=== PATIENT | male | born 1960 | race African-American/Black ===

== ENCOUNTER 2017-03-13 13:33 | Emergency (ER) | payer SELFPAY ==
[2017-03-13] MEDS ORDERED: NORMAL SALINE 1000 ML 1,000 ML IV PRN (13:41)
[2017-03-13] MEDS ORDERED: INSULIN REG, HUMAN 100 UNIT/ML 3 ML VIAL (PYX) IV ONE (13:41)
[2017-03-13 13:49] VITALS: BP 182/88
[2017-03-13 13:58] LABS: ABSOLUTE BASOPHILS # (AUTO) 0.1 10^3/uL (0.0-0.2); ABSOLUTE EOSINOPHILS # (AUTO) 0.1 10^3/uL (0.0-0.6); ABSOLUTE LYMPHOCYTES (AUTO) 1.6 10^3/uL (0.5-4.7); ABSOLUTE MONOCYTES (AUTO) 0.5 10^3/uL (0.1-1.4); ABSOLUTE NEUT (AUTO) 4.7 10^3/uL (1.7-8.2); BASOPHILS % (AUTO) 0.8 % (0-2); EOSINOPHILS % (AUTO) 1.7 % (0-6); HEMATOCRIT 43.7 % (37.9-51.0); HEMOGLOBIN 14.8 g/dL (13.5-17.0); HGB HCT DIFFERENCE 0.7; LYMPHOCYTES % (AUTO) 22.7 % (13-45); MEAN CORPUSCULAR HEMOGLOBIN 30.6 pg (27.0-33.4); MEAN CORPUSCULAR HGB CONC 33.8 g/dL (32.0-36.0); MEAN CORPUSCULAR VOLUME 91 fl (80-97); MONOCYTES % (AUTO) 6.9 % (3-13); RED BLOOD COUNT 4.83 10^6/uL (4.35-5.55); RED CELL DISTRIBUTION WIDTH 13.1 % (11.5-14.0); SEGMENTED NEUTROPHILS % (AUTO) 67.9 % (42-78)
--- NOTE | 2017-03-13 14:15 | ER Document Report ---
ED General - General Chief Complaint: High Blood Sugar Stated Complaint: SUGAR CONCERNS Time Seen by Provider: 03/13/17 13:40 Mode of Arrival: Medic Information source: Patient Notes: 56-year-old diabetic male who is homeless and states he has not eaten in 2 days presents with a blood sugar of 500. Patient's only concern is being fed. He denies any fevers or chills denies any nausea vomiting or diarrhea. Patient is insistent that he receive food even though he knows his blood sugar will go up TRAVEL OUTSIDE OF THE [place] IN LAST 30 DAYS: No - HPI Onset: Other Onset/Duration: Persistent Quality of pain: No pain Severity: Mild Pain Level: Denies Associated symptoms: Other Exacerbated by: Denies Relieved by: Denies Similar symptoms previously: Yes Recently seen / treated by doctor: Yes - Related Data Allergies/Adverse Reactions: No Known Allergies Allergy (Verified 01/18/16 04:25) Home Medications: Current Home Medications No Home Medications 03/13/17 [History] Past Medical History - Social History Smoking Status: Never Smoker Cigarette use (# per day): No Chew tobacco use (# tins/day): No Smoking Education Provided: No Family History: Reviewed & Not Pertinent - Past Medical History Cardiac Medical History: Reports: Hx Hypertension Endocrine Medical History: Reports: Hx Diabetes Mellitus Type 1, Hx Diabetes Mellitus Type 2 Psychiatric Medical History: Reports: Hx Depression - anxiety Review of Systems - Review of Systems Notes: REVIEW OF SYSTEMS: CONSTITUTIONAL : Denies fever, chills, or sweats. Denies recent illness. EENT: Denies eye, ear, throat, or mouth pain or symptoms. Denies nasal or sinus congestion or discharge. Denies throat, tongue, or mouth swelling or difficulty swallowing. CARDIOVASCULAR: Denies chest pain. Denies palpitations or racing or irregular heart beat. Denies ankle edema. RESPIRATORY: Denies cough, cold, or chest congestion. Denies shortness of breath, difficulty breathing, or wheezing. GASTROINTESTINAL: Denies abdominal pain or distention. Denies nausea, vomiting , or diarrhea. Denies blood in vomitus, stools, or per rectum. Denies black, tarry stools. Denies constipation. GENITOURINARY: Denies difficulty urinating, painful urination, burning, frequency, blood in urine, or discharge. MUSCULOSKELETAL: Denies back or neck pain or stiffness. Denies joint pain or swelling. SKIN: Denies rash, lesions or sores. HEMATOLOGIC : Denies easy bruising or bleeding. LYMPHATIC: Denies swollen, enlarged glands. NEUROLOGICAL: chronic neuropathy PSYCHIATRIC: Denies anxiety or stress. Denies depression, suicidal ideation, or homicidal ideation. ALL OTHER SYSTEMS REVIEWED AND NEGATIVE. Dictation was performed using [employer] voice recognition software PHYSICAL EXAMINATION: GENERAL: Well-appearing, well-nourished and in no acute distress. HEAD: Atraumatic, normocephalic. EYES: Pupils equal round and reactive to light, extraocular movements intact, sclera anicteric, conjunctiva are normal. ENT: Nares patent, oropharynx clear without exudates. Moist mucous membranes. NECK: Normal range of motion, supple without lymphadenopathy LUNGS: Breath sounds clear to auscultation bilaterally and equal. No wheezes rales or rhonchi. HEART: Regular rate and rhythm without murmurs ABDOMEN: Soft, nontender, nondistended abdomen. No guarding, no rebound. No masses appreciated. Musculoskeletal: Normal range of motion, no pitting or edema. No cyanosis. NEUROLOGICAL: Baseline PSYCH: Normal mood, normal affect. SKIN: Warm, Dry, normal turgor, no rashes or lesions noted. Physical Exam - Vital signs Vitals: Temp Pulse Resp BP Pulse Ox 98.0 F 81 20 182/88 H 99 03/13/17 13:41 03/13/17 13:41 03/13/17 13:41 03/13/17 13:41 03/13/17 13:41 Course - Re-evaluation Re-evalutation: 03/13/17 14:17 Lab work is pending to rule out DKA however patient does not appear to have any signs of diabetic ketoacidosis he is more concerned about eating at this point I have bargained with him that I should bring his blood sugar down before allow him to eat 03/13/17 18:18 Patient's blood sugar did decrease, I stated he could eat, it appears prior to patient being discharged patient wanted to leave. He does not wish to have any medications for home Patient is in no distress at this time does not meet DKA After performing a Medical Screening Examination, I estimate there is LOW risk for RUPTURED ESOPHAGUS, PNEUMOTHORAX, PULMONARY EMBOLISM, ACUTE CORONARY SYNDROME, OR THORACIC AORTIC DISSECTION, thus I consider the discharge disposition reasonable. I have reevaluated this patient multiple times and no significant life threatening changes are noted. The patient and I have discussed the diagnosis and risks, and we agree with discharging home with close follow-up. We also discussed returning to the Emergency Department immediately if new or worsening symptoms occur. We have discussed the symptoms which are most concerning (e.g., bloody sputum, worsening pain or shortness of breath) that necessitate immediate return. - Vital Signs Vital signs: Temp Pulse Resp BP Pulse Ox 98.0 F 81 20 182/88 H 99 03/13/17 13:41 03/13/17 13:41 03/13/17 13:41 03/13/17 13:41 03/13/17 13:41 - Laboratory Result Diagrams: 03/13/17 13:45 03/13/17 13:45 Laboratory results interpreted by me: 03/13/17 03/13/17 03/13/17 13:45 14:43 15:17 Sodium 132.7 L BUN 26 H Creatinine 1.79 H Est GFR ( Amer) 47 L Est GFR (Non-Af Amer) 39 L Glucose 475 H* POC Glucose 150 H Urine Protein 30 H Urine Glucose (UA) >=500 H Urine Ketones TRACE H Urine Blood SMALL H Ur Leukocyte Esterase SMALL H Discharge - Discharge Clinical Impression: Hyperglycemia Condition: Stable Disposition: HOME, SELF-CARE Additional Instructions: Follow up with your physician tomorrow for further care or return to the ED IMMEDIATELY if symptoms worsen or new concerns occur. If you cannot afford to follow up with your primary care physician a list of low cost clinics have been provided at the end of your discharge papers as well. Referrals: LOCAL,NO [Primary Care Provider] - Follow up as needed
[2017-03-13 14:26] LABS: ALANINE AMINOTRANSFERASE 27 U/L (21-72); ALBUMIN 3.9 g/dL (3.5-5.0); ALKALINE PHOSPHATASE 75 U/L (38-126); ANION GAP 11 (5-19); ASPARTATE AMINO TRANSFERASE 17 U/L (17-59); BILIRUBIN,DIRECT 0.4 mg/dL (0.0-0.4); BILIRUBIN,TOTAL 0.8 mg/dL (0.2-1.3); BLOOD UREA NITROGEN 26 mg/dL (7-20); CALCIUM 9.5 mg/dL (8.4-10.2); CARBON DIOXIDE 22 mmol/L (22-30); CHLORIDE 100 mmol/L (98-107); CREATININE RESULT 1.79 mg/dL (0.52-1.25); POTASSIUM 4.2 mmol/L (3.6-5.0); SODIUM 132.7 mmol/L (137-145); TOTAL PROTEIN 6.8 g/dL (6.3-8.2)
[2017-03-13 14:29] LABS: VENOUS BLOOD BASE EXCESS -0.9 mmol/L; VENOUS BLOOD HCO3 24.5 mmol/L (20-32); VENOUS BLOOD PH 7.37 (7.30-7.42)
[2017-03-13 14:39] LABS: GLUCOSE 475 mg/dL (75-110)
[2017-03-13 14:58] LABS: APPEARANCE,URINE SLIGHTLY-CLOUDY; BILIRUBIN,URINE NEGATIVE (NEGATIVE); GLUCOSE, URINE >=500 mg/dL (NEGATIVE); KETONES,URINE TRACE mg/dL (NEGATIVE); LEUKOCYTE ESTERASE,URINE SMALL (NEGATIVE); NITRITE,URINE NEGATIVE (NEGATIVE); PROTEIN,URINE 30 mg/dL (NEGATIVE); URINE SPECIFIC GRAVITY 1.028; UROBILINOGEN,URINE NEGATIVE mg/dL (<2.0)
== END 2017-03-13 16:30 | disposition home or self-care (01) ==
LOC: ER 13:33
DX: E11.65 Type 2 diabetes mellitus with hyperglycemia (principal); E11.40 Type 2 diabetes mellitus with diabetic neuropathy, unspecified; I10 Essential (primary) hypertension; Z59.0 Homelessness
CPT/HCPCS: 99284; 96360; 36415; 82962; 85025; 80053; 81001; 82803; J1815; J7030

== ENCOUNTER 2017-03-13 17:42 | Emergency (ER) | payer SELFPAY ==
[2017-03-13 17:54] VITALS: BP 165/79
--- NOTE | 2017-03-13 18:57 | ER Document Report ---
ED Blood Sugar Problem - General Chief Complaint: High Blood Sugar Stated Complaint: BLOOD SUGAR CONCERN Time Seen by Provider: 03/13/17 18:19 Information source: [facility] Records Notes: This 56-year-old diabetic patient was seen in emergency room earlier today. He had been out of his insulin for 3 months by his history, he is homeless and has no money. His blood sugar was 475. He received IV fluids, insulin, was demanding a meal and was offered crackers to which he became quite rude and abusive toward the nursing staff. His provider got tied up in an emergency and the patient was discharged after he was seen by the patient navigator, the nurse plant production manager, and the psychology product architect. He was given resources. The staff here reports that he left the emergency room with security being involved , that he went to the cafeteria and ate quite a lot of food to run his blood sugar back up. Apparently this is what happened because his sugar was over 400 when he came back again, most recently was 387. Review of his records for the past 14 months shows he has never been ketotic or acidotic. Today there was trace ketones in the urine and that is the only time there has been any ketones in the urine. I suggested to the patient that he should probably take metformin and glyburide , as these are on the $4 list, it is not critical he take insulin since he is obviously not insulin-dependent he has insulin resistant. He went into a long dissertation about his lack of funds, lack of resources, diabetic neuropathy, being unable to work etc. The nursing staff reported that he had been receiving medications for free for quite some time but apparently does not any longer. He will be given an oral dose of metformin, glyburide and lisinopril. He will also be given prescriptions prescriptions for those medications at this time. They are all on the $4 list at [facility]. TRAVEL OUTSIDE OF THE [place] IN LAST 30 DAYS: No - Related Data Allergies/Adverse Reactions: No Known Allergies Allergy (Verified 01/18/16 04:25) Past Medical History - General Information source: Patient, [facility] Records - Social History Smoking Status: Never Smoker Cigarette use (# per day): No Chew tobacco use (# tins/day): No Smoking Education Provided: No Frequency of alcohol use: None Drug Abuse: None Occupation: Unemployed Lives with: Homeless Family History: Reviewed & Not Pertinent - Past Medical History Cardiac Medical History: Reports: Hx Hypertension Pulmonary Medical History: Reports: None EENT Medical History: Reports: None Neurological Medical History: Reports: Other - Diabetic peripheral neuropathy Endocrine Medical History: Reports: Hx Diabetes Mellitus Type 2 Renal/ Medical History: Reports: None GI Medical History: Reports: None Musculoskeltal Medical History: Reports None Psychiatric Medical History: Reports: Hx Depression - anxiety Surgical Hx: Negative Review of Systems - Review of Systems Constitutional: Other - Increased thirst EENT: No symptoms reported Cardiovascular: No symptoms reported Respiratory: No symptoms reported Gastrointestinal: No symptoms reported Genitourinary: Other - Increased urination Musculoskeletal: See HPI Skin: No symptoms reported Hematologic/Lymphatic: No symptoms reported Neurological/Psychological: Other - Numbness tingling pain to the feet secondary to diabetic peripheral neuropathy Physical Exam - Vital signs Vitals: Temp Pulse Resp BP Pulse Ox 98.3 F 83 16 165/79 H 98 03/13/17 17:53 03/13/17 17:53 03/13/17 17:53 03/13/17 17:53 03/13/17 17:53 Interpretation: Normal - General General appearance: Appears well, Alert In distress: None - HEENT Head: Normocephalic, Atraumatic Eyes: Normal Pupils: PERRL - Respiratory Respiratory status: No respiratory distress - Cardiovascular Rhythm: Regular - Abdominal Inspection: Normal - Back Back: Normal - Extremities General upper extremity: Normal inspection General lower extremity: Normal inspection - Neurological Neuro grossly intact: Yes - Psychological Associated symptoms: Normal affect, Normal mood Course - Re-evaluation Re-evalutation: 03/13/17 19:25 When I tried to explain to the patient that he is receiving the medications that would be adequate for his problem, he became somewhat belligerent argumentative stating he needed to be admitted to the hospital and monitored. I told him he has never been acidotic, never been ketotic on any other visits here since early 2015. He want to argue about his history prior to that. I reiterated that he did not need to be in the hospital to take outpatient medications. I have eventually felt it necessary to call security to deal with this unreasonable man who wants us to solve all his problems for him without any effort on his part. - Vital Signs Vital signs: Temp Pulse Resp BP Pulse Ox 98.3 F 83 16 165/79 H 98 03/13/17 17:53 03/13/17 17:53 03/13/17 17:53 03/13/17 17:53 03/13/17 17:53 Discharge - Discharge Clinical Impression: High blood pressure associated with diabetes Hyperglycemia due to type 2 diabetes mellitus Qualifiers: Diabetes mellitus group home insulin use: unspecified group home insulin use status Qualified Code(s): E11.65 - Type 2 diabetes mellitus with hyperglycemia Condition: Stable Disposition: HOME, SELF-CARE Additional Instructions: The medications that were prescribed for you to treat your diabetes and high blood pressure on the $4 month list at [facility]. You wre given a dose of these medications now and should be fine until tomorrow. You should make arrangements to secure the medications that you need to manage your medical problems. Use the resource list are provided earlier, follow-up with social sciences research scientist and explore any other options that may be out of their in the community for assistance. Prescriptions: Glyburide 2.5 mg PO DAILY #30 tablet Lisinopril 20 mg PO DAILY #30 tablet Metformin HCl [Glucophage] 850 mg PO BID #60 tablet
[2017-03-13] MEDS ORDERED: LISINOPRIL 10 MG TABLET PO ONE (19:15)
[2017-03-13] MEDS ORDERED: METFORMIN HCL 500 MG TABLET PO ONE (19:15)
[2017-03-13] MEDS ORDERED: GLYBURIDE 2.5 MG TABLET PO ONE (19:16)
== END 2017-03-13 19:42 | disposition home or self-care (01) ==
LOC: ER 17:42
DX: E11.65 Type 2 diabetes mellitus with hyperglycemia (principal); T38.3X6A Underdosing of insulin and oral hypoglycemic [antidiabetic] drugs, initial encounter; Z91.120 Patient's intentional underdosing of medication regimen due to financial hardship; Z91.14 Patient's other noncompliance with medication regimen; E11.40 Type 2 diabetes mellitus with diabetic neuropathy, unspecified; I15.2 Hypertension secondary to endocrine disorders
CPT/HCPCS: 99283; 82962; J3490

== ENCOUNTER 2017-05-01 12:55 | Inpatient (IN) | payer OTHER ==
[2017-05-01] MEDS ORDERED: NORMAL SALINE 1000 ML 1,000 ML IV ONE ×2 (13:28)
[2017-05-01 13:44] LABS: ABSOLUTE BASOPHILS # (AUTO) 0.1 10^3/uL (0.0-0.2); ABSOLUTE LYMPHOCYTES (AUTO) 0.9 10^3/uL (0.5-4.7); ABSOLUTE MONOCYTES (AUTO) 1.3 10^3/uL (0.1-1.4); ABSOLUTE NEUT (AUTO) 11.3 10^3/uL (1.7-8.2); BASOPHILS % (AUTO) 0.4 % (0-2); EOSINOPHILS % (AUTO) 0.3 % (0-6); HEMATOCRIT 39.7 % (37.9-51.0); HEMOGLOBIN 13.1 g/dL (13.5-17.0); LYMPHOCYTES % (AUTO) 6.7 % (13-45); MEAN CORPUSCULAR HGB CONC 32.9 g/dL (32.0-36.0); MEAN CORPUSCULAR VOLUME 91 fl (80-97); MONOCYTES % (AUTO) 9.5 % (3-13); PLATELET COUNT 241 10^3/uL (150-450); RED BLOOD COUNT 4.36 10^6/uL (4.35-5.55); RED CELL DISTRIBUTION WIDTH 13.3 % (11.5-14.0); SEGMENTED NEUTROPHILS % (AUTO) 83.1 % (42-78); TOTAL CELLS COUNTED % (AUTO) 100 %; WHITE BLOOD COUNT 13.6 10^3/uL (4.0-10.5)
[2017-05-01 13:50] LABS: VENOUS BLOOD BASE EXCESS -3.1 mmol/L; VENOUS BLOOD HCO3 21.7 mmol/L (20-32); VENOUS BLOOD PCO2 37.9 mmHg (35-63); VENOUS BLOOD PH 7.38 (7.30-7.42)
[2017-05-01 14:19] LABS: ALANINE AMINOTRANSFERASE 20 U/L (21-72); ALBUMIN 3.5 g/dL (3.5-5.0); ALKALINE PHOSPHATASE 135 U/L (38-126); ANION GAP 16 (5-19); ASPARTATE AMINO TRANSFERASE 25 U/L (17-59); BILIRUBIN,DIRECT 0.6 mg/dL (0.0-0.4); BILIRUBIN,TOTAL 0.7 mg/dL (0.2-1.3); BLOOD UREA NITROGEN 29 mg/dL (7-20); CALCIUM 8.5 mg/dL (8.4-10.2); CARBON DIOXIDE 20 mmol/L (22-30); CHLORIDE 95 mmol/L (98-107); SODIUM 130.5 mmol/L (137-145); TOTAL PROTEIN 7.6 g/dL (6.3-8.2)
[2017-05-01 14:22] LABS: AMORPHOUS SEDIMENT,URINE TRACE /HPF; APPEARANCE,URINE SLIGHTLY-CLOUDY; BILIRUBIN,URINE NEGATIVE (NEGATIVE); COLOR,URINE STRAW; GLUCOSE, URINE >=500 mg/dL (NEGATIVE); KETONES,URINE 20 mg/dL (NEGATIVE); LEUKOCYTE ESTERASE,URINE SMALL (NEGATIVE); NITRITE,URINE NEGATIVE (NEGATIVE); PROTEIN,URINE 30 mg/dL (NEGATIVE); URINE SPECIFIC GRAVITY 1.024; UROBILINOGEN,URINE NEGATIVE mg/dL (<2.0)
[2017-05-01 14:40] LABS: GLUCOSE 584 mg/dL (75-110)
[2017-05-01] MEDS ORDERED: INSULIN REG, HUMAN 100 UNIT/ML 3 ML VIAL (PYX) SUBCUT ONE (15:30)
--- NOTE | 2017-05-01 15:36 | RADIOLOGY REPORT (SQ) ---
EXAM DESCRIPTION: FOOT RIGHT COMPLETE COMPLETED DATE/TIME: 05/01/2017 3:23 pm REASON FOR STUDY: gangrene, fracture? COMPARISON: 10/02/2015 NUMBER OF VIEWS: Three views. TECHNIQUE: AP, lateral and oblique radiographic images acquired of the right foot. LIMITATIONS: None. FINDINGS: MINERALIZATION: Normal. BONES: Old healed fractures involving the base of the 4th and 5th metatarsals. There is slightly sha ggy appearance involving the prior fracture sites which may represent sequela to prior healing or sup erimposed osteomyelitis. Osseous structures otherwise intact. JOINTS: No effusions. SOFT TISSUES: Diffuse soft tissue swelling most notably laterally. Vascular calcifications. OTHER: No other significant finding. IMPRESSION: PATIENT WITH PRIOR HEALED 4TH AND 5TH METATARSAL FRACTURES WITH SHAGGY APPEARANCE INVOLV ING THE FRACTURE SITES WHICH COULD REPRESENT SEQUELA OF THE PRIOR HEALING OR SUPERIMPOSED OSTEOMYELIT IS GIVEN PATIENT'S HISTORY OF ULCERATION. MRI IS FOR FURTHER EVALUATION CLINICALLY INDICATED. TECHNICAL DOCUMENTATION: JOB ID: [id number] [employer]- All Rights Reserved
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
[2017-05-01] MEDS ORDERED: ONDANSETRON 4 MG TAB.RAPDIS PO PRN (16:30)
[2017-05-01] MEDS ORDERED: ACETAMINOPHEN 325 MG TABLET PO PRN (16:30)
[2017-05-01] MEDS ORDERED: NORMAL SALINE 1000 ML 1,000 ML IV PRN (16:30)
[2017-05-01] MEDS ORDERED: ONDANSETRON HCL INJ/PF 4 MG/2 ML SDV IV PRN (16:30)
[2017-05-01] MEDS ORDERED: DEXTROSE 40% GEL 15 GM TUBE PO PRN ×2 (16:38)
[2017-05-01] MEDS ORDERED: GLUCAGON,HUMAN RECOMB 1 MG INJ IM PRN (16:38)
[2017-05-01] MEDS ORDERED: DEXTROSE 50%-WATER 25 GM/50 ML DISP.SYRIN IV PRN ×2 (16:38)
--- NOTE | 2017-05-01 16:48 | PDOC H&P ---
History of Present Illness Admission Date/PCP: 05/01/17 16:21 Patient complains of: Pain in his right foot. History of Present Illness: LEEANNE WYLIE is a 56 year old male who has a history of diabetes and is homeless. He reports that he has had an ulcer on the lateral part of his right foot for the last 3 months over the last several days she has had worsening pain and some fevers and chills at home. He is also had nausea and has had difficulty tolerating p.o. He reports that he gets cold at night because he is homeless but even during the daytime has developed some chills. He denies any purulent drainage from the wound however he does report a significant amount of pain. Patient has been evaluated by surgery and they recommend an MRI to make certain he does not have osteomyelitis. The patient is admitted for treatment of a diabetic foot ulcer and possible osteomyelitis of the right foot. Past Medical History Cardiac Medical History: Reports: Hyperlipidema, Hypertension Pulmonary Medical History: Reports: None EENT Medical History: Reports: None Neurological Medical History: Reports: None Endocrine Medical History: Reports: Diabetes Mellitus Type 2 Malignancy Medical History: Reports: None GI Medical History: Reports: None Psychiatric Medical History: Reports: Depression - anxiety Traumatic Medical History: Reports: None Hematology: Reports: None Infectious Medical History: Reports: None Past Surgical History Past Surgical History: Reports: Other - Umbilical hernia repair Social History Information Source: Patient Lives with: Homeless Smoking Status: Current Every Day Smoker Frequency of Alcohol Use: None Hx Recreational Drug Use: No Drugs: None Hx Prescription Drug Abuse: No - Advance Directive Resuscitation Status: Full Code Family History Family History: Father in his 60s but no complications. Mother in her 30s from diabetes. Parental Family History Reviewed: Yes Children Family History Reviewed: No Sibling(s) Family History Reviewed.: No Medication/Allergy Home Medications: No Home Medications 05/01/17 Allergies/Adverse Reactions: metformin Allergy (Verified 05/01/17 13:30) 70/30 insulin Allergy (Uncoded 05/01/17 13:30) Review of Systems Constitutional: PRESENT: anorexia, chills, fever(s). ABSENT: night sweats Eyes: ABSENT: visual disturbances Ears: ABSENT: hearing changes Cardiovascular: ABSENT: chest pain, dyspnea on exertion, edema, orthropnea, palpitations Respiratory: ABSENT: cough, hemoptysis Gastrointestinal: ABSENT: abdominal pain, constipation, diarrhea, hematemesis, hematochezia, nausea, vomiting Musculoskeletal: PRESENT: other - Pain in his right foot. Integumentary: PRESENT: other - Patient has an approximately 4 cm ulcer on his right lateral foot about mid shaft over the fifth metatarsal Neurological: PRESENT: paresthesias Psychiatric: ABSENT: depression Endocrine: ABSENT: cold intolerance, heat intolerance, polydipsia, polyuria Hematologic/Lymphatic: ABSENT: easy bleeding, easy bruising Physical Exam Vital Signs: Temp Pulse Resp BP Pulse Ox 24 H 176/79 H 96 05/01/17 15:01 05/01/17 15:01 05/01/17 15:01 General appearance: PRESENT: no acute distress Head exam: PRESENT: atraumatic, normocephalic Eye exam: PRESENT: conjunctiva pink, EOMI, PERRLA. ABSENT: scleral icterus Ear exam: PRESENT: normal external ear exam Mouth exam: PRESENT: moist, tongue midline Neck exam: ABSENT: carotid bruit, JVD, lymphadenopathy, thyromegaly Respiratory exam: PRESENT: clear to auscultation manuel. ABSENT: rales, rhonchi, wheezes Cardiovascular exam: PRESENT: RRR. ABSENT: diastolic murmur, rubs, systolic murmur GI/Abdominal exam: PRESENT: normal bowel sounds, soft. ABSENT: distended, guarding, mass, organolmegaly, rebound, tenderness Rectal exam: PRESENT: deferred Extremities exam: PRESENT: other - Ulcer on the right lateral foot.. ABSENT: calf tenderness, clubbing, pedal edema Neurological exam: PRESENT: alert, awake, oriented to person, oriented to place , oriented to time, oriented to situation, CN II-XII grossly intact. ABSENT: motor sensory deficit Psychiatric exam: PRESENT: appropriate affect Skin exam: PRESENT: other - Patient has a diabetic foot ulcer on his lateral midfoot area over the fifth metatarsal area. There is some eschar make stage in this difficult at this time. He does have tender with palpation of the fifth metatarsal. Results Impressions: Foot X-Ray 05/01/17 14:36 IMPRESSION: PATIENT WITH PRIOR HEALED 4TH AND 5TH METATARSAL FRACTURES WITH SHAGGY APPEARANCE INVOLVING THE FRACTURE SITES WHICH COULD REPRESENT SEQUELA OF THE PRIOR HEALING OR SUPERIMPOSED OSTEOMYELITIS GIVEN PATIENT'S HISTORY OF ULCERATION. MRI IS FOR FURTHER EVALUATION CLINICALLY INDICATED. Assessment & Plan - Diagnosis (1) Diabetic foot infection Is this a current diagnosis for this admission?: Yes Plan: Patient is to get an MRI to see if there is any osteomyelitis. General surgery has evaluated the patient and most likely will be doing debridement. Will start on Zosyn. He has no history of MRSA. (2) Hypertension Is this a current diagnosis for this admission?: Yes Plan: His blood pressures currently elevated but is in a good bit of pain. We will treat his pain and his blood pressure still remains elevated we will start on Norvasc which she has taken previously. He is also been on Prinivil previously. 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 We will go ahead and start him on 20 units of Lantus twice daily and sliding scale insulin. (4) Hyperlipidemia Is this a current diagnosis for this admission?: Yes - Time Time Spent: 50 to 70 Minutes - Inpatient Certification Medical Necessity: Need Close Monitoring Due to Risk of Patient Decompensation, Need for IV Antibiotics
[2017-05-01] MEDS: OXYCODONE-ACETAMINOPHEN 5-325 MG TABLET PO PRN (17:27)
--- NOTE | 2017-05-01 17:33 | RADIOLOGY REPORT (SQ) ---
EXAM DESCRIPTION: MRI RT LOWER EXTREMITY WITHOUT COMPLETED DATE/TIME: 05/01/2017 5:09 pm REASON FOR STUDY: ulceration, gangrene? osteo? COMPARISON: RIGHT FOOT FILMS 05/01/2017, 10/02/2015 TECHNIQUE: Multiplanar imaging of the RIGHT FOOT to include fat and fluid sensitive sequences. LIMITATIONS: None. FINDINGS: Patient has a 2 x 1.7 cm diameter soft tissue ulcer along the lateral and plantar aspect o f the midfoot near the base of the 5th metatarsal. There is a trace amount of fluid in the soft tissues along the base of the 5th metatarsal on coronal image 17 and axial image 29. Periosteal new bone seen in this area on plain films 10/02/2015 has reso rt. There is cortical thinning, and abnormal bone marrow signal of the proximal half of the 5th meta tarsal compatible with osteomyelitis. The peroneus brevis insertion on the base of the 5th metatarsal is intact. There is diffuse forefoot cellulitis and myositis, intra osseous muscles are edematous on STIR images . There is diffuse skin thickening and subcutaneous edema throughout the forefoot. No other marrow signal abnormalities worrisome for osteomyelitis. IMPRESSION: Ulcer over the base of the 5th metatarsal with bony cortical with erosion and abnormal m arrow signal in the proximal 2/3 of the 5th metatarsal compatible with osteomyelitis. TECHNICAL DOCUMENTATION: JOB ID: [id number] ID [employer]- All Rights Reserved
[2017-05-01] MEDS ORDERED: INFLUENZA ADLT QUAD (36MOS+) 2017-18 VAC 0.5 ML SYR IM PRN (19:02)
[2017-05-01] MEDS: PIPERACILLIN SODIUM/TAZOBACTAM 3.375 GM in NORMAL SALINE 100 ML IV SCH ×2 (19:21→23:27)
--- NOTE | 2017-05-01 20:26 | PDOC CONSULTATION ---
Consultation Consult Date: 05/01/17 Consult reason:: chronic ulcer right foot with osteomyelitis 5th mettatarsal History of Present Illness Admission Date/PCP: 05/01/17 16:30 Patient complains of: right foot pains History of Present Illness: This is a 56-year-old male with diabetes and homeless noted to have ulcer along the right foot for several months. Recently complaining of severe pains and worst today and came to the ED. MRI of the right foot revealed osteomyelitis of the distal right fifth metatarsal bone. Past Medical History Cardiac Medical History: Reports: Hyperlipidema, Hypertension Pulmonary Medical History: Reports: None EENT Medical History: Reports: None Neurological Medical History: Reports: None Endocrine Medical History: Reports: Diabetes Mellitus Type 1, Diabetes Mellitus Type 2 Malignancy Medical History: Reports: None GI Medical History: Reports: None Psychiatric Medical History: Reports: Depression Traumatic Medical History: Reports: None Hematology: Reports: None Infectious Medical History: Reports: None Past Surgical History Past Surgical History: Reports: Other - Umbilical hernia repair Social History Lives with: Homeless Smoking Status: Current Every Day Smoker Number of Years Smokin Frequency of Alcohol Use: None Hx Recreational Drug Use: No Drugs: None Hx Prescription Drug Abuse: No - Advance Directive Resuscitation Status: Full Code Family History Family History: Reviewed & Not Pertinent Parental Family History Reviewed: No Children Family History Reviewed: No Sibling(s) Family History Reviewed.: No Medication/Allergy Home Medications: No Home Medications 05/01/17 Allergies/Adverse Reactions: metformin Allergy (Verified 05/01/17 13:30) 70/30 insulin Allergy (Uncoded 05/01/17 13:30) Review of Systems Constitutional: PRESENT: chills Eyes: PRESENT: other - No apparent visual or hearing changes Cardiovascular: PRESENT: other - Denies chest pains nor shortness of breath Gastrointestinal: PRESENT: other - No nausea vomiting diarrhea no constipation Genitourinary: PRESENT: other - No dysuria Musculoskeletal: PRESENT: other - Severe pains along the right foot where the ulcer is and metatarsal bone appears to be somewhat exposed Integumentary: PRESENT: other - Chronic ulcer and painful diabetic ulcer right foot Neurological: PRESENT: numbness - Is initially numbness of both feet but now with severe pains along the right foot ulcer Physical Exam Vital Signs: Temp Pulse Resp BP Pulse Ox 100.1 F 76 18 132/57 H 97 05/01/17 17:25 11/10/17 17:25 05/01/17 17:25 05/01/17 17:25 05/01/17 17:25 General appearance: PRESENT: mild distress Head exam: PRESENT: atraumatic, normocephalic Eye exam: PRESENT: conjunctiva pink Mouth exam: PRESENT: moist, tongue midline Neck exam: PRESENT: full ROM Respiratory exam: PRESENT: clear to auscultation manuel Cardiovascular exam: PRESENT: RRR Pulses: PRESENT: +2 pedal pulses bilateral Vascular exam: PRESENT: normal capillary refill GI/Abdominal exam: PRESENT: soft - Nontender Rectal exam: PRESENT: deferred Extremities exam: PRESENT: other - Is about a 2 x 3 cm ulceration along the right lateral foot with marked tenderness and some swelling. The bone appears to be partially exposed. Musculoskeletal exam: PRESENT: tenderness - Tenderness along the right lateral foot Neurological exam: PRESENT: alert, oriented to person, oriented to place, oriented to time, oriented to situation Psychiatric exam: PRESENT: appropriate affect Skin exam: PRESENT: other - Ulceration along the right lateral foot with Marcaine tenderness and some swelling. Results Impressions: Foot X-Ray 05/01/17 14:36 IMPRESSION: PATIENT WITH PRIOR HEALED 4TH AND 5TH METATARSAL FRACTURES WITH SHAGGY APPEARANCE INVOLVING THE FRACTURE SITES WHICH COULD REPRESENT SEQUELA OF THE PRIOR HEALING OR SUPERIMPOSED OSTEOMYELITIS GIVEN PATIENT'S HISTORY OF ULCERATION. MRI IS FOR FURTHER EVALUATION CLINICALLY INDICATED. Lower Extremity MRI 05/01/17 15:51 IMPRESSION: Ulcer over the base of the 5th metatarsal with bony cortical with erosion and abnormal marrow signal in the proximal 2/3 of the 5th metatarsal compatible with osteomyelitis. Assessment & Plan - Time Time Spent: 50 to 70 Minutes - Inpatient Certification Medical Necessity: Need for Pain Control, Need for IV Antibiotics, Need for Surgery - Plan Summary Plan Summary: Patient will need amputation of the right fifth metatarsal bone where the osteomyelitis is. This will be done within the next 24 4-48 hours as soon as he is blood sugar is well controlled and antibiotic therapy has been set.
[2017-05-01] MEDS: MORPHINE SULFATE 10 MG/ML INJ IV PRN (21:22)
[2017-05-01] MEDS: FAMOTIDINE 20 MG TABLET PO SCH (21:23)
[2017-05-01] MEDS ORDERED: INSULIN GLARGINE,HUM.REC.ANLOG 300 UNIT/3 ML INSULN.PEN SUBCUT SCH (22:00)
[2017-05-02] MEDS: MORPHINE SULFATE 10 MG/ML INJ IV PRN (03:41)
[2017-05-02] MEDS: OXYCODONE-ACETAMINOPHEN 5-325 MG TABLET PO PRN ×3 (03:42→20:03)
[2017-05-02 04:49] LABS: ABSOLUTE EOSINOPHILS # (AUTO) 0.1 10^3/uL (0.0-0.6); ABSOLUTE LYMPHOCYTES (AUTO) 1.5 10^3/uL (0.5-4.7); ABSOLUTE MONOCYTES (AUTO) 1.4 10^3/uL (0.1-1.4); BASOPHILS % (AUTO) 0.2 % (0-2); EOSINOPHILS % (AUTO) 0.6 % (0-6); HEMATOCRIT 34.6 % (37.9-51.0); HEMOGLOBIN 11.5 g/dL (13.5-17.0); LYMPHOCYTES % (AUTO) 11.5 % (13-45); MEAN CORPUSCULAR HEMOGLOBIN 29.6 pg (27.0-33.4); MEAN CORPUSCULAR HGB CONC 33.1 g/dL (32.0-36.0); MEAN CORPUSCULAR VOLUME 89 fl (80-97); MONOCYTES % (AUTO) 10.9 % (3-13); PLATELET COUNT 233 10^3/uL (150-450); RED BLOOD COUNT 3.88 10^6/uL (4.35-5.55); RED CELL DISTRIBUTION WIDTH 13.1 % (11.5-14.0); SEGMENTED NEUTROPHILS % (AUTO) 76.8 % (42-78); TOTAL CELLS COUNTED % (AUTO) 100 %
[2017-05-02 04:50] LABS: INTERNATIONAL RATION (INR) 0.98; PROTHROMBIN TIME 13.7 SEC (11.4-15.4)
[2017-05-02] MEDS: PIPERACILLIN SODIUM/TAZOBACTAM 3.375 GM in NORMAL SALINE 100 ML IV SCH ×3 (05:07→19:18)
[2017-05-02 05:12] LABS: ANION GAP 12 (5-19); BLOOD UREA NITROGEN 24 mg/dL (7-20); CALCIUM 8.3 mg/dL (8.4-10.2); CARBON DIOXIDE 19 mmol/L (22-30); CHLORIDE 106 mmol/L (98-107); GLUCOSE 268 mg/dL (75-110); MAGNESIUM 2.3 mg/dL (1.6-2.3); POTASSIUM 3.7 mmol/L (3.6-5.0); SODIUM 136.9 mmol/L (137-145)
[2017-05-02] MEDS: INSULIN LISPRO 100 UNIT/ML 3 ML VIAL SUBCUT PRN ×3 (07:29→21:56)
[2017-05-02] MEDS ORDERED: DEXTROSE 5%-NORMAL SALINE 1,000 ML IV PRN (09:03)
[2017-05-02] MEDS: IPRATROPIUM/ALBUTEROL 0.5-2.5 MG/3 ML AMPUL NEB PRN (09:09)
[2017-05-02] MEDS ORDERED: FENTANYL CITRATE INJ/PF 100 MCG/2 ML AMPUL IV PRN ×3 (09:14)
[2017-05-02] MEDS ORDERED: MORPHINE SULFATE 10 MG/ML INJ IV PRN (09:14)
[2017-05-02] MEDS ORDERED: PROMETHAZINE HCL INJ 25 MG/1 ML VIAL IV PRN (09:14)
[2017-05-02] MEDS ORDERED: DIPHENHYDRAMINE HCL 50 MG/ML VIAL IV PRN (09:14)
[2017-05-02] MEDS ORDERED: MEPERIDINE HCL/PF INJ 25 MG/1 ML DISP.SYRIN IV PRN (09:14)
[2017-05-02] MEDS ORDERED: FENTANYL CITRATE INJ/PF 100 MCG/2 ML AMPUL ONE ×2 (09:53→12:00)
[2017-05-02] MEDS ORDERED: ONDANSETRON HCL INJ/PF 4 MG/2 ML SDV ONE (09:53)
[2017-05-02] MEDS ORDERED: MIDAZOLAM 2 MG/2 ML INJ ONE (09:53)
[2017-05-02] MEDS ORDERED: PROPOFOL INJ 200 MG/20 ML VIAL IV ONE (09:53)
[2017-05-02] MEDS ORDERED: LIDOCAINE 1% INJ-PF (10 MG/ML) 30 ML SDV ONE (10:26)
--- NOTE | 2017-05-02 11:04 | PDOC PROGRESS REPORT ---
Subjective Progress Note for:: 05/02/17 Subjective:: Complains of pain in his right foot. Physical Exam Vital Signs: Temp Pulse Resp BP Pulse Ox 98.5 F 60 16 154/96 H 99 05/02/17 07:35 05/02/17 09:09 05/02/17 09:09 05/02/17 07:35 05/02/17 09:09 Intake & Output 05/01/17 05/02/17 05/03/17 06:59 06:59 06:59 Intake Total 150 225 Output Total 0 225 Balance 150 0 Weight 75 kg 75 kg General appearance: PRESENT: no acute distress Eye exam: PRESENT: conjunctiva pink. ABSENT: scleral icterus Mouth exam: PRESENT: moist, tongue midline Neck exam: ABSENT: JVD Respiratory exam: PRESENT: clear to auscultation manuel. ABSENT: rales, rhonchi, wheezes Cardiovascular exam: PRESENT: RRR. ABSENT: diastolic murmur, rubs, systolic murmur Pulses: PRESENT: normal dorsalis pedis pul GI/Abdominal exam: PRESENT: normal bowel sounds, soft. ABSENT: distended, guarding, mass, organolmegaly, rebound, tenderness Extremities exam: ABSENT: calf tenderness, clubbing, pedal edema Neurological exam: PRESENT: alert, awake, oriented to person, oriented to place , oriented to time, oriented to situation, CN II-XII grossly intact. ABSENT: motor sensory deficit Psychiatric exam: PRESENT: appropriate affect Skin exam: PRESENT: other - The patient has a diabetic foot ulcer on the right lateral mid foot area of the fifth met metatarsal Results Laboratory Results: 05/02/17 03:34 05/02/17 03:34 05/02/17 05/02/17 03:34 03:34 WBC 13.0 H RBC 3.88 L Hgb 11.5 L Hct 34.6 L MCV 89 MCH 29.6 MCHC 33.1 RDW 13.1 Plt Count 233 Seg Neutrophils % 76.8 Lymphocytes % 11.5 L Monocytes % 10.9 Eosinophils % 0.6 Basophils % 0.2 Absolute Neutrophils 10.0 H Absolute Lymphocytes 1.5 Absolute Monocytes 1.4 Absolute Eosinophils 0.1 Absolute Basophils 0.0 Sodium 136.9 L Potassium 3.7 Chloride 106 Carbon Dioxide 19 L Anion Gap 12 BUN 24 H Creatinine 1.36 H Est GFR ( Amer) > 60 Est GFR (Non-Af Amer) 54 L Glucose 268 H Calcium 8.3 L Magnesium 2.3 Impressions: Foot X-Ray 05/01/17 14:36 IMPRESSION: PATIENT WITH PRIOR HEALED 4TH AND 5TH METATARSAL FRACTURES WITH SHAGGY APPEARANCE INVOLVING THE FRACTURE SITES WHICH COULD REPRESENT SEQUELA OF THE PRIOR HEALING OR SUPERIMPOSED OSTEOMYELITIS GIVEN PATIENT'S HISTORY OF ULCERATION. MRI IS FOR FURTHER EVALUATION CLINICALLY INDICATED. Lower Extremity MRI 05/01/17 15:51 IMPRESSION: Ulcer over the base of the 5th metatarsal with bony cortical with erosion and abnormal marrow signal in the proximal 2/3 of the 5th metatarsal compatible with osteomyelitis. Assessment & Plan - Diagnosis (1) Diabetic foot infection Is this a current diagnosis for this admission?: Yes Plan: Patient had an MRI that shows osteomyelitis. General surgery has evaluated the patient and will be taking the patient for debridement. Will continue with Zosyn. He has no history of MRSA. (2) Hypertension Is this a current diagnosis for this admission?: Yes Plan: His blood pressures currently elevated but is in a good bit of pain. Will restart his Norvasc.. (3) Uncontrolled type 2 diabetes mellitus Qualifiers: Diabetes mellitus complication status: with unspecified complications Diabetes mellitus care home insulin use: without care home use Qualified Code( s): E11.8 - Type 2 diabetes mellitus with unspecified complications; E11.65 - Type 2 diabetes mellitus with hyperglycemia; E11.65 - Type 2 diabetes mellitus with hyperglycemia; E11.65 - Type 2 diabetes mellitus with hyperglycemia; E11.65 - Type 2 diabetes mellitus with hyperglycemia Is this a current diagnosis for this admission?: Yes Plan: Will increase the Lantus and continue sliding scale insulin. (4) Hyperlipidemia Is this a current diagnosis for this admission?: Yes - Time Time Spent with patient: 25-34 minutes - Inpatient Certification Medical Necessity: Need for IV Antibiotics
[2017-05-02] MEDS: INSULIN GLARGINE,HUM.REC.ANLOG 300 UNIT/3 ML INSULN.PEN SUBCUT SCH ×2 (11:19→21:56)
[2017-05-02] MEDS: FAMOTIDINE 20 MG TABLET PO SCH ×2 (11:19→21:57)
[2017-05-02] MEDS ORDERED: AMLODIPINE BESYLATE 10 MG TABLET PO ONE (12:00)
[2017-05-02] MEDS ORDERED: DIPHENHYDRAMINE HCL 50 MG/ML VIAL ONE (12:01)
[2017-05-02] MEDS: LABETALOL HCL INJ 20 MG/4 ML DISP.SYRIN IV ONE ×2 (12:05→14:22)
--- NOTE | 2017-05-02 12:33 | OPERATIVE REPORT E ---
Operative Report NAME: LEEANNE WYLIE : 1960 AGE: 56Y DATE OF SURGERY: 05/02/2017 ROOM: 401 PREOPERATIVE DIAGNOSIS: Osteomyelitis of the left fifth metatarsal bone with abscess. POSTOPERATIVE DIAGNOSIS: Osteomyelitis of the left fifth metatarsal bone with abscess. OPERATION: Amputation of the right fifth toe at the fifth metatarsal bone with debridement. SURGEON: KWAME LEONARDO M.D. ANESTHESIA: Local MAC. INDICATION: This is a 56-year-old male with a chronic ulcer of the right foot along the mid part of the lateral aspect. He was admitted last night after an MRI showed osteomyelitis of the right fifth metatarsal bone. Also the patient has a small amount of foul-smelling drainage. DESCRIPTION OF PROCEDURE: After adequate IV sedation, the patient was placed in the supine position. The right foot and ankle were then prepped and draped in the usual sterile fashion. Appropriate timeout was then called. Next, an elliptical incision around the base of the fifth toe extended all the way down around the ulcer site then mid lateral foot. Prior to this, there was some purulent material that expressed out initially on the ulcer that was cultured. Next the incision deepened down through the bone. The fifth digit was then removed and the tip of fifth metatarsal exposed. With the use of an Allis clamp, it was pulled slightly and dissection around the bone was done. Next with the use of a saw, the bone was divided close to *------* end. There was some necrotic tissue around the area and this was then divided using sharp dissection with a #10 and a #15 blade. The blood vessels were noted to be calcified. There was a small amount of oozing noted. There were a few areas around the tendon with some purulent material that was debrided. The tendon was pulled up and divided. There was some undermining underneath the plantar area. Tissue underneath the skin fairly vascularized, but the skin itself had some bleeding noted. The rest of the metatarsal bone was subsequently removed with the use of rongeur. Some specimen of soft bone were sent for culture. The bone was completely removed. Partial bone opposite the metatarsal bone was partially scraped with the use of curette to freshen the edges for better granulation tissue. The area was subsequently pulse lavaged with a total of 3 L of saline. Practically all that we could see where the purulent material was noted was all debrided. No evidence of any more purulent material noted on squeezing around the area of the ulcer site. The operative site roughly measured about 12 cm long x 5 cm wide x 4.5 cm deep at the completion of the procedure. Hemostasis was then obtained with the use of cautery. The area was subsequently packed with 1/4 inch Xeroform gauze and a sterile 4 x4 ABD pad and Kerlix were placed around the operative site and finally a 4 inch robert bandage wrapped around the operative site loosely. The patient tolerated the procedure well. Needle, instruments and sponge count were all correct. Estimated blood loss about 100 mL. The patient then brought to the recovery room in satisfactory condition. DICTATING PHYSICIAN: KWAME LEONARDO M.D. [id number] PHY#: [id number] ID: [id number] JOB#: [id number] ACCT: [id number] cc:KWAME LEONARDO M.D. >
[2017-05-02] MEDS ORDERED: ONDANSETRON HCL INJ/PF 4 MG/2 ML SDV IV PRN (16:21)
[2017-05-02] MEDS ORDERED: ONDANSETRON 4 MG TAB.RAPDIS PO PRN (16:22)
[2017-05-02] MEDS: NORMAL SALINE 1000 ML 1,000 ML IV PRN ×2 (17:30→22:04)
--- NOTE | 2017-05-02 21:13 | EKG REPORT ---
SEVERITY:- ABNORMAL ECG - SINUS RHYTHM NONSPECIFIC INTRAVENTRICULAR CONDUCTION DELAY NONSPECIFIC LATERAL ST-T CHANGES : Confirmed by: Jaspreet Gutierrez MD 02-May-2017 21:13:11
[2017-05-03] MEDS: PIPERACILLIN SODIUM/TAZOBACTAM 3.375 GM in NORMAL SALINE 100 ML IV SCH ×5 (00:41→23:17)
[2017-05-03] MEDS: OXYCODONE-ACETAMINOPHEN 5-325 MG TABLET PO PRN ×5 (00:45→19:15)
[2017-05-03 05:47] LABS: ABSOLUTE EOSINOPHILS # (AUTO) 0.2 10^3/uL (0.0-0.6); ABSOLUTE LYMPHOCYTES (AUTO) 1.1 10^3/uL (0.5-4.7); ABSOLUTE MONOCYTES (AUTO) 1.3 10^3/uL (0.1-1.4); ABSOLUTE NEUT (AUTO) 8.4 10^3/uL (1.7-8.2); BASOPHILS % (AUTO) 0.4 % (0-2); EOSINOPHILS % (AUTO) 1.6 % (0-6); HEMATOCRIT 32.4 % (37.9-51.0); HEMOGLOBIN 10.7 g/dL (13.5-17.0); LYMPHOCYTES % (AUTO) 10.2 % (13-45); MEAN CORPUSCULAR HEMOGLOBIN 29.8 pg (27.0-33.4); MEAN CORPUSCULAR HGB CONC 33.1 g/dL (32.0-36.0); MEAN CORPUSCULAR VOLUME 90 fl (80-97); MONOCYTES % (AUTO) 11.9 % (3-13); PLATELET COUNT 220 10^3/uL (150-450); RED CELL DISTRIBUTION WIDTH 13.1 % (11.5-14.0); SEGMENTED NEUTROPHILS % (AUTO) 75.9 % (42-78); TOTAL CELLS COUNTED % (AUTO) 100 %
[2017-05-03 06:27] LABS: ANION GAP 12 (5-19); BLOOD UREA NITROGEN 21 mg/dL (7-20); CALCIUM 7.9 mg/dL (8.4-10.2); CARBON DIOXIDE 18 mmol/L (22-30); CHLORIDE 107 mmol/L (98-107); GLUCOSE 244 mg/dL (75-110); POTASSIUM 4.1 mmol/L (3.6-5.0); SODIUM 136.5 mmol/L (137-145)
[2017-05-03] MEDS: INSULIN LISPRO 100 UNIT/ML 3 ML VIAL SUBCUT PRN ×3 (07:38→21:20)
[2017-05-03] MEDS: FAMOTIDINE 20 MG TABLET PO SCH ×2 (09:59→21:19)
[2017-05-03] MEDS: INSULIN GLARGINE,HUM.REC.ANLOG 300 UNIT/3 ML INSULN.PEN SUBCUT SCH ×2 (10:04→21:20)
[2017-05-03] MEDS: AMLODIPINE BESYLATE 10 MG TABLET PO SCH (10:04)
--- NOTE | 2017-05-03 10:37 | PDOC PROGRESS REPORT ---
Subjective Progress Note for:: 05/03/17 Subjective:: right foot pains but not as much as pre-op Physical Exam Vital Signs: Temp Pulse Resp BP Pulse Ox 98.7 F 68 20 132/60 H 95 05/03/17 08:00 05/03/17 08:00 05/03/17 08:00 05/03/17 08:00 05/03/17 08:00 Intake & Output 05/02/17 05/03/17 05/04/17 06:59 06:59 06:59 Intake Total 150 7760 Output Total 0 6100 Balance 150 1660 Weight 75 kg 80 kg Exam: Dressings and packing removed. Appears dry and no further evidence of necrosis. Will place wound VAC today. Results Laboratory Results: 05/03/17 03:48 05/03/17 03:48 05/03/17 05/03/17 03:48 03:48 WBC 11.0 H RBC 3.60 L Hgb 10.7 L Hct 32.4 L MCV 90 MCH 29.8 MCHC 33.1 RDW 13.1 Plt Count 220 Seg Neutrophils % 75.9 Lymphocytes % 10.2 L Monocytes % 11.9 Eosinophils % 1.6 Basophils % 0.4 Absolute Neutrophils 8.4 H Absolute Lymphocytes 1.1 Absolute Monocytes 1.3 Absolute Eosinophils 0.2 Absolute Basophils 0.0 Sodium 136.5 L Potassium 4.1 Chloride 107 Carbon Dioxide 18 L Anion Gap 12 BUN 21 H Creatinine 1.36 H Est GFR ( Amer) > 60 Est GFR (Non-Af Amer) 54 L Glucose 244 H Calcium 7.9 L Impressions: Foot X-Ray 05/01/17 14:36 IMPRESSION: PATIENT WITH PRIOR HEALED 4TH AND 5TH METATARSAL FRACTURES WITH SHAGGY APPEARANCE INVOLVING THE FRACTURE SITES WHICH COULD REPRESENT SEQUELA OF THE PRIOR HEALING OR SUPERIMPOSED OSTEOMYELITIS GIVEN PATIENT'S HISTORY OF ULCERATION. MRI IS FOR FURTHER EVALUATION CLINICALLY INDICATED. Lower Extremity MRI 05/01/17 15:51 IMPRESSION: Ulcer over the base of the 5th metatarsal with bony cortical with erosion and abnormal marrow signal in the proximal 2/3 of the 5th metatarsal compatible with osteomyelitis. Assessment & Plan - Time Time Spent with patient: 15-24 minutes - Inpatient Certification Medical Necessity: Significant Comorbidiites Make Outpatient Treatment Too Risky , Need Close Monitoring Due to Risk of Patient Decompensation, Need For IV Fluids, Need for Pain Control, Need for IV Antibiotics, Risk of Diagnosis Which Will Require Inpatient Eval/Care/Monitoring - Plan Summary Plan Summary: Will place wound VA today
--- NOTE | 2017-05-03 10:38 | PDOC PROGRESS REPORT ---
Subjective Progress Note for:: 05/03/17 Subjective:: Complains of pain in his right foot. He is status post resection of the right fifth metatarsal. Physical Exam Vital Signs: Temp Pulse Resp BP Pulse Ox 98.7 F 68 20 132/60 H 95 05/03/17 08:00 05/03/17 08:00 05/03/17 08:00 05/03/17 08:00 05/03/17 08:00 Intake & Output 05/02/17 05/03/17 05/04/17 06:59 06:59 06:59 Intake Total 150 7760 Output Total 0 6100 Balance 150 1660 Weight 75 kg 80 kg General appearance: PRESENT: no acute distress Eye exam: PRESENT: conjunctiva pink. ABSENT: scleral icterus Ear exam: PRESENT: normal external ear exam Mouth exam: PRESENT: moist, tongue midline Neck exam: ABSENT: JVD Respiratory exam: PRESENT: clear to auscultation manuel. ABSENT: rales, rhonchi, wheezes Cardiovascular exam: PRESENT: RRR. ABSENT: diastolic murmur, rubs, systolic murmur GI/Abdominal exam: PRESENT: normal bowel sounds, soft. ABSENT: distended, guarding, mass, organolmegaly, rebound, tenderness Extremities exam: ABSENT: calf tenderness, clubbing, pedal edema Neurological exam: PRESENT: alert, awake, oriented to person, oriented to place , oriented to time, oriented to situation, CN II-XII grossly intact. ABSENT: motor sensory deficit Psychiatric exam: PRESENT: appropriate affect Skin exam: PRESENT: dry, warm, other - Dressing in place on the right foot.. ABSENT: cyanosis, rash Results Laboratory Results: 05/03/17 03:48 05/03/17 03:48 05/03/17 05/03/17 03:48 03:48 WBC 11.0 H RBC 3.60 L Hgb 10.7 L Hct 32.4 L MCV 90 MCH 29.8 MCHC 33.1 RDW 13.1 Plt Count 220 Seg Neutrophils % 75.9 Lymphocytes % 10.2 L Monocytes % 11.9 Eosinophils % 1.6 Basophils % 0.4 Absolute Neutrophils 8.4 H Absolute Lymphocytes 1.1 Absolute Monocytes 1.3 Absolute Eosinophils 0.2 Absolute Basophils 0.0 Sodium 136.5 L Potassium 4.1 Chloride 107 Carbon Dioxide 18 L Anion Gap 12 BUN 21 H Creatinine 1.36 H Est GFR ( Amer) > 60 Est GFR (Non-Af Amer) 54 L Glucose 244 H Calcium 7.9 L Impressions: Foot X-Ray 05/01/17 14:36 IMPRESSION: PATIENT WITH PRIOR HEALED 4TH AND 5TH METATARSAL FRACTURES WITH SHAGGY APPEARANCE INVOLVING THE FRACTURE SITES WHICH COULD REPRESENT SEQUELA OF THE PRIOR HEALING OR SUPERIMPOSED OSTEOMYELITIS GIVEN PATIENT'S HISTORY OF ULCERATION. MRI IS FOR FURTHER EVALUATION CLINICALLY INDICATED. Lower Extremity MRI 05/01/17 15:51 IMPRESSION: Ulcer over the base of the 5th metatarsal with bony cortical with erosion and abnormal marrow signal in the proximal 2/3 of the 5th metatarsal compatible with osteomyelitis. Assessment & Plan - Diagnosis (1) Diabetic foot infection Is this a current diagnosis for this admission?: Yes Plan: Patient had an MRI that shows osteomyelitis. General surgery performed removal of the right fifth metatarsal yesterday. We will continue with antibiotics and wound VAC placement when appropriate. (2) Hypertension Is this a current diagnosis for this admission?: Yes Plan: Blood pressure is improved on Norvasc. (3) Uncontrolled type 2 diabetes mellitus Qualifiers: Qualified Code(s): E11.8 - Type 2 diabetes mellitus with unspecified complications; E11.65 - Type 2 diabetes mellitus with hyperglycemia; E11.65 - Type 2 diabetes mellitus with hyperglycemia; E11.65 - Type 2 diabetes mellitus with hyperglycemia; E11.65 - Type 2 diabetes mellitus with hyperglycemia Is this a current diagnosis for this admission?: Yes Plan: Will increase the Lantus and continue sliding scale insulin. (4) Hyperlipidemia Is this a current diagnosis for this admission?: Yes - Time Time Spent with patient: 25-34 minutes - Inpatient Certification Medical Necessity: Need for Pain Control, Need for IV Antibiotics
[2017-05-03] MEDS: NORMAL SALINE 1000 ML 1,000 ML IV PRN (15:05)
[2017-05-03] MEDS ORDERED: DOCUSATE SODIUM 100 MG CAPSULE PO ONE (19:46)
[2017-05-04] MEDS: OXYCODONE-ACETAMINOPHEN 5-325 MG TABLET PO PRN ×6 (00:10→23:53)
--- NOTE | 2017-05-04 00:53 | OPERATIVE REPORT E ---
Operative Report NAME: LEEANNE WYLIE : 1960 AGE: 56Y DATE OF SURGERY: 05/03/2017 ROOM: 401 PROCEDURE PERFORMED: Placement of wound VAC to the right foot. SURGEON: KWAME LEONARDO M.D. INDICATION: Patient had debridement and amputation of the right fifth metatarsal and fifth metatarsal bone for osteomyelitis and abscess done 05/02/2017. The wound looks clean, and therefore appropriate for placement of wound VAC. DESCRIPTION OF PROCEDURE: Measurement of the wound was noted to be about 11 cm long x about 5 cm wide and about 3 cm deep. A piece of sponge was then cut on all the proportions of the wound. The transpire dressing was then placed over the sponge and a hole made in the middle. The suction catheter placed over the hole and connected to the wound VAC. The wound VAC was set at -125 mmHg pressure. The wound VAC showed minimal amount of leak. It was noted to have good suction however on the foam over the wound. Patient tolerated the procedure well. DICTATING PHYSICIAN: KWAME LEONARDO M.D. [id number] PHY#: [id number] ID: [id number] JOB#: [id number] ACCT: [id number] cc:KWAME LEONARDO M.D. >
[2017-05-04] MEDS: PIPERACILLIN SODIUM/TAZOBACTAM 3.375 GM in NORMAL SALINE 100 ML IV SCH ×3 (05:19→17:02)
[2017-05-04 05:27] LABS: ABSOLUTE EOSINOPHILS # (AUTO) 0.2 10^3/uL (0.0-0.6); ABSOLUTE LYMPHOCYTES (AUTO) 1.1 10^3/uL (0.5-4.7); ABSOLUTE MONOCYTES (AUTO) 1.1 10^3/uL (0.1-1.4); BASOPHILS % (AUTO) 0.4 % (0-2); HEMATOCRIT 32.2 % (37.9-51.0); HEMOGLOBIN 10.8 g/dL (13.5-17.0); LYMPHOCYTES % (AUTO) 11.2 % (13-45); MEAN CORPUSCULAR HEMOGLOBIN 29.6 pg (27.0-33.4); MEAN CORPUSCULAR HGB CONC 33.5 g/dL (32.0-36.0); MEAN CORPUSCULAR VOLUME 89 fl (80-97); MONOCYTES % (AUTO) 12.2 % (3-13); PLATELET COUNT 230 10^3/uL (150-450); RED BLOOD COUNT 3.63 10^6/uL (4.35-5.55); RED CELL DISTRIBUTION WIDTH 13.5 % (11.5-14.0); SEGMENTED NEUTROPHILS % (AUTO) 74.2 % (42-78); TOTAL CELLS COUNTED % (AUTO) 100 %; WHITE BLOOD COUNT 9.4 10^3/uL (4.0-10.5)
[2017-05-04 05:50] LABS: ANION GAP 10 (5-19); BLOOD UREA NITROGEN 16 mg/dL (7-20); CARBON DIOXIDE 20 mmol/L (22-30); CHLORIDE 111 mmol/L (98-107); GLUCOSE 56 mg/dL (75-110); POTASSIUM 3.8 mmol/L (3.6-5.0); SODIUM 141.3 mmol/L (137-145)
--- NOTE | 2017-05-04 09:04 | PDOC PROGRESS REPORT ---
Subjective Progress Note for:: 05/04/17 Subjective:: No complaints; patient has not had a showering days Physical Exam Vital Signs: Temp Pulse Resp BP Pulse Ox 99.2 F 71 19 150/75 H 98 05/04/17 07:20 05/04/17 07:20 05/04/17 07:20 05/04/17 07:20 05/04/17 07:20 Intake & Output 05/03/17 05/04/17 05/05/17 06:59 06:59 06:59 Intake Total 7760 4240 Output Total 6100 600 Balance 1660 3640 Weight 80 kg 81.3 kg Musculoskeletal exam: PRESENT: other - VAC secured to the lateral aspect of right foot. Results Laboratory Results: 05/04/17 04:35 05/04/17 04:35 05/04/17 05/04/17 04:35 04:35 WBC 9.4 RBC 3.63 L Hgb 10.8 L Hct 32.2 L MCV 89 MCH 29.6 MCHC 33.5 RDW 13.5 Plt Count 230 Seg Neutrophils % 74.2 Lymphocytes % 11.2 L Monocytes % 12.2 Eosinophils % 2.0 Basophils % 0.4 Absolute Neutrophils 7.0 Absolute Lymphocytes 1.1 Absolute Monocytes 1.1 Absolute Eosinophils 0.2 Absolute Basophils 0.0 Sodium 141.3 Potassium 3.8 Chloride 111 H Carbon Dioxide 20 L Anion Gap 10 BUN 16 Creatinine 1.18 Est GFR ( Amer) > 60 Est GFR (Non-Af Amer) > 60 Glucose 56 L Calcium 8.0 L 05/02/17 10:49 Foot - Right Gram Stain - Final Impressions: Foot X-Ray 05/01/17 14:36 IMPRESSION: PATIENT WITH PRIOR HEALED 4TH AND 5TH METATARSAL FRACTURES WITH SHAGGY APPEARANCE INVOLVING THE FRACTURE SITES WHICH COULD REPRESENT SEQUELA OF THE PRIOR HEALING OR SUPERIMPOSED OSTEOMYELITIS GIVEN PATIENT'S HISTORY OF ULCERATION. MRI IS FOR FURTHER EVALUATION CLINICALLY INDICATED. Lower Extremity MRI 05/01/17 15:51 IMPRESSION: Ulcer over the base of the 5th metatarsal with bony cortical with erosion and abnormal marrow signal in the proximal 2/3 of the 5th metatarsal compatible with osteomyelitis. Assessment & Plan - Diagnosis (1) Diabetic foot infection Is this a current diagnosis for this admission?: Yes Plan: Recent is now 2 days status post right fifth ray amputation, open wound, polymicrobial infection with VAC in place. Patient is on empiric therapy with IV Zosyn; is growing gram-positive cocci and gram-negative rods; sensitivities pending plan: 1. Continue VAC therapy 2. Plan to remove VAC sponge and replace; 3. Getting antimicrobial sensitivities, and clinical appearance of foot, will need to determine route and duration of antibiotic therapy on an outpatient basis.
[2017-05-04] MEDS ORDERED: LANSOPRAZOLE 30 MG TAB.RAP.DR PO ONE (09:15)
[2017-05-04] MEDS ORDERED: BISACODYL 10 MG SUPP.RECT PR ONE (09:15)
[2017-05-04] MEDS: IPRATROPIUM/ALBUTEROL 0.5-2.5 MG/3 ML AMPUL NEB PRN ×2 (09:25→16:19)
[2017-05-04] MEDS: FAMOTIDINE 20 MG TABLET PO SCH ×2 (10:09→21:25)
[2017-05-04] MEDS: DOCUSATE SODIUM 100 MG CAPSULE PO SCH (10:09)
[2017-05-04] MEDS: AMLODIPINE BESYLATE 10 MG TABLET PO SCH (10:16)
--- NOTE | 2017-05-04 11:07 | PDOC PROGRESS REPORT ---
Subjective Progress Note for:: 05/04/17 Subjective:: Patient complains of acid reflux symptoms. Physical Exam Vital Signs: Temp Pulse Resp BP Pulse Ox 99.2 F 78 18 150/75 H 95 05/04/17 07:20 05/04/17 09:25 05/04/17 09:25 05/04/17 07:20 05/04/17 09:25 Intake & Output 05/03/17 05/04/17 05/05/17 06:59 06:59 06:59 Intake Total 7760 4240 Output Total 6100 600 Balance 1660 3640 Weight 80 kg 81.3 kg General appearance: PRESENT: no acute distress Eye exam: PRESENT: conjunctiva pink. ABSENT: scleral icterus Mouth exam: PRESENT: moist, tongue midline Neck exam: ABSENT: JVD Respiratory exam: PRESENT: clear to auscultation manuel. ABSENT: rales, rhonchi, wheezes Cardiovascular exam: PRESENT: RRR. ABSENT: diastolic murmur, rubs, systolic murmur GI/Abdominal exam: PRESENT: normal bowel sounds, soft. ABSENT: distended, guarding, mass, organolmegaly, rebound, tenderness Extremities exam: PRESENT: other - Dressing in place on the right foot. Neurological exam: PRESENT: alert, awake, oriented to person, oriented to place , oriented to time, oriented to situation, CN II-XII grossly intact. ABSENT: motor sensory deficit Psychiatric exam: PRESENT: appropriate affect Skin exam: PRESENT: other - Dressing in place on the right foot. Results Laboratory Results: 05/04/17 04:35 05/04/17 04:35 05/04/17 05/04/17 04:35 04:35 WBC 9.4 RBC 3.63 L Hgb 10.8 L Hct 32.2 L MCV 89 MCH 29.6 MCHC 33.5 RDW 13.5 Plt Count 230 Seg Neutrophils % 74.2 Lymphocytes % 11.2 L Monocytes % 12.2 Eosinophils % 2.0 Basophils % 0.4 Absolute Neutrophils 7.0 Absolute Lymphocytes 1.1 Absolute Monocytes 1.1 Absolute Eosinophils 0.2 Absolute Basophils 0.0 Sodium 141.3 Potassium 3.8 Chloride 111 H Carbon Dioxide 20 L Anion Gap 10 BUN 16 Creatinine 1.18 Est GFR ( Amer) > 60 Est GFR (Non-Af Amer) > 60 Glucose 56 L Calcium 8.0 L 05/02/17 10:49 Foot - Right Gram Stain - Final 05/02/17 10:49 Foot - Right Wound Culture - Final Group B Beta Streptococcus Corynebacterium Species No Anaerobic Organisms 05/02/17 10:30 Foot - Right Gram Stain - Final Impressions: Foot X-Ray 05/01/17 14:36 IMPRESSION: PATIENT WITH PRIOR HEALED 4TH AND 5TH METATARSAL FRACTURES WITH SHAGGY APPEARANCE INVOLVING THE FRACTURE SITES WHICH COULD REPRESENT SEQUELA OF THE PRIOR HEALING OR SUPERIMPOSED OSTEOMYELITIS GIVEN PATIENT'S HISTORY OF ULCERATION. MRI IS FOR FURTHER EVALUATION CLINICALLY INDICATED. Lower Extremity MRI 05/01/17 15:51 IMPRESSION: Ulcer over the base of the 5th metatarsal with bony cortical with erosion and abnormal marrow signal in the proximal 2/3 of the 5th metatarsal compatible with osteomyelitis. Assessment & Plan - Diagnosis (1) Diabetic foot infection Is this a current diagnosis for this admission?: Yes Plan: Patient had an MRI that shows osteomyelitis. General surgery performed removal of the right fifth metatarsal ray. We will continue with antibiotics and wound VAC placement when appropriate. Patient is currently on Zosyn. Patient has polymicrobial bacterial growth from cultures. (2) Hypertension Is this a current diagnosis for this admission?: Yes Plan: Blood pressure is improved on Norvasc. (3) Uncontrolled type 2 diabetes mellitus Qualifiers: Diabetes mellitus complication status: with unspecified complications Diabetes mellitus rat exterminator insulin use: without residential use Qualified Code( s): E11.8 - Type 2 diabetes mellitus with unspecified complications; E11.65 - Type 2 diabetes mellitus with hyperglycemia; E11.65 - Type 2 diabetes mellitus with hyperglycemia; E11.65 - Type 2 diabetes mellitus with hyperglycemia; E11.65 - Type 2 diabetes mellitus with hyperglycemia Is this a current diagnosis for this admission?: Yes Plan: Will continue the Lantus and continue sliding scale insulin. (4) Hyperlipidemia Is this a current diagnosis for this admission?: Yes - Time Time Spent with patient: 25-34 minutes - Inpatient Certification Medical Necessity: Need for IV Antibiotics
[2017-05-04] MEDS: INSULIN LISPRO 100 UNIT/ML 3 ML VIAL SUBCUT PRN ×3 (11:38→21:25)
[2017-05-04] MEDS ORDERED: INSULIN GLARGINE,HUM.REC.ANLOG 300 UNIT/3 ML INSULN.PEN SUBCUT ONE (12:00)
[2017-05-04] MEDS: LANSOPRAZOLE 30 MG TAB.RAP.DR PO SCH (16:30)
[2017-05-04] MEDS ORDERED: ENOXAPARIN SODIUM INJ 40 MG/0.4 ML DISP.SYRIN SUBCUT ONE (20:00)
[2017-05-04] MEDS: INSULIN GLARGINE,HUM.REC.ANLOG 300 UNIT/3 ML INSULN.PEN SUBCUT SCH (21:25)
[2017-05-04] MEDS: KETOROLAC TROMETHAMINE INJ/PF 30 MG/1 ML SDV IV SCH (21:26)
[2017-05-05] MEDS: PIPERACILLIN SODIUM/TAZOBACTAM 3.375 GM in NORMAL SALINE 100 ML IV SCH ×5 (01:14→23:47)
[2017-05-05] MEDS: OXYCODONE-ACETAMINOPHEN 5-325 MG TABLET PO PRN ×4 (03:34→20:33)
[2017-05-05] MEDS: KETOROLAC TROMETHAMINE INJ/PF 30 MG/1 ML SDV IV SCH ×3 (05:09→22:19)
[2017-05-05] MEDS: LANSOPRAZOLE 30 MG TAB.RAP.DR PO SCH ×2 (05:09→16:24)
[2017-05-05 05:25] LABS: ABSOLUTE BASOPHILS # (AUTO) 0.1 10^3/uL (0.0-0.2); ABSOLUTE EOSINOPHILS # (AUTO) 0.2 10^3/uL (0.0-0.6); ABSOLUTE LYMPHOCYTES (AUTO) 1.1 10^3/uL (0.5-4.7); ABSOLUTE MONOCYTES (AUTO) 1.1 10^3/uL (0.1-1.4); ABSOLUTE NEUT (AUTO) 6.1 10^3/uL (1.7-8.2); BASOPHILS % (AUTO) 0.6 % (0-2); EOSINOPHILS % (AUTO) 2.6 % (0-6); HEMATOCRIT 31.6 % (37.9-51.0); HEMOGLOBIN 10.7 g/dL (13.5-17.0); LYMPHOCYTES % (AUTO) 12.6 % (13-45); MEAN CORPUSCULAR HGB CONC 33.8 g/dL (32.0-36.0); MEAN CORPUSCULAR VOLUME 89 fl (80-97); MONOCYTES % (AUTO) 13.2 % (3-13); PLATELET COUNT 237 10^3/uL (150-450); RED BLOOD COUNT 3.57 10^6/uL (4.35-5.55); RED CELL DISTRIBUTION WIDTH 13.5 % (11.5-14.0); TOTAL CELLS COUNTED % (AUTO) 100 %; WHITE BLOOD COUNT 8.6 10^3/uL (4.0-10.5)
[2017-05-05 06:03] LABS: ANION GAP 12 (5-19); BLOOD UREA NITROGEN 14 mg/dL (7-20); CALCIUM 7.9 mg/dL (8.4-10.2); CARBON DIOXIDE 19 mmol/L (22-30); CHLORIDE 110 mmol/L (98-107); GLUCOSE 181 mg/dL (75-110); POTASSIUM 4.1 mmol/L (3.6-5.0); SODIUM 141.4 mmol/L (137-145)
[2017-05-05] MEDS: INSULIN LISPRO 100 UNIT/ML 3 ML VIAL SUBCUT PRN ×4 (07:56→22:19)
[2017-05-05] MEDS ORDERED: HYDROMORPHONE HCL INJ/PF 2 MG/ML AMPULE IM ONE (09:00)
[2017-05-05] MEDS: FAMOTIDINE 20 MG TABLET PO SCH ×2 (09:17→22:19)
[2017-05-05] MEDS: DOCUSATE SODIUM 100 MG CAPSULE PO SCH (09:17)
[2017-05-05] MEDS: AMLODIPINE BESYLATE 10 MG TABLET PO SCH (09:17)
[2017-05-05] MEDS: ENOXAPARIN SODIUM INJ 40 MG/0.4 ML DISP.SYRIN SUBCUT SCH (09:21)
[2017-05-05] MEDS: INSULIN GLARGINE,HUM.REC.ANLOG 300 UNIT/3 ML INSULN.PEN SUBCUT SCH ×2 (09:23→22:19)
--- NOTE | 2017-05-05 10:32 | PDOC PROGRESS REPORT ---
Subjective Progress Note for:: 05/05/17 Subjective:: This is a follow-up visit for diabetic foot ulcer. Patient is status post amputation with wound VAC that has been removed. Patient has just received some pain medication prior to removal of the wound VAC. He has no particular complaints today. He wants to take a shower and the surgery service has given him permission to do so. Patient is agreeable for placement because of the back. Apparently he lost his IV overnight and the plans are for him to receive a PICC, as per the surgical service. Physical Exam Vital Signs: Temp Pulse Resp BP Pulse Ox 99.1 F 76 20 174/77 H 97 05/05/17 07:25 05/05/17 08:48 05/05/17 08:48 05/05/17 07:25 05/05/17 08:48 Intake & Output 05/04/17 05/05/17 05/06/17 06:59 06:59 06:59 Intake Total 4240 5490 Output Total 600 2125 Balance 3640 3365 Weight 81.3 kg 85.8 kg GENERAL: This is a well-developed and nourished appearing -[place] male resting in bed currently in no acute distress. HEART: Regular rate and rhythm. No murmurs, rubs or gallops. LUNGS: Clear to auscultation bilaterally with equal rise and fall of the chest. ABDOMEN: Soft, nontender, nondistended with normoactive bowel sounds EXTREMETIES: No clubbing, cyanosis or edema. 2+ peripheral pulses bilaterally. Patient has had 1/5 digit amputation on the right. The wound is large and gaping extending down the lateral side of the foot. It is red and beefy and losing some blood. I see very little slough and debris. However, granulation tissue is minimal as well. NEURO: Awake, alert and oriented 3. Cranial nerves II through XII are grossly intact. Results Laboratory Results: 05/05/17 04:17 05/05/17 04:17 05/05/17 05/05/17 04:17 04:17 WBC 8.6 RBC 3.57 L Hgb 10.7 L Hct 31.6 L MCV 89 MCH 30.0 MCHC 33.8 RDW 13.5 Plt Count 237 Seg Neutrophils % 71.0 Lymphocytes % 12.6 L Monocytes % 13.2 H Eosinophils % 2.6 Basophils % 0.6 Absolute Neutrophils 6.1 Absolute Lymphocytes 1.1 Absolute Monocytes 1.1 Absolute Eosinophils 0.2 Absolute Basophils 0.1 Sodium 141.4 Potassium 4.1 Chloride 110 H Carbon Dioxide 19 L Anion Gap 12 BUN 14 Creatinine 1.45 H Est GFR ( Amer) > 60 Est GFR (Non-Af Amer) 50 L Glucose 181 H Calcium 7.9 L 05/02/17 10:30 Foot - Right Gram Stain - Final 05/02/17 10:49 Foot - Right Gram Stain - Final 05/02/17 10:49 Foot - Right Wound Culture - Final Group B Beta Streptococcus Corynebacterium Species No Anaerobic Organisms Impressions: Foot X-Ray 05/01/17 14:36 IMPRESSION: PATIENT WITH PRIOR HEALED 4TH AND 5TH METATARSAL FRACTURES WITH SHAGGY APPEARANCE INVOLVING THE FRACTURE SITES WHICH COULD REPRESENT SEQUELA OF THE PRIOR HEALING OR SUPERIMPOSED OSTEOMYELITIS GIVEN PATIENT'S HISTORY OF ULCERATION. MRI IS FOR FURTHER EVALUATION CLINICALLY INDICATED. Lower Extremity MRI 05/01/17 15:51 IMPRESSION: Ulcer over the base of the 5th metatarsal with bony cortical with erosion and abnormal marrow signal in the proximal 2/3 of the 5th metatarsal compatible with osteomyelitis. 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 Wound VAC has been removed to allow patient to shower. Plans are to have it replaced. Continue antibiotics for now. Cultures and susceptibilities have been reviewed and Rocephin has been added on to the patient's regimen. Zosyn still remains as there is one gram-negative yoandy that is outstanding. Plan eventually will be to go down to Rocephin alone. Depending on final susceptibilities patient may be able to be changed to oral antibiotics at some point in his long-term treatment. (2) Hyperlipidemia Is this a current diagnosis for this admission?: Yes (3) Hypertension Is this a current diagnosis for this admission?: Yes Plan: Continue Norvasc. (4) Uncontrolled type 2 diabetes mellitus Qualifiers: Diabetes mellitus complication status: with unspecified complications Diabetes mellitus termite control technician insulin use: without termite control technician use Qualified Code( s): E11.8 - Type 2 diabetes mellitus with unspecified complications; E11.65 - Type 2 diabetes mellitus with hyperglycemia; E11.65 - Type 2 diabetes mellitus with hyperglycemia; E11.65 - Type 2 diabetes mellitus with hyperglycemia; E11.65 - Type 2 diabetes mellitus with hyperglycemia Is this a current diagnosis for this admission?: Yes Plan: Continue Lantus 20 units every 12 and sliding scale insulin. Blood sugars are better than what they were previous to today. Continue to monitor. Continue hypoglycemic protocol. (5) Acute renal failure Plan: Encourage p.o. Fluids. Continue to monitor (6) Acute pain Plan: Patient has acute pain after his amputation. As needed pain medications as ordered. - Time Time Spent with patient: 15-24 minutes - Inpatient Certification Medical Necessity: Need Close Monitoring Due to Risk of Patient Decompensation
[2017-05-05] MEDS: CEFTRIAXONE 2 GM/D5W RTU 2 GM/50 ML RTUPB IV SCH (13:18)
--- NOTE | 2017-05-05 13:22 | RADIOLOGY REPORT (SQ) ---
EXAM DESCRIPTION: PICC INSERTION COMPLETED DATE/TIME: 05/05/2017 1:02 pm REASON FOR STUDY: patient preference COMPARISON: None. FLUOROSCOPY TIME: 5 seconds 2 images saved to PACS. TECHNIQUE: Fluoroscopic and ultrasound guided PICC placement. LIMITATIONS: None. PROCEDURE: After written consent and assessment were obtained, the patient was brought into the [facility] roscopy room and place supine on the table. Ultrasound was used on the patient's left arm for PICC a ccess. The left arm was prepped and draped in a sterile fashion along with the ultrasound probe. The entry site was anesthetized with 1% lidocaine. A 21 gauge 7 cm needle was advanced through the skin a nd into the basilic vein under live ultrasound guidance. An ultrasound image was saved to PACS confi rming access site. A .018 guide wire was then inserted through the needle and into the venous system . The needle was the removed and an 11 blade scalpel was used to make a 1cm skin incision. A 5 fr pe el-away sheath was advanced over the wire and into the venous system. A measurement was then made usi ng the existing wire and live fluoroscopic guidance. The wire was then removed and the trimmed. The P ICC was advanced through the peel-away sheath and into the venous system. The peel-away sheath was re moved and the catheter was adhered to the patients arm with a stat lock. The catheter was then aspira kiera and flushed and a sterile bandage was placed over the access site. A fluoroscopic spot image was saved to PACS confirming the catheter tip within the superior vena cava. IMPRESSION: SUCCESSFUL PLACEMENT OF A 5 FR dual LUMEN 39 CM PICC IN THE basilic VEIN. COMMENT: Patient medication list reviewed: Yes. Quality ID [id number]: Final reports for procedures using fluoroscopy that document radiation exposure han loi, or exposure time and number of fluorographic images (if radiation exposure indices are not avail able) Quality ID #[id number]: The patient was prepped and draped using maximum sterile barrier technique including cap, mask, sterile gown, sterile gloves, a large sterile sheet, hand hygiene, and 2% Chlorhexidine fo r cutaneous antisepsis. When ultrasound is used, sterile ultrasound techniques are followed requiring sterile gel and sterile probes. TECHNICAL DOCUMENTATION: JOB ID: [id number] [employer]- All Rights Reserved
--- NOTE | 2017-05-05 13:23 | RADIOLOGY REPORT (SQ) ---
EXAM DESCRIPTION: FLUORO/CV PLACEMENT COMPLETE DATE/TIME: 05/05/2017 1:02 pm REASON FOR STUDY: IV ACCESSS FINDINGS: Please see combined report for performance of procedure and radiologic supervision and int erpretation. IMPRESSION: Please see combined report for performance of procedure and radiologic supervision and i nterpretation.
--- NOTE | 2017-05-05 13:23 | RADIOLOGY REPORT (SQ) ---
EXAM DESCRIPTION: U/S GUIDE FOR VASCULAR ACCESS COMPLETE DATE/TIME: 05/05/2017 1:02 pm REASON FOR STUDY: IV ACCESS FINDINGS: Please see combined report for performance of procedure and radiologic supervision and int erpretation. IMPRESSION: Please see combined report for performance of procedure and radiologic supervision and i nterpretation.
[2017-05-05] MEDS: NORMAL SALINE 10 ML SDV (SCHEDULED) IV SCH (22:19)
[2017-05-06] MEDS: OXYCODONE-ACETAMINOPHEN 5-325 MG TABLET PO PRN ×2 (03:08→18:56)
[2017-05-06] MEDS: PIPERACILLIN SODIUM/TAZOBACTAM 3.375 GM in NORMAL SALINE 100 ML IV SCH ×2 (05:24→12:34)
[2017-05-06] MEDS: KETOROLAC TROMETHAMINE INJ/PF 30 MG/1 ML SDV IV SCH ×3 (05:24→22:26)
[2017-05-06] MEDS: LANSOPRAZOLE 30 MG TAB.RAP.DR PO SCH ×2 (05:24→17:03)
[2017-05-06] MEDS: IPRATROPIUM/ALBUTEROL 0.5-2.5 MG/3 ML AMPUL NEB PRN (08:28)
[2017-05-06] MEDS: NORMAL SALINE 10 ML SDV (SCHEDULED) IV SCH ×2 (10:18→22:27)
[2017-05-06] MEDS: CEFTRIAXONE 2 GM/D5W RTU 2 GM/50 ML RTUPB IV SCH (10:20)
[2017-05-06] MEDS: AMLODIPINE BESYLATE 10 MG TABLET PO SCH (10:20)
[2017-05-06] MEDS: FAMOTIDINE 20 MG TABLET PO SCH ×2 (10:21→22:26)
[2017-05-06] MEDS: DOCUSATE SODIUM 100 MG CAPSULE PO SCH (10:21)
[2017-05-06] MEDS: INSULIN GLARGINE,HUM.REC.ANLOG 300 UNIT/3 ML INSULN.PEN SUBCUT SCH ×2 (10:28→22:26)
[2017-05-06] MEDS: ENOXAPARIN SODIUM INJ 40 MG/0.4 ML DISP.SYRIN SUBCUT SCH (10:29)
[2017-05-06] MEDS: MORPHINE SULFATE 10 MG/ML INJ IV PRN ×3 (10:39→20:42)
--- NOTE | 2017-05-06 10:45 | PDOC PROGRESS REPORT ---
Subjective Progress Note for:: 05/06/17 Subjective:: This is a follow-up visit for diabetic foot ulcer. Patient is status post amputation with wound VAC. He tells me that he is very angry today. He does not know what he is going to do when it is time for him to leave the hospital. He states that it just hit him that he has lost half of his foot. He states that he has 5 nieces. His eldest niece is the person that he wishes to be in charge of his medical decision-making should he become incapacitated. He is not comfortable with relying on his nieces for anything. He states that he was sleeping and a graveyard prior to being admitted here and that he will return to doing this before he bothers his family. Physical Exam Vital Signs: Temp Pulse Resp BP Pulse Ox 97.6 F 74 16 196/80 H 93 05/06/17 07:26 05/06/17 08:28 05/06/17 08:28 05/06/17 07:26 05/06/17 08:28 Intake & Output 05/05/17 05/06/17 05/07/17 06:59 06:59 06:59 Intake Total 5490 3566 Output Total 2125 1500 Balance 3365 2066 Weight 85.8 kg 85.8 kg GENERAL: This is a well-developed and nourished appearing -[place] male resting in bed currently in no acute distress, but angry. The patient vented several concerns. HEART: Regular rate and rhythm. No murmurs, rubs or gallops. LUNGS: Clear to auscultation bilaterally with equal rise and fall of the chest. ABDOMEN: Soft, nontender, nondistended with normoactive bowel sounds EXTREMETIES: No clubbing, cyanosis or edema. 2+ peripheral pulses bilaterally. Wound VAC on the right foot is in place. NEURO: Awake, alert and oriented 3. Cranial nerves II through XII are grossly intact. Results Laboratory Results: 05/05/17 04:17 05/05/17 04:17 05/02/17 10:30 Foot - Right Gram Stain - Final Impressions: Foot X-Ray 05/01/17 14:36 IMPRESSION: PATIENT WITH PRIOR HEALED 4TH AND 5TH METATARSAL FRACTURES WITH SHAGGY APPEARANCE INVOLVING THE FRACTURE SITES WHICH COULD REPRESENT SEQUELA OF THE PRIOR HEALING OR SUPERIMPOSED OSTEOMYELITIS GIVEN PATIENT'S HISTORY OF ULCERATION. MRI IS FOR FURTHER EVALUATION CLINICALLY INDICATED. Lower Extremity MRI 05/01/17 15:51 IMPRESSION: Ulcer over the base of the 5th metatarsal with bony cortical with erosion and abnormal marrow signal in the proximal 2/3 of the 5th metatarsal compatible with osteomyelitis. Guidance Fluoroscopy 05/05/17 00:00 IMPRESSION: Please see combined report for performance of procedure and radiologic supervision and interpretation. Interventional Vascular Procedure 05/05/17 00:00 IMPRESSION: Please see combined report for performance of procedure and radiologic supervision and interpretation. PICC Line Insertion 05/05/17 00:00 IMPRESSION: SUCCESSFUL PLACEMENT OF A 5 FR dual LUMEN 39 CM PICC IN THE basilic VEIN. 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 Wound VAC is in place. All cultures have come back. And the patient eventually can be converted to p.o. medicine. Levaquin and Augmentin will be the most likely choices. For now continue Rocephin and add on Levaquin p.o. (2) Hyperlipidemia Is this a current diagnosis for this admission?: Yes (3) Hypertension Is this a current diagnosis for this admission?: Yes Plan: Continue Norvasc. (4) Uncontrolled type 2 diabetes mellitus Qualifiers: Diabetes mellitus complication status: with unspecified complications Diabetes mellitus terminal carman insulin use: without snf use Qualified Code( s): E11.8 - Type 2 diabetes mellitus with unspecified complications; E11.65 - Type 2 diabetes mellitus with hyperglycemia; E11.65 - Type 2 diabetes mellitus with hyperglycemia; E11.65 - Type 2 diabetes mellitus with hyperglycemia; E11.65 - Type 2 diabetes mellitus with hyperglycemia Is this a current diagnosis for this admission?: Yes Plan: based on the patient's use of sliding scale insulin will increase his Lantus by total of 4 units. (5) Acute renal failure Plan: Encourage p.o. Fluids. Continue to monitor (6) Acute pain Plan: Patient has acute pain after his amputation. As needed pain medications as ordered. - Time Time Spent with patient: 15-24 minutes - Inpatient Certification Medical Necessity: Need Close Monitoring Due to Risk of Patient Decompensation
[2017-05-06] MEDS: NORMAL SALINE 1000 ML 1,000 ML IV PRN (12:30)
[2017-05-06] MEDS: INSULIN LISPRO 100 UNIT/ML 3 ML VIAL SUBCUT PRN (12:35)
[2017-05-06] MEDS: LACTULOSE SYRUP 20 GM/30 ML UDCUP PO PRN (15:32)
--- NOTE | 2017-05-07 00:07 | PDOC PROGRESS REPORT ---
Subjective Progress Note for:: 05/06/17 Subjective:: pains right foot Physical Exam Vital Signs: Temp Pulse Resp BP Pulse Ox 99.0 F 78 20 138/63 H 98 05/06/17 19:37 05/06/17 19:37 05/06/17 19:37 05/06/17 19:37 05/06/17 19:37 Intake & Output 05/05/17 05/06/17 05/07/17 06:59 06:59 06:59 Intake Total 5490 3566 949 Output Total 2125 1500 500 Balance 3365 2066 449 Weight 85.8 kg 85.8 kg Exam: old VAC dressing removed. Noted starting good granulation tissue. A new VAC dressing was applied. Results Laboratory Results: 05/05/17 04:17 05/05/17 04:17 05/02/17 10:30 Foot - Right Gram Stain - Final 05/02/17 10:30 Foot - Right Wound Culture - Final Proteus Vulgaris Enterococcus Faecalis(Group D) Morganella Morganii Group B Beta Streptococcus Corynebacterium Species Prevotella Species Peptostreptococcus Species Impressions: Foot X-Ray 05/01/17 14:36 IMPRESSION: PATIENT WITH PRIOR HEALED 4TH AND 5TH METATARSAL FRACTURES WITH SHAGGY APPEARANCE INVOLVING THE FRACTURE SITES WHICH COULD REPRESENT SEQUELA OF THE PRIOR HEALING OR SUPERIMPOSED OSTEOMYELITIS GIVEN PATIENT'S HISTORY OF ULCERATION. MRI IS FOR FURTHER EVALUATION CLINICALLY INDICATED. Lower Extremity MRI 05/01/17 15:51 IMPRESSION: Ulcer over the base of the 5th metatarsal with bony cortical with erosion and abnormal marrow signal in the proximal 2/3 of the 5th metatarsal compatible with osteomyelitis. Guidance Fluoroscopy 05/05/17 00:00 IMPRESSION: Please see combined report for performance of procedure and radiologic supervision and interpretation. Interventional Vascular Procedure 05/05/17 00:00 IMPRESSION: Please see combined report for performance of procedure and radiologic supervision and interpretation. PICC Line Insertion 05/05/17 00:00 IMPRESSION: SUCCESSFUL PLACEMENT OF A 5 FR dual LUMEN 39 CM PICC IN THE basilic VEIN. Assessment & Plan - Time Time Spent with patient: 35 or more minutes - Inpatient Certification Medical Necessity: Need Close Monitoring Due to Risk of Patient Decompensation, Need for Pain Control, Need for IV Antibiotics - Plan Summary Plan Summary: Continue wound VAC. Keep rt leg elevated while on bed. Continue IV antibiotics. Need discharge planning because pt is homeless. Needs a place to stay to continue with wound VAC tx until wound heals.
[2017-05-07] MEDS: MORPHINE SULFATE 10 MG/ML INJ IV PRN ×4 (00:44→23:39)
[2017-05-07] MEDS: KETOROLAC TROMETHAMINE INJ/PF 30 MG/1 ML SDV IV SCH ×2 (05:18→13:38)
[2017-05-07] MEDS: LANSOPRAZOLE 30 MG TAB.RAP.DR PO SCH ×2 (05:19→17:19)
[2017-05-07] MEDS: NORMAL SALINE 10 ML SDV (AFTER EACH USE) IV PRN (10:32)
[2017-05-07] MEDS: CEFTRIAXONE 2 GM/D5W RTU 2 GM/50 ML RTUPB IV SCH (10:32)
[2017-05-07] MEDS: ENOXAPARIN SODIUM INJ 40 MG/0.4 ML DISP.SYRIN SUBCUT SCH (10:33)
[2017-05-07] MEDS: AMLODIPINE BESYLATE 10 MG TABLET PO SCH (10:33)
[2017-05-07] MEDS: DOCUSATE SODIUM 100 MG CAPSULE PO SCH (10:33)
[2017-05-07] MEDS: LEVOFLOXACIN 500 MG TABLET PO SCH (10:33)
[2017-05-07] MEDS: FAMOTIDINE 20 MG TABLET PO SCH ×2 (10:34→22:12)
[2017-05-07] MEDS: NORMAL SALINE 10 ML SDV (SCHEDULED) IV SCH ×2 (10:35→22:08)
[2017-05-07] MEDS: INSULIN GLARGINE,HUM.REC.ANLOG 300 UNIT/3 ML INSULN.PEN SUBCUT SCH ×2 (10:35→22:07)
[2017-05-07] MEDS: ACETAMINOPHEN 325 MG TABLET PO PRN (10:38)
[2017-05-07 10:40] LABS: ABSOLUTE BASOPHILS # (AUTO) 0.1 10^3/uL (0.0-0.2); ABSOLUTE EOSINOPHILS # (AUTO) 0.3 10^3/uL (0.0-0.6); ABSOLUTE LYMPHOCYTES (AUTO) 1.4 10^3/uL (0.5-4.7); ABSOLUTE MONOCYTES (AUTO) 1.2 10^3/uL (0.1-1.4); ABSOLUTE NEUT (AUTO) 8.4 10^3/uL (1.7-8.2); BASOPHILS % (AUTO) 0.7 % (0-2); EOSINOPHILS % (AUTO) 2.4 % (0-6); HEMATOCRIT 31.3 % (37.9-51.0); HEMOGLOBIN 10.4 g/dL (13.5-17.0); MEAN CORPUSCULAR HEMOGLOBIN 29.6 pg (27.0-33.4); MEAN CORPUSCULAR HGB CONC 33.1 g/dL (32.0-36.0); MEAN CORPUSCULAR VOLUME 89 fl (80-97); MONOCYTES % (AUTO) 10.8 % (3-13); PLATELET COUNT 333 10^3/uL (150-450); RED BLOOD COUNT 3.51 10^6/uL (4.35-5.55); RED CELL DISTRIBUTION WIDTH 13.6 % (11.5-14.0); SEGMENTED NEUTROPHILS % (AUTO) 74.1 % (42-78); TOTAL CELLS COUNTED % (AUTO) 100 %; WHITE BLOOD COUNT 11.4 10^3/uL (4.0-10.5)
[2017-05-07 11:07] LABS: ANION GAP 10 (5-19); BLOOD UREA NITROGEN 21 mg/dL (7-20); CALCIUM 8.7 mg/dL (8.4-10.2); CARBON DIOXIDE 23 mmol/L (22-30); CHLORIDE 108 mmol/L (98-107); GLUCOSE 121 mg/dL (75-110); MAGNESIUM 2.4 mg/dL (1.6-2.3); POTASSIUM 4.7 mmol/L (3.6-5.0); SODIUM 141.2 mmol/L (137-145)
--- NOTE | 2017-05-07 14:37 | PDOC PROGRESS REPORT ---
Subjective Progress Note for:: 05/07/17 Subjective:: This is a follow-up visit for diabetic foot ulcer. Patient is status post amputation with wound VAC. Patient states he feels better now that I am here. He has a lot to tell me. He tells me that he toppled out of his recliner last night and that his tray went flying across the room up against the wall. He said that he remained on the floor for about 20 minutes and that he had depressive button twice to get any assistance back up. He states that he managed to get one leg back in the bed before anyone arrived to help him. He states that the wound VAC got pulled out as a result of all of this. I spoke with the patient's nurse who tells me that there was no fall that occurred last night. She said that the patient was in bed all night and that his recliner was never on the floor toppled over. She also states that the wound VAC did get pulled out but that this happened today when the nursing students were helping him get washed up. Apparently, a geriatric nursing assistant stepped on the patient 's wound VAC cords and accidentally pulled it out. This is subsequently been replaced. Patient also complains to me about being short of breath. At about three fourths of the way through the conversation the patient states that he short of breath and then began breathing quite heavily. Prior to this the patient was speaking in full sentences. I asked him if he thought that he had any component of anxiety or fears or worries causing him to be upset. The patient freely admits that he does feel anxious. He also tells me that he feels that his entire right leg is swollen from the groin all the way down to his foot. Physical Exam Vital Signs: Temp Pulse Resp BP Pulse Ox 98.0 F 67 19 161/74 H 95 05/07/17 11:22 05/07/17 11:22 05/07/17 11:22 05/07/17 11:22 05/07/17 11:22 Intake & Output 05/06/17 05/07/17 05/08/17 06:59 06:59 06:59 Intake Total 3566 1309 Output Total 1500 500 Balance 2066 809 Weight 85.8 kg 87.4 kg GENERAL: This is a well-developed and nourished appearing -[place] male resting in his recliner currently in no acute distress. HEART: Regular rate and rhythm. No murmurs, rubs or gallops. LUNGS: Clear to auscultation bilaterally with equal rise and fall of the chest. Breathing is not labored. Again, towards the end of our interview the patient started huffing and puffing. With further conversation he was able to remain calm and slow his breathing. ABDOMEN: Soft, nontender, nondistended with normoactive bowel sounds EXTREMETIES: No clubbing, cyanosis or edema. 2+ peripheral pulses bilaterally. Wound VAC on the right foot is in place. : The patient feels his scrotum is swollen. As well as his groin. I have examined it I do not see any katrina swelling this high up. NEURO: Awake, alert and oriented 3. Cranial nerves II through XII are grossly intact. Results Laboratory Results: 05/07/17 10:28 05/07/17 10:28 05/07/17 05/07/17 10:28 10:28 WBC 11.4 H RBC 3.51 L Hgb 10.4 L Hct 31.3 L MCV 89 MCH 29.6 MCHC 33.1 RDW 13.6 Plt Count 333 Seg Neutrophils % 74.1 Lymphocytes % 12.0 L Monocytes % 10.8 Eosinophils % 2.4 Basophils % 0.7 Absolute Neutrophils 8.4 H Absolute Lymphocytes 1.4 Absolute Monocytes 1.2 Absolute Eosinophils 0.3 Absolute Basophils 0.1 Sodium 141.2 Potassium 4.7 Chloride 108 H Carbon Dioxide 23 Anion Gap 10 BUN 21 H Creatinine 1.24 Est GFR ( Amer) > 60 Est GFR (Non-Af Amer) > 60 Glucose 121 H Calcium 8.7 Magnesium 2.4 H 05/02/17 10:30 Foot - Right Gram Stain - Final 05/02/17 10:30 Foot - Right Wound Culture - Final Proteus Vulgaris Enterococcus Faecalis(Group D) Morganella Morganii Group B Beta Streptococcus Corynebacterium Species Prevotella Species Peptostreptococcus Species Impressions: Foot X-Ray 05/01/17 14:36 IMPRESSION: PATIENT WITH PRIOR HEALED 4TH AND 5TH METATARSAL FRACTURES WITH SHAGGY APPEARANCE INVOLVING THE FRACTURE SITES WHICH COULD REPRESENT SEQUELA OF THE PRIOR HEALING OR SUPERIMPOSED OSTEOMYELITIS GIVEN PATIENT'S HISTORY OF ULCERATION. MRI IS FOR FURTHER EVALUATION CLINICALLY INDICATED. Lower Extremity MRI 05/01/17 15:51 IMPRESSION: Ulcer over the base of the 5th metatarsal with bony cortical with erosion and abnormal marrow signal in the proximal 2/3 of the 5th metatarsal compatible with osteomyelitis. Guidance Fluoroscopy 05/05/17 00:00 IMPRESSION: Please see combined report for performance of procedure and radiologic supervision and interpretation. Interventional Vascular Procedure 05/05/17 00:00 IMPRESSION: Please see combined report for performance of procedure and radiologic supervision and interpretation. PICC Line Insertion 05/05/17 00:00 IMPRESSION: SUCCESSFUL PLACEMENT OF A 5 FR dual LUMEN 39 CM PICC IN THE basilic VEIN. 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 Wound VAC is in place. All cultures have come back. And the patient eventually can be converted to p.o. medicine. Levaquin and Augmentin will be the most likely choices. For now continue Rocephin and Levaquin p.o. (2) Hyperlipidemia Is this a current diagnosis for this admission?: Yes (3) Hypertension Is this a current diagnosis for this admission?: Yes Plan: Continue Norvasc. (4) Uncontrolled type 2 diabetes mellitus Qualifiers: Diabetes mellitus complication status: with unspecified complications Diabetes mellitus assisted insulin use: without merchandise shopper use Qualified Code( s): E11.8 - Type 2 diabetes mellitus with unspecified complications; E11.65 - Type 2 diabetes mellitus with hyperglycemia; E11.65 - Type 2 diabetes mellitus with hyperglycemia; E11.65 - Type 2 diabetes mellitus with hyperglycemia; E11.65 - Type 2 diabetes mellitus with hyperglycemia Is this a current diagnosis for this admission?: Yes Plan: based on the patient's use of sliding scale insulin will increase his Lantus by total of 4 units. (5) Acute renal failure Plan: Encourage p.o. Fluids. Continue to monitor (6) Acute pain Plan: Patient has acute pain after his amputation. As needed pain medications as ordered by surgery (7) Anxiety Plan: I am going to add Xanax onto this patient's regimen. I do believe that this is the cause of his sensation of shortness of breath. The patient oxygenating well has absolutely clear breath sounds at this time. - Time Time Spent with patient: 25-34 minutes - Inpatient Certification Medical Necessity: Need Close Monitoring Due to Risk of Patient Decompensation
[2017-05-08] MEDS: LANSOPRAZOLE 30 MG TAB.RAP.DR PO SCH ×2 (07:47→16:32)
[2017-05-08] MEDS: ENOXAPARIN SODIUM INJ 40 MG/0.4 ML DISP.SYRIN SUBCUT SCH (09:37)
[2017-05-08] MEDS: MORPHINE SULFATE 10 MG/ML INJ IV PRN ×3 (09:38→20:56)
[2017-05-08] MEDS: FAMOTIDINE 20 MG TABLET PO SCH ×2 (09:45→23:59)
[2017-05-08] MEDS: DOCUSATE SODIUM 100 MG CAPSULE PO SCH (09:45)
[2017-05-08] MEDS: INSULIN GLARGINE,HUM.REC.ANLOG 300 UNIT/3 ML INSULN.PEN SUBCUT SCH (09:45)
[2017-05-08] MEDS: CEFTRIAXONE 2 GM/D5W RTU 2 GM/50 ML RTUPB IV SCH (09:45)
[2017-05-08] MEDS: LEVOFLOXACIN 500 MG TABLET PO SCH (09:45)
[2017-05-08] MEDS: AMLODIPINE BESYLATE 10 MG TABLET PO SCH (09:45)
[2017-05-08] MEDS: ALPRAZOLAM 0.25 MG TABLET PO PRN (09:57)
[2017-05-08] MEDS: NORMAL SALINE 10 ML SDV (SCHEDULED) IV SCH ×2 (10:07→23:59)
--- NOTE | 2017-05-08 14:15 | PDOC PROGRESS REPORT ---
Subjective Progress Note for:: 05/08/17 Subjective:: This is a follow-up visit for diabetic foot ulcer. Patient is status post amputation with wound VAC. Patient has no complaints today. Physical Exam Vital Signs: Temp Pulse Resp BP Pulse Ox 98.0 F 66 14 183/80 H 99 05/08/17 08:00 05/08/17 12:08 05/08/17 12:08 05/08/17 08:00 05/08/17 08:00 Intake & Output 05/07/17 05/08/17 05/09/17 06:59 06:59 06:59 Intake Total 1309 860 Output Total 500 425 Balance 809 435 Weight 87.4 kg GENERAL: This is a well-developed and nourished appearing -[place] male resting in his recliner currently in no acute distress. HEART: Regular rate and rhythm. No murmurs, rubs or gallops. LUNGS: Clear to auscultation bilaterally with equal rise and fall of the chest. ABDOMEN: Soft, nontender, nondistended with normoactive bowel sounds EXTREMETIES: No clubbing, cyanosis. trace edema. Out of the right foot. 2+ peripheral pulses bilaterally. Wound VAC on the right foot is in place. NEURO: Awake, alert and oriented 3. Cranial nerves II through XII are grossly intact. Results Laboratory Results: 05/07/17 10:28 05/07/17 10:28 Impressions: Foot X-Ray 05/01/17 14:36 IMPRESSION: PATIENT WITH PRIOR HEALED 4TH AND 5TH METATARSAL FRACTURES WITH SHAGGY APPEARANCE INVOLVING THE FRACTURE SITES WHICH COULD REPRESENT SEQUELA OF THE PRIOR HEALING OR SUPERIMPOSED OSTEOMYELITIS GIVEN PATIENT'S HISTORY OF ULCERATION. MRI IS FOR FURTHER EVALUATION CLINICALLY INDICATED. Lower Extremity MRI 05/01/17 15:51 IMPRESSION: Ulcer over the base of the 5th metatarsal with bony cortical with erosion and abnormal marrow signal in the proximal 2/3 of the 5th metatarsal compatible with osteomyelitis. Guidance Fluoroscopy 05/05/17 00:00 IMPRESSION: Please see combined report for performance of procedure and radiologic supervision and interpretation. Interventional Vascular Procedure 05/05/17 00:00 IMPRESSION: Please see combined report for performance of procedure and radiologic supervision and interpretation. PICC Line Insertion 05/05/17 00:00 IMPRESSION: SUCCESSFUL PLACEMENT OF A 5 FR dual LUMEN 39 CM PICC IN THE basilic VEIN. 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 Wound VAC is in place. All cultures have come back. And the patient eventually can be converted to p.o. medicine. Levaquin and Augmentin will be the most likely choices. For now continue Rocephin and Levaquin p.o. (2) Hyperlipidemia Is this a current diagnosis for this admission?: Yes (3) Hypertension Is this a current diagnosis for this admission?: Yes Plan: Continue Norvasc. (4) Uncontrolled type 2 diabetes mellitus Qualifiers: Diabetes mellitus complication status: with unspecified complications Diabetes mellitus long-term insulin use: without long-term use Qualified Code( s): E11.8 - Type 2 diabetes mellitus with unspecified complications; E11.65 - Type 2 diabetes mellitus with hyperglycemia; E11.65 - Type 2 diabetes mellitus with hyperglycemia; E11.65 - Type 2 diabetes mellitus with hyperglycemia; E11.65 - Type 2 diabetes mellitus with hyperglycemia Is this a current diagnosis for this admission?: Yes Plan: based on the patient's use of sliding scale insulin will increase his Lantus by total of 4 units. (5) Acute renal failure Plan: Encourage p.o. Fluids. Continue to monitor. Resolved. (6) Acute pain Plan: Patient has acute pain after his amputation. As needed pain medications as ordered by surgery (7) Anxiety Plan: Continue Xanax as needed.
--- NOTE | 2017-05-08 16:10 | XCELERA REPORT ---
[address] [address] Lower Extremity Venous Evaluation Name: LEEANNE WYLIE Age: 56 yrs Gender: Male : 1960 Patient Status: Inpatient Patient Location: [address] [place], [place] [id number] Study Date: 05/08/2017 10:12 AM Procedure: Color flow and duplex imaging of the veins of the right lower extremity as well as the left Common Femoral vein. Reason For Study: swelling of right leg Ordering Physician: NOEMI OLMSTEAD Performed By: Piper Branch Right Sided Venous Evaluation Normal vessel filling wall to wall, compression and augmentation as well as Colour flow down to the infrageniculate veins. Left Sided Venous Evaluation The left common femoral vein is fully compressible. Spontaneous and phasic flow is present in the left common femoral vein. Interpretation Summary No duplex evidence of DVT or obstruction in the right lower extremity nor in the left Common Femoral vein. : NOEMI OLMSTEAD > Chadwick Smith
[2017-05-08] MEDS: NORMAL SALINE 10 ML SDV (AFTER EACH USE) IV PRN (20:56)
[2017-05-09] MEDS: NORMAL SALINE 10 ML SDV (AFTER EACH USE) IV PRN ×2 (02:59→06:21)
[2017-05-09] MEDS: MORPHINE SULFATE 10 MG/ML INJ IV PRN ×3 (03:00→20:00)
[2017-05-09] MEDS: LANSOPRAZOLE 30 MG TAB.RAP.DR PO SCH ×2 (06:21→17:03)
[2017-05-09 06:37] LABS: ABSOLUTE EOSINOPHILS # (AUTO) 0.2 10^3/uL (0.0-0.6); ABSOLUTE LYMPHOCYTES (AUTO) 2.3 10^3/uL (0.5-4.7); ABSOLUTE MONOCYTES (AUTO) 1.4 10^3/uL (0.1-1.4); ABSOLUTE NEUT (AUTO) 6.7 10^3/uL (1.7-8.2); BASOPHILS % (AUTO) 0.5 % (0-2); EOSINOPHILS % (AUTO) 2.1 % (0-6); HEMATOCRIT 30.4 % (37.9-51.0); HEMOGLOBIN 10.2 g/dL (13.5-17.0); LYMPHOCYTES % (AUTO) 21.5 % (13-45); MEAN CORPUSCULAR HEMOGLOBIN 29.7 pg (27.0-33.4); MEAN CORPUSCULAR HGB CONC 33.5 g/dL (32.0-36.0); MEAN CORPUSCULAR VOLUME 89 fl (80-97); PLATELET COUNT 346 10^3/uL (150-450); RED BLOOD COUNT 3.43 10^6/uL (4.35-5.55); RED CELL DISTRIBUTION WIDTH 13.4 % (11.5-14.0); SEGMENTED NEUTROPHILS % (AUTO) 62.9 % (42-78); TOTAL CELLS COUNTED % (AUTO) 100 %; WHITE BLOOD COUNT 10.6 10^3/uL (4.0-10.5)
[2017-05-09 07:04] LABS: ANION GAP 10 (5-19); BLOOD UREA NITROGEN 19 mg/dL (7-20); CALCIUM 8.6 mg/dL (8.4-10.2); CARBON DIOXIDE 26 mmol/L (22-30); CHLORIDE 104 mmol/L (98-107); GLUCOSE 120 mg/dL (75-110); MAGNESIUM 2.1 mg/dL (1.6-2.3); POTASSIUM 4.8 mmol/L (3.6-5.0); SODIUM 140.3 mmol/L (137-145)
[2017-05-09] MEDS: FAMOTIDINE 20 MG TABLET PO SCH ×2 (10:47→21:53)
[2017-05-09] MEDS: LEVOFLOXACIN 500 MG TABLET PO SCH (10:47)
[2017-05-09] MEDS: AMLODIPINE BESYLATE 10 MG TABLET PO SCH (10:47)
[2017-05-09] MEDS: DOCUSATE SODIUM 100 MG CAPSULE PO SCH (10:47)
[2017-05-09] MEDS: ENOXAPARIN SODIUM INJ 40 MG/0.4 ML DISP.SYRIN SUBCUT SCH (10:48)
[2017-05-09] MEDS: NORMAL SALINE 10 ML SDV (SCHEDULED) IV SCH ×2 (10:50→21:53)
[2017-05-09] MEDS: CEFTRIAXONE 2 GM/D5W RTU 2 GM/50 ML RTUPB IV SCH (10:50)
--- NOTE | 2017-05-09 11:29 | PDOC PROGRESS REPORT ---
Subjective Progress Note for:: 05/09/17 Subjective:: reason for visit: f/u foot ulcer, DM, ARF reports continued aching pain in his foot since surgery but controlled on pain meds; reports persistent swelling of his legs L>R. denies chest pain, palpitations, N/V, melena, SOA, orthopnea, PND, wheezing, fevers/chills. wound vac remains in place with scant drainage. ROS: as above, all systems reviewed, remaining systems negative. Physical Exam Vital Signs: Temp Pulse Resp BP Pulse Ox 98.6 F 79 20 174/90 H 98 05/09/17 07:30 05/09/17 07:30 05/09/17 07:30 05/09/17 07:30 05/09/17 07:30 Intake & Output 05/08/17 05/09/17 05/10/17 06:59 06:59 06:59 Intake Total 860 1124 Output Total 425 1200 Balance 435 -76 Weight 87.4 kg General appearance: PRESENT: no acute distress, obese Eye exam: PRESENT: EOMI, PERRLA Mouth exam: PRESENT: moist, neck supple Neck exam: PRESENT: full ROM. ABSENT: lymphadenopathy Respiratory exam: PRESENT: crackles - only at the bases, unlabored. ABSENT: accessory muscle use, wheezes Cardiovascular exam: PRESENT: RRR. ABSENT: systolic murmur GI/Abdominal exam: PRESENT: soft. ABSENT: tenderness Extremities exam: PRESENT: +1 edema - asymmetric L>R, no palpable cords or masses, other - Rt 5th digit surgical site covered with wound vac, some surrounding swelling but no erythema or warmth Neurological exam: PRESENT: alert, awake, oriented to person, oriented to place , oriented to time, oriented to situation Psychiatric exam: PRESENT: appropriate affect, normal mood Skin exam: PRESENT: dry, warm Results Laboratory Results: 05/09/17 06:13 05/09/17 06:13 05/09/17 05/09/17 06:13 06:13 WBC 10.6 H RBC 3.43 L Hgb 10.2 L Hct 30.4 L MCV 89 MCH 29.7 MCHC 33.5 RDW 13.4 Plt Count 346 Seg Neutrophils % 62.9 Lymphocytes % 21.5 Monocytes % 13.0 Eosinophils % 2.1 Basophils % 0.5 Absolute Neutrophils 6.7 Absolute Lymphocytes 2.3 Absolute Monocytes 1.4 Absolute Eosinophils 0.2 Absolute Basophils 0.0 Sodium 140.3 Potassium 4.8 Chloride 104 Carbon Dioxide 26 Anion Gap 10 BUN 19 Creatinine 1.32 H Est GFR ( Amer) > 60 Est GFR (Non-Af Amer) 56 L Glucose 120 H Calcium 8.6 Magnesium 2.1 Impressions: Foot X-Ray 05/01/17 14:36 IMPRESSION: PATIENT WITH PRIOR HEALED 4TH AND 5TH METATARSAL FRACTURES WITH SHAGGY APPEARANCE INVOLVING THE FRACTURE SITES WHICH COULD REPRESENT SEQUELA OF THE PRIOR HEALING OR SUPERIMPOSED OSTEOMYELITIS GIVEN PATIENT'S HISTORY OF ULCERATION. MRI IS FOR FURTHER EVALUATION CLINICALLY INDICATED. Lower Extremity MRI 05/01/17 15:51 IMPRESSION: Ulcer over the base of the 5th metatarsal with bony cortical with erosion and abnormal marrow signal in the proximal 2/3 of the 5th metatarsal compatible with osteomyelitis. Guidance Fluoroscopy 05/05/17 00:00 IMPRESSION: Please see combined report for performance of procedure and radiologic supervision and interpretation. Interventional Vascular Procedure 05/05/17 00:00 IMPRESSION: Please see combined report for performance of procedure and radiologic supervision and interpretation. PICC Line Insertion 05/05/17 00:00 IMPRESSION: SUCCESSFUL PLACEMENT OF A 5 FR dual LUMEN 39 CM PICC IN THE basilic VEIN. Assessment & Plan - Diagnosis (1) Diabetic foot infection Is this a current diagnosis for this admission?: Yes Plan: osteomyelitis with asct'd cellulitis 2/2 polymicrobial infection s/p amputation of offending digit; continue wound vac and IV abx (2) Acute pain Is this a current diagnosis for this admission?: Yes Plan: 2/2 above, reasonably well controlled with above regimen, continue same (3) Acute renal failure Is this a current diagnosis for this admission?: Yes Plan: likely at baseline and has underlying chronic kidney disease stage 2 related to his DM (4) Hyperlipidemia Is this a current diagnosis for this admission?: Yes Plan: stable (5) Hypertension Qualifiers: Hypertension type: essential hypertension Qualified Code(s): I10 - Essential (primary) hypertension Is this a current diagnosis for this admission?: Yes Plan: fluctuating course and likely worsened by infection and pain in the foot; consider hydralazine or chlorthalidone if his renal function will allow should his trend continue outside goal of <140/90 consistently. 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 may need further dose titration. - Time Time Spent with patient: 25-34 minutes Medications reviewed and adjusted accordingly: Yes
[2017-05-09] MEDS: INSULIN LISPRO 100 UNIT/ML 3 ML VIAL SUBCUT PRN ×2 (16:59→21:53)
[2017-05-09] MEDS: OXYCODONE-ACETAMINOPHEN 5-325 MG TABLET PO PRN ×2 (17:06)
[2017-05-09] MEDS: INSULIN GLARGINE,HUM.REC.ANLOG 300 UNIT/3 ML INSULN.PEN SUBCUT SCH ×2 (21:53)
[2017-05-09] MEDS: ZOLPIDEM TARTRATE 5 MG TABLET PO PRN (21:53)
[2017-05-10] MEDS: MORPHINE SULFATE 10 MG/ML INJ IV PRN ×4 (00:40→21:41)
[2017-05-10] MEDS: ALPRAZOLAM 0.25 MG TABLET PO PRN ×2 (04:18→18:01)
[2017-05-10] MEDS: OXYCODONE-ACETAMINOPHEN 5-325 MG TABLET PO PRN (04:18)
[2017-05-10] MEDS: LANSOPRAZOLE 30 MG TAB.RAP.DR PO SCH ×2 (05:35→17:21)
[2017-05-10] MEDS: DOCUSATE SODIUM 100 MG CAPSULE PO SCH (10:06)
[2017-05-10] MEDS: LEVOFLOXACIN 500 MG TABLET PO SCH (10:06)
[2017-05-10] MEDS: AMLODIPINE BESYLATE 10 MG TABLET PO SCH (10:06)
[2017-05-10] MEDS: FAMOTIDINE 20 MG TABLET PO SCH ×2 (10:06→21:41)
[2017-05-10] MEDS: NORMAL SALINE 10 ML SDV (SCHEDULED) IV SCH ×2 (10:07→21:41)
[2017-05-10] MEDS: ENOXAPARIN SODIUM INJ 40 MG/0.4 ML DISP.SYRIN SUBCUT SCH (10:08)
[2017-05-10] MEDS: CEFTRIAXONE 2 GM/D5W RTU 2 GM/50 ML RTUPB IV SCH (10:08)
[2017-05-10] MEDS: INSULIN LISPRO 100 UNIT/ML 3 ML VIAL SUBCUT PRN ×3 (10:09→22:15)
--- NOTE | 2017-05-10 10:43 | PDOC PROGRESS REPORT ---
Subjective Progress Note for:: 05/10/17 Subjective:: This is a follow-up visit for diabetic foot ulcer. Patient is status post amputation with wound VAC. Patient has no complaints today. Physical Exam Vital Signs: Temp Pulse Resp BP Pulse Ox 98.4 F 65 14 150/85 H 98 05/10/17 07:31 05/10/17 07:31 05/10/17 07:31 05/10/17 07:31 05/10/17 07:31 Intake & Output 05/09/17 05/10/17 05/11/17 06:59 06:59 06:59 Intake Total 1957 1720 Output Total 1875 7065 Balance 83 -655 Weight 87.4 kg GENERAL: This is a well-developed and nourished appearing -[place] male resting in his recliner currently in no acute distress. HEART: Regular rate and rhythm. No murmurs, rubs or gallops. LUNGS: Clear to auscultation bilaterally with equal rise and fall of the chest. ABDOMEN: Soft, nontender, nondistended with normoactive bowel sounds EXTREMETIES: No clubbing, cyanosis. trace edema of the right foot. 2+ peripheral pulses bilaterally. Wound VAC on the right foot is in place. NEURO: Awake, alert and oriented 3. Cranial nerves II through XII are grossly intact. Results Laboratory Results: 05/09/17 06:13 05/09/17 06:13 Impressions: Foot X-Ray 05/01/17 14:36 IMPRESSION: PATIENT WITH PRIOR HEALED 4TH AND 5TH METATARSAL FRACTURES WITH SHAGGY APPEARANCE INVOLVING THE FRACTURE SITES WHICH COULD REPRESENT SEQUELA OF THE PRIOR HEALING OR SUPERIMPOSED OSTEOMYELITIS GIVEN PATIENT'S HISTORY OF ULCERATION. MRI IS FOR FURTHER EVALUATION CLINICALLY INDICATED. Lower Extremity MRI 05/01/17 15:51 IMPRESSION: Ulcer over the base of the 5th metatarsal with bony cortical with erosion and abnormal marrow signal in the proximal 2/3 of the 5th metatarsal compatible with osteomyelitis. Guidance Fluoroscopy 05/05/17 00:00 IMPRESSION: Please see combined report for performance of procedure and radiologic supervision and interpretation. Interventional Vascular Procedure 05/05/17 00:00 IMPRESSION: Please see combined report for performance of procedure and radiologic supervision and interpretation. PICC Line Insertion 05/05/17 00:00 IMPRESSION: SUCCESSFUL PLACEMENT OF A 5 FR dual LUMEN 39 CM PICC IN THE basilic VEIN. 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 Wound VAC is in place. All cultures have come back. Change to p.o. medicine in a.m. Levaquin and Augmentin will be the most likely choices. For now continue Rocephin and Levaquin p.o. (2) Hyperlipidemia Is this a current diagnosis for this admission?: Yes (3) Hypertension Qualifiers: Hypertension type: essential hypertension Qualified Code(s): I10 - Essential (primary) hypertension Is this a current diagnosis for this admission?: Yes Plan: Continue Norvasc. (4) Uncontrolled type 2 diabetes mellitus Qualifiers: Diabetes mellitus complication status: with unspecified complications Diabetes mellitus detention insulin use: without detention use Qualified Code( s): E11.8 - Type 2 diabetes mellitus with unspecified complications; E11.65 - Type 2 diabetes mellitus with hyperglycemia; E11.65 - Type 2 diabetes mellitus with hyperglycemia; E11.65 - Type 2 diabetes mellitus with hyperglycemia; E11.65 - Type 2 diabetes mellitus with hyperglycemia Is this a current diagnosis for this admission?: Yes Plan: Blood sugars have actually been trending low. His insulin was cut in half. Now his blood sugars have trended back up. Continue to monitor for today. Adjust accordingly based on blood sugars tomorrow (5) Acute renal failure Is this a current diagnosis for this admission?: Yes Plan: Encourage p.o. Fluids. Continue to monitor. Resolved. (6) Acute pain Is this a current diagnosis for this admission?: Yes Plan: Patient has acute pain after his amputation. As needed pain medications as ordered by surgery (7) Anxiety Plan: Continue Xanax as needed. - Time Time Spent with patient: 15-24 minutes Anticipated discharge: SNF
[2017-05-10] MEDS: ZOLPIDEM TARTRATE 5 MG TABLET PO PRN (21:41)
[2017-05-10] MEDS: INSULIN GLARGINE,HUM.REC.ANLOG 300 UNIT/3 ML INSULN.PEN SUBCUT SCH (22:15)
[2017-05-11] MEDS: MORPHINE SULFATE 10 MG/ML INJ IV PRN ×4 (04:25→22:13)
[2017-05-11] MEDS: LANSOPRAZOLE 30 MG TAB.RAP.DR PO SCH ×2 (05:58→17:18)
--- NOTE | 2017-05-11 09:45 | PDOC PROGRESS REPORT ---
Subjective Progress Note for:: 05/11/17 Subjective:: This is a follow-up visit for diabetic foot ulcer. Patient is a diabetic who presented with a diabetic ulcer necessitating amputation of the fifth digit on the right foot. The patient is homeless and had been sleeping in a graveyard prior to presentation. Since he has been here he has had his amputation and is now being treated with a wound VAC. He is on appropriate antibiotics according to susceptibilities of his wound culture and is being switched to oral medications today. Patient now is finding appropriate placement for this patient while he is recovering the wound VAC. The patient has had episodes of decreased cooperation with the nursing staff. These seem to happen intermittently. He also shows evidence of anxiety and was started on as needed Xanax. With me the patient has been very cordial and I have reiterated to him that he needs to do as much for himself as he can. PT started working with him over the weekend and his wheelchair was removed from his room and replaced with a walker. The patient is to get up and ambulate with assistance. Physical Exam Vital Signs: Temp Pulse Resp BP Pulse Ox 98.4 F 64 15 142/64 H 98 05/10/17 23:40 05/10/17 23:40 05/10/17 23:40 05/10/17 23:40 05/10/17 23:40 Intake & Output 05/10/17 05/11/17 05/12/17 06:59 06:59 06:59 Intake Total 1720 2066 Output Total 2375 2125 Balance -655 -59 GENERAL: This is a well-developed and nourished appearing -[place] male resting in his recliner currently in no acute distress. HEART: Regular rate and rhythm. No murmurs, rubs or gallops. LUNGS: Clear to auscultation bilaterally with equal rise and fall of the chest. ABDOMEN: Soft, nontender, nondistended with normoactive bowel sounds EXTREMETIES: No clubbing, cyanosis. trace edema of the right foot. Wound VAC on the right foot is in place. NEURO: Awake, alert and oriented 3. Cranial nerves II through XII are grossly intact. Results Laboratory Results: 05/09/17 06:13 05/09/17 06:13 Impressions: Foot X-Ray 05/01/17 14:36 IMPRESSION: PATIENT WITH PRIOR HEALED 4TH AND 5TH METATARSAL FRACTURES WITH SHAGGY APPEARANCE INVOLVING THE FRACTURE SITES WHICH COULD REPRESENT SEQUELA OF THE PRIOR HEALING OR SUPERIMPOSED OSTEOMYELITIS GIVEN PATIENT'S HISTORY OF ULCERATION. MRI IS FOR FURTHER EVALUATION CLINICALLY INDICATED. Lower Extremity MRI 05/01/17 15:51 IMPRESSION: Ulcer over the base of the 5th metatarsal with bony cortical with erosion and abnormal marrow signal in the proximal 2/3 of the 5th metatarsal compatible with osteomyelitis. Guidance Fluoroscopy 05/05/17 00:00 IMPRESSION: Please see combined report for performance of procedure and radiologic supervision and interpretation. Interventional Vascular Procedure 05/05/17 00:00 IMPRESSION: Please see combined report for performance of procedure and radiologic supervision and interpretation. PICC Line Insertion 05/05/17 00:00 IMPRESSION: SUCCESSFUL PLACEMENT OF A 5 FR dual LUMEN 39 CM PICC IN THE basilic VEIN. 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 Wound VAC is in place. All cultures have come back. Change to p.o. medicine Levaquin and Augmentin. (2) Hyperlipidemia Is this a current diagnosis for this admission?: Yes (3) Hypertension Qualifiers: Hypertension type: essential hypertension Qualified Code(s): I10 - Essential (primary) hypertension Is this a current diagnosis for this admission?: Yes Plan: Continue Norvasc. Blood pressures remain high. Will add on 10 of lisinopril. 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 His blood sugars were running quite high prior to amputation and shortly thereafter. Then they began to run low and his insulin was cut in half. Now his blood sugars are trending back up. Today am going to increase his Lantus up to 25 nightly. We will continue to monitor and adjust accordingly. (5) Acute renal failure Is this a current diagnosis for this admission?: Yes Plan: This is better described as acute on chronic kidney failure stage III. The acute portion of the patient's renal failure is resolved. Continue to monitor with addition of lisinopril. (6) Acute pain Is this a current diagnosis for this admission?: Yes Plan: Patient has acute pain after his amputation. As needed pain medications as ordered by surgery (7) Anxiety Plan: Continue Xanax as needed. - Time Time Spent with patient: 15-24 minutes Anticipated discharge: SNF Within: when bed available
[2017-05-11] MEDS: INSULIN LISPRO 100 UNIT/ML 3 ML VIAL SUBCUT PRN ×4 (10:13→22:00)
[2017-05-11] MEDS: ENOXAPARIN SODIUM INJ 40 MG/0.4 ML DISP.SYRIN SUBCUT SCH (10:13)
[2017-05-11] MEDS: LEVOFLOXACIN 500 MG TABLET PO SCH (10:14)
[2017-05-11] MEDS: NORMAL SALINE 10 ML SDV (SCHEDULED) IV SCH ×2 (10:14→22:01)
[2017-05-11] MEDS: AMLODIPINE BESYLATE 10 MG TABLET PO SCH (10:15)
[2017-05-11] MEDS: FAMOTIDINE 20 MG TABLET PO SCH ×2 (10:15→21:59)
[2017-05-11] MEDS: DOCUSATE SODIUM 100 MG CAPSULE PO SCH (10:15)
[2017-05-11] MEDS: OXYCODONE-ACETAMINOPHEN 5-325 MG TABLET PO PRN (12:56)
[2017-05-11] MEDS: AMOXICILLIN TR/POT CLAVULANATE 500-125 MG TAB PO SCH ×2 (15:22→21:59)
[2017-05-11] MEDS: INSULIN GLARGINE,HUM.REC.ANLOG 300 UNIT/3 ML INSULN.PEN SUBCUT SCH (21:59)
[2017-05-12] MEDS: MORPHINE SULFATE 10 MG/ML INJ IV PRN ×4 (05:13→21:04)
[2017-05-12] MEDS: AMOXICILLIN TR/POT CLAVULANATE 500-125 MG TAB PO SCH ×3 (05:53→21:04)
[2017-05-12] MEDS: LANSOPRAZOLE 30 MG TAB.RAP.DR PO SCH ×2 (05:56→16:43)
[2017-05-12 06:32] LABS: ABSOLUTE EOSINOPHILS # (AUTO) 0.3 10^3/uL (0.0-0.6); ABSOLUTE LYMPHOCYTES (AUTO) 1.6 10^3/uL (0.5-4.7); ABSOLUTE MONOCYTES (AUTO) 0.8 10^3/uL (0.1-1.4); ABSOLUTE NEUT (AUTO) 6.1 10^3/uL (1.7-8.2); BASOPHILS % (AUTO) 0.5 % (0-2); HEMOGLOBIN 11.1 g/dL (13.5-17.0); LYMPHOCYTES % (AUTO) 18.1 % (13-45); MEAN CORPUSCULAR HEMOGLOBIN 29.8 pg (27.0-33.4); MEAN CORPUSCULAR HGB CONC 33.7 g/dL (32.0-36.0); MEAN CORPUSCULAR VOLUME 88 fl (80-97); PLATELET COUNT 424 10^3/uL (150-450); RED BLOOD COUNT 3.74 10^6/uL (4.35-5.55); RED CELL DISTRIBUTION WIDTH 13.7 % (11.5-14.0); SEGMENTED NEUTROPHILS % (AUTO) 69.4 % (42-78); TOTAL CELLS COUNTED % (AUTO) 100 %; WHITE BLOOD COUNT 8.9 10^3/uL (4.0-10.5)
[2017-05-12 07:22] LABS: ANION GAP 12 (5-19); BLOOD UREA NITROGEN 16 mg/dL (7-20); CALCIUM 9.6 mg/dL (8.4-10.2); CARBON DIOXIDE 29 mmol/L (22-30); CHLORIDE 100 mmol/L (98-107); GLUCOSE 198 mg/dL (75-110); MAGNESIUM 1.9 mg/dL (1.6-2.3); POTASSIUM 4.9 mmol/L (3.6-5.0); SODIUM 141.1 mmol/L (137-145)
[2017-05-12] MEDS: AMLODIPINE BESYLATE 10 MG TABLET PO SCH (09:23)
[2017-05-12] MEDS: DOCUSATE SODIUM 100 MG CAPSULE PO SCH (09:23)
[2017-05-12] MEDS: FAMOTIDINE 20 MG TABLET PO SCH ×2 (09:24→21:04)
[2017-05-12] MEDS: LEVOFLOXACIN 500 MG TABLET PO SCH (09:24)
[2017-05-12] MEDS: NORMAL SALINE 10 ML SDV (SCHEDULED) IV SCH ×2 (09:24→21:06)
[2017-05-12] MEDS: ENOXAPARIN SODIUM INJ 40 MG/0.4 ML DISP.SYRIN SUBCUT SCH (09:25)
[2017-05-12] MEDS: INSULIN LISPRO 100 UNIT/ML 3 ML VIAL SUBCUT PRN ×3 (09:35→21:07)
[2017-05-12] MEDS: HALOPERIDOL 2 MG TABLET PO SCH ×2 (10:51→21:16)
--- NOTE | 2017-05-12 12:18 | PDOC PROGRESS REPORT ---
Subjective Progress Note for:: 05/12/17 Subjective:: Complains of pain in his right foot consistent with a neuropathy pain Physical Exam Vital Signs: Temp Pulse Resp BP Pulse Ox 98.0 F 64 18 145/60 H 99 05/12/17 07:21 05/12/17 07:21 05/12/17 07:21 05/12/17 07:21 05/12/17 07:21 Intake & Output 05/11/17 05/12/17 05/13/17 06:59 06:59 06:59 Intake Total 2066 1726 Output Total 2126 3200 Balance -59 -1474 General appearance: PRESENT: no acute distress Eye exam: PRESENT: conjunctiva pink. ABSENT: scleral icterus Mouth exam: PRESENT: moist, tongue midline Neck exam: ABSENT: JVD Respiratory exam: PRESENT: clear to auscultation manuel. ABSENT: rales, rhonchi, wheezes Cardiovascular exam: PRESENT: RRR. ABSENT: diastolic murmur, rubs, systolic murmur GI/Abdominal exam: PRESENT: normal bowel sounds, soft. ABSENT: distended, guarding, mass, organolmegaly, rebound, tenderness Extremities exam: PRESENT: full ROM, other - Patient has a wound VAC in place on his right lateral foot.. ABSENT: calf tenderness, clubbing, pedal edema Neurological exam: PRESENT: alert, awake, oriented to person, oriented to place , oriented to time, oriented to situation, CN II-XII grossly intact. ABSENT: motor sensory deficit Psychiatric exam: PRESENT: appropriate affect Skin exam: PRESENT: other - Wound VAC in place on the right lateral foot. Results Laboratory Results: 05/12/17 06:15 05/12/17 06:15 05/12/17 05/12/17 06:15 06:15 WBC 8.9 RBC 3.74 L Hgb 11.1 L Hct 33.0 L MCV 88 MCH 29.8 MCHC 33.7 RDW 13.7 Plt Count 424 Seg Neutrophils % 69.4 Lymphocytes % 18.1 Monocytes % 9.0 Eosinophils % 3.0 Basophils % 0.5 Absolute Neutrophils 6.1 Absolute Lymphocytes 1.6 Absolute Monocytes 0.8 Absolute Eosinophils 0.3 Absolute Basophils 0.0 Sodium 141.1 Potassium 4.9 Chloride 100 Carbon Dioxide 29 Anion Gap 12 BUN 16 Creatinine 1.49 H Est GFR ( Amer) 59 L Est GFR (Non-Af Amer) 48 L Glucose 198 H Calcium 9.6 Magnesium 1.9 Impressions: Foot X-Ray 05/01/17 14:36 IMPRESSION: PATIENT WITH PRIOR HEALED 4TH AND 5TH METATARSAL FRACTURES WITH SHAGGY APPEARANCE INVOLVING THE FRACTURE SITES WHICH COULD REPRESENT SEQUELA OF THE PRIOR HEALING OR SUPERIMPOSED OSTEOMYELITIS GIVEN PATIENT'S HISTORY OF ULCERATION. MRI IS FOR FURTHER EVALUATION CLINICALLY INDICATED. Lower Extremity MRI 05/01/17 15:51 IMPRESSION: Ulcer over the base of the 5th metatarsal with bony cortical with erosion and abnormal marrow signal in the proximal 2/3 of the 5th metatarsal compatible with osteomyelitis. Guidance Fluoroscopy 05/05/17 00:00 IMPRESSION: Please see combined report for performance of procedure and radiologic supervision and interpretation. Interventional Vascular Procedure 05/05/17 00:00 IMPRESSION: Please see combined report for performance of procedure and radiologic supervision and interpretation. PICC Line Insertion 05/05/17 00:00 IMPRESSION: SUCCESSFUL PLACEMENT OF A 5 FR dual LUMEN 39 CM PICC IN THE basilic VEIN. Assessment & Plan - Diagnosis (1) Diabetic foot infection Is this a current diagnosis for this admission?: Yes Plan: Patient had an MRI that shows osteomyelitis. General surgery performed removal of the right fifth metatarsal ray. We will continue with antibiotics and wound VAC placement when appropriate. Patient is currently on Augmentin and Levaquin.. Patient has polymicrobial bacterial growth from cultures. (2) Hypertension Qualifiers: Hypertension type: essential hypertension Qualified Code(s): I10 - Essential (primary) hypertension Is this a current diagnosis for this admission?: Yes Plan: Blood pressure is improved on Norvasc. (3) Uncontrolled type 2 diabetes mellitus Qualifiers: Diabetes mellitus complication status: with unspecified complications Diabetes mellitus emt intermediate insulin use: without emt intermediate use Qualified Code( s): E11.8 - Type 2 diabetes mellitus with unspecified complications; E11.65 - Type 2 diabetes mellitus with hyperglycemia; E11.65 - Type 2 diabetes mellitus with hyperglycemia; E11.65 - Type 2 diabetes mellitus with hyperglycemia; E11.65 - Type 2 diabetes mellitus with hyperglycemia Is this a current diagnosis for this admission?: Yes Plan: Will continue the Lantus and continue sliding scale insulin. (4) Hyperlipidemia Is this a current diagnosis for this admission?: Yes (5) Peripheral neuropathy Is this a current diagnosis for this admission?: Yes Plan: We will start on gabapentin. - Time Time Spent with patient: 25-34 minutes - Inpatient Certification Medical Necessity: Need Close Monitoring Due to Risk of Patient Decompensation
[2017-05-12] MEDS: GABAPENTIN 300 MG CAPSULE PO SCH ×2 (14:29→21:04)
[2017-05-12] MEDS ORDERED: ALPRAZOLAM 0.25 MG TABLET PO PRN (14:30)
[2017-05-12] MEDS: INSULIN GLARGINE,HUM.REC.ANLOG 300 UNIT/3 ML INSULN.PEN SUBCUT SCH (21:13)
[2017-05-13] MEDS: GABAPENTIN 300 MG CAPSULE PO SCH ×3 (05:24→22:05)
[2017-05-13] MEDS: AMOXICILLIN TR/POT CLAVULANATE 500-125 MG TAB PO SCH ×3 (05:24→22:05)
[2017-05-13] MEDS: LANSOPRAZOLE 30 MG TAB.RAP.DR PO SCH ×2 (05:24→17:04)
[2017-05-13 06:03] LABS: ABSOLUTE EOSINOPHILS # (AUTO) 0.3 10^3/uL (0.0-0.6); ABSOLUTE LYMPHOCYTES (AUTO) 1.8 10^3/uL (0.5-4.7); ABSOLUTE MONOCYTES (AUTO) 0.8 10^3/uL (0.1-1.4); BASOPHILS % (AUTO) 0.6 % (0-2); EOSINOPHILS % (AUTO) 3.3 % (0-6); HEMATOCRIT 32.2 % (37.9-51.0); HEMOGLOBIN 10.8 g/dL (13.5-17.0); LYMPHOCYTES % (AUTO) 23.2 % (13-45); MEAN CORPUSCULAR HEMOGLOBIN 29.5 pg (27.0-33.4); MEAN CORPUSCULAR HGB CONC 33.5 g/dL (32.0-36.0); MEAN CORPUSCULAR VOLUME 88 fl (80-97); MONOCYTES % (AUTO) 10.5 % (3-13); PLATELET COUNT 404 10^3/uL (150-450); RED BLOOD COUNT 3.65 10^6/uL (4.35-5.55); RED CELL DISTRIBUTION WIDTH 13.2 % (11.5-14.0); SEGMENTED NEUTROPHILS % (AUTO) 62.4 % (42-78); TOTAL CELLS COUNTED % (AUTO) 100 %; WHITE BLOOD COUNT 7.9 10^3/uL (4.0-10.5)
[2017-05-13 06:19] LABS: ANION GAP 11 (5-19); BLOOD UREA NITROGEN 23 mg/dL (7-20); CALCIUM 9.4 mg/dL (8.4-10.2); CARBON DIOXIDE 27 mmol/L (22-30); CHLORIDE 101 mmol/L (98-107); GLUCOSE 170 mg/dL (75-110); POTASSIUM 5.3 mmol/L (3.6-5.0); SODIUM 139.1 mmol/L (137-145)
[2017-05-13] MEDS: ENOXAPARIN SODIUM INJ 40 MG/0.4 ML DISP.SYRIN SUBCUT SCH (12:41)
[2017-05-13] MEDS: HALOPERIDOL 2 MG TABLET PO SCH ×2 (12:41→22:05)
[2017-05-13] MEDS: DOCUSATE SODIUM 100 MG CAPSULE PO SCH (12:42)
[2017-05-13] MEDS: FAMOTIDINE 20 MG TABLET PO SCH ×2 (12:42→22:05)
[2017-05-13] MEDS: LEVOFLOXACIN 500 MG TABLET PO SCH (12:42)
[2017-05-13] MEDS: AMLODIPINE BESYLATE 10 MG TABLET PO SCH (12:42)
[2017-05-13] MEDS: NORMAL SALINE 10 ML SDV (SCHEDULED) IV SCH ×2 (12:43→22:05)
[2017-05-13] MEDS: OXYCODONE HCL IR 5 MG TABLET PO PRN ×2 (12:48→20:38)
[2017-05-13] MEDS: INSULIN LISPRO 100 UNIT/ML 3 ML VIAL SUBCUT PRN ×2 (12:49→22:04)
--- NOTE | 2017-05-13 13:22 | PDOC PROGRESS REPORT ---
Subjective Progress Note for:: 05/13/17 Subjective:: Reports that his foot pain is slightly improved today. Physical Exam Vital Signs: Temp Pulse Resp BP Pulse Ox 98.4 F 68 22 H 166/74 H 100 05/13/17 08:16 05/13/17 08:16 05/13/17 08:16 05/13/17 08:16 05/13/17 08:16 Intake & Output 05/12/17 05/13/17 05/14/17 06:59 06:59 06:59 Intake Total 1726 1046 Output Total 3200 1400 Balance -1474 -354 General appearance: PRESENT: no acute distress Eye exam: PRESENT: conjunctiva pink. ABSENT: scleral icterus Ear exam: PRESENT: normal external ear exam Mouth exam: PRESENT: moist, tongue midline Neck exam: ABSENT: JVD Respiratory exam: PRESENT: clear to auscultation manuel. ABSENT: rales, rhonchi, wheezes Cardiovascular exam: PRESENT: RRR. ABSENT: diastolic murmur, rubs, systolic murmur GI/Abdominal exam: PRESENT: normal bowel sounds, soft. ABSENT: distended, guarding, mass, organolmegaly, rebound, tenderness Extremities exam: PRESENT: other - Wound VAC in place on the right foot.. ABSENT: calf tenderness, clubbing, pedal edema Neurological exam: PRESENT: alert, awake, oriented to person, oriented to place , oriented to time, oriented to situation, CN II-XII grossly intact. ABSENT: motor sensory deficit Psychiatric exam: PRESENT: appropriate affect Skin exam: PRESENT: other - Wound VAC in place on the right foot. Results Laboratory Results: 05/13/17 05:30 05/13/17 05:30 05/13/17 05/13/17 05:30 05:30 WBC 7.9 RBC 3.65 L Hgb 10.8 L Hct 32.2 L MCV 88 MCH 29.5 MCHC 33.5 RDW 13.2 Plt Count 404 Seg Neutrophils % 62.4 Lymphocytes % 23.2 Monocytes % 10.5 Eosinophils % 3.3 Basophils % 0.6 Absolute Neutrophils 5.0 Absolute Lymphocytes 1.8 Absolute Monocytes 0.8 Absolute Eosinophils 0.3 Absolute Basophils 0.0 Sodium 139.1 Potassium 5.3 H Chloride 101 Carbon Dioxide 27 Anion Gap 11 BUN 23 H Creatinine 1.53 H Est GFR ( Amer) 57 L Est GFR (Non-Af Amer) 47 L Glucose 170 H Calcium 9.4 Impressions: Foot X-Ray 05/01/17 14:36 IMPRESSION: PATIENT WITH PRIOR HEALED 4TH AND 5TH METATARSAL FRACTURES WITH SHAGGY APPEARANCE INVOLVING THE FRACTURE SITES WHICH COULD REPRESENT SEQUELA OF THE PRIOR HEALING OR SUPERIMPOSED OSTEOMYELITIS GIVEN PATIENT'S HISTORY OF ULCERATION. MRI IS FOR FURTHER EVALUATION CLINICALLY INDICATED. Lower Extremity MRI 05/01/17 15:51 IMPRESSION: Ulcer over the base of the 5th metatarsal with bony cortical with erosion and abnormal marrow signal in the proximal 2/3 of the 5th metatarsal compatible with osteomyelitis. Guidance Fluoroscopy 05/05/17 00:00 IMPRESSION: Please see combined report for performance of procedure and radiologic supervision and interpretation. Interventional Vascular Procedure 05/05/17 00:00 IMPRESSION: Please see combined report for performance of procedure and radiologic supervision and interpretation. PICC Line Insertion 05/05/17 00:00 IMPRESSION: SUCCESSFUL PLACEMENT OF A 5 FR dual LUMEN 39 CM PICC IN THE basilic VEIN. Assessment & Plan - Diagnosis (1) Diabetic foot infection Is this a current diagnosis for this admission?: Yes Plan: Patient had an MRI that shows osteomyelitis. General surgery performed removal of the right fifth metatarsal ray. We will continue with antibiotics and wound VAC. Patient is currently on Augmentin and Levaquin.. Patient has polymicrobial bacterial growth from cultures. (2) Hypertension Qualifiers: Hypertension type: essential hypertension Qualified Code(s): I10 - Essential (primary) hypertension Is this a current diagnosis for this admission?: Yes Plan: Blood pressure is improved on Norvasc. (3) Uncontrolled type 2 diabetes mellitus Qualifiers: Diabetes mellitus complication status: with unspecified complications Diabetes mellitus penitentiary insulin use: without adjunct faculty for medical terminology use Qualified Code( s): E11.8 - Type 2 diabetes mellitus with unspecified complications; E11.65 - Type 2 diabetes mellitus with hyperglycemia; E11.65 - Type 2 diabetes mellitus with hyperglycemia; E11.65 - Type 2 diabetes mellitus with hyperglycemia; E11.65 - Type 2 diabetes mellitus with hyperglycemia Is this a current diagnosis for this admission?: Yes Plan: Will continue the Lantus and continue sliding scale insulin. (4) Hyperlipidemia Is this a current diagnosis for this admission?: Yes (5) Peripheral neuropathy Is this a current diagnosis for this admission?: Yes Plan: We will continue gabapentin. - Time Time Spent with patient: 25-34 minutes - Inpatient Certification Medical Necessity: Need for IV Antibiotics
[2017-05-13] MEDS: INSULIN GLARGINE,HUM.REC.ANLOG 300 UNIT/3 ML INSULN.PEN SUBCUT SCH (22:04)
[2017-05-13] MEDS: ZOLPIDEM TARTRATE 5 MG TABLET PO PRN (22:05)
[2017-05-14] MEDS: OXYCODONE HCL IR 5 MG TABLET PO PRN ×4 (06:43→22:20)
[2017-05-14] MEDS: AMOXICILLIN TR/POT CLAVULANATE 500-125 MG TAB PO SCH ×3 (06:44→22:10)
[2017-05-14] MEDS: LANSOPRAZOLE 30 MG TAB.RAP.DR PO SCH ×2 (06:44→16:33)
[2017-05-14] MEDS: GABAPENTIN 300 MG CAPSULE PO SCH ×3 (06:45→22:09)
[2017-05-14 07:47] LABS: ABSOLUTE EOSINOPHILS # (AUTO) 0.3 10^3/uL (0.0-0.6); ABSOLUTE LYMPHOCYTES (AUTO) 1.8 10^3/uL (0.5-4.7); ABSOLUTE MONOCYTES (AUTO) 0.8 10^3/uL (0.1-1.4); ABSOLUTE NEUT (AUTO) 6.5 10^3/uL (1.7-8.2); BASOPHILS % (AUTO) 0.5 % (0-2); EOSINOPHILS % (AUTO) 2.7 % (0-6); HEMATOCRIT 33.3 % (37.9-51.0); LYMPHOCYTES % (AUTO) 18.7 % (13-45); MEAN CORPUSCULAR HEMOGLOBIN 29.3 pg (27.0-33.4); MEAN CORPUSCULAR VOLUME 89 fl (80-97); PLATELET COUNT 439 10^3/uL (150-450); RED BLOOD COUNT 3.75 10^6/uL (4.35-5.55); RED CELL DISTRIBUTION WIDTH 13.7 % (11.5-14.0); SEGMENTED NEUTROPHILS % (AUTO) 69.1 % (42-78); TOTAL CELLS COUNTED % (AUTO) 100 %; WHITE BLOOD COUNT 9.5 10^3/uL (4.0-10.5)
[2017-05-14 07:54] LABS: ANION GAP 12 (5-19); BLOOD UREA NITROGEN 24 mg/dL (7-20); CALCIUM 9.4 mg/dL (8.4-10.2); CARBON DIOXIDE 27 mmol/L (22-30); CHLORIDE 101 mmol/L (98-107); GLUCOSE 160 mg/dL (75-110); POTASSIUM 4.9 mmol/L (3.6-5.0); SODIUM 140.3 mmol/L (137-145)
[2017-05-14] MEDS: ENOXAPARIN SODIUM INJ 40 MG/0.4 ML DISP.SYRIN SUBCUT SCH (10:53)
[2017-05-14] MEDS: AMLODIPINE BESYLATE 10 MG TABLET PO SCH (10:54)
[2017-05-14] MEDS: FAMOTIDINE 20 MG TABLET PO SCH ×2 (10:54→22:10)
[2017-05-14] MEDS: DOCUSATE SODIUM 100 MG CAPSULE PO SCH (10:56)
[2017-05-14] MEDS: NORMAL SALINE 10 ML SDV (SCHEDULED) IV SCH ×2 (10:56→22:12)
[2017-05-14] MEDS: HALOPERIDOL 2 MG TABLET PO SCH ×2 (10:56→22:11)
--- NOTE | 2017-05-14 11:01 | PDOC PROGRESS REPORT ---
Subjective Progress Note for:: 05/14/17 Subjective:: Complains of continued pain in his right foot Physical Exam Vital Signs: Temp Pulse Resp BP Pulse Ox 98.2 F 69 20 159/68 H 100 05/14/17 08:00 05/14/17 08:00 05/14/17 08:00 05/14/17 08:00 05/14/17 08:00 Intake & Output 05/13/17 05/14/17 05/15/17 06:59 06:59 06:59 Intake Total 1046 1169 Output Total 1400 1965 Balance -354 -796 General appearance: PRESENT: no acute distress Eye exam: PRESENT: conjunctiva pink. ABSENT: scleral icterus Mouth exam: PRESENT: moist, tongue midline Neck exam: ABSENT: JVD Respiratory exam: PRESENT: clear to auscultation manuel. ABSENT: rales, rhonchi, wheezes Cardiovascular exam: PRESENT: RRR. ABSENT: diastolic murmur, rubs, systolic murmur Vascular exam: PRESENT: normal capillary refill GI/Abdominal exam: PRESENT: normal bowel sounds, soft. ABSENT: distended, guarding, mass, organolmegaly, rebound, tenderness Extremities exam: PRESENT: other - Wound VAC in place on the right foot. ABSENT : calf tenderness, clubbing, pedal edema Neurological exam: PRESENT: alert, awake, oriented to person, oriented to place , oriented to time, oriented to situation, CN II-XII grossly intact. ABSENT: motor sensory deficit Psychiatric exam: PRESENT: appropriate affect Skin exam: PRESENT: other - Wound VAC in place in the right foot Results Laboratory Results: 05/14/17 06:40 05/14/17 06:40 05/14/17 05/14/17 06:40 06:40 WBC 9.5 RBC 3.75 L Hgb 11.0 L Hct 33.3 L MCV 89 MCH 29.3 MCHC 33.0 RDW 13.7 Plt Count 439 Seg Neutrophils % 69.1 Lymphocytes % 18.7 Monocytes % 9.0 Eosinophils % 2.7 Basophils % 0.5 Absolute Neutrophils 6.5 Absolute Lymphocytes 1.8 Absolute Monocytes 0.8 Absolute Eosinophils 0.3 Absolute Basophils 0.0 Sodium 140.3 Potassium 4.9 Chloride 101 Carbon Dioxide 27 Anion Gap 12 BUN 24 H Creatinine 1.64 H Est GFR ( Amer) 52 L Est GFR (Non-Af Amer) 43 L Glucose 160 H Calcium 9.4 Impressions: Foot X-Ray 05/01/17 14:36 IMPRESSION: PATIENT WITH PRIOR HEALED 4TH AND 5TH METATARSAL FRACTURES WITH SHAGGY APPEARANCE INVOLVING THE FRACTURE SITES WHICH COULD REPRESENT SEQUELA OF THE PRIOR HEALING OR SUPERIMPOSED OSTEOMYELITIS GIVEN PATIENT'S HISTORY OF ULCERATION. MRI IS FOR FURTHER EVALUATION CLINICALLY INDICATED. Lower Extremity MRI 05/01/17 15:51 IMPRESSION: Ulcer over the base of the 5th metatarsal with bony cortical with erosion and abnormal marrow signal in the proximal 2/3 of the 5th metatarsal compatible with osteomyelitis. Guidance Fluoroscopy 05/05/17 00:00 IMPRESSION: Please see combined report for performance of procedure and radiologic supervision and interpretation. Interventional Vascular Procedure 05/05/17 00:00 IMPRESSION: Please see combined report for performance of procedure and radiologic supervision and interpretation. PICC Line Insertion 05/05/17 00:00 IMPRESSION: SUCCESSFUL PLACEMENT OF A 5 FR dual LUMEN 39 CM PICC IN THE basilic VEIN. Assessment & Plan - Diagnosis (1) Diabetic foot infection Is this a current diagnosis for this admission?: Yes Plan: Patient had an MRI that shows osteomyelitis. General surgery performed removal of the right fifth metatarsal ray. We will continue with antibiotics and wound VAC. Patient is currently on Augmentin and Levaquin.. Patient has polymicrobial bacterial growth from cultures. (2) Hypertension Qualifiers: Hypertension type: essential hypertension Qualified Code(s): I10 - Essential (primary) hypertension Is this a current diagnosis for this admission?: Yes Plan: Blood pressure is improved on Norvasc. (3) Uncontrolled type 2 diabetes mellitus Qualifiers: Diabetes mellitus complication status: with unspecified complications Diabetes mellitus chcf insulin use: without termite technician use Qualified Code( s): E11.8 - Type 2 diabetes mellitus with unspecified complications; E11.65 - Type 2 diabetes mellitus with hyperglycemia; E11.65 - Type 2 diabetes mellitus with hyperglycemia; E11.65 - Type 2 diabetes mellitus with hyperglycemia; E11.65 - Type 2 diabetes mellitus with hyperglycemia Is this a current diagnosis for this admission?: Yes Plan: Will continue the Lantus and continue sliding scale insulin. (4) Hyperlipidemia Is this a current diagnosis for this admission?: Yes (5) Peripheral neuropathy Is this a current diagnosis for this admission?: Yes Plan: We will increase gabapentin. - Time Time Spent with patient: 15-24 minutes - Inpatient Certification Medical Necessity: Need for IV Antibiotics
[2017-05-14] MEDS: INSULIN LISPRO 100 UNIT/ML 3 ML VIAL SUBCUT PRN ×3 (11:19→22:25)
[2017-05-14] MEDS: INSULIN GLARGINE,HUM.REC.ANLOG 300 UNIT/3 ML INSULN.PEN SUBCUT SCH (22:25)
[2017-05-15] MEDS: LANSOPRAZOLE 30 MG TAB.RAP.DR PO SCH ×2 (05:45→16:48)
[2017-05-15] MEDS: OXYCODONE HCL IR 5 MG TABLET PO PRN ×4 (05:45→21:27)
[2017-05-15] MEDS: AMOXICILLIN TR/POT CLAVULANATE 500-125 MG TAB PO SCH ×3 (05:46→21:27)
[2017-05-15] MEDS: GABAPENTIN 300 MG CAPSULE PO SCH ×3 (05:46→21:27)
[2017-05-15 06:37] LABS: ANION GAP 14 (5-19); BLOOD UREA NITROGEN 29 mg/dL (7-20); CALCIUM 9.6 mg/dL (8.4-10.2); CARBON DIOXIDE 27 mmol/L (22-30); CHLORIDE 100 mmol/L (98-107); GLUCOSE 202 mg/dL (75-110); POTASSIUM 4.8 mmol/L (3.6-5.0); SODIUM 141.4 mmol/L (137-145)
[2017-05-15] MEDS: INSULIN LISPRO 100 UNIT/ML 3 ML VIAL SUBCUT PRN ×3 (08:00→16:48)
[2017-05-15] MEDS: ENOXAPARIN SODIUM INJ 40 MG/0.4 ML DISP.SYRIN SUBCUT SCH (10:25)
[2017-05-15] MEDS: FAMOTIDINE 20 MG TABLET PO SCH ×2 (10:25→21:27)
[2017-05-15] MEDS: NORMAL SALINE 10 ML SDV (SCHEDULED) IV SCH ×2 (10:25→21:27)
[2017-05-15] MEDS: AMLODIPINE BESYLATE 10 MG TABLET PO SCH (10:25)
[2017-05-15] MEDS: DOCUSATE SODIUM 100 MG CAPSULE PO SCH (10:25)
[2017-05-15] MEDS: HALOPERIDOL 2 MG TABLET PO SCH ×2 (10:26→21:27)
--- NOTE | 2017-05-15 10:33 | PDOC PROGRESS REPORT ---
Subjective Progress Note for:: 05/15/17 Subjective:: Denies any complaints Physical Exam Vital Signs: Temp Pulse Resp BP Pulse Ox 98.0 F 64 12 168/71 H 100 05/15/17 07:53 05/15/17 07:53 05/15/17 07:53 05/15/17 07:53 05/15/17 07:53 Intake & Output 05/14/17 05/15/17 05/16/17 06:59 06:59 06:59 Intake Total 1169 1880 Output Total 1965 1500 Balance -796 380 General appearance: PRESENT: no acute distress Eye exam: PRESENT: conjunctiva pink. ABSENT: scleral icterus Mouth exam: PRESENT: moist, tongue midline Neck exam: ABSENT: JVD Respiratory exam: PRESENT: clear to auscultation manuel. ABSENT: rales, rhonchi, wheezes Cardiovascular exam: PRESENT: RRR. ABSENT: diastolic murmur, rubs, systolic murmur GI/Abdominal exam: PRESENT: normal bowel sounds, soft. ABSENT: distended, guarding, mass, organolmegaly, rebound, tenderness Extremities exam: PRESENT: other - Wound VAC on the right foot.. ABSENT: calf tenderness, clubbing, pedal edema Neurological exam: PRESENT: alert, awake, oriented to person, oriented to place , oriented to time, oriented to situation, CN II-XII grossly intact. ABSENT: motor sensory deficit Psychiatric exam: PRESENT: appropriate affect Skin exam: PRESENT: other - Wound VAC present on the right lateral foot. Results Laboratory Results: 05/14/17 06:40 05/15/17 05:50 05/15/17 05:50 Sodium 141.4 Potassium 4.8 Chloride 100 Carbon Dioxide 27 Anion Gap 14 BUN 29 H Creatinine 1.63 H Est GFR ( Amer) 53 L Est GFR (Non-Af Amer) 44 L Glucose 202 H Calcium 9.6 Impressions: Foot X-Ray 05/01/17 14:36 IMPRESSION: PATIENT WITH PRIOR HEALED 4TH AND 5TH METATARSAL FRACTURES WITH SHAGGY APPEARANCE INVOLVING THE FRACTURE SITES WHICH COULD REPRESENT SEQUELA OF THE PRIOR HEALING OR SUPERIMPOSED OSTEOMYELITIS GIVEN PATIENT'S HISTORY OF ULCERATION. MRI IS FOR FURTHER EVALUATION CLINICALLY INDICATED. Lower Extremity MRI 05/01/17 15:51 IMPRESSION: Ulcer over the base of the 5th metatarsal with bony cortical with erosion and abnormal marrow signal in the proximal 2/3 of the 5th metatarsal compatible with osteomyelitis. Guidance Fluoroscopy 05/05/17 00:00 IMPRESSION: Please see combined report for performance of procedure and radiologic supervision and interpretation. Interventional Vascular Procedure 05/05/17 00:00 IMPRESSION: Please see combined report for performance of procedure and radiologic supervision and interpretation. PICC Line Insertion 05/05/17 00:00 IMPRESSION: SUCCESSFUL PLACEMENT OF A 5 FR dual LUMEN 39 CM PICC IN THE basilic VEIN. Assessment & Plan - Diagnosis (1) Diabetic foot infection Is this a current diagnosis for this admission?: Yes Plan: Patient had an MRI that shows osteomyelitis. General surgery performed removal of the right fifth metatarsal ray. We will continue with antibiotics and wound VAC. Patient is currently on Augmentin and Levaquin.. Patient has polymicrobial bacterial growth from cultures. (2) Hypertension Qualifiers: Hypertension type: essential hypertension Qualified Code(s): I10 - Essential (primary) hypertension Is this a current diagnosis for this admission?: Yes Plan: Blood pressure is improved on Norvasc. (3) Uncontrolled type 2 diabetes mellitus Qualifiers: Diabetes mellitus complication status: with unspecified complications Diabetes mellitus terminal computer operator insulin use: without fpc use Qualified Code( s): E11.8 - Type 2 diabetes mellitus with unspecified complications; E11.65 - Type 2 diabetes mellitus with hyperglycemia; E11.65 - Type 2 diabetes mellitus with hyperglycemia; E11.65 - Type 2 diabetes mellitus with hyperglycemia; E11.65 - Type 2 diabetes mellitus with hyperglycemia Is this a current diagnosis for this admission?: Yes Plan: Will continue the Lantus and continue sliding scale insulin. (4) Hyperlipidemia Is this a current diagnosis for this admission?: Yes (5) Peripheral neuropathy Is this a current diagnosis for this admission?: Yes Plan: We will continue gabapentin. - Time Time Spent with patient: 15-24 minutes - Inpatient Certification Medical Necessity: Need Close Monitoring Due to Risk of Patient Decompensation
[2017-05-15] MEDS: LEVOFLOXACIN 750 MG TABLET PO SCH (10:40)
[2017-05-15] MEDS: INSULIN GLARGINE,HUM.REC.ANLOG 300 UNIT/3 ML INSULN.PEN SUBCUT SCH (21:27)
[2017-05-16] MEDS: OXYCODONE HCL IR 5 MG TABLET PO PRN ×4 (03:54→21:37)
[2017-05-16] MEDS: AMOXICILLIN TR/POT CLAVULANATE 500-125 MG TAB PO SCH ×3 (05:43→21:37)
[2017-05-16] MEDS: GABAPENTIN 300 MG CAPSULE PO SCH ×3 (05:43→21:37)
[2017-05-16] MEDS: LANSOPRAZOLE 30 MG TAB.RAP.DR PO SCH ×2 (05:43→16:30)
[2017-05-16] MEDS: INSULIN LISPRO 100 UNIT/ML 3 ML VIAL SUBCUT PRN ×2 (08:33→16:30)
[2017-05-16] MEDS: AMLODIPINE BESYLATE 10 MG TABLET PO SCH (09:45)
[2017-05-16] MEDS: ENOXAPARIN SODIUM INJ 40 MG/0.4 ML DISP.SYRIN SUBCUT SCH (09:49)
[2017-05-16] MEDS: HALOPERIDOL 2 MG TABLET PO SCH ×2 (09:49→21:38)
[2017-05-16] MEDS: DOCUSATE SODIUM 100 MG CAPSULE PO SCH (09:49)
[2017-05-16] MEDS: LEVOFLOXACIN 750 MG TABLET PO SCH (09:49)
[2017-05-16] MEDS: FAMOTIDINE 20 MG TABLET PO SCH ×2 (09:49→21:37)
[2017-05-16] MEDS: NORMAL SALINE 10 ML SDV (SCHEDULED) IV SCH ×2 (09:50→21:38)
--- NOTE | 2017-05-16 11:21 | PDOC PROGRESS REPORT ---
Subjective Progress Note for:: 05/16/17 Subjective:: Denies any complaints Physical Exam Vital Signs: Temp Pulse Resp BP Pulse Ox 98.1 F 63 12 159/79 H 98 05/16/17 08:00 05/16/17 08:00 05/16/17 08:00 05/16/17 08:00 05/16/17 08:00 Intake & Output 05/15/17 05/16/17 05/17/17 06:59 06:59 06:59 Intake Total 1880 265 Output Total 1500 300 Balance 380 -35 General appearance: PRESENT: no acute distress Eye exam: PRESENT: conjunctiva pink. ABSENT: scleral icterus Mouth exam: PRESENT: moist, tongue midline Neck exam: ABSENT: JVD Respiratory exam: PRESENT: clear to auscultation manuel. ABSENT: rales, rhonchi, wheezes Cardiovascular exam: PRESENT: RRR. ABSENT: diastolic murmur, rubs, systolic murmur GI/Abdominal exam: PRESENT: normal bowel sounds, soft. ABSENT: distended, guarding, mass, organolmegaly, rebound, tenderness Extremities exam: PRESENT: other - Wound VAC in place on the right foot.. ABSENT: calf tenderness, clubbing, pedal edema Neurological exam: PRESENT: alert, awake, oriented to person, oriented to place , oriented to time, oriented to situation, CN II-XII grossly intact. ABSENT: motor sensory deficit Psychiatric exam: PRESENT: appropriate affect Skin exam: PRESENT: other - Wound VAC in place on the right foot. Results Laboratory Results: 05/14/17 06:40 05/15/17 05:50 Impressions: Foot X-Ray 05/01/17 14:36 IMPRESSION: PATIENT WITH PRIOR HEALED 4TH AND 5TH METATARSAL FRACTURES WITH SHAGGY APPEARANCE INVOLVING THE FRACTURE SITES WHICH COULD REPRESENT SEQUELA OF THE PRIOR HEALING OR SUPERIMPOSED OSTEOMYELITIS GIVEN PATIENT'S HISTORY OF ULCERATION. MRI IS FOR FURTHER EVALUATION CLINICALLY INDICATED. Lower Extremity MRI 05/01/17 15:51 IMPRESSION: Ulcer over the base of the 5th metatarsal with bony cortical with erosion and abnormal marrow signal in the proximal 2/3 of the 5th metatarsal compatible with osteomyelitis. Guidance Fluoroscopy 05/05/17 00:00 IMPRESSION: Please see combined report for performance of procedure and radiologic supervision and interpretation. Interventional Vascular Procedure 05/05/17 00:00 IMPRESSION: Please see combined report for performance of procedure and radiologic supervision and interpretation. PICC Line Insertion 05/05/17 00:00 IMPRESSION: SUCCESSFUL PLACEMENT OF A 5 FR dual LUMEN 39 CM PICC IN THE basilic VEIN. Assessment & Plan - Diagnosis (1) Diabetic foot infection Is this a current diagnosis for this admission?: Yes Plan: Patient had an MRI that shows osteomyelitis. General surgery performed removal of the right fifth metatarsal ray. We will continue with antibiotics and wound VAC. Patient is currently on Augmentin and Levaquin.. Patient has polymicrobial bacterial growth from cultures. (2) Hypertension Qualifiers: Hypertension type: essential hypertension Qualified Code(s): I10 - Essential (primary) hypertension Is this a current diagnosis for this admission?: Yes Plan: Blood pressure is improved on Norvasc. (3) Uncontrolled type 2 diabetes mellitus Qualifiers: Diabetes mellitus complication status: with unspecified complications Diabetes mellitus intermission coordinator insulin use: without mcfp use Qualified Code( s): E11.8 - Type 2 diabetes mellitus with unspecified complications; E11.65 - Type 2 diabetes mellitus with hyperglycemia; E11.65 - Type 2 diabetes mellitus with hyperglycemia; E11.65 - Type 2 diabetes mellitus with hyperglycemia; E11.65 - Type 2 diabetes mellitus with hyperglycemia Is this a current diagnosis for this admission?: Yes Plan: Will continue the Lantus and continue sliding scale insulin. (4) Hyperlipidemia Is this a current diagnosis for this admission?: Yes (5) Peripheral neuropathy Is this a current diagnosis for this admission?: Yes Plan: We will continue gabapentin. - Time Time Spent with patient: 15-24 minutes - Inpatient Certification Medical Necessity: Need for IV Antibiotics
[2017-05-16] MEDS: INSULIN GLARGINE,HUM.REC.ANLOG 300 UNIT/3 ML INSULN.PEN SUBCUT SCH (21:36)
[2017-05-16] MEDS: ZOLPIDEM TARTRATE 5 MG TABLET PO PRN (21:37)
[2017-05-17] MEDS: LANSOPRAZOLE 30 MG TAB.RAP.DR PO SCH ×2 (06:25→17:02)
[2017-05-17] MEDS: AMOXICILLIN TR/POT CLAVULANATE 500-125 MG TAB PO SCH ×3 (06:25→21:14)
[2017-05-17] MEDS: GABAPENTIN 300 MG CAPSULE PO SCH ×3 (06:25→21:13)
[2017-05-17] MEDS: OXYCODONE HCL IR 5 MG TABLET PO PRN ×3 (06:26→21:14)
[2017-05-17 06:45] LABS: ABSOLUTE BASOPHILS # (AUTO) 0.1 10^3/uL (0.0-0.2); ABSOLUTE EOSINOPHILS # (AUTO) 0.3 10^3/uL (0.0-0.6); ABSOLUTE MONOCYTES (AUTO) 0.8 10^3/uL (0.1-1.4); ABSOLUTE NEUT (AUTO) 4.2 10^3/uL (1.7-8.2); BASOPHILS % (AUTO) 0.9 % (0-2); EOSINOPHILS % (AUTO) 3.7 % (0-6); HEMATOCRIT 32.1 % (37.9-51.0); HEMOGLOBIN 10.6 g/dL (13.5-17.0); LYMPHOCYTES % (AUTO) 27.5 % (13-45); MEAN CORPUSCULAR HEMOGLOBIN 29.7 pg (27.0-33.4); MEAN CORPUSCULAR HGB CONC 33.2 g/dL (32.0-36.0); MEAN CORPUSCULAR VOLUME 90 fl (80-97); MONOCYTES % (AUTO) 10.9 % (3-13); PLATELET COUNT 350 10^3/uL (150-450); RED BLOOD COUNT 3.59 10^6/uL (4.35-5.55); RED CELL DISTRIBUTION WIDTH 13.6 % (11.5-14.0); TOTAL CELLS COUNTED % (AUTO) 100 %; WHITE BLOOD COUNT 7.4 10^3/uL (4.0-10.5)
[2017-05-17 07:06] LABS: ANION GAP 13 (5-19); BLOOD UREA NITROGEN 28 mg/dL (7-20); CALCIUM 9.2 mg/dL (8.4-10.2); CARBON DIOXIDE 26 mmol/L (22-30); CHLORIDE 103 mmol/L (98-107); GLUCOSE 199 mg/dL (75-110); POTASSIUM 4.6 mmol/L (3.6-5.0); SODIUM 141.6 mmol/L (137-145)
[2017-05-17] MEDS: INSULIN LISPRO 100 UNIT/ML 3 ML VIAL SUBCUT PRN ×4 (07:40→21:15)
[2017-05-17] MEDS: FAMOTIDINE 20 MG TABLET PO SCH ×2 (10:29→21:14)
[2017-05-17] MEDS: DOCUSATE SODIUM 100 MG CAPSULE PO SCH (10:29)
[2017-05-17] MEDS: AMLODIPINE BESYLATE 10 MG TABLET PO SCH (10:29)
[2017-05-17] MEDS: ENOXAPARIN SODIUM INJ 40 MG/0.4 ML DISP.SYRIN SUBCUT SCH (10:29)
[2017-05-17] MEDS: NORMAL SALINE 10 ML SDV (SCHEDULED) IV SCH ×2 (10:29→21:14)
[2017-05-17] MEDS: HALOPERIDOL 2 MG TABLET PO SCH ×2 (10:29→21:14)
[2017-05-17] MEDS: LEVOFLOXACIN 750 MG TABLET PO SCH (10:29)
--- NOTE | 2017-05-17 11:37 | PDOC PROGRESS REPORT ---
Subjective Progress Note for:: 05/17/17 Subjective:: Denies any complaints Physical Exam Vital Signs: Temp Pulse Resp BP Pulse Ox 99.0 F 72 17 145/75 H 99 05/17/17 04:00 05/17/17 04:00 05/17/17 04:00 05/17/17 04:00 05/17/17 04:00 Intake & Output 05/16/17 05/17/17 05/18/17 06:59 06:59 06:59 Intake Total 265 904 Output Total 300 Balance -35 904 General appearance: PRESENT: no acute distress Eye exam: PRESENT: conjunctiva pink. ABSENT: scleral icterus Mouth exam: PRESENT: moist, tongue midline Neck exam: ABSENT: JVD Respiratory exam: PRESENT: clear to auscultation manuel. ABSENT: rales, rhonchi, wheezes Cardiovascular exam: PRESENT: RRR. ABSENT: diastolic murmur, rubs, systolic murmur Extremities exam: PRESENT: other - Wound VAC in place on the right foot. ABSENT : calf tenderness, clubbing, pedal edema Neurological exam: PRESENT: alert, awake, oriented to person, oriented to place , oriented to time, oriented to situation, CN II-XII grossly intact. ABSENT: motor sensory deficit Psychiatric exam: PRESENT: appropriate affect Skin exam: PRESENT: other - Wound VAC in place on the right foot Results Laboratory Results: 05/17/17 06:00 05/17/17 06:00 05/17/17 05/17/17 06:00 06:00 WBC 7.4 RBC 3.59 L Hgb 10.6 L Hct 32.1 L MCV 90 MCH 29.7 MCHC 33.2 RDW 13.6 Plt Count 350 Seg Neutrophils % 57.0 Lymphocytes % 27.5 Monocytes % 10.9 Eosinophils % 3.7 Basophils % 0.9 Absolute Neutrophils 4.2 Absolute Lymphocytes 2.0 Absolute Monocytes 0.8 Absolute Eosinophils 0.3 Absolute Basophils 0.1 Sodium 141.6 Potassium 4.6 Chloride 103 Carbon Dioxide 26 Anion Gap 13 BUN 28 H Creatinine 1.74 H Est GFR ( Amer) 49 L Est GFR (Non-Af Amer) 41 L Glucose 199 H Calcium 9.2 Impressions: Foot X-Ray 05/01/17 14:36 IMPRESSION: PATIENT WITH PRIOR HEALED 4TH AND 5TH METATARSAL FRACTURES WITH SHAGGY APPEARANCE INVOLVING THE FRACTURE SITES WHICH COULD REPRESENT SEQUELA OF THE PRIOR HEALING OR SUPERIMPOSED OSTEOMYELITIS GIVEN PATIENT'S HISTORY OF ULCERATION. MRI IS FOR FURTHER EVALUATION CLINICALLY INDICATED. Lower Extremity MRI 05/01/17 15:51 IMPRESSION: Ulcer over the base of the 5th metatarsal with bony cortical with erosion and abnormal marrow signal in the proximal 2/3 of the 5th metatarsal compatible with osteomyelitis. Guidance Fluoroscopy 05/05/17 00:00 IMPRESSION: Please see combined report for performance of procedure and radiologic supervision and interpretation. Interventional Vascular Procedure 05/05/17 00:00 IMPRESSION: Please see combined report for performance of procedure and radiologic supervision and interpretation. PICC Line Insertion 05/05/17 00:00 IMPRESSION: SUCCESSFUL PLACEMENT OF A 5 FR dual LUMEN 39 CM PICC IN THE basilic VEIN. Assessment & Plan - Diagnosis (1) Diabetic foot infection Is this a current diagnosis for this admission?: Yes Plan: Patient had an MRI that shows osteomyelitis. General surgery performed removal of the right fifth metatarsal ray. We will continue with antibiotics and wound VAC. Patient is currently on Augmentin and Levaquin.. Patient has polymicrobial bacterial growth from cultures. (2) Hypertension Qualifiers: Hypertension type: essential hypertension Qualified Code(s): I10 - Essential (primary) hypertension Is this a current diagnosis for this admission?: Yes Plan: Blood pressure is improved on Norvasc. (3) Uncontrolled type 2 diabetes mellitus Qualifiers: Diabetes mellitus complication status: with unspecified complications Diabetes mellitus laborer marine terminal insulin use: without laborer marine terminal use Qualified Code( s): E11.8 - Type 2 diabetes mellitus with unspecified complications; E11.65 - Type 2 diabetes mellitus with hyperglycemia; E11.65 - Type 2 diabetes mellitus with hyperglycemia; E11.65 - Type 2 diabetes mellitus with hyperglycemia; E11.65 - Type 2 diabetes mellitus with hyperglycemia Is this a current diagnosis for this admission?: Yes Plan: Will continue the Lantus and continue sliding scale insulin. (4) Hyperlipidemia Is this a current diagnosis for this admission?: Yes (5) Peripheral neuropathy Is this a current diagnosis for this admission?: Yes Plan: We will continue gabapentin. - Time Time Spent with patient: 15-24 minutes - Inpatient Certification Medical Necessity: Need Close Monitoring Due to Risk of Patient Decompensation
[2017-05-17] MEDS: ZOLPIDEM TARTRATE 5 MG TABLET PO PRN (21:13)
[2017-05-17] MEDS: INSULIN GLARGINE,HUM.REC.ANLOG 300 UNIT/3 ML INSULN.PEN SUBCUT SCH (21:16)
[2017-05-18] MEDS: OXYCODONE HCL IR 5 MG TABLET PO PRN ×4 (05:39→20:11)
[2017-05-18] MEDS: GABAPENTIN 300 MG CAPSULE PO SCH ×3 (05:39→22:52)
[2017-05-18] MEDS: AMOXICILLIN TR/POT CLAVULANATE 500-125 MG TAB PO SCH (05:39)
[2017-05-18] MEDS: LANSOPRAZOLE 30 MG TAB.RAP.DR PO SCH ×2 (05:39→17:36)
[2017-05-18] MEDS: FAMOTIDINE 20 MG TABLET PO SCH ×2 (09:32→22:52)
[2017-05-18] MEDS: AMLODIPINE BESYLATE 10 MG TABLET PO SCH (09:32)
[2017-05-18] MEDS: ENOXAPARIN SODIUM INJ 40 MG/0.4 ML DISP.SYRIN SUBCUT SCH (09:33)
[2017-05-18] MEDS: NORMAL SALINE 10 ML SDV (SCHEDULED) IV SCH ×2 (09:33→22:52)
[2017-05-18] MEDS: LEVOFLOXACIN 750 MG TABLET PO SCH (09:33)
[2017-05-18] MEDS: DOCUSATE SODIUM 100 MG CAPSULE PO SCH (09:33)
[2017-05-18] MEDS: HALOPERIDOL 2 MG TABLET PO SCH ×2 (09:33→22:52)
--- NOTE | 2017-05-18 10:42 | PDOC PROGRESS REPORT ---
Subjective Progress Note for:: 05/18/17 Subjective:: Denies any complaints Physical Exam Vital Signs: Temp Pulse Resp BP Pulse Ox 98.6 F 75 20 144/66 H 99 05/18/17 00:00 05/18/17 00:00 05/18/17 00:00 05/18/17 00:00 05/18/17 00:00 Intake & Output 05/17/17 05/18/17 05/19/17 06:59 06:59 06:59 Intake Total 904 910 Output Total 150 Balance 904 910 -150 General appearance: PRESENT: no acute distress Eye exam: PRESENT: conjunctiva pink. ABSENT: scleral icterus Mouth exam: PRESENT: moist, tongue midline Neck exam: ABSENT: JVD Respiratory exam: PRESENT: clear to auscultation manuel. ABSENT: rales, rhonchi, wheezes Cardiovascular exam: PRESENT: RRR. ABSENT: diastolic murmur, rubs, systolic murmur GI/Abdominal exam: PRESENT: normal bowel sounds, soft. ABSENT: distended, guarding, mass, organolmegaly, rebound, tenderness Extremities exam: PRESENT: other - Wound VAC in place in the right foot.. ABSENT: calf tenderness, clubbing, pedal edema Neurological exam: PRESENT: alert, awake, oriented to person, oriented to place , oriented to time, oriented to situation, CN II-XII grossly intact. ABSENT: motor sensory deficit Psychiatric exam: PRESENT: appropriate affect Skin exam: PRESENT: other - Wound VAC in place on the right lateral foot. Results Laboratory Results: 05/17/17 06:00 05/17/17 06:00 Impressions: Foot X-Ray 05/01/17 14:36 IMPRESSION: PATIENT WITH PRIOR HEALED 4TH AND 5TH METATARSAL FRACTURES WITH SHAGGY APPEARANCE INVOLVING THE FRACTURE SITES WHICH COULD REPRESENT SEQUELA OF THE PRIOR HEALING OR SUPERIMPOSED OSTEOMYELITIS GIVEN PATIENT'S HISTORY OF ULCERATION. MRI IS FOR FURTHER EVALUATION CLINICALLY INDICATED. Lower Extremity MRI 05/01/17 15:51 IMPRESSION: Ulcer over the base of the 5th metatarsal with bony cortical with erosion and abnormal marrow signal in the proximal 2/3 of the 5th metatarsal compatible with osteomyelitis. Guidance Fluoroscopy 05/05/17 00:00 IMPRESSION: Please see combined report for performance of procedure and radiologic supervision and interpretation. Interventional Vascular Procedure 05/05/17 00:00 IMPRESSION: Please see combined report for performance of procedure and radiologic supervision and interpretation. PICC Line Insertion 05/05/17 00:00 IMPRESSION: SUCCESSFUL PLACEMENT OF A 5 FR dual LUMEN 39 CM PICC IN THE basilic VEIN. Assessment & Plan - Diagnosis (1) Diabetic foot infection Is this a current diagnosis for this admission?: Yes Plan: Patient had an MRI that shows osteomyelitis. General surgery performed removal of the right fifth metatarsal ray. We will continue with antibiotics and wound VAC. Patient is currently on Augmentin and Levaquin.. Patient has polymicrobial bacterial growth from cultures. (2) Hypertension Qualifiers: Hypertension type: essential hypertension Qualified Code(s): I10 - Essential (primary) hypertension Is this a current diagnosis for this admission?: Yes Plan: Blood pressure is improved on Norvasc. (3) Uncontrolled type 2 diabetes mellitus Qualifiers: Diabetes mellitus complication status: with unspecified complications Diabetes mellitus exterminator helper insulin use: without exterminator helper use Qualified Code( s): E11.8 - Type 2 diabetes mellitus with unspecified complications; E11.65 - Type 2 diabetes mellitus with hyperglycemia; E11.65 - Type 2 diabetes mellitus with hyperglycemia; E11.65 - Type 2 diabetes mellitus with hyperglycemia; E11.65 - Type 2 diabetes mellitus with hyperglycemia Is this a current diagnosis for this admission?: Yes Plan: Will continue the Lantus and continue sliding scale insulin. (4) Hyperlipidemia Is this a current diagnosis for this admission?: Yes (5) Peripheral neuropathy Is this a current diagnosis for this admission?: Yes Plan: We will continue gabapentin. - Time Time Spent with patient: 25-34 minutes - Inpatient Certification Medical Necessity: Need Close Monitoring Due to Risk of Patient Decompensation - Plan Summary Plan Summary: The patient was homeless prior to presentation. He has a wound VAC and cannot be sent onto the street with a wound VAC. Discharge planning is following the patient.
[2017-05-18] MEDS: INSULIN LISPRO 100 UNIT/ML 3 ML VIAL SUBCUT PRN ×3 (11:52→22:58)
[2017-05-18] MEDS: ACETAMINOPHEN 325 MG TABLET PO PRN (16:00)
[2017-05-18] MEDS: INSULIN GLARGINE,HUM.REC.ANLOG 300 UNIT/3 ML INSULN.PEN SUBCUT SCH (22:53)
[2017-05-19] MEDS: LANSOPRAZOLE 30 MG TAB.RAP.DR PO SCH ×2 (05:10→16:23)
[2017-05-19] MEDS: GABAPENTIN 300 MG CAPSULE PO SCH ×3 (05:10→22:11)
[2017-05-19 05:53] LABS: ABSOLUTE BASOPHILS # (AUTO) 0.1 10^3/uL (0.0-0.2); ABSOLUTE EOSINOPHILS # (AUTO) 0.3 10^3/uL (0.0-0.6); ABSOLUTE LYMPHOCYTES (AUTO) 2.4 10^3/uL (0.5-4.7); ABSOLUTE MONOCYTES (AUTO) 0.6 10^3/uL (0.1-1.4); ABSOLUTE NEUT (AUTO) 2.9 10^3/uL (1.7-8.2); EOSINOPHILS % (AUTO) 4.3 % (0-6); HEMATOCRIT 33.6 % (37.9-51.0); HEMOGLOBIN 11.1 g/dL (13.5-17.0); LYMPHOCYTES % (AUTO) 37.7 % (13-45); MEAN CORPUSCULAR HEMOGLOBIN 29.2 pg (27.0-33.4); MEAN CORPUSCULAR VOLUME 89 fl (80-97); MONOCYTES % (AUTO) 9.9 % (3-13); PLATELET COUNT 311 10^3/uL (150-450); RED CELL DISTRIBUTION WIDTH 13.8 % (11.5-14.0); SEGMENTED NEUTROPHILS % (AUTO) 47.1 % (42-78); TOTAL CELLS COUNTED % (AUTO) 100 %; WHITE BLOOD COUNT 6.2 10^3/uL (4.0-10.5)
[2017-05-19 06:08] LABS: ANION GAP 12 (5-19); BLOOD UREA NITROGEN 28 mg/dL (7-20); CALCIUM 9.6 mg/dL (8.4-10.2); CARBON DIOXIDE 27 mmol/L (22-30); CHLORIDE 103 mmol/L (98-107); GLUCOSE 164 mg/dL (75-110); POTASSIUM 4.5 mmol/L (3.6-5.0); SODIUM 141.7 mmol/L (137-145)
[2017-05-19] MEDS: DOCUSATE SODIUM 100 MG CAPSULE PO SCH (10:02)
[2017-05-19] MEDS: AMLODIPINE BESYLATE 10 MG TABLET PO SCH (10:02)
[2017-05-19] MEDS: LEVOFLOXACIN 750 MG TABLET PO SCH (10:02)
[2017-05-19] MEDS: ENOXAPARIN SODIUM INJ 40 MG/0.4 ML DISP.SYRIN SUBCUT SCH (10:02)
[2017-05-19] MEDS: FAMOTIDINE 20 MG TABLET PO SCH ×2 (10:02→22:12)
[2017-05-19] MEDS: HALOPERIDOL 2 MG TABLET PO SCH ×2 (10:02→22:13)
[2017-05-19] MEDS: NORMAL SALINE 10 ML SDV (SCHEDULED) IV SCH ×2 (10:02→22:13)
[2017-05-19] MEDS: OXYCODONE HCL IR 5 MG TABLET PO PRN ×3 (10:10→22:12)
--- NOTE | 2017-05-19 11:16 | PDOC PROGRESS REPORT ---
Subjective Progress Note for:: 05/19/17 Subjective:: This is a follow-up visit for diabetic foot ulcer. Patient is status post amputation with wound VAC. Currently has no complaints. The physical therapist is also here to start working with him. No acute events overnight. Reason For Visit: DIABETIC FOOT ULCER Physical Exam Vital Signs: Temp Pulse Resp BP Pulse Ox 98.7 F 63 20 136/71 H 98 05/19/17 00:00 05/19/17 00:00 05/19/17 00:00 05/19/17 00:00 05/19/17 00:00 Intake & Output 05/18/17 05/19/17 05/20/17 06:59 06:59 06:59 Intake Total 1132 732 Output Total 0 630 Balance 1132 102 GENERAL: This is a well-developed and nourished appearing -[place] male resting in his recliner currently in no acute distress. HEART: Regular rate and rhythm. No murmurs, rubs or gallops. LUNGS: Clear to auscultation bilaterally with equal rise and fall of the chest. ABDOMEN: Soft, nontender, nondistended with normoactive bowel sounds EXTREMETIES: No clubbing, cyanosis. 1+ edema of the right foot. Wound VAC on the right foot is in place. NEURO: Awake, alert and oriented 3. Cranial nerves II through XII are grossly intact. Observed with physical therapy. Patient ambulates with walker and nonweightbearing status. He seems stable with ambulation Results Laboratory Results: 05/19/17 05:10 05/19/17 05:10 05/19/17 05/19/17 05:10 05:10 WBC 6.2 RBC 3.80 L Hgb 11.1 L Hct 33.6 L MCV 89 MCH 29.2 MCHC 33.0 RDW 13.8 Plt Count 311 Seg Neutrophils % 47.1 Lymphocytes % 37.7 Monocytes % 9.9 Eosinophils % 4.3 Basophils % 1.0 Absolute Neutrophils 2.9 Absolute Lymphocytes 2.4 Absolute Monocytes 0.6 Absolute Eosinophils 0.3 Absolute Basophils 0.1 Sodium 141.7 Potassium 4.5 Chloride 103 Carbon Dioxide 27 Anion Gap 12 BUN 28 H Creatinine 1.74 H Est GFR ( Amer) 49 L Est GFR (Non-Af Amer) 41 L Glucose 164 H Calcium 9.6 Impressions: Foot X-Ray 05/01/17 14:36 IMPRESSION: PATIENT WITH PRIOR HEALED 4TH AND 5TH METATARSAL FRACTURES WITH SHAGGY APPEARANCE INVOLVING THE FRACTURE SITES WHICH COULD REPRESENT SEQUELA OF THE PRIOR HEALING OR SUPERIMPOSED OSTEOMYELITIS GIVEN PATIENT'S HISTORY OF ULCERATION. MRI IS FOR FURTHER EVALUATION CLINICALLY INDICATED. Lower Extremity MRI 05/01/17 15:51 IMPRESSION: Ulcer over the base of the 5th metatarsal with bony cortical with erosion and abnormal marrow signal in the proximal 2/3 of the 5th metatarsal compatible with osteomyelitis. Guidance Fluoroscopy 05/05/17 00:00 IMPRESSION: Please see combined report for performance of procedure and radiologic supervision and interpretation. Interventional Vascular Procedure 05/05/17 00:00 IMPRESSION: Please see combined report for performance of procedure and radiologic supervision and interpretation. PICC Line Insertion 05/05/17 00:00 IMPRESSION: SUCCESSFUL PLACEMENT OF A 5 FR dual LUMEN 39 CM PICC IN THE basilic VEIN. 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 Wound VAC is in place. Continue Levaquin and Augmentin based on susceptibilities of the wound culture. (2) Hyperlipidemia Is this a current diagnosis for this admission?: Yes (3) Hypertension Qualifiers: Hypertension type: essential hypertension Qualified Code(s): I10 - Essential (primary) hypertension Is this a current diagnosis for this admission?: Yes Plan: Continue Norvasc. Patient still has some highs. Add on HCTZ. (4) Uncontrolled type 2 diabetes mellitus Qualifiers: Diabetes mellitus complication status: with unspecified complications Diabetes mellitus grails web application developer insulin use: without longterm use Qualified Code( s): E11.8 - Type 2 diabetes mellitus with unspecified complications; E11.65 - Type 2 diabetes mellitus with hyperglycemia; E11.65 - Type 2 diabetes mellitus with hyperglycemia; E11.65 - Type 2 diabetes mellitus with hyperglycemia; E11.65 - Type 2 diabetes mellitus with hyperglycemia Is this a current diagnosis for this admission?: Yes Plan: Continue sliding scale insulin. Continue Lantus at 25 daily. Blood sugars are running higher in the afternoon than in the morning. Monitor another day and then adjust as appropriate. (5) Acute renal failure Is this a current diagnosis for this admission?: Yes Plan: Encourage p.o. Fluids. Continue to monitor (6) Acute pain Is this a current diagnosis for this admission?: Yes Plan: Patient has acute pain after his amputation. As needed pain medications as ordered. - Time Time Spent with patient: 15-24 minutes
[2017-05-19] MEDS: INSULIN LISPRO 100 UNIT/ML 3 ML VIAL SUBCUT PRN ×2 (11:32→16:24)
[2017-05-19] MEDS: INSULIN GLARGINE,HUM.REC.ANLOG 300 UNIT/3 ML INSULN.PEN SUBCUT SCH (22:13)
[2017-05-20] MEDS: OXYCODONE HCL IR 5 MG TABLET PO PRN ×4 (05:23→21:45)
[2017-05-20] MEDS: LANSOPRAZOLE 30 MG TAB.RAP.DR PO SCH ×2 (05:23→18:18)
[2017-05-20] MEDS: LACTULOSE SYRUP 20 GM/30 ML UDCUP PO PRN (05:23)
[2017-05-20] MEDS: GABAPENTIN 300 MG CAPSULE PO SCH ×3 (05:23→21:46)
[2017-05-20] MEDS: FAMOTIDINE 20 MG TABLET PO SCH ×2 (10:01→21:46)
[2017-05-20] MEDS: AMLODIPINE BESYLATE 10 MG TABLET PO SCH (10:01)
[2017-05-20] MEDS: DOCUSATE SODIUM 100 MG CAPSULE PO SCH (10:01)
[2017-05-20] MEDS: LEVOFLOXACIN 750 MG TABLET PO SCH (10:01)
[2017-05-20] MEDS: HYDROCHLOROTHIAZIDE 12.5 MG CAPSULE PO SCH (10:01)
[2017-05-20] MEDS: HALOPERIDOL 2 MG TABLET PO SCH ×2 (10:01→21:44)
[2017-05-20] MEDS: NORMAL SALINE 10 ML SDV (SCHEDULED) IV SCH ×2 (10:02→21:47)
[2017-05-20] MEDS: ENOXAPARIN SODIUM INJ 40 MG/0.4 ML DISP.SYRIN SUBCUT SCH (10:05)
[2017-05-20] MEDS: INSULIN LISPRO 100 UNIT/ML 3 ML VIAL SUBCUT PRN ×3 (12:04→21:43)
--- NOTE | 2017-05-20 16:37 | PDOC PROGRESS REPORT ---
Subjective Progress Note for:: 05/20/17 Subjective:: This is a follow-up visit for diabetic foot ulcer. Patient is status post amputation with wound VAC. He complains of having bed alarms. No acute events overnight. Reason For Visit: DIABETIC FOOT ULCER Physical Exam Vital Signs: Temp Pulse Resp BP Pulse Ox 98.6 F 69 14 176/82 H 99 05/20/17 11:57 05/20/17 11:57 05/20/17 11:57 05/20/17 11:57 05/20/17 11:57 Intake & Output 05/19/17 05/20/17 05/21/17 06:59 06:59 06:59 Intake Total 732 794 236 Output Total 630 650 Balance 102 144 236 GENERAL: This is a well-developed and nourished appearing -[place] male resting in his recliner currently in no acute distress. HEART: Regular rate and rhythm. No murmurs, rubs or gallops. LUNGS: Clear to auscultation bilaterally with equal rise and fall of the chest. ABDOMEN: Soft, nontender, nondistended with normoactive bowel sounds EXTREMETIES: No clubbing, cyanosis. 1+ edema of the right foot. Wound VAC on the right foot is in place. NEURO: Awake, alert and oriented 3. Cranial nerves II through XII are grossly intact. Results Laboratory Results: 05/19/17 05:10 05/19/17 05:10 Impressions: Foot X-Ray 05/01/17 14:36 IMPRESSION: PATIENT WITH PRIOR HEALED 4TH AND 5TH METATARSAL FRACTURES WITH SHAGGY APPEARANCE INVOLVING THE FRACTURE SITES WHICH COULD REPRESENT SEQUELA OF THE PRIOR HEALING OR SUPERIMPOSED OSTEOMYELITIS GIVEN PATIENT'S HISTORY OF ULCERATION. MRI IS FOR FURTHER EVALUATION CLINICALLY INDICATED. Lower Extremity MRI 05/01/17 15:51 IMPRESSION: Ulcer over the base of the 5th metatarsal with bony cortical with erosion and abnormal marrow signal in the proximal 2/3 of the 5th metatarsal compatible with osteomyelitis. Guidance Fluoroscopy 05/05/17 00:00 IMPRESSION: Please see combined report for performance of procedure and radiologic supervision and interpretation. Interventional Vascular Procedure 05/05/17 00:00 IMPRESSION: Please see combined report for performance of procedure and radiologic supervision and interpretation. PICC Line Insertion 05/05/17 00:00 IMPRESSION: SUCCESSFUL PLACEMENT OF A 5 FR dual LUMEN 39 CM PICC IN THE basilic VEIN. 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 Wound VAC is in place. Continue Levaquin and Augmentin based on susceptibilities of the wound culture. (2) Hyperlipidemia Is this a current diagnosis for this admission?: Yes (3) Hypertension Qualifiers: Hypertension type: essential hypertension Qualified Code(s): I10 - Essential (primary) hypertension Is this a current diagnosis for this admission?: Yes Plan: Continue Norvasc and HCTZ. Add metoprolol. (4) Uncontrolled type 2 diabetes mellitus Qualifiers: Diabetes mellitus complication status: with unspecified complications Diabetes mellitus terminal gauger insulin use: without penitentiary use Qualified Code( s): E11.8 - Type 2 diabetes mellitus with unspecified complications; E11.65 - Type 2 diabetes mellitus with hyperglycemia; E11.65 - Type 2 diabetes mellitus with hyperglycemia; E11.65 - Type 2 diabetes mellitus with hyperglycemia; E11.65 - Type 2 diabetes mellitus with hyperglycemia Is this a current diagnosis for this admission?: Yes Plan: Continue sliding scale insulin. Continue Lantus at 25 daily. (5) Acute renal failure Is this a current diagnosis for this admission?: Yes Plan: Encourage p.o. Fluids. Continue to monitor (6) Acute pain Is this a current diagnosis for this admission?: Yes Plan: Patient has acute pain after his amputation. As needed pain medications as ordered. - Time Time Spent with patient: 15-24 minutes
[2017-05-20] MEDS: INSULIN GLARGINE,HUM.REC.ANLOG 300 UNIT/3 ML INSULN.PEN SUBCUT SCH (21:43)
[2017-05-20] MEDS: METOPROLOL SUCCINATE 25 MG TAB.SR.24H PO SCH (21:45)
[2017-05-20] MEDS: ZOLPIDEM TARTRATE 5 MG TABLET PO PRN (23:20)
[2017-05-21] MEDS: GABAPENTIN 300 MG CAPSULE PO SCH ×3 (05:56→22:13)
[2017-05-21] MEDS: LANSOPRAZOLE 30 MG TAB.RAP.DR PO SCH ×2 (05:56→17:43)
[2017-05-21] MEDS: LACTULOSE SYRUP 20 GM/30 ML UDCUP PO PRN (06:00)
[2017-05-21] MEDS: INSULIN LISPRO 100 UNIT/ML 3 ML VIAL SUBCUT PRN ×4 (08:16→22:11)
[2017-05-21] MEDS: HYDROCHLOROTHIAZIDE 12.5 MG CAPSULE PO SCH (08:16)
[2017-05-21] MEDS: METOPROLOL SUCCINATE 25 MG TAB.SR.24H PO SCH ×2 (09:40→22:11)
[2017-05-21] MEDS: NORMAL SALINE 10 ML SDV (SCHEDULED) IV SCH ×2 (09:41→22:14)
[2017-05-21] MEDS: NORMAL SALINE 10 ML SDV (AFTER EACH USE) IV PRN (09:41)
[2017-05-21] MEDS: LEVOFLOXACIN 750 MG TABLET PO SCH (09:42)
[2017-05-21] MEDS: DOCUSATE SODIUM 100 MG CAPSULE PO SCH (09:43)
[2017-05-21] MEDS: FAMOTIDINE 20 MG TABLET PO SCH ×2 (09:43→22:13)
[2017-05-21] MEDS: HALOPERIDOL 2 MG TABLET PO SCH ×2 (09:43→22:13)
[2017-05-21] MEDS: AMLODIPINE BESYLATE 10 MG TABLET PO SCH (09:43)
[2017-05-21] MEDS: ENOXAPARIN SODIUM INJ 40 MG/0.4 ML DISP.SYRIN SUBCUT SCH (09:44)
--- NOTE | 2017-05-21 14:55 | PDOC PROGRESS REPORT ---
Subjective Progress Note for:: 05/21/17 Subjective:: No new events overnight. Patient reports that he is up walking with a walker and making some progress down the [address], able to put some weight on the affected foot now more so than ever. He denies any chest pain, palpitations, fever, chills, worsening pain in the foot, numbness or tingling. ROS: All systems reviewed, see above, remaining systems negative. Reason For Visit: DIABETIC FOOT ULCER Physical Exam Vital Signs: Temp Pulse Resp BP Pulse Ox 98.3 F 64 16 146/71 H 100 05/21/17 11:51 05/21/17 11:51 05/21/17 11:51 05/21/17 11:51 05/21/17 11:51 Intake & Output 05/20/17 05/21/17 05/22/17 06:59 06:59 06:59 Intake Total 794 1086 Output Total 650 1500 Balance 144 -414 Weight 87.5 kg General appearance: PRESENT: no acute distress, well-developed, well-nourished Head exam: PRESENT: atraumatic Eye exam: PRESENT: EOMI, PERRLA Mouth exam: PRESENT: moist Neck exam: PRESENT: full ROM. ABSENT: tenderness Respiratory exam: PRESENT: clear to auscultation manuel. ABSENT: accessory muscle use Cardiovascular exam: PRESENT: RRR. ABSENT: systolic murmur Pulses: PRESENT: normal radial pulses GI/Abdominal exam: PRESENT: normal bowel sounds, soft. ABSENT: tenderness Extremities exam: PRESENT: +1 edema - Right foot Neurological exam: PRESENT: alert, awake, oriented to person, oriented to place , oriented to time, oriented to situation Psychiatric exam: PRESENT: appropriate affect, normal mood Skin exam: PRESENT: warm, other - Wound VAC in place with a scant amount of sanguinous material present Results Laboratory Results: 05/19/17 05:10 05/19/17 05:10 Assessment & Plan - Diagnosis (1) Diabetic foot infection Is this a current diagnosis for this admission?: Yes (2) Acute pain Is this a current diagnosis for this admission?: Yes (3) Acute renal failure Is this a current diagnosis for this admission?: Yes (4) Hyperlipidemia Is this a current diagnosis for this admission?: Yes (5) Hypertension Qualifiers: Hypertension type: essential hypertension Qualified Code(s): I10 - Essential (primary) hypertension Is this a current diagnosis for this admission?: Yes (6) Uncontrolled type 2 diabetes mellitus Qualifiers: Diabetes mellitus complication status: with unspecified complications Diabetes mellitus usp insulin use: without termite technician use Qualified Code( s): E11.8 - Type 2 diabetes mellitus with unspecified complications; E11.65 - Type 2 diabetes mellitus with hyperglycemia; E11.65 - Type 2 diabetes mellitus with hyperglycemia; E11.65 - Type 2 diabetes mellitus with hyperglycemia; E11.65 - Type 2 diabetes mellitus with hyperglycemia Is this a current diagnosis for this admission?: Yes - Time Time Spent with patient: Less than 15 minutes - Plan Summary Plan Summary: Continue current antibiotics, continue current wound care including wound VAC, continue current level of care. Apparently he is awaiting placement.
[2017-05-21] MEDS: OXYCODONE HCL IR 5 MG TABLET PO PRN (22:11)
[2017-05-21] MEDS: INSULIN GLARGINE,HUM.REC.ANLOG 300 UNIT/3 ML INSULN.PEN SUBCUT SCH (22:11)
[2017-05-21] MEDS: ZOLPIDEM TARTRATE 5 MG TABLET PO PRN (22:12)
[2017-05-22] MEDS: GABAPENTIN 300 MG CAPSULE PO SCH ×3 (06:16→21:34)
[2017-05-22] MEDS: LANSOPRAZOLE 30 MG TAB.RAP.DR PO SCH ×2 (06:17→16:20)
[2017-05-22] MEDS: METOPROLOL SUCCINATE 25 MG TAB.SR.24H PO SCH ×2 (09:04→21:34)
[2017-05-22] MEDS: FAMOTIDINE 20 MG TABLET PO SCH ×2 (09:04→21:33)
[2017-05-22] MEDS: HALOPERIDOL 2 MG TABLET PO SCH ×2 (09:04→21:34)
[2017-05-22] MEDS: DOCUSATE SODIUM 100 MG CAPSULE PO SCH (09:05)
[2017-05-22] MEDS: HYDROCHLOROTHIAZIDE 12.5 MG CAPSULE PO SCH (09:05)
[2017-05-22] MEDS: AMLODIPINE BESYLATE 10 MG TABLET PO SCH (09:05)
[2017-05-22] MEDS: ENOXAPARIN SODIUM INJ 40 MG/0.4 ML DISP.SYRIN SUBCUT SCH (09:06)
[2017-05-22] MEDS: NORMAL SALINE 10 ML SDV (SCHEDULED) IV SCH ×2 (09:06→21:34)
[2017-05-22] MEDS: OXYCODONE HCL IR 5 MG TABLET PO PRN ×3 (09:14→21:34)
--- NOTE | 2017-05-22 15:26 | PDOC PROGRESS REPORT ---
Subjective Progress Note for:: 05/22/17 Subjective:: This is a follow-up visit for diabetic foot ulcer. Patient is status post amputation with wound VAC. He has no complaints today. Reason For Visit: DIABETIC FOOT ULCER Physical Exam Vital Signs: Temp Pulse Resp BP Pulse Ox 98.1 F 56 L 12 151/73 H 100 05/22/17 11:30 05/22/17 11:30 05/22/17 11:30 05/22/17 11:30 05/22/17 11:30 Intake & Output 05/21/17 05/22/17 05/23/17 06:59 06:59 06:59 Intake Total 1086 890 Output Total 1500 500 Balance -414 390 Weight 87.5 kg GENERAL: This is a well-developed and nourished appearing -Macedonian male resting in his recliner currently in no acute distress. HEART: Regular rate and rhythm. No murmurs, rubs or gallops. LUNGS: Clear to auscultation bilaterally with equal rise and fall of the chest. ABDOMEN: Soft, nontender, nondistended with normoactive bowel sounds EXTREMETIES: No clubbing, cyanosis. 1+ edema of the right foot. Wound VAC on the right foot is in place. Pulses 2+ NEURO: Awake, alert and oriented 3. Cranial nerves II through XII are grossly intact. Results Laboratory Results: 05/19/17 05:10 05/19/17 05:10 Impressions: Foot X-Ray 05/01/17 14:36 IMPRESSION: PATIENT WITH PRIOR HEALED 4TH AND 5TH METATARSAL FRACTURES WITH SHAGGY APPEARANCE INVOLVING THE FRACTURE SITES WHICH COULD REPRESENT SEQUELA OF THE PRIOR HEALING OR SUPERIMPOSED OSTEOMYELITIS GIVEN PATIENT'S HISTORY OF ULCERATION. MRI IS FOR FURTHER EVALUATION CLINICALLY INDICATED. Lower Extremity MRI 05/01/17 15:51 IMPRESSION: Ulcer over the base of the 5th metatarsal with bony cortical with erosion and abnormal marrow signal in the proximal 2/3 of the 5th metatarsal compatible with osteomyelitis. Guidance Fluoroscopy 05/05/17 00:00 IMPRESSION: Please see combined report for performance of procedure and radiologic supervision and interpretation. Interventional Vascular Procedure 05/05/17 00:00 IMPRESSION: Please see combined report for performance of procedure and radiologic supervision and interpretation. PICC Line Insertion 05/05/17 00:00 IMPRESSION: SUCCESSFUL PLACEMENT OF A 5 FR dual LUMEN 39 CM PICC IN THE basilic VEIN. 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 Wound VAC is in place. Continue Levaquin and Augmentin based on susceptibilities of the wound culture. Patient will be able to discontinue antibiotics after 14 days (2) Hyperlipidemia Is this a current diagnosis for this admission?: Yes (3) Hypertension Qualifiers: Hypertension type: essential hypertension Qualified Code(s): I10 - Essential (primary) hypertension Is this a current diagnosis for this admission?: Yes Plan: Continue Norvasc and HCTZ and metoprolol. 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 Continue Lantus at 25 daily. (5) Acute renal failure Is this a current diagnosis for this admission?: Yes Plan: Encourage p.o. Fluids. Continue to monitor. Resolved (6) Acute pain Is this a current diagnosis for this admission?: Yes Plan: Patient has acute pain after his amputation. As needed pain medications as ordered. - Time Time Spent with patient: 15-24 minutes
[2017-05-22] MEDS: INSULIN LISPRO 100 UNIT/ML 3 ML VIAL SUBCUT PRN ×2 (17:28→21:34)
[2017-05-22] MEDS: ZOLPIDEM TARTRATE 5 MG TABLET PO PRN (21:34)
[2017-05-22] MEDS: INSULIN GLARGINE,HUM.REC.ANLOG 300 UNIT/3 ML INSULN.PEN SUBCUT SCH (21:35)
[2017-05-23] MEDS: LANSOPRAZOLE 30 MG TAB.RAP.DR PO SCH ×2 (06:34→16:40)
[2017-05-23] MEDS: OXYCODONE HCL IR 5 MG TABLET PO PRN ×3 (06:34→21:21)
[2017-05-23] MEDS: GABAPENTIN 300 MG CAPSULE PO SCH ×3 (06:34→21:20)
[2017-05-23] MEDS: DOCUSATE SODIUM 100 MG CAPSULE PO SCH (09:07)
[2017-05-23] MEDS: FAMOTIDINE 20 MG TABLET PO SCH ×2 (09:07→21:20)
[2017-05-23] MEDS: AMLODIPINE BESYLATE 10 MG TABLET PO SCH (09:07)
[2017-05-23] MEDS: HALOPERIDOL 2 MG TABLET PO SCH ×2 (09:07→21:20)
[2017-05-23] MEDS: METOPROLOL SUCCINATE 25 MG TAB.SR.24H PO SCH ×2 (09:07→21:20)
[2017-05-23] MEDS: NORMAL SALINE 10 ML SDV (SCHEDULED) IV SCH ×2 (09:08→21:21)
[2017-05-23] MEDS: ENOXAPARIN SODIUM INJ 40 MG/0.4 ML DISP.SYRIN SUBCUT SCH (09:09)
[2017-05-23] MEDS: HYDROCHLOROTHIAZIDE 12.5 MG CAPSULE PO SCH (09:09)
--- NOTE | 2017-05-23 14:31 | PDOC PROGRESS REPORT ---
Subjective Progress Note for:: 05/23/17 Subjective:: Pt states that he is having pain 11/29. Pt states that he wants to having his pain medications increased. Reason For Visit: DIABETIC FOOT ULCER Physical Exam Vital Signs: Temp Pulse Resp BP Pulse Ox 98.3 F 67 16 142/67 H 100 05/23/17 11:39 05/23/17 11:39 05/23/17 11:39 05/23/17 11:39 05/23/17 11:39 Intake & Output 05/22/17 05/23/17 05/24/17 06:59 06:59 06:59 Intake Total 890 880 Output Total 500 300 Balance 390 580 General appearance: PRESENT: no acute distress, well-developed, well-nourished Head exam: PRESENT: atraumatic, normocephalic Eye exam: PRESENT: conjunctival injection Ear exam: PRESENT: normal external ear exam Mouth exam: PRESENT: moist, tongue midline Neck exam: ABSENT: carotid bruit, JVD, lymphadenopathy, thyromegaly Respiratory exam: PRESENT: clear to auscultation manuel. ABSENT: rales, rhonchi, wheezes Cardiovascular exam: PRESENT: RRR. ABSENT: diastolic murmur, rubs, systolic murmur Vascular exam: PRESENT: normal capillary refill GI/Abdominal exam: PRESENT: normal bowel sounds, soft. ABSENT: distended, guarding, mass, organolmegaly, rebound, tenderness Rectal exam: PRESENT: deferred Extremities exam: PRESENT: other - right foot with wound vac in place Neurological exam: PRESENT: alert, altered, awake, oriented to person, oriented to place, oriented to time Skin exam: PRESENT: dry, intact, warm, other - + right foot with dressing change.. ABSENT: cyanosis, rash Results Laboratory Results: 05/19/17 05:10 05/19/17 05:10 Impressions: Foot X-Ray 05/01/17 14:36 IMPRESSION: PATIENT WITH PRIOR HEALED 4TH AND 5TH METATARSAL FRACTURES WITH SHAGGY APPEARANCE INVOLVING THE FRACTURE SITES WHICH COULD REPRESENT SEQUELA OF THE PRIOR HEALING OR SUPERIMPOSED OSTEOMYELITIS GIVEN PATIENT'S HISTORY OF ULCERATION. MRI IS FOR FURTHER EVALUATION CLINICALLY INDICATED. Lower Extremity MRI 05/01/17 15:51 IMPRESSION: Ulcer over the base of the 5th metatarsal with bony cortical with erosion and abnormal marrow signal in the proximal 2/3 of the 5th metatarsal compatible with osteomyelitis. Guidance Fluoroscopy 05/05/17 00:00 IMPRESSION: Please see combined report for performance of procedure and radiologic supervision and interpretation. Interventional Vascular Procedure 05/05/17 00:00 IMPRESSION: Please see combined report for performance of procedure and radiologic supervision and interpretation. PICC Line Insertion 05/05/17 00:00 IMPRESSION: SUCCESSFUL PLACEMENT OF A 5 FR dual LUMEN 39 CM PICC IN THE basilic VEIN. Assessment & Plan - Diagnosis (1) Acute renal failure Is this a current diagnosis for this admission?: Yes Plan: Will check CMP. (2) Diabetic foot infection Is this a current diagnosis for this admission?: Yes Plan: Will continue current treatment. (3) Hypertension Qualifiers: Hypertension type: essential hypertension Qualified Code(s): I10 - Essential (primary) hypertension Is this a current diagnosis for this admission?: Yes Plan: Will continue current medication. Would like to increase medication but no recent BMP. CMP ordered for am. (4) Peripheral neuropathy Is this a current diagnosis for this admission?: Yes Plan: continue current treatment. (5) Uncontrolled type 2 diabetes mellitus Qualifiers: Diabetes mellitus complication status: with unspecified complications Diabetes mellitus [facility] insulin use: without [facility] use Qualified Code( s): E11.8 - Type 2 diabetes mellitus with unspecified complications; E11.65 - Type 2 diabetes mellitus with hyperglycemia; E11.65 - Type 2 diabetes mellitus with hyperglycemia; E11.65 - Type 2 diabetes mellitus with hyperglycemia; E11.65 - Type 2 diabetes mellitus with hyperglycemia Is this a current diagnosis for this admission?: Yes Plan: Lantus 40 units Qdaily and Novolog 3units SQ TID. SSI. - Time Time Spent with patient: 15-24 minutes
[2017-05-23] MEDS: INSULIN LISPRO 100 UNIT/ML 3 ML VIAL SUBCUT SCH (16:40)
[2017-05-23] MEDS: INSULIN LISPRO 100 UNIT/ML 3 ML VIAL SUBCUT PRN ×2 (16:40→21:21)
[2017-05-23] MEDS: ZOLPIDEM TARTRATE 5 MG TABLET PO PRN (21:20)
[2017-05-23] MEDS: INSULIN GLARGINE,HUM.REC.ANLOG 300 UNIT/3 ML INSULN.PEN SUBCUT SCH (21:22)
[2017-05-24] MEDS: GABAPENTIN 300 MG CAPSULE PO SCH ×3 (06:42→21:15)
[2017-05-24] MEDS: OXYCODONE HCL IR 5 MG TABLET PO PRN ×3 (06:42→21:14)
[2017-05-24] MEDS: LANSOPRAZOLE 30 MG TAB.RAP.DR PO SCH ×2 (06:42→17:21)
[2017-05-24 07:00] LABS: ABSOLUTE EOSINOPHILS # (AUTO) 0.4 10^3/uL (0.0-0.6); ABSOLUTE MONOCYTES (AUTO) 0.7 10^3/uL (0.1-1.4); ABSOLUTE NEUT (AUTO) 3.6 10^3/uL (1.7-8.2); BASOPHILS % (AUTO) 0.6 % (0-2); EOSINOPHILS % (AUTO) 5.5 % (0-6); HEMATOCRIT 34.4 % (37.9-51.0); HEMOGLOBIN 11.4 g/dL (13.5-17.0); MEAN CORPUSCULAR HEMOGLOBIN 29.5 pg (27.0-33.4); MEAN CORPUSCULAR VOLUME 89 fl (80-97); MONOCYTES % (AUTO) 10.8 % (3-13); PLATELET COUNT 224 10^3/uL (150-450); RED BLOOD COUNT 3.86 10^6/uL (4.35-5.55); RED CELL DISTRIBUTION WIDTH 14.1 % (11.5-14.0); SEGMENTED NEUTROPHILS % (AUTO) 53.1 % (42-78); TOTAL CELLS COUNTED % (AUTO) 100 %; WHITE BLOOD COUNT 6.7 10^3/uL (4.0-10.5)
[2017-05-24 07:23] LABS: ALANINE AMINOTRANSFERASE 28 U/L (21-72); ALBUMIN 3.4 g/dL (3.5-5.0); ALKALINE PHOSPHATASE 109 U/L (38-126); ANION GAP 11 (5-19); ASPARTATE AMINO TRANSFERASE 14 U/L (17-59); BILIRUBIN,DIRECT 0.3 mg/dL (0.0-0.4); BILIRUBIN,TOTAL 0.3 mg/dL (0.2-1.3); BLOOD UREA NITROGEN 27 mg/dL (7-20); CALCIUM 9.4 mg/dL (8.4-10.2); CARBON DIOXIDE 27 mmol/L (22-30); CHLORIDE 102 mmol/L (98-107); GLUCOSE 366 mg/dL (75-110); POTASSIUM 4.3 mmol/L (3.6-5.0); SODIUM 140.4 mmol/L (137-145); TOTAL PROTEIN 7.1 g/dL (6.3-8.2)
[2017-05-24] MEDS: HYDROCHLOROTHIAZIDE 12.5 MG CAPSULE PO SCH (08:23)
[2017-05-24] MEDS: INSULIN LISPRO 100 UNIT/ML 3 ML VIAL SUBCUT SCH ×3 (08:23→17:21)
[2017-05-24] MEDS: INSULIN LISPRO 100 UNIT/ML 3 ML VIAL SUBCUT PRN ×4 (08:23→21:34)
[2017-05-24] MEDS: DOCUSATE SODIUM 100 MG CAPSULE PO SCH (12:05)
[2017-05-24] MEDS: FAMOTIDINE 20 MG TABLET PO SCH ×2 (12:05→21:15)
[2017-05-24] MEDS: AMLODIPINE BESYLATE 10 MG TABLET PO SCH (12:08)
[2017-05-24] MEDS: NORMAL SALINE 10 ML SDV (SCHEDULED) IV SCH ×2 (12:09→21:16)
[2017-05-24] MEDS: HALOPERIDOL 2 MG TABLET PO SCH ×2 (12:10→21:16)
[2017-05-24] MEDS: METOPROLOL SUCCINATE 25 MG TAB.SR.24H PO SCH ×2 (12:11→21:16)
[2017-05-24] MEDS: ENOXAPARIN SODIUM INJ 40 MG/0.4 ML DISP.SYRIN SUBCUT SCH (12:11)
--- NOTE | 2017-05-24 19:11 | PDOC PROGRESS REPORT ---
Subjective Progress Note for:: 05/24/17 Subjective:: This is a follow-up visit for diabetic foot ulcer. Patient is a diabetic who presented with a diabetic ulcer necessitating amputation of the fifth digit on the right foot. The patient is homeless and had been sleeping in a graveyard prior to presentation. Since he has been here he has had his amputation and is now being treated with a wound VAC. He is on appropriate antibiotics according to susceptibilities. He currently has no complaints. Reason For Visit: DIABETIC FOOT ULCER Physical Exam Vital Signs: Temp Pulse Resp BP Pulse Ox 98.1 F 66 16 159/66 H 99 05/24/17 16:00 05/24/17 16:00 05/24/17 16:00 05/24/17 16:00 05/24/17 16:00 Intake & Output 05/23/17 05/24/17 05/25/17 06:59 06:59 06:59 Intake Total 880 2475 550 Output Total 300 875 2 Balance 580 1600 548 GENERAL: This is a well-developed and nourished appearing -Algerian male resting in his bed currently in no acute distress. HEART: Regular rate and rhythm. No murmurs, rubs or gallops. LUNGS: Clear to auscultation bilaterally with equal rise and fall of the chest. ABDOMEN: Soft, nontender, nondistended with normoactive bowel sounds EXTREMETIES: No clubbing, cyanosis. 1+ edema of the right foot. Wound VAC on the right foot is in place. Pulses 2+ NEURO: Awake, alert and oriented 3. Cranial nerves II through XII are grossly intact. Results Laboratory Results: 05/24/17 06:43 05/24/17 06:43 05/24/17 05/24/17 06:43 06:43 WBC 6.7 RBC 3.86 L Hgb 11.4 L Hct 34.4 L MCV 89 MCH 29.5 MCHC 33.0 RDW 14.1 H Plt Count 224 Seg Neutrophils % 53.1 Lymphocytes % 30.0 Monocytes % 10.8 Eosinophils % 5.5 Basophils % 0.6 Absolute Neutrophils 3.6 Absolute Lymphocytes 2.0 Absolute Monocytes 0.7 Absolute Eosinophils 0.4 Absolute Basophils 0.0 Sodium 140.4 Potassium 4.3 Chloride 102 Carbon Dioxide 27 Anion Gap 11 BUN 27 H Creatinine 1.45 H Est GFR ( Amer) > 60 Est GFR (Non-Af Amer) 50 L Glucose 366 H Calcium 9.4 Total Bilirubin 0.3 AST 14 L ALT 28 Alkaline Phosphatase 109 Total Protein 7.1 Albumin 3.4 L Impressions: Foot X-Ray 05/01/17 14:36 IMPRESSION: PATIENT WITH PRIOR HEALED 4TH AND 5TH METATARSAL FRACTURES WITH SHAGGY APPEARANCE INVOLVING THE FRACTURE SITES WHICH COULD REPRESENT SEQUELA OF THE PRIOR HEALING OR SUPERIMPOSED OSTEOMYELITIS GIVEN PATIENT'S HISTORY OF ULCERATION. MRI IS FOR FURTHER EVALUATION CLINICALLY INDICATED. Lower Extremity MRI 05/01/17 15:51 IMPRESSION: Ulcer over the base of the 5th metatarsal with bony cortical with erosion and abnormal marrow signal in the proximal 2/3 of the 5th metatarsal compatible with osteomyelitis. Guidance Fluoroscopy 05/05/17 00:00 IMPRESSION: Please see combined report for performance of procedure and radiologic supervision and interpretation. Interventional Vascular Procedure 05/05/17 00:00 IMPRESSION: Please see combined report for performance of procedure and radiologic supervision and interpretation. PICC Line Insertion 05/05/17 00:00 IMPRESSION: SUCCESSFUL PLACEMENT OF A 5 FR dual LUMEN 39 CM PICC IN THE basilic VEIN. 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 Wound VAC is in place. All cultures have come back. Change to p.o. medicine Levaquin and Augmentin. (2) Hyperlipidemia Is this a current diagnosis for this admission?: Yes (3) Hypertension Qualifiers: Hypertension type: essential hypertension Qualified Code(s): I10 - Essential (primary) hypertension Is this a current diagnosis for this admission?: Yes Plan: Continue Norvasc. Blood pressures remain high. Will add on 10 of lisinopril. (4) Uncontrolled type 2 diabetes mellitus Qualifiers: Diabetes mellitus complication status: with unspecified complications Diabetes mellitus jail insulin use: without jail use Qualified Code( s): E11.8 - Type 2 diabetes mellitus with unspecified complications; E11.65 - Type 2 diabetes mellitus with hyperglycemia; E11.65 - Type 2 diabetes mellitus with hyperglycemia; E11.65 - Type 2 diabetes mellitus with hyperglycemia; E11.65 - Type 2 diabetes mellitus with hyperglycemia Is this a current diagnosis for this admission?: Yes Plan: Blood sugars have actually been labile. His blood sugars were running quite high prior to amputation and shortly thereafter. Then they began to run low and his insulin was cut in half. Now his blood sugars are trending back up. Lantus is now up to 40. He is on mealtime insulin as well. The patient states that he is just come to recognize that he is been receiving regular juli ifeoma subset of diet juli ifeoma's with his tray. (5) Acute renal failure Is this a current diagnosis for this admission?: Yes Plan: This is better described as acute on chronic kidney failure stage III. The acute portion of the patient's renal failure is resolved. Continue to monitor with addition of lisinopril. (6) Acute pain Is this a current diagnosis for this admission?: Yes Plan: Patient has acute pain after his amputation. As needed pain medications as ordered by surgery (7) Anxiety Plan: Continue Xanax as needed. - Time Time Spent with patient: 15-24 minutes
[2017-05-24] MEDS: ZOLPIDEM TARTRATE 5 MG TABLET PO PRN (21:14)
[2017-05-24] MEDS: INSULIN GLARGINE,HUM.REC.ANLOG 300 UNIT/3 ML INSULN.PEN SUBCUT SCH (21:17)
[2017-05-25] MEDS: LANSOPRAZOLE 30 MG TAB.RAP.DR PO SCH ×2 (05:41→18:29)
[2017-05-25] MEDS: OXYCODONE HCL IR 5 MG TABLET PO PRN ×2 (05:41→19:16)
[2017-05-25] MEDS: GABAPENTIN 300 MG CAPSULE PO SCH ×3 (05:47→21:15)
[2017-05-25] MEDS: FAMOTIDINE 20 MG TABLET PO SCH ×2 (09:35→21:15)
[2017-05-25] MEDS: DOCUSATE SODIUM 100 MG CAPSULE PO SCH (09:36)
[2017-05-25] MEDS: AMLODIPINE BESYLATE 10 MG TABLET PO SCH (09:36)
[2017-05-25] MEDS: HYDROCHLOROTHIAZIDE 12.5 MG CAPSULE PO SCH (09:36)
[2017-05-25] MEDS: METOPROLOL SUCCINATE 25 MG TAB.SR.24H PO SCH ×2 (09:37→21:15)
[2017-05-25] MEDS: HALOPERIDOL 2 MG TABLET PO SCH ×2 (09:37→21:15)
[2017-05-25] MEDS: INSULIN LISPRO 100 UNIT/ML 3 ML VIAL SUBCUT SCH ×3 (09:37→15:42)
[2017-05-25] MEDS: INSULIN LISPRO 100 UNIT/ML 3 ML VIAL SUBCUT PRN ×4 (09:38→21:15)
[2017-05-25] MEDS: ENOXAPARIN SODIUM INJ 40 MG/0.4 ML DISP.SYRIN SUBCUT SCH (09:38)
[2017-05-25] MEDS: NORMAL SALINE 10 ML SDV (SCHEDULED) IV SCH ×2 (09:38→21:15)
--- NOTE | 2017-05-25 15:18 | PDOC PROGRESS REPORT ---
Subjective Progress Note for:: 05/25/17 Subjective:: This is a follow-up visit for diabetic foot ulcer. Patient is a diabetic who presented with a diabetic ulcer necessitating amputation of the fifth digit on the right foot. The patient is homeless and had been sleeping in a graveyard prior to presentation. Since he has been here he has had his amputation and is now being treated with a wound VAC. He is on appropriate antibiotics according to susceptibilities. He currently has no complaints. While is in the room the patient did want to recount his social circumstances. I listen to him. He is quite frustrated that he does not have anywhere to go after his treatments here are done. I explained to him that him being discharged in a homeless state is a matter of reality. I expressed that I hope that we could find other alternatives but that I did not want his discharge today to be the first day he is hearing this, if it happens that way. I have spoken with the patient in this regard before. Once again I have gotten a similar response. The patient states that he has a 9 mm that he can use in the situation. He then says that he is going to "Trent Nubisio "the situation if it happens that way (recall that Trent Casey is a movie about a man who takes physicians and medical staff hostage until his son can get a heart transplant). I did caution the patient about such proclamations. I told him that this would not be the way to go and that the discharge planners are doing everything they can to try and help him. I reminded him that we are all trying to help him in his situation. Prior to my leaving the room the patient was more calm and even made a joke about me needing to going to eat because I am looking listless. Reason For Visit: DIABETIC FOOT ULCER Physical Exam Vital Signs: Temp Pulse Resp BP Pulse Ox 98.2 F 66 18 127/66 H 100 05/25/17 12:00 05/25/17 12:00 05/25/17 12:00 05/25/17 12:00 05/25/17 12:00 Intake & Output 05/24/17 05/25/17 05/26/17 06:59 06:59 06:59 Intake Total 2475 1500 Output Total 875 402 Balance 1600 1098 GENERAL: This is a well-developed and nourished appearing -Niuean male resting in his bed currently in no acute distress. HEART: Regular rate and rhythm. No murmurs, rubs or gallops. LUNGS: Clear to auscultation bilaterally with equal rise and fall of the chest. ABDOMEN: Soft, nontender, nondistended with normoactive bowel sounds EXTREMETIES: No clubbing, cyanosis. 1+ edema of the right foot. Wound VAC on the right foot is in place. Pulses 2+ NEURO: Awake, alert and oriented 3. Cranial nerves II through XII are grossly intact. Results Laboratory Results: 05/24/17 06:43 05/24/17 06:43 Impressions: Foot X-Ray 05/01/17 14:36 IMPRESSION: PATIENT WITH PRIOR HEALED 4TH AND 5TH METATARSAL FRACTURES WITH SHAGGY APPEARANCE INVOLVING THE FRACTURE SITES WHICH COULD REPRESENT SEQUELA OF THE PRIOR HEALING OR SUPERIMPOSED OSTEOMYELITIS GIVEN PATIENT'S HISTORY OF ULCERATION. MRI IS FOR FURTHER EVALUATION CLINICALLY INDICATED. Lower Extremity MRI 05/01/17 15:51 IMPRESSION: Ulcer over the base of the 5th metatarsal with bony cortical with erosion and abnormal marrow signal in the proximal 2/3 of the 5th metatarsal compatible with osteomyelitis. Guidance Fluoroscopy 05/05/17 00:00 IMPRESSION: Please see combined report for performance of procedure and radiologic supervision and interpretation. Interventional Vascular Procedure 05/05/17 00:00 IMPRESSION: Please see combined report for performance of procedure and radiologic supervision and interpretation. PICC Line Insertion 05/05/17 00:00 IMPRESSION: SUCCESSFUL PLACEMENT OF A 5 FR dual LUMEN 39 CM PICC IN THE basilic VEIN. 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 Wound VAC is in place. All cultures have come back. Change to p.o. medicine Levaquin and Augmentin. (2) Hyperlipidemia Is this a current diagnosis for this admission?: Yes (3) Hypertension Qualifiers: Hypertension type: essential hypertension Qualified Code(s): I10 - Essential (primary) hypertension Is this a current diagnosis for this admission?: Yes Plan: Continue Norvasc. Blood pressures remain high. Will add on 10 of lisinopril. (4) Uncontrolled type 2 diabetes mellitus Qualifiers: Diabetes mellitus complication status: with unspecified complications Diabetes mellitus [employer] insulin use: without [employer] use Qualified Code( s): E11.8 - Type 2 diabetes mellitus with unspecified complications; E11.65 - Type 2 diabetes mellitus with hyperglycemia; E11.65 - Type 2 diabetes mellitus with hyperglycemia; E11.65 - Type 2 diabetes mellitus with hyperglycemia; E11.65 - Type 2 diabetes mellitus with hyperglycemia Is this a current diagnosis for this admission?: Yes Plan: Blood sugars have actually been labile. His blood sugars were running quite high prior to amputation and shortly thereafter. Then they began to run low and his insulin was cut in half. Now his blood sugars are trending back up. Lantus is now up to 40. He is on mealtime insulin as well. The patient states that he is just come to recognize that he is been receiving regular juli ifeoma subset of diet juli ifeoma's with his tray. (5) Acute renal failure Is this a current diagnosis for this admission?: Yes Plan: This is better described as acute on chronic kidney failure stage III. The acute portion of the patient's renal failure is resolved. Continue to monitor with addition of lisinopril. (6) Acute pain Is this a current diagnosis for this admission?: Yes Plan: Patient has acute pain after his amputation. As needed pain medications as ordered by surgery (7) Anxiety Plan: Continue Xanax as needed. - Time Time Spent with patient: 25-34 minutes
[2017-05-25] MEDS ORDERED: POLYETHYLENE GLYCOL 3350 POWDER 17 GM/1 PACKET PO ONE (17:00)
[2017-05-25] MEDS: INSULIN GLARGINE,HUM.REC.ANLOG 300 UNIT/3 ML INSULN.PEN SUBCUT SCH (21:15)
[2017-05-25] MEDS: ZOLPIDEM TARTRATE 5 MG TABLET PO PRN (21:15)
[2017-05-26] MEDS: GABAPENTIN 300 MG CAPSULE PO SCH ×4 (04:22→23:26)
[2017-05-26] MEDS: OXYCODONE HCL IR 5 MG TABLET PO PRN ×4 (04:22→21:48)
[2017-05-26] MEDS: LANSOPRAZOLE 30 MG TAB.RAP.DR PO SCH ×2 (04:22→16:58)
[2017-05-26 04:54] LABS: ABSOLUTE EOSINOPHILS # (AUTO) 0.4 10^3/uL (0.0-0.6); ABSOLUTE LYMPHOCYTES (AUTO) 2.5 10^3/uL (0.5-4.7); ABSOLUTE MONOCYTES (AUTO) 0.8 10^3/uL (0.1-1.4); BASOPHILS % (AUTO) 0.5 % (0-2); EOSINOPHILS % (AUTO) 5.7 % (0-6); HEMATOCRIT 33.9 % (37.9-51.0); HEMOGLOBIN 11.2 g/dL (13.5-17.0); LYMPHOCYTES % (AUTO) 31.9 % (13-45); MEAN CORPUSCULAR HEMOGLOBIN 29.4 pg (27.0-33.4); MEAN CORPUSCULAR HGB CONC 33.1 g/dL (32.0-36.0); MEAN CORPUSCULAR VOLUME 89 fl (80-97); MONOCYTES % (AUTO) 10.7 % (3-13); PLATELET COUNT 213 10^3/uL (150-450); RED BLOOD COUNT 3.82 10^6/uL (4.35-5.55); SEGMENTED NEUTROPHILS % (AUTO) 51.2 % (42-78); TOTAL CELLS COUNTED % (AUTO) 100 %; WHITE BLOOD COUNT 7.9 10^3/uL (4.0-10.5)
[2017-05-26 05:03] LABS: ANION GAP 9 (5-19); BLOOD UREA NITROGEN 25 mg/dL (7-20); CALCIUM 9.8 mg/dL (8.4-10.2); CARBON DIOXIDE 32 mmol/L (22-30); CHLORIDE 102 mmol/L (98-107); GLUCOSE 167 mg/dL (75-110); MAGNESIUM 1.9 mg/dL (1.6-2.3); POTASSIUM 4.2 mmol/L (3.6-5.0); SODIUM 142.9 mmol/L (137-145)
[2017-05-26] MEDS: DOCUSATE SODIUM 100 MG CAPSULE PO SCH (09:01)
[2017-05-26] MEDS: AMLODIPINE BESYLATE 10 MG TABLET PO SCH (09:01)
[2017-05-26] MEDS: HYDROCHLOROTHIAZIDE 12.5 MG CAPSULE PO SCH (09:01)
[2017-05-26] MEDS: FAMOTIDINE 20 MG TABLET PO SCH ×2 (09:02→21:48)
[2017-05-26] MEDS: HALOPERIDOL 2 MG TABLET PO SCH ×2 (09:02→21:48)
[2017-05-26] MEDS: INSULIN LISPRO 100 UNIT/ML 3 ML VIAL SUBCUT SCH ×3 (09:04→16:58)
[2017-05-26] MEDS: INSULIN LISPRO 100 UNIT/ML 3 ML VIAL SUBCUT PRN (09:04)
[2017-05-26] MEDS: METOPROLOL SUCCINATE 25 MG TAB.SR.24H PO SCH ×2 (09:04→21:48)
[2017-05-26] MEDS: NORMAL SALINE 10 ML SDV (SCHEDULED) IV SCH ×2 (09:06→21:48)
[2017-05-26] MEDS: ENOXAPARIN SODIUM INJ 40 MG/0.4 ML DISP.SYRIN SUBCUT SCH (09:06)
[2017-05-26] MEDS: POLYETHYLENE GLYCOL 3350 POWDER 17 GM/1 PACKET PO SCH (09:06)
[2017-05-26] MEDS ORDERED: TRAMADOL HCL 50 MG TABLET PO PRN (10:52)
--- NOTE | 2017-05-26 15:51 | PDOC PROGRESS REPORT ---
Subjective Progress Note for:: 05/26/17 Subjective:: Denies any complaints Reason For Visit: DIABETIC FOOT ULCER Physical Exam Vital Signs: Temp Pulse Resp BP Pulse Ox 98.1 F 97 18 136/65 H 97 05/26/17 12:00 05/26/17 12:00 05/26/17 12:00 05/26/17 12:00 05/26/17 12:00 Intake & Output 05/25/17 05/26/17 05/27/17 06:59 06:59 06:59 Intake Total 1500 2262 Output Total 402 700 Balance 1098 1562 General appearance: PRESENT: no acute distress Eye exam: PRESENT: conjunctiva pink. ABSENT: scleral icterus Mouth exam: PRESENT: moist, tongue midline Neck exam: ABSENT: JVD Respiratory exam: ABSENT: rales, rhonchi, wheezes Cardiovascular exam: PRESENT: RRR. ABSENT: diastolic murmur, rubs, systolic murmur GI/Abdominal exam: PRESENT: normal bowel sounds, soft. ABSENT: distended, guarding, mass, organolmegaly, rebound, tenderness Extremities exam: PRESENT: other - Wound VAC in place on the right foot.. ABSENT: calf tenderness, clubbing, pedal edema Neurological exam: PRESENT: alert, awake, oriented to person, oriented to place , oriented to time, oriented to situation, CN II-XII grossly intact. ABSENT: motor sensory deficit Psychiatric exam: PRESENT: appropriate affect Skin exam: PRESENT: other - Wound VAC in place on the right foot. Results Laboratory Results: 05/26/17 04:30 05/26/17 04:30 05/26/17 05/26/17 04:30 04:30 WBC 7.9 RBC 3.82 L Hgb 11.2 L Hct 33.9 L MCV 89 MCH 29.4 MCHC 33.1 RDW 14.0 Plt Count 213 Seg Neutrophils % 51.2 Lymphocytes % 31.9 Monocytes % 10.7 Eosinophils % 5.7 Basophils % 0.5 Absolute Neutrophils 4.0 Absolute Lymphocytes 2.5 Absolute Monocytes 0.8 Absolute Eosinophils 0.4 Absolute Basophils 0.0 Sodium 142.9 Potassium 4.2 Chloride 102 Carbon Dioxide 32 H Anion Gap 9 BUN 25 H Creatinine 1.46 H Est GFR ( Amer) > 60 Est GFR (Non-Af Amer) 50 L Glucose 167 H Calcium 9.8 Magnesium 1.9 Impressions: Foot X-Ray 05/01/17 14:36 IMPRESSION: PATIENT WITH PRIOR HEALED 4TH AND 5TH METATARSAL FRACTURES WITH SHAGGY APPEARANCE INVOLVING THE FRACTURE SITES WHICH COULD REPRESENT SEQUELA OF THE PRIOR HEALING OR SUPERIMPOSED OSTEOMYELITIS GIVEN PATIENT'S HISTORY OF ULCERATION. MRI IS FOR FURTHER EVALUATION CLINICALLY INDICATED. Lower Extremity MRI 05/01/17 15:51 IMPRESSION: Ulcer over the base of the 5th metatarsal with bony cortical with erosion and abnormal marrow signal in the proximal 2/3 of the 5th metatarsal compatible with osteomyelitis. Guidance Fluoroscopy 05/05/17 00:00 IMPRESSION: Please see combined report for performance of procedure and radiologic supervision and interpretation. Interventional Vascular Procedure 05/05/17 00:00 IMPRESSION: Please see combined report for performance of procedure and radiologic supervision and interpretation. PICC Line Insertion 05/05/17 00:00 IMPRESSION: SUCCESSFUL PLACEMENT OF A 5 FR dual LUMEN 39 CM PICC IN THE basilic VEIN. Assessment & Plan - Diagnosis (1) Diabetic foot infection Is this a current diagnosis for this admission?: Yes Plan: Patient had an MRI that shows osteomyelitis. General surgery performed removal of the right fifth metatarsal ray. We will continue with wound VAC. Patient has polymicrobial bacterial growth from cultures. (2) Hypertension Qualifiers: Hypertension type: essential hypertension Qualified Code(s): I10 - Essential (primary) hypertension Is this a current diagnosis for this admission?: Yes Plan: Blood pressure is improved on Norvasc. (3) Uncontrolled type 2 diabetes mellitus Qualifiers: Diabetes mellitus complication status: with unspecified complications Diabetes mellitus [facility] insulin use: without [facility] use Qualified Code( s): E11.8 - Type 2 diabetes mellitus with unspecified complications; E11.65 - Type 2 diabetes mellitus with hyperglycemia; E11.65 - Type 2 diabetes mellitus with hyperglycemia; E11.65 - Type 2 diabetes mellitus with hyperglycemia; E11.65 - Type 2 diabetes mellitus with hyperglycemia Is this a current diagnosis for this admission?: Yes Plan: Will continue the Lantus and continue sliding scale insulin. (4) Hyperlipidemia Is this a current diagnosis for this admission?: Yes (5) Peripheral neuropathy Is this a current diagnosis for this admission?: Yes Plan: We will continue gabapentin. - Time Time Spent with patient: 25-34 minutes - Inpatient Certification Medical Necessity: Need Close Monitoring Due to Risk of Patient Decompensation
[2017-05-26] MEDS: ZOLPIDEM TARTRATE 5 MG TABLET PO PRN (21:48)
[2017-05-26] MEDS: INSULIN GLARGINE,HUM.REC.ANLOG 300 UNIT/3 ML INSULN.PEN SUBCUT SCH (21:48)
[2017-05-27] MEDS: METOCLOPRAMIDE HCL INJ/PF 10 MG/2 ML SDV IV PRN (02:58)
[2017-05-27] MEDS: LANSOPRAZOLE 30 MG TAB.RAP.DR PO SCH ×2 (06:26→18:19)
[2017-05-27] MEDS: GABAPENTIN 300 MG CAPSULE PO SCH ×4 (06:26→21:20)
[2017-05-27] MEDS: OXYCODONE HCL IR 5 MG TABLET PO PRN ×2 (06:26→21:20)
[2017-05-27] MEDS: INSULIN LISPRO 100 UNIT/ML 3 ML VIAL SUBCUT SCH ×3 (08:39→18:19)
[2017-05-27] MEDS: HYDROCHLOROTHIAZIDE 12.5 MG CAPSULE PO SCH (08:39)
[2017-05-27] MEDS: METOPROLOL SUCCINATE 25 MG TAB.SR.24H PO SCH ×2 (11:02→21:20)
[2017-05-27] MEDS: HALOPERIDOL 2 MG TABLET PO SCH ×2 (11:02→21:21)
[2017-05-27] MEDS: AMLODIPINE BESYLATE 10 MG TABLET PO SCH (11:02)
[2017-05-27] MEDS: FAMOTIDINE 20 MG TABLET PO SCH ×2 (11:03→21:20)
[2017-05-27] MEDS: POLYETHYLENE GLYCOL 3350 POWDER 17 GM/1 PACKET PO SCH (11:03)
[2017-05-27] MEDS: NORMAL SALINE 10 ML SDV (SCHEDULED) IV SCH ×2 (11:03→21:21)
[2017-05-27] MEDS: DOCUSATE SODIUM 100 MG CAPSULE PO SCH (11:03)
[2017-05-27] MEDS: ENOXAPARIN SODIUM INJ 40 MG/0.4 ML DISP.SYRIN SUBCUT SCH (11:04)
--- NOTE | 2017-05-27 11:22 | PDOC PROGRESS REPORT ---
Subjective Progress Note for:: 05/27/17 Subjective:: Denies any complaints Reason For Visit: DIABETIC FOOT ULCER Physical Exam Vital Signs: Temp Pulse Resp BP Pulse Ox 98.7 F 60 16 148/75 H 97 05/27/17 00:00 05/27/17 00:00 05/27/17 00:00 05/27/17 00:00 05/27/17 00:00 Intake & Output 05/26/17 05/27/17 05/28/17 06:59 06:59 06:59 Intake Total 2262 1720 Output Total 700 1550 Balance 1562 170 General appearance: PRESENT: no acute distress Eye exam: PRESENT: conjunctiva pink. ABSENT: scleral icterus Mouth exam: PRESENT: moist, tongue midline Respiratory exam: PRESENT: clear to auscultation manuel. ABSENT: rales, rhonchi, wheezes Cardiovascular exam: PRESENT: RRR. ABSENT: diastolic murmur, rubs, systolic murmur GI/Abdominal exam: PRESENT: normal bowel sounds, soft. ABSENT: distended, guarding, mass, organolmegaly, rebound, tenderness Extremities exam: PRESENT: other - Wound VAC in place on the right foot.. ABSENT: calf tenderness, clubbing, pedal edema Neurological exam: PRESENT: alert, awake, oriented to person, oriented to place , oriented to time, oriented to situation, CN II-XII grossly intact. ABSENT: motor sensory deficit Psychiatric exam: PRESENT: appropriate affect Skin exam: PRESENT: other - Wound VAC in place on the right foot. Results Laboratory Results: 05/26/17 04:30 05/26/17 04:30 Impressions: Foot X-Ray 05/01/17 14:36 IMPRESSION: PATIENT WITH PRIOR HEALED 4TH AND 5TH METATARSAL FRACTURES WITH SHAGGY APPEARANCE INVOLVING THE FRACTURE SITES WHICH COULD REPRESENT SEQUELA OF THE PRIOR HEALING OR SUPERIMPOSED OSTEOMYELITIS GIVEN PATIENT'S HISTORY OF ULCERATION. MRI IS FOR FURTHER EVALUATION CLINICALLY INDICATED. Lower Extremity MRI 05/01/17 15:51 IMPRESSION: Ulcer over the base of the 5th metatarsal with bony cortical with erosion and abnormal marrow signal in the proximal 2/3 of the 5th metatarsal compatible with osteomyelitis. Guidance Fluoroscopy 05/05/17 00:00 IMPRESSION: Please see combined report for performance of procedure and radiologic supervision and interpretation. Interventional Vascular Procedure 05/05/17 00:00 IMPRESSION: Please see combined report for performance of procedure and radiologic supervision and interpretation. PICC Line Insertion 05/05/17 00:00 IMPRESSION: SUCCESSFUL PLACEMENT OF A 5 FR dual LUMEN 39 CM PICC IN THE basilic VEIN. Assessment & Plan - Diagnosis (1) Diabetic foot infection Is this a current diagnosis for this admission?: Yes Plan: Patient had an MRI that shows osteomyelitis. General surgery performed removal of the right fifth metatarsal ray. We will continue with wound VAC. Patient has polymicrobial bacterial growth from cultures. (2) Hypertension Qualifiers: Hypertension type: essential hypertension Qualified Code(s): I10 - Essential (primary) hypertension Is this a current diagnosis for this admission?: Yes Plan: Blood pressure is stable (3) Uncontrolled type 2 diabetes mellitus Qualifiers: Diabetes mellitus complication status: with unspecified complications Diabetes mellitus intermodal truck driver insulin use: without intermodal truck driver use Qualified Code( s): E11.8 - Type 2 diabetes mellitus with unspecified complications; E11.65 - Type 2 diabetes mellitus with hyperglycemia; E11.65 - Type 2 diabetes mellitus with hyperglycemia; E11.65 - Type 2 diabetes mellitus with hyperglycemia; E11.65 - Type 2 diabetes mellitus with hyperglycemia Is this a current diagnosis for this admission?: Yes Plan: Will continue the Lantus and continue sliding scale insulin. (4) Hyperlipidemia Is this a current diagnosis for this admission?: Yes (5) Peripheral neuropathy Is this a current diagnosis for this admission?: Yes Plan: We will continue gabapentin. - Time Time Spent with patient: 15-24 minutes - Inpatient Certification Medical Necessity: Need Close Monitoring Due to Risk of Patient Decompensation
[2017-05-27] MEDS: ZOLPIDEM TARTRATE 5 MG TABLET PO PRN (21:20)
[2017-05-27] MEDS: INSULIN GLARGINE,HUM.REC.ANLOG 300 UNIT/3 ML INSULN.PEN SUBCUT SCH (21:21)
[2017-05-28] MEDS: LANSOPRAZOLE 30 MG TAB.RAP.DR PO SCH ×2 (05:08→17:57)
[2017-05-28] MEDS: GABAPENTIN 300 MG CAPSULE PO SCH ×4 (06:24→23:13)
[2017-05-28] MEDS: OXYCODONE HCL IR 5 MG TABLET PO PRN (06:24)
[2017-05-28 07:04] LABS: ANION GAP 9 (5-19); BLOOD UREA NITROGEN 29 mg/dL (7-20); CALCIUM 9.3 mg/dL (8.4-10.2); CARBON DIOXIDE 30 mmol/L (22-30); CHLORIDE 101 mmol/L (98-107); GLUCOSE 237 mg/dL (75-110); POTASSIUM 4.8 mmol/L (3.6-5.0); SODIUM 140.2 mmol/L (137-145)
[2017-05-28] MEDS: HYDROCHLOROTHIAZIDE 12.5 MG CAPSULE PO SCH (08:29)
[2017-05-28] MEDS: INSULIN LISPRO 100 UNIT/ML 3 ML VIAL SUBCUT PRN ×2 (08:30→21:13)
[2017-05-28] MEDS: INSULIN LISPRO 100 UNIT/ML 3 ML VIAL SUBCUT SCH ×3 (08:31→18:01)
[2017-05-28] MEDS: POLYETHYLENE GLYCOL 3350 POWDER 17 GM/1 PACKET PO SCH (09:18)
[2017-05-28] MEDS: NORMAL SALINE 10 ML SDV (SCHEDULED) IV SCH ×2 (09:18→21:13)
[2017-05-28] MEDS: DOCUSATE SODIUM 100 MG CAPSULE PO SCH (09:19)
[2017-05-28] MEDS: ENOXAPARIN SODIUM INJ 40 MG/0.4 ML DISP.SYRIN SUBCUT SCH (09:19)
[2017-05-28] MEDS: METOPROLOL SUCCINATE 25 MG TAB.SR.24H PO SCH ×2 (09:19→21:13)
[2017-05-28] MEDS: FAMOTIDINE 20 MG TABLET PO SCH ×2 (09:19→21:13)
[2017-05-28] MEDS: HALOPERIDOL 2 MG TABLET PO SCH ×2 (09:19→21:13)
[2017-05-28] MEDS: AMLODIPINE BESYLATE 10 MG TABLET PO SCH (09:19)
--- NOTE | 2017-05-28 15:33 | PDOC PROGRESS REPORT ---
Subjective Progress Note for:: 05/28/17 Subjective:: Denies any complaints Reason For Visit: DIABETIC FOOT ULCER Physical Exam Vital Signs: Temp Pulse Resp BP Pulse Ox 98.0 F 60 20 133/70 H 99 05/28/17 12:00 05/28/17 12:00 05/28/17 12:00 05/28/17 12:00 05/28/17 12:00 Intake & Output 05/27/17 05/28/17 05/29/17 06:59 06:59 06:59 Intake Total 1720 243 Output Total 1550 300 Balance 170 -57 General appearance: PRESENT: no acute distress Eye exam: PRESENT: conjunctiva pink. ABSENT: scleral icterus Mouth exam: PRESENT: moist, tongue midline Neck exam: ABSENT: JVD Respiratory exam: PRESENT: clear to auscultation manuel. ABSENT: rales, rhonchi, wheezes Cardiovascular exam: PRESENT: RRR. ABSENT: diastolic murmur, rubs, systolic murmur GI/Abdominal exam: PRESENT: normal bowel sounds, soft. ABSENT: distended, guarding, mass, organolmegaly, rebound, tenderness Extremities exam: ABSENT: calf tenderness, clubbing, pedal edema Neurological exam: PRESENT: alert, awake, oriented to person, oriented to place , oriented to time, oriented to situation, CN II-XII grossly intact. ABSENT: motor sensory deficit Psychiatric exam: PRESENT: appropriate affect Skin exam: PRESENT: dry, intact, warm. ABSENT: cyanosis, rash Results Laboratory Results: 05/26/17 04:30 05/28/17 05:30 05/28/17 05:30 Sodium 140.2 Potassium 4.8 Chloride 101 Carbon Dioxide 30 Anion Gap 9 BUN 29 H Creatinine 1.74 H Est GFR ( Amer) 49 L Est GFR (Non-Af Amer) 41 L Glucose 237 H Calcium 9.3 Impressions: Foot X-Ray 05/01/17 14:36 IMPRESSION: PATIENT WITH PRIOR HEALED 4TH AND 5TH METATARSAL FRACTURES WITH SHAGGY APPEARANCE INVOLVING THE FRACTURE SITES WHICH COULD REPRESENT SEQUELA OF THE PRIOR HEALING OR SUPERIMPOSED OSTEOMYELITIS GIVEN PATIENT'S HISTORY OF ULCERATION. MRI IS FOR FURTHER EVALUATION CLINICALLY INDICATED. Lower Extremity MRI 05/01/17 15:51 IMPRESSION: Ulcer over the base of the 5th metatarsal with bony cortical with erosion and abnormal marrow signal in the proximal 2/3 of the 5th metatarsal compatible with osteomyelitis. Guidance Fluoroscopy 05/05/17 00:00 IMPRESSION: Please see combined report for performance of procedure and radiologic supervision and interpretation. Interventional Vascular Procedure 05/05/17 00:00 IMPRESSION: Please see combined report for performance of procedure and radiologic supervision and interpretation. PICC Line Insertion 05/05/17 00:00 IMPRESSION: SUCCESSFUL PLACEMENT OF A 5 FR dual LUMEN 39 CM PICC IN THE basilic VEIN. Assessment & Plan - Diagnosis (1) Diabetic foot infection Is this a current diagnosis for this admission?: Yes Plan: Patient had an MRI that shows osteomyelitis. General surgery performed removal of the right fifth metatarsal ray. We will continue with wound VAC. Patient has polymicrobial bacterial growth from cultures. 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 (4) Hyperlipidemia Is this a current diagnosis for this admission?: Yes (5) Peripheral neuropathy Is this a current diagnosis for this admission?: Yes Plan: We will continue gabapentin. - Time Time Spent with patient: 25-34 minutes - Inpatient Certification Medical Necessity: Need Close Monitoring Due to Risk of Patient Decompensation
[2017-05-28] MEDS: INSULIN GLARGINE,HUM.REC.ANLOG 300 UNIT/3 ML INSULN.PEN SUBCUT SCH (21:13)
[2017-05-28] MEDS: AMITRIPTYLINE HCL 50 MG TABLET PO SCH (21:13)
[2017-05-29] MEDS: LANSOPRAZOLE 30 MG TAB.RAP.DR PO SCH ×2 (05:59→17:49)
[2017-05-29] MEDS: GABAPENTIN 300 MG CAPSULE PO SCH ×3 (06:01→17:49)
[2017-05-29] MEDS: HYDROCHLOROTHIAZIDE 12.5 MG CAPSULE PO SCH (07:57)
[2017-05-29] MEDS: INSULIN LISPRO 100 UNIT/ML 3 ML VIAL SUBCUT SCH ×3 (07:57→17:40)
[2017-05-29] MEDS: FAMOTIDINE 20 MG TABLET PO SCH ×2 (11:10→21:29)
[2017-05-29] MEDS: METOPROLOL SUCCINATE 25 MG TAB.SR.24H PO SCH ×2 (11:11→21:31)
[2017-05-29] MEDS: DOCUSATE SODIUM 100 MG CAPSULE PO SCH (11:11)
[2017-05-29] MEDS: AMLODIPINE BESYLATE 10 MG TABLET PO SCH (11:11)
[2017-05-29] MEDS: NORMAL SALINE 10 ML SDV (SCHEDULED) IV SCH ×2 (11:12→21:30)
[2017-05-29] MEDS: HALOPERIDOL 2 MG TABLET PO SCH ×2 (11:13→21:31)
[2017-05-29] MEDS: POLYETHYLENE GLYCOL 3350 POWDER 17 GM/1 PACKET PO SCH (11:21)
[2017-05-29] MEDS: ENOXAPARIN SODIUM INJ 40 MG/0.4 ML DISP.SYRIN SUBCUT SCH (11:21)
--- NOTE | 2017-05-29 17:54 | PDOC PROGRESS REPORT ---
Subjective Progress Note for:: 05/29/17 Subjective:: Denies any complaints Reason For Visit: DIABETIC FOOT ULCER Physical Exam Vital Signs: Temp Pulse Resp BP Pulse Ox 98.7 F 71 16 151/69 H 95 05/29/17 15:48 05/29/17 15:48 05/29/17 15:48 05/29/17 15:48 05/29/17 15:48 Intake & Output 05/28/17 05/29/17 05/30/17 06:59 06:59 06:59 Intake Total 243 953 Output Total 300 300 Balance -57 653 General appearance: PRESENT: no acute distress Extremities exam: PRESENT: other - Wound VAC in place Results Laboratory Results: 05/26/17 04:30 05/28/17 05:30 Impressions: Foot X-Ray 05/01/17 14:36 IMPRESSION: PATIENT WITH PRIOR HEALED 4TH AND 5TH METATARSAL FRACTURES WITH SHAGGY APPEARANCE INVOLVING THE FRACTURE SITES WHICH COULD REPRESENT SEQUELA OF THE PRIOR HEALING OR SUPERIMPOSED OSTEOMYELITIS GIVEN PATIENT'S HISTORY OF ULCERATION. MRI IS FOR FURTHER EVALUATION CLINICALLY INDICATED. Lower Extremity MRI 05/01/17 15:51 IMPRESSION: Ulcer over the base of the 5th metatarsal with bony cortical with erosion and abnormal marrow signal in the proximal 2/3 of the 5th metatarsal compatible with osteomyelitis. Guidance Fluoroscopy 05/05/17 00:00 IMPRESSION: Please see combined report for performance of procedure and radiologic supervision and interpretation. Interventional Vascular Procedure 05/05/17 00:00 IMPRESSION: Please see combined report for performance of procedure and radiologic supervision and interpretation. PICC Line Insertion 05/05/17 00:00 IMPRESSION: SUCCESSFUL PLACEMENT OF A 5 FR dual LUMEN 39 CM PICC IN THE basilic VEIN. Assessment & Plan - Diagnosis (1) Diabetic foot infection Is this a current diagnosis for this admission?: Yes Plan: Patient had an MRI that shows osteomyelitis. General surgery performed removal of the right fifth metatarsal ray. We will continue with wound VAC. Patient has polymicrobial bacterial growth from cultures. (2) Hypertension Qualifiers: Hypertension type: essential hypertension Qualified Code(s): I10 - Essential (primary) hypertension Is this a current diagnosis for this admission?: Yes Plan: Blood pressure is stable (3) Uncontrolled type 2 diabetes mellitus Qualifiers: Diabetes mellitus complication status: with unspecified complications Diabetes mellitus residential insulin use: without residential use Qualified Code( s): E11.8 - Type 2 diabetes mellitus with unspecified complications; E11.65 - Type 2 diabetes mellitus with hyperglycemia; E11.65 - Type 2 diabetes mellitus with hyperglycemia; E11.65 - Type 2 diabetes mellitus with hyperglycemia; E11.65 - Type 2 diabetes mellitus with hyperglycemia Is this a current diagnosis for this admission?: Yes Plan: Will continue the Lantus and continue sliding scale insulin. (4) Hyperlipidemia Is this a current diagnosis for this admission?: Yes (5) Peripheral neuropathy Is this a current diagnosis for this admission?: Yes Plan: We will continue gabapentin. - Time Time Spent with patient: Less than 15 minutes - Inpatient Certification Medical Necessity: Need Close Monitoring Due to Risk of Patient Decompensation
[2017-05-29] MEDS: AMITRIPTYLINE HCL 50 MG TABLET PO SCH (21:30)
[2017-05-29] MEDS: INSULIN LISPRO 100 UNIT/ML 3 ML VIAL SUBCUT PRN (21:30)
[2017-05-29] MEDS: INSULIN GLARGINE,HUM.REC.ANLOG 300 UNIT/3 ML INSULN.PEN SUBCUT SCH (21:30)
[2017-05-29] MEDS: OXYCODONE HCL IR 5 MG TABLET PO PRN (21:31)
[2017-05-30] MEDS: GABAPENTIN 300 MG CAPSULE PO SCH ×4 (00:17→17:16)
[2017-05-30] MEDS: LANSOPRAZOLE 30 MG TAB.RAP.DR PO SCH ×2 (05:04→16:24)
[2017-05-30] MEDS: INSULIN LISPRO 100 UNIT/ML 3 ML VIAL SUBCUT SCH ×3 (09:33→17:16)
[2017-05-30] MEDS: INSULIN LISPRO 100 UNIT/ML 3 ML VIAL SUBCUT PRN ×3 (09:33→21:45)
[2017-05-30] MEDS: DOCUSATE SODIUM 100 MG CAPSULE PO SCH (09:34)
[2017-05-30] MEDS: NORMAL SALINE 10 ML SDV (SCHEDULED) IV SCH ×2 (09:34→21:45)
[2017-05-30] MEDS: HYDROCHLOROTHIAZIDE 12.5 MG CAPSULE PO SCH (09:35)
[2017-05-30] MEDS: AMLODIPINE BESYLATE 10 MG TABLET PO SCH (09:35)
[2017-05-30] MEDS: HALOPERIDOL 2 MG TABLET PO SCH ×2 (09:35→21:45)
[2017-05-30] MEDS: METOPROLOL SUCCINATE 25 MG TAB.SR.24H PO SCH ×2 (09:35→21:45)
[2017-05-30] MEDS: FAMOTIDINE 20 MG TABLET PO SCH ×2 (09:35→21:45)
[2017-05-30] MEDS: ENOXAPARIN SODIUM INJ 40 MG/0.4 ML DISP.SYRIN SUBCUT SCH (09:36)
[2017-05-30] MEDS: POLYETHYLENE GLYCOL 3350 POWDER 17 GM/1 PACKET PO SCH (09:36)
--- NOTE | 2017-05-30 11:58 | PDOC PROGRESS REPORT ---
Subjective Progress Note for:: 05/30/17 Subjective:: Denies any complaints Reason For Visit: DIABETIC FOOT ULCER Physical Exam Vital Signs: Temp Pulse Resp BP Pulse Ox 98.5 F 65 16 147/73 H 96 05/30/17 08:15 05/30/17 08:15 05/30/17 08:15 05/30/17 08:15 05/30/17 08:15 Intake & Output 05/29/17 05/30/17 05/31/17 06:59 06:59 06:59 Intake Total 953 1852 Output Total 300 1050 Balance 653 802 General appearance: PRESENT: no acute distress Eye exam: PRESENT: conjunctiva pink. ABSENT: scleral icterus Mouth exam: PRESENT: moist, tongue midline Neck exam: ABSENT: JVD Respiratory exam: PRESENT: clear to auscultation manuel. ABSENT: rales, rhonchi, wheezes Cardiovascular exam: PRESENT: RRR. ABSENT: diastolic murmur, rubs, systolic murmur GI/Abdominal exam: PRESENT: normal bowel sounds, soft. ABSENT: distended, guarding, mass, organolmegaly, rebound, tenderness Extremities exam: PRESENT: other - Wound VAC in place on the right foot.. ABSENT: calf tenderness, clubbing, pedal edema Neurological exam: PRESENT: alert, awake, oriented to person, oriented to place , oriented to time, oriented to situation, CN II-XII grossly intact. ABSENT: motor sensory deficit Psychiatric exam: PRESENT: appropriate affect Skin exam: PRESENT: dry, intact, warm, other - Wound VAC in place on the right foot.. ABSENT: cyanosis, rash Results Laboratory Results: 05/26/17 04:30 05/28/17 05:30 Impressions: Foot X-Ray 05/01/17 14:36 IMPRESSION: PATIENT WITH PRIOR HEALED 4TH AND 5TH METATARSAL FRACTURES WITH SHAGGY APPEARANCE INVOLVING THE FRACTURE SITES WHICH COULD REPRESENT SEQUELA OF THE PRIOR HEALING OR SUPERIMPOSED OSTEOMYELITIS GIVEN PATIENT'S HISTORY OF ULCERATION. MRI IS FOR FURTHER EVALUATION CLINICALLY INDICATED. Lower Extremity MRI 05/01/17 15:51 IMPRESSION: Ulcer over the base of the 5th metatarsal with bony cortical with erosion and abnormal marrow signal in the proximal 2/3 of the 5th metatarsal compatible with osteomyelitis. Guidance Fluoroscopy 05/05/17 00:00 IMPRESSION: Please see combined report for performance of procedure and radiologic supervision and interpretation. Interventional Vascular Procedure 05/05/17 00:00 IMPRESSION: Please see combined report for performance of procedure and radiologic supervision and interpretation. PICC Line Insertion 05/05/17 00:00 IMPRESSION: SUCCESSFUL PLACEMENT OF A 5 FR dual LUMEN 39 CM PICC IN THE basilic VEIN. Assessment & Plan - Diagnosis (1) Diabetic foot infection Is this a current diagnosis for this admission?: Yes Plan: Patient had an MRI that shows osteomyelitis. General surgery performed removal of the right fifth metatarsal ray. We will continue with wound VAC. Patient has polymicrobial bacterial growth from cultures. (2) Hypertension Qualifiers: Hypertension type: essential hypertension Qualified Code(s): I10 - Essential (primary) hypertension Is this a current diagnosis for this admission?: Yes Plan: Blood pressure is stable (3) Uncontrolled type 2 diabetes mellitus Qualifiers: Diabetes mellitus complication status: with unspecified complications Diabetes mellitus jail insulin use: without terminal clerk use Qualified Code( s): E11.8 - Type 2 diabetes mellitus with unspecified complications; E11.65 - Type 2 diabetes mellitus with hyperglycemia; E11.65 - Type 2 diabetes mellitus with hyperglycemia; E11.65 - Type 2 diabetes mellitus with hyperglycemia; E11.65 - Type 2 diabetes mellitus with hyperglycemia Is this a current diagnosis for this admission?: Yes Plan: Will continue the Lantus and continue sliding scale insulin. (4) Hyperlipidemia Is this a current diagnosis for this admission?: Yes (5) Peripheral neuropathy Is this a current diagnosis for this admission?: Yes Plan: We will continue gabapentin and amitriptyline. - Time Time Spent with patient: 25-34 minutes - Inpatient Certification Medical Necessity: Need Close Monitoring Due to Risk of Patient Decompensation
[2017-05-30] MEDS: AMITRIPTYLINE HCL 50 MG TABLET PO SCH (21:45)
[2017-05-30] MEDS: OXYCODONE HCL IR 5 MG TABLET PO PRN (21:45)
[2017-05-30] MEDS: INSULIN GLARGINE,HUM.REC.ANLOG 300 UNIT/3 ML INSULN.PEN SUBCUT SCH (21:45)
[2017-05-31] MEDS: GABAPENTIN 300 MG CAPSULE PO SCH ×4 (00:16→17:50)
[2017-05-31] MEDS ORDERED: METOPROLOL TARTRATE PF/INJ 5 MG/5 ML SDV IV ONE (01:30)
[2017-05-31] MEDS: LANSOPRAZOLE 30 MG TAB.RAP.DR PO SCH ×2 (05:32→16:36)
[2017-05-31 06:28] LABS: ABSOLUTE EOSINOPHILS # (AUTO) 0.3 10^3/uL (0.0-0.6); ABSOLUTE LYMPHOCYTES (AUTO) 2.1 10^3/uL (0.5-4.7); BASOPHILS % (AUTO) 0.4 % (0-2); EOSINOPHILS % (AUTO) 4.7 % (0-6); HEMATOCRIT 34.8 % (37.9-51.0); HEMOGLOBIN 11.4 g/dL (13.5-17.0); LYMPHOCYTES % (AUTO) 28.1 % (13-45); MEAN CORPUSCULAR HEMOGLOBIN 29.3 pg (27.0-33.4); MEAN CORPUSCULAR HGB CONC 32.9 g/dL (32.0-36.0); MEAN CORPUSCULAR VOLUME 89 fl (80-97); MONOCYTES % (AUTO) 13.1 % (3-13); PLATELET COUNT 176 10^3/uL (150-450); RED BLOOD COUNT 3.91 10^6/uL (4.35-5.55); RED CELL DISTRIBUTION WIDTH 14.1 % (11.5-14.0); SEGMENTED NEUTROPHILS % (AUTO) 53.7 % (42-78); TOTAL CELLS COUNTED % (AUTO) 100 %; WHITE BLOOD COUNT 7.4 10^3/uL (4.0-10.5)
[2017-05-31 06:56] LABS: ANION GAP 14 (5-19); BLOOD UREA NITROGEN 25 mg/dL (7-20); CALCIUM 9.4 mg/dL (8.4-10.2); CARBON DIOXIDE 25 mmol/L (22-30); CHLORIDE 101 mmol/L (98-107); GLUCOSE 320 mg/dL (75-110); POTASSIUM 4.6 mmol/L (3.6-5.0); SODIUM 139.6 mmol/L (137-145)
[2017-05-31] MEDS: INSULIN LISPRO 100 UNIT/ML 3 ML VIAL SUBCUT PRN ×4 (07:54→21:29)
[2017-05-31] MEDS: HYDROCHLOROTHIAZIDE 12.5 MG CAPSULE PO SCH (07:54)
[2017-05-31] MEDS: POLYETHYLENE GLYCOL 3350 POWDER 17 GM/1 PACKET PO SCH (10:28)
[2017-05-31] MEDS: INSULIN LISPRO 100 UNIT/ML 3 ML VIAL SUBCUT SCH ×3 (10:35→17:50)
[2017-05-31] MEDS: METOPROLOL SUCCINATE 25 MG TAB.SR.24H PO SCH ×2 (10:36→21:30)
[2017-05-31] MEDS: NORMAL SALINE 10 ML SDV (SCHEDULED) IV SCH ×2 (10:36→21:32)
[2017-05-31] MEDS: HALOPERIDOL 2 MG TABLET PO SCH ×2 (10:36→21:31)
[2017-05-31] MEDS: ENOXAPARIN SODIUM INJ 40 MG/0.4 ML DISP.SYRIN SUBCUT SCH (10:36)
[2017-05-31] MEDS: AMLODIPINE BESYLATE 10 MG TABLET PO SCH (10:36)
[2017-05-31] MEDS: FAMOTIDINE 20 MG TABLET PO SCH ×2 (10:36→21:30)
[2017-05-31] MEDS: DOCUSATE SODIUM 100 MG CAPSULE PO SCH (10:37)
--- NOTE | 2017-05-31 11:28 | PDOC PROGRESS REPORT ---
Subjective Progress Note for:: 05/31/17 Subjective:: Denies any complaints Reason For Visit: DIABETIC FOOT ULCER Physical Exam Vital Signs: Temp Pulse Resp BP Pulse Ox 98.8 F 65 20 147/64 H 99 05/31/17 08:00 05/31/17 08:00 05/31/17 08:00 05/31/17 08:00 05/31/17 00:00 Intake & Output 05/30/17 05/31/17 06/01/17 06:59 06:59 06:59 Intake Total 1852 1280 Output Total 1050 950 Balance 802 330 General appearance: PRESENT: no acute distress Eye exam: PRESENT: conjunctiva pink. ABSENT: scleral icterus Mouth exam: PRESENT: moist, tongue midline Neck exam: ABSENT: JVD Respiratory exam: PRESENT: clear to auscultation manuel. ABSENT: rales, rhonchi, wheezes Cardiovascular exam: PRESENT: RRR. ABSENT: diastolic murmur, rubs, systolic murmur GI/Abdominal exam: PRESENT: normal bowel sounds, soft. ABSENT: distended, guarding, mass, organolmegaly, rebound, tenderness Extremities exam: PRESENT: other - Wound VAC in place on the right foot.. ABSENT: calf tenderness, clubbing, pedal edema Neurological exam: PRESENT: alert, awake, oriented to person, oriented to place , oriented to time, oriented to situation, CN II-XII grossly intact. ABSENT: motor sensory deficit Psychiatric exam: PRESENT: appropriate affect Skin exam: PRESENT: dry, intact, warm, other - Wound VAC in place on the right foot.. ABSENT: cyanosis, rash Results Laboratory Results: 05/31/17 06:00 05/31/17 06:00 05/31/17 05/31/17 06:00 06:00 WBC 7.4 RBC 3.91 L Hgb 11.4 L Hct 34.8 L MCV 89 MCH 29.3 MCHC 32.9 RDW 14.1 H Plt Count 176 Seg Neutrophils % 53.7 Lymphocytes % 28.1 Monocytes % 13.1 H Eosinophils % 4.7 Basophils % 0.4 Absolute Neutrophils 4.0 Absolute Lymphocytes 2.1 Absolute Monocytes 1.0 Absolute Eosinophils 0.3 Absolute Basophils 0.0 Sodium 139.6 Potassium 4.6 Chloride 101 Carbon Dioxide 25 Anion Gap 14 BUN 25 H Creatinine 1.56 H Est GFR ( Amer) 56 L Est GFR (Non-Af Amer) 46 L Glucose 320 H Calcium 9.4 Impressions: Foot X-Ray 05/01/17 14:36 IMPRESSION: PATIENT WITH PRIOR HEALED 4TH AND 5TH METATARSAL FRACTURES WITH SHAGGY APPEARANCE INVOLVING THE FRACTURE SITES WHICH COULD REPRESENT SEQUELA OF THE PRIOR HEALING OR SUPERIMPOSED OSTEOMYELITIS GIVEN PATIENT'S HISTORY OF ULCERATION. MRI IS FOR FURTHER EVALUATION CLINICALLY INDICATED. Lower Extremity MRI 05/01/17 15:51 IMPRESSION: Ulcer over the base of the 5th metatarsal with bony cortical with erosion and abnormal marrow signal in the proximal 2/3 of the 5th metatarsal compatible with osteomyelitis. Guidance Fluoroscopy 05/05/17 00:00 IMPRESSION: Please see combined report for performance of procedure and radiologic supervision and interpretation. Interventional Vascular Procedure 05/05/17 00:00 IMPRESSION: Please see combined report for performance of procedure and radiologic supervision and interpretation. PICC Line Insertion 05/05/17 00:00 IMPRESSION: SUCCESSFUL PLACEMENT OF A 5 FR dual LUMEN 39 CM PICC IN THE basilic VEIN. Assessment & Plan - Diagnosis (1) Diabetic foot infection Is this a current diagnosis for this admission?: Yes Plan: Patient had an MRI that shows osteomyelitis. General surgery performed removal of the right fifth metatarsal ray. We will continue with wound VAC. Patient has polymicrobial bacterial growth from cultures. (2) Hypertension Qualifiers: Hypertension type: essential hypertension Qualified Code(s): I10 - Essential (primary) hypertension Is this a current diagnosis for this admission?: Yes Plan: Blood pressure is stable (3) Uncontrolled type 2 diabetes mellitus Qualifiers: Diabetes mellitus complication status: with unspecified complications Diabetes mellitus roasterman insulin use: without jail use Qualified Code( s): E11.8 - Type 2 diabetes mellitus with unspecified complications; E11.65 - Type 2 diabetes mellitus with hyperglycemia; E11.65 - Type 2 diabetes mellitus with hyperglycemia; E11.65 - Type 2 diabetes mellitus with hyperglycemia; E11.65 - Type 2 diabetes mellitus with hyperglycemia Is this a current diagnosis for this admission?: Yes Plan: Will continue the Lantus and continue sliding scale insulin. (4) Hyperlipidemia Is this a current diagnosis for this admission?: Yes (5) Peripheral neuropathy Is this a current diagnosis for this admission?: Yes Plan: We will continue gabapentin and amitriptyline. - Time Time Spent with patient: 25-34 minutes - Inpatient Certification Medical Necessity: Need Close Monitoring Due to Risk of Patient Decompensation
[2017-05-31] MEDS: METOCLOPRAMIDE HCL INJ/PF 10 MG/2 ML SDV IV PRN (14:09)
[2017-05-31] MEDS ORDERED: DEXTROSE 40% GEL 15 GM TUBE X 2 PO PRN (18:10)
[2017-05-31] MEDS ORDERED: DEXTROSE 50%-WATER SYRINGE 25 GM/50 ML DOSE IV PRN (18:10)
[2017-05-31] MEDS ORDERED: GLUCAGON,HUMAN RECOMB 1 MG INJ IM PRN (18:10)
[2017-05-31] MEDS ORDERED: DEXTROSE 50%-WATER SYRINGE 12.5 GM/25 ML DOSE IV PRN (18:10)
[2017-05-31] MEDS ORDERED: DEXTROSE 40% GEL 15 GM TUBE PO PRN (18:10)
[2017-05-31] MEDS: INSULIN GLARGINE,HUM.REC.ANLOG 300 UNIT/3 ML INSULN.PEN SUBCUT SCH (21:29)
[2017-05-31] MEDS: AMITRIPTYLINE HCL 50 MG TABLET PO SCH (21:29)
[2017-05-31] MEDS: OXYCODONE HCL IR 5 MG TABLET PO PRN (21:30)
[2017-05-31] MEDS: ZOLPIDEM TARTRATE 5 MG TABLET PO PRN (21:31)
[2017-06-01] MEDS: GABAPENTIN 300 MG CAPSULE PO SCH ×4 (00:43→17:41)
[2017-06-01] MEDS: LANSOPRAZOLE 30 MG TAB.RAP.DR PO SCH ×2 (06:38→17:41)
[2017-06-01] MEDS: INSULIN LISPRO 100 UNIT/ML 3 ML VIAL SUBCUT SCH ×3 (08:23→17:42)
[2017-06-01] MEDS: INSULIN LISPRO 100 UNIT/ML 3 ML VIAL SUBCUT PRN ×3 (08:23→17:42)
[2017-06-01] MEDS: HYDROCHLOROTHIAZIDE 12.5 MG CAPSULE PO SCH (08:24)
[2017-06-01] MEDS: OXYCODONE HCL IR 5 MG TABLET PO PRN (08:45)
[2017-06-01] MEDS: DOCUSATE SODIUM 100 MG CAPSULE PO SCH (10:24)
[2017-06-01] MEDS: AMLODIPINE BESYLATE 10 MG TABLET PO SCH (10:24)
[2017-06-01] MEDS: HALOPERIDOL 2 MG TABLET PO SCH ×2 (10:24→21:45)
[2017-06-01] MEDS: METOPROLOL SUCCINATE 25 MG TAB.SR.24H PO SCH ×2 (10:24→21:45)
[2017-06-01] MEDS: FAMOTIDINE 20 MG TABLET PO SCH (10:25)
[2017-06-01] MEDS: ENOXAPARIN SODIUM INJ 40 MG/0.4 ML DISP.SYRIN SUBCUT SCH (10:25)
[2017-06-01] MEDS: NORMAL SALINE 10 ML SDV (AFTER EACH USE) IV PRN (10:27)
[2017-06-01] MEDS: POLYETHYLENE GLYCOL 3350 POWDER 17 GM/1 PACKET PO SCH (10:27)
[2017-06-01] MEDS: NORMAL SALINE 10 ML SDV (SCHEDULED) IV SCH ×2 (10:27→22:05)
[2017-06-01] MEDS ORDERED: ACETAMINOPHEN 325 MG TABLET PO PRN (13:00)
[2017-06-01] MEDS ORDERED: TRAMADOL HCL 50 MG TABLET PO PRN (13:00)
[2017-06-01] MEDS ORDERED: OXYCODONE HCL IR 5 MG TABLET PO PRN (13:30)
--- NOTE | 2017-06-01 14:15 | PDOC PROGRESS REPORT ---
Subjective Progress Note for:: 06/01/17 Subjective:: Complains of insomnia Reason For Visit: DIABETIC FOOT ULCER Physical Exam Vital Signs: Temp Pulse Resp BP Pulse Ox 98.5 F 61 18 143/60 H 98 06/01/17 11:59 06/01/17 11:59 06/01/17 11:59 06/01/17 11:59 06/01/17 11:59 Intake & Output 05/31/17 06/01/17 06/02/17 06:59 06:59 06:59 Intake Total 2064 841 Output Total 950 400 Balance 1114 441 General appearance: PRESENT: no acute distress Eye exam: PRESENT: conjunctiva pink. ABSENT: scleral icterus Mouth exam: PRESENT: moist, tongue midline Neck exam: ABSENT: JVD Respiratory exam: PRESENT: clear to auscultation manuel. ABSENT: rales, rhonchi, wheezes Cardiovascular exam: PRESENT: RRR. ABSENT: diastolic murmur, rubs, systolic murmur GI/Abdominal exam: PRESENT: normal bowel sounds, soft. ABSENT: distended, guarding, mass, organolmegaly, rebound, tenderness Extremities exam: ABSENT: calf tenderness, clubbing, pedal edema Neurological exam: PRESENT: alert, awake, oriented to person, oriented to place , oriented to time, oriented to situation, CN II-XII grossly intact. ABSENT: motor sensory deficit Psychiatric exam: PRESENT: appropriate affect Skin exam: PRESENT: other - Wound VAC in place on the right foot. Results Laboratory Results: 05/31/17 06:00 05/31/17 06:00 Impressions: Foot X-Ray 05/01/17 14:36 IMPRESSION: PATIENT WITH PRIOR HEALED 4TH AND 5TH METATARSAL FRACTURES WITH SHAGGY APPEARANCE INVOLVING THE FRACTURE SITES WHICH COULD REPRESENT SEQUELA OF THE PRIOR HEALING OR SUPERIMPOSED OSTEOMYELITIS GIVEN PATIENT'S HISTORY OF ULCERATION. MRI IS FOR FURTHER EVALUATION CLINICALLY INDICATED. Lower Extremity MRI 05/01/17 15:51 IMPRESSION: Ulcer over the base of the 5th metatarsal with bony cortical with erosion and abnormal marrow signal in the proximal 2/3 of the 5th metatarsal compatible with osteomyelitis. Guidance Fluoroscopy 05/05/17 00:00 IMPRESSION: Please see combined report for performance of procedure and radiologic supervision and interpretation. Interventional Vascular Procedure 05/05/17 00:00 IMPRESSION: Please see combined report for performance of procedure and radiologic supervision and interpretation. PICC Line Insertion 05/05/17 00:00 IMPRESSION: SUCCESSFUL PLACEMENT OF A 5 FR dual LUMEN 39 CM PICC IN THE basilic VEIN. Assessment & Plan - Diagnosis (1) Diabetic foot infection Is this a current diagnosis for this admission?: Yes Plan: Patient had an MRI that shows osteomyelitis. General surgery performed removal of the right fifth metatarsal ray. We will continue with wound VAC. Patient has polymicrobial bacterial growth from cultures. (2) Hypertension Qualifiers: Hypertension type: essential hypertension Qualified Code(s): I10 - Essential (primary) hypertension Is this a current diagnosis for this admission?: Yes Plan: Blood pressure is stable (3) Uncontrolled type 2 diabetes mellitus Qualifiers: Diabetes mellitus complication status: with unspecified complications Diabetes mellitus fpc insulin use: without fpc use Qualified Code( s): E11.8 - Type 2 diabetes mellitus with unspecified complications; E11.65 - Type 2 diabetes mellitus with hyperglycemia; E11.65 - Type 2 diabetes mellitus with hyperglycemia; E11.65 - Type 2 diabetes mellitus with hyperglycemia; E11.65 - Type 2 diabetes mellitus with hyperglycemia Is this a current diagnosis for this admission?: Yes Plan: Will continue the Lantus and continue sliding scale insulin. (4) Hyperlipidemia Is this a current diagnosis for this admission?: Yes (5) Peripheral neuropathy Is this a current diagnosis for this admission?: Yes Plan: We will continue gabapentin and increase the amitriptyline as he is having some trouble sleeping at night. - Time Time Spent with patient: 25-34 minutes - Inpatient Certification Medical Necessity: Need Close Monitoring Due to Risk of Patient Decompensation
--- NOTE | 2017-06-01 19:03 | CONSULTATION REPORT E ---
Consultation Report NAME: LEEANNE WYLIE : 1960 AGE: 56Y DATE: 401 A TO: MARICRUZ GALINDO M.D. FROM: Requesting Physician REASON FOR CONSULTATION: Patient seen at the request of the Hospitalist service for right wound. SUMMARY OF CONSULTATION: The patient is a 56-year-old male, well-known to the [facility], who is 1 month status post right fifth ray amputation for osteomyelitis, last performed by Dr. Hampton, who has had wound V.A.C. placement. Complete past medical and surgical history and interval hospital course can be found in his medical records. PHYSICAL EXAMINATION: VITAL SIGNS: Stable. EXTREMITIES: The right foot is examined. The V.A.C. dressing was removed. There was some generalized foul smell to the open wound, which is chronic, granulating. There is no foul smell or active drainage. There is no evidence of cellulitis to the surrounding skin. IMPRESSION: Chronic right foot wound in diabetic with open fifth ray amputation site closing by secondary intention, utilizing wound V.A.C. therapy. RECOMMENDATIONS: 1. Continue wound V.A.C. therapy as directed. 2. No indication for further surgical debridement at this time. 3. Patient to follow up at [facility] after his departure from the hospital. DICTATING PHYSICIAN: MARICRUZ GALINDO M.D. [id number] PHY#: [id number] ID: [id number] JOB#: [id number] ACCT: [id number] cc:MARICRUZ GALINDO M.D. >
[2017-06-01] MEDS: INSULIN GLARGINE,HUM.REC.ANLOG 300 UNIT/3 ML INSULN.PEN SUBCUT SCH (21:44)
[2017-06-01] MEDS: AMITRIPTYLINE HCL 75 MG TABLET PO SCH (21:44)
[2017-06-01] MEDS: ZOLPIDEM TARTRATE 5 MG TABLET PO PRN (21:54)
[2017-06-01] MEDS ORDERED: AMITRIPTYLINE HCL 50 MG TABLET PO SCH (22:00)
[2017-06-02] MEDS: GABAPENTIN 300 MG CAPSULE PO SCH ×5 (00:01→23:09)
[2017-06-02] MEDS: LANSOPRAZOLE 30 MG TAB.RAP.DR PO SCH ×2 (06:14→17:51)
[2017-06-02 06:28] LABS: ABSOLUTE EOSINOPHILS # (AUTO) 0.3 10^3/uL (0.0-0.6); ABSOLUTE LYMPHOCYTES (AUTO) 1.8 10^3/uL (0.5-4.7); ABSOLUTE NEUT (AUTO) 3.5 10^3/uL (1.7-8.2); BASOPHILS % (AUTO) 0.4 % (0-2); EOSINOPHILS % (AUTO) 4.9 % (0-6); HEMATOCRIT 35.5 % (37.9-51.0); HEMOGLOBIN 11.5 g/dL (13.5-17.0); LYMPHOCYTES % (AUTO) 27.5 % (13-45); MEAN CORPUSCULAR HEMOGLOBIN 28.8 pg (27.0-33.4); MEAN CORPUSCULAR HGB CONC 32.4 g/dL (32.0-36.0); MEAN CORPUSCULAR VOLUME 89 fl (80-97); MONOCYTES % (AUTO) 14.5 % (3-13); PLATELET COUNT 187 10^3/uL (150-450); RED BLOOD COUNT 3.99 10^6/uL (4.35-5.55); RED CELL DISTRIBUTION WIDTH 13.9 % (11.5-14.0); SEGMENTED NEUTROPHILS % (AUTO) 52.7 % (42-78); TOTAL CELLS COUNTED % (AUTO) 100 %; WHITE BLOOD COUNT 6.7 10^3/uL (4.0-10.5)
[2017-06-02 07:01] LABS: ANION GAP 10 (5-19); BLOOD UREA NITROGEN 25 mg/dL (7-20); CALCIUM 9.2 mg/dL (8.4-10.2); CARBON DIOXIDE 28 mmol/L (22-30); CHLORIDE 102 mmol/L (98-107); GLUCOSE 250 mg/dL (75-110); POTASSIUM 4.5 mmol/L (3.6-5.0); SODIUM 140.1 mmol/L (137-145)
[2017-06-02] MEDS: POLYETHYLENE GLYCOL 3350 POWDER 17 GM/1 PACKET PO SCH (08:46)
[2017-06-02] MEDS: DOCUSATE SODIUM 100 MG CAPSULE PO SCH (08:46)
[2017-06-02] MEDS: HALOPERIDOL 2 MG TABLET PO SCH ×2 (08:55→22:02)
[2017-06-02] MEDS: METOPROLOL SUCCINATE 25 MG TAB.SR.24H PO SCH (08:55)
[2017-06-02] MEDS: INSULIN LISPRO 100 UNIT/ML 3 ML VIAL SUBCUT SCH ×3 (08:55→17:38)
[2017-06-02] MEDS: HYDROCHLOROTHIAZIDE 12.5 MG CAPSULE PO SCH (08:55)
[2017-06-02] MEDS: INSULIN LISPRO 100 UNIT/ML 3 ML VIAL SUBCUT PRN ×4 (08:55→22:03)
[2017-06-02] MEDS: NORMAL SALINE 10 ML SDV (SCHEDULED) IV SCH ×2 (08:56→22:03)
[2017-06-02] MEDS: ENOXAPARIN SODIUM INJ 40 MG/0.4 ML DISP.SYRIN SUBCUT SCH (08:56)
[2017-06-02] MEDS ORDERED: TRAMADOL HCL 50 MG TABLET PO PRN (13:23)
[2017-06-02] MEDS ORDERED: ACETAMINOPHEN 325 MG TABLET PO PRN (13:24)
[2017-06-02] MEDS ORDERED: METOPROLOL SUCCINATE 25 MG TAB.SR.24H PO SCH (16:26)
--- NOTE | 2017-06-02 16:29 | PDOC PROGRESS REPORT ---
Subjective Progress Note for:: 06/02/17 Subjective:: This is a follow-up visit for diabetic foot ulcer. Currently patient has no complaints. The patient is worried about what will happen to him after discharge. Reason For Visit: DIABETIC FOOT ULCER Physical Exam Vital Signs: Temp Pulse Resp BP Pulse Ox 97.5 F 66 19 160/66 H 100 06/02/17 11:05 06/02/17 11:05 06/02/17 11:05 06/02/17 11:05 06/02/17 11:05 Intake & Output 06/01/17 06/02/17 06/03/17 06:59 06:59 06:59 Intake Total 841 1406 Output Total 400 320 Balance 441 1086 GENERAL: This is a well-developed and nourished appearing -Polish male resting in his bed currently in no acute distress. HEART: Regular rate and rhythm. No murmurs, rubs or gallops. LUNGS: Clear to auscultation bilaterally with equal rise and fall of the chest. ABDOMEN: Soft, nontender, nondistended with normoactive bowel sounds EXTREMETIES: No clubbing, cyanosis. trace to 1+ edema of the right foot. Wound VAC on the right foot is in place. Pulses 2+ NEURO: Awake, alert and oriented 3. Cranial nerves II through XII are grossly intact. Results Laboratory Results: 06/02/17 06:10 06/02/17 06:10 06/02/17 06/02/17 06:10 06:10 WBC 6.7 RBC 3.99 L Hgb 11.5 L Hct 35.5 L MCV 89 MCH 28.8 MCHC 32.4 RDW 13.9 Plt Count 187 Seg Neutrophils % 52.7 Lymphocytes % 27.5 Monocytes % 14.5 H Eosinophils % 4.9 Basophils % 0.4 Absolute Neutrophils 3.5 Absolute Lymphocytes 1.8 Absolute Monocytes 1.0 Absolute Eosinophils 0.3 Absolute Basophils 0.0 Sodium 140.1 Potassium 4.5 Chloride 102 Carbon Dioxide 28 Anion Gap 10 BUN 25 H Creatinine 1.51 H Est GFR ( Amer) 58 L Est GFR (Non-Af Amer) 48 L Glucose 250 H Calcium 9.2 Impressions: Foot X-Ray 05/01/17 14:36 IMPRESSION: PATIENT WITH PRIOR HEALED 4TH AND 5TH METATARSAL FRACTURES WITH SHAGGY APPEARANCE INVOLVING THE FRACTURE SITES WHICH COULD REPRESENT SEQUELA OF THE PRIOR HEALING OR SUPERIMPOSED OSTEOMYELITIS GIVEN PATIENT'S HISTORY OF ULCERATION. MRI IS FOR FURTHER EVALUATION CLINICALLY INDICATED. Lower Extremity MRI 05/01/17 15:51 IMPRESSION: Ulcer over the base of the 5th metatarsal with bony cortical with erosion and abnormal marrow signal in the proximal 2/3 of the 5th metatarsal compatible with osteomyelitis. Guidance Fluoroscopy 05/05/17 00:00 IMPRESSION: Please see combined report for performance of procedure and radiologic supervision and interpretation. Interventional Vascular Procedure 05/05/17 00:00 IMPRESSION: Please see combined report for performance of procedure and radiologic supervision and interpretation. PICC Line Insertion 05/05/17 00:00 IMPRESSION: SUCCESSFUL PLACEMENT OF A 5 FR dual LUMEN 39 CM PICC IN THE basilic VEIN. 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 Wound VAC is in place. All cultures have come back. s/p Levaquin and Augmentin. (2) Hyperlipidemia Is this a current diagnosis for this admission?: Yes (3) Hypertension Qualifiers: Hypertension type: essential hypertension Qualified Code(s): I10 - Essential (primary) hypertension Is this a current diagnosis for this admission?: Yes Plan: Continue Norvasc, HCTZ and metoprolol. Increase metoprolol to 50. (4) Uncontrolled type 2 diabetes mellitus Qualifiers: Diabetes mellitus complication status: with unspecified complications Diabetes mellitus halfway insulin use: without terminal manager use Qualified Code( s): E11.8 - Type 2 diabetes mellitus with unspecified complications; E11.65 - Type 2 diabetes mellitus with hyperglycemia; E11.65 - Type 2 diabetes mellitus with hyperglycemia; E11.65 - Type 2 diabetes mellitus with hyperglycemia; E11.65 - Type 2 diabetes mellitus with hyperglycemia Is this a current diagnosis for this admission?: Yes Plan: Continue Lantus 40 nightly, sliding scale insulin, mealtime insulin. (5) Acute renal failure Is this a current diagnosis for this admission?: Yes Plan: Resolved. I think what we are seeing is his new baseline. Creatinine is currently 1.54. (6) Acute pain Is this a current diagnosis for this admission?: Yes Plan: Patient has acute pain after his amputation. As needed pain medications (7) Anxiety Plan: Continue Xanax as needed. Patient is also receiving Haldol. Will consult psych secondary to previous notions of harming himself. At this point I do not believe the patient to be suicidal. As noted before, however, he has made some indirect comments. Please see previous note - Time Time Spent with patient: 15-24 minutes
[2017-06-02] MEDS: OXYCODONE HCL IR 5 MG TABLET PO PRN (21:57)
[2017-06-02] MEDS: AMITRIPTYLINE HCL 75 MG TABLET PO SCH (22:02)
[2017-06-02] MEDS: METOPROLOL SUCCINATE 50 MG TAB.SR.24H PO SCH (22:02)
[2017-06-02] MEDS: FAMOTIDINE 20 MG TABLET PO SCH (22:03)
[2017-06-02] MEDS: INSULIN GLARGINE,HUM.REC.ANLOG 300 UNIT/3 ML INSULN.PEN SUBCUT SCH (22:03)
[2017-06-03] MEDS: GABAPENTIN 300 MG CAPSULE PO SCH ×4 (05:18→23:37)
[2017-06-03] MEDS: LANSOPRAZOLE 30 MG TAB.RAP.DR PO SCH (05:18)
[2017-06-03] MEDS: OXYCODONE HCL IR 5 MG TABLET PO PRN ×2 (05:19→22:00)
[2017-06-03] MEDS: INSULIN LISPRO 100 UNIT/ML 3 ML VIAL SUBCUT SCH ×3 (07:54→17:37)
[2017-06-03] MEDS: HYDROCHLOROTHIAZIDE 12.5 MG CAPSULE PO SCH (07:54)
[2017-06-03] MEDS: INSULIN LISPRO 100 UNIT/ML 3 ML VIAL SUBCUT PRN ×4 (07:54→22:05)
[2017-06-03] MEDS: ENOXAPARIN SODIUM INJ 40 MG/0.4 ML DISP.SYRIN SUBCUT SCH (09:47)
[2017-06-03] MEDS: METOPROLOL SUCCINATE 50 MG TAB.SR.24H PO SCH ×2 (09:48→22:05)
[2017-06-03] MEDS: AMLODIPINE BESYLATE 10 MG TABLET PO SCH (09:48)
[2017-06-03] MEDS: HALOPERIDOL 2 MG TABLET PO SCH ×2 (09:49→22:04)
[2017-06-03] MEDS: FAMOTIDINE 20 MG TABLET PO SCH ×2 (09:49→22:05)
[2017-06-03] MEDS: NORMAL SALINE 10 ML SDV (SCHEDULED) IV SCH ×2 (09:50→22:05)
[2017-06-03] MEDS: DOCUSATE SODIUM 100 MG CAPSULE PO SCH (09:51)
[2017-06-03] MEDS: POLYETHYLENE GLYCOL 3350 POWDER 17 GM/1 PACKET PO SCH (09:51)
--- NOTE | 2017-06-03 12:12 | PDOC PROGRESS REPORT ---
Subjective Progress Note for:: 06/03/17 Subjective:: This is a follow-up visit for diabetic foot ulcer. Currently patient has no complaints. No acute events overnight. Reason For Visit: DIABETIC FOOT ULCER Physical Exam Vital Signs: Temp Pulse Resp BP Pulse Ox 98.7 F 67 18 140/76 H 99 06/03/17 07:30 06/03/17 07:30 06/03/17 07:30 06/03/17 07:30 06/03/17 07:30 Intake & Output 06/02/17 06/03/17 06/04/17 06:59 06:59 06:59 Intake Total 1406 1529 Output Total 320 380 Balance 1086 1149 GENERAL: This is a well-developed and nourished appearing -[place] male resting in his bed currently in no acute distress. HEART: Regular rate and rhythm. No murmurs, rubs or gallops. LUNGS: Clear to auscultation bilaterally with equal rise and fall of the chest. ABDOMEN: Soft, nontender, nondistended with normoactive bowel sounds EXTREMETIES: No clubbing, cyanosis. 1+ edema of the right foot. Wound VAC on the right foot is in place. Pulses 2+ NEURO: Awake, alert and oriented 3. Cranial nerves II through XII are grossly intact. Results Laboratory Results: 06/02/17 06:10 06/02/17 06:10 Impressions: Foot X-Ray 05/01/17 14:36 IMPRESSION: PATIENT WITH PRIOR HEALED 4TH AND 5TH METATARSAL FRACTURES WITH SHAGGY APPEARANCE INVOLVING THE FRACTURE SITES WHICH COULD REPRESENT SEQUELA OF THE PRIOR HEALING OR SUPERIMPOSED OSTEOMYELITIS GIVEN PATIENT'S HISTORY OF ULCERATION. MRI IS FOR FURTHER EVALUATION CLINICALLY INDICATED. Lower Extremity MRI 05/01/17 15:51 IMPRESSION: Ulcer over the base of the 5th metatarsal with bony cortical with erosion and abnormal marrow signal in the proximal 2/3 of the 5th metatarsal compatible with osteomyelitis. Guidance Fluoroscopy 05/05/17 00:00 IMPRESSION: Please see combined report for performance of procedure and radiologic supervision and interpretation. Interventional Vascular Procedure 05/05/17 00:00 IMPRESSION: Please see combined report for performance of procedure and radiologic supervision and interpretation. PICC Line Insertion 05/05/17 00:00 IMPRESSION: SUCCESSFUL PLACEMENT OF A 5 FR dual LUMEN 39 CM PICC IN THE basilic VEIN. 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 Wound VAC is in place. All cultures have come back. s/p Levaquin and Augmentin. (2) Hyperlipidemia Is this a current diagnosis for this admission?: Yes (3) Hypertension Qualifiers: Hypertension type: essential hypertension Qualified Code(s): I10 - Essential (primary) hypertension Is this a current diagnosis for this admission?: Yes Plan: Continue Norvasc, HCTZ and metoprolol. Increased metoprolol to 50. (4) Uncontrolled type 2 diabetes mellitus Qualifiers: Diabetes mellitus complication status: with unspecified complications Diabetes mellitus snf insulin use: without remote computer terminal operator use Qualified Code( s): E11.8 - Type 2 diabetes mellitus with unspecified complications; E11.65 - Type 2 diabetes mellitus with hyperglycemia; E11.65 - Type 2 diabetes mellitus with hyperglycemia; E11.65 - Type 2 diabetes mellitus with hyperglycemia; E11.65 - Type 2 diabetes mellitus with hyperglycemia Is this a current diagnosis for this admission?: Yes Plan: Continue Lantus 40 nightly, sliding scale insulin, increase mealtime insulin. (5) Acute renal failure Is this a current diagnosis for this admission?: Yes Plan: Resolved. I think what we are seeing is his new baseline. Creatinine is currently 1.54. (6) Acute pain Is this a current diagnosis for this admission?: Yes Plan: Patient has acute pain after his amputation. As needed pain medications (7) Anxiety Plan: Continue Xanax as needed. Patient is also receiving Haldol. Will consult psych secondary to previous notions of harming himself. At this point I do not believe the patient to be suicidal. As noted before, however, he has made some indirect comments. Please see previous note - Time Time Spent with patient: 15-24 minutes
[2017-06-03] MEDS: NORMAL SALINE 10 ML SDV (AFTER EACH USE) IV PRN (22:05)
[2017-06-03] MEDS: INSULIN GLARGINE,HUM.REC.ANLOG 300 UNIT/3 ML INSULN.PEN SUBCUT SCH (22:05)
[2017-06-03] MEDS: AMITRIPTYLINE HCL 75 MG TABLET PO SCH (22:05)
[2017-06-04] MEDS: GABAPENTIN 300 MG CAPSULE PO SCH ×4 (05:07→23:49)
[2017-06-04] MEDS: OXYCODONE HCL IR 5 MG TABLET PO PRN (05:07)
[2017-06-04] MEDS: INSULIN LISPRO 100 UNIT/ML 3 ML VIAL SUBCUT PRN ×3 (08:27→22:10)
[2017-06-04] MEDS: INSULIN LISPRO 100 UNIT/ML 3 ML VIAL SUBCUT SCH ×3 (08:27→16:10)
[2017-06-04] MEDS: HYDROCHLOROTHIAZIDE 12.5 MG CAPSULE PO SCH (08:27)
[2017-06-04] MEDS: POLYETHYLENE GLYCOL 3350 POWDER 17 GM/1 PACKET PO SCH (10:14)
[2017-06-04] MEDS: AMLODIPINE BESYLATE 10 MG TABLET PO SCH (10:21)
[2017-06-04] MEDS: METOPROLOL SUCCINATE 50 MG TAB.SR.24H PO SCH ×2 (10:21→22:11)
[2017-06-04] MEDS: FAMOTIDINE 20 MG TABLET PO SCH ×2 (10:21→22:11)
[2017-06-04] MEDS: HALOPERIDOL 2 MG TABLET PO SCH ×2 (10:22→22:11)
[2017-06-04] MEDS: NORMAL SALINE 10 ML SDV (SCHEDULED) IV SCH (10:22)
--- NOTE | 2017-06-04 16:08 | PDOC PROGRESS REPORT ---
Subjective Progress Note for:: 06/04/17 Subjective:: This is a follow-up visit for diabetic foot ulcer. Currently patient has no complaints. He is washing up at the moment. Reason For Visit: DIABETIC FOOT ULCER Physical Exam Vital Signs: Temp Pulse Resp BP Pulse Ox 98.4 F 69 16 146/74 H 97 06/03/17 23:56 06/03/17 23:56 06/03/17 23:56 06/03/17 23:56 06/03/17 23:56 Intake & Output 06/03/17 06/04/17 06/05/17 06:59 06:59 06:59 Intake Total 1529 960 Output Total 380 Balance 1149 960 GENERAL: This is a well-developed and nourished appearing -[place] male resting in his bed currently in no acute distress. NEURO: Awake, alert and oriented 3. Cranial nerves II through XII are grossly intact. Results Laboratory Results: 06/02/17 06:10 06/02/17 06:10 Impressions: Foot X-Ray 05/01/17 14:36 IMPRESSION: PATIENT WITH PRIOR HEALED 4TH AND 5TH METATARSAL FRACTURES WITH SHAGGY APPEARANCE INVOLVING THE FRACTURE SITES WHICH COULD REPRESENT SEQUELA OF THE PRIOR HEALING OR SUPERIMPOSED OSTEOMYELITIS GIVEN PATIENT'S HISTORY OF ULCERATION. MRI IS FOR FURTHER EVALUATION CLINICALLY INDICATED. Lower Extremity MRI 05/01/17 15:51 IMPRESSION: Ulcer over the base of the 5th metatarsal with bony cortical with erosion and abnormal marrow signal in the proximal 2/3 of the 5th metatarsal compatible with osteomyelitis. Guidance Fluoroscopy 05/05/17 00:00 IMPRESSION: Please see combined report for performance of procedure and radiologic supervision and interpretation. Interventional Vascular Procedure 05/05/17 00:00 IMPRESSION: Please see combined report for performance of procedure and radiologic supervision and interpretation. PICC Line Insertion 05/05/17 00:00 IMPRESSION: SUCCESSFUL PLACEMENT OF A 5 FR dual LUMEN 39 CM PICC IN THE basilic VEIN. 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 Wound VAC is in place. All cultures have come back. s/p Levaquin and Augmentin. (2) Hyperlipidemia Is this a current diagnosis for this admission?: Yes (3) Hypertension Qualifiers: Hypertension type: essential hypertension Qualified Code(s): I10 - Essential (primary) hypertension Is this a current diagnosis for this admission?: Yes Plan: Continue Norvasc, HCTZ and metoprolol. Increased metoprolol to 50. (4) Uncontrolled type 2 diabetes mellitus Qualifiers: Diabetes mellitus complication status: with unspecified complications Diabetes mellitus custodial insulin use: without ad terminal makeup operator use Qualified Code( s): E11.8 - Type 2 diabetes mellitus with unspecified complications; E11.65 - Type 2 diabetes mellitus with hyperglycemia; E11.65 - Type 2 diabetes mellitus with hyperglycemia; E11.65 - Type 2 diabetes mellitus with hyperglycemia; E11.65 - Type 2 diabetes mellitus with hyperglycemia Is this a current diagnosis for this admission?: Yes Plan: Continue Lantus 40 nightly, sliding scale insulin, mealtime insulin. (5) Acute renal failure Is this a current diagnosis for this admission?: Yes Plan: Resolved. I think what we are seeing is his new baseline. Creatinine is currently 1.54. (6) Acute pain Is this a current diagnosis for this admission?: Yes Plan: Patient has acute pain after his amputation. As needed pain medications (7) Anxiety Plan: Continue Xanax as needed. Patient is also receiving Haldol. - Time Time Spent with patient: 15-24 minutes
--- NOTE | 2017-06-04 21:48 | PSYCHOLOGICAL NOTE ---
Psych Note - Psych Note Psych Note: Patient is a 56 year old male who has been admitted to hospitalist services since 05/01/17 for diabetic foot ulcer, hyperlipidemia, HTN, uncontrolled Diabetes II, Acute Renal Failure, acute pain, and anxiety. A psychiatric consult was ordered to address intermittent SI/HI (saying if he didn't get help he ad a .22/saying he would go [place] [employer] style) comments he has made during stay at hospital. He acknowledged making comments mainly at the beginning. He admitted he had been frustrated, upset and scared at the time. He stated [employer] is one of his favorite movies but would never do anything to harm the staff especially given how well he has been taken care of. He stated he does not have a .22 or access. He denied SI/HI. He denied previous MH services to include both outpatient and inpatient. He stated he is sleeping well (noted he has Insomnia typically) so whatever is being prescribed seems to be working. 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 he reported he may have a beer here and there if watching a football game. 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 He identified he made a conscious decision to make a lifestyle change. He stated he has 4 nieces in this area and one in [place], [place]. He talked about reality sinking in about his foot but he is glad he still has half because they could have removed the whole thing. He was aware of the homeless detention to include process of obtaining bed, the soup kitchen, and the [facility]. He stated he just wants a chance to live and take care of himself. He stated if he has a place to live he feels like everything else (work, managing medical issues) would fall into place or be easier to manage. Patient was alert and oriented to person, place, time and situation. Mood was euthymic with congruent affect. He denied SI/HI. He did not appear to be responding to internal stimuli AEB fair eye contact, carrying on dialogue conversation, and reflecting/processing his situation. Thought processes were organized and linear. Conversational speech was WNL for rate, tone and prosody. Intellectual abilities are estimated to be average. Insight, judgment and impulse control were fair AEB reflecting and processing. Diagnosis: V60.0 (Z59.0) Homelessness V63.9 (Z75.3) Unavailability or inaccessibility of health care facilities Multiple significant medical issues (Uncontrolled diabetes II, Acute renal Failure, HTN, Hyperlipidemia) Impression/Plan: Patient is psychiatrically cleared. Spent 30 minutes with patient where he processed his initial frustration the first several days, concern about his next steps moving forward after discharge since he is homeless , his lifestyle change, and wanting food/clothes/detention. He was optimistic in his thinking and future oriented. Consulted with Dr. Desai regarding the management and care of patient. Attending hospitalist aware of recommendation.
[2017-06-04] MEDS: INSULIN GLARGINE,HUM.REC.ANLOG 300 UNIT/3 ML INSULN.PEN SUBCUT SCH (22:10)
[2017-06-04] MEDS: AMITRIPTYLINE HCL 75 MG TABLET PO SCH (22:11)
[2017-06-05] MEDS: GABAPENTIN 300 MG CAPSULE PO SCH ×3 (06:10→18:20)
[2017-06-05] MEDS: INSULIN LISPRO 100 UNIT/ML 3 ML VIAL SUBCUT SCH ×3 (07:59→18:21)
[2017-06-05] MEDS: HYDROCHLOROTHIAZIDE 12.5 MG CAPSULE PO SCH (07:59)
[2017-06-05] MEDS: INSULIN LISPRO 100 UNIT/ML 3 ML VIAL SUBCUT PRN ×4 (08:00→23:12)
[2017-06-05] MEDS: HALOPERIDOL 2 MG TABLET PO SCH ×2 (09:18→23:12)
[2017-06-05] MEDS: METOPROLOL SUCCINATE 50 MG TAB.SR.24H PO SCH ×2 (09:19→23:12)
[2017-06-05] MEDS: AMLODIPINE BESYLATE 10 MG TABLET PO SCH (09:19)
[2017-06-05] MEDS: FAMOTIDINE 20 MG TABLET PO SCH ×2 (09:19→23:11)
[2017-06-05] MEDS: NORMAL SALINE 10 ML SDV (SCHEDULED) IV SCH ×2 (09:20→23:04)
[2017-06-05] MEDS: ENOXAPARIN SODIUM INJ 40 MG/0.4 ML DISP.SYRIN SUBCUT SCH (09:21)
[2017-06-05] MEDS: POLYETHYLENE GLYCOL 3350 POWDER 17 GM/1 PACKET PO SCH (09:26)
--- NOTE | 2017-06-05 14:55 | PDOC PROGRESS REPORT ---
Subjective Progress Note for:: 06/05/17 Subjective:: This is a follow-up visit for diabetic foot ulcer. Currently patient has no complaints. Is wondering if physical therapy is going to come by. He states he is like the nurses to walk with him if they are not. The patient states that he is grateful for having been started on his current medications because he feels better. Reason For Visit: DIABETIC FOOT ULCER Physical Exam Vital Signs: Temp Pulse Resp BP Pulse Ox 98.4 F 77 19 180/66 H 100 06/05/17 11:14 06/05/17 11:14 06/05/17 11:14 06/05/17 11:14 06/05/17 11:14 Intake & Output 06/04/17 06/05/17 06/06/17 06:59 06:59 06:59 Intake Total 960 1332 Balance 960 1332 GENERAL: This is a well-developed and nourished appearing -[place]arshallese male resting on the side of his bed eating lunch currently in no acute distress. HEART: Regular rate and rhythm. No murmurs, rubs or gallops. LUNGS: Clear to auscultation bilaterally with equal rise and fall of the chest. ABDOMEN: Soft, nontender, nondistended with normoactive bowel sounds EXTREMETIES: No clubbing, cyanosis. Trace to 1+ edema of the right foot. Wound VAC on the right foot is in place. Pulses 2+ NEURO: Awake, alert and oriented 3. Cranial nerves II through XII are grossly intact. Results Laboratory Results: 06/02/17 06:10 06/02/17 06:10 Impressions: Foot X-Ray 05/01/17 14:36 IMPRESSION: PATIENT WITH PRIOR HEALED 4TH AND 5TH METATARSAL FRACTURES WITH SHAGGY APPEARANCE INVOLVING THE FRACTURE SITES WHICH COULD REPRESENT SEQUELA OF THE PRIOR HEALING OR SUPERIMPOSED OSTEOMYELITIS GIVEN PATIENT'S HISTORY OF ULCERATION. MRI IS FOR FURTHER EVALUATION CLINICALLY INDICATED. Lower Extremity MRI 05/01/17 15:51 IMPRESSION: Ulcer over the base of the 5th metatarsal with bony cortical with erosion and abnormal marrow signal in the proximal 2/3 of the 5th metatarsal compatible with osteomyelitis. Guidance Fluoroscopy 05/05/17 00:00 IMPRESSION: Please see combined report for performance of procedure and radiologic supervision and interpretation. Interventional Vascular Procedure 05/05/17 00:00 IMPRESSION: Please see combined report for performance of procedure and radiologic supervision and interpretation. PICC Line Insertion 05/05/17 00:00 IMPRESSION: SUCCESSFUL PLACEMENT OF A 5 FR dual LUMEN 39 CM PICC IN THE basilic VEIN. 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 Wound VAC is in place. All cultures have come back. s/p Levaquin and Augmentin. (2) Hyperlipidemia Is this a current diagnosis for this admission?: Yes (3) Hypertension Qualifiers: Hypertension type: essential hypertension Qualified Code(s): I10 - Essential (primary) hypertension Is this a current diagnosis for this admission?: Yes Plan: Continue Norvasc, HCTZ and metoprolol. I (4) Uncontrolled type 2 diabetes mellitus Qualifiers: Diabetes mellitus complication status: with unspecified complications Diabetes mellitus termite renewal inspector insulin use: without prison use Qualified Code( s): E11.8 - Type 2 diabetes mellitus with unspecified complications; E11.65 - Type 2 diabetes mellitus with hyperglycemia; E11.65 - Type 2 diabetes mellitus with hyperglycemia; E11.65 - Type 2 diabetes mellitus with hyperglycemia; E11.65 - Type 2 diabetes mellitus with hyperglycemia Is this a current diagnosis for this admission?: Yes Plan: Continue Lantus 40 nightly, sliding scale insulin, mealtime insulin. (5) Acute renal failure Is this a current diagnosis for this admission?: Yes Plan: Resolved. I think what we are seeing is his new baseline. Creatinine is currently 1.54. (6) Acute pain Is this a current diagnosis for this admission?: Yes Plan: Patient has acute pain after his amputation. As needed pain medications (7) Anxiety Plan: Continue Xanax as needed. Patient is also receiving Haldol. - Time Time Spent with patient: Less than 15 minutes
[2017-06-05] MEDS: ZOLPIDEM TARTRATE 5 MG TABLET PO PRN (23:03)
[2017-06-05] MEDS: INSULIN GLARGINE,HUM.REC.ANLOG 300 UNIT/3 ML INSULN.PEN SUBCUT SCH (23:12)
[2017-06-05] MEDS: AMITRIPTYLINE HCL 75 MG TABLET PO SCH (23:12)
[2017-06-06] MEDS: GABAPENTIN 300 MG CAPSULE PO SCH ×4 (00:04→16:51)
[2017-06-06] MEDS: OXYCODONE HCL IR 5 MG TABLET PO PRN (00:04)
[2017-06-06] MEDS: ENOXAPARIN SODIUM INJ 40 MG/0.4 ML DISP.SYRIN SUBCUT SCH (08:43)
[2017-06-06] MEDS: POLYETHYLENE GLYCOL 3350 POWDER 17 GM/1 PACKET PO SCH (08:43)
[2017-06-06] MEDS: AMLODIPINE BESYLATE 10 MG TABLET PO SCH (09:08)
[2017-06-06] MEDS: INSULIN LISPRO 100 UNIT/ML 3 ML VIAL SUBCUT PRN ×4 (09:08→22:43)
[2017-06-06] MEDS: INSULIN LISPRO 100 UNIT/ML 3 ML VIAL SUBCUT SCH ×3 (09:08→16:51)
[2017-06-06] MEDS: HALOPERIDOL 2 MG TABLET PO SCH ×2 (09:10→22:35)
[2017-06-06] MEDS: HYDROCHLOROTHIAZIDE 12.5 MG CAPSULE PO SCH (09:10)
[2017-06-06] MEDS: FAMOTIDINE 20 MG TABLET PO SCH ×2 (09:10→22:35)
[2017-06-06] MEDS: NORMAL SALINE 10 ML SDV (SCHEDULED) IV SCH ×2 (09:11→22:35)
[2017-06-06] MEDS: METOPROLOL SUCCINATE 50 MG TAB.SR.24H PO SCH ×2 (09:11→22:35)
[2017-06-06] MEDS: INSULIN GLARGINE,HUM.REC.ANLOG 300 UNIT/3 ML INSULN.PEN SUBCUT SCH (22:35)
[2017-06-06] MEDS: AMITRIPTYLINE HCL 75 MG TABLET PO SCH (22:35)
[2017-06-06] MEDS ORDERED: INSULIN LISPRO 100 UNIT/ML 3 ML VIAL SUBCUT ONE (23:00)
[2017-06-07] MEDS: GABAPENTIN 300 MG CAPSULE PO SCH ×5 (00:58→23:19)
[2017-06-07] MEDS: INSULIN LISPRO 100 UNIT/ML 3 ML VIAL SUBCUT SCH ×3 (07:41→17:42)
[2017-06-07] MEDS: HYDROCHLOROTHIAZIDE 12.5 MG CAPSULE PO SCH (07:41)
[2017-06-07] MEDS: POLYETHYLENE GLYCOL 3350 POWDER 17 GM/1 PACKET PO SCH (10:22)
[2017-06-07] MEDS: ENOXAPARIN SODIUM INJ 40 MG/0.4 ML DISP.SYRIN SUBCUT SCH (10:23)
[2017-06-07] MEDS: AMLODIPINE BESYLATE 10 MG TABLET PO SCH (10:23)
[2017-06-07] MEDS: HALOPERIDOL 2 MG TABLET PO SCH ×2 (10:23→21:42)
[2017-06-07] MEDS: FAMOTIDINE 20 MG TABLET PO SCH ×2 (10:23→21:42)
[2017-06-07] MEDS: METOPROLOL SUCCINATE 50 MG TAB.SR.24H PO SCH ×2 (10:24→21:42)
[2017-06-07] MEDS: OXYCODONE HCL IR 5 MG TABLET PO PRN ×2 (10:24→17:41)
[2017-06-07] MEDS: NORMAL SALINE 10 ML SDV (SCHEDULED) IV SCH ×2 (10:25→21:43)
[2017-06-07] MEDS: INSULIN LISPRO 100 UNIT/ML 3 ML VIAL SUBCUT PRN ×3 (11:44→21:44)
--- NOTE | 2017-06-07 18:39 | PDOC PROGRESS REPORT ---
Subjective Progress Note for:: 06/07/17 Subjective:: This is a follow-up visit for diabetic foot ulcer. Currently patient has no complaints. He asks if it is okay to walk with the tech. Reason For Visit: DIABETIC FOOT ULCER Physical Exam Vital Signs: Temp Pulse Resp BP Pulse Ox 98.8 F 67 16 159/72 H 100 06/06/17 07:45 06/06/17 07:45 06/06/17 07:45 06/06/17 07:45 06/06/17 07:45 Intake & Output 06/05/17 06/06/17 06/07/17 06:59 06:59 06:59 Intake Total 1332 1396 Output Total 900 Balance 1332 496 Weight 87.5 kg GENERAL: This is a well-developed and nourished appearing -[place] male resting in bed currently in no acute distress. HEART: Regular rate and rhythm. No murmurs, rubs or gallops. LUNGS: Clear to auscultation bilaterally with equal rise and fall of the chest. ABDOMEN: Soft, nontender, nondistended with normoactive bowel sounds EXTREMETIES: No clubbing, cyanosis. Trace to 1+ edema of the right foot. Wound VAC on the right foot is in place. Pulses 2+ NEURO: Awake, alert and oriented 3. Cranial nerves II through XII are grossly intact. Results Laboratory Results: 06/02/17 06:10 06/02/17 06:10 Impressions: Foot X-Ray 05/01/17 14:36 IMPRESSION: PATIENT WITH PRIOR HEALED 4TH AND 5TH METATARSAL FRACTURES WITH SHAGGY APPEARANCE INVOLVING THE FRACTURE SITES WHICH COULD REPRESENT SEQUELA OF THE PRIOR HEALING OR SUPERIMPOSED OSTEOMYELITIS GIVEN PATIENT'S HISTORY OF ULCERATION. MRI IS FOR FURTHER EVALUATION CLINICALLY INDICATED. Lower Extremity MRI 05/01/17 15:51 IMPRESSION: Ulcer over the base of the 5th metatarsal with bony cortical with erosion and abnormal marrow signal in the proximal 2/3 of the 5th metatarsal compatible with osteomyelitis. Guidance Fluoroscopy 05/05/17 00:00 IMPRESSION: Please see combined report for performance of procedure and radiologic supervision and interpretation. Interventional Vascular Procedure 05/05/17 00:00 IMPRESSION: Please see combined report for performance of procedure and radiologic supervision and interpretation. PICC Line Insertion 05/05/17 00:00 IMPRESSION: SUCCESSFUL PLACEMENT OF A 5 FR dual LUMEN 39 CM PICC IN THE basilic VEIN. 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 Wound VAC is in place. All cultures have come back. s/p Levaquin and Augmentin. (2) Hyperlipidemia Is this a current diagnosis for this admission?: Yes (3) Hypertension Qualifiers: Hypertension type: essential hypertension Qualified Code(s): I10 - Essential (primary) hypertension Is this a current diagnosis for this admission?: Yes Plan: Continue Norvasc, HCTZ and metoprolol. (4) Uncontrolled type 2 diabetes mellitus Qualifiers: Diabetes mellitus complication status: with unspecified complications Diabetes mellitus terminal gauger insulin use: without terminal gauger use Qualified Code( s): E11.8 - Type 2 diabetes mellitus with unspecified complications; E11.65 - Type 2 diabetes mellitus with hyperglycemia; E11.65 - Type 2 diabetes mellitus with hyperglycemia; E11.65 - Type 2 diabetes mellitus with hyperglycemia; E11.65 - Type 2 diabetes mellitus with hyperglycemia Is this a current diagnosis for this admission?: Yes Plan: Continue Lantus 40 nightly, sliding scale insulin, mealtime insulin. (5) Acute renal failure Is this a current diagnosis for this admission?: Yes Plan: Resolved. I think what we are seeing is his new baseline. Creatinine is currently 1.54. (6) Acute pain Is this a current diagnosis for this admission?: Yes Plan: Patient has acute pain after his amputation. As needed pain medications (7) Anxiety Plan: Continue Xanax as needed. Patient is also receiving Haldol. - Time Time Spent with patient: Less than 15 minutes
--- NOTE | 2017-06-07 18:41 | PDOC PROGRESS REPORT ---
Subjective Progress Note for:: 06/07/17 Subjective:: This is a follow-up visit for diabetic foot ulcer. Currently patient has no complaints. He asks if it is okay for him to go outside for fresh air. Reason For Visit: DIABETIC FOOT ULCER Physical Exam Vital Signs: Temp Pulse Resp BP Pulse Ox 98.4 F 65 16 151/65 H 100 06/07/17 11:27 06/07/17 11:27 06/07/17 11:27 06/07/17 11:27 06/07/17 11:27 Intake & Output 06/06/17 06/07/17 06/08/17 06:59 06:59 06:59 Intake Total 1396 692 Output Total 900 300 Balance 496 392 Weight 87.5 kg GENERAL: This is a well-developed and nourished appearing -Hungarian male resting in bed in no acute distress. The patient sits up on the side of the bed for his examination. HEART: Regular rate and rhythm. No murmurs, rubs or gallops. LUNGS: Clear to auscultation bilaterally with equal rise and fall of the chest. ABDOMEN: Soft, nontender, nondistended with normoactive bowel sounds EXTREMETIES: No clubbing, cyanosis. Trace to 1+ edema of the right foot. Wound VAC on the right foot is in place. Pulses 2+ NEURO: Awake, alert and oriented 3. Cranial nerves II through XII are grossly intact. Results Laboratory Results: 06/02/17 06:10 06/02/17 06:10 Impressions: Foot X-Ray 05/01/17 14:36 IMPRESSION: PATIENT WITH PRIOR HEALED 4TH AND 5TH METATARSAL FRACTURES WITH SHAGGY APPEARANCE INVOLVING THE FRACTURE SITES WHICH COULD REPRESENT SEQUELA OF THE PRIOR HEALING OR SUPERIMPOSED OSTEOMYELITIS GIVEN PATIENT'S HISTORY OF ULCERATION. MRI IS FOR FURTHER EVALUATION CLINICALLY INDICATED. Lower Extremity MRI 05/01/17 15:51 IMPRESSION: Ulcer over the base of the 5th metatarsal with bony cortical with erosion and abnormal marrow signal in the proximal 2/3 of the 5th metatarsal compatible with osteomyelitis. Guidance Fluoroscopy 05/05/17 00:00 IMPRESSION: Please see combined report for performance of procedure and radiologic supervision and interpretation. Interventional Vascular Procedure 05/05/17 00:00 IMPRESSION: Please see combined report for performance of procedure and radiologic supervision and interpretation. PICC Line Insertion 05/05/17 00:00 IMPRESSION: SUCCESSFUL PLACEMENT OF A 5 FR dual LUMEN 39 CM PICC IN THE basilic VEIN. 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 Wound VAC is in place. All cultures have come back. s/p Levaquin and Augmentin. (2) Hyperlipidemia Is this a current diagnosis for this admission?: Yes (3) Hypertension Qualifiers: Hypertension type: essential hypertension Qualified Code(s): I10 - Essential (primary) hypertension Is this a current diagnosis for this admission?: Yes Plan: Continue Norvasc, HCTZ and metoprolol. (4) Uncontrolled type 2 diabetes mellitus Qualifiers: Diabetes mellitus complication status: with unspecified complications Diabetes mellitus fci insulin use: without joint terminal attack controller use Qualified Code( s): E11.8 - Type 2 diabetes mellitus with unspecified complications; E11.65 - Type 2 diabetes mellitus with hyperglycemia; E11.65 - Type 2 diabetes mellitus with hyperglycemia; E11.65 - Type 2 diabetes mellitus with hyperglycemia; E11.65 - Type 2 diabetes mellitus with hyperglycemia Is this a current diagnosis for this admission?: Yes Plan: Continue Lantus 40 nightly, sliding scale insulin, mealtime insulin. (5) Acute renal failure Is this a current diagnosis for this admission?: Yes Plan: Resolved. I think what we are seeing is his new baseline. Creatinine is currently (6) Acute pain Is this a current diagnosis for this admission?: Yes Plan: Patient has acute pain after his amputation. As needed pain medications (7) Anxiety Plan: Continue Xanax as needed. Patient is also receiving Haldol. - Time Time Spent with patient: Less than 15 minutes
[2017-06-07] MEDS: AMITRIPTYLINE HCL 75 MG TABLET PO SCH (21:42)
[2017-06-07] MEDS: INSULIN GLARGINE,HUM.REC.ANLOG 300 UNIT/3 ML INSULN.PEN SUBCUT SCH (21:43)
[2017-06-08] MEDS: GABAPENTIN 300 MG CAPSULE PO SCH ×3 (05:52→17:13)
[2017-06-08] MEDS: INSULIN LISPRO 100 UNIT/ML 3 ML VIAL SUBCUT SCH ×3 (07:44→17:15)
[2017-06-08] MEDS: INSULIN LISPRO 100 UNIT/ML 3 ML VIAL SUBCUT PRN ×4 (07:44→21:44)
[2017-06-08] MEDS: HYDROCHLOROTHIAZIDE 12.5 MG CAPSULE PO SCH (07:44)
[2017-06-08] MEDS: FAMOTIDINE 20 MG TABLET PO SCH ×2 (11:03→21:44)
[2017-06-08] MEDS: AMLODIPINE BESYLATE 10 MG TABLET PO SCH (11:03)
[2017-06-08] MEDS: METOPROLOL SUCCINATE 50 MG TAB.SR.24H PO SCH ×2 (11:04→21:44)
[2017-06-08] MEDS: HALOPERIDOL 2 MG TABLET PO SCH ×2 (11:04→21:44)
[2017-06-08] MEDS: POLYETHYLENE GLYCOL 3350 POWDER 17 GM/1 PACKET PO SCH (11:05)
[2017-06-08] MEDS: ENOXAPARIN SODIUM INJ 40 MG/0.4 ML DISP.SYRIN SUBCUT SCH (11:05)
[2017-06-08] MEDS: NORMAL SALINE 10 ML SDV (SCHEDULED) IV SCH ×2 (11:05→21:44)
[2017-06-08] MEDS: OXYCODONE HCL IR 5 MG TABLET PO PRN (13:57)
--- NOTE | 2017-06-08 15:07 | PDOC PROGRESS REPORT ---
Subjective Progress Note for:: 06/08/17 Subjective:: This is a follow-up visit for diabetic foot ulcer. Currently patient has no complaints. No acute events overnight. The patient enjoyed going out and getting fresh air yesterday. Reason For Visit: DIABETIC FOOT ULCER Physical Exam Vital Signs: Temp Pulse Resp BP Pulse Ox 98.4 F 72 18 151/65 H 98 06/08/17 11:13 06/08/17 11:13 06/08/17 11:13 06/08/17 11:13 06/08/17 11:13 Intake & Output 06/07/17 06/08/17 06/09/17 06:59 06:59 06:59 Intake Total 692 600 Output Total 300 300 Balance 392 300 GENERAL: This is a well-developed and nourished appearing -Portuguese male resting in bed in no acute distress. HEART: Regular rate and rhythm. No murmurs, rubs or gallops. LUNGS: Clear to auscultation bilaterally with equal rise and fall of the chest. ABDOMEN: Soft, nontender, nondistended with normoactive bowel sounds EXTREMETIES: No clubbing, cyanosis. Trace to 1+ edema of the right foot. Wound VAC on the right foot is in place. Pulses 2+ NEURO: Awake, alert and oriented 3. Cranial nerves II through XII are grossly intact. Results Laboratory Results: 06/02/17 06:10 06/02/17 06:10 Impressions: Foot X-Ray 05/01/17 14:36 IMPRESSION: PATIENT WITH PRIOR HEALED 4TH AND 5TH METATARSAL FRACTURES WITH SHAGGY APPEARANCE INVOLVING THE FRACTURE SITES WHICH COULD REPRESENT SEQUELA OF THE PRIOR HEALING OR SUPERIMPOSED OSTEOMYELITIS GIVEN PATIENT'S HISTORY OF ULCERATION. MRI IS FOR FURTHER EVALUATION CLINICALLY INDICATED. Lower Extremity MRI 05/01/17 15:51 IMPRESSION: Ulcer over the base of the 5th metatarsal with bony cortical with erosion and abnormal marrow signal in the proximal 2/3 of the 5th metatarsal compatible with osteomyelitis. Guidance Fluoroscopy 05/05/17 00:00 IMPRESSION: Please see combined report for performance of procedure and radiologic supervision and interpretation. Interventional Vascular Procedure 05/05/17 00:00 IMPRESSION: Please see combined report for performance of procedure and radiologic supervision and interpretation. PICC Line Insertion 05/05/17 00:00 IMPRESSION: SUCCESSFUL PLACEMENT OF A 5 FR dual LUMEN 39 CM PICC IN THE basilic VEIN. 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 Wound VAC is in place. All cultures have come back. s/p Levaquin and Augmentin. (2) Hyperlipidemia Is this a current diagnosis for this admission?: Yes (3) Hypertension Qualifiers: Hypertension type: essential hypertension Qualified Code(s): I10 - Essential (primary) hypertension Is this a current diagnosis for this admission?: Yes Plan: Continue Norvasc, HCTZ and metoprolol. Increased metoprolol to 50. (4) Uncontrolled type 2 diabetes mellitus Qualifiers: Diabetes mellitus complication status: with unspecified complications Diabetes mellitus prison insulin use: without terminal manager use Qualified Code( s): E11.8 - Type 2 diabetes mellitus with unspecified complications; E11.65 - Type 2 diabetes mellitus with hyperglycemia; E11.65 - Type 2 diabetes mellitus with hyperglycemia; E11.65 - Type 2 diabetes mellitus with hyperglycemia; E11.65 - Type 2 diabetes mellitus with hyperglycemia Is this a current diagnosis for this admission?: Yes Plan: Continue Lantus 40 nightly, sliding scale insulin, increase mealtime insulin. (5) Acute renal failure Is this a current diagnosis for this admission?: Yes Plan: Resolved. I think what we are seeing is his new baseline. Creatinine is currently 1.54. (6) Acute pain Is this a current diagnosis for this admission?: Yes Plan: Patient has acute pain after his amputation. As needed pain medications (7) Anxiety Plan: Continue Xanax as needed. Patient is also receiving Haldol. Will consult psych secondary to previous notions of harming himself. At this point I do not believe the patient to be suicidal. As noted before, however, he has made some indirect comments. Please see previous note - Time Time Spent with patient: Less than 15 minutes - Inpatient Certification Based on my medical assessment, after consideration of the patient's comorbidities, presenting symptoms, or acuity I expect that the services needed warrant INPATIENT care.: Yes
[2017-06-08] MEDS: INSULIN GLARGINE,HUM.REC.ANLOG 300 UNIT/3 ML INSULN.PEN SUBCUT SCH (21:44)
[2017-06-08] MEDS: AMITRIPTYLINE HCL 75 MG TABLET PO SCH (21:44)
[2017-06-09] MEDS: GABAPENTIN 300 MG CAPSULE PO SCH ×4 (00:26→18:28)
[2017-06-09 05:50] LABS: ABSOLUTE EOSINOPHILS # (AUTO) 0.3 10^3/uL (0.0-0.6); ABSOLUTE LYMPHOCYTES (AUTO) 1.8 10^3/uL (0.5-4.7); ABSOLUTE NEUT (AUTO) 3.5 10^3/uL (1.7-8.2); BASOPHILS % (AUTO) 0.4 % (0-2); EOSINOPHILS % (AUTO) 4.5 % (0-6); HEMATOCRIT 35.4 % (37.9-51.0); HEMOGLOBIN 11.8 g/dL (13.5-17.0); MEAN CORPUSCULAR HEMOGLOBIN 29.3 pg (27.0-33.4); MEAN CORPUSCULAR HGB CONC 33.5 g/dL (32.0-36.0); MEAN CORPUSCULAR VOLUME 87 fl (80-97); MONOCYTES % (AUTO) 14.5 % (3-13); PLATELET COUNT 195 10^3/uL (150-450); RED BLOOD COUNT 4.04 10^6/uL (4.35-5.55); RED CELL DISTRIBUTION WIDTH 13.8 % (11.5-14.0); SEGMENTED NEUTROPHILS % (AUTO) 52.6 % (42-78); TOTAL CELLS COUNTED % (AUTO) 100 %; WHITE BLOOD COUNT 6.6 10^3/uL (4.0-10.5)
[2017-06-09 06:00] LABS: ANION GAP 10 (5-19); BLOOD UREA NITROGEN 28 mg/dL (7-20); CALCIUM 9.6 mg/dL (8.4-10.2); CARBON DIOXIDE 30 mmol/L (22-30); CHLORIDE 99 mmol/L (98-107); GLUCOSE 221 mg/dL (75-110); POTASSIUM 4.3 mmol/L (3.6-5.0); SODIUM 138.8 mmol/L (137-145)
[2017-06-09] MEDS ORDERED: INSULIN GLARGINE,HUM.REC.ANLOG 300 UNIT/3 ML INSULN.PEN SUBCUT SCH (11:43)
[2017-06-09] MEDS: FAMOTIDINE 20 MG TABLET PO SCH ×2 (12:38→22:53)
[2017-06-09] MEDS: ENOXAPARIN SODIUM INJ 40 MG/0.4 ML DISP.SYRIN SUBCUT SCH (12:38)
[2017-06-09] MEDS: AMLODIPINE BESYLATE 10 MG TABLET PO SCH (12:39)
[2017-06-09] MEDS: HALOPERIDOL 2 MG TABLET PO SCH ×2 (12:39→22:54)
[2017-06-09] MEDS: METOPROLOL SUCCINATE 50 MG TAB.SR.24H PO SCH ×2 (12:48→22:53)
[2017-06-09] MEDS: POLYETHYLENE GLYCOL 3350 POWDER 17 GM/1 PACKET PO SCH (12:48)
[2017-06-09] MEDS: HYDROCHLOROTHIAZIDE 12.5 MG CAPSULE PO SCH (12:49)
[2017-06-09] MEDS: OXYCODONE HCL IR 5 MG TABLET PO PRN (12:49)
[2017-06-09] MEDS: NORMAL SALINE 10 ML SDV (SCHEDULED) IV SCH ×2 (12:52→22:54)
[2017-06-09] MEDS: INSULIN LISPRO 100 UNIT/ML 3 ML VIAL SUBCUT SCH ×2 (12:53→16:47)
[2017-06-09] MEDS: INSULIN LISPRO 100 UNIT/ML 3 ML VIAL SUBCUT PRN ×3 (12:54→22:53)
--- NOTE | 2017-06-09 12:55 | PDOC PROGRESS REPORT ---
Subjective Progress Note for:: 06/09/17 Subjective:: This is a follow-up visit for diabetic foot ulcer. Currently patient has no complaints. The patient had permission to go downstairs. However I was informed that the patient had been going downstairs while trying to ambulate on his foot. Patient is restricted to the floor at this point until a wheelchair can be obtained for him. Reason For Visit: DIABETIC FOOT ULCER Physical Exam Vital Signs: Temp Pulse Resp BP Pulse Ox 98.8 F 62 19 149/70 H 97 06/09/17 08:00 06/09/17 08:00 06/09/17 08:00 06/09/17 08:00 06/09/17 08:00 Intake & Output 06/08/17 06/09/17 06/10/17 06:59 06:59 06:59 Intake Total 600 861 Output Total 300 300 Balance 300 561 GENERAL: This is a well-developed and nourished appearing -Polish male resting in bed in no acute distress. HEART: Regular rate and rhythm. No murmurs, rubs or gallops. LUNGS: Clear to auscultation bilaterally with equal rise and fall of the chest. ABDOMEN: Soft, nontender, nondistended with normoactive bowel sounds EXTREMETIES: No clubbing, cyanosis. Trace to 1+ edema of the right foot. Wound VAC on the right foot is in place. Pulses 2+ NEURO: Awake, alert and oriented 3. Cranial nerves II through XII are grossly intact. Results Laboratory Results: 06/09/17 05:25 06/09/17 05:25 06/09/17 06/09/17 05:25 05:25 WBC 6.6 RBC 4.04 L Hgb 11.8 L Hct 35.4 L MCV 87 MCH 29.3 MCHC 33.5 RDW 13.8 Plt Count 195 Seg Neutrophils % 52.6 Lymphocytes % 28.0 Monocytes % 14.5 H Eosinophils % 4.5 Basophils % 0.4 Absolute Neutrophils 3.5 Absolute Lymphocytes 1.8 Absolute Monocytes 1.0 Absolute Eosinophils 0.3 Absolute Basophils 0.0 Sodium 138.8 Potassium 4.3 Chloride 99 Carbon Dioxide 30 Anion Gap 10 BUN 28 H Creatinine 1.48 H Est GFR ( Amer) 59 L Est GFR (Non-Af Amer) 49 L Glucose 221 H Calcium 9.6 Magnesium 2.0 Impressions: Foot X-Ray 05/01/17 14:36 IMPRESSION: PATIENT WITH PRIOR HEALED 4TH AND 5TH METATARSAL FRACTURES WITH SHAGGY APPEARANCE INVOLVING THE FRACTURE SITES WHICH COULD REPRESENT SEQUELA OF THE PRIOR HEALING OR SUPERIMPOSED OSTEOMYELITIS GIVEN PATIENT'S HISTORY OF ULCERATION. MRI IS FOR FURTHER EVALUATION CLINICALLY INDICATED. Lower Extremity MRI 05/01/17 15:51 IMPRESSION: Ulcer over the base of the 5th metatarsal with bony cortical with erosion and abnormal marrow signal in the proximal 2/3 of the 5th metatarsal compatible with osteomyelitis. Guidance Fluoroscopy 05/05/17 00:00 IMPRESSION: Please see combined report for performance of procedure and radiologic supervision and interpretation. Interventional Vascular Procedure 05/05/17 00:00 IMPRESSION: Please see combined report for performance of procedure and radiologic supervision and interpretation. PICC Line Insertion 05/05/17 00:00 IMPRESSION: SUCCESSFUL PLACEMENT OF A 5 FR dual LUMEN 39 CM PICC IN THE basilic VEIN. 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 Wound VAC is in place. s/p Levaquin and Augmentin. (2) Hyperlipidemia Is this a current diagnosis for this admission?: Yes (3) Hypertension Qualifiers: Hypertension type: essential hypertension Qualified Code(s): I10 - Essential (primary) hypertension Is this a current diagnosis for this admission?: Yes Plan: Continue Norvasc, HCTZ and metoprolol. Increase metoprolol to 50. (4) Uncontrolled type 2 diabetes mellitus Qualifiers: Diabetes mellitus complication status: with unspecified complications Diabetes mellitus terminal carman insulin use: without terminal carman use Qualified Code( s): E11.8 - Type 2 diabetes mellitus with unspecified complications; E11.65 - Type 2 diabetes mellitus with hyperglycemia; E11.65 - Type 2 diabetes mellitus with hyperglycemia; E11.65 - Type 2 diabetes mellitus with hyperglycemia; E11.65 - Type 2 diabetes mellitus with hyperglycemia Is this a current diagnosis for this admission?: Yes Plan: Increase Lantus to 50 nightly. Continue sliding scale insulin, increase mealtime insulin. (5) Acute renal failure Is this a current diagnosis for this admission?: Yes Plan: Resolved. I think what we are seeing is his new baseline. Creatinine is currently 1.4 (6) Acute pain Is this a current diagnosis for this admission?: Yes Plan: Patient has acute pain after his amputation. As needed pain medications (7) Anxiety Plan: Continue Xanax as needed. Patient is also receiving Haldol. Will consult psych secondary to previous notions of harming himself. At this point I do not believe the patient to be suicidal. As noted before, however, he has made some indirect comments. Please see previous note - Time Time Spent with patient: 15-24 minutes
[2017-06-09] MEDS: AMITRIPTYLINE HCL 75 MG TABLET PO SCH (22:54)
[2017-06-10] MEDS: GABAPENTIN 300 MG CAPSULE PO SCH ×5 (00:06→22:59)
[2017-06-10] MEDS: INSULIN LISPRO 100 UNIT/ML 3 ML VIAL SUBCUT PRN ×4 (07:46→21:39)
[2017-06-10] MEDS: HYDROCHLOROTHIAZIDE 12.5 MG CAPSULE PO SCH (07:46)
[2017-06-10] MEDS: INSULIN LISPRO 100 UNIT/ML 3 ML VIAL SUBCUT SCH ×3 (07:46→16:37)
[2017-06-10] MEDS: ENOXAPARIN SODIUM INJ 40 MG/0.4 ML DISP.SYRIN SUBCUT SCH (09:17)
[2017-06-10] MEDS: FAMOTIDINE 20 MG TABLET PO SCH ×2 (09:17→21:39)
[2017-06-10] MEDS: AMLODIPINE BESYLATE 10 MG TABLET PO SCH (09:17)
[2017-06-10] MEDS: METOPROLOL SUCCINATE 50 MG TAB.SR.24H PO SCH ×2 (09:18→21:40)
[2017-06-10] MEDS: HALOPERIDOL 2 MG TABLET PO SCH ×2 (09:21→21:40)
[2017-06-10] MEDS: NORMAL SALINE 10 ML SDV (SCHEDULED) IV SCH ×2 (09:21→21:39)
[2017-06-10] MEDS: POLYETHYLENE GLYCOL 3350 POWDER 17 GM/1 PACKET PO SCH (09:22)
--- NOTE | 2017-06-10 13:17 | PDOC PROGRESS REPORT ---
Subjective Progress Note for:: 06/10/17 Subjective:: Patient notes his pain medication fell off and he would like to get it renewed. Continues to complain of chronic aching pain in the foot after the amputation. Otherwise has no complaints. Reason For Visit: DIABETIC FOOT ULCER Physical Exam Vital Signs: Temp Pulse Resp BP Pulse Ox 98.5 F 69 22 H 153/80 H 99 06/10/17 08:00 06/10/17 08:00 06/10/17 08:00 06/10/17 08:00 06/10/17 08:00 Intake & Output 06/09/17 06/10/17 06/11/17 06:59 06:59 06:59 Intake Total 861 1676 Output Total 300 950 Balance 561 726 General appearance: PRESENT: no acute distress Head exam: PRESENT: atraumatic, normocephalic Respiratory exam: PRESENT: unlabored Neurological exam: PRESENT: alert, awake Psychiatric exam: ABSENT: agitated, anxious Results Laboratory Results: 06/09/17 05:25 06/09/17 05:25 Assessment & Plan - Diagnosis (1) Diabetic foot infection Is this a current diagnosis for this admission?: Yes (2) Acute pain Is this a current diagnosis for this admission?: Yes (3) Acute renal failure Is this a current diagnosis for this admission?: Yes (4) Hyperlipidemia Is this a current diagnosis for this admission?: Yes (5) Hypertension Qualifiers: Hypertension type: essential hypertension Qualified Code(s): I10 - Essential (primary) hypertension Is this a current diagnosis for this admission?: Yes (6) Uncontrolled type 2 diabetes mellitus Qualifiers: Diabetes mellitus complication status: with unspecified complications Diabetes mellitus laborer marine terminal insulin use: without assisted use Qualified Code( s): E11.8 - Type 2 diabetes mellitus with unspecified complications; E11.65 - Type 2 diabetes mellitus with hyperglycemia; E11.65 - Type 2 diabetes mellitus with hyperglycemia; E11.65 - Type 2 diabetes mellitus with hyperglycemia; E11.65 - Type 2 diabetes mellitus with hyperglycemia Is this a current diagnosis for this admission?: Yes - Time Time Spent with patient: Less than 15 minutes - Plan Summary Plan Summary: We will renew his pain medication, increase his Lantus dose for better control his blood sugars, otherwise continue current regimen.
[2017-06-10] MEDS: OXYCODONE HCL IR 5 MG TABLET PO PRN (16:39)
[2017-06-10] MEDS: AMITRIPTYLINE HCL 75 MG TABLET PO SCH (21:40)
[2017-06-10] MEDS: INSULIN GLARGINE,HUM.REC.ANLOG 300 UNIT/3 ML INSULN.PEN SUBCUT SCH (22:59)
[2017-06-11] MEDS: GABAPENTIN 300 MG CAPSULE PO SCH ×4 (05:43→23:19)
[2017-06-11] MEDS: INSULIN LISPRO 100 UNIT/ML 3 ML VIAL SUBCUT SCH ×3 (08:00→16:28)
[2017-06-11] MEDS: INSULIN LISPRO 100 UNIT/ML 3 ML VIAL SUBCUT PRN ×4 (08:00→21:46)
[2017-06-11] MEDS: HYDROCHLOROTHIAZIDE 12.5 MG CAPSULE PO SCH (08:02)
[2017-06-11] MEDS: HALOPERIDOL 2 MG TABLET PO SCH ×2 (10:34→21:45)
[2017-06-11] MEDS: AMLODIPINE BESYLATE 10 MG TABLET PO SCH (10:34)
[2017-06-11] MEDS: ENOXAPARIN SODIUM INJ 40 MG/0.4 ML DISP.SYRIN SUBCUT SCH (10:34)
[2017-06-11] MEDS: METOPROLOL SUCCINATE 50 MG TAB.SR.24H PO SCH ×2 (10:35→21:46)
[2017-06-11] MEDS: FAMOTIDINE 20 MG TABLET PO SCH ×2 (10:35→21:46)
[2017-06-11] MEDS: NORMAL SALINE 10 ML SDV (SCHEDULED) IV SCH ×2 (10:36→21:46)
[2017-06-11] MEDS: POLYETHYLENE GLYCOL 3350 POWDER 17 GM/1 PACKET PO SCH (10:36)
[2017-06-11] MEDS: OXYCODONE HCL IR 5 MG TABLET PO PRN (10:43)
--- NOTE | 2017-06-11 15:34 | PDOC PROGRESS REPORT ---
Subjective Progress Note for:: 06/11/17 Subjective:: Patient reports the wound VAC is no longer working as there is a foul odor coming from his foot and he has removed it. Previously Dr. De La Cruz and other staff noted the patient would disconnect the wound VAC to go downstairs for some sunshine and continued to walk on the foot in spite of instructions not to do so. He denies fever, chills, worsening pain in the foot, redness, swelling. Reason For Visit: DIABETIC FOOT ULCER Physical Exam Vital Signs: Temp Pulse Resp BP Pulse Ox 98.7 F 67 17 146/68 H 99 06/11/17 12:00 06/11/17 12:00 06/11/17 12:00 06/11/17 12:00 06/11/17 12:00 Intake & Output 06/10/17 06/11/17 06/12/17 06:59 06:59 06:59 Intake Total 1676 1010 Output Total 950 510 Balance 726 500 General appearance: PRESENT: no acute distress, well-developed, well-nourished Eye exam: PRESENT: EOMI. ABSENT: scleral icterus Mouth exam: PRESENT: moist Respiratory exam: PRESENT: clear to auscultation manuel, unlabored. ABSENT: accessory muscle use, rhonchi, wheezes GI/Abdominal exam: PRESENT: normal bowel sounds, soft. ABSENT: tenderness Extremities exam: PRESENT: other - Foot is heavily bandaged and he asked that I not unwrap the bandage because his nurse was coming in to change the wound VAC and scrubbed the wound and he would did not want to have it done twice. There is a foul odor evident in the room. I spoke with the nurse after dressing change and she reports a 10 x 3 cm narrow, shallow wound with beefy red cannulation tissue heaped up edges some central clearing and a fluid collection along the outer edge of the foot separate from the wound that was producing a foul odor. There is no obvious exudate from the wound. Neurological exam: PRESENT: alert, awake, oriented to person, oriented to place , oriented to time Results Laboratory Results: 06/09/17 05:25 06/09/17 05:25 Assessment & Plan - Diagnosis (1) Diabetic foot infection Is this a current diagnosis for this admission?: Yes Plan: osteomyelitis with asct'd cellulitis 2/2 polymicrobial infection s/p amputation of offending digit; continue wound vac and IV abx for minimum of 6 weeks and then reevaluate. We will need counseled patient again regarding compliance with nursing direction including the use of the wound VAC and nonambulatory status. (2) Acute pain Is this a current diagnosis for this admission?: Yes (3) Acute renal failure Is this a current diagnosis for this admission?: Yes (4) Hyperlipidemia Is this a current diagnosis for this admission?: Yes (5) Hypertension Qualifiers: Hypertension type: essential hypertension Qualified Code(s): I10 - Essential (primary) hypertension Is this a current diagnosis for this admission?: Yes (6) Uncontrolled type 2 diabetes mellitus Qualifiers: Diabetes mellitus complication status: with unspecified complications Diabetes mellitus top cleaner insulin use: without top cleaner use Qualified Code( s): E11.8 - Type 2 diabetes mellitus with unspecified complications; E11.65 - Type 2 diabetes mellitus with hyperglycemia; E11.65 - Type 2 diabetes mellitus with hyperglycemia; E11.65 - Type 2 diabetes mellitus with hyperglycemia; E11.65 - Type 2 diabetes mellitus with hyperglycemia Is this a current diagnosis for this admission?: Yes - Time Time Spent with patient: 25-34 minutes
[2017-06-11] MEDS: AMITRIPTYLINE HCL 75 MG TABLET PO SCH (21:45)
[2017-06-11] MEDS: INSULIN GLARGINE,HUM.REC.ANLOG 300 UNIT/3 ML INSULN.PEN SUBCUT SCH (21:45)
[2017-06-12] MEDS: GABAPENTIN 300 MG CAPSULE PO SCH ×4 (05:37→23:11)
[2017-06-12] MEDS: INSULIN LISPRO 100 UNIT/ML 3 ML VIAL SUBCUT SCH ×3 (08:40→16:55)
[2017-06-12] MEDS: INSULIN LISPRO 100 UNIT/ML 3 ML VIAL SUBCUT PRN ×4 (08:40→21:25)
[2017-06-12] MEDS: HYDROCHLOROTHIAZIDE 12.5 MG CAPSULE PO SCH (08:41)
[2017-06-12] MEDS: POLYETHYLENE GLYCOL 3350 POWDER 17 GM/1 PACKET PO SCH (09:15)
[2017-06-12] MEDS: NORMAL SALINE 10 ML SDV (SCHEDULED) IV SCH ×2 (09:19→21:20)
[2017-06-12] MEDS: METOPROLOL SUCCINATE 50 MG TAB.SR.24H PO SCH ×2 (09:20→21:19)
[2017-06-12] MEDS: FAMOTIDINE 20 MG TABLET PO SCH ×2 (09:20→21:19)
[2017-06-12] MEDS: AMLODIPINE BESYLATE 10 MG TABLET PO SCH (09:21)
[2017-06-12] MEDS: ENOXAPARIN SODIUM INJ 40 MG/0.4 ML DISP.SYRIN SUBCUT SCH (09:21)
[2017-06-12] MEDS: HALOPERIDOL 2 MG TABLET PO SCH ×2 (09:21→21:19)
--- NOTE | 2017-06-12 11:38 | PDOC PROGRESS REPORT ---
Subjective Progress Note for:: 06/12/17 Subjective:: Patient reports the wound VAC is no longer working as there is a foul odor coming from his foot and he has removed it. Previously Dr. De La Cruz and other staff noted the patient would disconnect the wound VAC to go downstairs for some sunshine and continued to walk on the foot in spite of instructions not to do so. He reports he continues to remove the wound VAC in spite of repeating counseling to go downstairs he states he cannot "stand that thing". I suggested to him that if he is not going to comply with medical treatment here that we could just discharge him unfortunately he is homeless and has nowhere to go and would not get follow-up. He recognizes the risks associated with this and assures me he will "try to do better". He denies fever, chills, worsening pain in the foot, redness, swelling. ROS: All systems reviewed, see above, remaining systems negative. Reason For Visit: DIABETIC FOOT ULCER Physical Exam Vital Signs: Temp Pulse Resp BP Pulse Ox 98.6 F 62 12 156/63 H 99 06/12/17 07:44 06/12/17 07:44 06/12/17 07:44 06/12/17 07:44 06/12/17 07:44 Intake & Output 06/11/17 06/12/17 06/13/17 06:59 06:59 06:59 Intake Total 1010 1684 Output Total 510 Balance 500 1684 Weight 83.2 kg General appearance: PRESENT: no acute distress, well-developed, well-nourished Eye exam: PRESENT: EOMI. ABSENT: scleral icterus Mouth exam: PRESENT: moist Respiratory exam: PRESENT: clear to auscultation manuel, unlabored. ABSENT: accessory muscle use, rhonchi, wheezes GI/Abdominal exam: PRESENT: normal bowel sounds, soft. ABSENT: tenderness Extremities exam: PRESENT: other - Foot has wound VAC in place and is continuing to drain a scant amount of serous fluid. There is no obvious exudate from the wound. No odor Neurological exam: PRESENT: alert, awake, oriented to person, oriented to place , oriented to time Results Laboratory Results: 06/09/17 05:25 06/09/17 05:25 Assessment & Plan - Diagnosis (1) Diabetic foot infection Is this a current diagnosis for this admission?: Yes (2) Acute pain Is this a current diagnosis for this admission?: Yes (3) Acute renal failure Is this a current diagnosis for this admission?: Yes (4) Hyperlipidemia Is this a current diagnosis for this admission?: Yes (5) Hypertension Qualifiers: Hypertension type: essential hypertension Qualified Code(s): I10 - Essential (primary) hypertension Is this a current diagnosis for this admission?: Yes (6) Uncontrolled type 2 diabetes mellitus Qualifiers: Diabetes mellitus complication status: with unspecified complications Diabetes mellitus [facility] insulin use: without long term care administrator use Qualified Code( s): E11.8 - Type 2 diabetes mellitus with unspecified complications; E11.65 - Type 2 diabetes mellitus with hyperglycemia; E11.65 - Type 2 diabetes mellitus with hyperglycemia; E11.65 - Type 2 diabetes mellitus with hyperglycemia; E11.65 - Type 2 diabetes mellitus with hyperglycemia Is this a current diagnosis for this admission?: Yes - Time Time Spent with patient: 15-24 minutes - Plan Summary Plan Summary: She was counseled yet again regarding medical compliance with treatment and staff; he appears reticent and willing to cooperate.
[2017-06-12] MEDS: AMITRIPTYLINE HCL 75 MG TABLET PO SCH (21:19)
[2017-06-12] MEDS: INSULIN GLARGINE,HUM.REC.ANLOG 300 UNIT/3 ML INSULN.PEN SUBCUT SCH (21:20)
[2017-06-12] MEDS ORDERED: INSULIN REG, HUMAN 100 UNIT/ML 3 ML VIAL (PYX) SUBCUT PRN (21:32)
[2017-06-13] MEDS: GABAPENTIN 300 MG CAPSULE PO SCH ×4 (06:50→23:30)
[2017-06-13] MEDS: OXYCODONE HCL IR 5 MG TABLET PO PRN ×2 (06:50→21:16)
[2017-06-13] MEDS: HYDROCHLOROTHIAZIDE 12.5 MG CAPSULE PO SCH (08:43)
[2017-06-13] MEDS: INSULIN LISPRO 100 UNIT/ML 3 ML VIAL SUBCUT SCH ×3 (08:45→17:57)
[2017-06-13] MEDS: INSULIN LISPRO 100 UNIT/ML 3 ML VIAL SUBCUT PRN ×3 (08:45→21:19)
[2017-06-13] MEDS: POLYETHYLENE GLYCOL 3350 POWDER 17 GM/1 PACKET PO SCH (09:27)
[2017-06-13] MEDS: METOPROLOL SUCCINATE 50 MG TAB.SR.24H PO SCH ×2 (09:33→21:17)
[2017-06-13] MEDS: FAMOTIDINE 20 MG TABLET PO SCH ×2 (09:33→21:17)
[2017-06-13] MEDS: HALOPERIDOL 2 MG TABLET PO SCH ×2 (09:33→21:18)
[2017-06-13] MEDS: AMLODIPINE BESYLATE 10 MG TABLET PO SCH (09:33)
[2017-06-13] MEDS: NORMAL SALINE 10 ML SDV (SCHEDULED) IV SCH ×2 (09:34→21:18)
[2017-06-13] MEDS: ENOXAPARIN SODIUM INJ 40 MG/0.4 ML DISP.SYRIN SUBCUT SCH (09:36)
[2017-06-13] MEDS: INSULIN GLARGINE,HUM.REC.ANLOG 300 UNIT/3 ML INSULN.PEN SUBCUT SCH (09:36)
--- NOTE | 2017-06-13 10:30 | PDOC PROGRESS REPORT ---
Subjective Progress Note for:: 06/13/17 Subjective:: Nursing reports he is more cooperative with the wound VAC since our discussion yesterday. Previously Dr. De La Cruz and other staff noted the patient would disconnect the wound VAC to go downstairs for some sunshine and continued to walk on the foot in spite of instructions not to do so. He reports he continues to remove the wound VAC in spite of repeating counseling to go downstairs he states he cannot "stand that thing". I suggested to him that if he is not going to comply with medical treatment here that we could just discharge him unfortunately he is homeless and has nowhere to go and would not get follow-up. He recognizes the risks associated with this and assures me he will "try to do better". He denies fever, chills, worsening pain in the foot, redness, swelling. ROS: All systems reviewed, see above, remaining systems negative. Reason For Visit: DIABETIC FOOT ULCER Physical Exam Vital Signs: Temp Pulse Resp BP Pulse Ox 98.6 F 62 12 154/72 H 98 06/13/17 08:06 06/13/17 08:06 06/13/17 08:06 06/13/17 08:06 06/13/17 08:06 Intake & Output 06/12/17 06/13/17 06/14/17 06:59 06:59 06:59 Intake Total 1684 1130 Output Total 560 Balance 1684 570 Weight 83.2 kg 81.2 kg General appearance: PRESENT: no acute distress Respiratory exam: PRESENT: unlabored Musculoskeletal exam: PRESENT: ambulatory Neurological exam: PRESENT: alert, awake Psychiatric exam: PRESENT: appropriate affect, normal mood Results Laboratory Results: 06/09/17 05:25 06/09/17 05:25 Assessment & Plan - Diagnosis (1) Diabetic foot infection Is this a current diagnosis for this admission?: Yes (2) Acute pain Is this a current diagnosis for this admission?: Yes (3) Acute renal failure Is this a current diagnosis for this admission?: Yes (4) Hyperlipidemia Is this a current diagnosis for this admission?: Yes (5) Hypertension Qualifiers: Hypertension type: essential hypertension Qualified Code(s): I10 - Essential (primary) hypertension Is this a current diagnosis for this admission?: Yes (6) Uncontrolled type 2 diabetes mellitus Qualifiers: Diabetes mellitus complication status: with unspecified complications Diabetes mellitus longterm insulin use: without longterm use Qualified Code( s): E11.8 - Type 2 diabetes mellitus with unspecified complications; E11.65 - Type 2 diabetes mellitus with hyperglycemia; E11.65 - Type 2 diabetes mellitus with hyperglycemia; E11.65 - Type 2 diabetes mellitus with hyperglycemia; E11.65 - Type 2 diabetes mellitus with hyperglycemia Is this a current diagnosis for this admission?: Yes - Time Time Spent with patient: Less than 15 minutes - Plan Summary Plan Summary: Late afternoon and early evening blood sugars are not well controlled, will change his Lantus to a.m. dosing and consider split dosing if that does not work.
[2017-06-13] MEDS: AMITRIPTYLINE HCL 75 MG TABLET PO SCH (21:18)
[2017-06-14] MEDS: GABAPENTIN 300 MG CAPSULE PO SCH ×5 (06:21→22:38)
[2017-06-14] MEDS: OXYCODONE HCL IR 5 MG TABLET PO PRN (06:21)
[2017-06-14] MEDS: HYDROCHLOROTHIAZIDE 12.5 MG CAPSULE PO SCH (08:06)
[2017-06-14] MEDS: INSULIN LISPRO 100 UNIT/ML 3 ML VIAL SUBCUT PRN ×4 (08:06→22:37)
[2017-06-14] MEDS: INSULIN LISPRO 100 UNIT/ML 3 ML VIAL SUBCUT SCH ×3 (08:06→16:43)
[2017-06-14] MEDS: ENOXAPARIN SODIUM INJ 40 MG/0.4 ML DISP.SYRIN SUBCUT SCH (10:03)
[2017-06-14] MEDS: NORMAL SALINE 10 ML SDV (SCHEDULED) IV SCH ×2 (10:04→22:37)
[2017-06-14] MEDS: FAMOTIDINE 20 MG TABLET PO SCH ×2 (10:04→22:37)
[2017-06-14] MEDS: HALOPERIDOL 2 MG TABLET PO SCH ×2 (10:04→22:37)
[2017-06-14] MEDS: METOPROLOL SUCCINATE 50 MG TAB.SR.24H PO SCH ×2 (10:04→22:37)
[2017-06-14] MEDS: INSULIN GLARGINE,HUM.REC.ANLOG 300 UNIT/3 ML INSULN.PEN SUBCUT SCH (10:05)
[2017-06-14] MEDS: AMLODIPINE BESYLATE 10 MG TABLET PO SCH (10:07)
[2017-06-14] MEDS: POLYETHYLENE GLYCOL 3350 POWDER 17 GM/1 PACKET PO SCH (10:08)
--- NOTE | 2017-06-14 17:43 | PDOC PROGRESS REPORT ---
Subjective Progress Note for:: 06/14/17 Subjective:: 56-year-old gentleman with a history of insulin-dependent diabetes who was admitted to this hospital on May 01. He is reportedly homeless and came in with an ulcer on the lateral part of his right foot for the past 3 months. It got worse with increasing pain with fevers and chills and nausea. MRI showed osteomyelitis of the right fifth metatarsal bone, and he underwent amputation of the right fifth toe at the fifth metatarsal bone with debridement on June 01. He has a wound VAC on and there is some reported noncompliance with it and with weightbearing on the right foot. Today he does have the wound VAC on. He reports insomnia and that his blood sugars are running high. Reason For Visit: DIABETIC FOOT ULCER Physical Exam Vital Signs: Temp Pulse Resp BP Pulse Ox 98.3 F 63 16 154/62 H 98 06/14/17 15:34 06/14/17 15:34 06/14/17 15:34 06/14/17 15:34 06/14/17 15:34 Intake & Output 06/13/17 06/14/17 06/15/17 06:59 06:59 06:59 Intake Total 1130 750 222 Output Total 560 Balance 570 750 222 Weight 81.2 kg General appearance: PRESENT: no acute distress, obese Head exam: PRESENT: atraumatic, normocephalic Eye exam: PRESENT: PERRLA Mouth exam: PRESENT: moist Respiratory exam: PRESENT: clear to auscultation manuel, unlabored. ABSENT: accessory muscle use Cardiovascular exam: PRESENT: RRR GI/Abdominal exam: PRESENT: normal bowel sounds, soft. ABSENT: tenderness Rectal exam: PRESENT: deferred Extremities exam: PRESENT: other - Some edema of the right foot. Status post amputation of the right fifth toe. Wound VAC present.. ABSENT: calf tenderness Neurological exam: PRESENT: alert, awake, oriented to person, oriented to place , oriented to time Psychiatric exam: PRESENT: anxious Results Laboratory Results: 06/09/17 05:25 06/09/17 05:25 Impressions: Foot X-Ray 05/01/17 14:36 IMPRESSION: PATIENT WITH PRIOR HEALED 4TH AND 5TH METATARSAL FRACTURES WITH SHAGGY APPEARANCE INVOLVING THE FRACTURE SITES WHICH COULD REPRESENT SEQUELA OF THE PRIOR HEALING OR SUPERIMPOSED OSTEOMYELITIS GIVEN PATIENT'S HISTORY OF ULCERATION. MRI IS FOR FURTHER EVALUATION CLINICALLY INDICATED. Lower Extremity MRI 05/01/17 15:51 IMPRESSION: Ulcer over the base of the 5th metatarsal with bony cortical with erosion and abnormal marrow signal in the proximal 2/3 of the 5th metatarsal compatible with osteomyelitis. Guidance Fluoroscopy 05/05/17 00:00 IMPRESSION: Please see combined report for performance of procedure and radiologic supervision and interpretation. Interventional Vascular Procedure 05/05/17 00:00 IMPRESSION: Please see combined report for performance of procedure and radiologic supervision and interpretation. PICC Line Insertion 05/05/17 00:00 IMPRESSION: SUCCESSFUL PLACEMENT OF A 5 FR dual LUMEN 39 CM PICC IN THE basilic VEIN. Assessment & Plan - Diagnosis (2) Diabetic foot infection Is this a current diagnosis for this admission?: Yes Plan: Status post amputation of infected bone. 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 Continue to monitor. (7) Insomnia Is this a current diagnosis for this admission?: Yes Plan: Temazepam as needed at bedtime - Time Time Spent with patient: 25-34 minutes
[2017-06-14] MEDS: AMITRIPTYLINE HCL 75 MG TABLET PO SCH (22:37)
[2017-06-14] MEDS: TEMAZEPAM 7.5 MG CAPSULE PO SCH (22:38)
[2017-06-15] MEDS: OXYCODONE HCL IR 5 MG TABLET PO PRN (06:12)
[2017-06-15] MEDS: INSULIN GLARGINE,HUM.REC.ANLOG 300 UNIT/3 ML INSULN.PEN SUBCUT SCH ×2 (09:02→21:11)
[2017-06-15] MEDS: INSULIN LISPRO 100 UNIT/ML 3 ML VIAL SUBCUT SCH ×3 (09:02→17:26)
[2017-06-15] MEDS: INSULIN LISPRO 100 UNIT/ML 3 ML VIAL SUBCUT PRN ×4 (09:02→21:12)
[2017-06-15] MEDS: ENOXAPARIN SODIUM INJ 40 MG/0.4 ML DISP.SYRIN SUBCUT SCH (09:02)
[2017-06-15] MEDS: HALOPERIDOL 2 MG TABLET PO SCH ×2 (09:03→21:13)
[2017-06-15] MEDS: HYDROCHLOROTHIAZIDE 12.5 MG CAPSULE PO SCH (09:03)
[2017-06-15] MEDS: FAMOTIDINE 20 MG TABLET PO SCH ×2 (09:03→21:13)
[2017-06-15] MEDS: GABAPENTIN 300 MG CAPSULE PO SCH ×4 (09:03→21:13)
[2017-06-15] MEDS: AMLODIPINE BESYLATE 10 MG TABLET PO SCH (09:04)
[2017-06-15] MEDS: METOPROLOL SUCCINATE 50 MG TAB.SR.24H PO SCH ×2 (09:04→21:13)
[2017-06-15] MEDS: NORMAL SALINE 10 ML SDV (SCHEDULED) IV SCH ×2 (09:05→21:12)
[2017-06-15] MEDS: POLYETHYLENE GLYCOL 3350 POWDER 17 GM/1 PACKET PO SCH (09:06)
--- NOTE | 2017-06-15 11:32 | PDOC PROGRESS REPORT ---
Subjective Progress Note for:: 06/15/17 Subjective:: 56-year-old gentleman with a history of insulin-dependent diabetes who was admitted to this hospital on May 01. He is reportedly homeless and came in with an ulcer on the lateral part of his right foot for the past 3 months. It got worse with increasing pain with fevers and chills and nausea. MRI showed osteomyelitis of the right fifth metatarsal bone, and he underwent amputation of the right fifth toe at the fifth metatarsal bone with debridement on June 01. He has a wound VAC on and there is some reported noncompliance with it and with weightbearing on the right foot. Slept better last night, Temazepam worked for him Glucose running, Lantus dose adjusted. We will give him a.m. and p.m. doses. No other complaints. Reason For Visit: DIABETIC FOOT ULCER Physical Exam Vital Signs: Temp Pulse Resp BP Pulse Ox 98.3 F 72 18 178/80 H 100 06/15/17 07:17 06/15/17 07:17 06/15/17 07:17 06/15/17 07:17 06/15/17 07:17 Intake & Output 06/14/17 06/15/17 06/16/17 06:59 06:59 06:59 Intake Total 750 882 Balance 750 882 Additional comments: Middle-aged -Austrian male well-developed well-nourished sitting up in bed not in acute distress Lungs: Clear to auscultation bilaterally normal respiratory effort Cardiac: S1-S2 regular no calf tenderness no murmurs heard Abdomen: Soft, no focal tenderness normal bowel sounds Extremities right fifth toe and metatarsal amputation wound VAC in place. Results Laboratory Results: 06/09/17 05:25 06/09/17 05:25 Impressions: Foot X-Ray 05/01/17 14:36 IMPRESSION: PATIENT WITH PRIOR HEALED 4TH AND 5TH METATARSAL FRACTURES WITH SHAGGY APPEARANCE INVOLVING THE FRACTURE SITES WHICH COULD REPRESENT SEQUELA OF THE PRIOR HEALING OR SUPERIMPOSED OSTEOMYELITIS GIVEN PATIENT'S HISTORY OF ULCERATION. MRI IS FOR FURTHER EVALUATION CLINICALLY INDICATED. Lower Extremity MRI 05/01/17 15:51 IMPRESSION: Ulcer over the base of the 5th metatarsal with bony cortical with erosion and abnormal marrow signal in the proximal 2/3 of the 5th metatarsal compatible with osteomyelitis. Guidance Fluoroscopy 05/05/17 00:00 IMPRESSION: Please see combined report for performance of procedure and radiologic supervision and interpretation. Interventional Vascular Procedure 05/05/17 00:00 IMPRESSION: Please see combined report for performance of procedure and radiologic supervision and interpretation. PICC Line Insertion 05/05/17 00:00 IMPRESSION: SUCCESSFUL PLACEMENT OF A 5 FR dual LUMEN 39 CM PICC IN THE basilic VEIN. Assessment & Plan - Diagnosis (2) Diabetic foot infection Is this a current diagnosis for this admission?: Yes (3) Hyperlipidemia Is this a current diagnosis for this admission?: Yes (4) Hypertension Qualifiers: Hypertension type: essential hypertension Qualified Code(s): I10 - Essential (primary) hypertension Is this a current diagnosis for this admission?: Yes (5) Peripheral neuropathy Is this a current diagnosis for this admission?: Yes (6) Uncontrolled type 2 diabetes mellitus Qualifiers: Diabetes mellitus complication status: with unspecified complications Diabetes mellitus senior living insulin use: without senior living use Qualified Code( s): E11.8 - Type 2 diabetes mellitus with unspecified complications; E11.65 - Type 2 diabetes mellitus with hyperglycemia; E11.65 - Type 2 diabetes mellitus with hyperglycemia; E11.65 - Type 2 diabetes mellitus with hyperglycemia; E11.65 - Type 2 diabetes mellitus with hyperglycemia Is this a current diagnosis for this admission?: Yes (7) Insomnia Is this a current diagnosis for this admission?: Yes - Time Time Spent with patient: 15-24 minutes - Plan Summary Plan Summary: Continue current management. Adjustments made to insulin. We will add Imdur for better blood pressure control. Check CBC renal function panel and electrolytes in the morning.
[2017-06-15] MEDS: TEMAZEPAM 7.5 MG CAPSULE PO SCH (21:12)
[2017-06-15] MEDS: ISOSORBIDE MONONITRATE 30 MG TAB.ER.24H PO SCH (21:12)
[2017-06-15] MEDS: AMITRIPTYLINE HCL 75 MG TABLET PO SCH (21:13)
[2017-06-16 05:57] LABS: HEMOGLOBIN 12.2 g/dL (13.5-17.0); MEAN CORPUSCULAR HEMOGLOBIN 28.8 pg (27.0-33.4); MEAN CORPUSCULAR VOLUME 87 fl (80-97); PLATELET COUNT 230 10^3/uL (150-450); RED BLOOD COUNT 4.24 10^6/uL (4.35-5.55); RED CELL DISTRIBUTION WIDTH 14.1 % (11.5-14.0); WHITE BLOOD COUNT 6.2 10^3/uL (4.0-10.5)
[2017-06-16 06:27] LABS: ALANINE AMINOTRANSFERASE 27 U/L (21-72); ALBUMIN 3.6 g/dL (3.5-5.0); ALKALINE PHOSPHATASE 90 U/L (38-126); ANION GAP 11 (5-19); ASPARTATE AMINO TRANSFERASE 12 U/L (17-59); BILIRUBIN,DIRECT 0.2 mg/dL (0.0-0.4); BILIRUBIN,TOTAL 0.2 mg/dL (0.2-1.3); BLOOD UREA NITROGEN 34 mg/dL (7-20); CALCIUM 9.8 mg/dL (8.4-10.2); CARBON DIOXIDE 28 mmol/L (22-30); CHLORIDE 99 mmol/L (98-107); GLUCOSE 294 mg/dL (75-110); MAGNESIUM 2.1 mg/dL (1.6-2.3); POTASSIUM 4.5 mmol/L (3.6-5.0); SODIUM 137.8 mmol/L (137-145); TOTAL PROTEIN 7.3 g/dL (6.3-8.2)
[2017-06-16] MEDS: INSULIN LISPRO 100 UNIT/ML 3 ML VIAL SUBCUT SCH ×3 (08:46→17:44)
[2017-06-16] MEDS: INSULIN LISPRO 100 UNIT/ML 3 ML VIAL SUBCUT PRN ×4 (08:48→21:07)
[2017-06-16] MEDS: HYDROCHLOROTHIAZIDE 12.5 MG CAPSULE PO SCH (08:53)
[2017-06-16] MEDS: POLYETHYLENE GLYCOL 3350 POWDER 17 GM/1 PACKET PO SCH (09:06)
[2017-06-16] MEDS: AMLODIPINE BESYLATE 10 MG TABLET PO SCH (09:08)
[2017-06-16] MEDS: ENOXAPARIN SODIUM INJ 40 MG/0.4 ML DISP.SYRIN SUBCUT SCH (09:09)
[2017-06-16] MEDS: FAMOTIDINE 20 MG TABLET PO SCH ×2 (09:09→21:06)
[2017-06-16] MEDS: METOPROLOL SUCCINATE 50 MG TAB.SR.24H PO SCH ×2 (09:09→21:06)
[2017-06-16] MEDS: GABAPENTIN 300 MG CAPSULE PO SCH ×4 (09:09→21:06)
[2017-06-16] MEDS: HALOPERIDOL 2 MG TABLET PO SCH ×2 (09:10→21:06)
[2017-06-16] MEDS: NORMAL SALINE 10 ML SDV (SCHEDULED) IV SCH ×2 (09:10→21:07)
[2017-06-16] MEDS: INSULIN GLARGINE,HUM.REC.ANLOG 300 UNIT/3 ML INSULN.PEN SUBCUT SCH ×2 (09:11→21:07)
[2017-06-16] MEDS: OXYCODONE HCL IR 5 MG TABLET PO PRN (09:27)
--- NOTE | 2017-06-16 10:46 | PDOC PROGRESS REPORT ---
Subjective Progress Note for:: 06/16/17 Subjective:: 56-year-old gentleman with a history of insulin-dependent diabetes who was admitted to this hospital on May 01. He is reportedly homeless and came in with an ulcer on the lateral part of his right foot for the past 3 months. It got worse with increasing pain with fevers and chills and nausea. MRI showed osteomyelitis of the right fifth metatarsal bone, and he underwent amputation of the right fifth toe at the fifth metatarsal bone with debridement on June 01. He has a wound VAC on and there is some reported noncompliance with it and with weightbearing on the right foot. Blood sugars are still running in the high 200s and 300s. Lantus dose will be increased to 35 units twice a day. He is requesting that the temazepam dose be increased. He has no complaints at present. He has been compliant with nonweightbearing on the right foot and with the wound VAC. Reason For Visit: DIABETIC FOOT ULCER Physical Exam Vital Signs: Temp Pulse Resp BP Pulse Ox 98.1 F 80 12 150/83 H 98 06/16/17 08:53 06/16/17 08:53 06/16/17 08:53 06/16/17 08:53 06/16/17 08:53 Intake & Output 06/15/17 06/16/17 06/17/17 06:59 06:59 06:59 Intake Total 882 1640 Output Total 700 Balance 882 940 Additional comments: Middle-aged -Thai male well-developed well-nourished sitting up in bed Lungs: Clear to auscultation bilaterally normal respiratory effort Cardiac: S1-S2 regular no calf tenderness no murmurs heard Abdomen: Soft, no focal tenderness normal bowel sounds Extremities right fifth toe and metatarsal amputation wound VAC in place. Results Laboratory Results: 06/16/17 05:40 06/16/17 05:40 06/16/17 06/16/17 05:40 05:40 WBC 6.2 RBC 4.24 L Hgb 12.2 L Hct 37.0 L MCV 87 MCH 28.8 MCHC 33.0 RDW 14.1 H Plt Count 230 Sodium 137.8 Potassium 4.5 Chloride 99 Carbon Dioxide 28 Anion Gap 11 BUN 34 H Creatinine 1.59 H Est GFR ( Amer) 54 L Est GFR (Non-Af Amer) 45 L Glucose 294 H Calcium 9.8 Phosphorus 5.0 H Magnesium 2.1 Total Bilirubin 0.2 AST 12 L ALT 27 Alkaline Phosphatase 90 Total Protein 7.3 Albumin 3.6 Impressions: Foot X-Ray 05/01/17 14:36 IMPRESSION: PATIENT WITH PRIOR HEALED 4TH AND 5TH METATARSAL FRACTURES WITH SHAGGY APPEARANCE INVOLVING THE FRACTURE SITES WHICH COULD REPRESENT SEQUELA OF THE PRIOR HEALING OR SUPERIMPOSED OSTEOMYELITIS GIVEN PATIENT'S HISTORY OF ULCERATION. MRI IS FOR FURTHER EVALUATION CLINICALLY INDICATED. Lower Extremity MRI 05/01/17 15:51 IMPRESSION: Ulcer over the base of the 5th metatarsal with bony cortical with erosion and abnormal marrow signal in the proximal 2/3 of the 5th metatarsal compatible with osteomyelitis. Guidance Fluoroscopy 05/05/17 00:00 IMPRESSION: Please see combined report for performance of procedure and radiologic supervision and interpretation. Interventional Vascular Procedure 05/05/17 00:00 IMPRESSION: Please see combined report for performance of procedure and radiologic supervision and interpretation. PICC Line Insertion 05/05/17 00:00 IMPRESSION: SUCCESSFUL PLACEMENT OF A 5 FR dual LUMEN 39 CM PICC IN THE basilic VEIN. Assessment & Plan - Diagnosis (1) Anxiety Is this a current diagnosis for this admission?: Yes (2) Diabetic foot infection Is this a current diagnosis for this admission?: Yes Plan: Status post amputation of infected bone. Completed a course of antibiotics. (3) Hyperlipidemia Is this a current diagnosis for this admission?: Yes (4) Hypertension Qualifiers: Hypertension type: essential hypertension Qualified Code(s): I10 - Essential (primary) hypertension Is this a current diagnosis for this admission?: Yes Plan: Continue current medications. Imdur was added yesterday for better blood pressure control. Continue to monitor. 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 Continue to monitor. (7) Insomnia Is this a current diagnosis for this admission?: Yes Plan: Temazepam 15 mg as needed at bedtime - Time Time Spent with patient: 15-24 minutes
[2017-06-16] MEDS: AMITRIPTYLINE HCL 75 MG TABLET PO SCH (21:06)
[2017-06-16] MEDS: ISOSORBIDE MONONITRATE 30 MG TAB.ER.24H PO SCH (21:06)
[2017-06-16] MEDS: TEMAZEPAM 15 MG CAPSULE PO SCH (21:06)
[2017-06-17] MEDS: INSULIN LISPRO 100 UNIT/ML 3 ML VIAL SUBCUT SCH ×3 (08:21→17:10)
[2017-06-17] MEDS: INSULIN LISPRO 100 UNIT/ML 3 ML VIAL SUBCUT PRN ×4 (08:22→22:54)
[2017-06-17] MEDS: INSULIN GLARGINE,HUM.REC.ANLOG 300 UNIT/3 ML INSULN.PEN SUBCUT SCH ×2 (10:52→22:54)
[2017-06-17] MEDS: ENOXAPARIN SODIUM INJ 40 MG/0.4 ML DISP.SYRIN SUBCUT SCH (10:52)
[2017-06-17] MEDS: NORMAL SALINE 10 ML SDV (SCHEDULED) IV SCH ×2 (10:53→22:55)
[2017-06-17] MEDS: METOPROLOL SUCCINATE 50 MG TAB.SR.24H PO SCH ×2 (10:54→22:44)
[2017-06-17] MEDS: AMLODIPINE BESYLATE 10 MG TABLET PO SCH (10:54)
[2017-06-17] MEDS: GABAPENTIN 300 MG CAPSULE PO SCH ×4 (10:55→22:43)
[2017-06-17] MEDS: HYDROCHLOROTHIAZIDE 12.5 MG CAPSULE PO SCH (10:55)
[2017-06-17] MEDS: FAMOTIDINE 20 MG TABLET PO SCH ×2 (10:55→22:43)
[2017-06-17] MEDS: POLYETHYLENE GLYCOL 3350 POWDER 17 GM/1 PACKET PO SCH (10:58)
--- NOTE | 2017-06-17 13:21 | PDOC PROGRESS REPORT ---
Subjective Progress Note for:: 06/17/17 Subjective:: Summary: 56-year-old gentleman with a history of insulin-dependent diabetes who was admitted to this hospital on May 01. He is reportedly homeless and came in with an ulcer on the lateral part of his right foot for the past 3 months. It got worse with increasing pain with fevers and chills and nausea. MRI showed osteomyelitis of the right fifth metatarsal bone, and he underwent amputation of the right fifth toe at the fifth metatarsal bone with debridement on June 01. He has a wound VAC on and there is some reported noncompliance with it and with weightbearing on the right foot. He has no specific complaints today. Reason For Visit: DIABETIC FOOT ULCER Physical Exam Vital Signs: Temp Pulse Resp BP Pulse Ox 98.2 F 79 17 174/74 H 100 06/17/17 00:00 06/17/17 00:00 06/17/17 00:00 06/17/17 00:00 06/17/17 00:00 Intake & Output 06/16/17 06/17/17 06/18/17 06:59 06:59 06:59 Intake Total 1640 980 Output Total 700 Balance 940 980 General appearance: PRESENT: no acute distress, cooperative, well-developed, well-nourished Head exam: PRESENT: atraumatic, normocephalic Eye exam: PRESENT: conjunctival injection, EOMI Neck exam: ABSENT: carotid bruit, JVD, lymphadenopathy, thyromegaly Respiratory exam: PRESENT: clear to auscultation manuel. ABSENT: rales, rhonchi, wheezes Cardiovascular exam: PRESENT: RRR. ABSENT: diastolic murmur, rubs, systolic murmur GI/Abdominal exam: PRESENT: normal bowel sounds, soft. ABSENT: distended, guarding, mass, organolmegaly, rebound, tenderness Extremities exam: PRESENT: other - Status post right fifth toe and metatarsal amputation. Wound VAC in place. Neurological exam: PRESENT: alert, awake, oriented to person, oriented to place , oriented to time, oriented to situation, CN II-XII grossly intact. ABSENT: motor sensory deficit Psychiatric exam: PRESENT: appropriate affect, normal mood. ABSENT: homicidal ideation, suicidal ideation Results Laboratory Results: 06/16/17 05:40 06/16/17 05:40 Impressions: Foot X-Ray 05/01/17 14:36 IMPRESSION: PATIENT WITH PRIOR HEALED 4TH AND 5TH METATARSAL FRACTURES WITH SHAGGY APPEARANCE INVOLVING THE FRACTURE SITES WHICH COULD REPRESENT SEQUELA OF THE PRIOR HEALING OR SUPERIMPOSED OSTEOMYELITIS GIVEN PATIENT'S HISTORY OF ULCERATION. MRI IS FOR FURTHER EVALUATION CLINICALLY INDICATED. Lower Extremity MRI 05/01/17 15:51 IMPRESSION: Ulcer over the base of the 5th metatarsal with bony cortical with erosion and abnormal marrow signal in the proximal 2/3 of the 5th metatarsal compatible with osteomyelitis. Guidance Fluoroscopy 05/05/17 00:00 IMPRESSION: Please see combined report for performance of procedure and radiologic supervision and interpretation. Interventional Vascular Procedure 05/05/17 00:00 IMPRESSION: Please see combined report for performance of procedure and radiologic supervision and interpretation. PICC Line Insertion 05/05/17 00:00 IMPRESSION: SUCCESSFUL PLACEMENT OF A 5 FR dual LUMEN 39 CM PICC IN THE basilic VEIN. Assessment & Plan - Diagnosis (1) Diabetic foot infection Is this a current diagnosis for this admission?: Yes Plan: Continue wound VAC. Home/discharge when we are able to take the wound VAC off. (2) Hypertension Qualifiers: Hypertension type: essential hypertension Qualified Code(s): I10 - Essential (primary) hypertension Is this a current diagnosis for this admission?: Yes Plan: Uncontrolled. Add [place] inhibitor. Monitor renal function. (3) Peripheral neuropathy Is this a current diagnosis for this admission?: Yes Plan: He is on Elavil and gabapentin. 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 (5) Chronic kidney disease, stage 3 (moderate) Is this a current diagnosis for this admission?: Yes Plan: Stable.
[2017-06-17] MEDS ORDERED: LISINOPRIL 10 MG TABLET PO ONE (14:45)
[2017-06-17] MEDS: AMITRIPTYLINE HCL 75 MG TABLET PO SCH (22:42)
[2017-06-17] MEDS: TEMAZEPAM 15 MG CAPSULE PO SCH (22:43)
[2017-06-17] MEDS: ISOSORBIDE MONONITRATE 30 MG TAB.ER.24H PO SCH (22:43)
[2017-06-18] MEDS: HYDROCHLOROTHIAZIDE 12.5 MG CAPSULE PO SCH (07:58)
[2017-06-18] MEDS: INSULIN LISPRO 100 UNIT/ML 3 ML VIAL SUBCUT SCH ×3 (08:02→17:46)
[2017-06-18] MEDS: INSULIN LISPRO 100 UNIT/ML 3 ML VIAL SUBCUT PRN ×4 (08:03→21:56)
[2017-06-18] MEDS: LISINOPRIL 10 MG TABLET PO SCH (09:13)
[2017-06-18] MEDS: GABAPENTIN 300 MG CAPSULE PO SCH ×4 (09:14→21:56)
[2017-06-18] MEDS: AMLODIPINE BESYLATE 10 MG TABLET PO SCH (09:15)
[2017-06-18] MEDS: METOPROLOL SUCCINATE 50 MG TAB.SR.24H PO SCH ×2 (09:15→21:55)
[2017-06-18] MEDS: FAMOTIDINE 20 MG TABLET PO SCH ×2 (09:15→21:55)
[2017-06-18] MEDS: NORMAL SALINE 10 ML SDV (SCHEDULED) IV SCH ×2 (09:28→22:14)
[2017-06-18] MEDS: INSULIN GLARGINE,HUM.REC.ANLOG 300 UNIT/3 ML INSULN.PEN SUBCUT SCH ×2 (09:28→21:56)
[2017-06-18] MEDS: POLYETHYLENE GLYCOL 3350 POWDER 17 GM/1 PACKET PO SCH (09:30)
[2017-06-18] MEDS: ENOXAPARIN SODIUM INJ 40 MG/0.4 ML DISP.SYRIN SUBCUT SCH (09:30)
--- NOTE | 2017-06-18 11:24 | PDOC PROGRESS REPORT ---
Subjective Progress Note for:: 06/18/17 Subjective:: Summary: 56-year-old gentleman with a history of insulin-dependent diabetes who was admitted to this hospital on May 01. He is reportedly homeless and came in with an ulcer on the lateral part of his right foot for the preceding 3 months. It got worse with increasing pain with fevers, chills and nausea. MRI showed osteomyelitis of the right fifth metatarsal bone, and he underwent amputation of the right fifth toe at the fifth metatarsal bone with debridement on June 01. He has had wound VAC on and there is some reported noncompliance with it and with weightbearing on the right foot. he remains in the hospital allowing the wound to heal. A PICC line has been in place in the [facility] [place] since early/mid April. He has no specific complaints today. Reason For Visit: DIABETIC FOOT ULCER Physical Exam Vital Signs: Temp Pulse Resp BP Pulse Ox 98.2 F 69 18 165/82 H 99 06/18/17 08:00 06/18/17 08:00 06/18/17 08:00 06/18/17 08:00 06/18/17 08:00 Intake & Output 06/17/17 06/18/17 06/19/17 06:59 06:59 06:59 Intake Total 980 1850 Balance 980 1850 General appearance: PRESENT: no acute distress, well-developed, well-nourished Head exam: PRESENT: atraumatic, normocephalic Eye exam: PRESENT: conjunctiva pink, EOMI, PERRLA. ABSENT: scleral icterus Neck exam: ABSENT: carotid bruit, JVD, lymphadenopathy, thyromegaly Respiratory exam: PRESENT: clear to auscultation manuel. ABSENT: rales, rhonchi, wheezes Cardiovascular exam: PRESENT: RRR. ABSENT: diastolic murmur, rubs, systolic murmur Extremities exam: PRESENT: +1 edema - right foot, other - wound vac on lateral right foot Neurological exam: PRESENT: alert, awake, oriented to person, oriented to place , oriented to time, oriented to situation, CN II-XII grossly intact. ABSENT: motor sensory deficit Psychiatric exam: PRESENT: appropriate affect, normal mood. ABSENT: homicidal ideation, suicidal ideation Results Laboratory Results: 06/16/17 05:40 06/16/17 05:40 Impressions: Foot X-Ray 05/01/17 14:36 IMPRESSION: PATIENT WITH PRIOR HEALED 4TH AND 5TH METATARSAL FRACTURES WITH SHAGGY APPEARANCE INVOLVING THE FRACTURE SITES WHICH COULD REPRESENT SEQUELA OF THE PRIOR HEALING OR SUPERIMPOSED OSTEOMYELITIS GIVEN PATIENT'S HISTORY OF ULCERATION. MRI IS FOR FURTHER EVALUATION CLINICALLY INDICATED. Lower Extremity MRI 05/01/17 15:51 IMPRESSION: Ulcer over the base of the 5th metatarsal with bony cortical with erosion and abnormal marrow signal in the proximal 2/3 of the 5th metatarsal compatible with osteomyelitis. Guidance Fluoroscopy 05/05/17 00:00 IMPRESSION: Please see combined report for performance of procedure and radiologic supervision and interpretation. Interventional Vascular Procedure 05/05/17 00:00 IMPRESSION: Please see combined report for performance of procedure and radiologic supervision and interpretation. PICC Line Insertion 05/05/17 00:00 IMPRESSION: SUCCESSFUL PLACEMENT OF A 5 FR dual LUMEN 39 CM PICC IN THE basilic VEIN. Assessment & Plan - Diagnosis (1) Diabetic foot infection Is this a current diagnosis for this admission?: Yes Plan: Continue wound VAC. Home/discharge when we are able to take the wound VAC off. (2) Hypertension Qualifiers: Hypertension type: essential hypertension Qualified Code(s): I10 - Essential (primary) hypertension Is this a current diagnosis for this admission?: Yes Plan: Uncontrolled. Added CHEYENNE inhibitor 06/17. Monitor renal function. (3) Peripheral neuropathy Is this a current diagnosis for this admission?: Yes Plan: He is on Elavil and gabapentin. (4) Uncontrolled type 2 diabetes mellitus Qualifiers: Diabetes mellitus complication status: with hyperglycemia Diabetes mellitus fpc insulin use: with fpc use Qualified Code(s): E11.65 - Type 2 diabetes mellitus with hyperglycemia; Z79.4 - halfway (current) use of insulin; Z79.4 - intermediate designer (current) use of insulin; Z79.4 - halfway ( current) use of insulin; Z79.4 - halfway (current) use of insulin Is this a current diagnosis for this admission?: Yes Plan: Increased Lantus to 40 units twice daily, 06/17. continue to monitor, and increase accordingly. (5) Chronic kidney disease, stage 3 (moderate) Is this a current diagnosis for this admission?: Yes Plan: Stable. - Time Time Spent with patient: 15-24 minutes Medications reviewed and adjusted accordingly: Yes Anticipated discharge: Home - Inpatient Certification Based on my medical assessment, after consideration of the patient's comorbidities, presenting symptoms, or acuity I expect that the services needed warrant INPATIENT care.: Yes I certify that my determination is in accordance with my understanding of Medicare's requirements for reasonable and necessary INPATIENT services [42 CFR 412.3e].: Yes Medical Necessity: Risk of Complication if Not Cared For in Hospital
[2017-06-18] MEDS: AMITRIPTYLINE HCL 75 MG TABLET PO SCH (21:55)
[2017-06-18] MEDS: ISOSORBIDE MONONITRATE 30 MG TAB.ER.24H PO SCH (21:55)
[2017-06-18] MEDS: TEMAZEPAM 15 MG CAPSULE PO SCH (21:55)
[2017-06-19 06:30] LABS: ANION GAP 11 (5-19); BLOOD UREA NITROGEN 38 mg/dL (7-20); CALCIUM 9.6 mg/dL (8.4-10.2); CARBON DIOXIDE 27 mmol/L (22-30); CHLORIDE 101 mmol/L (98-107); GLUCOSE 255 mg/dL (75-110); POTASSIUM 4.5 mmol/L (3.6-5.0); SODIUM 139.1 mmol/L (137-145)
[2017-06-19] MEDS: INSULIN LISPRO 100 UNIT/ML 3 ML VIAL SUBCUT PRN ×4 (08:13→23:00)
[2017-06-19] MEDS: INSULIN LISPRO 100 UNIT/ML 3 ML VIAL SUBCUT SCH ×3 (08:13→17:44)
[2017-06-19] MEDS ORDERED: HYDROCHLOROTHIAZIDE 12.5 MG CAPSULE PO ONE (09:30)
[2017-06-19] MEDS ORDERED: ACETAMINOPHEN 325 MG TABLET PO PRN (10:00)
[2017-06-19] MEDS: OXYCODONE HCL IR 5 MG TABLET PO PRN ×3 (10:11→23:01)
[2017-06-19] MEDS: AMLODIPINE BESYLATE 10 MG TABLET PO SCH (10:12)
[2017-06-19] MEDS: GABAPENTIN 300 MG CAPSULE PO SCH ×4 (10:12→22:58)
[2017-06-19] MEDS: METOPROLOL SUCCINATE 50 MG TAB.SR.24H PO SCH ×2 (10:13→23:01)
[2017-06-19] MEDS: LISINOPRIL 10 MG TABLET PO SCH (10:13)
[2017-06-19] MEDS: FAMOTIDINE 20 MG TABLET PO SCH ×2 (10:13→22:58)
[2017-06-19] MEDS: NORMAL SALINE 10 ML SDV (SCHEDULED) IV SCH ×2 (10:14→23:01)
[2017-06-19] MEDS: POLYETHYLENE GLYCOL 3350 POWDER 17 GM/1 PACKET PO SCH (10:15)
[2017-06-19] MEDS: ENOXAPARIN SODIUM INJ 40 MG/0.4 ML DISP.SYRIN SUBCUT SCH (10:16)
[2017-06-19] MEDS: INSULIN GLARGINE,HUM.REC.ANLOG 300 UNIT/3 ML INSULN.PEN SUBCUT SCH ×2 (10:16→23:01)
--- NOTE | 2017-06-19 13:14 | PDOC PROGRESS REPORT ---
Subjective Progress Note for:: 06/19/17 Subjective:: Summary: 56-year-old gentleman with a history of insulin-dependent diabetes who was admitted to this hospital on May 01. He is reportedly homeless and came in with an ulcer on the lateral part of his right foot for the preceding 3 months. It got worse with increasing pain with fevers, chills and nausea. MRI showed osteomyelitis of the right fifth metatarsal bone, and he underwent amputation of the right fifth toe at the fifth metatarsal bone with debridement on June 01. He has had wound VAC on and there is some reported noncompliance with it and with weightbearing on the right foot. he remains in the hospital allowing the wound to heal. A PICC line has been in place in the [facility] since early/mid April. He has no specific complaints today. Wound vac to be changed today 06.19.17 Reason For Visit: DIABETIC FOOT ULCER Physical Exam Vital Signs: Temp Pulse Resp BP Pulse Ox 98.2 F 70 19 139/70 H 100 06/19/17 12:00 06/19/17 12:00 06/19/17 12:00 06/19/17 12:00 06/19/17 12:00 Intake & Output 06/18/17 06/19/17 06/20/17 06:59 06:59 06:59 Intake Total 1850 1002 Balance 1850 1002 General appearance: PRESENT: no acute distress, cooperative, obese Head exam: PRESENT: atraumatic, normocephalic Eye exam: PRESENT: EOMI, PERRLA Respiratory exam: PRESENT: clear to auscultation manuel. ABSENT: rales, rhonchi, wheezes Cardiovascular exam: PRESENT: RRR. ABSENT: diastolic murmur, rubs, systolic murmur GI/Abdominal exam: PRESENT: normal bowel sounds, soft. ABSENT: distended, guarding, mass, organolmegaly, rebound, tenderness Extremities exam: PRESENT: other - Wound vac on right foot Neurological exam: PRESENT: alert, awake, oriented to person, oriented to place , oriented to time, oriented to situation, CN II-XII grossly intact. ABSENT: motor sensory deficit Results Laboratory Results: 06/16/17 05:40 06/19/17 06:03 06/19/17 06:03 Sodium 139.1 Potassium 4.5 Chloride 101 Carbon Dioxide 27 Anion Gap 11 BUN 38 H Creatinine 1.64 H Est GFR ( Amer) 52 L Est GFR (Non-Af Amer) 43 L Glucose 255 H Calcium 9.6 Impressions: Foot X-Ray 05/01/17 14:36 IMPRESSION: PATIENT WITH PRIOR HEALED 4TH AND 5TH METATARSAL FRACTURES WITH SHAGGY APPEARANCE INVOLVING THE FRACTURE SITES WHICH COULD REPRESENT SEQUELA OF THE PRIOR HEALING OR SUPERIMPOSED OSTEOMYELITIS GIVEN PATIENT'S HISTORY OF ULCERATION. MRI IS FOR FURTHER EVALUATION CLINICALLY INDICATED. Lower Extremity MRI 05/01/17 15:51 IMPRESSION: Ulcer over the base of the 5th metatarsal with bony cortical with erosion and abnormal marrow signal in the proximal 2/3 of the 5th metatarsal compatible with osteomyelitis. Guidance Fluoroscopy 05/05/17 00:00 IMPRESSION: Please see combined report for performance of procedure and radiologic supervision and interpretation. Interventional Vascular Procedure 05/05/17 00:00 IMPRESSION: Please see combined report for performance of procedure and radiologic supervision and interpretation. PICC Line Insertion 05/05/17 00:00 IMPRESSION: SUCCESSFUL PLACEMENT OF A 5 FR dual LUMEN 39 CM PICC IN THE basilic VEIN. Assessment & Plan - Diagnosis (1) Diabetic foot infection Is this a current diagnosis for this admission?: Yes Plan: Continue wound VAC. Home/discharge when we are able to take the wound VAC off. (2) Hypertension Qualifiers: Hypertension type: essential hypertension Qualified Code(s): I10 - Essential (primary) hypertension Is this a current diagnosis for this admission?: Yes Plan: Uncontrolled. Added CHEYENNE inhibitor 06/17. Monitor renal function. (3) Peripheral neuropathy Is this a current diagnosis for this admission?: Yes Plan: He is on Elavil and gabapentin. (4) Uncontrolled type 2 diabetes mellitus Qualifiers: Diabetes mellitus complication status: with hyperglycemia Diabetes mellitus long term care pharmacist insulin use: with [facility] use Qualified Code(s): E11.65 - Type 2 diabetes mellitus with hyperglycemia; Z79.4 - vermin exterminator (current) use of insulin; Z79.4 - vermin exterminator (current) use of insulin; Z79.4 - assisted ( current) use of insulin; Z79.4 - vermin exterminator (current) use of insulin Is this a current diagnosis for this admission?: Yes Plan: Increase Lantus to 44 units twice daily. Continue to monitor, and increase accordingly. (5) Chronic kidney disease, stage 3 (moderate) Is this a current diagnosis for this admission?: Yes Plan: Stable. - Time Time Spent with patient: 15-24 minutes Medications reviewed and adjusted accordingly: Yes Anticipated discharge: Home - Inpatient Certification Medical Necessity: Failure to Improve With Outpatient Therapy, Risk of Complication if Not Cared For in Hospital
[2017-06-19] MEDS ORDERED: INSULIN GLARGINE,HUM.REC.ANLOG 300 UNIT/3 ML INSULN.PEN SUBCUT SCH (22:00)
[2017-06-19] MEDS: ISOSORBIDE MONONITRATE 30 MG TAB.ER.24H PO SCH (22:58)
[2017-06-19] MEDS: AMITRIPTYLINE HCL 75 MG TABLET PO SCH (23:01)
[2017-06-19] MEDS: TEMAZEPAM 15 MG CAPSULE PO SCH (23:01)
[2017-06-20] MEDS: HYDROCHLOROTHIAZIDE 12.5 MG CAPSULE PO SCH (07:45)
[2017-06-20] MEDS: OXYCODONE HCL IR 5 MG TABLET PO PRN ×2 (07:46→21:28)
[2017-06-20] MEDS: INSULIN LISPRO 100 UNIT/ML 3 ML VIAL SUBCUT SCH ×3 (07:47→17:29)
[2017-06-20] MEDS: INSULIN LISPRO 100 UNIT/ML 3 ML VIAL SUBCUT PRN ×2 (07:48→11:29)
[2017-06-20] MEDS ORDERED: INSULIN GLARGINE,HUM.REC.ANLOG 300 UNIT/3 ML INSULN.PEN SUBCUT SCH ×2 (10:00)
[2017-06-20] MEDS: ENOXAPARIN SODIUM INJ 40 MG/0.4 ML DISP.SYRIN SUBCUT SCH (11:30)
[2017-06-20] MEDS: LISINOPRIL 10 MG TABLET PO SCH (11:31)
[2017-06-20] MEDS: GABAPENTIN 300 MG CAPSULE PO SCH ×2 (11:32→21:28)
[2017-06-20] MEDS: METOPROLOL SUCCINATE 50 MG TAB.SR.24H PO SCH ×2 (11:32→21:29)
[2017-06-20] MEDS: AMLODIPINE BESYLATE 10 MG TABLET PO SCH (11:33)
[2017-06-20] MEDS: FAMOTIDINE 20 MG TABLET PO SCH ×2 (11:34→21:28)
[2017-06-20] MEDS: NORMAL SALINE 10 ML SDV (SCHEDULED) IV SCH ×2 (11:34→21:29)
[2017-06-20] MEDS: INSULIN GLARGINE,HUM.REC.ANLOG 300 UNIT/3 ML INSULN.PEN SUBCUT SCH ×2 (11:35→21:29)
[2017-06-20] MEDS: POLYETHYLENE GLYCOL 3350 POWDER 17 GM/1 PACKET PO SCH (12:02)
--- NOTE | 2017-06-20 14:18 | PDOC PROGRESS REPORT ---
Subjective Progress Note for:: 06/20/17 Subjective:: Summary: 56-year-old gentleman with a history of insulin-dependent diabetes who was admitted to this hospital on May 01. He is reportedly homeless and came in with an ulcer on the lateral part of his right foot for the preceding 3 months. It got worse with increasing pain with fevers, chills and nausea. MRI showed osteomyelitis of the right fifth metatarsal bone, and he underwent amputation of the right fifth toe at the fifth metatarsal bone with debridement on June 01. He has had wound VAC on and there is some reported noncompliance with it and with weightbearing on the right foot. he remains in the hospital allowing the wound to heal. A PICC line has been in place in the [facility] [place] since early/mid April. Wound vac to changed 06.19.17 06.20.17 He feels sleepy during the day. Otherwise, he has no complaints. Reason For Visit: DIABETIC FOOT ULCER Physical Exam Vital Signs: Temp Pulse Resp BP Pulse Ox 97.8 F 62 12 110/62 99 06/20/17 11:27 06/20/17 11:27 06/20/17 11:27 06/20/17 11:27 06/20/17 11:27 Intake & Output 06/19/17 06/20/17 06/21/17 06:59 06:59 06:59 Intake Total 1002 1207 330 Balance 1002 1207 330 General appearance: PRESENT: no acute distress, cooperative Head exam: PRESENT: atraumatic, normocephalic Eye exam: PRESENT: conjunctiva pink, EOMI, PERRLA Respiratory exam: PRESENT: clear to auscultation manuel. ABSENT: rales, rhonchi, wheezes Cardiovascular exam: PRESENT: RRR. ABSENT: diastolic murmur, rubs, systolic murmur Musculoskeletal exam: PRESENT: other - wound vac on right foot Neurological exam: PRESENT: alert, awake, oriented to person, oriented to place , oriented to time, oriented to situation, CN II-XII grossly intact. ABSENT: motor sensory deficit Psychiatric exam: PRESENT: appropriate affect, normal mood. ABSENT: homicidal ideation, suicidal ideation Results Laboratory Results: 06/16/17 05:40 06/19/17 06:03 Impressions: Foot X-Ray 05/01/17 14:36 IMPRESSION: PATIENT WITH PRIOR HEALED 4TH AND 5TH METATARSAL FRACTURES WITH SHAGGY APPEARANCE INVOLVING THE FRACTURE SITES WHICH COULD REPRESENT SEQUELA OF THE PRIOR HEALING OR SUPERIMPOSED OSTEOMYELITIS GIVEN PATIENT'S HISTORY OF ULCERATION. MRI IS FOR FURTHER EVALUATION CLINICALLY INDICATED. Lower Extremity MRI 05/01/17 15:51 IMPRESSION: Ulcer over the base of the 5th metatarsal with bony cortical with erosion and abnormal marrow signal in the proximal 2/3 of the 5th metatarsal compatible with osteomyelitis. Guidance Fluoroscopy 05/05/17 00:00 IMPRESSION: Please see combined report for performance of procedure and radiologic supervision and interpretation. Interventional Vascular Procedure 05/05/17 00:00 IMPRESSION: Please see combined report for performance of procedure and radiologic supervision and interpretation. PICC Line Insertion 05/05/17 00:00 IMPRESSION: SUCCESSFUL PLACEMENT OF A 5 FR dual LUMEN 39 CM PICC IN THE basilic VEIN. Assessment & Plan - Diagnosis (1) Diabetic foot infection Is this a current diagnosis for this admission?: Yes Plan: Continue wound VAC. Home/discharge when we are able to take the wound VAC off. (2) Hypertension Qualifiers: Hypertension type: essential hypertension Qualified Code(s): I10 - Essential (primary) hypertension Is this a current diagnosis for this admission?: Yes Plan: Uncontrolled. Added CHEYENNE inhibitor 06/17. Monitor renal function. (3) Peripheral neuropathy Is this a current diagnosis for this admission?: Yes Plan: He is on Elavil and gabapentin. It appears the gabapentin was added recently. Maybe this is why he feels sleepy during the day. I will cut down frequency from 4 times a day to twice a day. (4) Uncontrolled type 2 diabetes mellitus Qualifiers: Diabetes mellitus complication status: with hyperglycemia Diabetes mellitus [facility] insulin use: with long term care social worker use Qualified Code(s): E11.65 - Type 2 diabetes mellitus with hyperglycemia; Z79.4 - exterminator (current) use of insulin; Z79.4 - exterminator (current) use of insulin; Z79.4 - snf ( current) use of insulin; Z79.4 - snf (current) use of insulin Is this a current diagnosis for this admission?: Yes Plan: Increase Lantus to 44 units BID. Continue to monitor, and increase accordingly. (5) Chronic kidney disease, stage 3 (moderate) Is this a current diagnosis for this admission?: Yes Plan: Stable. Continue to monitor. - Time Time Spent with patient: 15-24 minutes Medications reviewed and adjusted accordingly: Yes Anticipated discharge: Home - Inpatient Certification Medical Necessity: Significant Comorbidiites Make Outpatient Treatment Too Risky , Need Close Monitoring Due to Risk of Patient Decompensation
[2017-06-20] MEDS: LACTULOSE SYRUP 20 GM/30 ML UDCUP PO PRN (21:28)
[2017-06-20] MEDS: TEMAZEPAM 15 MG CAPSULE PO SCH (21:28)
[2017-06-20] MEDS: AMITRIPTYLINE HCL 75 MG TABLET PO SCH (21:29)
[2017-06-20] MEDS: ISOSORBIDE MONONITRATE 30 MG TAB.ER.24H PO SCH (21:29)
[2017-06-21 06:49] LABS: ANION GAP 14 (5-19); BLOOD UREA NITROGEN 63 mg/dL (7-20); CALCIUM 9.7 mg/dL (8.4-10.2); CARBON DIOXIDE 24 mmol/L (22-30); CHLORIDE 102 mmol/L (98-107); GLUCOSE 164 mg/dL (75-110); POTASSIUM 4.9 mmol/L (3.6-5.0)
[2017-06-21] MEDS: HYDROCHLOROTHIAZIDE 12.5 MG CAPSULE PO SCH (08:20)
[2017-06-21] MEDS: INSULIN LISPRO 100 UNIT/ML 3 ML VIAL SUBCUT SCH ×3 (08:21→17:46)
[2017-06-21] MEDS: INSULIN LISPRO 100 UNIT/ML 3 ML VIAL SUBCUT PRN ×4 (08:22→23:10)
[2017-06-21] MEDS: OXYCODONE HCL IR 5 MG TABLET PO PRN ×2 (08:24→23:09)
[2017-06-21] MEDS ORDERED: LISINOPRIL 10 MG TABLET PO SCH (10:00)
[2017-06-21] MEDS: FAMOTIDINE 20 MG TABLET PO SCH ×2 (11:19→23:08)
[2017-06-21] MEDS: METOPROLOL SUCCINATE 50 MG TAB.SR.24H PO SCH ×2 (11:20→23:08)
[2017-06-21] MEDS: GABAPENTIN 300 MG CAPSULE PO SCH ×2 (11:20→23:09)
[2017-06-21] MEDS: AMLODIPINE BESYLATE 10 MG TABLET PO SCH (11:21)
[2017-06-21] MEDS: ENOXAPARIN SODIUM INJ 40 MG/0.4 ML DISP.SYRIN SUBCUT SCH (11:23)
[2017-06-21] MEDS: NORMAL SALINE 10 ML SDV (SCHEDULED) IV SCH ×2 (11:23→23:09)
[2017-06-21] MEDS: INSULIN GLARGINE,HUM.REC.ANLOG 300 UNIT/3 ML INSULN.PEN SUBCUT SCH ×2 (11:28→23:10)
[2017-06-21] MEDS: POLYETHYLENE GLYCOL 3350 POWDER 17 GM/1 PACKET PO SCH (11:34)
--- NOTE | 2017-06-21 13:20 | PDOC PROGRESS REPORT ---
Subjective Progress Note for:: 06/21/17 Subjective:: The patient is a 56-year-old black male with a history of insulin-dependent diabetes. The patient has been hospitalized since May 01, 2017. He came in with a diabetic foot ulcer that was complicated by osteomyelitis. The patient underwent amputation of the right fifth toe at the fifth metatarsal bone with debridement on June 01, 2017. He now has a wound VAC in place. He has had a PICC line in place since mid April. The wound VAC was changed on 06/19/2017. Today, he reports no complaints. Reason For Visit: DIABETIC FOOT ULCER Physical Exam Vital Signs: Temp Pulse Resp BP Pulse Ox 97.4 F 70 18 133/84 H 98 06/21/17 12:00 06/21/17 12:00 06/21/17 12:00 06/21/17 12:00 06/21/17 12:00 Intake & Output 06/20/17 06/21/17 06/22/17 06:59 06:59 06:59 Intake Total 1207 600 920 Balance 1207 600 920 Additional comments: The patient is an overweight black male who is not in any distress. His mentation is appropriate. His lungs are clear to auscultation. His cardiac exam is unremarkable and his abdominal exam is unremarkable. The right lower extremity does show some edema. The wound VAC is over the amputation site of the right fifth toe. Results Laboratory Results: 06/16/17 05:40 06/21/17 06:00 06/21/17 06:00 Sodium 140.0 Potassium 4.9 Chloride 102 Carbon Dioxide 24 Anion Gap 14 BUN 63 H Creatinine 2.83 H Est GFR ( Amer) 28 L Est GFR (Non-Af Amer) 23 L Glucose 164 H Calcium 9.7 Impressions: Foot X-Ray 05/01/17 14:36 IMPRESSION: PATIENT WITH PRIOR HEALED 4TH AND 5TH METATARSAL FRACTURES WITH SHAGGY APPEARANCE INVOLVING THE FRACTURE SITES WHICH COULD REPRESENT SEQUELA OF THE PRIOR HEALING OR SUPERIMPOSED OSTEOMYELITIS GIVEN PATIENT'S HISTORY OF ULCERATION. MRI IS FOR FURTHER EVALUATION CLINICALLY INDICATED. Lower Extremity MRI 05/01/17 15:51 IMPRESSION: Ulcer over the base of the 5th metatarsal with bony cortical with erosion and abnormal marrow signal in the proximal 2/3 of the 5th metatarsal compatible with osteomyelitis. Guidance Fluoroscopy 05/05/17 00:00 IMPRESSION: Please see combined report for performance of procedure and radiologic supervision and interpretation. Interventional Vascular Procedure 05/05/17 00:00 IMPRESSION: Please see combined report for performance of procedure and radiologic supervision and interpretation. PICC Line Insertion 05/05/17 00:00 IMPRESSION: SUCCESSFUL PLACEMENT OF A 5 FR dual LUMEN 39 CM PICC IN THE basilic VEIN. Assessment & Plan - Diagnosis (1) Chronic kidney disease, stage 3 (moderate) Is this a current diagnosis for this admission?: Yes (2) Diabetic foot infection Is this a current diagnosis for this admission?: Yes (3) Hypertension Qualifiers: Hypertension type: essential hypertension Qualified Code(s): I10 - Essential (primary) hypertension Is this a current diagnosis for this admission?: Yes (4) Peripheral neuropathy Is this a current diagnosis for this admission?: Yes (5) Uncontrolled type 2 diabetes mellitus Qualifiers: Diabetes mellitus complication status: with hyperglycemia Diabetes mellitus terminal carman insulin use: with [facility]ci use Qualified Code(s): E11.65 - Type 2 diabetes mellitus with hyperglycemia; Z79.4 - superintendent terminal (current) use of insulin; Z79.4 - superintendent terminal (current) use of insulin; Z79.4 - superintendent terminal ( current) use of insulin; Z79.4 - superintendent terminal (current) use of insulin Is this a current diagnosis for this admission?: Yes - Time Time Spent with patient: 15-24 minutes - Plan Summary Plan Summary: The patient is medically stable. We will plan on discharging the patient when the wound VAC can be removed. Note that the patient was started on an CHEYENNE inhibitor on 06/17/2017 and we will need to monitor lab work, particularly renal function and potassium. Also, Lantus was recently increased 2 days ago so we need to monitor his blood sugars. He is currently on Elavil and gabapentin for control of his neuropathy.
--- NOTE | 2017-06-21 13:31 | Progress Note ---
Provider Note Provider Note: The patient appears to have had a significant increase in his BUN and creatinine. I have stopped the CHEYENNE inhibitor. I will monitor blood sugars closely as he may not be metabolizing insulin as quickly. I have started intravenous fluids and we will recheck his labs in the morning.
[2017-06-21 14:17] LABS: HEMATOCRIT 37.5 % (37.9-51.0); HEMOGLOBIN 12.1 g/dL (13.5-17.0); MEAN CORPUSCULAR HEMOGLOBIN 28.1 pg (27.0-33.4); MEAN CORPUSCULAR HGB CONC 32.1 g/dL (32.0-36.0); MEAN CORPUSCULAR VOLUME 87 fl (80-97); PLATELET COUNT 243 10^3/uL (150-450); RED BLOOD COUNT 4.29 10^6/uL (4.35-5.55); RED CELL DISTRIBUTION WIDTH 14.3 % (11.5-14.0)
[2017-06-21 14:36] LABS: INTERNATIONAL RATION (INR) 0.95; PROTHROMBIN TIME 13.4 SEC (11.4-15.4)
[2017-06-21 14:37] LABS: PARTIAL THROMBOPLASTIN TIME 37.1 SEC (23.5-35.8)
[2017-06-21] MEDS: 1/2 NORMAL SALINE 1,000 ML IV PRN (14:38)
[2017-06-21] MEDS: TEMAZEPAM 15 MG CAPSULE PO SCH (23:03)
[2017-06-21] MEDS: AMITRIPTYLINE HCL 75 MG TABLET PO SCH (23:09)
[2017-06-21] MEDS: ISOSORBIDE MONONITRATE 30 MG TAB.ER.24H PO SCH (23:09)
[2017-06-22] MEDS: 1/2 NORMAL SALINE 1,000 ML IV PRN ×2 (00:16→10:46)
[2017-06-22] MEDS: NORMAL SALINE 10 ML SDV (AFTER EACH USE) IV PRN (06:34)
[2017-06-22 07:31] LABS: ANION GAP 9 (5-19); BLOOD UREA NITROGEN 62 mg/dL (7-20); CARBON DIOXIDE 26 mmol/L (22-30); CHLORIDE 106 mmol/L (98-107); GLUCOSE 106 mg/dL (75-110); MAGNESIUM 2.7 mg/dL (1.6-2.3); POTASSIUM 4.6 mmol/L (3.6-5.0); SODIUM 140.5 mmol/L (137-145)
[2017-06-22] MEDS: INSULIN LISPRO 100 UNIT/ML 3 ML VIAL SUBCUT SCH ×3 (08:34→16:14)
[2017-06-22] MEDS: METOPROLOL SUCCINATE 50 MG TAB.SR.24H PO SCH ×2 (09:25→21:33)
[2017-06-22] MEDS: FAMOTIDINE 20 MG TABLET PO SCH ×2 (09:26→21:32)
[2017-06-22] MEDS: AMLODIPINE BESYLATE 10 MG TABLET PO SCH (09:26)
[2017-06-22] MEDS: GABAPENTIN 300 MG CAPSULE PO SCH ×2 (09:26→21:32)
[2017-06-22] MEDS: LACTULOSE SYRUP 20 GM/30 ML UDCUP PO PRN (09:26)
[2017-06-22] MEDS: POLYETHYLENE GLYCOL 3350 POWDER 17 GM/1 PACKET PO SCH (09:27)
[2017-06-22] MEDS: ENOXAPARIN SODIUM INJ 30 MG/0.3 ML DISP.SYRIN SUBCUT SCH (09:30)
[2017-06-22] MEDS: NORMAL SALINE 10 ML SDV (SCHEDULED) IV SCH ×2 (09:32→21:37)
[2017-06-22] MEDS: INSULIN GLARGINE,HUM.REC.ANLOG 1,000 UNIT/10 ML UNIT SUBCUT SCH ×2 (09:35→21:32)
--- NOTE | 2017-06-22 14:17 | PDOC PROGRESS REPORT ---
Subjective Progress Note for:: 06/22/17 Subjective:: The patient is a 56-year-old black male with a history of insulin-dependent diabetes. The patient has been hospitalized since May 01, 2017. He came in with a diabetic foot ulcer that was complicated by osteomyelitis. The patient underwent amputation of the right fifth toe at the fifth metatarsal bone with debridement on June 01, 2017. He now has a wound VAC in place. He has had a PICC line in place since mid April. The wound VAC was changed on 06/19/2017. Today, he reports no complaints. Yesterday, labs were repeated. Labs demonstrated significant acute renal failure. Reason For Visit: DIABETIC FOOT ULCER Physical Exam Vital Signs: Temp Pulse Resp BP Pulse Ox 97.8 F 69 18 138/73 H 99 06/22/17 12:59 06/22/17 12:59 06/22/17 12:59 06/22/17 12:59 06/22/17 12:59 Intake & Output 06/21/17 06/22/17 06/23/17 06:59 06:59 06:59 Intake Total 600 2960 Balance 600 2960 Additional comments: The patient is an overweight black male. He is sitting up eating his breakfast. He appears to be nontoxic and not in any distress. He is in fairly good spirits today. The patient's facial appearance is unremarkable. His lungs are clear to auscultation bilaterally. His cardiac exam demonstrates a regular rate and rhythm without murmurs, gallops or rubs. The abdomen is protuberant but soft. Bowel sounds are present in the lower quadrants. He does not have guarding or rebound noted and there are no hernias or masses present. The lower extremities do demonstrate 2+ edema in the right lower extremity 1+ edema in the left lower extremity. The patient has a wound VAC placed over the surgical site which is the fifth toe on right foot. Skin is warm, dry and intact without other lesions or rashes. Results Laboratory Results: 06/21/17 13:59 06/22/17 06:34 06/21/17 06/21/17 06/22/17 13:59 13:59 06:34 WBC 8.0 RBC 4.29 L Hgb 12.1 L Hct 37.5 L MCV 87 MCH 28.1 MCHC 32.1 RDW 14.3 H Plt Count 243 Sodium 140.5 Potassium 4.6 Chloride 106 Carbon Dioxide 26 Anion Gap 9 BUN 62 H Creatinine 2.65 H 2.44 H Est GFR ( Amer) 30 L 33 L Est GFR (Non-Af Amer) 25 L 27 L Glucose 106 Calcium 9.0 Magnesium 2.7 H Impressions: Foot X-Ray 05/01/17 14:36 IMPRESSION: PATIENT WITH PRIOR HEALED 4TH AND 5TH METATARSAL FRACTURES WITH SHAGGY APPEARANCE INVOLVING THE FRACTURE SITES WHICH COULD REPRESENT SEQUELA OF THE PRIOR HEALING OR SUPERIMPOSED OSTEOMYELITIS GIVEN PATIENT'S HISTORY OF ULCERATION. MRI IS FOR FURTHER EVALUATION CLINICALLY INDICATED. Lower Extremity MRI 05/01/17 15:51 IMPRESSION: Ulcer over the base of the 5th metatarsal with bony cortical with erosion and abnormal marrow signal in the proximal 2/3 of the 5th metatarsal compatible with osteomyelitis. Guidance Fluoroscopy 05/05/17 00:00 IMPRESSION: Please see combined report for performance of procedure and radiologic supervision and interpretation. Interventional Vascular Procedure 05/05/17 00:00 IMPRESSION: Please see combined report for performance of procedure and radiologic supervision and interpretation. PICC Line Insertion 05/05/17 00:00 IMPRESSION: SUCCESSFUL PLACEMENT OF A 5 FR dual LUMEN 39 CM PICC IN THE basilic VEIN. Assessment & Plan - Diagnosis (1) Chronic kidney disease, stage 3 (moderate) Is this a current diagnosis for this admission?: Yes Plan: See below. (2) Diabetic foot infection Is this a current diagnosis for this admission?: Yes Plan: Continue wound VAC. (3) Hypertension Qualifiers: Hypertension type: essential hypertension Qualified Code(s): I10 - Essential (primary) hypertension Is this a current diagnosis for this admission?: Yes Plan: Blood pressure appears to be appropriate. I do not see any significant hypotension that occurred recently to instigate the acute renal failure. Continue current management. (4) Peripheral neuropathy Is this a current diagnosis for this admission?: Yes Plan: Continue gabapentin. 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 His blood sugars are currently okay, but, we need to follow closely in the setting of acute renal failure. (6) Acute renal failure Is this a current diagnosis for this admission?: Yes Plan: The patient was noted to be in acute on chronic renal failure yesterday. IV fluids were started. Looking back at the chart I do not see that he has been receiving any offending medications. His medications appear to be dosed appropriately based on his clinical status. He did not receive any recent contrast. He was started on IV fluids yesterday. Labs are minimally improved today. I will order a renal ultrasound. Will consult nephrology and will also order urinalysis with culture. It is imperative that we avoid any nephrotoxic agents. - Time Time Spent with patient: 25-34 minutes - Inpatient Certification Medical Necessity: Significant Comorbidiites Make Outpatient Treatment Too Risky , Need Close Monitoring Due to Risk of Patient Decompensation, Need For IV Fluids, Risk of Complication if Not Cared For in Hospital
[2017-06-22 17:39] LABS: AMORPHOUS SEDIMENT,URINE TRACE /HPF; APPEARANCE,URINE CLOUDY; BILIRUBIN,URINE NEGATIVE (NEGATIVE); COLOR,URINE YELLOW; GLUCOSE, URINE 50 mg/dL (NEGATIVE); KETONES,URINE NEGATIVE (NEGATIVE); LEUKOCYTE ESTERASE,URINE LARGE (NEGATIVE); NITRITE,URINE NEGATIVE (NEGATIVE); PROTEIN,URINE NEGATIVE (NEGATIVE); URINE SPECIFIC GRAVITY 1.012; UROBILINOGEN,URINE NEGATIVE mg/dL (<2.0)
[2017-06-22] MEDS ORDERED: MAG HYDROX/AL HYDROX/SIMETH SUSP 30 ML UDCUP PO ONE (19:52)
[2017-06-22] MEDS ORDERED: CALCIUM CARBONATE 500 MG TAB.CHEW PO PRN (19:52)
[2017-06-22] MEDS ORDERED: METOCLOPRAMIDE HCL ORAL SOLN 10 MG/10 ML UDCUP PO ONE (19:52)
[2017-06-22] MEDS ORDERED: LIDOCAINE 2% VISCOUS SOLN 20 ML UDCUP PO ONE (19:52)
[2017-06-22] MEDS: AMITRIPTYLINE HCL 75 MG TABLET PO SCH (21:32)
[2017-06-22] MEDS: TEMAZEPAM 15 MG CAPSULE PO SCH (21:32)
[2017-06-22] MEDS: ISOSORBIDE MONONITRATE 30 MG TAB.ER.24H PO SCH (21:32)
[2017-06-22] MEDS: OXYCODONE HCL IR 5 MG TABLET PO PRN (21:37)
[2017-06-23 06:33] LABS: ANION GAP 10 (5-19); BLOOD UREA NITROGEN 50 mg/dL (7-20); CARBON DIOXIDE 25 mmol/L (22-30); CHLORIDE 106 mmol/L (98-107); GLUCOSE 115 mg/dL (75-110); POTASSIUM 4.5 mmol/L (3.6-5.0); SODIUM 141.2 mmol/L (137-145)
--- NOTE | 2017-06-23 08:50 | RADIOLOGY REPORT (SQ) ---
EXAM DESCRIPTION: U/S RETROPERITON (RENAL/AORTA) COMPLETED DATE/TIME: 06/23/2017 7:04 am REASON FOR STUDY: Acute on chronic renal failure COMPARISON: None. TECHNIQUE: Dynamic and static grayscale images acquired of the kidneys and bladder and recorded on P ACS. Additional selected color Doppler and spectral images recorded. LIMITATIONS: None. FINDINGS: RIGHT KIDNEY: Normal size. Normal echogenicity. No solid or suspicious masses. No hydronep hrosis. No calcifications. LEFT KIDNEY: Normal size. Normal echogenicity. No solid or suspicious masses. No hydronephrosis. No calcifications. BLADDER: Small hypoechoic exophytic nodular tissue in the posterior inferior bladder measuring up to 2 cm. This is nonmobile. Bladder otherwise normal. OTHER FINDINGS: No other significant finding. IMPRESSION: 2 cm potential bladder base mass. Kidneys unremarkable. TECHNICAL DOCUMENTATION: JOB ID: [id number] [employer]- All Rights Reserved
[2017-06-23] MEDS: AMLODIPINE BESYLATE 10 MG TABLET PO SCH (09:31)
[2017-06-23] MEDS: GABAPENTIN 300 MG CAPSULE PO SCH ×2 (09:31→22:14)
[2017-06-23] MEDS: FAMOTIDINE 20 MG TABLET PO SCH ×2 (09:31→22:14)
[2017-06-23] MEDS: METOPROLOL SUCCINATE 50 MG TAB.SR.24H PO SCH ×2 (09:32→22:14)
[2017-06-23] MEDS: ENOXAPARIN SODIUM INJ 30 MG/0.3 ML DISP.SYRIN SUBCUT SCH (09:38)
[2017-06-23] MEDS: INSULIN GLARGINE,HUM.REC.ANLOG 1,000 UNIT/10 ML UNIT SUBCUT SCH (09:39)
[2017-06-23] MEDS: INSULIN LISPRO 100 UNIT/ML 3 ML VIAL SUBCUT SCH ×2 (09:43→14:52)
[2017-06-23] MEDS: NORMAL SALINE 10 ML SDV (SCHEDULED) IV SCH ×2 (09:47→22:14)
[2017-06-23] MEDS: OXYCODONE HCL IR 5 MG TABLET PO PRN ×2 (09:55→18:32)
[2017-06-23] MEDS: POLYETHYLENE GLYCOL 3350 POWDER 17 GM/1 PACKET PO SCH (09:56)
--- NOTE | 2017-06-23 17:56 | PDOC PROGRESS REPORT ---
Subjective Progress Note for:: 06/23/17 Subjective:: The patient is a 56-year-old black male with a history of insulin-dependent diabetes. The patient has been hospitalized since May 01, 2017. He came in with a diabetic foot ulcer that was complicated by osteomyelitis. The patient underwent amputation of the right fifth toe at the fifth metatarsal bone with debridement on June 01, 2017. He now has a wound VAC in place. He has had a PICC line in place since mid April. The wound VAC was changed on 06/19/2017. It is due to be changed today. Surgery is managing the wound VAC. The patient has underlying chronic kidney disease but did develop an increase in creatinine this weekend. Therefore, I treated the patient with IV fluids. I also ordered a renal ultrasound. This demonstrates a possible 2 cm bladder mass. Urology will need to evaluate the patient. The patient's creatinine is improved and I am going to stop fluids today. The patient is without any specific complaints today. Reason For Visit: DIABETIC FOOT ULCER Physical Exam Vital Signs: Temp Pulse Resp BP Pulse Ox 97.7 F 69 16 127/60 H 100 06/23/17 12:03 06/23/17 12:03 06/23/17 12:03 06/23/17 12:03 06/23/17 12:03 Intake & Output 06/22/17 06/23/17 06/24/17 06:59 06:59 06:59 Intake Total 2960 1750 Output Total 200 Balance 2960 1550 Additional comments: The patient is a middle-aged black male. He does not appear to be in any distress. His cognition and mentation are appropriate. His lungs are clear to auscultation bilaterally. His cardiac exam is regular without murmurs, gallops or rubs. The abdomen is soft, flat and benign. The lower extremities do show edema which is approximately 1+ in the left lower extremity and 2+ in the right lower extremity. It is stable to improved. Fifth toe on the right foot is covered with a wound VAC. Results Laboratory Results: 06/21/17 13:59 06/23/17 05:10 06/23/17 05:10 Sodium 141.2 Potassium 4.5 Chloride 106 Carbon Dioxide 25 Anion Gap 10 BUN 50 H Creatinine 1.81 H Est GFR ( Amer) 47 L Est GFR (Non-Af Amer) 39 L Glucose 115 H Calcium 9.0 Impressions: Foot X-Ray 05/01/17 14:36 IMPRESSION: PATIENT WITH PRIOR HEALED 4TH AND 5TH METATARSAL FRACTURES WITH SHAGGY APPEARANCE INVOLVING THE FRACTURE SITES WHICH COULD REPRESENT SEQUELA OF THE PRIOR HEALING OR SUPERIMPOSED OSTEOMYELITIS GIVEN PATIENT'S HISTORY OF ULCERATION. MRI IS FOR FURTHER EVALUATION CLINICALLY INDICATED. Lower Extremity MRI 05/01/17 15:51 IMPRESSION: Ulcer over the base of the 5th metatarsal with bony cortical with erosion and abnormal marrow signal in the proximal 2/3 of the 5th metatarsal compatible with osteomyelitis. Guidance Fluoroscopy 05/05/17 00:00 IMPRESSION: Please see combined report for performance of procedure and radiologic supervision and interpretation. Interventional Vascular Procedure 05/05/17 00:00 IMPRESSION: Please see combined report for performance of procedure and radiologic supervision and interpretation. PICC Line Insertion 05/05/17 00:00 IMPRESSION: SUCCESSFUL PLACEMENT OF A 5 FR dual LUMEN 39 CM PICC IN THE basilic VEIN. Renal Ultrasound 06/23/17 00:00 IMPRESSION: 2 cm potential bladder base mass. Kidneys unremarkable. Assessment & Plan - Diagnosis (1) Chronic kidney disease, stage 3 (moderate) Is this a current diagnosis for this admission?: Yes Plan: The patient's labs are improved today. I have stopped IV fluids. (2) Diabetic foot infection Is this a current diagnosis for this admission?: Yes Plan: Continue wound VAC. Surgery is following. (3) Hypertension Qualifiers: Hypertension type: essential hypertension Qualified Code(s): I10 - Essential (primary) hypertension Is this a current diagnosis for this admission?: Yes Plan: Blood pressure appears to be appropriate. I do not see any significant hypotension that occurred recently to instigate the acute renal failure. Continue current management. (4) Peripheral neuropathy Is this a current diagnosis for this admission?: Yes Plan: Continue gabapentin. 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 His blood sugars are currently okay, but, trending downward. Therefore, I am going to hold mealtime coverage. (6) Acute renal failure Is this a current diagnosis for this admission?: Yes (7) Bladder mass Is this a current diagnosis for this admission?: Yes Plan: This will need to be evaluated by urology. If urology services are not available here the patient will need to have a urology consultation arranged prior to discharge. - Time Time Spent with patient: 25-34 minutes - Inpatient Certification Medical Necessity: Risk of Complication if Not Cared For in Hospital
[2017-06-23] MEDS ORDERED: DEXTROSE 50%-WATER 25 GM/50 ML DISP.SYRIN IV PRN ×2 (17:58)
[2017-06-23] MEDS ORDERED: GLUCAGON,HUMAN RECOMB 1 MG INJ IM PRN (17:58)
[2017-06-23] MEDS ORDERED: DEXTROSE 40% GEL 15 GM TUBE PO PRN ×2 (17:58)
--- NOTE | 2017-06-23 20:42 | PDOC PROGRESS REPORT ---
Subjective Progress Note for:: 06/23/17 Subjective:: right foot wound Reason For Visit: DIABETIC FOOT ULCER Physical Exam Vital Signs: Temp Pulse Resp BP Pulse Ox 98.6 F 63 20 122/64 97 06/23/17 15:54 06/23/17 15:54 06/23/17 15:54 06/23/17 15:54 06/23/17 15:54 Intake & Output 06/22/17 06/23/17 06/24/17 06:59 06:59 06:59 Intake Total 2960 1750 1182 Output Total 200 Balance 2960 1550 1182 Exam: Wound vac removed. Wound roughly about 10 cm x 2cm x 0.5 cm deep. The foot itself is swollen and quite edematous. Results Laboratory Results: 06/21/17 13:59 06/23/17 05:10 06/23/17 05:10 Sodium 141.2 Potassium 4.5 Chloride 106 Carbon Dioxide 25 Anion Gap 10 BUN 50 H Creatinine 1.81 H Est GFR ( Amer) 47 L Est GFR (Non-Af Amer) 39 L Glucose 115 H Calcium 9.0 Impressions: Foot X-Ray 05/01/17 14:36 IMPRESSION: PATIENT WITH PRIOR HEALED 4TH AND 5TH METATARSAL FRACTURES WITH SHAGGY APPEARANCE INVOLVING THE FRACTURE SITES WHICH COULD REPRESENT SEQUELA OF THE PRIOR HEALING OR SUPERIMPOSED OSTEOMYELITIS GIVEN PATIENT'S HISTORY OF ULCERATION. MRI IS FOR FURTHER EVALUATION CLINICALLY INDICATED. Lower Extremity MRI 05/01/17 15:51 IMPRESSION: Ulcer over the base of the 5th metatarsal with bony cortical with erosion and abnormal marrow signal in the proximal 2/3 of the 5th metatarsal compatible with osteomyelitis. Guidance Fluoroscopy 05/05/17 00:00 IMPRESSION: Please see combined report for performance of procedure and radiologic supervision and interpretation. Interventional Vascular Procedure 05/05/17 00:00 IMPRESSION: Please see combined report for performance of procedure and radiologic supervision and interpretation. PICC Line Insertion 05/05/17 00:00 IMPRESSION: SUCCESSFUL PLACEMENT OF A 5 FR dual LUMEN 39 CM PICC IN THE basilic VEIN. Renal Ultrasound 06/23/17 00:00 IMPRESSION: 2 cm potential bladder base mass. Kidneys unremarkable. Assessment & Plan - Time Time Spent with patient: 15-24 minutes - Inpatient Certification Medical Necessity: Need for IV Antibiotics, Risk of Complication if Not Cared For in Hospital - Plan Summary Plan Summary: Patient does not have any place to go home to and won't be able to take care of wound. Needs continued wound vac anticipate healing in 2 weeks. Needs to elevate right leg for better wound healing.
[2017-06-23] MEDS ORDERED: TEMAZEPAM 15 MG CAPSULE PO SCH (22:00)
[2017-06-23] MEDS: TEMAZEPAM 15 MG CAPSULE PO SCH (22:14)
[2017-06-23] MEDS: INSULIN GLARGINE,HUM.REC.ANLOG 300 UNIT/3 ML INSULN.PEN SUBCUT SCH (22:14)
[2017-06-23] MEDS: AMITRIPTYLINE HCL 75 MG TABLET PO SCH (22:14)
[2017-06-23] MEDS: ISOSORBIDE MONONITRATE 30 MG TAB.ER.24H PO SCH (22:14)
[2017-06-24] MEDS ORDERED: ALTEPLASE INJ 2 MG VIAL (CATH CLEARANCE) INJ ONE (06:00)
[2017-06-24 06:02] LABS: ANION GAP 12 (5-19); BLOOD UREA NITROGEN 38 mg/dL (7-20); CALCIUM 9.5 mg/dL (8.4-10.2); CARBON DIOXIDE 24 mmol/L (22-30); CHLORIDE 108 mmol/L (98-107); GLUCOSE 119 mg/dL (75-110); POTASSIUM 4.7 mmol/L (3.6-5.0); SODIUM 143.6 mmol/L (137-145)
[2017-06-24] MEDS: ENOXAPARIN SODIUM INJ 30 MG/0.3 ML DISP.SYRIN SUBCUT SCH (10:45)
[2017-06-24] MEDS: AMLODIPINE BESYLATE 10 MG TABLET PO SCH (10:46)
[2017-06-24] MEDS: GABAPENTIN 300 MG CAPSULE PO SCH ×2 (10:46→21:57)
[2017-06-24] MEDS: FAMOTIDINE 20 MG TABLET PO SCH ×2 (10:47→21:57)
[2017-06-24] MEDS: METOPROLOL SUCCINATE 50 MG TAB.SR.24H PO SCH ×2 (10:47→21:57)
[2017-06-24] MEDS: NORMAL SALINE 10 ML SDV (SCHEDULED) IV SCH ×2 (10:48→21:58)
[2017-06-24] MEDS: NORMAL SALINE 10 ML SDV (AFTER EACH USE) IV PRN (10:48)
[2017-06-24] MEDS: INSULIN GLARGINE,HUM.REC.ANLOG 300 UNIT/3 ML INSULN.PEN SUBCUT SCH ×2 (10:52→21:46)
[2017-06-24] MEDS: POLYETHYLENE GLYCOL 3350 POWDER 17 GM/1 PACKET PO SCH (10:54)
[2017-06-24] MEDS: INSULIN LISPRO 100 UNIT/ML 3 ML VIAL SUBCUT PRN ×2 (17:25→22:01)
[2017-06-24] MEDS ORDERED: INSULIN GLARGINE,HUM.REC.ANLOG 1,000 UNIT/10 ML UNIT SUBCUT ONE (21:43)
[2017-06-24] MEDS: TEMAZEPAM 15 MG CAPSULE PO SCH (21:56)
[2017-06-24] MEDS: ISOSORBIDE MONONITRATE 30 MG TAB.ER.24H PO SCH (21:57)
[2017-06-24] MEDS: OXYCODONE HCL IR 5 MG TABLET PO PRN (21:57)
[2017-06-24] MEDS: AMITRIPTYLINE HCL 75 MG TABLET PO SCH (21:57)
[2017-06-25 06:33] LABS: ANION GAP 9 (5-19); BLOOD UREA NITROGEN 30 mg/dL (7-20); CALCIUM 10.2 mg/dL (8.4-10.2); CARBON DIOXIDE 29 mmol/L (22-30); CHLORIDE 106 mmol/L (98-107); GLUCOSE 102 mg/dL (75-110); SODIUM 143.8 mmol/L (137-145)
[2017-06-25] MEDS: INSULIN GLARGINE,HUM.REC.ANLOG 300 UNIT/3 ML INSULN.PEN SUBCUT SCH ×2 (10:01→21:13)
[2017-06-25] MEDS: OXYCODONE HCL IR 5 MG TABLET PO PRN ×2 (10:01→21:14)
[2017-06-25] MEDS: ENOXAPARIN SODIUM INJ 30 MG/0.3 ML DISP.SYRIN SUBCUT SCH (10:01)
[2017-06-25] MEDS: AMLODIPINE BESYLATE 10 MG TABLET PO SCH (10:02)
[2017-06-25] MEDS: GABAPENTIN 300 MG CAPSULE PO SCH ×2 (10:02→21:13)
[2017-06-25] MEDS: FAMOTIDINE 20 MG TABLET PO SCH ×2 (10:03→21:13)
[2017-06-25] MEDS: METOPROLOL SUCCINATE 50 MG TAB.SR.24H PO SCH ×2 (10:03→21:13)
[2017-06-25] MEDS: NORMAL SALINE 10 ML SDV (SCHEDULED) IV SCH ×2 (10:03→21:16)
[2017-06-25] MEDS: INSULIN LISPRO 100 UNIT/ML 3 ML VIAL SUBCUT PRN ×3 (11:52→21:13)
--- NOTE | 2017-06-25 15:21 | PDOC PROGRESS REPORT ---
Subjective Progress Note for:: 06/24/17 Subjective:: Patient is stable unchanged has no complaints Reason For Visit: DIABETIC FOOT ULCER Physical Exam Vital Signs: Temp Pulse Resp BP Pulse Ox 97.9 F 68 12 165/70 H 99 06/25/17 08:04 06/25/17 08:04 06/25/17 08:04 06/25/17 08:04 06/25/17 08:04 Intake & Output 06/24/17 06/25/17 06/26/17 00:59 00:59 00:59 Intake Total 1422 925 354 Output Total 300 Balance 1122 925 354 He does not appear to be in any distress. His cognition and mentation are appropriate. His lungs are clear to auscultation bilaterally. His cardiac exam is regular without murmurs, gallops or rubs. The abdomen is soft, flat and benign. The lower extremities do show edema which is approximately 1+ in the left lower extremity and 2+ in the right lower extremity Results Laboratory Results: 06/21/17 13:59 06/25/17 05:00 06/25/17 05:00 Sodium 143.8 Potassium 5.0 Chloride 106 Carbon Dioxide 29 Anion Gap 9 BUN 30 H Creatinine 1.59 H Est GFR ( Amer) 54 L Est GFR (Non-Af Amer) 45 L Glucose 102 Calcium 10.2 06/22/17 17:19 Clean Catch Midstream Urine Culture - Final Enterococcus Faecalis(Group D) Impressions: Foot X-Ray 05/01/17 14:36 IMPRESSION: PATIENT WITH PRIOR HEALED 4TH AND 5TH METATARSAL FRACTURES WITH SHAGGY APPEARANCE INVOLVING THE FRACTURE SITES WHICH COULD REPRESENT SEQUELA OF THE PRIOR HEALING OR SUPERIMPOSED OSTEOMYELITIS GIVEN PATIENT'S HISTORY OF ULCERATION. MRI IS FOR FURTHER EVALUATION CLINICALLY INDICATED. Lower Extremity MRI 05/01/17 15:51 IMPRESSION: Ulcer over the base of the 5th metatarsal with bony cortical with erosion and abnormal marrow signal in the proximal 2/3 of the 5th metatarsal compatible with osteomyelitis. Guidance Fluoroscopy 05/05/17 00:00 IMPRESSION: Please see combined report for performance of procedure and radiologic supervision and interpretation. Interventional Vascular Procedure 05/05/17 00:00 IMPRESSION: Please see combined report for performance of procedure and radiologic supervision and interpretation. PICC Line Insertion 05/05/17 00:00 IMPRESSION: SUCCESSFUL PLACEMENT OF A 5 FR dual LUMEN 39 CM PICC IN THE basilic VEIN. Renal Ultrasound 06/23/17 00:00 IMPRESSION: 2 cm potential bladder base mass. Kidneys unremarkable. Assessment & Plan - Diagnosis (1) Acute renal failure Is this a current diagnosis for this admission?: Yes (2) Bladder mass Is this a current diagnosis for this admission?: Yes (3) Chronic kidney disease, stage 3 (moderate) Is this a current diagnosis for this admission?: Yes (4) Diabetic foot infection Is this a current diagnosis for this admission?: Yes (5) Hyperlipidemia Is this a current diagnosis for this admission?: Yes (6) Hypertension Qualifiers: Hypertension type: essential hypertension Qualified Code(s): I10 - Essential (primary) hypertension Is this a current diagnosis for this admission?: Yes (7) Peripheral neuropathy Qualifiers: Peripheral neuropathy type: polyneuropathy, unspecified Qualified Code(s): G62.9 - Polyneuropathy, unspecified Is this a current diagnosis for this admission?: Yes - Time Time Spent with patient: 15-24 minutes - Plan Summary Plan Summary: Continue present management
--- NOTE | 2017-06-25 15:24 | PDOC PROGRESS REPORT ---
Subjective Progress Note for:: 06/25/17 Subjective:: Patient has no complaints Is quite stable Reason For Visit: DIABETIC FOOT ULCER Physical Exam Vital Signs: Temp Pulse Resp BP Pulse Ox 97.9 F 68 12 165/70 H 99 06/25/17 08:04 06/25/17 08:04 06/25/17 08:04 06/25/17 08:04 06/25/17 08:04 Intake & Output 06/24/17 06/25/17 06/26/17 00:59 00:59 00:59 Intake Total 1422 925 354 Output Total 300 Balance 1122 925 354 No acute distress HEENT unremarkable Heart regular rhythm Lungs are clear Abdomen soft nontender Right foot slightly swollen there is a wound VAC Results Laboratory Results: 06/21/17 13:59 06/25/17 05:00 06/25/17 05:00 Sodium 143.8 Potassium 5.0 Chloride 106 Carbon Dioxide 29 Anion Gap 9 BUN 30 H Creatinine 1.59 H Est GFR ( Amer) 54 L Est GFR (Non-Af Amer) 45 L Glucose 102 Calcium 10.2 06/22/17 17:19 Clean Catch Midstream Urine Culture - Final Enterococcus Faecalis(Group D) Impressions: Foot X-Ray 05/01/17 14:36 IMPRESSION: PATIENT WITH PRIOR HEALED 4TH AND 5TH METATARSAL FRACTURES WITH SHAGGY APPEARANCE INVOLVING THE FRACTURE SITES WHICH COULD REPRESENT SEQUELA OF THE PRIOR HEALING OR SUPERIMPOSED OSTEOMYELITIS GIVEN PATIENT'S HISTORY OF ULCERATION. MRI IS FOR FURTHER EVALUATION CLINICALLY INDICATED. Lower Extremity MRI 05/01/17 15:51 IMPRESSION: Ulcer over the base of the 5th metatarsal with bony cortical with erosion and abnormal marrow signal in the proximal 2/3 of the 5th metatarsal compatible with osteomyelitis. Guidance Fluoroscopy 05/05/17 00:00 IMPRESSION: Please see combined report for performance of procedure and radiologic supervision and interpretation. Interventional Vascular Procedure 05/05/17 00:00 IMPRESSION: Please see combined report for performance of procedure and radiologic supervision and interpretation. PICC Line Insertion 05/05/17 00:00 IMPRESSION: SUCCESSFUL PLACEMENT OF A 5 FR dual LUMEN 39 CM PICC IN THE basilic VEIN. Renal Ultrasound 06/23/17 00:00 IMPRESSION: 2 cm potential bladder base mass. Kidneys unremarkable. Assessment & Plan - Diagnosis (1) Acute renal failure Is this a current diagnosis for this admission?: Yes (2) Bladder mass Is this a current diagnosis for this admission?: Yes (3) Chronic kidney disease, stage 3 (moderate) Is this a current diagnosis for this admission?: Yes (4) Diabetic foot infection Is this a current diagnosis for this admission?: Yes (5) Hyperlipidemia Is this a current diagnosis for this admission?: Yes (6) Hypertension Qualifiers: Hypertension type: essential hypertension Qualified Code(s): I10 - Essential (primary) hypertension Is this a current diagnosis for this admission?: Yes (7) Peripheral neuropathy Qualifiers: Peripheral neuropathy type: polyneuropathy, unspecified Qualified Code(s): G62.9 - Polyneuropathy, unspecified Is this a current diagnosis for this admission?: Yes (8) Enterococcus faecalis infection Is this a current diagnosis for this admission?: Yes Plan: Urinary tract infection Initiate treatment with ampicillin p.o. - Time Time Spent with patient: 15-24 minutes - Plan Summary Plan Summary: Discontinue PICC line
[2017-06-25] MEDS: AMPICILLIN TRIHYD 500 MG CAPSULE PO SCH (17:06)
[2017-06-25] MEDS ORDERED: AMPICILLIN SODIUM/SULBACTAM NA 1.5 GM in NORMAL SALINE 50 ML IV SCH (18:00)
[2017-06-25] MEDS: ISOSORBIDE MONONITRATE 30 MG TAB.ER.24H PO SCH (21:13)
[2017-06-25] MEDS: AMITRIPTYLINE HCL 75 MG TABLET PO SCH (21:13)
[2017-06-25] MEDS: TEMAZEPAM 15 MG CAPSULE PO SCH (21:13)
[2017-06-26] MEDS: AMPICILLIN TRIHYD 500 MG CAPSULE PO SCH ×2 (05:35→17:50)
[2017-06-26] MEDS: AMLODIPINE BESYLATE 10 MG TABLET PO SCH (09:25)
[2017-06-26] MEDS: FAMOTIDINE 20 MG TABLET PO SCH ×2 (09:25→22:02)
[2017-06-26] MEDS: GABAPENTIN 300 MG CAPSULE PO SCH ×2 (09:25→22:01)
[2017-06-26] MEDS: METOPROLOL SUCCINATE 50 MG TAB.SR.24H PO SCH ×2 (09:26→22:02)
[2017-06-26] MEDS: ENOXAPARIN SODIUM INJ 30 MG/0.3 ML DISP.SYRIN SUBCUT SCH (09:27)
[2017-06-26] MEDS: INSULIN LISPRO 100 UNIT/ML 3 ML VIAL SUBCUT PRN ×2 (09:27→22:01)
[2017-06-26] MEDS: INSULIN GLARGINE,HUM.REC.ANLOG 300 UNIT/3 ML INSULN.PEN SUBCUT SCH ×2 (09:28→22:01)
[2017-06-26] MEDS: NORMAL SALINE 10 ML SDV (SCHEDULED) IV SCH ×2 (09:29→22:03)
[2017-06-26] MEDS: OXYCODONE HCL IR 5 MG TABLET PO PRN (09:34)
--- NOTE | 2017-06-26 11:09 | PDOC PROGRESS REPORT ---
Subjective Progress Note for:: 06/26/17 Subjective:: Patient appears a little restless today, and anxious Otherwise clinical status is unchanged Reason For Visit: DIABETIC FOOT ULCER Physical Exam Vital Signs: Temp Pulse Resp BP Pulse Ox 97.9 F 73 16 172/86 H 100 06/26/17 07:48 06/26/17 07:48 06/26/17 07:48 06/26/17 07:48 06/26/17 07:48 Intake & Output 06/25/17 06/26/17 06/27/17 00:59 00:59 00:59 Intake Total 925 1274 Balance 925 1274 General appearance: PRESENT: no acute distress, cooperative Head exam: PRESENT: atraumatic, normocephalic Eye exam: PRESENT: conjunctiva pink, EOMI, PERRLA. ABSENT: scleral icterus Neck exam: ABSENT: carotid bruit, JVD, lymphadenopathy, thyromegaly Respiratory exam: PRESENT: clear to auscultation manuel. ABSENT: rales, rhonchi, wheezes Cardiovascular exam: PRESENT: RRR. ABSENT: diastolic murmur, rubs, systolic murmur GI/Abdominal exam: PRESENT: normal bowel sounds, soft. ABSENT: distended, guarding, mass, organolmegaly, rebound, tenderness Extremities exam: PRESENT: other - Slight edema right lower extremity wound VAC in place Results Laboratory Results: 06/21/17 13:59 06/25/17 05:00 06/22/17 17:19 Clean Catch Midstream Urine Culture - Final Enterococcus Faecalis(Group D) Impressions: Foot X-Ray 05/01/17 14:36 IMPRESSION: PATIENT WITH PRIOR HEALED 4TH AND 5TH METATARSAL FRACTURES WITH SHAGGY APPEARANCE INVOLVING THE FRACTURE SITES WHICH COULD REPRESENT SEQUELA OF THE PRIOR HEALING OR SUPERIMPOSED OSTEOMYELITIS GIVEN PATIENT'S HISTORY OF ULCERATION. MRI IS FOR FURTHER EVALUATION CLINICALLY INDICATED. Lower Extremity MRI 05/01/17 15:51 IMPRESSION: Ulcer over the base of the 5th metatarsal with bony cortical with erosion and abnormal marrow signal in the proximal 2/3 of the 5th metatarsal compatible with osteomyelitis. Guidance Fluoroscopy 05/05/17 00:00 IMPRESSION: Please see combined report for performance of procedure and radiologic supervision and interpretation. Interventional Vascular Procedure 05/05/17 00:00 IMPRESSION: Please see combined report for performance of procedure and radiologic supervision and interpretation. PICC Line Insertion 05/05/17 00:00 IMPRESSION: SUCCESSFUL PLACEMENT OF A 5 FR dual LUMEN 39 CM PICC IN THE basilic VEIN. Renal Ultrasound 06/23/17 00:00 IMPRESSION: 2 cm potential bladder base mass. Kidneys unremarkable. Assessment & Plan - Diagnosis (1) Acute renal failure Is this a current diagnosis for this admission?: Yes (2) Bladder mass Is this a current diagnosis for this admission?: Yes (3) Chronic kidney disease, stage 3 (moderate) Is this a current diagnosis for this admission?: Yes (4) Diabetic foot infection Is this a current diagnosis for this admission?: Yes (5) Hyperlipidemia Is this a current diagnosis for this admission?: Yes (6) Hypertension Qualifiers: Hypertension type: essential hypertension Qualified Code(s): I10 - Essential (primary) hypertension Is this a current diagnosis for this admission?: Yes Plan: Blood pressures high Will initiate Diovan Increase imdur (7) Peripheral neuropathy Qualifiers: Peripheral neuropathy type: polyneuropathy, unspecified Qualified Code(s): G62.9 - Polyneuropathy, unspecified Is this a current diagnosis for this admission?: Yes (8) Enterococcus faecalis infection Is this a current diagnosis for this admission?: Yes - Plan Summary Plan Summary: Continue ampicillin p.o. for enterococcus ; continue wound care Patient will remain in the hospital until his foot is healed and wound VAC is removed Unfortunately the patient is homeless and does not have any medical insurance Medicaid application pending
[2017-06-26] MEDS: VALSARTAN 160 MG TABLET PO SCH (12:56)
[2017-06-26] MEDS: AMITRIPTYLINE HCL 75 MG TABLET PO SCH (22:01)
[2017-06-26] MEDS: ISOSORBIDE MONONITRATE 30 MG TAB.ER.24H PO SCH (22:02)
[2017-06-26] MEDS: TEMAZEPAM 15 MG CAPSULE PO SCH (22:02)
[2017-06-27] MEDS: AMPICILLIN TRIHYD 500 MG CAPSULE PO SCH ×2 (06:08→17:10)
[2017-06-27] MEDS: INSULIN LISPRO 100 UNIT/ML 3 ML VIAL SUBCUT PRN ×2 (07:54→12:19)
[2017-06-27] MEDS: NORMAL SALINE 10 ML SDV (SCHEDULED) IV SCH ×2 (09:03→22:01)
[2017-06-27] MEDS: ENOXAPARIN SODIUM INJ 30 MG/0.3 ML DISP.SYRIN SUBCUT SCH (09:03)
[2017-06-27] MEDS: FAMOTIDINE 20 MG TABLET PO SCH ×2 (09:23→22:00)
[2017-06-27] MEDS: AMLODIPINE BESYLATE 10 MG TABLET PO SCH (09:23)
[2017-06-27] MEDS: INSULIN GLARGINE,HUM.REC.ANLOG 300 UNIT/3 ML INSULN.PEN SUBCUT SCH ×2 (09:24→22:00)
[2017-06-27] MEDS: METOPROLOL SUCCINATE 50 MG TAB.SR.24H PO SCH ×2 (09:24→22:01)
[2017-06-27] MEDS: GABAPENTIN 300 MG CAPSULE PO SCH ×2 (09:24→22:00)
[2017-06-27] MEDS: VALSARTAN 160 MG TABLET PO SCH (12:19)
[2017-06-27] MEDS ORDERED: CLONIDINE HCL 0.1 MG TABLET PO PRN (14:32)
--- NOTE | 2017-06-27 14:32 | PDOC PROGRESS REPORT ---
Subjective Progress Note for:: 06/27/17 Subjective:: Patient standing up and adjusting thermostat. 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 Patient is concerned about what is going to happen to him as he does not have anywhere to live. Per the staff, patient has been inappropriate with the nursing staff and CNAs. They are now using the [facility] system. Reason For Visit: DIABETIC FOOT ULCER Physical Exam Vital Signs: Temp Pulse Resp BP Pulse Ox 98.2 F 65 16 160/66 H 100 06/27/17 11:13 06/27/17 11:13 06/27/17 11:13 06/27/17 11:13 06/27/17 11:13 Intake & Output 06/26/17 06/27/17 06/28/17 06:59 06:59 06:59 Intake Total 1274 1780 Balance 1274 1780 General appearance: PRESENT: no acute distress, well-developed, well-nourished Head exam: PRESENT: atraumatic, normocephalic Eye exam: PRESENT: conjunctiva pink, EOMI, PERRLA. ABSENT: scleral icterus Ear exam: PRESENT: normal external ear exam Mouth exam: PRESENT: moist, tongue midline Neck exam: ABSENT: carotid bruit, JVD, lymphadenopathy, thyromegaly Respiratory exam: PRESENT: clear to auscultation manuel. ABSENT: rales, rhonchi, wheezes Cardiovascular exam: PRESENT: RRR. ABSENT: diastolic murmur, rubs, systolic murmur Pulses: PRESENT: normal dorsalis pedis pul Vascular exam: PRESENT: normal capillary refill GI/Abdominal exam: PRESENT: normal bowel sounds, soft. ABSENT: distended, guarding, mass, organolmegaly, rebound, tenderness Rectal exam: PRESENT: deferred Extremities exam: PRESENT: full ROM. 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 ABSENT: motor sensory deficit Psychiatric exam: PRESENT: appropriate affect, normal mood. ABSENT: homicidal ideation, suicidal ideation Skin exam: PRESENT: dry, intact, warm. ABSENT: cyanosis, rash Results Laboratory Results: 06/21/17 13:59 06/25/17 05:00 Impressions: Foot X-Ray 05/01/17 14:36 IMPRESSION: PATIENT WITH PRIOR HEALED 4TH AND 5TH METATARSAL FRACTURES WITH SHAGGY APPEARANCE INVOLVING THE FRACTURE SITES WHICH COULD REPRESENT SEQUELA OF THE PRIOR HEALING OR SUPERIMPOSED OSTEOMYELITIS GIVEN PATIENT'S HISTORY OF ULCERATION. MRI IS FOR FURTHER EVALUATION CLINICALLY INDICATED. Lower Extremity MRI 05/01/17 15:51 IMPRESSION: Ulcer over the base of the 5th metatarsal with bony cortical with erosion and abnormal marrow signal in the proximal 2/3 of the 5th metatarsal compatible with osteomyelitis. Guidance Fluoroscopy 05/05/17 00:00 IMPRESSION: Please see combined report for performance of procedure and radiologic supervision and interpretation. Interventional Vascular Procedure 05/05/17 00:00 IMPRESSION: Please see combined report for performance of procedure and radiologic supervision and interpretation. PICC Line Insertion 05/05/17 00:00 IMPRESSION: SUCCESSFUL PLACEMENT OF A 5 FR dual LUMEN 39 CM PICC IN THE basilic VEIN. Renal Ultrasound 06/23/17 00:00 IMPRESSION: 2 cm potential bladder base mass. Kidneys unremarkable. Assessment & Plan - Diagnosis (1) Acute renal failure Is this a current diagnosis for this admission?: Yes Plan: Patient with acute on chronic CKD 3 possible due to NSAIDS, infections and or ACEI in the presence of dehydration. Appears to have improved but will monitor especially with patient being started on an ARB. (2) Bladder mass Is this a current diagnosis for this admission?: Yes Plan: Will need follow up as out patient. (3) Chronic kidney disease, stage 3 (moderate) Is this a current diagnosis for this admission?: Yes Plan: Appears to be stable. Likely secondary to diabetes and hypertension. Patient started on ARB for possible proteinurea. Will monitor for worsening renal function. (4) Diabetic foot infection Is this a current diagnosis for this admission?: Yes Plan: Management per surgery. Patient with wound vac in place. Patient ampicillin for entercoccus faecalis infection. (5) Enterococcus faecalis infection Is this a current diagnosis for this admission?: Yes (6) Hyperlipidemia Is this a current diagnosis for this admission?: Yes Plan: Patient not on statin but should be on one. Will start simvastatin 20mg QHS. (7) Hypertension Qualifiers: Hypertension type: essential hypertension Qualified Code(s): I10 - Essential (primary) hypertension Is this a current diagnosis for this admission?: Yes Plan: Not well controlled. Patient just started on diovan and imdur increased on 06/26. Will continue to monitor and given PRN medications for better controlled. (8) Peripheral neuropathy Qualifiers: Peripheral neuropathy type: polyneuropathy, unspecified Qualified Code(s): G62.9 - Polyneuropathy, unspecified Is this a current diagnosis for this admission?: Yes Plan: Continue gabapentin. - Time Time Spent with patient: Less than 15 minutes Anticipated discharge: SNF - Inpatient Certification Medical Necessity: Risk of Complication if Not Cared For in Hospital
[2017-06-27] MEDS ORDERED: SIMVASTATIN 10 MG TABLET PO ONE (15:00)
[2017-06-27] MEDS: TEMAZEPAM 15 MG CAPSULE PO SCH (22:00)
[2017-06-27] MEDS: AMITRIPTYLINE HCL 75 MG TABLET PO SCH (22:00)
[2017-06-27] MEDS: ISOSORBIDE MONONITRATE 30 MG TAB.ER.24H PO SCH (22:00)
[2017-06-28] MEDS: AMPICILLIN TRIHYD 500 MG CAPSULE PO SCH ×2 (06:08→17:15)
[2017-06-28] MEDS ORDERED: INSULIN GLARGINE,HUM.REC.ANLOG 300 UNIT/3 ML INSULN.PEN SUBCUT SCH (07:37)
[2017-06-28] MEDS: NORMAL SALINE 10 ML SDV (SCHEDULED) IV SCH ×2 (09:02→21:54)
[2017-06-28] MEDS: ENOXAPARIN SODIUM INJ 30 MG/0.3 ML DISP.SYRIN SUBCUT SCH (09:02)
[2017-06-28] MEDS: FAMOTIDINE 20 MG TABLET PO SCH ×2 (09:59→21:34)
[2017-06-28] MEDS: AMLODIPINE BESYLATE 10 MG TABLET PO SCH (09:59)
[2017-06-28] MEDS: METOPROLOL SUCCINATE 50 MG TAB.SR.24H PO SCH ×2 (09:59→21:35)
[2017-06-28] MEDS: GABAPENTIN 300 MG CAPSULE PO SCH ×2 (09:59→21:34)
[2017-06-28] MEDS: INSULIN GLARGINE,HUM.REC.ANLOG 1,000 UNIT/10 ML UNIT SUBCUT SCH ×2 (09:59→21:35)
[2017-06-28] MEDS: INSULIN LISPRO 100 UNIT/ML 3 ML VIAL SUBCUT PRN ×3 (11:34→21:35)
[2017-06-28] MEDS: VALSARTAN 160 MG TABLET PO SCH (11:34)
[2017-06-28] MEDS: TEMAZEPAM 15 MG CAPSULE PO SCH (21:34)
[2017-06-28] MEDS: AMITRIPTYLINE HCL 75 MG TABLET PO SCH (21:34)
[2017-06-28] MEDS: ISOSORBIDE MONONITRATE 30 MG TAB.ER.24H PO SCH (21:35)
[2017-06-28] MEDS: SIMVASTATIN 10 MG TABLET PO SCH (21:35)
[2017-06-29] MEDS: AMPICILLIN TRIHYD 500 MG CAPSULE PO SCH ×2 (05:07→17:13)
[2017-06-29] MEDS: INSULIN LISPRO 100 UNIT/ML 3 ML VIAL SUBCUT PRN ×4 (07:56→22:26)
[2017-06-29] MEDS ORDERED: NIFEDIPINE 30 MG TAB.ER.24 PO ONE (09:00)
[2017-06-29 09:09] LABS: ANION GAP 9 (5-19); BLOOD UREA NITROGEN 32 mg/dL (7-20); CALCIUM 10.5 mg/dL (8.4-10.2); CARBON DIOXIDE 31 mmol/L (22-30); CHLORIDE 100 mmol/L (98-107); GLUCOSE 245 mg/dL (75-110); MAGNESIUM 1.9 mg/dL (1.6-2.3); POTASSIUM 4.9 mmol/L (3.6-5.0); SODIUM 139.9 mmol/L (137-145)
[2017-06-29] MEDS: ENOXAPARIN SODIUM INJ 30 MG/0.3 ML DISP.SYRIN SUBCUT SCH (09:36)
[2017-06-29] MEDS: INSULIN GLARGINE,HUM.REC.ANLOG 1,000 UNIT/10 ML UNIT SUBCUT SCH ×2 (09:36→22:26)
[2017-06-29] MEDS: FAMOTIDINE 20 MG TABLET PO SCH ×2 (09:38→22:27)
[2017-06-29] MEDS: NORMAL SALINE 10 ML SDV (SCHEDULED) IV SCH ×2 (09:38→22:28)
[2017-06-29] MEDS: METOPROLOL SUCCINATE 50 MG TAB.SR.24H PO SCH ×2 (09:38→22:27)
[2017-06-29] MEDS: VALSARTAN 160 MG TABLET PO SCH (11:57)
[2017-06-29] MEDS ORDERED: BISACODYL 5 MG TABEC PO ONE (12:00)
[2017-06-29] MEDS ORDERED: SORBITOL 70% SOLUTION 30 ML UDC PO ONE (12:00)
[2017-06-29] MEDS ORDERED: INFLUENZA ADLT QUAD (36MOS+) 2017-18 VAC 0.5 ML SYR IM PRN (12:17)
--- NOTE | 2017-06-29 17:16 | PDOC PROGRESS REPORT ---
Subjective Progress Note for:: 06/28/17 Subjective:: Patient states that he does not feel well. Patient has headache and abdominal pain. Reason For Visit: DIABETIC FOOT ULCER Physical Exam Vital Signs: Selected Entries 06/28/17 17:19 Temperature 98.2 F Temperature Oral Source Pulse Rate 59 L Respiratory 18 Rate Blood Pressure 156/72 H Blood Pressure 100 Mean BP Location Left Arm BP Position Sitting O2 Sat by Pulse 99 Oximetry Oxygen Delivery Room Air Method General appearance: PRESENT: no acute distress, well-developed, well-nourished Head exam: PRESENT: atraumatic, normocephalic Eye exam: PRESENT: conjunctiva pink, EOMI, PERRLA. ABSENT: scleral icterus Ear exam: PRESENT: normal external ear exam Mouth exam: PRESENT: moist, tongue midline Neck exam: ABSENT: carotid bruit, JVD, lymphadenopathy, thyromegaly Respiratory exam: PRESENT: clear to auscultation manuel. ABSENT: rales, rhonchi, wheezes Cardiovascular exam: PRESENT: RRR. ABSENT: diastolic murmur, rubs, systolic murmur Pulses: PRESENT: normal dorsalis pedis pul Vascular exam: PRESENT: normal capillary refill GI/Abdominal exam: PRESENT: distended, normal bowel sounds, soft. ABSENT: guarding, mass, organolmegaly, rebound, tenderness Rectal exam: PRESENT: deferred Extremities exam: PRESENT: full ROM. ABSENT: calf tenderness, clubbing, pedal edema Neurological exam: PRESENT: alert, awake, oriented to person, oriented to place , oriented to time, oriented to situation, CN II-XII grossly intact. ABSENT: motor sensory deficit Psychiatric exam: PRESENT: appropriate affect, normal mood. ABSENT: homicidal ideation, suicidal ideation Skin exam: PRESENT: dry, intact, warm, other - right foot wound vac hyperpigmentation of the the skin. ABSENT: cyanosis, rash Results Laboratory Results: 06/21/17 13:59 06/29/17 08:28 06/29/17 08:28 Sodium 139.9 Potassium 4.9 Chloride 100 Carbon Dioxide 31 H Anion Gap 9 BUN 32 H Creatinine 1.58 H Est GFR ( Amer) 55 L Est GFR (Non-Af Amer) 45 L Glucose 245 H Calcium 10.5 H Magnesium 1.9 Impressions: Foot X-Ray 05/01/17 14:36 IMPRESSION: PATIENT WITH PRIOR HEALED 4TH AND 5TH METATARSAL FRACTURES WITH SHAGGY APPEARANCE INVOLVING THE FRACTURE SITES WHICH COULD REPRESENT SEQUELA OF THE PRIOR HEALING OR SUPERIMPOSED OSTEOMYELITIS GIVEN PATIENT'S HISTORY OF ULCERATION. MRI IS FOR FURTHER EVALUATION CLINICALLY INDICATED. Lower Extremity MRI 05/01/17 15:51 IMPRESSION: Ulcer over the base of the 5th metatarsal with bony cortical with erosion and abnormal marrow signal in the proximal 2/3 of the 5th metatarsal compatible with osteomyelitis. Guidance Fluoroscopy 05/05/17 00:00 IMPRESSION: Please see combined report for performance of procedure and radiologic supervision and interpretation. Interventional Vascular Procedure 05/05/17 00:00 IMPRESSION: Please see combined report for performance of procedure and radiologic supervision and interpretation. PICC Line Insertion 05/05/17 00:00 IMPRESSION: SUCCESSFUL PLACEMENT OF A 5 FR dual LUMEN 39 CM PICC IN THE basilic VEIN. Renal Ultrasound 06/23/17 00:00 IMPRESSION: 2 cm potential bladder base mass. Kidneys unremarkable. Assessment & Plan - Diagnosis (1) Diabetic foot infection Is this a current diagnosis for this admission?: Yes Plan: Management per surgery. Patient with wound vac in place. Patient ampicillin for entercoccus faecalis infection. Plan is to keep wound vac for 2 more weeks that's approximately 07/11. (2) Acute renal failure Is this a current diagnosis for this admission?: Yes Plan: Patient with acute on chronic CKD 3 possible due to NSAIDS, infections and or ACEI in the presence of dehydration. This appears to be his baseline. (3) Bladder mass Is this a current diagnosis for this admission?: Yes Plan: Will need follow up as out patient. (4) Chronic kidney disease, stage 3 (moderate) Is this a current diagnosis for this admission?: Yes Plan: Appears to be stable. Likely secondary to diabetes and hypertension. Continue ARB for possible proteinurea. Will monitor renal function to make sure creatinine is not worsening. (5) Enterococcus faecalis infection Is this a current diagnosis for this admission?: Yes Plan: Continue ampicillin. (6) Hyperlipidemia Is this a current diagnosis for this admission?: Yes Plan: Continue simvastatin 20mg QHS. (7) Hypertension Qualifiers: Hypertension type: essential hypertension Qualified Code(s): I10 - Essential (primary) hypertension Is this a current diagnosis for this admission?: Yes Plan: Blood pressure better controlled with that addition and increase of medications however patient is now having nausea and headache which hes was not having before. Will have to adjust his medications. Will decrease imdur. (8) Peripheral neuropathy Qualifiers: Peripheral neuropathy type: polyneuropathy, unspecified Qualified Code(s): G62.9 - Polyneuropathy, unspecified Is this a current diagnosis for this admission?: Yes Plan: Continue gabapentin. - Time Time Spent with patient: Less than 15 minutes Anticipated discharge: Other - Inpatient Certification Medical Necessity: Risk of Complication if Not Cared For in Hospital
--- NOTE | 2017-06-29 17:25 | PDOC PROGRESS REPORT ---
Subjective Progress Note for:: 06/29/17 Subjective:: Patient states that he feels a little better. He is getting his appetite back. Reason For Visit: DIABETIC FOOT ULCER Physical Exam Vital Signs: Temp Pulse Resp BP Pulse Ox 98.2 F 75 20 162/85 H 98 06/29/17 11:41 06/29/17 11:41 06/29/17 11:41 06/29/17 11:41 06/29/17 11:41 Intake & Output 06/28/17 06/29/17 06/30/17 06:59 06:59 06:59 Intake Total 882 540 Balance 882 540 Weight 87 kg General appearance: PRESENT: no acute distress, obese, well-developed, well- nourished Head exam: PRESENT: normocephalic Eye exam: PRESENT: EOMI. ABSENT: scleral icterus Ear exam: PRESENT: normal external ear exam Mouth exam: PRESENT: moist Neck exam: ABSENT: carotid bruit, JVD, lymphadenopathy, thyromegaly Respiratory exam: PRESENT: clear to auscultation manuel. ABSENT: rales, rhonchi, wheezes Cardiovascular exam: PRESENT: RRR. ABSENT: diastolic murmur, rubs, systolic murmur Pulses: PRESENT: normal dorsalis pedis pul Vascular exam: PRESENT: normal capillary refill GI/Abdominal exam: PRESENT: distended, normal bowel sounds, soft. ABSENT: guarding, mass, organolmegaly, rebound, tenderness Rectal exam: PRESENT: deferred Extremities exam: PRESENT: full ROM. ABSENT: calf tenderness, clubbing, pedal edema Neurological exam: PRESENT: alert, awake, oriented to person, oriented to place , oriented to time, oriented to situation, CN II-XII grossly intact. ABSENT: motor sensory deficit Psychiatric exam: PRESENT: appropriate affect, normal mood. ABSENT: homicidal ideation, suicidal ideation Skin exam: PRESENT: dry, intact, warm, other - right toe amputation with wound vac in placement. ABSENT: cyanosis, rash Results Laboratory Results: 06/21/17 13:59 06/29/17 08:28 06/29/17 08:28 Sodium 139.9 Potassium 4.9 Chloride 100 Carbon Dioxide 31 H Anion Gap 9 BUN 32 H Creatinine 1.58 H Est GFR ( Amer) 55 L Est GFR (Non-Af Amer) 45 L Glucose 245 H Calcium 10.5 H Magnesium 1.9 Impressions: Foot X-Ray 05/01/17 14:36 IMPRESSION: PATIENT WITH PRIOR HEALED 4TH AND 5TH METATARSAL FRACTURES WITH SHAGGY APPEARANCE INVOLVING THE FRACTURE SITES WHICH COULD REPRESENT SEQUELA OF THE PRIOR HEALING OR SUPERIMPOSED OSTEOMYELITIS GIVEN PATIENT'S HISTORY OF ULCERATION. MRI IS FOR FURTHER EVALUATION CLINICALLY INDICATED. Lower Extremity MRI 05/01/17 15:51 IMPRESSION: Ulcer over the base of the 5th metatarsal with bony cortical with erosion and abnormal marrow signal in the proximal 2/3 of the 5th metatarsal compatible with osteomyelitis. Guidance Fluoroscopy 05/05/17 00:00 IMPRESSION: Please see combined report for performance of procedure and radiologic supervision and interpretation. Interventional Vascular Procedure 05/05/17 00:00 IMPRESSION: Please see combined report for performance of procedure and radiologic supervision and interpretation. PICC Line Insertion 05/05/17 00:00 IMPRESSION: SUCCESSFUL PLACEMENT OF A 5 FR dual LUMEN 39 CM PICC IN THE basilic VEIN. Renal Ultrasound 06/23/17 00:00 IMPRESSION: 2 cm potential bladder base mass. Kidneys unremarkable. Assessment & Plan - Diagnosis (1) Diabetic foot infection Is this a current diagnosis for this admission?: Yes Plan: Management per surgery. Patient with wound vac in place. Patient ampicillin for entercoccus faecalis infection. Plan is to keep wound vac for 2 more weeks that's approximately 07/11. (2) Acute renal failure Is this a current diagnosis for this admission?: Yes Plan: Patient with acute on chronic CKD 3 possible due to NSAIDS, infections and or ACEI/ARB in the presence of dehydration. Patient creatinine is now stable. (3) Bladder mass Is this a current diagnosis for this admission?: Yes Plan: Need follow up as out patient. (4) Chronic kidney disease, stage 3 (moderate) Is this a current diagnosis for this admission?: Yes Plan: Appears to be stable. Likely secondary to diabetes and hypertension. Continue ARB for possible proteinurea. Renal function is stable on diovan. (5) Enterococcus faecalis infection Is this a current diagnosis for this admission?: Yes Plan: Continue ampicillin. (6) Hyperlipidemia Is this a current diagnosis for this admission?: Yes Plan: Continue simvastatin 20mg QHS. (7) Hypertension Qualifiers: Hypertension type: essential hypertension Qualified Code(s): I10 - Essential (primary) hypertension Is this a current diagnosis for this admission?: Yes Plan: Blood pressure better controlled with that addition and increase of medications however patient is now having nausea and headache which hes was not having before. Symptoms improved. Will start procardia and discontinue norvasc. Will continue imdur at 30mg po daily. Continue metoprolol and diovan at current dose. (8) Peripheral neuropathy Qualifiers: Peripheral neuropathy type: polyneuropathy, unspecified Qualified Code(s): G62.9 - Polyneuropathy, unspecified Is this a current diagnosis for this admission?: Yes Plan: Continue gabapentin. - Time Time Spent with patient: Less than 15 minutes Anticipated discharge: Other - Inpatient Certification Medical Necessity: Risk of Complication if Not Cared For in Hospital
[2017-06-29] MEDS: SIMVASTATIN 10 MG TABLET PO SCH (22:26)
[2017-06-29] MEDS: ISOSORBIDE MONONITRATE 30 MG TAB.ER.24H PO SCH (22:27)
[2017-06-29] MEDS: GABAPENTIN 300 MG CAPSULE PO SCH (22:27)
[2017-06-29] MEDS: NIFEDIPINE 30 MG TAB.ER.24 PO SCH (22:27)
[2017-06-29] MEDS: TRAZODONE HCL 50 MG TABLET PO SCH (22:27)
[2017-06-30] MEDS: AMPICILLIN TRIHYD 500 MG CAPSULE PO SCH ×2 (06:50→17:11)
[2017-06-30] MEDS: INSULIN LISPRO 100 UNIT/ML 3 ML VIAL SUBCUT PRN ×3 (08:37→17:11)
[2017-06-30] MEDS: ENOXAPARIN SODIUM INJ 30 MG/0.3 ML DISP.SYRIN SUBCUT SCH (10:05)
[2017-06-30] MEDS: INSULIN GLARGINE,HUM.REC.ANLOG 1,000 UNIT/10 ML UNIT SUBCUT SCH (10:05)
[2017-06-30] MEDS: POLYETHYLENE GLYCOL 3350 POWDER 17 GM/1 PACKET PO SCH (10:06)
[2017-06-30] MEDS: METOPROLOL SUCCINATE 50 MG TAB.SR.24H PO SCH ×2 (10:06→22:08)
[2017-06-30] MEDS: NIFEDIPINE 30 MG TAB.ER.24 PO SCH ×2 (10:06→22:07)
[2017-06-30] MEDS: FAMOTIDINE 20 MG TABLET PO SCH ×2 (10:06→22:08)
[2017-06-30] MEDS: NORMAL SALINE 10 ML SDV (SCHEDULED) IV SCH ×2 (10:06→22:09)
[2017-06-30] MEDS: VALSARTAN 160 MG TABLET PO SCH (12:19)
--- NOTE | 2017-06-30 20:27 | PDOC PROGRESS REPORT ---
Subjective Progress Note for:: 06/30/17 Subjective:: Patient feels better. Patient thinks he has adjusted to the medication. Patient states he just wants a little assistance. He is not looking for any handouts. He states the pain in his foot is better. Reason For Visit: DIABETIC FOOT ULCER Physical Exam Vital Signs: Temp Pulse Resp BP Pulse Ox 98.6 F 74 20 142/70 H 100 06/30/17 16:00 06/30/17 16:00 06/30/17 16:00 06/30/17 16:00 06/30/17 16:00 Intake & Output 06/29/17 06/30/17 07/01/17 06:59 06:59 06:59 Intake Total 540 2270 784 Balance 540 2270 784 General appearance: PRESENT: no acute distress, well-developed, well-nourished Head exam: PRESENT: atraumatic, normocephalic Eye exam: PRESENT: conjunctiva pink, EOMI, PERRLA. ABSENT: scleral icterus Ear exam: PRESENT: normal external ear exam Mouth exam: PRESENT: moist, tongue midline Neck exam: ABSENT: carotid bruit, JVD, lymphadenopathy, thyromegaly Respiratory exam: PRESENT: clear to auscultation manuel. ABSENT: rales, rhonchi, wheezes Cardiovascular exam: PRESENT: RRR. ABSENT: diastolic murmur, rubs, systolic murmur Pulses: PRESENT: normal dorsalis pedis pul Vascular exam: PRESENT: normal capillary refill GI/Abdominal exam: PRESENT: normal bowel sounds, soft. ABSENT: distended, guarding, mass, organolmegaly, rebound, tenderness Rectal exam: PRESENT: deferred Extremities exam: PRESENT: full ROM. ABSENT: calf tenderness, clubbing, pedal edema Musculoskeletal exam: PRESENT: tenderness - right pinkey toe amputation. Wound appears clean. Wound vac to be put back in place Neurological exam: PRESENT: alert, awake, oriented to person, oriented to place , oriented to time, oriented to situation, CN II-XII grossly intact. ABSENT: motor sensory deficit Psychiatric exam: PRESENT: appropriate affect, normal mood. ABSENT: homicidal ideation, suicidal ideation Skin exam: PRESENT: dry, intact, warm. ABSENT: cyanosis, rash Results Laboratory Results: 06/21/17 13:59 06/29/17 08:28 Impressions: Foot X-Ray 05/01/17 14:36 IMPRESSION: PATIENT WITH PRIOR HEALED 4TH AND 5TH METATARSAL FRACTURES WITH SHAGGY APPEARANCE INVOLVING THE FRACTURE SITES WHICH COULD REPRESENT SEQUELA OF THE PRIOR HEALING OR SUPERIMPOSED OSTEOMYELITIS GIVEN PATIENT'S HISTORY OF ULCERATION. MRI IS FOR FURTHER EVALUATION CLINICALLY INDICATED. Lower Extremity MRI 05/01/17 15:51 IMPRESSION: Ulcer over the base of the 5th metatarsal with bony cortical with erosion and abnormal marrow signal in the proximal 2/3 of the 5th metatarsal compatible with osteomyelitis. Guidance Fluoroscopy 05/05/17 00:00 IMPRESSION: Please see combined report for performance of procedure and radiologic supervision and interpretation. Interventional Vascular Procedure 05/05/17 00:00 IMPRESSION: Please see combined report for performance of procedure and radiologic supervision and interpretation. PICC Line Insertion 05/05/17 00:00 IMPRESSION: SUCCESSFUL PLACEMENT OF A 5 FR dual LUMEN 39 CM PICC IN THE basilic VEIN. Renal Ultrasound 06/23/17 00:00 IMPRESSION: 2 cm potential bladder base mass. Kidneys unremarkable. Assessment & Plan - Diagnosis (1) Diabetic foot infection Is this a current diagnosis for this admission?: Yes Plan: Management per surgery. Patient with wound vac in place. Patient ampicillin for entercoccus faecalis infection. Plan is to keep wound vac for 2 more weeks that's approximately 07/11. (2) Acute renal failure Is this a current diagnosis for this admission?: Yes Plan: Patient with acute on chronic CKD 3 possible due to NSAIDS, infections and or ACEI/ARB in the presence of dehydration. Patient creatinine is now stable. (3) Bladder mass Is this a current diagnosis for this admission?: Yes Plan: Need follow up as out patient. (4) Chronic kidney disease, stage 3 (moderate) Is this a current diagnosis for this admission?: Yes Plan: Appears to be stable. Likely secondary to diabetes and hypertension. Continue ARB for possible proteinurea. Renal function is stable on diovan. (5) Enterococcus faecalis infection Is this a current diagnosis for this admission?: Yes Plan: Continue ampicillin. (6) Hyperlipidemia Is this a current diagnosis for this admission?: Yes Plan: Continue simvastatin 20mg QHS. (7) Hypertension Qualifiers: Hypertension type: essential hypertension Qualified Code(s): I10 - Essential (primary) hypertension Is this a current diagnosis for this admission?: Yes Plan: Blood pressure better controlled with that addition and increase of medications however patient is now having nausea and headache which hes was not having before. Symptoms improved. Continue procardia and discontinue norvasc. Will continue imdur at 30mg po daily. Continue metoprolol and diovan at current dose. (8) Peripheral neuropathy Qualifiers: Peripheral neuropathy type: polyneuropathy, unspecified Qualified Code(s): G62.9 - Polyneuropathy, unspecified Is this a current diagnosis for this admission?: Yes Plan: Continue gabapentin. (9) Uncontrolled type 2 diabetes mellitus Qualifiers: Diabetes mellitus complication status: with hyperglycemia Diabetes mellitus auto striper insulin use: with auto striper use Qualified Code(s): E11.65 - Type 2 diabetes mellitus with hyperglycemia; Z79.4 - alf (current) use of insulin; Z79.4 - alf (current) use of insulin; Z79.4 - alf ( current) use of insulin; Z79.4 - alf (current) use of insulin Is this a current diagnosis for this admission?: Yes Plan: Will continue adjust insulin until blood glucose is better controlled. Patient now on lantus 40Units Q12 with SSI. - Time Time Spent with patient: Less than 15 minutes Anticipated discharge: Other - Inpatient Certification Medical Necessity: Risk of Complication if Not Cared For in Hospital - Patient currently homeless and still requires care for his wound. Attempting to find placement., Other - Pa
[2017-06-30] MEDS ORDERED: INSULIN GLARGINE,HUM.REC.ANLOG 1,000 UNIT/10 ML UNIT SUBCUT SCH (22:00)
[2017-06-30] MEDS: ISOSORBIDE MONONITRATE 30 MG TAB.ER.24H PO SCH (22:07)
[2017-06-30] MEDS: OXYCODONE HCL IR 5 MG TABLET PO PRN (22:07)
[2017-06-30] MEDS: GABAPENTIN 300 MG CAPSULE PO SCH (22:08)
[2017-06-30] MEDS: TRAZODONE HCL 50 MG TABLET PO SCH (22:08)
[2017-06-30] MEDS: SIMVASTATIN 10 MG TABLET PO SCH (22:08)
[2017-07-01 04:57] LABS: ABSOLUTE EOSINOPHILS # (AUTO) 0.2 10^3/uL (0.0-0.6); ABSOLUTE LYMPHOCYTES (AUTO) 2.2 10^3/uL (0.5-4.7); ABSOLUTE MONOCYTES (AUTO) 0.6 10^3/uL (0.1-1.4); ABSOLUTE NEUT (AUTO) 3.3 10^3/uL (1.7-8.2); BASOPHILS % (AUTO) 0.6 % (0-2); EOSINOPHILS % (AUTO) 3.5 % (0-6); HEMATOCRIT 36.8 % (37.9-51.0); HEMOGLOBIN 12.3 g/dL (13.5-17.0); LYMPHOCYTES % (AUTO) 34.3 % (13-45); MEAN CORPUSCULAR HEMOGLOBIN 28.6 pg (27.0-33.4); MEAN CORPUSCULAR HGB CONC 33.3 g/dL (32.0-36.0); MEAN CORPUSCULAR VOLUME 86 fl (80-97); PLATELET COUNT 263 10^3/uL (150-450); RED BLOOD COUNT 4.29 10^6/uL (4.35-5.55); SEGMENTED NEUTROPHILS % (AUTO) 52.6 % (42-78); TOTAL CELLS COUNTED % (AUTO) 100 %; WHITE BLOOD COUNT 6.4 10^3/uL (4.0-10.5)
[2017-07-01] MEDS: AMPICILLIN TRIHYD 500 MG CAPSULE PO SCH ×2 (06:51→17:06)
[2017-07-01] MEDS: ENOXAPARIN SODIUM INJ 30 MG/0.3 ML DISP.SYRIN SUBCUT SCH (10:02)
[2017-07-01] MEDS: NIFEDIPINE 30 MG TAB.ER.24 PO SCH ×2 (10:03→22:56)
[2017-07-01] MEDS: FAMOTIDINE 20 MG TABLET PO SCH ×2 (10:03→22:49)
[2017-07-01] MEDS: METOPROLOL SUCCINATE 50 MG TAB.SR.24H PO SCH ×2 (10:03→22:53)
[2017-07-01] MEDS: OXYCODONE HCL IR 5 MG TABLET PO PRN ×2 (10:04→22:56)
[2017-07-01] MEDS: POLYETHYLENE GLYCOL 3350 POWDER 17 GM/1 PACKET PO SCH (10:05)
[2017-07-01] MEDS: NORMAL SALINE 10 ML SDV (SCHEDULED) IV SCH ×2 (10:05→22:59)
[2017-07-01] MEDS ORDERED: INSULIN GLARGINE,HUM.REC.ANLOG 1,000 UNIT/10 ML UNIT SUBCUT ONE (11:00)
[2017-07-01] MEDS ORDERED: INSULIN GLARGINE,HUM.REC.ANLOG 300 UNIT/3 ML INSULN.PEN SUBCUT ONE ×2 (11:00→23:45)
[2017-07-01] MEDS: VALSARTAN 160 MG TABLET PO SCH (12:50)
[2017-07-01] MEDS ORDERED: INSULIN GLARGINE,HUM.REC.ANLOG 300 UNIT/3 ML INSULN.PEN SUBCUT SCH (22:00)
[2017-07-01] MEDS: GABAPENTIN 300 MG CAPSULE PO SCH (22:53)
[2017-07-01] MEDS: ISOSORBIDE MONONITRATE 30 MG TAB.ER.24H PO SCH (22:53)
[2017-07-01] MEDS: TRAZODONE HCL 50 MG TABLET PO SCH (22:56)
[2017-07-01] MEDS: SIMVASTATIN 10 MG TABLET PO SCH (22:56)
[2017-07-02] MEDS: AMPICILLIN TRIHYD 500 MG CAPSULE PO SCH ×2 (06:07→17:29)
--- NOTE | 2017-07-02 08:28 | PDOC PROGRESS REPORT ---
Subjective Progress Note for:: 07/01/17 Subjective:: Patient feels better. Patient is worried about where his will go after he is discharged from here. Patient concerned about how he will get his medications. Patient otherwise feeling okay. Reason For Visit: DIABETIC FOOT ULCER Physical Exam Vital Signs: Temp Pulse Resp BP Pulse Ox 97.7 F 61 16 157/76 H 99 07/01/17 19:25 07/01/17 19:25 07/01/17 19:25 07/01/17 19:25 07/01/17 19:25 Intake & Output 06/30/17 07/01/17 07/02/17 06:59 06:59 06:59 Intake Total 2270 1828 200 Balance 2270 1828 200 Weight 84.3 kg General appearance: PRESENT: no acute distress, obese, well-developed Head exam: PRESENT: normocephalic Eye exam: ABSENT: scleral icterus Mouth exam: PRESENT: moist Neck exam: ABSENT: carotid bruit, JVD, lymphadenopathy, thyromegaly Respiratory exam: PRESENT: clear to auscultation manuel. ABSENT: rales, rhonchi, wheezes Cardiovascular exam: PRESENT: RRR. ABSENT: diastolic murmur, rubs, systolic murmur GI/Abdominal exam: PRESENT: normal bowel sounds, soft. ABSENT: distended, guarding, mass, organolmegaly, rebound, tenderness Rectal exam: PRESENT: deferred Extremities exam: PRESENT: full ROM. ABSENT: calf tenderness, clubbing, pedal edema Musculoskeletal exam: PRESENT: other - right foot wound vac. Decreased swelling of the foot. Neurological exam: PRESENT: alert, awake, oriented to person, oriented to place , oriented to time, oriented to situation, CN II-XII grossly intact. ABSENT: motor sensory deficit Psychiatric exam: PRESENT: appropriate affect, normal mood. ABSENT: homicidal ideation, suicidal ideation Skin exam: PRESENT: dry, intact, warm. ABSENT: cyanosis, rash Results Laboratory Results: 07/01/17 04:03 06/29/17 08:28 07/01/17 04:03 WBC 6.4 RBC 4.29 L Hgb 12.3 L Hct 36.8 L MCV 86 MCH 28.6 MCHC 33.3 RDW 14.0 Plt Count 263 Seg Neutrophils % 52.6 Lymphocytes % 34.3 Monocytes % 9.0 Eosinophils % 3.5 Basophils % 0.6 Absolute Neutrophils 3.3 Absolute Lymphocytes 2.2 Absolute Monocytes 0.6 Absolute Eosinophils 0.2 Absolute Basophils 0.0 Impressions: Foot X-Ray 05/01/17 14:36 IMPRESSION: PATIENT WITH PRIOR HEALED 4TH AND 5TH METATARSAL FRACTURES WITH SHAGGY APPEARANCE INVOLVING THE FRACTURE SITES WHICH COULD REPRESENT SEQUELA OF THE PRIOR HEALING OR SUPERIMPOSED OSTEOMYELITIS GIVEN PATIENT'S HISTORY OF ULCERATION. MRI IS FOR FURTHER EVALUATION CLINICALLY INDICATED. Lower Extremity MRI 05/01/17 15:51 IMPRESSION: Ulcer over the base of the 5th metatarsal with bony cortical with erosion and abnormal marrow signal in the proximal 2/3 of the 5th metatarsal compatible with osteomyelitis. Guidance Fluoroscopy 05/05/17 00:00 IMPRESSION: Please see combined report for performance of procedure and radiologic supervision and interpretation. Interventional Vascular Procedure 05/05/17 00:00 IMPRESSION: Please see combined report for performance of procedure and radiologic supervision and interpretation. PICC Line Insertion 05/05/17 00:00 IMPRESSION: SUCCESSFUL PLACEMENT OF A 5 FR dual LUMEN 39 CM PICC IN THE basilic VEIN. Renal Ultrasound 06/23/17 00:00 IMPRESSION: 2 cm potential bladder base mass. Kidneys unremarkable. Assessment & Plan - Diagnosis (1) Diabetic foot infection Is this a current diagnosis for this admission?: Yes Plan: Management per surgery. Patient with wound vac in place. Patient ampicillin for entercoccus faecalis infection. Plan is to keep wound vac for 2 more weeks that's approximately 07/11. (2) Acute renal failure Is this a current diagnosis for this admission?: Yes Plan: Patient with acute on chronic CKD 3 possible due to NSAIDS, infections and or ACEI/ARB in the presence of dehydration. Patient creatinine stable. (3) Bladder mass Is this a current diagnosis for this admission?: Yes Plan: Need follow up as out patient. (4) Chronic kidney disease, stage 3 (moderate) Is this a current diagnosis for this admission?: Yes Plan: Appears to be stable. Likely secondary to diabetes and hypertension. Continue ARB for possible proteinurea. Renal function is stable on diovan. (5) Enterococcus faecalis infection Is this a current diagnosis for this admission?: Yes Plan: Continue ampicillin. (6) Hyperlipidemia Is this a current diagnosis for this admission?: Yes Plan: Continue simvastatin 20mg QHS. (7) Hypertension Qualifiers: Hypertension type: essential hypertension Qualified Code(s): I10 - Essential (primary) hypertension Is this a current diagnosis for this admission?: Yes Plan: Blood pressure better controlled with that addition and increase of medications however patient is now having nausea and headache which hes was not having before. Symptoms improved. Continue current medications. (8) Peripheral neuropathy Qualifiers: Peripheral neuropathy type: polyneuropathy, unspecified Qualified Code(s): G62.9 - Polyneuropathy, unspecified Is this a current diagnosis for this admission?: Yes Plan: Continue gabapentin. (9) Uncontrolled type 2 diabetes mellitus Qualifiers: Diabetes mellitus complication status: with hyperglycemia Diabetes mellitus mcfp insulin use: with mcfp use Qualified Code(s): E11.65 - Type 2 diabetes mellitus with hyperglycemia; Z79.4 - detention (current) use of insulin; Z79.4 - detention (current) use of insulin; Z79.4 - meat smoker ( current) use of insulin; Z79.4 - detention (current) use of insulin Is this a current diagnosis for this admission?: Yes Plan: Blood glucose better controlled on current regimen. Will continue to follow and adjust accordingly. Would like blood glucoses below 200. - Time Time Spent with patient: Less than 15 minutes Anticipated discharge: Home Within: Other - Inpatient Certification Medical Necessity: Risk of Complication if Not Cared For in Hospital - Patient homeless and requires wound care to the right foot. Patient currently has wound vac.
[2017-07-02] MEDS: ENOXAPARIN SODIUM INJ 30 MG/0.3 ML DISP.SYRIN SUBCUT SCH (09:05)
[2017-07-02] MEDS: FAMOTIDINE 20 MG TABLET PO SCH ×2 (09:06→22:29)
[2017-07-02] MEDS: METOPROLOL SUCCINATE 50 MG TAB.SR.24H PO SCH ×2 (09:06→22:29)
[2017-07-02] MEDS: NIFEDIPINE 30 MG TAB.ER.24 PO SCH ×2 (09:06→22:29)
[2017-07-02] MEDS: NORMAL SALINE 10 ML SDV (SCHEDULED) IV SCH ×2 (09:08→22:45)
[2017-07-02] MEDS: POLYETHYLENE GLYCOL 3350 POWDER 17 GM/1 PACKET PO SCH (09:08)
[2017-07-02] MEDS ORDERED: INSULIN GLARGINE,HUM.REC.ANLOG 1,000 UNIT/10 ML UNIT SUBCUT SCH (10:00)
[2017-07-02] MEDS ORDERED: INSULIN GLARGINE,HUM.REC.ANLOG 300 UNIT/3 ML INSULN.PEN SUBCUT SCH ×2 (10:00)
[2017-07-02] MEDS ORDERED: INSULIN GLARGINE,HUM.REC.ANLOG 1,000 UNIT/10 ML UNIT SUBCUT ONE (12:20)
[2017-07-02] MEDS: VALSARTAN 160 MG TABLET PO SCH (12:53)
[2017-07-02] MEDS: OXYCODONE HCL IR 5 MG TABLET PO PRN ×2 (16:10→22:27)
--- NOTE | 2017-07-02 22:21 | PDOC PROGRESS REPORT ---
Subjective Progress Note for:: 07/02/17 Subjective:: Patient feels better. Patient states he is tired. He does not want his vitals checked between 11pm and 5am. When he is woken up, he cannot fall back asleep. Patient blood glucose was in the 80s this morning. He stated that he felt badly. Reason For Visit: DIABETIC FOOT ULCER Physical Exam Vital Signs: Temp Pulse Resp BP Pulse Ox 98.0 F 68 18 156/74 H 98 07/02/17 20:15 07/02/17 20:15 07/02/17 20:15 07/02/17 20:15 07/02/17 20:15 Intake & Output 07/01/17 07/02/17 07/03/17 06:59 06:59 06:59 Intake Total 1828 1144 Balance 1828 1144 Weight 84.3 kg 82.4 kg General appearance: PRESENT: no acute distress, obese Head exam: PRESENT: normocephalic Eye exam: PRESENT: EOMI. ABSENT: scleral icterus Ear exam: PRESENT: normal external ear exam Mouth exam: PRESENT: moist Teeth exam: PRESENT: poor dentation Neck exam: ABSENT: carotid bruit, JVD, lymphadenopathy, thyromegaly Respiratory exam: PRESENT: clear to auscultation manuel. ABSENT: rales, rhonchi, wheezes Cardiovascular exam: PRESENT: RRR. ABSENT: diastolic murmur, rubs, systolic murmur GI/Abdominal exam: PRESENT: distended, firm, normal bowel sounds. ABSENT: guarding, mass, organolmegaly, rebound, tenderness Rectal exam: PRESENT: deferred Extremities exam: PRESENT: full ROM. ABSENT: calf tenderness, clubbing, pedal edema Musculoskeletal exam: PRESENT: other - right foot wound vac. Neurological exam: PRESENT: alert, awake, oriented to person, oriented to place , oriented to time, oriented to situation, CN II-XII grossly intact. ABSENT: motor sensory deficit Psychiatric exam: PRESENT: appropriate affect, normal mood. ABSENT: homicidal ideation, suicidal ideation Skin exam: PRESENT: dry, intact, warm. ABSENT: cyanosis, rash Results Laboratory Results: 07/01/17 04:03 06/29/17 08:28 Impressions: Foot X-Ray 05/01/17 14:36 IMPRESSION: PATIENT WITH PRIOR HEALED 4TH AND 5TH METATARSAL FRACTURES WITH SHAGGY APPEARANCE INVOLVING THE FRACTURE SITES WHICH COULD REPRESENT SEQUELA OF THE PRIOR HEALING OR SUPERIMPOSED OSTEOMYELITIS GIVEN PATIENT'S HISTORY OF ULCERATION. MRI IS FOR FURTHER EVALUATION CLINICALLY INDICATED. Lower Extremity MRI 05/01/17 15:51 IMPRESSION: Ulcer over the base of the 5th metatarsal with bony cortical with erosion and abnormal marrow signal in the proximal 2/3 of the 5th metatarsal compatible with osteomyelitis. Guidance Fluoroscopy 05/05/17 00:00 IMPRESSION: Please see combined report for performance of procedure and radiologic supervision and interpretation. Interventional Vascular Procedure 05/05/17 00:00 IMPRESSION: Please see combined report for performance of procedure and radiologic supervision and interpretation. PICC Line Insertion 05/05/17 00:00 IMPRESSION: SUCCESSFUL PLACEMENT OF A 5 FR dual LUMEN 39 CM PICC IN THE basilic VEIN. Renal Ultrasound 06/23/17 00:00 IMPRESSION: 2 cm potential bladder base mass. Kidneys unremarkable. Assessment & Plan - Diagnosis (1) Diabetic foot infection Is this a current diagnosis for this admission?: Yes Plan: Management per surgery. Patient with wound vac in place. Patient ampicillin for entercoccus faecalis infection. Will complete 14 days of treatment. Plan is to keep wound vac for 2 more weeks that's approximately 07/11. (2) Acute renal failure Is this a current diagnosis for this admission?: Yes Plan: Patient with acute on chronic CKD 3 possible due to NSAIDS, infections and or ACEI/ARB in the presence of dehydration. Patient creatinine stable. (3) Bladder mass Is this a current diagnosis for this admission?: Yes Plan: Will consult urology. (4) Chronic kidney disease, stage 3 (moderate) Is this a current diagnosis for this admission?: Yes Plan: Appears to be stable. Likely secondary to diabetes and hypertension. Continue ARB for possible proteinurea. Renal function is stable on diovan. (5) Enterococcus faecalis infection Is this a current diagnosis for this admission?: Yes Plan: Continue ampicillin to complete 14 days of treatment. Stop date 07/08. (6) Hyperlipidemia Is this a current diagnosis for this admission?: Yes Plan: Continue simvastatin 20mg QHS. (7) Hypertension Qualifiers: Hypertension type: essential hypertension Qualified Code(s): I10 - Essential (primary) hypertension Is this a current diagnosis for this admission?: Yes Plan: Better controlled. Continue current medications. (8) Peripheral neuropathy Qualifiers: Peripheral neuropathy type: polyneuropathy, unspecified Qualified Code(s): G62.9 - Polyneuropathy, unspecified Is this a current diagnosis for this admission?: Yes Plan: Continue gabapentin. 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 Will continue to follow and adjust accordingly. Patient blood glucose 80 this morning. Patient states he did not feel well. Will decrease lantus to 35 units bid. Will check A1c. Last A1c for >13. - Time Time Spent with patient: Less than 15 minutes Anticipated discharge: Home Within: Other - Inpatient Certification Medical Necessity: Need for IV Antibiotics, Risk of Complication if Not Cared For in Hospital
[2017-07-02] MEDS: GABAPENTIN 300 MG CAPSULE PO SCH (22:28)
[2017-07-02] MEDS: INSULIN GLARGINE,HUM.REC.ANLOG 1,000 UNIT/10 ML UNIT SUBCUT SCH (22:29)
[2017-07-02] MEDS: TRAZODONE HCL 50 MG TABLET PO SCH (22:29)
[2017-07-02] MEDS: SIMVASTATIN 10 MG TABLET PO SCH (22:29)
[2017-07-02] MEDS: ISOSORBIDE MONONITRATE 30 MG TAB.ER.24H PO SCH (22:33)
[2017-07-03] MEDS: AMPICILLIN TRIHYD 500 MG CAPSULE PO SCH ×2 (06:49→17:58)
[2017-07-03] MEDS: FAMOTIDINE 20 MG TABLET PO SCH ×2 (09:56→21:54)
[2017-07-03] MEDS: METOPROLOL SUCCINATE 50 MG TAB.SR.24H PO SCH ×2 (09:57→21:53)
[2017-07-03] MEDS: NIFEDIPINE 30 MG TAB.ER.24 PO SCH ×2 (09:57→21:54)
[2017-07-03] MEDS: OXYCODONE HCL IR 5 MG TABLET PO PRN (09:58)
[2017-07-03] MEDS: ENOXAPARIN SODIUM INJ 30 MG/0.3 ML DISP.SYRIN SUBCUT SCH (10:00)
[2017-07-03] MEDS: INSULIN GLARGINE,HUM.REC.ANLOG 1,000 UNIT/10 ML UNIT SUBCUT SCH ×2 (10:02→21:53)
[2017-07-03] MEDS: POLYETHYLENE GLYCOL 3350 POWDER 17 GM/1 PACKET PO SCH (10:11)
[2017-07-03] MEDS: NORMAL SALINE 10 ML SDV (SCHEDULED) IV SCH ×2 (10:11→21:55)
[2017-07-03] MEDS: VALSARTAN 160 MG TABLET PO SCH (12:45)
--- NOTE | 2017-07-03 12:56 | PDOC CONSULTATION ---
History of Present Illness Admission Date/PCP: 05/01/17 16:30 This patient is a 56-year-old male who was admitted for a diabetic foot ulcer. During this hospitalization a renal ultrasound was obtained and the bladder was imaged as well. There appears to be an exophytic papillary type lesion arising from the bladder for on several of the images. The patient does admit to gross hematuria in the past and he underwent a workup at that time. Nothing was identified. Past Medical History Cardiac Medical History: Reports: Hyperlipidema, Hypertension Pulmonary Medical History: Reports: None EENT Medical History: Reports: None Neurological Medical History: Reports: None Endocrine Medical History: Reports: Diabetes Mellitus Type 1, Diabetes Mellitus Type 2 Malignancy Medical History: Reports: None GI Medical History: Reports: None Psychiatric Medical History: Reports: Depression Traumatic Medical History: Reports: None Hematology: Reports: None Infectious Medical History: Reports: None Past Surgical History Past Surgical History: Reports: Other - Umbilical hernia repair Social History Lives with: Homeless Smoking Status: Current Every Day Smoker Number of Years Smokin Frequency of Alcohol Use: None Hx Recreational Drug Use: No Drugs: None Hx Prescription Drug Abuse: No - Advance Directive Resuscitation Status: Full Code Family History Family History: Reviewed & Not Pertinent Parental Family History Reviewed: No Children Family History Reviewed: No Sibling(s) Family History Reviewed.: No Medication/Allergy Home Medications: No Home Medications 05/01/17 Allergies/Adverse Reactions: insulin regular [From Novolin 70/30] Allergy (Unknown, Verified 06/01/17 13:03) insulin isophane (NPH) [From Novolin 70/30] Allergy (Verified 06/01/17 13:02) metformin Allergy (Verified 05/01/17 13:30) Physical Exam Vital Signs: Temp Pulse Resp BP Pulse Ox 98.2 F 64 16 147/56 H 99 07/03/17 11:08 07/03/17 11:08 07/03/17 11:08 07/03/17 11:08 07/03/17 11:08 Intake & Output 07/02/17 07/03/17 07/04/17 06:59 06:59 06:59 Intake Total 1144 944 Balance 1144 944 Weight 82.4 kg 83.5 kg Results Laboratory Results: 07/01/17 04:03 06/29/17 08:28 Impressions: Foot X-Ray 05/01/17 14:36 IMPRESSION: PATIENT WITH PRIOR HEALED 4TH AND 5TH METATARSAL FRACTURES WITH SHAGGY APPEARANCE INVOLVING THE FRACTURE SITES WHICH COULD REPRESENT SEQUELA OF THE PRIOR HEALING OR SUPERIMPOSED OSTEOMYELITIS GIVEN PATIENT'S HISTORY OF ULCERATION. MRI IS FOR FURTHER EVALUATION CLINICALLY INDICATED. Lower Extremity MRI 05/01/17 15:51 IMPRESSION: Ulcer over the base of the 5th metatarsal with bony cortical with erosion and abnormal marrow signal in the proximal 2/3 of the 5th metatarsal compatible with osteomyelitis. Guidance Fluoroscopy 05/05/17 00:00 IMPRESSION: Please see combined report for performance of procedure and radiologic supervision and interpretation. Interventional Vascular Procedure 05/05/17 00:00 IMPRESSION: Please see combined report for performance of procedure and radiologic supervision and interpretation. PICC Line Insertion 05/05/17 00:00 IMPRESSION: SUCCESSFUL PLACEMENT OF A 5 FR dual LUMEN 39 CM PICC IN THE basilic VEIN. Renal Ultrasound 06/23/17 00:00 IMPRESSION: 2 cm potential bladder base mass. Kidneys unremarkable. Assessment & Plan - Diagnosis (1) Bladder mass Is this a current diagnosis for this admission?: Yes Plan: #1. Send urine for cytology during this admission 2. Schedule outpatient cystoscopy in the urology office with either me or another urologist with an earlier appointment date
[2017-07-03] MEDS: GABAPENTIN 300 MG CAPSULE PO SCH (21:53)
[2017-07-03] MEDS: TRAZODONE HCL 50 MG TABLET PO SCH (21:53)
[2017-07-03] MEDS: SIMVASTATIN 10 MG TABLET PO SCH (21:54)
[2017-07-03] MEDS: ISOSORBIDE MONONITRATE 30 MG TAB.ER.24H PO SCH (21:54)
[2017-07-04] MEDS: AMPICILLIN TRIHYD 500 MG CAPSULE PO SCH ×2 (06:50→17:07)
[2017-07-04] MEDS: METOPROLOL SUCCINATE 50 MG TAB.SR.24H PO SCH ×2 (09:27→23:26)
[2017-07-04] MEDS: NIFEDIPINE 30 MG TAB.ER.24 PO SCH ×2 (09:27→23:26)
[2017-07-04] MEDS: FAMOTIDINE 20 MG TABLET PO SCH ×2 (09:28→23:26)
[2017-07-04] MEDS: ENOXAPARIN SODIUM INJ 30 MG/0.3 ML DISP.SYRIN SUBCUT SCH (09:29)
[2017-07-04] MEDS: INSULIN GLARGINE,HUM.REC.ANLOG 1,000 UNIT/10 ML UNIT SUBCUT SCH ×2 (09:30→23:27)
[2017-07-04] MEDS: POLYETHYLENE GLYCOL 3350 POWDER 17 GM/1 PACKET PO SCH (09:30)
[2017-07-04] MEDS: NORMAL SALINE 10 ML SDV (SCHEDULED) IV SCH ×2 (09:30→23:14)
[2017-07-04] MEDS: OXYCODONE HCL IR 5 MG TABLET PO PRN (09:42)
[2017-07-04] MEDS: VALSARTAN 160 MG TABLET PO SCH (13:44)
[2017-07-04] MEDS ORDERED: BISACODYL 5 MG TABEC PO ONE (15:00)
[2017-07-04] MEDS ORDERED: GLUCAGON,HUMAN RECOMB 1 MG INJ IM PRN (17:08)
[2017-07-04] MEDS ORDERED: DEXTROSE 40% GEL 15 GM TUBE PO PRN ×2 (17:08)
[2017-07-04] MEDS ORDERED: DEXTROSE 50%-WATER 25 GM/50 ML DISP.SYRIN IV PRN ×2 (17:08)
[2017-07-04] MEDS: INSULIN LISPRO 100 UNIT/ML 3 ML VIAL SUBCUT PRN ×2 (17:39→23:27)
--- NOTE | 2017-07-04 18:45 | PDOC PROGRESS REPORT ---
Subjective Progress Note for:: 07/03/17 Subjective:: Patient feels better. Patient states he is tired. He does not want his vitals checked between 11pm and 5am. When he is woken up, he cannot fall back asleep. Is feeling better today. Patient states that he was able to rest last night as he requested that he not be interrupted Between certain times. Reason For Visit: DIABETIC FOOT ULCER Physical Exam Vital Signs: Temp Pulse Resp BP Pulse Ox 97.8 F 62 16 148/60 H 99 07/03/17 16:22 07/03/17 16:22 07/03/17 16:22 07/03/17 16:22 07/03/17 16:22 Intake & Output 07/02/17 07/03/17 07/04/17 06:59 06:59 06:59 Intake Total 1144 944 360 Output Total 225 Balance 1144 944 135 Weight 82.4 kg 83.5 kg General appearance: PRESENT: no acute distress, obese, well-developed, well- nourished Head exam: PRESENT: normocephalic Eye exam: PRESENT: EOMI. ABSENT: scleral icterus Mouth exam: PRESENT: moist Neck exam: ABSENT: carotid bruit, JVD, lymphadenopathy, thyromegaly Respiratory exam: PRESENT: clear to auscultation manuel. ABSENT: rales, rhonchi, wheezes Cardiovascular exam: PRESENT: RRR. ABSENT: diastolic murmur, rubs, systolic murmur GI/Abdominal exam: PRESENT: normal bowel sounds, soft. ABSENT: distended, guarding, mass, organolmegaly, rebound, tenderness Rectal exam: PRESENT: deferred Extremities exam: PRESENT: full ROM. ABSENT: calf tenderness, clubbing, pedal edema Musculoskeletal exam: PRESENT: other - Right foot wound VAC in place Neurological exam: PRESENT: alert, awake, oriented to person, oriented to place , oriented to time, oriented to situation, CN II-XII grossly intact. ABSENT: motor sensory deficit Psychiatric exam: PRESENT: appropriate affect, normal mood. ABSENT: homicidal ideation, suicidal ideation Skin exam: PRESENT: dry, intact, warm. ABSENT: cyanosis, rash Results Laboratory Results: 07/01/17 04:03 06/29/17 08:28 Impressions: Foot X-Ray 05/01/17 14:36 IMPRESSION: PATIENT WITH PRIOR HEALED 4TH AND 5TH METATARSAL FRACTURES WITH SHAGGY APPEARANCE INVOLVING THE FRACTURE SITES WHICH COULD REPRESENT SEQUELA OF THE PRIOR HEALING OR SUPERIMPOSED OSTEOMYELITIS GIVEN PATIENT'S HISTORY OF ULCERATION. MRI IS FOR FURTHER EVALUATION CLINICALLY INDICATED. Lower Extremity MRI 05/01/17 15:51 IMPRESSION: Ulcer over the base of the 5th metatarsal with bony cortical with erosion and abnormal marrow signal in the proximal 2/3 of the 5th metatarsal compatible with osteomyelitis. Guidance Fluoroscopy 05/05/17 00:00 IMPRESSION: Please see combined report for performance of procedure and radiologic supervision and interpretation. Interventional Vascular Procedure 05/05/17 00:00 IMPRESSION: Please see combined report for performance of procedure and radiologic supervision and interpretation. PICC Line Insertion 05/05/17 00:00 IMPRESSION: SUCCESSFUL PLACEMENT OF A 5 FR dual LUMEN 39 CM PICC IN THE basilic VEIN. Renal Ultrasound 06/23/17 00:00 IMPRESSION: 2 cm potential bladder base mass. Kidneys unremarkable. Assessment & Plan - Diagnosis (1) Diabetic foot infection Is this a current diagnosis for this admission?: Yes Plan: Management per surgery. Patient with wound vac in place. Patient ampicillin for entercoccus faecalis infection. Will complete 14 days of treatment. Patient is currently on day 13 of 14. Plan is to keep wound vac for 2 more weeks that's approximately 07/11. (2) Acute renal failure Is this a current diagnosis for this admission?: Yes Plan: Patient with acute on chronic CKD 3 possible due to NSAIDS, infections and or ACEI/ARB in the presence of dehydration. Patient creatinine stable. (3) Bladder mass Is this a current diagnosis for this admission?: Yes Plan: Allergies send urine for cytology. Dr. Alvarado would recommend that patient follow-up as outpatient with urology for further evaluation. (4) Chronic kidney disease, stage 3 (moderate) Is this a current diagnosis for this admission?: Yes Plan: Appears to be stable. Likely secondary to diabetes and hypertension. Continue ARB for possible proteinurea. Renal function is stable on diovan. (5) Enterococcus faecalis infection Is this a current diagnosis for this admission?: Yes Plan: Continue ampicillin to complete 14 days of treatment. Stop date 07/05. (6) Hyperlipidemia Is this a current diagnosis for this admission?: Yes Plan: Continue simvastatin 20mg QHS. (7) Hypertension Qualifiers: Hypertension type: essential hypertension Qualified Code(s): I10 - Essential (primary) hypertension Is this a current diagnosis for this admission?: Yes Plan: Better controlled. Continue current medications. (8) Peripheral neuropathy Qualifiers: Peripheral neuropathy type: polyneuropathy, unspecified Qualified Code(s): G62.9 - Polyneuropathy, unspecified Is this a current diagnosis for this admission?: Yes Plan: Continue gabapentin. 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 Will continue to follow and adjust accordingly. Patient blood glucose 80 this morning. Patient states he did not feel well. Will decrease lantus to 35 units bid. Will check A1c. A1c 11.1. - Time Time Spent with patient: Less than 15 minutes Anticipated discharge: Home - Inpatient Certification Medical Necessity: Significant Comorbidiites Make Outpatient Treatment Too Risky , Need Close Monitoring Due to Risk of Patient Decompensation - She still with wound VAC in place and being monitored by surgery for appropriate wound healing.
--- NOTE | 2017-07-04 19:05 | PDOC PROGRESS REPORT ---
Subjective Progress Note for:: 07/04/17 Subjective:: Presented with a right foot pain on 05/01/2017. Patient was noted to have osteomyelitis on MRI. Patient underwent fifth toe at the fifth metatarsal bone with debridement on 05/02/2017. He then went back on 05/03/2017 to have wound VAC placed. Patient was started on Zosyn and then switched to Levaquin and Augmentin. Combination was adequate for the Proteus vulgaris, Enterococcus faecalis and Morganella morganii in his wound. Patient was found to be growing Enterococcus faecalis in his urine. Currently being treated with ampicillin. Patient was noted to have a bladder mass on renal ultrasound for which urology was consulted. Patient had urine cytology sent. Urology advised that patient follow-up as outpatient for further evaluation. Patient situation is complicated by the fact that he is homeless. Case management is currently following in his Medicaid application is pending. Is doing well and has a positive attitude he is a little bit anxious about what will happen once his wound VAC comes off. Patient wound VAC will be removed on 07/11/2017 if surgery deems appropriate. Reason For Visit: DIABETIC FOOT ULCER Physical Exam Vital Signs: Temp Pulse Resp BP Pulse Ox 97.4 F 67 18 173/64 H 99 07/04/17 16:00 07/04/17 16:00 07/04/17 16:00 07/04/17 16:00 07/04/17 16:00 Intake & Output 07/03/17 07/04/17 07/05/17 06:59 06:59 06:59 Intake Total 944 1263 Output Total 225 Balance 944 1038 Weight 83.5 kg General appearance: PRESENT: no acute distress, obese, well-developed, well- nourished Head exam: PRESENT: normocephalic Eye exam: PRESENT: EOMI. ABSENT: scleral icterus Mouth exam: PRESENT: moist Neck exam: ABSENT: carotid bruit, JVD, lymphadenopathy, thyromegaly Respiratory exam: PRESENT: clear to auscultation manuel. ABSENT: rales, rhonchi, wheezes Cardiovascular exam: PRESENT: RRR. ABSENT: diastolic murmur, rubs, systolic murmur Pulses: PRESENT: normal dorsalis pedis pul Vascular exam: PRESENT: normal capillary refill GI/Abdominal exam: PRESENT: normal bowel sounds, soft. ABSENT: distended, guarding, mass, organolmegaly, rebound, tenderness Rectal exam: PRESENT: deferred Extremities exam: PRESENT: full ROM, other - Right foot wound VAC in place. ABSENT: calf tenderness, clubbing, pedal edema Neurological exam: PRESENT: alert, awake, oriented to person, oriented to place , oriented to time, oriented to situation, CN II-XII grossly intact. ABSENT: motor sensory deficit Psychiatric exam: PRESENT: appropriate affect, normal mood. ABSENT: homicidal ideation, suicidal ideation Skin exam: PRESENT: dry, intact, warm. ABSENT: cyanosis, rash Results Laboratory Results: 07/01/17 04:03 06/29/17 08:28 Impressions: Foot X-Ray 05/01/17 14:36 IMPRESSION: PATIENT WITH PRIOR HEALED 4TH AND 5TH METATARSAL FRACTURES WITH SHAGGY APPEARANCE INVOLVING THE FRACTURE SITES WHICH COULD REPRESENT SEQUELA OF THE PRIOR HEALING OR SUPERIMPOSED OSTEOMYELITIS GIVEN PATIENT'S HISTORY OF ULCERATION. MRI IS FOR FURTHER EVALUATION CLINICALLY INDICATED. Lower Extremity MRI 05/01/17 15:51 IMPRESSION: Ulcer over the base of the 5th metatarsal with bony cortical with erosion and abnormal marrow signal in the proximal 2/3 of the 5th metatarsal compatible with osteomyelitis. Guidance Fluoroscopy 05/05/17 00:00 IMPRESSION: Please see combined report for performance of procedure and radiologic supervision and interpretation. Interventional Vascular Procedure 05/05/17 00:00 IMPRESSION: Please see combined report for performance of procedure and radiologic supervision and interpretation. PICC Line Insertion 05/05/17 00:00 IMPRESSION: SUCCESSFUL PLACEMENT OF A 5 FR dual LUMEN 39 CM PICC IN THE basilic VEIN. Renal Ultrasound 06/23/17 00:00 IMPRESSION: 2 cm potential bladder base mass. Kidneys unremarkable. Assessment & Plan - Diagnosis (1) Diabetic foot infection Is this a current diagnosis for this admission?: Yes Plan: Management per surgery. Patient with wound vac in place. Treated with Levaquin and Augmentin. VAC is being changed twice a week. Plan is to keep wound vac for 2 more weeks that's approximately 07/11. Patient appears to be healing well. (2) Acute renal failure Is this a current diagnosis for this admission?: Yes Plan: Patient with acute on chronic CKD 3 possible due to NSAIDS, infections and or ACEI/ARB in the presence of dehydration. Patient creatinine stable. (3) Bladder mass Is this a current diagnosis for this admission?: Yes Plan: Allergies send urine for cytology. Dr. Alvarado would recommend that patient follow-up as outpatient with urology for further evaluation. (4) Chronic kidney disease, stage 3 (moderate) Is this a current diagnosis for this admission?: Yes Plan: Appears to be stable. Likely secondary to diabetes and hypertension. Continue ARB for possible proteinurea. Renal function is stable on diovan. (5) Enterococcus faecalis infection Is this a current diagnosis for this admission?: Yes Plan: Had Enterococcus faecalis UTI. Patient has received 13 days of ampicillin will discontinue antibiotics at this time. (6) Hyperlipidemia Is this a current diagnosis for this admission?: Yes Plan: Continue simvastatin 20mg QHS. (7) Hypertension Qualifiers: Hypertension type: essential hypertension Qualified Code(s): I10 - Essential (primary) hypertension Is this a current diagnosis for this admission?: Yes Plan: Better controlled patient has occasional readings of 174/62. Patient may need further adjustments. Will increase his nifedipine 60 mg p.o. twice daily. Continue Imdur and Diovan at current dosages. Continue with as needed clonidine. (8) Peripheral neuropathy Qualifiers: Peripheral neuropathy type: polyneuropathy, unspecified Qualified Code(s): G62.9 - Polyneuropathy, unspecified Is this a current diagnosis for this admission?: Yes Plan: Continue gabapentin. (9) Uncontrolled type 2 diabetes mellitus Qualifiers: Diabetes mellitus complication status: with hyperglycemia Diabetes mellitus continuous churn buttermaker insulin use: with longterm use Qualified Code(s): E11.65 - Type 2 diabetes mellitus with hyperglycemia; Z79.4 - nursing home (current) use of insulin; Z79.4 - long term care administrator (current) use of insulin; Z79.4 - long term care administrator ( current) use of insulin; Z79.4 - nursing home (current) use of insulin Is this a current diagnosis for this admission?: Yes Plan: Patient blood glucoses are better control however some are elevated towards the evening. Will increase his long-acting insulin to 30 units twice daily. 40 was too much previously resulting in a morning blood glucose of 80 which patient states made him feel uncomfortable. Patient hemoglobin A1c is 11.1 which is better from previous A1c of<13 - Time Time Spent with patient: Less than 15 minutes Anticipated discharge: Home - Inpatient Certification Medical Necessity: Significant Comorbidiites Make Outpatient Treatment Too Risky , Need Close Monitoring Due to Risk of Patient Decompensation
[2017-07-04] MEDS: SIMVASTATIN 10 MG TABLET PO SCH (23:25)
[2017-07-04] MEDS: GABAPENTIN 300 MG CAPSULE PO SCH (23:25)
[2017-07-04] MEDS: TRAZODONE HCL 50 MG TABLET PO SCH (23:26)
[2017-07-04] MEDS: ISOSORBIDE MONONITRATE 30 MG TAB.ER.24H PO SCH (23:26)
[2017-07-05] MEDS: NIFEDIPINE 30 MG TAB.ER.24 PO SCH ×2 (06:43→18:15)
[2017-07-05] MEDS: LACTULOSE SYRUP 20 GM/30 ML UDCUP PO PRN (06:49)
[2017-07-05] MEDS ORDERED: BISACODYL 10 MG SUPP.RECT PR ONE (10:00)
[2017-07-05] MEDS: METOPROLOL SUCCINATE 50 MG TAB.SR.24H PO SCH ×2 (10:17→21:31)
[2017-07-05] MEDS: FAMOTIDINE 20 MG TABLET PO SCH ×2 (10:18→21:31)
[2017-07-05] MEDS: POLYETHYLENE GLYCOL 3350 POWDER 17 GM/1 PACKET PO SCH (10:19)
[2017-07-05] MEDS: INSULIN GLARGINE,HUM.REC.ANLOG 1,000 UNIT/10 ML UNIT SUBCUT SCH ×2 (10:21→21:30)
[2017-07-05] MEDS: ENOXAPARIN SODIUM INJ 30 MG/0.3 ML DISP.SYRIN SUBCUT SCH (10:22)
[2017-07-05] MEDS: VALSARTAN 160 MG TABLET PO SCH (11:39)
[2017-07-05] MEDS ORDERED: MAGNESIUM CITRATE 296 ML BOTTLE PO ONE (12:00)
--- NOTE | 2017-07-05 15:28 | PDOC PROGRESS REPORT ---
Subjective Progress Note for:: 07/05/17 Subjective:: The patient is a 56-year-old diabetic male. He was hospitalized on 05/01/2017 with a diabetic foot ulcer complicated by osteomyelitis. He underwent 5th toe amputation with debridement on 05/02/2017. Initially, he was placed on Zosyn and this was then changed to Levaquin and Augmentin. His cultures have grown Proteus vulgaris, Enterococcus faecalis and Morganella morganii I in the wound. He also had a urinary tract infection with Enterococcus faecalis. Currently, he is on ampicillin. During his admission he developed acute on chronic renal failure. A renal ultrasound was done showing a mass in the bladder. Urine cytology was sent and the patient will need outpatient evaluation with urology. His wound VAC is due to come off on 07/11/2017. Reason For Visit: DIABETIC FOOT ULCER Physical Exam Vital Signs: Temp Pulse Resp BP Pulse Ox 98.4 F 67 18 145/70 H 100 07/05/17 10:59 07/05/17 10:59 07/05/17 10:59 07/05/17 10:59 07/05/17 10:59 Intake & Output 07/04/17 07/05/17 07/06/17 06:59 06:59 06:59 Intake Total 1263 1730 Output Total 225 Balance 1038 1730 Additional comments: The patient's only complaint this morning physically was constipation. He feels severely constipated and is having difficulty eating. He has not had a bowel movement several days. In addition, he feels very stressed and overwhelmed with his current social social circumstances. He does not have insurance. He is not sure how is going to get to his outpatient appointments and he does not have a home with good social support. His mentation is good. His lungs are clear to auscultation bilaterally. His cardiac exam is regular without murmurs, gallops or rubs. The abdomen is distended and firm but there is no guarding or rebound noted. Bowel sounds are hypoactive. The patient has a wound VAC on the right foot. Left lower extremity does continue to have some edema which is nonpitting. Overall, his edema appears improved when compared to the last time I saw this gentleman. Results Laboratory Results: 07/01/17 04:03 06/29/17 08:28 Impressions: Foot X-Ray 05/01/17 14:36 IMPRESSION: PATIENT WITH PRIOR HEALED 4TH AND 5TH METATARSAL FRACTURES WITH SHAGGY APPEARANCE INVOLVING THE FRACTURE SITES WHICH COULD REPRESENT SEQUELA OF THE PRIOR HEALING OR SUPERIMPOSED OSTEOMYELITIS GIVEN PATIENT'S HISTORY OF ULCERATION. MRI IS FOR FURTHER EVALUATION CLINICALLY INDICATED. Lower Extremity MRI 05/01/17 15:51 IMPRESSION: Ulcer over the base of the 5th metatarsal with bony cortical with erosion and abnormal marrow signal in the proximal 2/3 of the 5th metatarsal compatible with osteomyelitis. Guidance Fluoroscopy 05/05/17 00:00 IMPRESSION: Please see combined report for performance of procedure and radiologic supervision and interpretation. Interventional Vascular Procedure 05/05/17 00:00 IMPRESSION: Please see combined report for performance of procedure and radiologic supervision and interpretation. PICC Line Insertion 05/05/17 00:00 IMPRESSION: SUCCESSFUL PLACEMENT OF A 5 FR dual LUMEN 39 CM PICC IN THE basilic VEIN. Renal Ultrasound 06/23/17 00:00 IMPRESSION: 2 cm potential bladder base mass. Kidneys unremarkable. Assessment & Plan - Diagnosis (1) Chronic kidney disease, stage 3 (moderate) Is this a current diagnosis for this admission?: Yes (2) Diabetic foot infection Is this a current diagnosis for this admission?: Yes (3) Hypertension Qualifiers: Hypertension type: essential hypertension Qualified Code(s): I10 - Essential (primary) hypertension Is this a current diagnosis for this admission?: Yes (4) Peripheral neuropathy Qualifiers: Peripheral neuropathy type: polyneuropathy, unspecified Qualified Code(s): G62.9 - Polyneuropathy, unspecified Is this a current diagnosis for this admission?: Yes (5) Uncontrolled type 2 diabetes mellitus Qualifiers: Diabetes mellitus complication status: with hyperglycemia Diabetes mellitus intermodal customer service insulin use: with detention use Qualified Code(s): E11.65 - Type 2 diabetes mellitus with hyperglycemia; Z79.4 - termite technician (current) use of insulin; Z79.4 - termite technician (current) use of insulin; Z79.4 - [facility] ( current) use of insulin; Z79.4 - [facility] (current) use of insulin Is this a current diagnosis for this admission?: Yes (6) Acute renal failure Is this a current diagnosis for this admission?: Yes (7) Bladder mass Is this a current diagnosis for this admission?: Yes - Plan Summary Plan Summary: The patient's wound VAC will remain in place until 07/11/2017. The patient's acute renal failure will be monitored with as needed labs. The patient will need to follow-up with urology regarding his bladder mass. We will need to ensure that these appointments are scheduled prior to discharge. The patient has completed 13 days of ampicillin for and Enterococcus faecalis urinary tract infection. He is currently receiving simvastatin for hyperlipidemia. Patient' s blood pressure was out of control. His nifedipine was recently increased to 60 mg twice daily. He is also receiving Khushi Kinsey and as needed clonidine. He is on gabapentin for his peripheral neuropathy. Recently, the patient's basal insulin was increased to 30 units twice daily. 40 units was previously too much. His A1c is improving.
[2017-07-05] MEDS: INSULIN LISPRO 100 UNIT/ML 3 ML VIAL SUBCUT PRN ×2 (18:16→21:59)
[2017-07-05] MEDS: SIMVASTATIN 10 MG TABLET PO SCH (21:31)
[2017-07-05] MEDS: GABAPENTIN 300 MG CAPSULE PO SCH (21:31)
[2017-07-05] MEDS: ISOSORBIDE MONONITRATE 30 MG TAB.ER.24H PO SCH (21:31)
[2017-07-05] MEDS: TRAZODONE HCL 50 MG TABLET PO SCH (21:31)
[2017-07-05] MEDS: OXYCODONE HCL IR 5 MG TABLET PO PRN (21:46)
[2017-07-06] MEDS: NIFEDIPINE 30 MG TAB.ER.24 PO SCH ×2 (06:28→18:38)
[2017-07-06 07:24] LABS: ANION GAP 12 (5-19); BLOOD UREA NITROGEN 37 mg/dL (7-20); CALCIUM 9.6 mg/dL (8.4-10.2); CARBON DIOXIDE 23 mmol/L (22-30); CHLORIDE 108 mmol/L (98-107); GLUCOSE 51 mg/dL (75-110); POTASSIUM 4.6 mmol/L (3.6-5.0); SODIUM 142.5 mmol/L (137-145)
[2017-07-06] MEDS: OXYCODONE HCL IR 5 MG TABLET PO PRN ×2 (10:14→23:00)
[2017-07-06] MEDS: FAMOTIDINE 20 MG TABLET PO SCH ×2 (10:15→22:57)
[2017-07-06] MEDS: POLYETHYLENE GLYCOL 3350 POWDER 17 GM/1 PACKET PO SCH (10:16)
[2017-07-06] MEDS: METOPROLOL SUCCINATE 50 MG TAB.SR.24H PO SCH ×2 (10:16→22:57)
[2017-07-06] MEDS: INSULIN GLARGINE,HUM.REC.ANLOG 1,000 UNIT/10 ML UNIT SUBCUT SCH ×2 (10:17→22:58)
[2017-07-06] MEDS: ENOXAPARIN SODIUM INJ 30 MG/0.3 ML DISP.SYRIN SUBCUT SCH (10:17)
--- NOTE | 2017-07-06 12:15 | PDOC PROGRESS REPORT ---
Subjective Progress Note for:: 07/06/17 Subjective:: The patient is a 56-year-old diabetic male. He was hospitalized on 05/01/2017 with a diabetic foot ulcer complicated by osteomyelitis. He underwent amputation of the right fifth toe at the 5th metatarsal bone with debridement on 05/02/2017. Initially, he was placed on Zosyn and this was then changed to Levaquin and Augmentin. His cultures have grown Proteus vulgaris, Enterococcus faecalis and Morganella morganii I in the wound. He also had a urinary tract infection with Enterococcus faecalis. Currently, he is on ampicillin. During his admission he developed acute on chronic renal failure. A renal ultrasound was done showing a mass in the bladder. Urine cytology was ordered and the patient will need outpatient evaluation with urology. His wound VAC is due to come off on 07/11/2017. Patient remains very frustrated regarding his overall situation. He feels that people are not doing enough to help him in regards to health insurance and disability. This morning, I told him that his blood sugar was low at 60. He denied having any symptoms. In fact, today he really denies any symptoms at all. Reason For Visit: DIABETIC FOOT ULCER Physical Exam Vital Signs: Temp Pulse Resp BP Pulse Ox 97.5 F 62 20 138/85 H 100 07/06/17 08:00 07/06/17 08:00 07/06/17 08:00 07/06/17 08:00 07/06/17 08:00 Intake & Output 07/05/17 07/06/17 07/07/17 06:59 06:59 06:59 Intake Total 1730 1541 Balance 1730 1541 Weight 82.9 kg Additional comments: The patient appears to be his stated age. He is sitting up in a chair. He is not in any distress. His cognition and mentation are normal. Patient's facial appearance is normal. His lungs are clear to auscultation bilaterally. His cardiac exam is regular. I do not appreciate any murmurs, gallops or rubs. The abdomen is soft, flat and benign. Bowel sounds are present. The abdomen is less distended and firm when compared to yesterday. The patient does continue to have 1+ edema of the lower extremities. The wound VAC is placed over the arm right foot. There are no new skin lesions or rashes. Results Laboratory Results: 07/01/17 04:03 07/06/17 05:55 07/06/17 05:55 Sodium 142.5 Potassium 4.6 Chloride 108 H Carbon Dioxide 23 Anion Gap 12 BUN 37 H Creatinine 1.62 H Est GFR ( Amer) 53 L Est GFR (Non-Af Amer) 44 L Glucose 51 L Calcium 9.6 Impressions: Foot X-Ray 05/01/17 14:36 IMPRESSION: PATIENT WITH PRIOR HEALED 4TH AND 5TH METATARSAL FRACTURES WITH SHAGGY APPEARANCE INVOLVING THE FRACTURE SITES WHICH COULD REPRESENT SEQUELA OF THE PRIOR HEALING OR SUPERIMPOSED OSTEOMYELITIS GIVEN PATIENT'S HISTORY OF ULCERATION. MRI IS FOR FURTHER EVALUATION CLINICALLY INDICATED. Lower Extremity MRI 05/01/17 15:51 IMPRESSION: Ulcer over the base of the 5th metatarsal with bony cortical with erosion and abnormal marrow signal in the proximal 2/3 of the 5th metatarsal compatible with osteomyelitis. Guidance Fluoroscopy 05/05/17 00:00 IMPRESSION: Please see combined report for performance of procedure and radiologic supervision and interpretation. Interventional Vascular Procedure 05/05/17 00:00 IMPRESSION: Please see combined report for performance of procedure and radiologic supervision and interpretation. PICC Line Insertion 05/05/17 00:00 IMPRESSION: SUCCESSFUL PLACEMENT OF A 5 FR dual LUMEN 39 CM PICC IN THE basilic VEIN. Renal Ultrasound 06/23/17 00:00 IMPRESSION: 2 cm potential bladder base mass. Kidneys unremarkable. Assessment & Plan - Diagnosis (1) Chronic kidney disease, stage 3 (moderate) Is this a current diagnosis for this admission?: Yes Plan: BMP was repeated this morning. Overall, creatinine remains stable. (2) Diabetic foot infection Is this a current diagnosis for this admission?: Yes Plan: Continue wound VAC until 07/11/2017. (3) Hypertension Qualifiers: Hypertension type: essential hypertension Qualified Code(s): I10 - Essential (primary) hypertension Is this a current diagnosis for this admission?: Yes Plan: Blood pressure was slightly high this morning. Overall, blood pressure is in a good range. (4) Peripheral neuropathy Qualifiers: Peripheral neuropathy type: polyneuropathy, unspecified Qualified Code(s): G62.9 - Polyneuropathy, unspecified Is this a current diagnosis for this admission?: Yes Plan: Continue gabapentin. (5) Uncontrolled type 2 diabetes mellitus Qualifiers: Diabetes mellitus complication status: with hyperglycemia Diabetes mellitus intermediate insulin use: with truck terminal manager use Qualified Code(s): E11.65 - Type 2 diabetes mellitus with hyperglycemia; Z79.4 - [facility] (current) use of insulin; Z79.4 - intermodal dispatcher (current) use of insulin; Z79.4 - [facility] ( current) use of insulin; Z79.4 - [facility] (current) use of insulin Is this a current diagnosis for this admission?: Yes Plan: Blood sugar was low this morning on serum, but, fingersticks continue to be elevated. I am going to add mealtime coverage. (6) Acute renal failure Is this a current diagnosis for this admission?: Yes Plan: The acute component of the patient's renal failure appears to have resolved. Creatinine is stable today, but, patient continues to have evidence of chronic kidney disease.. (7) Bladder mass Is this a current diagnosis for this admission?: Yes Plan: Urine cytology was ordered, however, this may not have been collected. I will ensure that this is done prior to discharge. Also, it is imperative that we make sure that the patient has a date and at time for a scheduled urology appointment in the outpatient sector prior to discharge.. - Time Time Spent with patient: 25-34 minutes - Plan Summary Plan Summary: Arrangements are being made for the patient to be discharged once the wound VAC can be removed. Tentatively, this will be 07/11/2017.
[2017-07-06] MEDS: INSULIN LISPRO 100 UNIT/ML 3 ML VIAL SUBCUT PRN (14:08)
[2017-07-06] MEDS: VALSARTAN 160 MG TABLET PO SCH (14:08)
[2017-07-06] MEDS: INSULIN LISPRO 100 UNIT/ML 3 ML VIAL SUBCUT SCH (18:14)
[2017-07-06] MEDS: TRAZODONE HCL 50 MG TABLET PO SCH (22:57)
[2017-07-06] MEDS: SIMVASTATIN 10 MG TABLET PO SCH (22:58)
[2017-07-06] MEDS: GABAPENTIN 300 MG CAPSULE PO SCH (22:58)
[2017-07-06] MEDS: ISOSORBIDE MONONITRATE 30 MG TAB.ER.24H PO SCH (22:58)
[2017-07-07] MEDS: NIFEDIPINE 30 MG TAB.ER.24 PO SCH ×2 (06:53→18:26)
[2017-07-07] MEDS: INSULIN LISPRO 100 UNIT/ML 3 ML VIAL SUBCUT SCH ×3 (07:38→18:32)
[2017-07-07] MEDS: POLYETHYLENE GLYCOL 3350 POWDER 17 GM/1 PACKET PO SCH (09:42)
[2017-07-07] MEDS: OXYCODONE HCL IR 5 MG TABLET PO PRN ×2 (09:43→21:26)
[2017-07-07] MEDS: METOPROLOL SUCCINATE 50 MG TAB.SR.24H PO SCH ×2 (09:44→21:25)
[2017-07-07] MEDS: FAMOTIDINE 20 MG TABLET PO SCH ×2 (09:44→21:24)
[2017-07-07] MEDS: INSULIN GLARGINE,HUM.REC.ANLOG 1,000 UNIT/10 ML UNIT SUBCUT SCH ×2 (09:45→21:24)
[2017-07-07] MEDS: ENOXAPARIN SODIUM INJ 30 MG/0.3 ML DISP.SYRIN SUBCUT SCH (09:45)
[2017-07-07] MEDS: VALSARTAN 160 MG TABLET PO SCH (11:44)
--- NOTE | 2017-07-07 12:15 | PDOC PROGRESS REPORT ---
Subjective Progress Note for:: 07/07/17 Subjective:: The patient is a 56-year-old diabetic male. He was hospitalized on 05/01/2017 with a diabetic foot ulcer complicated by osteomyelitis. He underwent amputation of the right fifth toe at the 5th metatarsal bone with debridement on 05/02/2017. Initially, he was placed on Zosyn and this was then changed to Levaquin and Augmentin. His cultures have grown Proteus vulgaris, Enterococcus faecalis and Morganella morganii I in the wound. He also had a urinary tract infection with Enterococcus faecalis. Currently, he is on ampicillin. During his admission he developed acute on chronic renal failure. A renal ultrasound was done showing a mass in the bladder. Urine cytology was ordered and the patient will need outpatient evaluation with urology. His wound VAC is due to come off on 07/11/2017. Yesterday, the patient became very angry. He feels that the providers at the hospital are not doing enough for him. He is very worried that when he goes home he will not have appropriate care and follow-up. I asked him to make a list of all of his concerns and I told him that I would address this with discharge planning. Today, when I tried to interview the patient and examined the patient he ignored me and refused any interaction. I told him I would come back later. Reason For Visit: DIABETIC FOOT ULCER Physical Exam Vital Signs: Temp Pulse Resp BP Pulse Ox 98.4 F 62 12 134/60 H 99 07/07/17 08:21 07/07/17 08:21 07/07/17 08:21 07/07/17 08:21 07/07/17 08:21 Intake & Output 07/06/17 07/07/17 07/08/17 06:59 06:59 06:59 Intake Total 1541 120 Balance 1541 120 Weight 82.9 kg Additional comments: The patient was sitting up eating his breakfast. He refused to answer any of my questions. The wound VAC is attached to the right foot. His exam was otherwise deferred. Per nursing staff his wound is actually healing nicely. This was evaluated when the wound VAC was changed yesterday. Results Laboratory Results: 07/01/17 04:03 07/06/17 05:55 Impressions: Foot X-Ray 05/01/17 14:36 IMPRESSION: PATIENT WITH PRIOR HEALED 4TH AND 5TH METATARSAL FRACTURES WITH SHAGGY APPEARANCE INVOLVING THE FRACTURE SITES WHICH COULD REPRESENT SEQUELA OF THE PRIOR HEALING OR SUPERIMPOSED OSTEOMYELITIS GIVEN PATIENT'S HISTORY OF ULCERATION. MRI IS FOR FURTHER EVALUATION CLINICALLY INDICATED. Lower Extremity MRI 05/01/17 15:51 IMPRESSION: Ulcer over the base of the 5th metatarsal with bony cortical with erosion and abnormal marrow signal in the proximal 2/3 of the 5th metatarsal compatible with osteomyelitis. Guidance Fluoroscopy 05/05/17 00:00 IMPRESSION: Please see combined report for performance of procedure and radiologic supervision and interpretation. Interventional Vascular Procedure 05/05/17 00:00 IMPRESSION: Please see combined report for performance of procedure and radiologic supervision and interpretation. PICC Line Insertion 05/05/17 00:00 IMPRESSION: SUCCESSFUL PLACEMENT OF A 5 FR dual LUMEN 39 CM PICC IN THE basilic VEIN. Renal Ultrasound 06/23/17 00:00 IMPRESSION: 2 cm potential bladder base mass. Kidneys unremarkable. Assessment & Plan - Diagnosis (1) Chronic kidney disease, stage 3 (moderate) Is this a current diagnosis for this admission?: Yes Plan: BMP was repeated 07/06/17. Overall, creatinine remains stable. (2) Diabetic foot infection Is this a current diagnosis for this admission?: Yes Plan: Continue wound VAC until 07/11/2017. (3) Hypertension Qualifiers: Hypertension type: essential hypertension Qualified Code(s): I10 - Essential (primary) hypertension Is this a current diagnosis for this admission?: Yes Plan: Blood pressure was slightly high yesterday morning. However, and now appears to be stable over the last 24 hours. Continue to follow. (4) Peripheral neuropathy Qualifiers: Peripheral neuropathy type: polyneuropathy, unspecified Qualified Code(s): G62.9 - Polyneuropathy, unspecified Is this a current diagnosis for this admission?: Yes Plan: Continue gabapentin. (5) Uncontrolled type 2 diabetes mellitus Qualifiers: Diabetes mellitus complication status: with hyperglycemia Diabetes mellitus rodent exterminator insulin use: with rodent exterminator use Qualified Code(s): E11.65 - Type 2 diabetes mellitus with hyperglycemia; Z79.4 - [facility] (current) use of insulin; Z79.4 - terminal block assembler (current) use of insulin; Z79.4 - [facility] ( current) use of insulin; Z79.4 - terminal block assembler (current) use of insulin Is this a current diagnosis for this admission?: Yes Plan: The patient's blood sugars have been somewhat erratic. He has been having periods of low blood sugar in the morning. I have decreased his Lantus to 30 twice daily from 38 twice daily. I have also added mealtime coverage in addition to sliding scale. (6) Acute renal failure Is this a current diagnosis for this admission?: Yes Plan: The acute component of the patient's renal failure appears to have resolved. Creatinine was stable yesterday, but, patient continues to have evidence of chronic kidney disease.. (7) Bladder mass Is this a current diagnosis for this admission?: Yes Plan: It is imperative that we make sure that the patient has a date and at time for a scheduled urology appointment in the outpatient sector prior to discharge. Today, the urine specimen for cytology was listed as uncollected. We did send a specimen down today. - Time Time Spent with patient: Less than 15 minutes - Plan Summary Plan Summary: The patient's wound VAC is due to be removed in the . At that time provided the wound looks viable we will make plans for discharge. The patient will have a very difficult time caring for himself at home as he is unable to reach his feet. I have asked his nurse to call me when the regional planner is on the floor. I would like to discuss the patient's concerns with the patient and the regional planner at the same time.
[2017-07-07] MEDS: INSULIN LISPRO 100 UNIT/ML 3 ML VIAL SUBCUT PRN (13:20)
[2017-07-07] MEDS: GABAPENTIN 300 MG CAPSULE PO SCH (21:24)
[2017-07-07] MEDS: ISOSORBIDE MONONITRATE 30 MG TAB.ER.24H PO SCH (21:24)
[2017-07-07] MEDS: SIMVASTATIN 10 MG TABLET PO SCH (21:25)
[2017-07-07] MEDS: TRAZODONE HCL 50 MG TABLET PO SCH (21:25)
[2017-07-08] MEDS: NIFEDIPINE 30 MG TAB.ER.24 PO SCH (05:54)
[2017-07-08 09:06] VITALS: BP 129/69
[2017-07-08] MEDS: OXYCODONE HCL IR 5 MG TABLET PO PRN (09:34)
[2017-07-08] MEDS: FAMOTIDINE 20 MG TABLET PO SCH (09:35)
[2017-07-08] MEDS: METOPROLOL SUCCINATE 50 MG TAB.SR.24H PO SCH (09:35)
[2017-07-08] MEDS: ENOXAPARIN SODIUM INJ 30 MG/0.3 ML DISP.SYRIN SUBCUT SCH (09:37)
[2017-07-08] MEDS: POLYETHYLENE GLYCOL 3350 POWDER 17 GM/1 PACKET PO SCH (09:37)
[2017-07-08] MEDS: INSULIN LISPRO 100 UNIT/ML 3 ML VIAL SUBCUT SCH (09:39)
[2017-07-08] MEDS: INSULIN GLARGINE,HUM.REC.ANLOG 1,000 UNIT/10 ML UNIT SUBCUT SCH (09:40)
--- NOTE | 2017-07-08 14:10 | PDOC DISCHARGE SUMMARY ---
General - Admit/Disc Date/PCP Admission Date/Primary Care Provider: 05/01/17 16:30 Discharge Date: 07/08/17 - Discharge Diagnosis (1) Chronic kidney disease, stage 3 (moderate) Is this a current diagnosis for this admission?: Yes (2) Diabetic foot infection Is this a current diagnosis for this admission?: Yes (3) Hypertension Is this a current diagnosis for this admission?: Yes (4) Peripheral neuropathy Is this a current diagnosis for this admission?: Yes (5) Uncontrolled type 2 diabetes mellitus Is this a current diagnosis for this admission?: Yes (6) Acute renal failure Is this a current diagnosis for this admission?: Yes (7) Bladder mass Is this a current diagnosis for this admission?: Yes - Additional Information Resuscitation Status: Full Code Home Medications: No Home Medications 05/01/17 History of Present Illness History of Present Illness: LEEANNE WYLIE is a 56 year old male who has a history of diabetes and is homeless. He reports that he has had an ulcer on the lateral part of his right foot for the last 3 months over the last several days she has had worsening pain and some fevers and chills at home. He is also had nausea and has had difficulty tolerating p.o. He reports that he gets cold at night because he is homeless but even during the daytime has developed some chills. He denies any purulent drainage from the wound however he does report a significant amount of pain. Patient has been evaluated by surgery and they recommend an MRI to make certain he does not have osteomyelitis. The patient is admitted for treatment of a diabetic foot ulcer and possible osteomyelitis of the right foot. Hospital Course Hospital Course: The patient is a 56-year-old diabetic male. He was hospitalized on 05/01/2017 with a diabetic foot ulcer complicated by osteomyelitis. He underwent amputation of the right fifth toe at the 5th metatarsal bone with debridement on 05/02/2017. Initially, he was placed on Zosyn and this was then changed to Levaquin and Augmentin. His cultures have grown Proteus vulgaris, Enterococcus faecalis and Morganella morganii I in the wound. He also had a urinary tract infection with Enterococcus faecalis treated with ampicillin. During his admission he developed acute on chronic renal failure. A renal ultrasound was done showing a mass in the bladder. Urine cytology was ordered and the patient will need outpatient evaluation with urology. The patient was tentatively planned for discharge on 07/11/2017. This was the day that the wound VAC was scheduled to be removed. During the week the patient exhibited increasingly agitated and belligerent behavior. He was concerned about being discharged since he is homeless. He was making statements that healthcare personnel and government personnel were not doing enough for him to get his disability. He was very concerned that he was not going to be able to live without access to a home or finances. On 07/07/2017 I had a meeting with the patient, the Medicaid coordinator and discharge planning. I asked him to state what his needs were so that we could make arrangements for discharge. He was also very belligerent at this meeting and asked us to leave. I was verbally informed this morning that sometime after last evening's meeting the patient expressed to his nurse that he was going to hurt me and the program services planner, Clementina. He also stated that if he was discharged on Thursday he would come back to the emergency department and he threatened to hurt people in the emergency department. This morning, the patient was very angry. When I entered his room to greet him he asked me to leave in a very angry fashion. He refused to allow me to examine him. Later this morning I was informed that the patient wanted to leave AGAINST MEDICAL ADVICE. After I was informed of the threats that the patient made I consulted psychiatry to involuntarily commit the patient. Unfortunately, before psychiatry was able to examine the patient he left AGAINST MEDICAL ADVICE. I was contacted by psychiatry. They asked me to make a statement to the local police so that the patient could be arrested if necessary. I did in fact leave a statement with Detective Hooker. At the end of the meeting we had determined that it was in the patient's best interest to be involuntarily committed and not arrested. However, at the time of this dictation I am unaware of the exact outcome. I believe that the patient has true psychiatric needs that require ongoing treatment. Physical Exam Vital Signs: Temp Pulse Resp BP Pulse Ox 97.5 F 58 L 12 129/69 H 99 07/08/17 07:24 07/08/17 07:24 07/08/17 07:24 07/08/17 07:24 07/08/17 07:24 Intake & Output 07/07/17 07/08/17 07/09/17 06:59 06:59 06:59 Intake Total 120 825 Balance 120 825 Results Laboratory Results: 07/01/17 04:03 07/06/17 05:55 Impressions: Foot X-Ray 05/01/17 14:36 IMPRESSION: PATIENT WITH PRIOR HEALED 4TH AND 5TH METATARSAL FRACTURES WITH SHAGGY APPEARANCE INVOLVING THE FRACTURE SITES WHICH COULD REPRESENT SEQUELA OF THE PRIOR HEALING OR SUPERIMPOSED OSTEOMYELITIS GIVEN PATIENT'S HISTORY OF ULCERATION. MRI IS FOR FURTHER EVALUATION CLINICALLY INDICATED. Lower Extremity MRI 05/01/17 15:51 IMPRESSION: Ulcer over the base of the 5th metatarsal with bony cortical with erosion and abnormal marrow signal in the proximal 2/3 of the 5th metatarsal compatible with osteomyelitis. Guidance Fluoroscopy 05/05/17 00:00 IMPRESSION: Please see combined report for performance of procedure and radiologic supervision and interpretation. Interventional Vascular Procedure 05/05/17 00:00 IMPRESSION: Please see combined report for performance of procedure and radiologic supervision and interpretation. PICC Line Insertion 05/05/17 00:00 IMPRESSION: SUCCESSFUL PLACEMENT OF A 5 FR dual LUMEN 39 CM PICC IN THE basilic VEIN. Renal Ultrasound 06/23/17 00:00 IMPRESSION: 2 cm potential bladder base mass. Kidneys unremarkable.
[2017-07-08] MEDS ORDERED: ISOSORBIDE MONONITRATE 30 MG TAB.ER.24H PO SCH (22:00)
--- NOTE | 2017-07-11 07:04 | PSYCHOLOGICAL NOTE ---
Psych Note - Psych Note Psych Note: Reason for Consult: Homicidal comments Clinician received a phone call from attending physician with concerns on threats the patient has made. She stated "he threatened to put a gun to my head and shoot me." Patient Eloped prior to clinician's arrival to room. Clinician spoke to attending nurse. She disclosed the patient had been very unhappy and scared about what was going to happen when discharged. Chart review conducted: Attending nurse noted During evening med pass, pt. stated he did not feel like the MDs and discharge planners were doing anything for him for the past 2 months. Pt. is angry he is being discharged to the street with no medicare or sort of financial support. Pt. then stated he felt a lot of rage towards them, and that it made him want to "hold up a glock to some of the staff in this hospitals head". Pt. then stated he was not that kind of angry man, but this was the way some of the staff was making him feel. Diagnosis: V60.0 (Z59.0) Homelessness V63.9 (Z75.3) Unavailability or inaccessibility of health care facilities R/O Antisocial Personality Disorder Multiple significant medical issues (Uncontrolled diabetes II, Acute renal Failure, HTN, Hyperlipidemia) Patient has made numerous threats to the hospital and staff. A psychiatric consult was ordered earlier in this current admission on 06/03/2017 to address intermittent SI/HI (saying if he didn't get help he ad a .22/saying he would go [place] style) comments he has made during stay at hospital. He acknowledged making comments mainly at the beginning. He admitted he had been frustrated, upset and scared at the time. He stated [place] is one of his favorite movies but would never do anything to harm the staff especially given how well he has been taken care of. He stated he does not have a .22 or access. He denied SI/ HI. He denied previous MH services to include both outpatient and inpatient. The patient is demonstrating behaviour that is congruent with antisocial personality disorder. Acute inpatient psychiatric hospitalization would not be appropriate for this patient's treatment, he needs termite treater outpatient therapeutic intervention with community services in place (i.e. ACT Team or Community Services Team). At this time, the behavioral health team is in agreement the patient does not meet IVC criteria. The patient has repeatedly made threats in an attempt to control, has denied wanting to follow through after previous episodes, and as admitted he does not have access to weapons. Currently the patient's statement and behaviour is a legal concern rather than psychiatric because he demonstrated on multiple occasions he is aware of right and wrong and he uses threatening comments as a way to manipulate and control NOT as a part of a psychosis. TOM has been contacted. Dr. Desai was consulted on the care and management of this patient.
== END 2017-07-08 11:00 | disposition left against medical advice (07) | DRG 618 ==
LOC: ER 12:55 → EH 16:21 → UNDOADMIN 16:21 → EH 16:30 → 4N 18:34
PROVIDERS: ADMIT Internal Medicine; ATTEND Internal Medicine
PROC: 0Y6M0ZF Detachment at Right Foot, Partial 5th Ray, Open Approach (ICD-10-PCS; principal; 2017-05-02 10:30)
PROC: 2W1SX6Z Compression of Right Foot using Pressure Dressing (ICD-10-PCS; 2017-05-04)
PROC: 02HV33Z Insertion of Infusion Device into Superior Vena Cava, Percutaneous Approach (ICD-10-PCS; 2017-05-05)
PROC: B5181ZA Fluoroscopy of Superior Vena Cava using Low Osmolar Contrast, Guidance (ICD-10-PCS; 2017-05-05)
PROC: B548ZZA Ultrasonography of Superior Vena Cava, Guidance (ICD-10-PCS; 2017-05-05)
DX: E11.621 Type 2 diabetes mellitus with foot ulcer (principal); L97.519 Non-pressure chronic ulcer of other part of right foot with unspecified severity; E11.65 Type 2 diabetes mellitus with hyperglycemia; I12.9 Hypertensive chronic kidney disease with stage 1 through stage 4 chronic kidney disease, or unspecified chronic kidney disease; E11.22 Type 2 diabetes mellitus with diabetic chronic kidney disease; N18.3 Chronic kidney disease, stage 3 (moderate); E11.40 Type 2 diabetes mellitus with diabetic neuropathy, unspecified; N17.9 Acute kidney failure, unspecified; N32.9 Bladder disorder, unspecified; Z59.0 Homelessness; G89.18 Other acute postprocedural pain; B96.4 Proteus (mirabilis) (morganii) as the cause of diseases classified elsewhere; B95.2 Enterococcus as the cause of diseases classified elsewhere; E78.5 Hyperlipidemia, unspecified; F41.9 Anxiety disorder, unspecified; F32.9 Major depressive disorder, single episode, unspecified; F17.200 Nicotine dependence, unspecified, uncomplicated; Z88.8 Allergy status to other drugs, medicaments and biological substances
CPT/HCPCS: 01480; 36415; 36569; 76770; 76937; 77001; 80048; 80053; 81001; 82565; 82803; 82962; 83036; 83605; 83735; 83930; 84100; 85025; 85027; 85610; 85730; 87040; 87070; 87075; 87077; 87086; 87088; 87186; 87205; 88305; 93005; 93010; 93971; 96360; 99285; A6266; J0696; J1170; J1200; J1642; J1650; J1815; J1885; J2250; J2270; J2405; J2543; J2704; J2765; J2997; J3010; J3490; J7030; J7620

== ENCOUNTER 2017-07-10 21:46 | Inpatient (IN) | payer OTHER ==
--- NOTE | 2017-07-10 22:33 | ER Document Report ---
ED Extremity Problem, Lower - General Chief Complaint: Foot Pain Stated Complaint: RIGHT FOOT PAIN Time Seen by Provider: 07/10/17 22:30 Notes: The patient is a 56-year-old male, who has been admitted to hospitalist services since 05/01/17 for diabetic foot ulcer, hyperlipidemia, HTN, uncontrolled Diabetes II, Acute Renal Failure, acute pain, and anxiety, presents in police custody with worsening right foot pain and malodorous discharge. He left AMA 2 days ago after he said that he his outpatient needs would not be met. Patient said that he has been walking around on his foot with the wound dressing in place and he has not had his antibiotics since he left AMA. Patient was arrested after he was making threatening comments against his doctors. The police brought him back. Patient is still having pain and noticed increased discharge from the wound. Denies fevers, calf tenderness or any other injuries. TRAVEL OUTSIDE OF THE [place] IN LAST 30 DAYS: No - Related Data Allergies/Adverse Reactions: insulin regular [From Novolin 70/30] Allergy (Unknown, Verified 06/01/17 13:03) insulin isophane (NPH) [From Novolin 70/30] Allergy (Verified 06/01/17 13:02) metformin Allergy (Verified 05/01/17 13:30) Past Medical History - General Information source: Patient - Social History Smoking Status: Unknown if Ever Smoked Family History: Reviewed & Not Pertinent - Past Medical History Cardiac Medical History: Reports: Hx Hypercholesterolemia, Hx Hypertension Endocrine Medical History: Reports: Hx Diabetes Mellitus Type 1, Hx Diabetes Mellitus Type 2 Renal/ Medical History: Denies: Hx Peritoneal Dialysis Psychiatric Medical History: Reports: Hx Depression Past Surgical History: Reports: Other - Umbilical hernia repair Review of Systems - Review of Systems Notes: REVIEW OF SYSTEMS: CONSTITUTIONAL: -fevers, -chills EENT: -eye pain, -difficulty swallowing, -nasal congestion CARDIOVASCULAR: -chest pain, -syncope. RESPIRATORY: -cough, -SOB GASTROINTESTINAL: -abdominal pain, -nausea, -vomiting, -diarrhea GENITOURINARY: -dysuria, -hematuria MUSCULOSKELETAL: +right foot pain, -back pain, -neck pain HEMATOLOGIC: -easy bruising or bleeding. LYMPHATIC: -swollen, enlarged glands. NEUROLOGICAL: -altered mental status or loss of consciousness, -headache, - neurologic symptoms PSYCHIATRIC: -anxiety, -depression. ALL OTHER SYSTEMS REVIEWED AND NEGATIVE. Physical Exam - Vital signs Vitals: Temp Pulse Resp BP Pulse Ox 98.7 F 83 18 136/87 H 98 07/10/17 22:02 07/10/17 22:02 07/10/17 22:02 07/10/17 22:02 07/10/17 22:02 - Notes Notes: PHYSICAL EXAMINATION: GENERAL: Well-appearing, well-nourished and in no acute distress. In police custody. HEAD: Atraumatic, normocephalic. EYES: Pupils equal round and reactive to light, extraocular movements intact, sclera anicteric, conjunctiva are normal. ENT: nares patent, oropharynx clear without exudates. Moist mucous membranes. NECK: Normal range of motion, supple without lymphadenopathy LUNGS: Breath sounds clear to auscultation bilaterally and equal. No wheezes rales or rhonchi. HEART: Regular rate and rhythm without murmurs ABDOMEN: Soft, nontender, normoactive bowel sounds. No guarding, no rebound. No masses appreciated. EXTREMITIES: Right foot s/p 5th toe amputation. Malodorous discharge from wound on lateral aspect of right foot. Foot wrapped in clear wound dressing. NEUROLOGICAL: Cranial nerves grossly intact. Normal speech. Normal sensory and motor exams. PSYCH: Normal mood, normal affect. Course - Re-evaluation Re-evalutation: Pt with increasing drainage from his right foot wound. He left AMA yesterday and he does not have any outpatient resources. He does not have antibiotics to treat his foot wound. His x-ray shows possible 4th metatarsal osteomyelitis. 07/10/17 22:[address] Hollis (Surgicalist). He just started a procedure. He will callback after the procedure. 07/11/17 01:[address] Hollis about concern for worsening osteomyelitis and wound infection and he will see patient in the morning. 07/11/17 01:[address] Fulton and will admit patient to Medicine floor. - Vital Signs Vital signs: Temp Pulse Resp BP Pulse Ox 98.7 F 83 18 136/87 H 98 07/10/17 22:02 07/10/17 22:02 07/10/17 22:02 07/10/17 22:02 07/10/17 22:02 - Laboratory Result Diagrams: 07/11/17 00:00 07/11/17 00:00 Laboratory results interpreted by me: 07/10/17 07/11/17 07/11/17 23:49 00:00 00:00 Hgb 12.9 L RDW 14.7 H ESR 40 H Sodium 135.3 L BUN 36 H Creatinine 1.36 H Est GFR (Non-Af Amer) 54 L Glucose 221 H POC Glucose 193 H - Diagnostic Test Radiology reviewed: Image reviewed, Reports reviewed Radiology results interpreted by me: Right foot x-ray: Absence of the right fifth digit. Mild deformity of the right fourth metatarsus probably indicates prior injury; differential diagnosis includes chronic osteomyelitis of the right fourth metatarsus. Discharge - Discharge Clinical Impression: Diabetic foot ulcer Qualifiers: Diabetic foot ulcer location: toe Diabetes mellitus type: other specified ( including VISHNU) Laterality: right Non-pressure ulcer stage: unspecified non- pressure ulcer stage Qualified Code(s): E13.621 - Other specified diabetes mellitus with foot ulcer Osteomyelitis Qualifiers: Osteomyelitis type: unspecified type Osteomyelitis location: foot Laterality: right Qualified Code(s): M86.9 - Osteomyelitis, unspecified Condition: Stable Disposition: ADMITTED INPATIENT Admitting Provider: Ana [facility] Unit Admitted: Medical Floor
[2017-07-10] MEDS ORDERED: LEVOFLOXACIN 750 MG TABLET PO ONE (22:48)
[2017-07-10] MEDS ORDERED: AMOXICILLIN TR/POT CLAVULANATE 500-125 MG TAB PO ONE (22:48)
[2017-07-10] MEDS ORDERED: AMOXICILLIN TRIHYDRATE 500 MG CAPSULE PO ONE (22:48)
[2017-07-11 00:20] LABS: ABSOLUTE EOSINOPHILS # (AUTO) 0.1 10^3/uL (0.0-0.6); ABSOLUTE LYMPHOCYTES (AUTO) 2.5 10^3/uL (0.5-4.7); ABSOLUTE MONOCYTES (AUTO) 0.8 10^3/uL (0.1-1.4); ABSOLUTE NEUT (AUTO) 5.1 10^3/uL (1.7-8.2); BASOPHILS % (AUTO) 0.4 % (0-2); EOSINOPHILS % (AUTO) 1.5 % (0-6); HEMATOCRIT 38.9 % (37.9-51.0); HEMOGLOBIN 12.9 g/dL (13.5-17.0); LYMPHOCYTES % (AUTO) 29.5 % (13-45); MEAN CORPUSCULAR HEMOGLOBIN 28.3 pg (27.0-33.4); MEAN CORPUSCULAR HGB CONC 33.1 g/dL (32.0-36.0); MEAN CORPUSCULAR VOLUME 86 fl (80-97); MONOCYTES % (AUTO) 9.6 % (3-13); PLATELET COUNT 230 10^3/uL (150-450); RED BLOOD COUNT 4.54 10^6/uL (4.35-5.55); RED CELL DISTRIBUTION WIDTH 14.7 % (11.5-14.0); TOTAL CELLS COUNTED % (AUTO) 100 %; WHITE BLOOD COUNT 8.6 10^3/uL (4.0-10.5)
--- NOTE | 2017-07-11 00:46 | RADIOLOGY REPORT (SQ) ---
EXAM DESCRIPTION: FOOT RIGHT COMPLETE CLINICAL HISTORY: 56 years, Male, right foot drainage COMPARISON: CR, 05/01/2017, report only NUMBER OF VIEWS: 3 LIMITATIONS: None. FINDINGS: Amputated/absent fifth digit of the right foot from the level of the Lisfranc joint. Residual fragments and/or heterotopic calcification measure up to 2.1 cm. Moderate swelling and small soft tissue emphysema of the residual lateral right forefoot and midfoot. Mild sclerosis/deformity of the right fourth metatarsal shaft with 3 mm cortical defect at the lateral aspect of the proximal diametaphysis of the right fourth metatarsus probably indicates prior injury as compared with report only from a prior exam, 05/01/2017; differential diagnosis includes chronic osteomyelitis. Atherosclerosis. IMPRESSION: Absence of the right fifth digit. Mild deformity of the right fourth metatarsus probably indicates prior injury; differential diagnosis includes chronic osteomyelitis of the right fourth metatarsus. 2011 [employer]- All Rights Reserved
[2017-07-11 00:54] LABS: ALANINE AMINOTRANSFERASE 52 U/L (21-72); ALBUMIN 4.5 g/dL (3.5-5.0); ALKALINE PHOSPHATASE 82 U/L (38-126); ANION GAP 10 (5-19); ASPARTATE AMINO TRANSFERASE 37 U/L (17-59); BILIRUBIN,DIRECT 0.3 mg/dL (0.0-0.4); BILIRUBIN,TOTAL 0.6 mg/dL (0.2-1.3); BLOOD UREA NITROGEN 36 mg/dL (7-20); CALCIUM 9.8 mg/dL (8.4-10.2); CARBON DIOXIDE 23 mmol/L (22-30); CHLORIDE 102 mmol/L (98-107); GLUCOSE 221 mg/dL (75-110); POTASSIUM 4.4 mmol/L (3.6-5.0); SODIUM 135.3 mmol/L (137-145)
[2017-07-11 01:00] LABS: ERYTHROCYTE SEDIMENTATION RATE 40 mm/hr (0-20)
[2017-07-11] MEDS ORDERED: NORMAL SALINE 1000 ML 1,000 ML IV ONE (01:30)
[2017-07-11] MEDS ORDERED: HALOPERIDOL 5 MG TABLET PO ONE (01:35)
[2017-07-11] MEDS ORDERED: DEXTROSE 50%-WATER 25 GM/50 ML DISP.SYRIN IV PRN ×2 (01:36)
[2017-07-11] MEDS ORDERED: GLUCAGON,HUMAN RECOMB 1 MG INJ IM PRN (01:36)
[2017-07-11] MEDS ORDERED: MAG HYDROX/AL HYDROX/SIMETH SUSP 30 ML UDCUP PO PRN (01:36)
[2017-07-11] MEDS ORDERED: DEXTROSE 40% GEL 15 GM TUBE PO PRN ×2 (01:36)
[2017-07-11] MEDS ORDERED: IPRATROPIUM/ALBUTEROL 0.5-2.5 MG/3 ML AMPUL NEB PRN (01:36)
[2017-07-11] MEDS ORDERED: HALOPERIDOL LACTATE INJ 5 MG/1 ML VIAL IV ONE (01:42)
--- NOTE | 2017-07-11 05:19 | PDOC H&P ---
History of Present Illness Admission Date/PCP: 07/11/17 01:50 Patient complains of: Right foot pain History of Present Illness: LEEANNE WYLIE is a 56 year old male with a past medical history of diabetes, diabetic foot ulcer with right foot osteomyelitis, hypertension, stage III chronic kidney disease, bladder mass who is homeless. Patient was hospitalized on May 01, 2017 for amputation of the right fifth toe and metatarsal debridement who is receiving treatment including wound VAC as an inpatient until July 08 when he became belligerent and threatening against medical staff resulting in leaving AGAINST MEDICAL ADVICE. He has subsequently been arrested by [facility] and brought to the emergency room for evaluation of a malodorous right foot ulcer. Patient appears calm and denies chest pain palpitations nausea vomiting or fever. Surgery is consulted and he is referred to the hospitalist for admission. Past Medical History Cardiac Medical History: Reports: Hyperlipidema, Hypertension Endocrine Medical History: Reports: Diabetes Mellitus Type 1, Diabetes Mellitus Type 2 Musculoskeltal Medical History: Reports: Other - Right foot ulcer with osteonecrosis Psychiatric Medical History: Reports: Depression Past Surgical History Past Surgical History: Reports: Other - Umbilical hernia repair Social History Information Source: Patient, [facility] Records - Homeless Lives with: Homeless, Other Smoking Status: Unknown if Ever Smoked Frequency of Alcohol Use: None Hx Recreational Drug Use: No Drugs: None Hx Prescription Drug Abuse: No - Advance Directive Resuscitation Status: Full Code Family History Family History: None - Unknown to patient Parental Family History Reviewed: Yes Children Family History Reviewed: Yes Sibling(s) Family History Reviewed.: Yes Medication/Allergy Home Medications: No Home Medications 05/01/17 Allergies/Adverse Reactions: insulin regular [From Novolin 70/30] Allergy (Unknown, Verified 06/01/17 13:03) insulin isophane (NPH) [From Novolin 70/30] Allergy (Verified 06/01/17 13:02) metformin Allergy (Verified 05/01/17 13:30) Review of Systems Constitutional: ABSENT: chills, fever(s), headache(s), weight gain, weight loss Eyes: ABSENT: visual disturbances Ears: ABSENT: hearing changes Cardiovascular: ABSENT: chest pain, dyspnea on exertion, edema, orthropnea, palpitations Respiratory: ABSENT: cough, hemoptysis Gastrointestinal: ABSENT: abdominal pain, constipation, diarrhea, hematemesis, hematochezia, nausea, vomiting Genitourinary: ABSENT: dysuria, hematuria Musculoskeletal: ABSENT: joint swelling Integumentary: ABSENT: rash, wounds Neurological: ABSENT: abnormal gait, abnormal speech, confusion, dizziness, focal weakness, syncope Psychiatric: ABSENT: anxiety, depression, homidical ideation, suicidal ideation Endocrine: ABSENT: cold intolerance, heat intolerance, polydipsia, polyuria Hematologic/Lymphatic: ABSENT: easy bleeding, easy bruising Physical Exam Vital Signs: Temp Pulse Resp BP Pulse Ox 98.7 F 83 18 136/87 H 98 07/10/17 22:02 07/10/17 22:02 07/10/17 22:02 07/10/17 22:02 07/10/17 22:02 General appearance: PRESENT: cooperative, disheveled, mild distress Head exam: PRESENT: atraumatic, normocephalic Eye exam: PRESENT: conjunctiva pink, EOMI, PERRLA. ABSENT: scleral icterus Ear exam: PRESENT: normal external ear exam Mouth exam: PRESENT: moist, tongue midline Neck exam: ABSENT: carotid bruit, JVD, lymphadenopathy, thyromegaly Respiratory exam: PRESENT: clear to auscultation manuel. ABSENT: rales, rhonchi, wheezes Cardiovascular exam: PRESENT: RRR. ABSENT: diastolic murmur, rubs, systolic murmur Pulses: PRESENT: normal dorsalis pedis pul Vascular exam: PRESENT: normal capillary refill GI/Abdominal exam: PRESENT: normal bowel sounds, soft. ABSENT: distended, guarding, mass, organolmegaly, rebound, tenderness Rectal exam: PRESENT: deferred Extremities exam: PRESENT: full ROM. ABSENT: calf tenderness, clubbing, pedal edema Neurological exam: PRESENT: alert, awake, oriented to person, oriented to place , oriented to time, oriented to situation, CN II-XII grossly intact. ABSENT: motor sensory deficit Psychiatric exam: PRESENT: appropriate affect, normal mood. ABSENT: homicidal ideation, suicidal ideation Skin exam: PRESENT: dry, warm, other. ABSENT: cyanosis, rash Results Impressions: Foot X-Ray 07/10/17 22:30 IMPRESSION: Absence of the right fifth digit. Mild deformity of the right fourth metatarsus probably indicates prior injury; differential diagnosis includes chronic osteomyelitis of the right fourth metatarsus. 2011 [employer]- All Rights Reserved Assessment & Plan - Diagnosis (1) Diabetic foot ulcer Qualifiers: Diabetic foot ulcer location: toe Diabetes mellitus type: other specified ( including VISHNU) Laterality: right Non-pressure ulcer stage: unspecified non- pressure ulcer stage Qualified Code(s): E13.621 - Other specified diabetes mellitus with foot ulcer; L97.519 - Non-pressure chronic ulcer of other part of right foot with unspecified severity; L97.519 - Non-pressure chronic ulcer of other part of right foot with unspecified severity; L97.519 - Non-pressure chronic ulcer of other part of right foot with unspecified severity; L97.519 - Non-pressure chronic ulcer of other part of right foot with unspecified severity Is this a current diagnosis for this admission?: Yes Plan: Complicated by homelessness, noncompliance and osteomyelitis. Former wound cultures growing Proteus vulgaris and enterococcus Morganelli sensitive to Levaquin and Augmentin which is continued. Surgery consulted for debridement. (2) Osteomyelitis Qualifiers: Osteomyelitis type: unspecified type Osteomyelitis location: foot Laterality: right Qualified Code(s): M86.9 - Osteomyelitis, unspecified Is this a current diagnosis for this admission?: Yes Plan: Please see #1 (3) Anxiety Is this a current diagnosis for this admission?: Yes Plan: Trial of Abilify 10 mg twice daily (4) Bladder mass Is this a current diagnosis for this admission?: Yes Plan: urology consult when available. 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
[2017-07-11] MEDS: NORMAL SALINE 1000 ML 1,000 ML IV PRN ×2 (06:00→08:24)
[2017-07-11] MEDS: DOCUSATE SODIUM 100 MG CAPSULE PO SCH ×2 (09:54→18:40)
[2017-07-11] MEDS: ARIPIPRAZOLE 5 MG TABLET PO SCH ×2 (09:54→18:41)
[2017-07-11] MEDS: AMOXICILLIN TR/POT CLAVULANATE 500-125 MG TAB PO SCH (09:54)
[2017-07-11] MEDS: ACETAMINOPHEN 325 MG TABLET PO PRN (09:54)
--- NOTE | 2017-07-11 12:40 | PDOC PROGRESS REPORT ---
Subjective Progress Note for:: 07/11/17 Subjective:: Complains of right foot pain. Reason For Visit: DM FOOT DM, SCHIZOPHRENIA Physical Exam Vital Signs: Temp Pulse Resp BP Pulse Ox 98.2 F 96 15 173/68 H 100 07/11/17 10:11 07/11/17 10:11 07/11/17 11:02 07/11/17 11:02 07/11/17 11:02 General appearance: PRESENT: no acute distress Eye exam: PRESENT: conjunctiva pink. ABSENT: scleral icterus Neck exam: ABSENT: JVD Respiratory exam: PRESENT: clear to auscultation manuel. ABSENT: rales, rhonchi, wheezes Cardiovascular exam: PRESENT: RRR. ABSENT: diastolic murmur, rubs, systolic murmur GI/Abdominal exam: PRESENT: normal bowel sounds, soft. ABSENT: distended, guarding, mass, organolmegaly, rebound, tenderness Extremities exam: PRESENT: other - Right foot has a dressing in place on the lateral side. ABSENT: calf tenderness, clubbing, pedal edema Neurological exam: PRESENT: alert, awake, oriented to person, oriented to place , oriented to time, oriented to situation, CN II-XII grossly intact. ABSENT: motor sensory deficit Psychiatric exam: PRESENT: appropriate affect Skin exam: PRESENT: other - Open wound on the right lateral foot. Results Impressions: Foot X-Ray 07/10/17 22:30 IMPRESSION: Absence of the right fifth digit. Mild deformity of the right fourth metatarsus probably indicates prior injury; differential diagnosis includes chronic osteomyelitis of the right fourth metatarsus. 2011 [employer]- All Rights Reserved Assessment & Plan - Diagnosis (1) Diabetic foot ulcer Qualifiers: Diabetic foot ulcer location: toe Diabetes mellitus type: other specified ( including VISHNU) Laterality: right Non-pressure ulcer stage: unspecified non- pressure ulcer stage Qualified Code(s): E13.621 - Other specified diabetes mellitus with foot ulcer; L97.519 - Non-pressure chronic ulcer of other part of right foot with unspecified severity; L97.519 - Non-pressure chronic ulcer of other part of right foot with unspecified severity; L97.519 - Non-pressure chronic ulcer of other part of right foot with unspecified severity; L97.519 - Non-pressure chronic ulcer of other part of right foot with unspecified severity Is this a current diagnosis for this admission?: Yes Plan: Patient has been started on Augmentin and Levaquin. Surgery has been consulted. (2) Chronic kidney disease, stage 3 (moderate) Is this a current diagnosis for this admission?: Yes Plan: Patient is euvolemic on exam today. (3) Hyperlipidemia Is this a current diagnosis for this admission?: Yes (4) Hypertension Qualifiers: Hypertension type: essential hypertension Qualified Code(s): I10 - Essential (primary) hypertension Is this a current diagnosis for this admission?: Yes (5) Peripheral neuropathy Qualifiers: Peripheral neuropathy type: polyneuropathy, unspecified Qualified Code(s): G62.9 - Polyneuropathy, unspecified Is this a current diagnosis for this admission?: Yes (6) Uncontrolled type 2 diabetes mellitus Qualifiers: Diabetes mellitus complication status: with hyperglycemia Diabetes mellitus half-way insulin use: with long term care administrator use Qualified Code(s): E11.65 - Type 2 diabetes mellitus with hyperglycemia; Z79.4 - terminal press operator (current) use of insulin; Z79.4 - terminal press operator (current) use of insulin; Z79.4 - [facility] ( current) use of insulin; Z79.4 - [facility] (current) use of insulin Is this a current diagnosis for this admission?: Yes Plan: Continue with sliding scale insulin. - Time Time Spent with patient: 15-24 minutes - Inpatient Certification Medical Necessity: Need Close Monitoring Due to Risk of Patient Decompensation
[2017-07-11] MEDS: OXYCODONE HCL IR 5 MG TABLET PO PRN (13:55)
--- NOTE | 2017-07-11 15:12 | PSYCHOLOGICAL NOTE ---
Psych Note - Psych Note Psych Note: Reason for Consult:Concerns of Delusions Consent Permissions: None Given LEEANNE WYLIE is a 56 year old male with a past medical history of diabetes, diabetic foot ulcer with right foot osteomyelitis, hypertension, stage III chronic kidney disease, bladder mass who is homeless. Patient was hospitalized on May 01, 2017 for amputation of the right fifth toe and metatarsal debridement who is receiving treatment including wound VAC as an inpatient until July 08 when he became belligerent and threatening against medical staff resulting in leaving AGAINST MEDICAL ADVICE. He has subsequently been arrested by [employer] and brought to the emergency room for evaluation of a malodorous right foot ulcer. Patient disclosed that his health is not doing well. He disclosed his foot hurts and his eye also hurts. The patient stated that he is hoping after his surgery, his food will be feeling better. He stated that his eye is in pain because "there is blood in the back on my eye." He disclosed that he has diabetes which has caused his medical issues. Patient is alert and orientated to person, place, time and circumstance. Mood is euthymic with congruent affect. Patient denies suicidal and homicidal ideation. Delusions are absent and behaviors congruent with intact reality based presentation i.e. organized, linear and rational thinking. Eye contact was well-maintained. Conversational speech was within normal rate, tone and prosody. Intellectual abilities appear to be within the average range. Attention and concentration are good. Insight, judgment, impulse control are historically poor. Diagnosis: V60.0 (Z59.0) Homelessness V63.9 (Z75.3) Unavailability or inaccessibility of health care facilities R/O Antisocial Personality Disorder Multiple significant medical issues (Uncontrolled diabetes II, Acute renal Failure, HTN, Hyperlipidemia) Impression/Plan: Patient is considered psychologically cleared. Patient does not meet IVC criteria per [place] GS 122C. Patient's presentation is not congruent with psychosis; thought processes organized and linear, eye contact was well maintained, and conversational speech was within normal rate tone and prosody. It is also noted the patient was admitted to this hospital from May 02, 2017 until July 08, 2017. During that visit, the patient consistently demonstrated organized and linear thought processes to hospital staff and was evaluated by the Behavioral Health Team. Patient does not have a known history or shown any indications of psychosis (ie. hallucinations or delusions). Thank you for this consult, if there are any further concerns please re-consult.
[2017-07-11] MEDS: HEPARIN SOD (PORCINE) 5,000 UNIT/ML 1 ML SYRINGE SUBCUT SCH (16:37)
[2017-07-12] MEDS: HEPARIN SOD (PORCINE) 5,000 UNIT/ML 1 ML SYRINGE SUBCUT SCH ×3 (00:10→14:19)
[2017-07-12] MEDS: LEVOFLOXACIN 500 MG/D5W RTU 500 MG/100 ML RTUPB IV SCH (00:11)
[2017-07-12] MEDS: OXYCODONE HCL IR 5 MG TABLET PO PRN ×3 (00:11→17:15)
[2017-07-12] MEDS: AMOXICILLIN TR/POT CLAVULANATE 500-125 MG TAB PO SCH ×2 (00:11→10:33)
[2017-07-12 05:07] LABS: ABSOLUTE EOSINOPHILS # (AUTO) 0.1 10^3/uL (0.0-0.6); ABSOLUTE LYMPHOCYTES (AUTO) 1.8 10^3/uL (0.5-4.7); ABSOLUTE MONOCYTES (AUTO) 0.6 10^3/uL (0.1-1.4); ABSOLUTE NEUT (AUTO) 3.5 10^3/uL (1.7-8.2); BASOPHILS % (AUTO) 0.7 % (0-2); HEMATOCRIT 38.1 % (37.9-51.0); HEMOGLOBIN 12.4 g/dL (13.5-17.0); LYMPHOCYTES % (AUTO) 29.6 % (13-45); MEAN CORPUSCULAR HGB CONC 32.6 g/dL (32.0-36.0); MEAN CORPUSCULAR VOLUME 86 fl (80-97); MONOCYTES % (AUTO) 10.3 % (3-13); PLATELET COUNT 206 10^3/uL (150-450); RED BLOOD COUNT 4.44 10^6/uL (4.35-5.55); RED CELL DISTRIBUTION WIDTH 14.8 % (11.5-14.0); SEGMENTED NEUTROPHILS % (AUTO) 57.4 % (42-78); TOTAL CELLS COUNTED % (AUTO) 100 %; WHITE BLOOD COUNT 6.2 10^3/uL (4.0-10.5)
[2017-07-12 05:39] LABS: ANION GAP 11 (5-19); BLOOD UREA NITROGEN 22 mg/dL (7-20); CALCIUM 9.8 mg/dL (8.4-10.2); CARBON DIOXIDE 20 mmol/L (22-30); CHLORIDE 106 mmol/L (98-107); GLUCOSE 194 mg/dL (75-110); POTASSIUM 4.5 mmol/L (3.6-5.0); SODIUM 137.3 mmol/L (137-145)
[2017-07-12] MEDS: ACETAMINOPHEN 325 MG TABLET PO PRN ×2 (06:28→17:15)
[2017-07-12] MEDS: AMLODIPINE BESYLATE 5 MG TABLET PO SCH (10:33)
[2017-07-12] MEDS: ARIPIPRAZOLE 5 MG TABLET PO SCH ×2 (10:33→17:16)
[2017-07-12] MEDS: DOCUSATE SODIUM 100 MG CAPSULE PO SCH ×2 (10:33→17:16)
--- NOTE | 2017-07-12 12:44 | PDOC PROGRESS REPORT ---
Subjective Progress Note for:: 07/12/17 Subjective:: Complains of right foot pain. Reason For Visit: DM FOOT DM, SCHIZOPHRENIA Physical Exam Vital Signs: Temp Pulse Resp BP Pulse Ox 98.5 F 70 16 189/86 H 95 07/12/17 12:00 07/12/17 12:00 07/12/17 12:00 07/12/17 12:00 07/12/17 12:00 Intake & Output 07/11/17 07/12/17 07/13/17 06:59 06:59 06:59 Intake Total 640 Balance 640 Weight 77.2 kg General appearance: PRESENT: no acute distress Eye exam: PRESENT: conjunctiva pink. ABSENT: scleral icterus Mouth exam: PRESENT: moist, tongue midline Neck exam: ABSENT: JVD Respiratory exam: PRESENT: clear to auscultation manuel. ABSENT: rales, rhonchi, wheezes Cardiovascular exam: PRESENT: RRR. ABSENT: diastolic murmur, rubs, systolic murmur GI/Abdominal exam: PRESENT: normal bowel sounds, soft. ABSENT: distended, guarding, mass, organolmegaly, rebound, tenderness Extremities exam: ABSENT: calf tenderness, clubbing, pedal edema Neurological exam: PRESENT: alert, awake, oriented to person, oriented to place , oriented to time, oriented to situation, CN II-XII grossly intact. ABSENT: motor sensory deficit Psychiatric exam: PRESENT: appropriate affect Skin exam: PRESENT: other - Dressing in place on the right lateral foot. Results Laboratory Results: 07/12/17 04:34 07/12/17 04:34 07/12/17 07/12/17 04:34 04:34 WBC 6.2 RBC 4.44 Hgb 12.4 L Hct 38.1 MCV 86 MCH 28.0 MCHC 32.6 RDW 14.8 H Plt Count 206 Seg Neutrophils % 57.4 Lymphocytes % 29.6 Monocytes % 10.3 Eosinophils % 2.0 Basophils % 0.7 Absolute Neutrophils 3.5 Absolute Lymphocytes 1.8 Absolute Monocytes 0.6 Absolute Eosinophils 0.1 Absolute Basophils 0.0 Sodium 137.3 Potassium 4.5 Chloride 106 Carbon Dioxide 20 L Anion Gap 11 BUN 22 H Creatinine 1.26 H Est GFR ( Amer) > 60 Est GFR (Non-Af Amer) 59 L Glucose 194 H Calcium 9.8 Impressions: Foot X-Ray 07/10/17 22:30 IMPRESSION: Absence of the right fifth digit. Mild deformity of the right fourth metatarsus probably indicates prior injury; differential diagnosis includes chronic osteomyelitis of the right fourth metatarsus. 2010 [employer]- All Rights Reserved Assessment & Plan - Diagnosis (1) Diabetic foot ulcer Qualifiers: Diabetic foot ulcer location: toe Diabetes mellitus type: other specified ( including VISHNU) Laterality: right Non-pressure ulcer stage: unspecified non- pressure ulcer stage Qualified Code(s): E13.621 - Other specified diabetes mellitus with foot ulcer; L97.519 - Non-pressure chronic ulcer of other part of right foot with unspecified severity; L97.519 - Non-pressure chronic ulcer of other part of right foot with unspecified severity; L97.519 - Non-pressure chronic ulcer of other part of right foot with unspecified severity; L97.519 - Non-pressure chronic ulcer of other part of right foot with unspecified severity Is this a current diagnosis for this admission?: Yes Plan: Patient has been started on Augmentin and Levaquin. Surgery has been consulted. (2) Chronic kidney disease, stage 3 (moderate) Is this a current diagnosis for this admission?: Yes Plan: Patient is euvolemic on exam today. (3) Hyperlipidemia Is this a current diagnosis for this admission?: Yes (4) Hypertension Qualifiers: Hypertension type: essential hypertension Qualified Code(s): I10 - Essential (primary) hypertension Is this a current diagnosis for this admission?: Yes Plan: Patient's blood pressure has been elevated we will start him on Norvasc. (5) Peripheral neuropathy Qualifiers: Peripheral neuropathy type: polyneuropathy, unspecified Qualified Code(s): G62.9 - Polyneuropathy, unspecified Is this a current diagnosis for this admission?: Yes (6) Uncontrolled type 2 diabetes mellitus Qualifiers: Diabetes mellitus complication status: with hyperglycemia Diabetes mellitus rat exterminator insulin use: with residential use Qualified Code(s): E11.65 - Type 2 diabetes mellitus with hyperglycemia; Z79.4 - manager long term care (current) use of insulin; Z79.4 - manager long term care (current) use of insulin; Z79.4 - manager long term care ( current) use of insulin; Z79.4 - correction (current) use of insulin Is this a current diagnosis for this admission?: Yes Plan: Continue with sliding scale insulin. - Time Time Spent with patient: 25-34 minutes - Inpatient Certification Medical Necessity: Need Close Monitoring Due to Risk of Patient Decompensation
--- NOTE | 2017-07-12 17:25 | PDOC CONSULTATION ---
Consultation Consult Date: 07/12/17 Consult reason:: right foot foul smelling postsurgical wound History of Present Illness Admission Date/PCP: 07/11/17 01:50 Patient complains of: foul smelling righ foot wound History of Present Illness: patient is a 56 y/o homeless male, with diabetes, diabetic neuropathy, recent right foot 5th digit amputation and WoundVac placement (April 2017). The patient was recently hospitalized on July 03, 2017 for hematuria, evaluated by the Urologist, and found to have a 2 cm bladder mass; however, the patient left AMA to then return to the hospital on 08/11/17 with a foul smelling right foot wound with drainage. An Xray has been done demonstrating a possible osteomyelitis focus in the distal head of the 4th metatarsal bone. G+He has a hx of poor compliance, he is homeless, and is unable to care for himself Past Medical History Cardiac Medical History: Reports: Hyperlipidema, Hypertension Endocrine Medical History: Reports: Diabetes Mellitus Type 1, Diabetes Mellitus Type 2 Musculoskeltal Medical History: Reports: Other - Right foot ulcer with osteonecrosis Psychiatric Medical History: Reports: Depression Past Surgical History Past Surgical History: Reports: Other - Umbilical hernia repair, amputation right 5th digit with 5t metatarsal bone Social History Lives with: Homeless, Other Smoking Status: Current Every Day Smoker Frequency of Alcohol Use: None Hx Recreational Drug Use: No Drugs: None Hx Prescription Drug Abuse: No - Advance Directive Resuscitation Status: Full Code Family History Family History: Reviewed & Not Pertinent Parental Family History Reviewed: No Children Family History Reviewed: No Sibling(s) Family History Reviewed.: No Medication/Allergy Home Medications: No Home Medications 07/11/17 Allergies/Adverse Reactions: insulin regular [From Novolin 70/30] Allergy (Unknown, Verified 07/11/17 15:30) insulin isophane (NPH) [From Novolin 70/30] Allergy (Verified 07/11/17 15:30) metformin Allergy (Verified 07/11/17 15:30) Physical Exam Vital Signs: Temp Pulse Resp BP Pulse Ox 98.5 F 70 16 189/86 H 95 07/12/17 12:00 07/12/17 12:00 07/12/17 12:00 07/12/17 12:00 07/12/17 12:00 Intake & Output 07/11/17 07/12/1707/13/18 06:59 06:59 06:59 Intake Total 640 Balance 640 Weight 77.2 kg General appearance: PRESENT: no acute distress Head exam: PRESENT: atraumatic Neck exam: PRESENT: full ROM Respiratory exam: PRESENT: clear to auscultation manuel Cardiovascular exam: PRESENT: RRR Vascular exam: PRESENT: other - absent palpable DT/PT pulses GI/Abdominal exam: PRESENT: soft Extremities exam: PRESENT: other - right foot: partially open, foul smelling surgical wound lateral aspect, missing 5ht toe and 5th metatarsal, diffuse moderate edema of entire foot, decreased sensation at touch of plantar surface Results Laboratory Results: 07/12/17 04:34 07/12/17 04:34 07/12/17 07/12/17 04:34 04:34 WBC 6.2 RBC 4.44 Hgb 12.4 L Hct 38.1 MCV 86 MCH 28.0 MCHC 32.6 RDW 14.8 H Plt Count 206 Seg Neutrophils % 57.4 Lymphocytes % 29.6 Monocytes % 10.3 Eosinophils % 2.0 Basophils % 0.7 Absolute Neutrophils 3.5 Absolute Lymphocytes 1.8 Absolute Monocytes 0.6 Absolute Eosinophils 0.1 Absolute Basophils 0.0 Sodium 137.3 Potassium 4.5 Chloride 106 Carbon Dioxide 20 L Anion Gap 11 BUN 22 H Creatinine 1.26 H Est GFR ( Amer) > 60 Est GFR (Non-Af Amer) 59 L Glucose 194 H Calcium 9.8 Impressions: Foot X-Ray 07/10/17 22:30 IMPRESSION: Absence of the right fifth digit. Mild deformity of the right fourth metatarsus probably indicates prior injury; differential diagnosis includes chronic osteomyelitis of the right fourth metatarsus. 2011 [employer]- All Rights Reserved Assessment & Plan - Diagnosis (1) Diabetic foot ulcer Qualifiers: Diabetic foot ulcer location: toe Diabetes mellitus type: type 1 Laterality: right Non-pressure ulcer stage: unspecified non-pressure ulcer stage Qualified Code(s): E10.621 - Type 1 diabetes mellitus with foot ulcer; L97.519 - Non-pressure chronic ulcer of other part of right foot with unspecified severity; L97.519 - Non-pressure chronic ulcer of other part of right foot with unspecified severity; L97.519 - Non-pressure chronic ulcer of other part of right foot with unspecified severity; L97.519 - Non-pressure chronic ulcer of other part of right foot with unspecified severity Is this a current diagnosis for this admission?: Yes (2) Osteomyelitis Qualifiers: Osteomyelitis type: unspecified type Osteomyelitis location: foot Laterality: right Qualified Code(s): M86.9 - Osteomyelitis, unspecified Is this a current diagnosis for this admission?: Yes (3) Bladder mass Is this a current diagnosis for this admission?: Yes (4) Diabetic foot infection Is this a current diagnosis for this admission?: Yes - Plan Summary Plan Summary: A/ poorly compliant patient with right foot non healing surgical wound s/p 5th toe and metatarsal partial amputation Foul smelling drainage from right foot would X-ray foot shows possible osteomyelitis of the right 4th distal metatarsal head Plan: MRI right foot to evaluate the extent of osteomyelitis Afterward, patient will be approached with surgical options, if any IV antibiotics Topical antibiotic to wound
[2017-07-12] MEDS ORDERED: NEOMY/BACITRAC ZN/POLY OINT 15 GM TP SCH (17:30)
[2017-07-12] MEDS ORDERED: DEXTROSE 5% IV SCH (18:00)
[2017-07-12] MEDS ORDERED: CLINDAMYCIN 600 MG/D5W RTU 600 MG/50 ML RTUPB IV SCH (18:00)
[2017-07-12] MEDS ORDERED: CLINDAMYCIN PHOSPHATE IV SCH (18:00)
[2017-07-12] MEDS ORDERED: WATER IV SCH (18:00)
[2017-07-12] MEDS: INSULIN LISPRO 100 UNIT/ML 3 ML VIAL SUBCUT PRN (18:55)
[2017-07-12] MEDS ORDERED: CLINDAMYCIN 600 MG/D5W RTU 600 MG/50 ML RTUPB IV ONE (19:00)
[2017-07-13] MEDS: AMOXICILLIN TR/POT CLAVULANATE 500-125 MG TAB PO SCH ×3 (01:09→21:05)
[2017-07-13] MEDS: LEVOFLOXACIN 500 MG/D5W RTU 500 MG/100 ML RTUPB IV SCH (01:09)
[2017-07-13] MEDS: HEPARIN SOD (PORCINE) 5,000 UNIT/ML 1 ML SYRINGE SUBCUT SCH ×4 (01:09→21:05)
[2017-07-13] MEDS: CLINDAMYCIN 600 MG/D5W RTU 600 MG/50 ML RTUPB IV SCH ×3 (02:16→17:35)
[2017-07-13] MEDS: OXYCODONE HCL IR 5 MG TABLET PO PRN ×4 (03:09→23:23)
[2017-07-13] MEDS: ACETAMINOPHEN 325 MG TABLET PO PRN (08:12)
[2017-07-13] MEDS: INSULIN LISPRO 100 UNIT/ML 3 ML VIAL SUBCUT PRN ×3 (08:12→17:37)
[2017-07-13] MEDS: AMLODIPINE BESYLATE 5 MG TABLET PO SCH (09:12)
[2017-07-13] MEDS: DOCUSATE SODIUM 100 MG CAPSULE PO SCH ×2 (09:12→17:35)
[2017-07-13] MEDS: ARIPIPRAZOLE 5 MG TABLET PO SCH ×2 (09:13→17:34)
--- NOTE | 2017-07-13 10:29 | PDOC PROGRESS REPORT ---
Subjective Progress Note for:: 07/13/17 Reason For Visit: DM FOOT DM, SCHIZOPHRENIA Patient has no complaints this morning. Sitting in a chair with legs elevated Physical Exam Vital Signs: Temp Pulse Resp BP Pulse Ox 98.7 F 64 18 181/73 H 100 07/13/17 07:50 07/13/17 07:50 07/13/17 07:50 07/13/17 07:50 07/13/17 07:50 Intake & Output 07/12/17 07/13/17 07/14/17 06:59 06:59 06:59 Intake Total 640 2050 Balance 640 2050 Weight 77.2 kg 77.2 kg General appearance: PRESENT: no acute distress, other - I asked the patient to take off his sock and he said he could not reach his foot Musculoskeletal exam: PRESENT: other - Patient has bounding dorsalis pedis bilaterally: No edema; the lateral right foot wound is clean granulating approximately 0.5 x 5 cm, no foul smell; unable to express any pus. Results Laboratory Results: 07/12/17 04:34 07/12/17 04:34 Impressions: Foot X-Ray 07/10/17 22:30 IMPRESSION: Absence of the right fifth digit. Mild deformity of the right fourth metatarsus probably indicates prior injury; differential diagnosis includes chronic osteomyelitis of the right fourth metatarsus. 2010 [employer]- All Rights Reserved Assessment & Plan - Diagnosis (1) Diabetic foot ulcer Qualifiers: Diabetic foot ulcer location: toe Diabetes mellitus type: type 1 Laterality: right Non-pressure ulcer stage: unspecified non-pressure ulcer stage Qualified Code(s): E10.621 - Type 1 diabetes mellitus with foot ulcer; L97.519 - Non-pressure chronic ulcer of other part of right foot with unspecified severity; L97.519 - Non-pressure chronic ulcer of other part of right foot with unspecified severity; L97.519 - Non-pressure chronic ulcer of other part of right foot with unspecified severity; L97.519 - Non-pressure chronic ulcer of other part of right foot with unspecified severity Is this a current diagnosis for this admission?: Yes Plan: She was now close to 2 months status post right foot debridement with ray amputation,: The patient is homeless and incapable of receiving consistent outpatient care. Furthermore his schizophrenia impairs his noncompliance capacity. Currently the foot and the wound looked quite good. X-ray just postoperative changes, callus, cannot rule out chronic osteomyelitis. Given the patient's high level of foot function, I would suggest leaving the foot as is, and hoping for the best rather than pursuing possible chronic osteo- myelitis with aggressive MRI imaging, intravenous antibiotics etc. Discussed the above with Dr. Giordano, hospitalist and he is in agreement
--- NOTE | 2017-07-13 14:30 | PDOC PROGRESS REPORT ---
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 Patient had 1/5 ray amputation. He had a wound VAC on for quite some time. He improved and was ready for discharge but he is homeless. Last week he threatened a physician and left AGAINST MEDICAL ADVICE. Patient was arrested by local police and brought back into the emergency room. He is admitted for continued problems with his right foot. Reason For Visit: DM FOOT DM, SCHIZOPHRENIA Physical Exam Vital Signs: Temp Pulse Resp BP Pulse Ox 98.3 F 65 19 167/76 H 100 07/13/17 11:42 07/13/17 11:42 07/13/17 11:42 07/13/17 11:42 07/13/17 11:42 Intake & Output 07/12/17 07/13/17 07/14/17 06:59 06:59 06:59 Intake Total 640 2050 Balance 640 2050 Weight 77.2 kg 77.2 kg General appearance: PRESENT: no acute distress Eye exam: PRESENT: conjunctiva pink. ABSENT: scleral icterus Mouth exam: PRESENT: moist, tongue midline Neck exam: ABSENT: JVD Respiratory exam: PRESENT: clear to auscultation manuel. ABSENT: rales, rhonchi, wheezes Cardiovascular exam: PRESENT: RRR. ABSENT: diastolic murmur, rubs, systolic murmur GI/Abdominal exam: PRESENT: normal bowel sounds, soft. ABSENT: distended, guarding, mass, organolmegaly, rebound, tenderness Extremities exam: PRESENT: other - Dressing on the right lateral foot.. ABSENT : calf tenderness, clubbing, pedal edema Neurological exam: PRESENT: alert, awake, oriented to person, oriented to place , oriented to time, oriented to situation, CN II-XII grossly intact. ABSENT: motor sensory deficit Psychiatric exam: PRESENT: appropriate affect Skin exam: PRESENT: other - Good granulation tissue on the right lateral foot. Results Laboratory Results: 07/12/17 04:34 07/12/17 04:34 Impressions: Foot X-Ray 07/10/17 22:30 IMPRESSION: Absence of the right fifth digit. Mild deformity of the right fourth metatarsus probably indicates prior injury; differential diagnosis includes chronic osteomyelitis of the right fourth metatarsus. 2011 [employer]- All Rights Reserved Assessment & Plan - Diagnosis (1) Diabetic foot ulcer Qualifiers: Diabetic foot ulcer location: toe Diabetes mellitus type: type 1 Laterality: right Non-pressure ulcer stage: unspecified non-pressure ulcer stage Qualified Code(s): E10.621 - Type 1 diabetes mellitus with foot ulcer; L97.519 - Non-pressure chronic ulcer of other part of right foot with unspecified severity; L97.519 - Non-pressure chronic ulcer of other part of right foot with unspecified severity; L97.519 - Non-pressure chronic ulcer of other part of right foot with unspecified severity; L97.519 - Non-pressure chronic ulcer of other part of right foot with unspecified severity Is this a current diagnosis for this admission?: Yes Plan: Patient has been started on Augmentin and Levaquin. Surgery has evaluated the patient and agree with just watching and antibiotics orally. (2) Chronic kidney disease, stage 3 (moderate) Is this a current diagnosis for this admission?: Yes Plan: Patient is euvolemic on exam today. (3) Hyperlipidemia Is this a current diagnosis for this admission?: Yes (4) Hypertension Qualifiers: Hypertension type: essential hypertension Qualified Code(s): I10 - Essential (primary) hypertension Is this a current diagnosis for this admission?: Yes Plan: Patient's blood pressure has been elevated. Was started on Norvasc yesterday. (5) Peripheral neuropathy Qualifiers: Peripheral neuropathy type: polyneuropathy, unspecified Qualified Code(s): G62.9 - Polyneuropathy, unspecified Is this a current diagnosis for this admission?: Yes (6) Uncontrolled type 2 diabetes mellitus Qualifiers: Diabetes mellitus complication status: with hyperglycemia Diabetes mellitus care home insulin use: with intermission coordinator use Qualified Code(s): E11.65 - Type 2 diabetes mellitus with hyperglycemia; Z79.4 - termite renewal inspector (current) use of insulin; Z79.4 - [facility] (current) use of insulin; Z79.4 - [facility] ( current) use of insulin; Z79.4 - termite renewal inspector (current) use of insulin Is this a current diagnosis for this admission?: Yes Plan: Continue with sliding scale insulin. - Time Time Spent with patient: 25-34 minutes - Inpatient Certification Medical Necessity: Need Close Monitoring Due to Risk of Patient Decompensation - Plan Summary Plan Summary: Patient is homeless. The patient is having difficulty finding placement given his criminal record.
[2017-07-13] MEDS: LEVOFLOXACIN 500 MG TABLET PO SCH (21:05)
[2017-07-14] MEDS ORDERED: HYDRALAZINE HCL INJ/PF 20 MG/1 ML SDV ONE (00:07)
[2017-07-14] MEDS ORDERED: HYDRALAZINE HCL INJ/PF 20 MG/1 ML SDV IV PRN (00:40)
[2017-07-14] MEDS: CLINDAMYCIN 600 MG/D5W RTU 600 MG/50 ML RTUPB IV SCH ×3 (01:17→17:35)
[2017-07-14 05:00] LABS: ABSOLUTE EOSINOPHILS # (AUTO) 0.1 10^3/uL (0.0-0.6); ABSOLUTE LYMPHOCYTES (AUTO) 1.4 10^3/uL (0.5-4.7); ABSOLUTE MONOCYTES (AUTO) 0.5 10^3/uL (0.1-1.4); ABSOLUTE NEUT (AUTO) 4.3 10^3/uL (1.7-8.2); BASOPHILS % (AUTO) 0.3 % (0-2); EOSINOPHILS % (AUTO) 1.7 % (0-6); HEMOGLOBIN 12.5 g/dL (13.5-17.0); LYMPHOCYTES % (AUTO) 22.1 % (13-45); MEAN CORPUSCULAR HEMOGLOBIN 28.2 pg (27.0-33.4); MEAN CORPUSCULAR HGB CONC 32.9 g/dL (32.0-36.0); MEAN CORPUSCULAR VOLUME 86 fl (80-97); MONOCYTES % (AUTO) 8.2 % (3-13); PLATELET COUNT 208 10^3/uL (150-450); RED BLOOD COUNT 4.43 10^6/uL (4.35-5.55); RED CELL DISTRIBUTION WIDTH 14.6 % (11.5-14.0); SEGMENTED NEUTROPHILS % (AUTO) 67.7 % (42-78); TOTAL CELLS COUNTED % (AUTO) 100 %; WHITE BLOOD COUNT 6.3 10^3/uL (4.0-10.5)
[2017-07-14 05:17] LABS: ANION GAP 10 (5-19); BLOOD UREA NITROGEN 33 mg/dL (7-20); CALCIUM 9.7 mg/dL (8.4-10.2); CARBON DIOXIDE 21 mmol/L (22-30); CHLORIDE 104 mmol/L (98-107); GLUCOSE 274 mg/dL (75-110); POTASSIUM 4.7 mmol/L (3.6-5.0); SODIUM 134.7 mmol/L (137-145)
[2017-07-14] MEDS: HEPARIN SOD (PORCINE) 5,000 UNIT/ML 1 ML SYRINGE SUBCUT SCH ×3 (06:32→22:28)
[2017-07-14] MEDS: INSULIN LISPRO 100 UNIT/ML 3 ML VIAL SUBCUT PRN ×4 (06:44→22:29)
[2017-07-14] MEDS: OXYCODONE HCL IR 5 MG TABLET PO PRN ×2 (08:16→17:34)
[2017-07-14] MEDS: LACTULOSE SYRUP 20 GM/30 ML UDCUP PO SCH ×2 (09:31→17:34)
[2017-07-14] MEDS: DOCUSATE SODIUM 100 MG CAPSULE PO SCH ×2 (09:31→17:35)
[2017-07-14] MEDS: AMOXICILLIN TR/POT CLAVULANATE 500-125 MG TAB PO SCH ×2 (09:31→22:27)
[2017-07-14] MEDS: ARIPIPRAZOLE 5 MG TABLET PO SCH ×2 (09:31→17:34)
[2017-07-14] MEDS: AMLODIPINE BESYLATE 5 MG TABLET PO SCH (09:32)
--- NOTE | 2017-07-14 17:10 | PDOC PROGRESS REPORT ---
Subjective Progress Note for:: 07/14/17 Subjective:: no complaints Reason For Visit: DM FOOT DM, SCHIZOPHRENIA Physical Exam Vital Signs: Temp Pulse Resp BP Pulse Ox 98.5 F 65 18 147/58 H 98 07/14/17 16:16 07/14/17 16:16 07/14/17 16:16 07/14/17 16:16 07/14/17 16:16 Intake & Output 07/13/17 07/14/17 07/15/17 06:59 06:59 06:59 Intake Total 2049 1942 Output Total 1100 Balance 2049 843 Weight 77.2 kg 83.5 kg General appearance: PRESENT: no acute distress Head exam: PRESENT: atraumatic, normocephalic Respiratory exam: PRESENT: clear to auscultation manuel. ABSENT: rales, rhonchi, wheezes Cardiovascular exam: PRESENT: RRR. ABSENT: diastolic murmur, rubs, systolic murmur Neurological exam: PRESENT: alert, awake, oriented to person, oriented to place , oriented to time, oriented to situation, CN II-XII grossly intact. ABSENT: motor sensory deficit Psychiatric exam: PRESENT: appropriate affect, normal mood. ABSENT: homicidal ideation, suicidal ideation Skin exam: PRESENT: other - Good granulation tissue on the right lateral foot Results Laboratory Results: 07/14/17 04:04 07/14/17 04:04 07/14/17 07/14/17 04:04 04:04 WBC 6.3 RBC 4.43 Hgb 12.5 L Hct 38.0 MCV 86 MCH 28.2 MCHC 32.9 RDW 14.6 H Plt Count 208 Seg Neutrophils % 67.7 Lymphocytes % 22.1 Monocytes % 8.2 Eosinophils % 1.7 Basophils % 0.3 Absolute Neutrophils 4.3 Absolute Lymphocytes 1.4 Absolute Monocytes 0.5 Absolute Eosinophils 0.1 Absolute Basophils 0.0 Sodium 134.7 L Potassium 4.7 Chloride 104 Carbon Dioxide 21 L Anion Gap 10 BUN 33 H Creatinine 1.48 H Est GFR ( Amer) 59 L Est GFR (Non-Af Amer) 49 L Glucose 274 H Calcium 9.7 Impressions: Foot X-Ray 07/10/17 22:30 IMPRESSION: Absence of the right fifth digit. Mild deformity of the right fourth metatarsus probably indicates prior injury; differential diagnosis includes chronic osteomyelitis of the right fourth metatarsus. 2010 [facility] [employer] [place]- All Rights Reserved Assessment & Plan - Diagnosis (1) Diabetic foot ulcer Qualifiers: Diabetic foot ulcer location: toe Diabetes mellitus type: type 1 Laterality: right Non-pressure ulcer stage: unspecified non-pressure ulcer stage Qualified Code(s): E10.621 - Type 1 diabetes mellitus with foot ulcer; L97.519 - Non-pressure chronic ulcer of other part of right foot with unspecified severity; L97.519 - Non-pressure chronic ulcer of other part of right foot with unspecified severity; L97.519 - Non-pressure chronic ulcer of other part of right foot with unspecified severity; L97.519 - Non-pressure chronic ulcer of other part of right foot with unspecified severity Is this a current diagnosis for this admission?: Yes Plan: Continue wet-to-dry resting changes. Continue antibiotics. (2) Chronic kidney disease, stage 3 (moderate) Is this a current diagnosis for this admission?: Yes Plan: Stable. (3) Hypertension Qualifiers: Hypertension type: essential hypertension Qualified Code(s): I10 - Essential (primary) hypertension Is this a current diagnosis for this admission?: Yes Plan: BP okay. He was started on Norvasc 2 days ago. Continue to monitor for now. (4) Peripheral neuropathy Qualifiers: Peripheral neuropathy type: polyneuropathy, unspecified Qualified Code(s): G62.9 - Polyneuropathy, unspecified Is this a current diagnosis for this admission?: Yes Plan: Stable. 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 - Time Time Spent with patient: 15-24 minutes Medications reviewed and adjusted accordingly: Yes Anticipated discharge: Home
[2017-07-14] MEDS ORDERED: INSULIN GLARGINE,HUM.REC.ANLOG 300 UNIT/3 ML INSULN.PEN SUBCUT SCH (22:00)
[2017-07-14] MEDS: LEVOFLOXACIN 500 MG TABLET PO SCH (22:28)
[2017-07-15] MEDS: CLINDAMYCIN 600 MG/D5W RTU 600 MG/50 ML RTUPB IV SCH ×3 (02:30→18:23)
[2017-07-15] MEDS: HEPARIN SOD (PORCINE) 5,000 UNIT/ML 1 ML SYRINGE SUBCUT SCH ×3 (05:37→21:50)
[2017-07-15] MEDS: INSULIN LISPRO 100 UNIT/ML 3 ML VIAL SUBCUT PRN ×2 (06:53→18:23)
[2017-07-15] MEDS: OXYCODONE HCL IR 5 MG TABLET PO PRN ×2 (10:27→21:47)
[2017-07-15] MEDS: AMOXICILLIN TR/POT CLAVULANATE 500-125 MG TAB PO SCH ×2 (10:27→21:48)
[2017-07-15] MEDS: AMLODIPINE BESYLATE 5 MG TABLET PO SCH (10:28)
[2017-07-15] MEDS: DOCUSATE SODIUM 100 MG CAPSULE PO SCH ×2 (10:28→18:22)
[2017-07-15] MEDS: ARIPIPRAZOLE 5 MG TABLET PO SCH ×2 (10:28→18:22)
[2017-07-15] MEDS: LACTULOSE SYRUP 20 GM/30 ML UDCUP PO SCH ×2 (10:29→18:23)
--- NOTE | 2017-07-15 17:08 | PDOC PROGRESS REPORT ---
Subjective Progress Note for:: 07/15/17 Subjective:: No complaints Reason For Visit: DM FOOT DM, SCHIZOPHRENIA Physical Exam Vital Signs: Temp Pulse Resp BP Pulse Ox 98.0 F 76 19 136/68 H 96 07/15/17 16:20 07/15/17 16:20 07/15/17 16:20 07/15/17 16:20 07/15/17 16:20 Intake & Output 07/14/17 07/15/17 07/16/17 06:59 06:59 06:59 Intake Total 1943 1584 1742 Output Total 1100 Balance 843 1584 1742 Weight 83.5 kg 84.4 kg General appearance: PRESENT: no acute distress, well-developed, well-nourished Respiratory exam: PRESENT: unlabored Cardiovascular exam: PRESENT: RRR. ABSENT: systolic murmur GI/Abdominal exam: PRESENT: soft Extremities exam: PRESENT: full ROM, other - right foot is wrapped with bandage. ABSENT: calf tenderness, clubbing, pedal edema Neurological exam: PRESENT: alert, awake, oriented to person, oriented to place , oriented to time, oriented to situation, CN II-XII grossly intact. ABSENT: motor sensory deficit Psychiatric exam: PRESENT: appropriate affect, normal mood. ABSENT: homicidal ideation, suicidal ideation Results Laboratory Results: 07/14/17 04:04 07/14/17 04:04 Impressions: Foot X-Ray 07/10/17 22:30 IMPRESSION: Absence of the right fifth digit. Mild deformity of the right fourth metatarsus probably indicates prior injury; differential diagnosis includes chronic osteomyelitis of the right fourth metatarsus. 2010 [employer]- All Rights Reserved Assessment & Plan - Diagnosis (1) Diabetic foot ulcer Qualifiers: Diabetic foot ulcer location: toe Diabetes mellitus type: type 1 Laterality: right Non-pressure ulcer stage: unspecified non-pressure ulcer stage Qualified Code(s): E10.621 - Type 1 diabetes mellitus with foot ulcer; L97.519 - Non-pressure chronic ulcer of other part of right foot with unspecified severity; L97.519 - Non-pressure chronic ulcer of other part of right foot with unspecified severity; L97.519 - Non-pressure chronic ulcer of other part of right foot with unspecified severity; L97.519 - Non-pressure chronic ulcer of other part of right foot with unspecified severity Is this a current diagnosis for this admission?: Yes Plan: Continue wet-to-dry resting changes. Continue antibiotics. (2) Chronic kidney disease, stage 3 (moderate) Is this a current diagnosis for this admission?: Yes Plan: Stable. (3) Hypertension Qualifiers: Hypertension type: essential hypertension Qualified Code(s): I10 - Essential (primary) hypertension Is this a current diagnosis for this admission?: Yes Plan: BP okay. He was started on Norvasc 3 days ago. Continue to monitor for now. (4) Peripheral neuropathy Qualifiers: Peripheral neuropathy type: polyneuropathy, unspecified Qualified Code(s): G62.9 - Polyneuropathy, unspecified Is this a current diagnosis for this admission?: Yes Plan: Stable. 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 I'll increase it to 14 units tonight. - Time Time Spent with patient: 15-24 minutes Anticipated discharge: Home - Inpatient Certification I certify that my determination is in accordance with my understanding of Medicare's requirements for reasonable and necessary INPATIENT services [42 CFR 412.3e].: Yes
[2017-07-15] MEDS: LEVOFLOXACIN 500 MG TABLET PO SCH (21:48)
[2017-07-15] MEDS ORDERED: INSULIN GLARGINE,HUM.REC.ANLOG 300 UNIT/3 ML INSULN.PEN SUBCUT SCH (22:00)
[2017-07-16] MEDS: CLINDAMYCIN 600 MG/D5W RTU 600 MG/50 ML RTUPB IV SCH ×2 (01:13→09:24)
[2017-07-16] MEDS: HEPARIN SOD (PORCINE) 5,000 UNIT/ML 1 ML SYRINGE SUBCUT SCH (06:08)
[2017-07-16 08:24] VITALS: BP 173/83
--- NOTE | 2017-07-16 09:08 | PDOC DISCHARGE SUMMARY ---
General - Admit/Disc Date/PCP Admission Date/Primary Care Provider: 07/11/17 01:50 Discharge Date: 07/16/17 - Discharge Diagnosis (1) Diabetic foot ulcer Is this a current diagnosis for this admission?: Yes (2) Chronic kidney disease, stage 3 (moderate) Is this a current diagnosis for this admission?: Yes (3) Hypertension Is this a current diagnosis for this admission?: Yes (4) Peripheral neuropathy Is this a current diagnosis for this admission?: Yes (5) Uncontrolled type 2 diabetes mellitus Is this a current diagnosis for this admission?: Yes - Additional Information Resuscitation Status: Full Code Discharge Diet: Diabetic Discharge Activity: Activity As Tolerated Prescriptions: Insulin Glargine,Hum.rec.anlog [Lantus Insulin 100 Unit/mL] 18 unit SUBCUT QHS # 1 insuln.pen Amlodipine Besylate [Norvasc 10 mg Tablet] 10 mg PO DAILY #30 tablet Amox Tr/Potassium Clavulanate [Augmentin "500" Tablet] 1 tab PO Q12 10 Days # 20 tablet Aripiprazole [Abilify 5 mg Tablet] 10 mg PO BID #60 tablet Carvedilol [Coreg 12.5 mg Tablet] 12.5 mg PO Q12 #60 tablet Lactulose [Cephulac Syrup 20 gm/30 ml Udcup] 20 gm PO DAILY #300 udc Oxycodone HCl [Oxy-Ir 5 mg Tablet] 10 mg PO Q6 PRN #30 tablet PRN Reason: Home Medications: Amlodipine Besylate [Norvasc 10 mg Tablet] 10 mg PO DAILY #30 tablet 07/16/17 Amox Tr/Potassium Clavulanate [Augmentin "500" Tablet] 1 tab PO Q12 10 Days # 20 tablet 07/16/17 Aripiprazole [Abilify 5 mg Tablet] 10 mg PO BID #60 tablet 07/16/17 Carvedilol [Coreg 12.5 mg Tablet] 12.5 mg PO Q12 #60 tablet 07/16/17 Insulin Glargine,Hum.rec.anlog [Lantus Insulin 100 Unit/mL] 18 unit SUBCUT QHS # 1 insuln.pen 07/16/17 Lactulose [Cephulac Syrup 20 gm/30 ml Udcup] 20 gm PO DAILY #300 udc 07/16/17 Oxycodone HCl [Oxy-Ir 5 mg Tablet] 10 mg PO Q6 PRN #30 tablet 07/16/17 History of Present Illness History of Present Illness: LEEANNE WYLIE is a 56 year old male who was hospitalized at [facility] for over a month after developing osteomyelitis of the right fifth toe. During that previous hospital stay, he underwent a ray amputation of the fifth metatarsal. He had a wound VAC on for quite some time. He improved, and was ready for discharge but was homeless. Apparently he threatened a physician, and left AGAINST MEDICAL ADVICE. He was arrested by local police and brought back to the emergency department. He was again admitted for problems related to his right foot. Hospital Course Hospital Course: He was started on Augmentin and levofloxacin. Surgery was consulted to reevaluate his foot. They agree with just watching it and to provide oral antibiotics for now. His hospital stay has been uneventful. According to the nurses, he can be "loopy". Sometimes he actually refuses his insulin. He was started on Norvasc for elevated blood pressure. His renal function remained stable. Case management was involved in his care. He was provided an appointment at the wound clinic July 17. Physical Exam Vital Signs: Temp Pulse Resp BP Pulse Ox 98.0 F 74 15 173/83 H 99 07/16/17 08:00 07/16/17 08:00 07/16/17 08:00 07/16/17 08:00 07/16/17 08:00 Intake & Output 07/15/17 07/16/17 07/17/17 06:59 06:59 06:59 Intake Total 1584 1852 622 Balance 1584 1852 622 Weight 84.4 kg 83.3 kg General appearance: PRESENT: no acute distress, well-developed, well-nourished Respiratory exam: PRESENT: clear to auscultation manuel. ABSENT: rales, rhonchi, wheezes Cardiovascular exam: PRESENT: RRR. ABSENT: diastolic murmur, rubs, systolic murmur Musculoskeletal exam: PRESENT: other - Right foot remains bandaged. No foul odor. Neurological exam: PRESENT: alert, awake, oriented to person, oriented to place , oriented to time, oriented to situation, CN II-XII grossly intact. ABSENT: motor sensory deficit Psychiatric exam: PRESENT: appropriate affect, normal mood. ABSENT: homicidal ideation, suicidal ideation Results Laboratory Results: 07/14/17 04:04 07/14/17 04:04 Impressions: Foot X-Ray 07/10/17 22:30 IMPRESSION: Absence of the right fifth digit. Mild deformity of the right fourth metatarsus probably indicates prior injury; differential diagnosis includes chronic osteomyelitis of the right fourth metatarsus. 2011 [facility] [employer]- All Rights Reserved Qualifiers PATEINT BEING DISCHARGED WITH ANY OF THE FOLLOWING DIAGNOSIS?: No Plan Time Spent: Less than 30 Minutes
[2017-07-16] MEDS: INSULIN LISPRO 100 UNIT/ML 3 ML VIAL SUBCUT PRN (09:20)
[2017-07-16] MEDS: AMLODIPINE BESYLATE 5 MG TABLET PO SCH (09:21)
[2017-07-16] MEDS: ARIPIPRAZOLE 5 MG TABLET PO SCH (09:21)
[2017-07-16] MEDS: AMOXICILLIN TR/POT CLAVULANATE 500-125 MG TAB PO SCH (09:22)
[2017-07-16] MEDS: DOCUSATE SODIUM 100 MG CAPSULE PO SCH (09:23)
[2017-07-16] MEDS: LACTULOSE SYRUP 20 GM/30 ML UDCUP PO SCH (09:24)
== END 2017-07-16 11:19 | disposition home or self-care (01) | DRG 638 ==
LOC: ER 21:46 → EH 07-11 01:50 → 4N 07-11 15:46
PROVIDERS: ADMIT Internal Medicine; ATTEND Internal Medicine
DX: E11.621 Type 2 diabetes mellitus with foot ulcer (principal); M87.9 Osteonecrosis, unspecified; M86.9 Osteomyelitis, unspecified; E11.69 Type 2 diabetes mellitus with other specified complication; E11.65 Type 2 diabetes mellitus with hyperglycemia; E11.22 Type 2 diabetes mellitus with diabetic chronic kidney disease; E11.42 Type 2 diabetes mellitus with diabetic polyneuropathy; I12.9 Hypertensive chronic kidney disease with stage 1 through stage 4 chronic kidney disease, or unspecified chronic kidney disease; N18.3 Chronic kidney disease, stage 3 (moderate); E78.5 Hyperlipidemia, unspecified; N32.9 Bladder disorder, unspecified; F20.9 Schizophrenia, unspecified; F41.9 Anxiety disorder, unspecified; F17.210 Nicotine dependence, cigarettes, uncomplicated; Z89.421 Acquired absence of other right toe(s); Z88.8 Allergy status to other drugs, medicaments and biological substances; Z59.0 Homelessness; Z91.19 Patient's noncompliance with other medical treatment and regimen
CPT/HCPCS: 36415; 80048; 80053; 82962; 85025; 85652; 87040; 99285; J0360; J1630; J1644; J1815; J1956; J3490; J7030

== ENCOUNTER 2017-08-08 09:31 | Inpatient (IN) | payer SELFPAY ==
--- NOTE | 2017-08-08 10:21 | ER Document Report ---
ED Medical Screen (RME) - General Chief Complaint: Foot Pain Stated Complaint: FOOT PAIN Time Seen by Provider: 08/08/17 10:16 Mode of Arrival: Ambulatory Information source: Patient TRAVEL OUTSIDE OF THE [place] IN LAST 30 DAYS: No - HPI Onset: Last week Onset/Duration: Gradual Context: Patient complains of pain and infection in his right foot. He is diabetic, homeless, and was inpatient at this hospital from April until June. During that hospitalization he apparently had amputation of the small toe and metatarsal. He says the foot was doing well until last week. Quality of pain: Dull - Related Data Allergies/Adverse Reactions: insulin regular [From Novolin 70/30] Allergy (Unknown, Verified 08/08/17 09:32) insulin isophane (NPH) [From Novolin 70/30] Allergy (Verified 08/08/17 09:32) metformin Allergy (Verified 08/08/17 09:32) Past Medical History - General Information source: Patient - Social History Frequency of alcohol use: None Drug Abuse: None Lives with: Homeless - Past Medical History Cardiac Medical History: Reports: Hx Hypercholesterolemia, Hx Hypertension Endocrine Medical History: Reports: Hx Diabetes Mellitus Type 1, Hx Diabetes Mellitus Type 2 Renal/ Medical History: Denies: Hx Peritoneal Dialysis Psychiatric Medical History: Reports: Hx Depression - and anxiety Past Surgical History: Reports: Hx Abdominal Surgery - umbilical hernia repair, Hx Orthopedic Surgery - fifth right toe amputated, Other - Umbilical hernia repair, amputation right 5th digit with 5t metatarsal bone - Immunizations History of Influenza Vaccine for 03/2017 - 08/2017 Season: Refused Review of Systems - Review of Systems Constitutional: No symptoms reported. denies: Fever Musculoskeletal: See HPI Skin: See HPI Physical Exam - Vital signs Vitals: Temp Pulse Resp BP Pulse Ox 97.9 F 86 20 139/91 H 98 08/08/17 09:39 08/08/17 09:39 08/08/17 09:39 08/08/17 09:39 08/08/17 09:39 Interpretation: Hypertensive. No: Tachycardic, Tachypneic, Febrile - General General appearance: Appears well, Alert In distress: None - HEENT Head: Normocephalic Eyes: Normal Conjunctiva: Normal Ears: Normal Nasal: Normal Mouth/Lips: Normal Mucous membranes: Normal - Respiratory Respiratory status: No respiratory distress - Extremities General upper extremity: Normal inspection General lower extremity: No: Normal inspection - R. FOOT Foot: Other - Open wound on the lateral border of right foot, draining small amount of foul-smelling watery discharge. Course - Vital Signs Vital signs: Temp Pulse Resp BP Pulse Ox 97.9 F 86 20 139/91 H 98 08/08/17 09:39 08/08/17 09:39 08/08/17 09:39 08/08/17 09:39 08/08/17 09:39
[2017-08-08] MEDS ORDERED: OXYCODONE-ACETAMINOPHEN 5-325 MG TABLET PO ONE (10:28)
[2017-08-08 10:49] LABS: ABSOLUTE LYMPHOCYTES (AUTO) 1.7 10^3/uL (0.5-4.7); ABSOLUTE MONOCYTES (AUTO) 0.4 10^3/uL (0.1-1.4); BASOPHILS % (AUTO) 0.5 % (0-2); EOSINOPHILS % (AUTO) 0.6 % (0-6); HEMOGLOBIN 14.3 g/dL (13.5-17.0); LYMPHOCYTES % (AUTO) 20.6 % (13-45); MEAN CORPUSCULAR HEMOGLOBIN 28.3 pg (27.0-33.4); MEAN CORPUSCULAR HGB CONC 32.4 g/dL (32.0-36.0); MEAN CORPUSCULAR VOLUME 87 fl (80-97); MONOCYTES % (AUTO) 4.6 % (3-13); PLATELET COUNT 259 10^3/uL (150-450); RED BLOOD COUNT 5.03 10^6/uL (4.35-5.55); RED CELL DISTRIBUTION WIDTH 15.1 % (11.5-14.0); SEGMENTED NEUTROPHILS % (AUTO) 73.7 % (42-78); TOTAL CELLS COUNTED % (AUTO) 100 %; WHITE BLOOD COUNT 8.1 10^3/uL (4.0-10.5)
[2017-08-08 11:13] LABS: ALANINE AMINOTRANSFERASE 31 U/L (21-72); ALBUMIN 4.2 g/dL (3.5-5.0); ALKALINE PHOSPHATASE 117 U/L (38-126); ANION GAP 12 (5-19); ASPARTATE AMINO TRANSFERASE 19 U/L (17-59); BILIRUBIN,DIRECT 0.4 mg/dL (0.0-0.4); BILIRUBIN,TOTAL 0.6 mg/dL (0.2-1.3); BLOOD UREA NITROGEN 20 mg/dL (7-20); CALCIUM 10.1 mg/dL (8.4-10.2); CARBON DIOXIDE 25 mmol/L (22-30); CHLORIDE 93 mmol/L (98-107); POTASSIUM 4.2 mmol/L (3.6-5.0); SODIUM 130.3 mmol/L (137-145); TOTAL PROTEIN 7.4 g/dL (6.3-8.2)
[2017-08-08 11:31] LABS: GLUCOSE 616 mg/dL (75-110)
--- NOTE | 2017-08-08 11:33 | RADIOLOGY REPORT (SQ) ---
EXAM DESCRIPTION: FOOT RIGHT COMPLETE COMPLETED DATE/TIME: 08/08/2017 11:03 am REASON FOR STUDY: INFECTED OPEN WOUND, R/O OSTEO COMPARISON: 10/02/2015. NUMBER OF VIEWS: Three views. TECHNIQUE: AP, lateral and oblique radiographic images acquired of the right foot. LIMITATIONS: None. FINDINGS: MINERALIZATION: Normal. BONES: Old healed posttraumatic deformity involving the base of the 5th metatarsal. There is new ero sive change involving the base of the 5th metatarsal and distal aspect of the cuboid with extensive p eriostitis involving the majority of the 5th metatarsal and a portion of the 4th metatarsal. JOINTS: No effusions. SOFT TISSUES: Diffuse soft tissue swelling with soft tissue defect lateral foot compatible with histo ry of ulcer. Vascular calcifications. OTHER: No other significant finding. IMPRESSION: RADIOGRAPHIC FINDINGS HIGHLY SUSPICIOUS FOR OSTEOMYELITIS INVOLVING THE 5TH METATARSAL A ND CUBOID ABOVE WITH POSSIBLE INVOLVEMENT OF THE 4TH METATARSAL. SURGICAL CONSULTATION MEHNAZ Wei TECHNICAL DOCUMENTATION: JOB ID: [id number] [employer]- All Rights Reserved
[2017-08-08] MEDS ORDERED: INSULIN REG, HUMAN 100 UNIT/ML 3 ML VIAL (PYX) IV ONE (11:35)
[2017-08-08] MEDS ORDERED: NORMAL SALINE 1000 ML 1,000 ML IV PRN (11:36)
[2017-08-08] MEDS ORDERED: VANCOMYCIN HCL INJ 1000 MG VIAL IV ONE (11:40)
[2017-08-08] MEDS ORDERED: HYDROMORPHONE HCL INJ/PF 2 MG/ML AMPULE IV ONE (11:53)
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
--- NOTE | 2017-08-08 13:45 | PDOC CONSULTATION ---
Consultation Consult Date: 08/08/17 Attending physician:: EUGENE ANAYA Consult reason:: osteomyelitis right foot History of Present Illness Admission Date/PCP: 08/08/17 13:06 History of Present Illness: LEEANNE WYLIE is a 57 year old male, homeless, well know to our service, hx pr recent right foot 5th toe amputation, being admitted for DKA. An Xtray of the right foot has been done today and it reveals the already known osteomyelitis of 4th and 5th metatarsals. He has no c/o excvept for occasional neupathic pain of the right foot. Past Medical History Cardiac Medical History: Reports: Hyperlipidema, Hypertension Endocrine Medical History: Reports: Diabetes Mellitus Type 1, Diabetes Mellitus Type 2 Psychiatric Medical History: Reports: Depression - and anxiety Past Surgical History Past Surgical History: Reports: Orthopedic Surgery - fifth right toe amputated, Other - Umbilical hernia repair, amputation right 5th digit with 5t metatarsal bone Social History Lives with: Homeless Smoking Status: Never Smoker Frequency of Alcohol Use: None Hx Recreational Drug Use: No Drugs: None Hx Prescription Drug Abuse: No Family History Family History: Reviewed & Not Pertinent Family History: unknown Parental Family History Reviewed: Yes Children Family History Reviewed: Yes Sibling(s) Family History Reviewed.: Yes Medication/Allergy Allergies/Adverse Reactions: insulin regular [From Novolin 70/30] Allergy (Unknown, Verified 08/08/17 09:32) insulin isophane (NPH) [From Novolin 70/30] Allergy (Verified 08/08/17 09:32) metformin Allergy (Verified 08/08/17 09:32) Physical Exam Vital Signs: Temp Pulse Resp BP Pulse Ox 97.9 F 86 20 139/91 H 98 08/08/17 09:39 08/08/17 09:39 08/08/17 09:39 08/08/17 09:39 08/08/17 09:39 Musculoskeletal exam: PRESENT: other - Right foot: amputated 5ht toe, well healing lateral aspect wound, no drainage Results Impressions: Foot X-Ray 08/08/17 10:25 IMPRESSION: RADIOGRAPHIC FINDINGS HIGHLY SUSPICIOUS FOR OSTEOMYELITIS INVOLVING THE 5TH METATARSAL AND CUBOID ABOVE WITH POSSIBLE INVOLVEMENT OF THE 4TH METATARSAL. SURGICAL CONSULTATION RECOMMENDED. Assessment & Plan - Diagnosis (1) Osteomyelitis Qualifiers: Osteomyelitis type: other acute Osteomyelitis location: foot Laterality: right Qualified Code(s): M86.171 - Other acute osteomyelitis, right ankle and foot - Plan Summary Plan Summary: A/ S/P Right 5ht toe amputation Well known osteomyelitis 4th and 5th metatarsal bones on Xray today, already known No acute physical finding requiring interventikon at this time P/ No need of General Surgery monitoring during this hospitalization Patient to be seen in the General Surgery clinic in 1-2 weeks after discharged, if admitted Eventually, the patient will require a right BKA, not recommended at this time because of poor compliance and social situation. I will sign off, please call me with questions.
[2017-08-08 13:49] LABS: ARTERIAL BLOOD FIO2 ROOM AIR; ARTERIAL BLOOD H2CO3 1.22 mmol/L (1.05-1.35); ARTERIAL BLOOD HCO3 23.9 mmol/L (20-26); ARTERIAL BLOOD O2 SATURATION 97.8 % (94-98); ARTERIAL BLOOD PCO2 40.4 mmHg (35-45); ARTERIAL BLOOD PH 7.39 (7.35-7.45); ARTERIAL BLOOD PO2 105.8 mmHg (80-100); ARTERIAL BLOOD TOTAL CO2 25.1 mmol/L (23-27)
--- NOTE | 2017-08-08 14:51 | RADIOLOGY REPORT (SQ) ---
EXAM DESCRIPTION: CHEST SINGLE VIEW COMPLETED DATE/TIME: 08/08/2017 2:43 pm REASON FOR STUDY: DKA COMPARISON: None. EXAM PARAMETERS: NUMBER OF VIEWS: One view. TECHNIQUE: Single frontal radiographic view of the chest acquired. RADIATION DOSE: NA LIMITATIONS: None. FINDINGS: LUNGS AND PLEURA: Linear opacity right mid lung compatible with subsegmental atelectasis o r scarring. No consolidation. No, masses or pneumothorax. No pleural effusion. MEDIASTINUM AND HILAR STRUCTURES: No masses. Contour normal. HEART AND VASCULAR STRUCTURES: Cardiomegaly. Normal vasculature. BONES: No acute findings. HARDWARE: None in the chest. OTHER: No other significant finding. IMPRESSION: CARDIOMEGALY. NO ACUTE RADIOGRAPHIC FINDING IN THE CHEST. TECHNICAL DOCUMENTATION: JOB ID: [id number] [employer]- All Rights Reserved
[2017-08-08] MEDS ORDERED: ENOXAPARIN SODIUM INJ 40 MG/0.4 ML DISP.SYRIN SUBCUT ONE (15:30)
[2017-08-08] MEDS ORDERED: DEXTROSE 50%-WATER 25 GM/50 ML DISP.SYRIN IV PRN ×2 (19:46)
[2017-08-08] MEDS ORDERED: DEXTROSE 40% GEL 15 GM TUBE PO PRN ×2 (19:46)
[2017-08-08] MEDS ORDERED: GLUCAGON,HUMAN RECOMB 1 MG INJ IM PRN (19:46)
[2017-08-08] MEDS ORDERED: PIPERACILLIN/TAZOBACTAM 3.375 GM VIAL IV PRN (19:53)
--- NOTE | 2017-08-08 19:55 | PDOC H&P ---
History of Present Illness Admission Date/PCP: 08/08/17 13:06 Patient complains of: Right foot infection History of Present Illness: LEEANNE WYLIE is a 57 year old male with history of diabetes mellitus and reports being homeless. He states he has not been using his diabetes medications and has not been going to the doctor's because he could not afford these. He has history of amputation of right foot 5th toe in April 2017. He now presents to the ED with complaint of pain on the right foot and ulceration. Xtray of the right foot revealed osteomyelitis of 4th and 5th metatarsals. He was also found to be hyperglycemic with glucose > 600. This was termed as DKA without further workup by the ED provider and referred for admission to the medical service rather than the surgical. Of note ABG now done and does not reveal acidosis. Patient denies fever or chills. Beta hydroxybutyrate is pending. Past Medical History Cardiac Medical History: Reports: Hyperlipidema, Hypertension Endocrine Medical History: Reports: Diabetes Mellitus Type 2 Psychiatric Medical History: Reports: Depression - and anxiety Past Surgical History Past Surgical History: Reports: Orthopedic Surgery - fifth right toe amputated, Other - Umbilical hernia repair, amputation right 5th digit with 5t metatarsal bone Social History Lives with: Homeless Smoking Status: Current Every Day Smoker Frequency of Alcohol Use: Occasional Hx Recreational Drug Use: No Drugs: None, Marijuana Hx Prescription Drug Abuse: No Family History Family History: Reviewed & Not Pertinent Parental Family History Reviewed: Yes Children Family History Reviewed: Unknown Sibling(s) Family History Reviewed.: Unknown Medication/Allergy Home Medications: No Home Medications 08/08/17 Allergies/Adverse Reactions: insulin regular [From Novolin 70/30] Allergy (Unknown, Verified 08/08/17 09:32) insulin isophane (NPH) [From Novolin 70/30] Allergy (Verified 08/08/17 09:32) metformin Allergy (Verified 08/08/17 09:32) Review of Systems All systems: reviewed and no additional remarkable complaints except as stated - As in HPI Physical Exam Vital Signs: Temp Pulse Resp BP Pulse Ox 97.8 F 79 18 175/105 H 98 08/08/17 18:30 08/08/17 18:30 08/08/17 18:30 08/08/17 18:30 08/08/17 18:30 GENERAL: Well-developed, poorly groomed and disheveled male, in no acute distress HEENT: Normocephalic/atraumatic NECK supple, no JVD CARDIOVASCULAR: RRR, normal S1-S2, no appreciable murmur LUNGS: CTA bilaterally ABDOMEN: Soft, NT, NL bowel sounds EXTREMITIES: No edema, clubbing, cyanosis, status post right fifth toe amputation, open sore area lateral aspect of right foot, malodorous NEUROLOGICAL: Alert, oriented x 3, no focal weakness Results Laboratory Results: 08/08/17 13:10 Carbonic Acid 1.22 HCO3/H2CO3 Ratio 19:1 ABG pH 7.39 ABG pCO2 40.4 ABG pO2 105.8 H ABG HCO3 23.9 ABG O2 Saturation 97.8 ABG Base Excess -1.0 FiO2 ROOM AIR Impressions: Foot X-Ray 08/08/17 10:25 IMPRESSION: RADIOGRAPHIC FINDINGS HIGHLY SUSPICIOUS FOR OSTEOMYELITIS INVOLVING THE 5TH METATARSAL AND CUBOID ABOVE WITH POSSIBLE INVOLVEMENT OF THE 4TH METATARSAL. SURGICAL CONSULTATION RECOMMENDED. Chest X-Ray 08/08/17 12:16 IMPRESSION: CARDIOMEGALY. NO ACUTE RADIOGRAPHIC FINDING IN THE CHEST. Assessment & Plan - Diagnosis (1) Osteomyelitis Qualifiers: Osteomyelitis type: other acute Osteomyelitis location: foot Laterality: right Qualified Code(s): M86.171 - Other acute osteomyelitis, right ankle and foot - Plan Summary Plan Summary: Doubt that patient is in DKA. Suspect this is hyperglycemia from uncontrolled diabetes/noncompliance. In any case we will admit and start IV antibiotics with IV zosyn for osteomyelitis. Will resume medications for diabetes and other medical problems. Will check Accu-Cheks and cover with insulin as needed. Care management consult for possible placement. Ideally, patient shall have his BKA now, especially if placement can be arranged.
[2017-08-08] MEDS ORDERED: LISINOPRIL 10 MG TABLET PO ONE (20:00)
[2017-08-08] MEDS: NORMAL SALINE 1000 ML 1,000 ML IV PRN (22:03)
[2017-08-08] MEDS: PIPERACILLIN SODIUM/TAZOBACTAM 3.375 GM in NORMAL SALINE 100 ML IV SCH (22:04)
--- NOTE | 2017-08-08 22:12 | EKG REPORT ---
SEVERITY:- BORDERLINE ECG - SINUS RHYTHM BORDERLINE PROLONGED QT INTERVAL : Confirmed by: Truong Stovall 08-Aug-2017 22:12:15
[2017-08-08] MEDS: ACETAMINOPHEN 325 MG TABLET PO PRN (23:06)
[2017-08-08] MEDS: INSULIN DETEMIR 100 UNIT/ML 3 ML PEN SUBCUT SCH (23:10)
[2017-08-08 23:29] LABS: APPEARANCE,URINE CLEAR; BILIRUBIN,URINE NEGATIVE (NEGATIVE); COLOR,URINE STRAW; GLUCOSE, URINE >=500 mg/dL (NEGATIVE); KETONES,URINE NEGATIVE (NEGATIVE); LEUKOCYTE ESTERASE,URINE NEGATIVE (NEGATIVE); NITRITE,URINE NEGATIVE (NEGATIVE); PROTEIN,URINE 100 mg/dL (NEGATIVE); URINE SPECIFIC GRAVITY 1.027; UROBILINOGEN,URINE NEGATIVE mg/dL (<2.0)
[2017-08-08 23:48] LABS: URINE AMPHETAMINES SCREEN NEGATIVE; URINE BARBITURATES SCREEN NEGATIVE; URINE BENZODIAZEPINES SCREEN NEGATIVE; URINE COCAINE SCREEN UNCONFIRMED POSITIVE; URINE MARIJUANA (THC) SCREEN NEGATIVE; URINE METHADONE SCREEN NEGATIVE; URINE PHENCYCLIDINE SCREEN NEGATIVE
[2017-08-09] MEDS: NORMAL SALINE 1000 ML 1,000 ML IV PRN ×3 (01:30→06:49)
[2017-08-09] MEDS ORDERED: OXYCODONE HCL IR 5 MG TABLET PO PRN (03:45)
[2017-08-09] MEDS: PIPERACILLIN SODIUM/TAZOBACTAM 3.375 GM in NORMAL SALINE 100 ML IV SCH ×3 (06:48→23:00)
[2017-08-09 08:51] LABS: INTERNATIONAL RATION (INR) 0.93; PROTHROMBIN TIME 13.1 SEC (11.4-15.4)
[2017-08-09 08:54] LABS: ABSOLUTE BASOPHILS # (AUTO) 0.1 10^3/uL (0.0-0.2); ABSOLUTE EOSINOPHILS # (AUTO) 0.1 10^3/uL (0.0-0.6); ABSOLUTE LYMPHOCYTES (AUTO) 1.3 10^3/uL (0.5-4.7); ABSOLUTE MONOCYTES (AUTO) 0.6 10^3/uL (0.1-1.4); ABSOLUTE NEUT (AUTO) 4.9 10^3/uL (1.7-8.2); BASOPHILS % (AUTO) 0.7 % (0-2); EOSINOPHILS % (AUTO) 1.8 % (0-6); LYMPHOCYTES % (AUTO) 18.5 % (13-45); MEAN CORPUSCULAR HEMOGLOBIN 28.2 pg (27.0-33.4); MEAN CORPUSCULAR HGB CONC 32.7 g/dL (32.0-36.0); MEAN CORPUSCULAR VOLUME 86 fl (80-97); MONOCYTES % (AUTO) 8.6 % (3-13); PLATELET COUNT 196 10^3/uL (150-450); RED BLOOD COUNT 4.29 10^6/uL (4.35-5.55); RED CELL DISTRIBUTION WIDTH 15.2 % (11.5-14.0); SEGMENTED NEUTROPHILS % (AUTO) 70.4 % (42-78); TOTAL CELLS COUNTED % (AUTO) 100 %
[2017-08-09 08:56] LABS: HEMOGLOBIN 12.1 g/dL (13.5-17.0)
[2017-08-09 09:04] LABS: ALANINE AMINOTRANSFERASE 26 U/L (21-72); ALBUMIN 2.9 g/dL (3.5-5.0); ALKALINE PHOSPHATASE 89 U/L (38-126); ANION GAP 8 (5-19); ASPARTATE AMINO TRANSFERASE 13 U/L (17-59); BILIRUBIN,DIRECT 0.3 mg/dL (0.0-0.4); BILIRUBIN,TOTAL 0.5 mg/dL (0.2-1.3); BLOOD UREA NITROGEN 17 mg/dL (7-20); CALCIUM 8.5 mg/dL (8.4-10.2); CARBON DIOXIDE 21 mmol/L (22-30); CHLORIDE 108 mmol/L (98-107); GLUCOSE 374 mg/dL (75-110); POTASSIUM 3.9 mmol/L (3.6-5.0); SODIUM 137.1 mmol/L (137-145); TOTAL PROTEIN 5.7 g/dL (6.3-8.2)
--- NOTE | 2017-08-09 09:53 | PDOC PROGRESS REPORT ---
Subjective Progress Note for:: 08/09/17 Subjective:: Complains of pain right foot and back. Otherwise doing okay, no fever or chills. No nausea or vomiting. Reason For Visit: OSTEOMYELITIS RT FOOT,UNCONTROLLED DM Physical Exam Vital Signs: Temp Pulse Resp BP Pulse Ox 97.5 F 83 18 152/70 H 98 08/08/17 21:59 08/08/17 21:59 08/08/17 21:59 08/08/17 21:59 08/08/17 21:59 GEN: NAD, well-developed, disheveled CV: RRR, NL S1S2 LUNGS: CTA bilaterally ABDOMEN Soft, NT, +BS EXTERMITIES: No edema, clubbing, cyanosis, status post right fifth toe amputation, open sore area lateral aspect of right foot, malodorous NEURO: Alert, oriented Results Laboratory Results: 08/09/17 08:32 08/09/17 08:32 08/08/17 08/08/17 08/09/17 13:10 20:15 08:32 WBC 7.0 RBC 4.29 L Hgb 12.1 L D Hct 37.0 L MCV 86 MCH 28.2 MCHC 32.7 RDW 15.2 H Plt Count 196 Seg Neutrophils % 70.4 Lymphocytes % 18.5 Monocytes % 8.6 Eosinophils % 1.8 Basophils % 0.7 Absolute Neutrophils 4.9 Absolute Lymphocytes 1.3 Absolute Monocytes 0.6 Absolute Eosinophils 0.1 Absolute Basophils 0.1 Carbonic Acid 1.22 HCO3/H2CO3 Ratio 19:1 ABG pH 7.39 ABG pCO2 40.4 ABG pO2 105.8 H ABG HCO3 23.9 ABG O2 Saturation 97.8 ABG Base Excess -1.0 FiO2 ROOM AIR Sodium Potassium Chloride Carbon Dioxide Anion Gap BUN Creatinine Est GFR ( Amer) Est GFR (Non-Af Amer) Glucose Calcium Total Bilirubin AST ALT Alkaline Phosphatase Total Protein Albumin Urine Color STRAW Urine Appearance CLEAR Urine pH 5.0 Ur Specific [place] 1.027 Urine Protein 100 H Urine Glucose (UA) >=500 H Urine Ketones NEGATIVE Urine Blood NEGATIVE Urine Nitrite NEGATIVE Ur Leukocyte Esterase NEGATIVE Urine WBC (Auto) 7 Urine RBC (Auto) 1 08/09/17 08:32 WBC RBC Hgb Hct MCV MCH MCHC RDW Plt Count Seg Neutrophils % Lymphocytes % Monocytes % Eosinophils % Basophils % Absolute Neutrophils Absolute Lymphocytes Absolute Monocytes Absolute Eosinophils Absolute Basophils Carbonic Acid HCO3/H2CO3 Ratio ABG pH ABG pCO2 ABG pO2 ABG HCO3 ABG O2 Saturation ABG Base Excess FiO2 Sodium 137.1 Potassium 3.9 Chloride 108 H Carbon Dioxide 21 L Anion Gap 8 BUN 17 Creatinine 1.25 Est GFR ( Amer) > 60 Est GFR (Non-Af Amer) 59 L Glucose 374 H Calcium 8.5 Total Bilirubin 0.5 AST 13 L ALT 26 Alkaline Phosphatase 89 Total Protein 5.7 L Albumin 2.9 L Urine Color Urine Appearance Urine pH Ur Specific [place] Urine Protein Urine Glucose (UA) Urine Ketones Urine Blood Urine Nitrite Ur Leukocyte Esterase Urine WBC (Auto) Urine RBC (Auto) Impressions: Foot X-Ray 08/08/17 10:25 IMPRESSION: RADIOGRAPHIC FINDINGS HIGHLY SUSPICIOUS FOR OSTEOMYELITIS INVOLVING THE 5TH METATARSAL AND CUBOID ABOVE WITH POSSIBLE INVOLVEMENT OF THE 4TH METATARSAL. SURGICAL CONSULTATION RECOMMENDED. Chest X-Ray 08/08/17 12:16 IMPRESSION: CARDIOMEGALY. NO ACUTE RADIOGRAPHIC FINDING IN THE CHEST. Assessment & Plan - Diagnosis (1) Osteomyelitis Qualifiers: Osteomyelitis type: other acute Osteomyelitis location: foot Laterality: right Qualified Code(s): M86.171 - Other acute osteomyelitis, right ankle and foot - Plan Summary Plan Summary: Continue IV antibiotics with Zosyn. Continue IV fluid, Lantus 20 mg nightly. Will glipizide 5mg twice daily to diabetes regimen. Care management consult for possible placement.
[2017-08-09] MEDS: ENOXAPARIN SODIUM INJ 40 MG/0.4 ML DISP.SYRIN SUBCUT SCH (10:33)
[2017-08-09] MEDS: OXYCODONE HCL IR 5 MG TABLET PO PRN ×3 (10:35→22:56)
[2017-08-09] MEDS: LISINOPRIL 10 MG TABLET PO SCH (10:35)
[2017-08-09] MEDS: ACETAMINOPHEN 325 MG TABLET PO PRN (15:07)
[2017-08-09] MEDS: INSULIN DETEMIR 100 UNIT/ML 3 ML PEN SUBCUT SCH (22:57)
[2017-08-10] MEDS: OXYCODONE HCL IR 5 MG TABLET PO PRN ×2 (05:37→14:40)
[2017-08-10] MEDS: PIPERACILLIN SODIUM/TAZOBACTAM 3.375 GM in NORMAL SALINE 100 ML IV SCH ×3 (06:14→21:28)
[2017-08-10] MEDS: NORMAL SALINE 1000 ML 1,000 ML IV PRN (06:14)
[2017-08-10] MEDS: ENOXAPARIN SODIUM INJ 40 MG/0.4 ML DISP.SYRIN SUBCUT SCH (09:18)
[2017-08-10] MEDS: LISINOPRIL 10 MG TABLET PO SCH ×2 (09:19→10:25)
[2017-08-10] MEDS ORDERED: DEXTROSE 40% GEL 15 GM TUBE X 2 PO PRN (09:33)
[2017-08-10] MEDS ORDERED: DEXTROSE 40% GEL 15 GM TUBE PO PRN (09:33)
[2017-08-10] MEDS ORDERED: DEXTROSE 50%-WATER SYRINGE 25 GM/50 ML DOSE IV PRN (09:33)
[2017-08-10] MEDS ORDERED: GLUCAGON,HUMAN RECOMB 1 MG INJ IM PRN (09:33)
[2017-08-10] MEDS ORDERED: DEXTROSE 50%-WATER SYRINGE 12.5 GM/25 ML DOSE IV PRN (09:33)
[2017-08-10] MEDS ORDERED: GLIPIZIDE XL 5 MG TAB.ER.24 PO ONE (10:00)
[2017-08-10] MEDS: INSULIN LISPRO 100 UNIT/ML 3 ML VIAL SUBCUT PRN ×4 (10:25→21:38)
--- NOTE | 2017-08-10 20:40 | PDOC PROGRESS REPORT ---
Subjective Progress Note for:: 08/10/17 Subjective:: No new complaints. No fever or chills. No chest pain or shortness of breath no palpitations, no abdominal pain, nausea or vomiting. Reason For Visit: OSTEOMYELITIS RT FOOT,UNCONTROLLED DM Physical Exam Vital Signs: Temp Pulse Resp BP Pulse Ox 98.8 F 75 16 170/76 H 99 08/10/17 16:13 08/10/17 16:13 08/10/17 16:13 08/10/17 16:13 08/10/17 16:13 Intake & Output 08/09/17 08/10/17 08/11/17 06:59 06:59 06:59 Intake Total 1241 1475 Balance 1241 1475 Weight 83.1 kg GEN: NAD, well-developed CV: RRR, NL S1S2 LUNGS: CTA bilaterally ABDOMEN Soft, NT, +BS EXTERMITIES: No edema, clubbing, cyanosis, status post right fifth toe amputation, open sore area lateral aspect of right foot, no discharge NEURO: Alert, oriented Results Laboratory Results: 08/09/17 08:32 08/09/17 08:32 Impressions: Foot X-Ray 08/08/17 10:25 IMPRESSION: RADIOGRAPHIC FINDINGS HIGHLY SUSPICIOUS FOR OSTEOMYELITIS INVOLVING THE 5TH METATARSAL AND CUBOID ABOVE WITH POSSIBLE INVOLVEMENT OF THE 4TH METATARSAL. SURGICAL CONSULTATION RECOMMENDED. Chest X-Ray 08/08/17 12:16 IMPRESSION: CARDIOMEGALY. NO ACUTE RADIOGRAPHIC FINDING IN THE CHEST. Assessment & Plan - Diagnosis (1) Osteomyelitis Qualifiers: Osteomyelitis type: other acute Osteomyelitis location: foot Laterality: right Qualified Code(s): M86.171 - Other acute osteomyelitis, right ankle and foot (7) Uncontrolled type 2 diabetes mellitus Qualifiers: Diabetes mellitus complication status: with hyperglycemia Diabetes mellitus mcc insulin use: with mcc use Qualified Code(s): E11.65 - Type 2 diabetes mellitus with hyperglycemia; Z79.4 - manager travel (current) use of insulin; Z79.4 - long-term (current) use of insulin; Z79.4 - manager travel ( current) use of insulin; Z79.4 - long-term (current) use of insulin Is this a current diagnosis for this admission?: Yes - Plan Summary Plan Summary: Continue IV antibiotics with Zosyn for now. Osteomyelitis is chronic. Patient has no fever or chills, white blood cells fine. He would ideally need an amputation but not a suitable candidate at this time per surgical consult surgery. Consider asking surgery to reevaluate patient for BKA if he can be found placement. Can probably transition patient to oral antibiotics in a few days. Continue IV fluid, increase Lantus to 30 mg nightly (from 20). Will continue glipizide 5mg twice daily, as well as add sliding scale insulin. Care management consult for possible placement.
[2017-08-10] MEDS: INSULIN DETEMIR 100 UNIT/ML 3 ML PEN SUBCUT SCH (21:27)
[2017-08-11] MEDS: PIPERACILLIN SODIUM/TAZOBACTAM 3.375 GM in NORMAL SALINE 100 ML IV SCH ×3 (05:26→22:30)
[2017-08-11] MEDS: HYDRALAZINE HCL INJ/PF 20 MG/1 ML SDV IV PRN (05:29)
[2017-08-11 06:35] LABS: ABSOLUTE EOSINOPHILS # (AUTO) 0.2 10^3/uL (0.0-0.6); ABSOLUTE LYMPHOCYTES (AUTO) 1.1 10^3/uL (0.5-4.7); ABSOLUTE MONOCYTES (AUTO) 0.6 10^3/uL (0.1-1.4); ABSOLUTE NEUT (AUTO) 3.7 10^3/uL (1.7-8.2); BASOPHILS % (AUTO) 0.5 % (0-2); HEMATOCRIT 39.5 % (37.9-51.0); HEMOGLOBIN 13.1 g/dL (13.5-17.0); LYMPHOCYTES % (AUTO) 20.3 % (13-45); MEAN CORPUSCULAR HEMOGLOBIN 28.6 pg (27.0-33.4); MEAN CORPUSCULAR HGB CONC 33.2 g/dL (32.0-36.0); MEAN CORPUSCULAR VOLUME 86 fl (80-97); PLATELET COUNT 208 10^3/uL (150-450); RED BLOOD COUNT 4.59 10^6/uL (4.35-5.55); RED CELL DISTRIBUTION WIDTH 15.5 % (11.5-14.0); SEGMENTED NEUTROPHILS % (AUTO) 65.2 % (42-78); TOTAL CELLS COUNTED % (AUTO) 100 %; WHITE BLOOD COUNT 5.6 10^3/uL (4.0-10.5)
[2017-08-11 06:54] LABS: ANION GAP 11 (5-19); BLOOD UREA NITROGEN 14 mg/dL (7-20); CALCIUM 9.1 mg/dL (8.4-10.2); CARBON DIOXIDE 21 mmol/L (22-30); CHLORIDE 108 mmol/L (98-107); GLUCOSE 265 mg/dL (75-110); SODIUM 139.6 mmol/L (137-145)
[2017-08-11] MEDS ORDERED: GLIPIZIDE XL 5 MG TAB.ER.24 PO SCH (08:00)
[2017-08-11] MEDS: AMLODIPINE BESYLATE 10 MG TABLET PO SCH (09:22)
[2017-08-11] MEDS: LISINOPRIL 10 MG TABLET PO SCH (09:22)
[2017-08-11] MEDS: INSULIN LISPRO 100 UNIT/ML 3 ML VIAL SUBCUT PRN ×4 (09:22→22:30)
[2017-08-11] MEDS: OXYCODONE HCL IR 5 MG TABLET PO PRN ×3 (09:26→22:30)
[2017-08-11] MEDS: ENOXAPARIN SODIUM INJ 40 MG/0.4 ML DISP.SYRIN SUBCUT SCH (09:27)
[2017-08-11] MEDS ORDERED: CARVEDILOL 12.5 MG TABLET PO SCH (10:00)
--- NOTE | 2017-08-11 14:13 | PDOC PROGRESS REPORT ---
Subjective Progress Note for:: 08/11/17 Subjective:: 57-year-old male with poorly controlled diabetes hypertension presented to the emergency department with pain and ulceration on his right foot. He is homeless. He underwent amputation of the right fifth toe April 2017, for osteomyelitis. His hospital stay was prolonged because of his homelessness. He had a wound VAC on for an extended period of time. Ultimately, it was discontinued. He was discharged with recommendations to follow up with a wound care clinic. He was given prescriptions for medications and an appointment. Unfortunately, he was unable to keep the appointment or get his medications. When he came back to the hospital this time, x-ray of the right foot revealed ongoing osteomyelitis of the fourth and fifth metatarsals. He was also hyperglycemic with a blood sugar greater than 600. He was admitted for uncontrolled diabetes, as well as osteomyelitis in his right foot. He was seen by surgery on admission. They did not see a need for him to be hospitalized. They recommended that he simply follow-up with the general surgery clinic in 1-2 weeks after being discharged. Fortunately due to his homelessness, he is not in a position to be "discharged" because he would not likely get the care that he needed. August 09 He reports pain in his right foot. His blood pressure was better controlled. Blood sugars were better controlled as well. He is on Zosyn. August 10 No changes, except Lantus was increased from 20 units to 30 units at bedtime. August 11 No problems overnight. Reason For Visit: OSTEOMYELITIS RT FOOT,UNCONTROLLED DM Physical Exam Vital Signs: Temp Pulse Resp BP Pulse Ox 98.1 F 64 16 151/76 H 95 08/11/17 12:04 08/11/17 12:04 08/11/17 12:04 08/11/17 12:04 08/11/17 12:04 Intake & Output 08/10/17 08/11/17 08/12/17 06:59 06:59 06:59 Intake Total 1241 1737 Balance 1241 1737 Weight 83.1 kg 83 kg General appearance: PRESENT: no acute distress, well-developed, well-nourished Head exam: PRESENT: atraumatic, normocephalic Neck exam: ABSENT: carotid bruit, JVD, lymphadenopathy, thyromegaly Respiratory exam: PRESENT: clear to auscultation manuel. ABSENT: rales, rhonchi, wheezes Cardiovascular exam: PRESENT: RRR. ABSENT: diastolic murmur, rubs, systolic murmur GI/Abdominal exam: PRESENT: normal bowel sounds, soft. ABSENT: distended, guarding, mass, organolmegaly, rebound, tenderness Musculoskeletal exam: PRESENT: other - Right foot is bandaged with foul odor Neurological exam: PRESENT: alert, awake, oriented to person, oriented to place , oriented to time, oriented to situation, CN II-XII grossly intact. ABSENT: motor sensory deficit Results Laboratory Results: 08/11/17 05:50 08/11/17 05:50 08/11/17 08/11/17 05:50 05:50 WBC 5.6 RBC 4.59 Hgb 13.1 L Hct 39.5 MCV 86 MCH 28.6 MCHC 33.2 RDW 15.5 H Plt Count 208 Seg Neutrophils % 65.2 Lymphocytes % 20.3 Monocytes % 10.0 Eosinophils % 4.0 Basophils % 0.5 Absolute Neutrophils 3.7 Absolute Lymphocytes 1.1 Absolute Monocytes 0.6 Absolute Eosinophils 0.2 Absolute Basophils 0.0 Sodium 139.6 Potassium 4.0 Chloride 108 H Carbon Dioxide 21 L Anion Gap 11 BUN 14 Creatinine 1.13 Est GFR ( Amer) > 60 Est GFR (Non-Af Amer) > 60 Glucose 265 H Calcium 9.1 08/08/17 20:15 Clean Catch Midstream Urine Culture - Final C.albicans/C.dubliniensis Impressions: Foot X-Ray 08/08/17 10:25 IMPRESSION: RADIOGRAPHIC FINDINGS HIGHLY SUSPICIOUS FOR OSTEOMYELITIS INVOLVING THE 5TH METATARSAL AND CUBOID ABOVE WITH POSSIBLE INVOLVEMENT OF THE 4TH METATARSAL. SURGICAL CONSULTATION RECOMMENDED. Chest X-Ray 08/08/17 12:16 IMPRESSION: CARDIOMEGALY. NO ACUTE RADIOGRAPHIC FINDING IN THE CHEST. Assessment & Plan - Diagnosis (1) Homelessness Is this a current diagnosis for this admission?: Yes Plan: ? (2) Osteomyelitis Qualifiers: Osteomyelitis type: subacute Osteomyelitis location: foot Laterality: right Qualified Code(s): M86.271 - Subacute osteomyelitis, right ankle and foot Is this a current diagnosis for this admission?: Yes Plan: Continue antibiotics and local wound care for now. (3) Chronic kidney disease, stage 3 (moderate) Is this a current diagnosis for this admission?: No (4) Hypertension Qualifiers: Hypertension type: essential hypertension Qualified Code(s): I10 - Essential (primary) hypertension Is this a current diagnosis for this admission?: Yes Plan: Increase carvedilol to 25 mg twice daily (5) Peripheral neuropathy Qualifiers: Peripheral neuropathy type: polyneuropathy, unspecified Qualified Code(s): G62.9 - Polyneuropathy, unspecified Is this a current diagnosis for this admission?: Yes Plan: Increase oxycodone to 10 mg every 6 hours as needed for pain (6) Uncontrolled type 2 diabetes mellitus Qualifiers: Diabetes mellitus complication status: with hyperglycemia 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 I may need to increase it more, tomorrow. - Time Time Spent with patient: 25-34 minutes Anticipated discharge: Other - Inpatient Certification Medical Necessity: Failure to Improve With Outpatient Therapy, Need for IV Antibiotics
[2017-08-11] MEDS: CARVEDILOL 12.5 MG TABLET PO SCH (22:30)
[2017-08-11] MEDS: INSULIN DETEMIR 100 UNIT/ML 3 ML PEN SUBCUT SCH (22:30)
[2017-08-12] MEDS: PIPERACILLIN SODIUM/TAZOBACTAM 3.375 GM in NORMAL SALINE 100 ML IV SCH ×3 (05:36→23:26)
[2017-08-12] MEDS: OXYCODONE HCL IR 5 MG TABLET PO PRN ×2 (05:38→13:27)
[2017-08-12] MEDS: ENOXAPARIN SODIUM INJ 40 MG/0.4 ML DISP.SYRIN SUBCUT SCH (10:02)
[2017-08-12] MEDS: CARVEDILOL 12.5 MG TABLET PO SCH ×2 (10:02→23:25)
[2017-08-12] MEDS: LISINOPRIL 10 MG TABLET PO SCH (10:02)
[2017-08-12] MEDS: AMLODIPINE BESYLATE 10 MG TABLET PO SCH (10:02)
[2017-08-12] MEDS: INSULIN LISPRO 100 UNIT/ML 3 ML VIAL SUBCUT PRN ×3 (14:21→23:25)
--- NOTE | 2017-08-12 18:42 | PDOC PROGRESS REPORT ---
Subjective Progress Note for:: 08/12/17 Subjective:: 57-year-old male with poorly controlled diabetes hypertension presented to the emergency department with pain and ulceration on his right foot. He is homeless. He underwent amputation of the right fifth toe April 2017, for osteomyelitis. His hospital stay was prolonged because of his homelessness. He had a wound VAC on for an extended period of time. Ultimately, it was discontinued. He was discharged with recommendations to follow up with a wound care clinic. He was given prescriptions for medications and an appointment. Unfortunately, he was unable to keep the appointment or get his medications. When he came back to the hospital this time, x-ray of the right foot revealed ongoing osteomyelitis of the fourth and fifth metatarsals. He was also hyperglycemic with a blood sugar greater than 600. He was admitted for uncontrolled diabetes, as well as osteomyelitis in his right foot. He was seen by surgery on admission. They did not see a need for him to be hospitalized. They recommended that he simply follow-up with the general surgery clinic in 1-2 weeks after being discharged. Fortunately due to his homelessness, he is not in a position to be "discharged" because he would not likely get the care that he needed. August 09 He reports pain in his right foot. His blood pressure was better controlled. Blood sugars were better controlled as well. He is on Zosyn. August 10 No changes, except Lantus was increased from 20 units to 30 units at bedtime. August 11 No problems overnight. Aug 12 Complaint of stomach discomfort. No vomiting. He did not have a bowel movement today. Reason For Visit: OSTEOMYELITIS RT FOOT,UNCONTROLLED DM Physical Exam Vital Signs: Temp Pulse Resp BP Pulse Ox 97.9 F 61 16 162/81 H 97 08/12/17 12:18 08/12/17 12:18 08/12/17 12:18 08/12/17 12:18 08/12/17 12:18 Intake & Output 08/11/17 08/12/17 08/13/17 06:59 06:59 06:59 Intake Total 1737 2490 190 Balance 1737 2490 190 Weight 83 kg 84.1 kg General appearance: PRESENT: no acute distress, well-developed, well-nourished Head exam: PRESENT: atraumatic, normocephalic Respiratory exam: PRESENT: clear to auscultation manuel. ABSENT: rales, rhonchi, wheezes Cardiovascular exam: PRESENT: RRR. ABSENT: diastolic murmur, rubs, systolic murmur GI/Abdominal exam: PRESENT: normal bowel sounds, soft. ABSENT: distended, guarding, mass, organolmegaly, rebound, tenderness Musculoskeletal exam: PRESENT: other - Right foot foul-smelling ulceration on the lateral aspect. Neurological exam: PRESENT: alert, awake, oriented to person, oriented to place , oriented to time, oriented to situation, CN II-XII grossly intact. ABSENT: motor sensory deficit Psychiatric exam: PRESENT: appropriate affect, normal mood. ABSENT: homicidal ideation, suicidal ideation Results Laboratory Results: 08/11/17 05:50 08/11/17 05:50 08/08/17 20:15 Clean Catch Midstream Urine Culture - Final C.albicans/C.dubliniensis Impressions: Foot X-Ray 08/08/17 10:25 IMPRESSION: RADIOGRAPHIC FINDINGS HIGHLY SUSPICIOUS FOR OSTEOMYELITIS INVOLVING THE 5TH METATARSAL AND CUBOID ABOVE WITH POSSIBLE INVOLVEMENT OF THE 4TH METATARSAL. SURGICAL CONSULTATION RECOMMENDED. Chest X-Ray 08/08/17 12:16 IMPRESSION: CARDIOMEGALY. NO ACUTE RADIOGRAPHIC FINDING IN THE CHEST. Assessment & Plan - Diagnosis (1) Homelessness Is this a current diagnosis for this admission?: Yes Plan: ? (2) Osteomyelitis Qualifiers: Osteomyelitis type: subacute Osteomyelitis location: foot Laterality: right Qualified Code(s): M86.271 - Subacute osteomyelitis, right ankle and foot Is this a current diagnosis for this admission?: Yes Plan: Continue antibiotics and local wound care for now. (3) Chronic kidney disease, stage 3 (moderate) Is this a current diagnosis for this admission?: No (4) Hypertension Qualifiers: Hypertension type: essential hypertension Qualified Code(s): I10 - Essential (primary) hypertension Is this a current diagnosis for this admission?: Yes Plan: Improved, continue carvedilol to 25 mg twice daily (5) Peripheral neuropathy Qualifiers: Peripheral neuropathy type: polyneuropathy, unspecified Qualified Code(s): G62.9 - Polyneuropathy, unspecified Is this a current diagnosis for this admission?: Yes Plan: Continue oxycodone to 10 mg every 6 hours as needed for pain. Add Senokot-S twice daily for constipation (6) Uncontrolled type 2 diabetes mellitus Qualifiers: Diabetes mellitus complication status: with hyperglycemia Diabetes mellitus detention insulin use: with manager terminal use Qualified Code(s): E11.65 - Type 2 diabetes mellitus with hyperglycemia; Z79.4 - detention (current) use of insulin; Z79.4 - detention (current) use of insulin; Z79.4 - detention ( current) use of insulin; Z79.4 - roasterman (current) use of insulin Is this a current diagnosis for this admission?: Yes Plan: Increase Levemir was changed to 40 units. - Time Time Spent with patient: 15-24 minutes Anticipated discharge: Home - Inpatient Certification Based on my medical assessment, after consideration of the patient's comorbidities, presenting symptoms, or acuity I expect that the services needed warrant INPATIENT care.: Yes I certify that my determination is in accordance with my understanding of Medicare's requirements for reasonable and necessary INPATIENT services [42 CFR 412.3e].: Yes Medical Necessity: Failure to Improve With Outpatient Therapy
[2017-08-12] MEDS: INSULIN DETEMIR 100 UNIT/ML 3 ML PEN SUBCUT SCH (23:25)
[2017-08-13] MEDS: OXYCODONE HCL IR 5 MG TABLET PO PRN ×3 (00:06→20:49)
[2017-08-13] MEDS: PIPERACILLIN SODIUM/TAZOBACTAM 3.375 GM in NORMAL SALINE 100 ML IV SCH ×3 (05:43→21:51)
[2017-08-13] MEDS: ENOXAPARIN SODIUM INJ 40 MG/0.4 ML DISP.SYRIN SUBCUT SCH (09:09)
[2017-08-13] MEDS: AMLODIPINE BESYLATE 10 MG TABLET PO SCH (09:12)
[2017-08-13] MEDS: LISINOPRIL 10 MG TABLET PO SCH (09:12)
[2017-08-13] MEDS: INSULIN LISPRO 100 UNIT/ML 3 ML VIAL SUBCUT PRN ×4 (09:12→21:52)
[2017-08-13] MEDS: CARVEDILOL 12.5 MG TABLET PO SCH ×2 (09:12→21:51)
--- NOTE | 2017-08-13 16:43 | PDOC PROGRESS REPORT ---
Subjective Progress Note for:: 08/13/17 Subjective:: 57-year-old male with poorly controlled diabetes hypertension presented to the emergency department with pain and ulceration on his right foot. He is homeless. He underwent amputation of the right fifth toe April 2017, for osteomyelitis. His hospital stay was prolonged because of his homelessness. He had a wound VAC on for an extended period of time. Ultimately, it was discontinued. He was discharged with recommendations to follow up with a wound care clinic. He was given prescriptions for medications and an appointment. Unfortunately, he was unable to keep the appointment or get his medications. When he came back to the hospital this time, x-ray of the right foot revealed ongoing osteomyelitis of the fourth and fifth metatarsals. He was also hyperglycemic with a blood sugar greater than 600. He was admitted for uncontrolled diabetes, as well as osteomyelitis in his right foot. He was seen by surgery on admission. They did not see a need for him to be hospitalized. They recommended that he simply follow-up with the general surgery clinic in 1-2 weeks after being discharged. Fortunately due to his homelessness, he is not in a position to be "discharged" because he would not likely get the care that he needed. August 09 He reports pain in his right foot. His blood pressure was better controlled. Blood sugars were better controlled as well. He is on Zosyn. August 10 No changes, except Lantus was increased from 20 units to 30 units at bedtime. August 11 No problems overnight. Aug 12 Complaint of stomach discomfort. No vomiting. He did not have a bowel movement today. Aug 13 No complaints today. Reason For Visit: OSTEOMYELITIS RT FOOT,UNCONTROLLED DM Physical Exam Vital Signs: Temp Pulse Resp BP Pulse Ox 99.0 F 61 16 136/59 H 97 08/13/17 12:42 08/13/17 12:42 08/13/17 12:42 08/13/17 12:42 08/13/17 12:42 Intake & Output 08/12/17 08/13/17 08/14/17 06:59 06:59 06:59 Intake Total 2490 3088 130 Balance 2490 3088 130 Weight 84.1 kg 84.5 kg General appearance: PRESENT: no acute distress Head exam: PRESENT: atraumatic, normocephalic Respiratory exam: PRESENT: clear to auscultation manuel. ABSENT: rales, rhonchi, wheezes Cardiovascular exam: PRESENT: RRR. ABSENT: diastolic murmur, rubs, systolic murmur GI/Abdominal exam: PRESENT: normal bowel sounds, soft. ABSENT: distended, guarding, mass, organolmegaly, rebound, tenderness Musculoskeletal exam: PRESENT: ambulatory, other - Right foot -status post fifth toe/ray amputation. The lateral aspect of the foot has has a open wound about 3 mm wide. There is granulation tissue present. There is no odor. The foot is nontender. The skin is extremely dry. Toenails are thick, and brittle Neurological exam: PRESENT: alert, awake, oriented to person, oriented to place , oriented to time, oriented to situation, CN II-XII grossly intact. ABSENT: motor sensory deficit Psychiatric exam: PRESENT: appropriate affect, normal mood. ABSENT: homicidal ideation, suicidal ideation Skin exam: PRESENT: dry, intact, warm. ABSENT: cyanosis, rash Results Laboratory Results: 08/11/17 05:50 08/11/17 05:50 Impressions: Foot X-Ray 08/08/17 10:25 IMPRESSION: RADIOGRAPHIC FINDINGS HIGHLY SUSPICIOUS FOR OSTEOMYELITIS INVOLVING THE 5TH METATARSAL AND CUBOID ABOVE WITH POSSIBLE INVOLVEMENT OF THE 4TH METATARSAL. SURGICAL CONSULTATION RECOMMENDED. Chest X-Ray 08/08/17 12:16 IMPRESSION: CARDIOMEGALY. NO ACUTE RADIOGRAPHIC FINDING IN THE CHEST. Assessment & Plan - Diagnosis (1) Homelessness Is this a current diagnosis for this admission?: Yes Plan: ? (2) Osteomyelitis Qualifiers: Osteomyelitis type: subacute Osteomyelitis location: foot Laterality: right Qualified Code(s): M86.271 - Subacute osteomyelitis, right ankle and foot Is this a current diagnosis for this admission?: Yes Plan: Continue antibiotics and local wound care for now. Suspect that at some point he can be transitioned to oral antibiotics and discharged "home" Yet to be determined. He is a great risk for readmission if his foot is not completely healed. (3) Chronic kidney disease, stage 3 (moderate) Is this a current diagnosis for this admission?: No (4) Hypertension Qualifiers: Hypertension type: essential hypertension Qualified Code(s): I10 - Essential (primary) hypertension Is this a current diagnosis for this admission?: Yes Plan: Improved, continue carvedilol to 25 mg twice daily, amlodipine 10 mg daily, and lisinopril daily. (5) Peripheral neuropathy Qualifiers: Peripheral neuropathy type: polyneuropathy, unspecified Qualified Code(s): G62.9 - Polyneuropathy, unspecified Is this a current diagnosis for this admission?: Yes Plan: Continue oxycodone to 10 mg every 6 hours as needed for pain. Add Senokot-S twice daily for constipation (6) Uncontrolled type 2 diabetes mellitus Qualifiers: Diabetes mellitus complication status: with hyperglycemia Diabetes mellitus ferry terminal agent insulin use: with care home use Qualified Code(s): E11.65 - Type 2 diabetes mellitus with hyperglycemia; Z79.4 - long-term (current) use of insulin; Z79.4 - intermediate project manager (current) use of insulin; Z79.4 - intermediate project manager ( current) use of insulin; Z79.4 - long-term (current) use of insulin Is this a current diagnosis for this admission?: Yes Plan: Continue Levemir 40 units at bedtime. Add Levemir 20 units QAM - Time Time Spent with patient: 15-24 minutes Medications reviewed and adjusted accordingly: Yes Anticipated discharge: Home - Inpatient Certification Medical Necessity: Need for IV Antibiotics
[2017-08-13] MEDS: ACETAMINOPHEN 325 MG TABLET PO PRN (20:50)
[2017-08-13] MEDS: INSULIN DETEMIR 100 UNIT/ML 3 ML PEN SUBCUT SCH (21:52)
[2017-08-14] MEDS: ACETAMINOPHEN 325 MG TABLET PO PRN (05:51)
[2017-08-14] MEDS: OXYCODONE HCL IR 5 MG TABLET PO PRN ×2 (05:51→18:17)
[2017-08-14] MEDS: PIPERACILLIN SODIUM/TAZOBACTAM 3.375 GM in NORMAL SALINE 100 ML IV SCH ×3 (05:51→21:20)
[2017-08-14] MEDS: INSULIN LISPRO 100 UNIT/ML 3 ML VIAL SUBCUT PRN ×4 (07:41→22:27)
[2017-08-14] MEDS: CARVEDILOL 12.5 MG TABLET PO SCH ×2 (09:31→21:20)
[2017-08-14] MEDS: AMLODIPINE BESYLATE 10 MG TABLET PO SCH (09:31)
[2017-08-14] MEDS: LISINOPRIL 10 MG TABLET PO SCH (09:31)
[2017-08-14] MEDS: INSULIN DETEMIR 100 UNIT/ML 3 ML PEN SUBCUT SCH ×2 (09:32→22:27)
[2017-08-14] MEDS: ENOXAPARIN SODIUM INJ 40 MG/0.4 ML DISP.SYRIN SUBCUT SCH (09:36)
[2017-08-14] MEDS ORDERED: INSULIN GLARGINE,HUM.REC.ANLOG 300 UNIT/3 ML INSULN.PEN SUBCUT SCH (10:00)
--- NOTE | 2017-08-14 16:43 | PROGRESS NOTE E ---
Progress Note NAME: LEEANNE WYLIE : 1960 AGE: 57Y DATE: 08/14/2017 ROOM: 335 SUBJECTIVE: The patient is currently lying in bed. Did discuss the patient's osteomyelitis and need for amputation. The patient was adamant that this is the first time he had ever had this conversation with anyone and was quite angry. The patient denied any other symptoms of nausea, vomiting, or diarrhea. No shortness of breath, dizziness, or chest pain. No fever or chills. The patient has been afebrile. Blood pressures have been in a good range, and the patient does not voice any other concerns at this time. REVIEW OF SYSTEMS: Rest of the review of systems negative. MEDICATIONS: Have been reviewed. OBJECTIVE: GENERAL: The patient is a 57-year-old -[place] male who is awake, alert, and oriented to person, place, time, and situation. He is verbal, conversational, and does not appear to be in any acute distress. VITAL SIGNS: Temperature is 98.0, pulse 69, respirations 18, blood pressure is 134/69, oxygen saturation is 99% on room air. SKIN: Warm and dry. No rash. He is not diaphoretic. HEENT: Pupils equal, round, reactive to light and accommodation. Conjunctivae are pink. No evidence of JVP. CARDIOVASCULAR: Heart is regular. There is no murmur or rub. CHEST: Clear, symmetrical, unlabored. ABDOMEN: Soft, nontender, nondistended. BACK: No CVA tenderness or sacral edema. EXTREMITIES: No clubbing or cyanosis. The patient's lower extremity is wrapped in appropriate dressing. DIAGNOSTICS: Lab values are as follows: Hematology obtained on 08/11/2017: WBCs are 5.6, hemoglobin is 13.1, hematocrit is 39.5, platelet count is 208,000. Chemistry obtained on 08/11/2017: Sodium is 139, potassium 4.0, chloride is 108, carbon dioxide 21, BUN 14, creatinine 1.13, glucose 65, calcium is 9.1. IMPRESSION AND PLAN: 1. OSTEOMYELITIS. Continue antibiotics and local wound care. The patient has been seen by Surgery. At this time, Surgery had deferred amputation given the patient has no disposition. The patient is currently homeless. Will contact social work to determine the status of the patient's Medicaid as he may need rehab placement after amputation. Will follow. 2. CHRONIC KIDNEY DISEASE STAGE III. The patient's creatinine is at baseline. 3. HYPERTENSION. Blood pressures have been reasonably controlled. Continue carvedilol, amlodipine, and lisinopril. 4. PERIPHERAL NEUROPATHY. Continue the patient's medications. 5. DIABETES MELLITUS TYPE 2, VERY POORLY CONTROLLED. Continue the patient's evening dose of Levemir. The patient is quite insulin resistant. DISPOSITION: The patient is a FULL CODE. Pending patient's symptomatology and diagnostic findings, will reevaluate in the a.m. The patient can proceed with amputation as soon as a disposition of rehab is available. Time spent on this followup including assessment, plan, physical examination, patient education, and review of records is 25 minutes. DICTATING PHYSICIAN: SARAH DUMONT NP [id number] PHY#: [id number] ID: [id number] JOB#: [id number] ACCT: [id number] cc: >
[2017-08-14] MEDS: HYDRALAZINE HCL INJ/PF 20 MG/1 ML SDV IV PRN (21:20)
[2017-08-15] MEDS: PIPERACILLIN SODIUM/TAZOBACTAM 3.375 GM in NORMAL SALINE 100 ML IV SCH ×3 (05:32→21:53)
[2017-08-15 06:48] LABS: HEMATOCRIT 38.5 % (37.9-51.0); HEMOGLOBIN 12.8 g/dL (13.5-17.0); MEAN CORPUSCULAR HEMOGLOBIN 28.3 pg (27.0-33.4); MEAN CORPUSCULAR HGB CONC 33.2 g/dL (32.0-36.0); MEAN CORPUSCULAR VOLUME 85 fl (80-97); PLATELET COUNT 201 10^3/uL (150-450); RED BLOOD COUNT 4.52 10^6/uL (4.35-5.55); RED CELL DISTRIBUTION WIDTH 15.4 % (11.5-14.0); WHITE BLOOD COUNT 7.1 10^3/uL (4.0-10.5)
[2017-08-15 07:30] LABS: ANION GAP 10 (5-19); BLOOD UREA NITROGEN 19 mg/dL (7-20); CALCIUM 9.4 mg/dL (8.4-10.2); CARBON DIOXIDE 22 mmol/L (22-30); CHLORIDE 108 mmol/L (98-107); GLUCOSE 180 mg/dL (75-110); POTASSIUM 4.3 mmol/L (3.6-5.0); SODIUM 139.7 mmol/L (137-145)
[2017-08-15] MEDS: LISINOPRIL 10 MG TABLET PO SCH (10:41)
[2017-08-15] MEDS: CARVEDILOL 12.5 MG TABLET PO SCH ×2 (10:42→21:53)
[2017-08-15] MEDS: AMLODIPINE BESYLATE 10 MG TABLET PO SCH (10:42)
[2017-08-15] MEDS: INSULIN DETEMIR 100 UNIT/ML 3 ML PEN SUBCUT SCH ×2 (10:44→21:53)
[2017-08-15] MEDS: ENOXAPARIN SODIUM INJ 40 MG/0.4 ML DISP.SYRIN SUBCUT SCH (10:45)
[2017-08-15] MEDS ORDERED: FUROSEMIDE INJ/PF 20 MG/2 ML SDV IV SCH ×2 (11:00→22:00)
[2017-08-15] MEDS ORDERED: FUROSEMIDE INJ/PF 20 MG/2 ML SDV IV ONE (13:30)
--- NOTE | 2017-08-15 16:23 | PDOC PROGRESS REPORT ---
Subjective Progress Note for:: 08/15/17 Subjective:: Complaint of right foot pain and ulceration. He does have a history of amputation of the fifth toe in April 2017. X-ray did confirm osteomyelitis of fourth and fifth metatarsal. Reason For Visit: OSTEOMYELITIS RT FOOT,UNCONTROLLED DM Physical Exam Vital Signs: Temp Pulse Resp BP Pulse Ox 98.2 F 59 L 18 161/70 H 99 08/15/17 12:14 08/15/17 12:14 08/15/17 12:14 08/15/17 12:14 08/15/17 12:14 Intake & Output 08/14/17 08/15/17 08/16/17 06:59 06:59 06:59 Intake Total 2222 2341 Balance 2222 2341 Weight 85.7 kg 85.2 kg General appearance: PRESENT: no acute distress, well-developed, well-nourished Head exam: PRESENT: atraumatic, normocephalic Eye exam: PRESENT: conjunctiva pink, EOMI, PERRLA. ABSENT: scleral icterus Ear exam: PRESENT: normal external ear exam Mouth exam: PRESENT: moist, tongue midline Neck exam: ABSENT: carotid bruit, JVD, lymphadenopathy, thyromegaly Respiratory exam: PRESENT: clear to auscultation manuel. ABSENT: rales, rhonchi, wheezes Cardiovascular exam: PRESENT: RRR. ABSENT: diastolic murmur, rubs, systolic murmur Pulses: PRESENT: normal dorsalis pedis pul GI/Abdominal exam: PRESENT: normal bowel sounds, soft. ABSENT: distended, guarding, mass, organolmegaly, rebound, tenderness Rectal exam: PRESENT: deferred Extremities exam: PRESENT: full ROM. ABSENT: calf tenderness, clubbing, pedal edema Musculoskeletal exam: PRESENT: deformity, other - s/p amputation 3rd and 4th toes R foot covered with dressing Neurological exam: PRESENT: alert, awake, oriented to person, oriented to place , oriented to time, oriented to situation, CN II-XII grossly intact. ABSENT: motor sensory deficit Psychiatric exam: PRESENT: appropriate affect, normal mood. ABSENT: homicidal ideation, suicidal ideation Skin exam: PRESENT: dry, intact, warm. ABSENT: cyanosis, rash Results Laboratory Results: 08/15/17 06:15 08/15/17 06:15 08/15/17 08/15/17 06:15 06:15 WBC 7.1 RBC 4.52 Hgb 12.8 L Hct 38.5 MCV 85 MCH 28.3 MCHC 33.2 RDW 15.4 H Plt Count 201 Sodium 139.7 Potassium 4.3 Chloride 108 H Carbon Dioxide 22 Anion Gap 10 BUN 19 Creatinine 1.22 Est GFR ( Amer) > 60 Est GFR (Non-Af Amer) > 60 Glucose 180 H Calcium 9.4 Magnesium 2.1 08/11/17 05:23 Foot - Right Gram Stain - Final 08/11/17 05:23 Foot - Right Wound Culture - Final Group B Beta Streptococcus Skin Keren No Anaerobic Organisms Impressions: Foot X-Ray 08/08/17 10:25 IMPRESSION: RADIOGRAPHIC FINDINGS HIGHLY SUSPICIOUS FOR OSTEOMYELITIS INVOLVING THE 5TH METATARSAL AND CUBOID ABOVE WITH POSSIBLE INVOLVEMENT OF THE 4TH METATARSAL. SURGICAL CONSULTATION RECOMMENDED. Chest X-Ray 08/08/17 12:16 IMPRESSION: CARDIOMEGALY. NO ACUTE RADIOGRAPHIC FINDING IN THE CHEST. Assessment & Plan - Time Time Spent with patient: 15-24 minutes Medications reviewed and adjusted accordingly: Yes Anticipated discharge: Home Within: within 72 hours - Inpatient Certification Medical Necessity: Need for IV Antibiotics, Risk of Complication if Not Cared For in Hospital - Plan Summary Plan Summary: Osteomyelitis-patient is currently on antibiotics and this will be continued. Patient states that he has no interest in amputation at this time. 2. Chronic kidney disease stage III stable 3. Hypertension relatively well controlled on carvedilol, amlodipine and lisinopril. 4. Peripheral neuropathy controlled 5. Type 2 diabetes mellitus currently on Levemir. Will continue sliding scale insulin
[2017-08-15] MEDS: OXYCODONE HCL IR 5 MG TABLET PO PRN (19:41)
[2017-08-15] MEDS: HYDRALAZINE HCL INJ/PF 20 MG/1 ML SDV IV PRN (21:53)
[2017-08-15] MEDS: INSULIN LISPRO 100 UNIT/ML 3 ML VIAL SUBCUT PRN (21:53)
[2017-08-16] MEDS: PIPERACILLIN SODIUM/TAZOBACTAM 3.375 GM in NORMAL SALINE 100 ML IV SCH ×3 (06:44→22:35)
[2017-08-16] MEDS: OXYCODONE HCL IR 5 MG TABLET PO PRN (06:56)
[2017-08-16] MEDS: AMLODIPINE BESYLATE 10 MG TABLET PO SCH (09:05)
[2017-08-16] MEDS: ENOXAPARIN SODIUM INJ 40 MG/0.4 ML DISP.SYRIN SUBCUT SCH (09:05)
[2017-08-16] MEDS: INSULIN LISPRO 100 UNIT/ML 3 ML VIAL SUBCUT PRN ×4 (09:05→22:45)
[2017-08-16] MEDS: LISINOPRIL 10 MG TABLET PO SCH (09:05)
[2017-08-16] MEDS: INSULIN DETEMIR 100 UNIT/ML 3 ML PEN SUBCUT SCH ×2 (11:26→22:45)
[2017-08-16] MEDS: CARVEDILOL 12.5 MG TABLET PO SCH ×2 (11:26→22:35)
--- NOTE | 2017-08-16 12:41 | PDOC PROGRESS REPORT ---
Subjective Progress Note for:: 08/16/17 Subjective:: Complaint of right foot pain and ulceration. He does have a history of amputation of the fifth toe in April 2017. X-ray did confirm osteomyelitis of fourth and fifth metatarsal. Reason For Visit: OSTEOMYELITIS RT FOOT,UNCONTROLLED DM Physical Exam Vital Signs: Temp Pulse Resp BP Pulse Ox 98.3 F 62 20 149/70 H 100 08/16/17 11:40 08/16/17 11:40 08/16/17 11:40 08/16/17 11:40 08/16/17 11:40 Intake & Output 08/15/17 08/16/17 08/17/17 06:59 06:59 06:59 Intake Total 2341 2219 Balance 2341 2219 Weight 85.2 kg 83.1 kg General appearance: PRESENT: no acute distress, well-developed, well-nourished Head exam: PRESENT: atraumatic, normocephalic Eye exam: PRESENT: conjunctiva pink, EOMI, PERRLA. ABSENT: scleral icterus Ear exam: PRESENT: normal external ear exam Mouth exam: PRESENT: moist, tongue midline Neck exam: ABSENT: carotid bruit, JVD, lymphadenopathy, thyromegaly Respiratory exam: PRESENT: clear to auscultation manuel. ABSENT: rales, rhonchi, wheezes Cardiovascular exam: PRESENT: RRR. ABSENT: diastolic murmur, rubs, systolic murmur Pulses: PRESENT: normal dorsalis pedis pul Vascular exam: PRESENT: normal capillary refill GI/Abdominal exam: PRESENT: normal bowel sounds, soft. ABSENT: distended, guarding, mass, organolmegaly, rebound, tenderness Rectal exam: PRESENT: deferred Extremities exam: PRESENT: full ROM. ABSENT: calf tenderness, clubbing, pedal edema Musculoskeletal exam: PRESENT: other - R foot in bandage, Neurological exam: PRESENT: alert, awake, oriented to person, oriented to place , oriented to time, oriented to situation, CN II-XII grossly intact. ABSENT: motor sensory deficit Psychiatric exam: PRESENT: appropriate affect, normal mood. ABSENT: homicidal ideation, suicidal ideation Skin exam: PRESENT: dry, warm. ABSENT: cyanosis, rash Results Laboratory Results: 08/15/17 06:15 08/15/17 06:15 Impressions: Foot X-Ray 08/08/17 10:25 IMPRESSION: RADIOGRAPHIC FINDINGS HIGHLY SUSPICIOUS FOR OSTEOMYELITIS INVOLVING THE 5TH METATARSAL AND CUBOID ABOVE WITH POSSIBLE INVOLVEMENT OF THE 4TH METATARSAL. SURGICAL CONSULTATION RECOMMENDED. Chest X-Ray 08/08/17 12:16 IMPRESSION: CARDIOMEGALY. NO ACUTE RADIOGRAPHIC FINDING IN THE CHEST. Assessment & Plan - Time Time Spent with patient: 15-24 minutes Within: within 72 hours - Plan Summary Plan Summary: Osteomyelitis-patient is currently on antibiotics and this will be continued. 2. Chronic kidney disease stage III stable 3. Hypertension relatively well controlled on carvedilol, amlodipine and lisinopril. 4. Peripheral neuropathy controlled 5. Type 2 diabetes mellitus currently on Levemir. Continue sliding scale insulin
[2017-08-16] MEDS ORDERED: OXYCODONE HCL IR 5 MG TABLET ONE (16:04)
[2017-08-17] MEDS: PIPERACILLIN SODIUM/TAZOBACTAM 3.375 GM in NORMAL SALINE 100 ML IV SCH ×3 (05:19→21:09)
[2017-08-17] MEDS: ENOXAPARIN SODIUM INJ 40 MG/0.4 ML DISP.SYRIN SUBCUT SCH ×2 (09:06→09:15)
[2017-08-17] MEDS: INSULIN LISPRO 100 UNIT/ML 3 ML VIAL SUBCUT PRN ×4 (09:06→21:42)
[2017-08-17] MEDS: INSULIN DETEMIR 100 UNIT/ML 3 ML PEN SUBCUT SCH ×2 (09:06→21:08)
[2017-08-17] MEDS: CARVEDILOL 12.5 MG TABLET PO SCH ×2 (09:07→21:42)
[2017-08-17] MEDS: LISINOPRIL 10 MG TABLET PO SCH (09:07)
[2017-08-17] MEDS: AMLODIPINE BESYLATE 10 MG TABLET PO SCH (09:07)
[2017-08-17] MEDS: OXYCODONE HCL IR 5 MG TABLET PO PRN ×2 (09:07→17:38)
--- NOTE | 2017-08-17 16:23 | PDOC PROGRESS REPORT ---
Subjective Progress Note for:: 08/17/17 Subjective:: Complaint of right foot pain and ulceration. He does have a history of amputation of the fifth toe in April 2017. X-ray did confirm osteomyelitis of fourth and fifth metatarsal. Reason For Visit: OSTEOMYELITIS RT FOOT,UNCONTROLLED DM Physical Exam Vital Signs: Temp Pulse Resp BP Pulse Ox 98.4 F 63 16 169/79 H 100 08/17/17 15:55 08/17/17 15:55 08/17/17 15:55 08/17/17 15:55 08/17/17 15:55 Intake & Output 08/16/17 08/17/17 08/18/17 06:59 06:59 06:59 Intake Total 2219 440 Balance 2219 440 Weight 84.9 kg General appearance: PRESENT: no acute distress Head exam: PRESENT: atraumatic Eye exam: PRESENT: conjunctiva pink, EOMI, PERRLA. ABSENT: scleral icterus Ear exam: PRESENT: normal external ear exam Neck exam: ABSENT: carotid bruit, JVD, lymphadenopathy, thyromegaly Respiratory exam: PRESENT: clear to auscultation manuel. ABSENT: rales, rhonchi, wheezes Cardiovascular exam: PRESENT: RRR. ABSENT: diastolic murmur, rubs, systolic murmur Pulses: PRESENT: normal dorsalis pedis pul GI/Abdominal exam: PRESENT: normal bowel sounds, soft. ABSENT: distended, guarding, mass, organolmegaly, rebound, tenderness Musculoskeletal exam: PRESENT: other - Dressing over R foot, no drainage noted Neurological exam: PRESENT: alert, awake, oriented to person, oriented to place , oriented to time, oriented to situation Results Laboratory Results: 08/15/17 06:15 08/15/17 06:15 Impressions: Foot X-Ray 08/08/17 10:25 IMPRESSION: RADIOGRAPHIC FINDINGS HIGHLY SUSPICIOUS FOR OSTEOMYELITIS INVOLVING THE 5TH METATARSAL AND CUBOID ABOVE WITH POSSIBLE INVOLVEMENT OF THE 4TH METATARSAL. SURGICAL CONSULTATION RECOMMENDED. Chest X-Ray 08/08/17 12:16 IMPRESSION: CARDIOMEGALY. NO ACUTE RADIOGRAPHIC FINDING IN THE CHEST. Assessment & Plan - Time Time Spent with patient: Less than 15 minutes Medications reviewed and adjusted accordingly: Yes Anticipated discharge: Home Within: when bed available - Inpatient Certification Medical Necessity: Need for IV Antibiotics - Plan Summary Plan Summary: 1.Osteomyelitis 5th Metatarsal and Cuboid-patient is currently on antibiotics and this will be continued. Cultures are growing Beta strep. Patient continues to decline amputation at this time 2. Chronic kidney disease stage III stable 3. Hypertension relatively well controlled on carvedilol, amlodipine and lisinopril. 4. Peripheral neuropathy controlled 5. Type 2 diabetes mellitus currently on Levemir. Continue sliding scale insulin 6. Disposition?
[2017-08-17 18:22] LABS: HEMATOCRIT 40.9 % (37.9-51.0); HEMOGLOBIN 13.5 g/dL (13.5-17.0); MEAN CORPUSCULAR HEMOGLOBIN 28.5 pg (27.0-33.4); MEAN CORPUSCULAR HGB CONC 32.9 g/dL (32.0-36.0); MEAN CORPUSCULAR VOLUME 86 fl (80-97); PLATELET COUNT 207 10^3/uL (150-450); RED BLOOD COUNT 4.73 10^6/uL (4.35-5.55)
[2017-08-17] MEDS: HYDRALAZINE HCL INJ/PF 20 MG/1 ML SDV IV PRN (20:04)
[2017-08-18] MEDS: PIPERACILLIN SODIUM/TAZOBACTAM 3.375 GM in NORMAL SALINE 100 ML IV SCH ×3 (06:33→22:05)
[2017-08-18 07:54] LABS: ANION GAP 8 (5-19); BLOOD UREA NITROGEN 19 mg/dL (7-20); CALCIUM 9.7 mg/dL (8.4-10.2); CARBON DIOXIDE 22 mmol/L (22-30); CHLORIDE 107 mmol/L (98-107); GLUCOSE 253 mg/dL (75-110); POTASSIUM 4.8 mmol/L (3.6-5.0); SODIUM 137.3 mmol/L (137-145)
[2017-08-18] MEDS: INSULIN LISPRO 100 UNIT/ML 3 ML VIAL SUBCUT PRN ×3 (08:06→22:04)
[2017-08-18] MEDS: LISINOPRIL 10 MG TABLET PO SCH (09:47)
[2017-08-18] MEDS: CARVEDILOL 12.5 MG TABLET PO SCH ×2 (09:47→22:04)
[2017-08-18] MEDS: AMLODIPINE BESYLATE 10 MG TABLET PO SCH (09:47)
[2017-08-18] MEDS: INSULIN DETEMIR 100 UNIT/ML 3 ML PEN SUBCUT SCH ×2 (09:47→22:05)
--- NOTE | 2017-08-18 11:37 | PDOC PROGRESS REPORT ---
Subjective Progress Note for:: 08/18/17 Subjective:: Complaint of right foot pain and ulceration. He does have a history of amputation of the fifth toe in April 2017. X-ray did confirm osteomyelitis of fourth and fifth metatarsal. Patient's social situation is still under review. I have asked the CM to look into his case to see what can be done. Although he can be changed to po abx he will need dressing of wound. Patient says he is unable to do that himself Reason For Visit: OSTEOMYELITIS RT FOOT,UNCONTROLLED DM Physical Exam Vital Signs: Temp Pulse Resp BP Pulse Ox 98.0 F 68 20 178/80 H 98 08/18/17 08:00 08/18/17 08:00 08/18/17 08:00 08/18/17 08:00 08/18/17 08:00 Intake & Output 08/17/17 08/18/17 08/19/17 06:59 06:59 06:59 Intake Total 440 1160 Balance 440 1160 Weight 84.9 kg 84 kg General appearance: PRESENT: no acute distress, well-developed, well-nourished Head exam: PRESENT: atraumatic, normocephalic Eye exam: PRESENT: conjunctiva pink, EOMI, PERRLA. ABSENT: scleral icterus Ear exam: PRESENT: normal external ear exam Mouth exam: PRESENT: moist, tongue midline Neck exam: ABSENT: carotid bruit, JVD, lymphadenopathy, thyromegaly Respiratory exam: PRESENT: clear to auscultation manuel. ABSENT: rales, rhonchi, wheezes Cardiovascular exam: PRESENT: RRR. ABSENT: diastolic murmur, rubs, systolic murmur Pulses: PRESENT: normal dorsalis pedis pul GI/Abdominal exam: PRESENT: normal bowel sounds, soft. ABSENT: distended, guarding, mass, organolmegaly, rebound, tenderness Rectal exam: PRESENT: deferred Extremities exam: PRESENT: full ROM. ABSENT: calf tenderness, clubbing, pedal edema Musculoskeletal exam: PRESENT: other - 5th toe amputation, dressing R foot, dry skin and cheonic dermatitis Neurological exam: PRESENT: alert, awake, oriented to person, oriented to place , oriented to time, oriented to situation, CN II-XII grossly intact. ABSENT: motor sensory deficit Psychiatric exam: PRESENT: appropriate affect, normal mood. ABSENT: homicidal ideation, suicidal ideation Skin exam: PRESENT: dry, intact, warm. ABSENT: cyanosis, rash Results Laboratory Results: 08/17/17 17:46 08/18/17 06:56 08/17/17 08/18/17 17:46 06:56 WBC 8.0 RBC 4.73 Hgb 13.5 Hct 40.9 MCV 86 MCH 28.5 MCHC 32.9 RDW 16.0 H Plt Count 207 Sodium 137.3 Potassium 4.8 Chloride 107 Carbon Dioxide 22 Anion Gap 8 BUN 19 Creatinine 1.21 Est GFR ( Amer) > 60 Est GFR (Non-Af Amer) > 60 Glucose 253 H Calcium 9.7 Impressions: Foot X-Ray 08/08/17 10:25 IMPRESSION: RADIOGRAPHIC FINDINGS HIGHLY SUSPICIOUS FOR OSTEOMYELITIS INVOLVING THE 5TH METATARSAL AND CUBOID ABOVE WITH POSSIBLE INVOLVEMENT OF THE 4TH METATARSAL. SURGICAL CONSULTATION RECOMMENDED. Chest X-Ray 08/08/17 12:16 IMPRESSION: CARDIOMEGALY. NO ACUTE RADIOGRAPHIC FINDING IN THE CHEST. Assessment & Plan - Time Time Spent with patient: 15-24 minutes Medications reviewed and adjusted accordingly: Yes Anticipated discharge: Other - unknown - Inpatient Certification Medical Necessity: Need for IV Antibiotics - Plan Summary Plan Summary: 1.Osteomyelitis 4th and 5th Metatarsal and Cuboid-patient is currently on IV antibiotics and this will be continued. Cultures are growing Beta strep. Patient continues to decline amputation at this time 2. Chronic kidney disease stage III stable 3. Hypertension relatively well controlled on carvedilol, amlodipine and lisinopril. 4. Peripheral neuropathy controlled 5. Type 2 diabetes mellitus currently on Levemir. Continue sliding scale insulin 6. Disposition?? Contact director of physiotherapy services again for input
[2017-08-18] MEDS: OXYCODONE HCL IR 5 MG TABLET PO PRN ×2 (16:13→23:46)
[2017-08-18] MEDS: HYDRALAZINE HCL INJ/PF 20 MG/1 ML SDV IV PRN (22:04)
[2017-08-19] MEDS: PIPERACILLIN SODIUM/TAZOBACTAM 3.375 GM in NORMAL SALINE 100 ML IV SCH (06:03)
[2017-08-19] MEDS: INSULIN LISPRO 100 UNIT/ML 3 ML VIAL SUBCUT PRN ×3 (07:53→22:53)
[2017-08-19] MEDS: INSULIN DETEMIR 100 UNIT/ML 3 ML PEN SUBCUT SCH ×2 (09:50→22:52)
[2017-08-19] MEDS: AMLODIPINE BESYLATE 10 MG TABLET PO SCH (09:50)
[2017-08-19] MEDS: LISINOPRIL 10 MG TABLET PO SCH (09:50)
[2017-08-19] MEDS: ENOXAPARIN SODIUM INJ 40 MG/0.4 ML DISP.SYRIN SUBCUT SCH (09:50)
[2017-08-19] MEDS: CARVEDILOL 12.5 MG TABLET PO SCH ×2 (09:50→22:55)
[2017-08-19] MEDS ORDERED: PIPERACILLIN SODIUM/TAZOBACTAM 3.375 GM in NORMAL SALINE 100 ML IV ONE (14:00)
--- NOTE | 2017-08-19 14:56 | PDOC PROGRESS REPORT ---
Subjective Progress Note for:: 08/19/17 Subjective:: Complaint of right foot pain and ulceration. He does have a history of amputation of the fifth toe in April 2017. X-ray did confirm osteomyelitis of fourth and fifth metatarsal. Patient's social situation is still under review. Discussed with Filemon today what can be done and at this time it appears we will ensure that he has follow up at the wound clinic and will supply his meds as appropriate but otherwise he needs to follow up with his disability process Reason For Visit: OSTEOMYELITIS RT FOOT,UNCONTROLLED DM Physical Exam Vital Signs: Temp Pulse Resp BP Pulse Ox 97.8 F 62 18 144/63 H 97 08/19/17 11:33 08/19/17 11:33 08/19/17 11:33 08/19/17 11:33 08/19/17 11:33 Intake & Output 08/18/17 08/19/17 08/20/17 06:59 06:59 06:59 Intake Total 1160 980 Balance 1160 980 Weight 84 kg General appearance: PRESENT: no acute distress Head exam: PRESENT: atraumatic, normocephalic Eye exam: PRESENT: conjunctiva pink, EOMI, PERRLA. ABSENT: scleral icterus Ear exam: PRESENT: normal external ear exam Mouth exam: PRESENT: moist, tongue midline Neck exam: ABSENT: carotid bruit, JVD, lymphadenopathy, thyromegaly Respiratory exam: PRESENT: clear to auscultation manuel. ABSENT: rales, rhonchi, wheezes Cardiovascular exam: PRESENT: RRR. ABSENT: diastolic murmur, rubs, systolic murmur Pulses: PRESENT: normal dorsalis pedis pul Vascular exam: PRESENT: normal capillary refill GI/Abdominal exam: PRESENT: normal bowel sounds, soft. ABSENT: distended, guarding, mass, organolmegaly, rebound, tenderness Rectal exam: PRESENT: deferred Extremities exam: PRESENT: full ROM. ABSENT: calf tenderness, clubbing, pedal edema Neurological exam: PRESENT: alert, awake, oriented to person, oriented to place , oriented to time, oriented to situation, CN II-XII grossly intact. ABSENT: motor sensory deficit Psychiatric exam: PRESENT: appropriate affect, normal mood. ABSENT: homicidal ideation, suicidal ideation Skin exam: PRESENT: dry - chronic skin changes, very dry skin, amputation 5th toe, warm. ABSENT: cyanosis, rash Results Laboratory Results: 08/17/17 17:46 08/18/17 06:56 Impressions: Foot X-Ray 08/08/17 10:25 IMPRESSION: RADIOGRAPHIC FINDINGS HIGHLY SUSPICIOUS FOR OSTEOMYELITIS INVOLVING THE 5TH METATARSAL AND CUBOID ABOVE WITH POSSIBLE INVOLVEMENT OF THE 4TH METATARSAL. SURGICAL CONSULTATION RECOMMENDED. Chest X-Ray 08/08/17 12:16 IMPRESSION: CARDIOMEGALY. NO ACUTE RADIOGRAPHIC FINDING IN THE CHEST. Assessment & Plan - Plan Summary Plan Summary: 1.Osteomyelitis 4th and 5th Metatarsal and Cuboid-patient is currently on IV Zosyn, Day 11. There is no further intervention planned and patient to be dc in am if he remains stable. Cultures are growing Beta strep. 2. Chronic kidney disease stage III stable 3. Hypertension relatively well controlled on carvedilol, amlodipine and lisinopril. 4. Peripheral neuropathy controlled 5. Type 2 diabetes mellitus currently on Levemir. Continue sliding scale insulin 6. Disposition "home" in am
[2017-08-19] MEDS: OXYCODONE HCL IR 5 MG TABLET PO PRN (20:32)
[2017-08-19] MEDS: HYDRALAZINE HCL INJ/PF 20 MG/1 ML SDV IV PRN (22:54)
[2017-08-20] MEDS: PIPERACILLIN SODIUM/TAZOBACTAM 3.375 GM in NORMAL SALINE 100 ML IV SCH ×2 (01:16→06:24)
[2017-08-20] MEDS ORDERED: PIPERACILLIN/TAZOBACTAM 3.375 GM VIAL IV ONE (03:00)
[2017-08-20] MEDS: INSULIN LISPRO 100 UNIT/ML 3 ML VIAL SUBCUT PRN ×2 (08:23→12:12)
[2017-08-20] MEDS: LISINOPRIL 10 MG TABLET PO SCH (09:30)
[2017-08-20] MEDS: AMLODIPINE BESYLATE 10 MG TABLET PO SCH (09:31)
[2017-08-20] MEDS: CARVEDILOL 12.5 MG TABLET PO SCH (09:32)
[2017-08-20] MEDS: OXYCODONE HCL IR 5 MG TABLET PO PRN (09:32)
[2017-08-20] MEDS: INSULIN DETEMIR 100 UNIT/ML 3 ML PEN SUBCUT SCH (09:36)
[2017-08-20] MEDS: ENOXAPARIN SODIUM INJ 40 MG/0.4 ML DISP.SYRIN SUBCUT SCH (09:42)
[2017-08-20 11:48] VITALS: BP 155/66
--- NOTE | 2017-08-20 17:13 | PDOC DISCHARGE SUMMARY ---
General - Admit/Disc Date/PCP Admission Date/Primary Care Provider: 08/08/17 13:06 Discharge Date: 08/20/17 - Discharge Diagnosis (1) Osteomyelitis Is this a current diagnosis for this admission?: Yes (2) Diabetes mellitus Is this a current diagnosis for this admission?: Yes (3) Noncompliance Is this a current diagnosis for this admission?: Yes (4) Homelessness Is this a current diagnosis for this admission?: Yes (5) Opioid dependence with current use Is this a current diagnosis for this admission?: Yes - Additional Information Resuscitation Status: Full Code Discharge Diet: Diabetic Discharge Activity: Activity As Tolerated Prescriptions: Oxycodone HCl [Oxy-Ir 5 mg Tablet] 10 mg PO Q6HP PRN #14 tablet PRN Reason: Amlodipine Besylate [Norvasc 10 mg Tablet] 10 mg PO DAILY #30 tablet Amox Tr/Potassium Clavulanate [Augmentin 875-125 mg Tablet] 1 tab PO BID #20 tablet Carvedilol [Coreg 12.5 mg Tablet] 25 mg PO Q12 #60 tablet Insulin Detemir [Levemir Insulin 100 units/mL] 30 unit SUBCUT BID #10 insuln.pen Lisinopril [Prinivil 10 mg Tablet] 20 mg PO DAILY #30 tablet Home Medications: Amlodipine Besylate [Norvasc 10 mg Tablet] 10 mg PO DAILY #30 tablet 08/20/17 Amox Tr/Potassium Clavulanate [Augmentin 875-125 mg Tablet] 1 tab PO BID #20 tablet 08/20/17 Carvedilol [Coreg 12.5 mg Tablet] 25 mg PO Q12 #60 tablet 08/20/17 Insulin Detemir [Levemir Insulin 100 units/mL] 30 unit SUBCUT BID #10 insuln.pen 08/20/17 Lisinopril [Prinivil 10 mg Tablet] 20 mg PO DAILY #30 tablet 08/20/17 Oxycodone HCl [Oxy-Ir 5 mg Tablet] 10 mg PO Q6HP PRN #14 tablet 08/20/17 History of Present Illness Patient complains of: Right foot infection History of Present Illness: LEEANNE WYLIE is a 57 year old male Hospital Course Hospital Course: This patient was admitted with hypoglycemia with the initial glucose more than 600. Patient apparently has social issues with him currently being homeless and has been noncompliant with his medications as well as with his wound care. He has a history of limitation of the right fifth toe in April 2017 and x- ray done this admission revealed osteomyelitis of fourth and fifth metatarsals. He was seen by the surgical team and although amputation was been recommended this will not be done until patient's social situation is stabilized. Patient additionally declines to have amputation at this time. He has been receiving intravenous antibiotics while in hospital and has remained stable. Patient has been advised on need to be compliant with his medications and treatment and arrangement has been made for him to follow-up at the wound clinic for care of his right foot wound. Unfortunately patient really expresses no desire to be compliant with his medical treatment and he is at very high risk for readmission in fact there is some as I doubt this commitment to taking care of himself Physical Exam Vital Signs: Temp Pulse Resp BP Pulse Ox 98.3 F 60 18 140/73 H 100 08/20/17 07:48 08/20/17 07:48 08/20/17 07:48 08/20/17 07:48 08/20/17 07:48 Intake & Output 08/19/17 08/20/17 08/21/17 06:59 06:59 06:59 Intake Total 980 1520 Balance 980 1520 Weight 83.9 kg General appearance: PRESENT: no acute distress Head exam: PRESENT: atraumatic Eye exam: PRESENT: conjunctiva pink, EOMI, PERRLA. ABSENT: scleral icterus Respiratory exam: PRESENT: clear to auscultation manuel. ABSENT: rales, rhonchi, wheezes Cardiovascular exam: PRESENT: RRR. ABSENT: diastolic murmur, rubs, systolic murmur GI/Abdominal exam: PRESENT: normal bowel sounds, soft. ABSENT: distended, guarding, mass, organolmegaly, rebound, tenderness Rectal exam: PRESENT: deferred Extremities exam: PRESENT: other - R foot dry with a non draining wound on lateral aspect of foot, not erythematous Musculoskeletal exam: PRESENT: other - R 5th toe amputation Neurological exam: PRESENT: alert, awake, oriented to person, oriented to place , oriented to time, oriented to situation, CN II-XII grossly intact. ABSENT: motor sensory deficit Skin exam: PRESENT: dry, rash. ABSENT: erythema Results Laboratory Results: 08/17/17 17:46 08/18/17 06:56 Impressions: Foot X-Ray 08/08/17 10:25 IMPRESSION: RADIOGRAPHIC FINDINGS HIGHLY SUSPICIOUS FOR OSTEOMYELITIS INVOLVING THE 5TH METATARSAL AND CUBOID ABOVE WITH POSSIBLE INVOLVEMENT OF THE 4TH METATARSAL. SURGICAL CONSULTATION RECOMMENDED. Chest X-Ray 08/08/17 12:16 IMPRESSION: CARDIOMEGALY. NO ACUTE RADIOGRAPHIC FINDING IN THE CHEST. Qualifiers - * PATEINT BEING DISCHARGED WITH ANY OF THE FOLLOWING DIAGNOSIS?: No Plan Discharge Plan: Arrangements have been made for follow-up with the wound clinic however I highly question patient compliance and willingness to help himself. When I told him I was not going to be giving him limited amounts of narcotics he was not happy with me. Patient is at very high risk for readmission likely very soon Time Spent: Greater than 30 Minutes
== END 2017-08-20 15:56 | disposition home or self-care (01) | DRG 540 ==
LOC: ER 09:31 → EH 13:06 → 3S 08-10 05:17 → 2N 08-16 05:50
PROVIDERS: ADMIT Internal Medicine; ATTEND Internal Medicine
DX: M86.171 Other acute osteomyelitis, right ankle and foot (principal); F11.20 Opioid dependence, uncomplicated; E11.65 Type 2 diabetes mellitus with hyperglycemia; E11.22 Type 2 diabetes mellitus with diabetic chronic kidney disease; I12.9 Hypertensive chronic kidney disease with stage 1 through stage 4 chronic kidney disease, or unspecified chronic kidney disease; N18.3 Chronic kidney disease, stage 3 (moderate); E11.42 Type 2 diabetes mellitus with diabetic polyneuropathy; E78.5 Hyperlipidemia, unspecified; B95.1 Streptococcus, group B, as the cause of diseases classified elsewhere; F41.8 Other specified anxiety disorders; Z79.4 Long term (current) use of insulin; Z79.84 Long term (current) use of oral hypoglycemic drugs; Z91.19 Patient's noncompliance with other medical treatment and regimen; Z59.0 Homelessness; Z89.421 Acquired absence of other right toe(s)
CPT/HCPCS: 36415; 71045; 80048; 80053; 80076; 80307; 81001; 82010; 82803; 82962; 83036; 83735; 85025; 85027; 85610; 85652; 86140; 87040; 87070; 87075; 87077; 87086; 87205; 93005; 93010; 96367; 99285; J0360; J1170; J1650; J1815; J2543; J3370; J7030

== ENCOUNTER 2017-09-02 16:27 | Emergency (ER) | payer SELFPAY ==
[2017-09-02 16:48] VITALS: BP 224/86
[2017-09-02] MEDS ORDERED: OXYCODONE-ACETAMINOPHEN 5-325 MG TABLET PO ONE (18:03)
--- NOTE | 2017-09-02 18:10 | ER Document Report ---
ED General - General Chief Complaint: Medication Refill Stated Complaint: MED REFILL Time Seen by Provider: 09/02/17 17:48 Notes: 57-year-old male with a history of uncontrolled diabetes, uncontrolled hypertension, acute renal failure, who is noncompliant with treatment, presents today for right foot pain and requesting refill of pain medication. Patient had amputation of right little toe in April and was recently admitted for osteomylitis. pt is homeless. pt states he can not afford antibiotic. he just wants his pain medication. he denies fever, chest pain, shortness of breath. pt reports he was seen at the [facility] recently for same and told his foot was still infected and referred to wound care clinic. TRAVEL OUTSIDE OF THE [place] IN LAST 30 DAYS: No - HPI Onset: Other - since April Onset/Duration: Persistent, Worse Associated symptoms: None Exacerbated by: Walking Relieved by: Denies - Related Data Allergies/Adverse Reactions: insulin regular [From Novolin 70/30] Allergy (Unknown, Verified 09/02/17 16:37) insulin isophane (NPH) [From Novolin 70/30] Allergy (Verified 09/02/17 16:37) metformin Allergy (Verified 09/02/17 16:37) Past Medical History - General Information source: Patient - Social History Smoking Status: Unknown if Ever Smoked Frequency of alcohol use: None Drug Abuse: None Lives with: Homeless Family History: Reviewed & Not Pertinent - Past Medical History Cardiac Medical History: Reports: Hx Hypercholesterolemia, Hx Hypertension Endocrine Medical History: Reports: Hx Diabetes Mellitus Type 1, Hx Diabetes Mellitus Type 2 Renal/ Medical History: Denies: Hx Peritoneal Dialysis Psychiatric Medical History: Reports: Hx Depression Past Surgical History: Reports: Hx Abdominal Surgery - umbilical hernia repair, Hx Orthopedic Surgery - fifth right toe amputated, Other - Umbilical hernia repair, amputation right 5th digit with 5t metatarsal bone Review of Systems - Review of Systems Constitutional: No symptoms reported EENT: No symptoms reported Cardiovascular: No symptoms reported Respiratory: No symptoms reported Gastrointestinal: No symptoms reported Genitourinary: No symptoms reported Male Genitourinary: No symptoms reported Musculoskeletal: See HPI Skin: No symptoms reported Hematologic/Lymphatic: No symptoms reported Neurological/Psychological: No symptoms reported Physical Exam - Vital signs Vitals: Temp Pulse Resp BP Pulse Ox 98.0 F 91 20 224/86 H 99 09/02/17 16:47 09/02/17 16:47 09/02/17 16:47 09/02/17 16:47 09/02/17 16:47 Interpretation: Normal - Notes Notes: pt refused to let me examine his foot. he refused to take off his shoe - General General appearance: Appears well, Alert - HEENT Head: Normocephalic, Atraumatic Eyes: Normal Pupils: PERRL - Respiratory Respiratory status: No respiratory distress - Cardiovascular Heart sounds: Normal auscultation Murmur: No - Neurological Neuro grossly intact: Yes Cognition: Normal Orientation: AAOx4 [place] Coma Scale Eye Opening: Spontaneous [place] Coma Scale Verbal: Oriented [place] Coma Scale Motor: Obeys Commands [place] Coma Scale Total: 15 Speech: Normal - Psychological Associated symptoms: Agitated, Angry Course - Re-evaluation Re-evalutation: 09/02/17 18:26 Patient refused to remove his shoe for physical exam. He said he just wanted refills of his pain medication so that [facility] I explained to the patient that I reviewed his chart and saw his recent diagnosis of a bone infection and I needed to evaluate his foot. He told me that he knew it was still infected but he could not do anything about it and just wanted his pain medication. I explained to him that ED does not refill pain medications, but we would evaluate his wound for infection and treat him appropriately. I emphasized that he needed further evaluation of this potentially dangerous infection. Patient became agitated and refused any further treatment. I explained to patient that we could get surgery and social work involved and try to help him get to his wound care appointments. Patient was unwilling to participate in this. 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
== END 2017-09-02 18:20 | disposition left against medical advice (07) ==
LOC: ER 16:27
DX: E11.622 Type 2 diabetes mellitus with other skin ulcer (principal); M79.671 Pain in right foot; I10 Essential (primary) hypertension; N17.9 Acute kidney failure, unspecified; Z91.14 Patient's other noncompliance with medication regimen; Z89.421 Acquired absence of other right toe(s)
CPT/HCPCS: 99281

== ENCOUNTER 2017-09-03 11:20 | Emergency (ER) | payer SELFPAY ==
--- NOTE | 2017-09-03 12:37 | ER Document Report ---
HPI - HPI Pain Level: Denies Notes: Patient is a 57-year-old male with a history of noncompliance, uncontrolled diabetes, osteomyelitis, previous fifth toe of the right foot amputation in April 2017, recent admission due to osteomyelitis and uncontrolled diabetes in July 2017/1 month ago, and opioid dependence who presents to the ED complaining of bilateral feet pain with the right being worse than the left. Patient states that he is homeless and has to walk everywhere he goes. Patient states that he is here only for pain medication to help him get through each day when he is to ambulate. Patient states that he has been doing his own wound dressing and has not been seen by wound clinic. Patient has not been seen by primary care physician. Patient has not performed any of the follow-up as recommended to him status post discharge from the hospital 1 month ago. Patient was evaluated yesterday, but left AMA due to "time constraints." He declined to have any physical exam performed on his foot as well as being placed on any antibiotics. Patient has no other concerns or complaints. He is still eating and drinking without any difficulties. He is urinating normally having normal bowel movements. Denies any headache, fever, neck pain, URI, sore throat, chest pain, palpitations, syncope, cough, shortness of breath, wheeze, dyspnea, abdominal pain, nausea/vomiting/diarrhea, urinary retention, dysuria, hematuria, or rash. - ROS Systems Reviewed and Negative: Yes All other systems reviewed and negative - CONSTITUTIONAL Constitutional: DENIES: Fever, Chills Past Medical History - Social History Smoking Status: Current Every Day Smoker Frequency of alcohol use: None Drug Abuse: None Family History: Reviewed & Not Pertinent Patient has suicidal ideation: No Patient has homicidal ideation: No - Past Medical History Cardiac Medical History: Reports: Hx Hypercholesterolemia, Hx Hypertension Endocrine Medical History: Reports: Hx Diabetes Mellitus Type 1, Hx Diabetes Mellitus Type 2 Renal/ Medical History: Denies: Hx Peritoneal Dialysis Psychiatric Medical History: Reports: Hx Depression Past Surgical History: Reports: Hx Abdominal Surgery - umbilical hernia repair, Hx Orthopedic Surgery - fifth right toe amputated, Other - Umbilical hernia repair, amputation right 5th digit with 5t metatarsal bone Vertical Provider Document - CONSTITUTIONAL Agree With Documented VS: Yes Notes: PHYSICAL EXAMINATION: GENERAL: Well-appearing, well-nourished and in no acute distress. LUNGS: Breath sounds clear to auscultation bilaterally and equal. No wheezes rales or rhonchi. HEART: Regular rate and rhythm without murmurs, rubs, gallops. Musculoskeletal: FROM to passive/active. Strength 5+/5. + amputation of 5th digit. 3-4th digits of right foot are darkened and tender to palp. + pitting edema b/l Rt foot >Lt. There is drainage from the amputation site and some erythema/tenderness. There is a somewhat foul odor as well. Pt would not allow for further evaluation of the foot, nor removal of his bandage/wrap. Extremities: Peripheral pulses 1+. NEUROLOGICAL: Normal speech, limping gait. Normal sensory, motor exams PSYCH: Normal mood, normal affect. SKIN: see MSK exam. - INFECTION CONTROL TRAVEL OUTSIDE OF THE [place] IN LAST 30 DAYS: No - RESPIRATORY O2 Sat by Pulse Oximetry: 100 Course - Re-evaluation Re-evalutation: 09/03/17 12:32 Patient is an afebrile, well-hydrated, 57-year-old male who presents to the ED with bilateral foot pain with the right worse than the left, suspect ongoing osteomyelitis and infection. Vitals are acceptable. Patient would barely allow any investigation into his foot. Patient does have leaking from his previous amputation site and tenderness into his foot and toes to palpation. I have a high suspicion of continued osteomyelitis. Patient has been noncompliant with his medications and only came to the emergency department " for pain medication." Patient was told when he was discharged from the hospital last month that he most likely needed his other toes amputated, but patient declined at that time. According to previous notes patient has been very noncompliant in the past as well. Thoroughly reviewed with patient that the infection is most likely the cause of his pain and that it needs to be treated appropriately. Patient states that we are not "hearing him correctly" and he just wants "pain medications." Patient verbalized understanding that his toes most likely needs to be cut off, but states "I have lived a prosperous life and I just want my pain medication and nothing else." I thoroughly reviewed the risks and benefits of discharged on solely pain medication including that he could become septic and . Patient verbalized understanding of this. Patient declined any further evaluation including labs and imaging which I wanted to obtain. I did consult with Dr. Whiting who spoke with the patient as well. At this time he is being very unreasonable and refuses any treatment or Rx for antibiotics. Pt will be signing out AMA. I will give him a short course of pain medication after discussion with Dr. Whiting. I expect that he will return sooner rather than later and this issue will arise again. Advised pt to check with his PCM this week. Schedule an appoint with a wound clinic. Return to the ED with any worsening/concerning symptoms otherwise as reviewed discharge. Patient is in agreement. - Vital Signs Vital signs: Temp Pulse Resp BP Pulse Ox 98.0 F 83 18 188/78 H 100 09/03/17 11:29 09/03/17 11:29 09/03/17 11:29 09/03/17 11:29 09/03/17 11:29 Discharge - Discharge Clinical Impression: Right foot pain Condition: Stable Disposition: AGAINST MEDICAL ADVICE Additional Instructions: You have a serious foot infection that needs to be treated with antibiotics and most likely amputation based on your previous admission last month. Your being noncompliant at this time with follow-ups with the wound clinic that was recommended as well as antibiotics and wound dressing changes. Understand that pain medications will not make the pain go away as there is an infection in your foot. This infection could lead to an infection in your blood and if not appropriately treated. You have declined any lab work and imaging today to further evaluate the extent of the probable infection. Keep the skin clean Wash with soap and water Tylenol/ibuprofen if needed Triple antibiotic ointment daily Take medication as directed Monitor for any worsening symptoms Recheck with your PCM in 3-5 days Schedule an appointment with the wound clinic Consider consult with General Surgeon for ongoing/worsening symptoms Return to the ED with any worsening symptoms and/or development of fever, headache, chest pain, palpitations, syncope, shortness of breath, trouble breathing, abdominal pain, n/v/d, abscess, purulent discharge, red streaks, worsening swelling, or other worsening symptoms that are concerning to you. Prescriptions: Oxycodone HCl [Oxycodone HCl 10 MG Tablet] 1 tab PO TID #15 tablet Forms: Elevated Blood Pressure Referrals: MARICRUZ GALINDO MD [ACTIVE STAFF] - Follow up in 3-5 days
[2017-09-03 12:56] VITALS: BP 164/89
== END 2017-09-03 13:28 | disposition left against medical advice (07) ==
LOC: ER 11:20
DX: M79.671 Pain in right foot (principal); Z89.421 Acquired absence of other right toe(s); M79.672 Pain in left foot; E11.9 Type 2 diabetes mellitus without complications; F17.200 Nicotine dependence, unspecified, uncomplicated; I10 Essential (primary) hypertension; Z91.14 Patient's other noncompliance with medication regimen; Z53.29 Procedure and treatment not carried out because of patient's decision for other reasons
CPT/HCPCS: 99283

== ENCOUNTER 2017-09-06 13:14 | Emergency (ER) | payer SELFPAY ==
--- NOTE | 2017-09-06 13:51 | ER Document Report ---
ED Medical Screen (RME) - General Chief Complaint: Wound Recheck Stated Complaint: FOOT PAIN Time Seen by Provider: 09/06/17 13:43 Notes: Patient presents with chronic foot wound on right lower extremity. Patient has been here on the and this month for similar issues and had left AMA asking for pain medication. Today, he is requesting treatment due to his foot wound. He is currently not on any antibiotics. Wound is foul-smelling. I have greeted and performed a rapid initial assessment of this patient. A comprehensive ED assessment and evaluation of the patient, analysis of test results and completion of the medical decision making process will be conducted by additional ED providers. PHYSICAL EXAMINATION: GENERAL: Well-appearing, well-nourished and in no acute distress. HEAD: Atraumatic, normocephalic. EYES: Pupils equal round extraocular movements intact, conjunctiva are normal. ENT: Nares patent NECK: Normal range of motion LUNGS: No respiratory distress Musculoskeletal: Normal range of motion NEUROLOGICAL: Normal speech, normal gait. PSYCH: Normal mood, normal affect. SKIN: Foul-smelling chronic wound right foot TRAVEL OUTSIDE OF THE [place].S. IN LAST 30 DAYS: No - Related Data Allergies/Adverse Reactions: insulin regular [From Novolin 70/30] Allergy (Unknown, Verified 09/06/17 13:15) insulin isophane (NPH) [From Novolin 70/30] Allergy (Verified 09/06/17 13:15) metformin Allergy (Verified 09/06/17 13:15) Past Medical History - Past Medical History Cardiac Medical History: Reports: Hx Hypercholesterolemia, Hx Hypertension Endocrine Medical History: Reports: Hx Diabetes Mellitus Type 1, Hx Diabetes Mellitus Type 2 Renal/ Medical History: Denies: Hx Peritoneal Dialysis Psychiatric Medical History: Reports: Hx Depression Past Surgical History: Reports: Hx Abdominal Surgery - umbilical hernia repair, Hx Orthopedic Surgery - fifth right toe amputated, Other - Umbilical hernia repair, amputation right 5th digit with 5t metatarsal bone - Immunizations History of Influenza Vaccine for 03/2017 - 08/2017 Season: Refused Physical Exam - Vital signs Vitals: Temp Pulse Resp BP Pulse Ox 98.4 F 85 20 170/90 H 98 09/06/17 13:38 09/06/17 13:38 09/06/17 13:38 09/06/17 13:38 09/06/17 13:38 Course - Vital Signs Vital signs: Temp Pulse Resp BP Pulse Ox 98.4 F 85 20 170/90 H 98 09/06/17 13:38 09/06/17 13:38 09/06/17 13:38 09/06/17 13:38 09/06/17 13:38
[2017-09-06 14:22] LABS: ABSOLUTE EOSINOPHILS # (AUTO) 0.1 10^3/uL (0.0-0.6); ABSOLUTE MONOCYTES (AUTO) 0.6 10^3/uL (0.1-1.4); ABSOLUTE NEUT (AUTO) 4.9 10^3/uL (1.7-8.2); BASOPHILS % (AUTO) 0.5 % (0-2); EOSINOPHILS % (AUTO) 1.1 % (0-6); HEMATOCRIT 43.6 % (37.9-51.0); HEMOGLOBIN 14.4 g/dL (13.5-17.0); LYMPHOCYTES % (AUTO) 25.6 % (13-45); MEAN CORPUSCULAR HEMOGLOBIN 28.5 pg (27.0-33.4); MEAN CORPUSCULAR HGB CONC 32.9 g/dL (32.0-36.0); MEAN CORPUSCULAR VOLUME 86 fl (80-97); MONOCYTES % (AUTO) 8.2 % (3-13); RED BLOOD COUNT 5.05 10^6/uL (4.35-5.55); RED CELL DISTRIBUTION WIDTH 15.3 % (11.5-14.0); SEGMENTED NEUTROPHILS % (AUTO) 64.6 % (42-78); TOTAL CELLS COUNTED % (AUTO) 100 %; WHITE BLOOD COUNT 7.6 10^3/uL (4.0-10.5)
[2017-09-06 14:38] LABS: ALANINE AMINOTRANSFERASE 38 U/L (21-72); ALKALINE PHOSPHATASE 109 U/L (38-126); ANION GAP 11 (5-19); ASPARTATE AMINO TRANSFERASE 36 U/L (17-59); BILIRUBIN,DIRECT 0.3 mg/dL (0.0-0.4); BILIRUBIN,TOTAL 0.3 mg/dL (0.2-1.3); BLOOD UREA NITROGEN 25 mg/dL (7-20); C-REACTIVE PROTEIN 23.4 mg/L (<10.0); CALCIUM 9.7 mg/dL (8.4-10.2); CARBON DIOXIDE 24 mmol/L (22-30); CHLORIDE 102 mmol/L (98-107); GLUCOSE 390 mg/dL (75-110); POTASSIUM 4.7 mmol/L (3.6-5.0); SODIUM 137.2 mmol/L (137-145); TOTAL PROTEIN 7.4 g/dL (6.3-8.2)
[2017-09-06 14:44] LABS: PLATELET COUNT 239 10^3/uL (150-450)
[2017-09-06 14:59] LABS: ERYTHROCYTE SEDIMENTATION RATE 49 mm/hr (0-20)
--- NOTE | 2017-09-06 15:10 | RADIOLOGY REPORT (SQ) ---
EXAM DESCRIPTION: FOOT RIGHT COMPLETE COMPLETED DATE/TIME: 09/06/2017 2:43 pm REASON FOR STUDY: Foot wound COMPARISON: 08/08/2017, 07/10/2017 NUMBER OF VIEWS: Three views. TECHNIQUE: AP, lateral and oblique radiographic images acquired of the right foot. LIMITATIONS: None. FINDINGS: Persistent soft tissue ulcer along the lateral plantar aspect right foot at the level of t he tarsometatarsal joint. There is bulky new bone formation in the soft tissues at the 5th metatarsal amputation site, and girma osteal new bone throughout the 4th metatarsal diaphysis and base. This heterotopic ossification and periosteal new bone is more dense than on prior exams. No acute fracture. No radiopaque foreign body or soft tissue gas. Spotty arterial vascular calcification. IMPRESSION: Persistent plantar soft tissue ulcer along the lateral midfoot. Evidence of healed 4th metatarsal osteomyelitis TECHNICAL DOCUMENTATION: JOB ID: [id number] [employer]- All Rights Reserved Reading location - IP/workstation name: [email or web address]
[2017-09-06] MEDS ORDERED: NORMAL SALINE 1000 ML 1,000 ML IV ONE (17:13)
[2017-09-06] MEDS ORDERED: CLINDAMYCIN PHOSPHATE INJ 300 MG/2 ML SDV IV ONE (17:14)
[2017-09-06] MEDS ORDERED: ACETAMINOPHEN 325 MG TABLET PO ONE (18:15)
[2017-09-06] MEDS ORDERED: MORPHINE SULFATE 10 MG/ML INJ IV ONE (19:18)
--- NOTE | 2017-09-06 20:05 | ER Document Report ---
ED General - General Chief Complaint: Wound Recheck Stated Complaint: FOOT PAIN Time Seen by Provider: 09/06/17 13:43 Mode of Arrival: Ambulatory Information source: Patient, [facility] Records Notes: 57-year-old male with a history of diabetes, hypertension, osteomyelitis, medication noncompliance presents with complaint of right foot pain. Patient states pain has been ongoing since discharge from the hospital in July 2017. Patient has been in the emergency department 3 times this week. Patient reports that he is currently homeless. He denies any fever, chills, nausea, vomiting, chest pain, shortness of breath. He states he has an upcoming wound care appointment. He also states that he has been unable to take any of his prescribed medications secondary to not having the money. Patient is frustrated because the wound is not healing the way he thinks it should. He states because of his being homeless he is constantly on his feet and unable to rest the foot. He repeatedly states that he is not ready to decide about surgery. TRAVEL OUTSIDE OF THE U[place] IN LAST 30 DAYS: No - HPI Onset: Other - Chronic problem. Onset/Duration: Gradual, Worse Quality of pain: Burning, Throbbing Severity: Mild Pain Level: 1 Associated symptoms: denies: Chest pain, Fever, Nausea, Vomiting, Shortness of breath Exacerbated by: Walking Relieved by: Sitting Similar symptoms previously: Yes Recently seen / treated by doctor: Yes - Recent hospitalization - Related Data Allergies/Adverse Reactions: insulin regular [From Novolin 70/30] Allergy (Unknown, Verified 09/06/17 13:15) insulin isophane (NPH) [From Novolin 70/30] Allergy (Verified 09/06/17 13:15) metformin Allergy (Verified 09/06/17 13:15) Past Medical History - Social History Smoking Status: Current Some Day Smoker Chew tobacco use (# tins/day): No Frequency of alcohol use: None Drug Abuse: None Family History: Reviewed & Not Pertinent Patient has suicidal ideation: No Patient has homicidal ideation: No - Past Medical History Cardiac Medical History: Reports: Hx Hypercholesterolemia, Hx Hypertension Endocrine Medical History: Reports: Hx Diabetes Mellitus Type 1, Hx Diabetes Mellitus Type 2 Renal/ Medical History: Denies: Hx Peritoneal Dialysis Psychiatric Medical History: Reports: Hx Depression Past Surgical History: Reports: Hx Abdominal Surgery - umbilical hernia repair, Hx Orthopedic Surgery - fifth right toe amputated, Other - Umbilical hernia repair, amputation right 5th digit with 5t metatarsal bone Review of Systems - Review of Systems Constitutional: See HPI Skin: Other - 7 cm wound on the lateral aspect of the right foot. Physical Exam - Vital signs Vitals: Temp Pulse Resp BP Pulse Ox 98.4 F 85 20 170/90 H 98 09/06/17 13:38 09/06/17 13:38 09/06/17 13:38 09/06/17 13:38 09/06/17 13:38 Interpretation: Normal, Hypertensive. No: Tachycardic, Hypoxic, Febrile - General General appearance: Appears well, Alert In distress: None - HEENT Head: Normocephalic, Atraumatic Eyes: Normal Extraocular movements intact: Yes Pupils: PERRL - Respiratory Respiratory status: No respiratory distress Chest status: Nontender Breath sounds: Normal Chest palpation: Normal - Cardiovascular Rhythm: Regular Heart sounds: Normal auscultation Murmur: No Pulses: Normal: Radial, Dorsalis pedis Normal capillary refill: Yes - Extremities General upper extremity: Normal inspection, Nontender, Normal color, Normal ROM , Normal temperature General lower extremity: Normal inspection, Nontender, Normal color, Normal ROM , Normal temperature, Normal weight bearing. No: Jeanette's sign Foot: Other - Right foot shows a right fifth toe amputation as well as a 7 cm open wound on the lateral aspect of his fifth metatarsal. No active drainage. There is foul odor. - Neurological Neuro grossly intact: Yes Cognition: Normal Orientation: AAOx4 [place] Coma Scale Eye Opening: Spontaneous [place] Coma Scale Verbal: Oriented [place] Coma Scale Motor: Obeys Commands [place] Coma Scale Total: 15 Speech: Normal Motor strength normal: LUE, RUE, LLE, RLE Sensory: Normal Course - Re-evaluation Re-evalutation: 09/06/17 20:[address] Fulton regarding admission for IV antibiotics. He requested a surgical consult. Spoke to Dr. Hollis who is familiar with the patient. He is willing to admit the patient if patient is ready for further amputation of the foot and possible lower extremity. He does not believe admission for IV antibiotics are home- going antibiotics would be helpful in this chronic infection. Patient at this time is not willing to undergo surgery. He does have wound care follow-up. 09/06/17 20:54 57-year-old male with history of poorly controlled diabetes, previous right fifth toe amputation, chronic osteomyelitis presents with complaint of right foot pain and right foot wound. Upon arrival vitals were reviewed. Patient is hypertensive, afebrile and not hypoxic. He does not appear toxic he does appear mildly dehydrated. He is in no acute distress. Previous medical records were reviewed including surgical, radiology and admission records. Wound culture obtained. Patient was administered IV clindamycin, IV fluids, morphine and Zofran for pain. CBC shows no leukocytosis or anemia. BMP was significant for hyperglycemia without evidence of DKA. Patient does have a mild ZANE and did receive IV fluids for this. I did speak to the hospitalist who recommended surgical consult. Surgery consult was obtained. Dr. Hollis who is familiar with the patient is agreeable to admission if patient is willing to undergo BKA. He does not feel that inpatient IV antibiotics or outpatient antibiotics would be beneficial at this time. Social work consult was placed to try to assist the patient and follow-up care and acquisition of his medications. I Did explain this to the patient who is very frustrated but not ready to decide about surgery. Microbiology 09/06/17 15:49 Wound Culture - Preliminary Foot - Diabetic Ulcer Laboratory 09/06/17 09/06/17 14:00 14:00 WBC 7.6 RBC 5.05 Hgb 14.4 Hct 43.6 MCV 86 MCH 28.5 MCHC 32.9 RDW 15.3 H Plt Count 239 Seg Neutrophils % 64.6 Lymphocytes % 25.6 Monocytes % 8.2 Eosinophils % 1.1 Basophils % 0.5 Absolute Neutrophils 4.9 Absolute Lymphocytes 2.0 Absolute Monocytes 0.6 Absolute Eosinophils 0.1 Absolute Basophils 0.0 ESR 49 H Sodium 137.2 Potassium 4.7 Chloride 102 Carbon Dioxide 24 Anion Gap 11 BUN 25 H Creatinine 1.39 H Est GFR ( Amer) > 60 Est GFR (Non-Af Amer) 52 L Glucose 390 H Calcium 9.7 Total Bilirubin 0.3 Direct Bilirubin 0.3 Neonat Total Bilirubin Not Reportable Neonat Direct Bilirubin Not Reportable Neonat Indirect Bili Not Reportable AST 36 ALT 38 Alkaline Phosphatase 109 C-Reactive Protein 23.4 H Total Protein 7.4 Albumin 4.0 Foot X-Ray 09/06/17 13:51 IMPRESSION: Persistent plantar soft tissue ulcer along the lateral midfoot. Evidence of healed 4th metatarsal osteomyelitis Did explain to the patient that the only reason for hospital admission would be surgery and he is not agreeable at this time. This is the patient's third emergency department visit. Previous visits this week show that the patient was persistently asking for opiate medication refills. She was discharged home in stable condition with recommendation to keep his upcoming wound care appointment. - Vital Signs Vital signs: Temp Pulse Resp BP Pulse Ox 97.4 F 82 18 181/105 H 98 09/06/17 20:04 09/06/17 20:04 09/06/17 20:04 09/06/17 20:04 09/06/17 20:04 - Laboratory Result Diagrams: 09/06/17 14:00 09/06/17 14:00 Laboratory results interpreted by me: 09/06/17 09/06/17 14:00 14:00 RDW 15.3 H ESR 49 H BUN 25 H Creatinine 1.39 H Est GFR (Non-Af Amer) 52 L Glucose 390 H C-Reactive Protein 23.4 H - Diagnostic Test Radiology reviewed: Image reviewed, Reports reviewed Discharge - Discharge Clinical Impression: Hyperglycemia, medication no, Non compliance w medication regimen Osteomyelitis Qualifiers: Osteomyelitis type: other chronic Osteomyelitis location: foot Laterality: right Qualified Code(s): M86.671 - Other chronic osteomyelitis, right ankle and foot Hypertension Qualifiers: Hypertension type: unspecified Qualified Code(s): I10 - Essential (primary) hypertension Condition: Good Disposition: HOME, SELF-CARE Instructions: High Blood Pressure ([facility]), Hyperglycemia ([facility]), Osteomyelitis ( [facility]) Additional Instructions: Please keep your wound care appointment as already scheduled. Social work consult has been placed for you. Patient was seen in the emergency department 3 times this week. Forms: Return to Work
[2017-09-06 20:17] VITALS: BP 181/105
== END 2017-09-06 20:35 | disposition home or self-care (01) ==
LOC: ER 13:14
DX: E11.69 Type 2 diabetes mellitus with other specified complication (principal); M86.671 Other chronic osteomyelitis, right ankle and foot; E11.65 Type 2 diabetes mellitus with hyperglycemia; E11.621 Type 2 diabetes mellitus with foot ulcer; L97.419 Non-pressure chronic ulcer of right heel and midfoot with unspecified severity; Z91.14 Patient's other noncompliance with medication regimen; N17.9 Acute kidney failure, unspecified; F17.200 Nicotine dependence, unspecified, uncomplicated; Z59.0 Homelessness; Z88.8 Allergy status to other drugs, medicaments and biological substances; Z89.431 Acquired absence of right foot
CPT/HCPCS: 99283; 96361; 96375; 96365; 36415; 87040; 87070; 87205; 85025; 85652; 86140; 87077; 80053; 73630; J3490; J2270; J7030

== ENCOUNTER 2017-09-14 08:12 | Emergency (ER) | payer SELFPAY ==
[2017-09-14 08:20] VITALS: BP 145/84
--- NOTE | 2017-09-14 08:43 | ER Document Report ---
HPI - HPI Patient complains to provider of: Pain Level: 5 Context: 57 [facility] because he wants his pain medication refilled oxy IR 10mg, also has a bad cough, and wants dressing change to his lateral right foot, post ulcer amputation. Associated Symptoms: None Exacerbated by: Denies Relieved by: Denies Similar symptoms previously: Yes Recently seen / treated by doctor: No - ROS ROS below otherwise negative: Yes Systems Reviewed and Negative: Yes All other systems reviewed and negative Past Medical History - General Information source: Patient - Social History Smoking Status: Current Every Day Smoker Frequency of alcohol use: None Drug Abuse: None Occupation: homeless. [facility] Lives with: Homeless Family History: Reviewed & Not Pertinent - Past Medical History Cardiac Medical History: Reports: Hx Hypercholesterolemia, Hx Hypertension Endocrine Medical History: Reports: Hx Diabetes Mellitus Type 1, Hx Diabetes Mellitus Type 2 Renal/ Medical History: Denies: Hx Peritoneal Dialysis Psychiatric Medical History: Reports: Hx Depression Past Surgical History: Reports: Hx Abdominal Surgery - umbilical hernia repair, Hx Orthopedic Surgery - fifth right toe amputated, Other - Umbilical hernia repair, amputation right 5th digit with 5t metatarsal bone Vertical Provider Document - CONSTITUTIONAL Agree With Documented VS: Yes Exam Limitations: No Limitations General Appearance: No Apparent Distress - INFECTION CONTROL TRAVEL OUTSIDE OF THE [place] IN LAST 30 DAYS: No - HEENT HEENT: Normal ENT Exam - NECK Neck: Supple. negative: Lymphadenopathy-Left, Lymphadenopathy-Right - RESPIRATORY Respiratory: No Respiratory Distress, Rhonchi - course, change with cough - CARDIOVASCULAR Cardiovascular: Regular Rate, Regular Rhythm - MUSCULOSKELETAL/EXTREMETIES Musculoskeletal/Extremeties: MAEW, Non-Tender - lateral distal right foot wound with granulation tissue and some exudate. n/v intact - NEURO Level of Consciousness: Awake, Alert Motor/Sensory: No Motor Deficit, No Sensory Deficit - DERM Integumentary: Warm, Dry Course - Re-evaluation Re-evalutation: 09/14/17 11:28 Lungs are clear after the treatments, chest x-ray is negative, patient asking for his pain pill prescription of Percocet and I signed the [facility] activity card use a bus ticket verification form for him. He knows he has to go to the wound care clinic on Thursday to see Dr. Smith. 09/14/17 11:52 Patient unhappy with the 5 mg Percocet which I originally did not even want to prescribe. He came over to pod 5 where I was seeing anither patient and told the nurse that unless he gets a 10 mg he wanted to see another provider and that we could just throw "that shit away". On his discharge him the hospitalist on August 22 they put opiate dependence as a diagnosis which I did not want to facilitate. No evidence of withdrawal while in the ER. 09/14/17 12:00 a PCT came from [facility] with the prescription he is asking for 10mg percocet. I offered to change the prescription to #5 10mg, or he can keep the #10 5mg. 09/14/17 12:16 He wants OXY not percocet, he told [facility] PCT that "he didn't care about [employer] or [employer], he would make a scene until he got what he wanted". - Vital Signs Vital signs: Temp Pulse Resp BP Pulse Ox 98.2 F 75 18 145/84 H 97 09/14/17 08:19 09/14/17 08:19 09/14/17 08:19 09/14/17 08:19 09/14/17 08:19 Discharge - Discharge Clinical Impression: Right foot dressing change, Upper respiratory infection, Chronic wound right foot Condition: Good Disposition: HOME, SELF-CARE Instructions: Foot or Leg Ulcer ([facility]), Inhaled Bronchodilators ([facility]), Upper Respiratory Illness ([facility]) Additional Instructions: See Dr. Smith at the [facility] on Thursday as you are scheduled Return to the emergency room for any fever, worsening symptoms Use the albuterol metered-dose inhaler 2 puffs every 3 hours for the cough The emergency department will not prescribe for your chronic oxycodone prescription I did give you 10 today, pending prescription from the wound care clinic wound culture is pending Wash her wound with soap and water and packed with gauze daily Prescriptions: Oxycodone HCl/Acetaminophen [Percocet 5-325 mg Tablet] 1 tab PO ASDIR PRN #10 tablet PRN Reason:
[2017-09-14] MEDS ORDERED: IPRATROPIUM/ALBUTEROL 0.5-2.5 MG/3 ML AMPUL NEB ONE (08:53)
[2017-09-14] MEDS ORDERED: ALBUTEROL SULFATE 0.083% NEB 2.5 MG/3 ML AMPUL NEB ONE (09:36)
[2017-09-14] MEDS ORDERED: PREDNISONE 20 MG TABLET PO ONE (09:36)
--- NOTE | 2017-09-14 11:02 | RADIOLOGY REPORT (SQ) ---
EXAM DESCRIPTION: CHEST PA/LAT COMPLETED DATE/TIME: 09/14/2017 10:51 am REASON FOR STUDY: [facility] COMPARISON: 08/08/2017 EXAM PARAMETERS: NUMBER OF VIEWS: two views TECHNIQUE: Digital Frontal and Lateral radiographic views of the chest acquired. RADIATION DOSE: NA LIMITATIONS: none FINDINGS: LUNGS AND PLEURA: No opacities, masses or pneumothorax. No pleural effusion. MEDIASTINUM AND HILAR STRUCTURES: No masses or contour abnormalities. HEART AND VASCULAR STRUCTURES: Heart normal size. No evidence for failure. BONES: No acute findings. HARDWARE: None in the chest. OTHER: No other significant finding. IMPRESSION: NO SIGNIFICANT RADIOGRAPHIC FINDING IN THE CHEST. TECHNICAL DOCUMENTATION: JOB ID: [id number] [employer]- All Rights Reserved Reading location - IP/workstation name: [email or web address]
[2017-09-14] MEDS ORDERED: ALBUTEROL SULFATE HFA (90 MCG/PUFF) 8 GM MDI (1 MDI/ER DISP) IH PRN (11:29)
== END 2017-09-14 11:46 | disposition home or self-care (01) ==
LOC: ER 08:12
DX: Z48.01 Encounter for change or removal of surgical wound dressing (principal); T81.89XA Other complications of procedures, not elsewhere classified, initial encounter; J06.9 Acute upper respiratory infection, unspecified; R05 Cough; Z59.0 Homelessness; Z89.431 Acquired absence of right foot; F17.200 Nicotine dependence, unspecified, uncomplicated; I10 Essential (primary) hypertension; E11.9 Type 2 diabetes mellitus without complications
CPT/HCPCS: 94640 ×2; 99282; 87070; 87205; 87077; 87186; 71046; J7512; J7620

== ENCOUNTER 2017-09-14 12:01 | Emergency (ER) | payer SELFPAY ==
[2017-09-14 12:25] VITALS: BP 162/72
--- NOTE | 2017-09-14 13:12 | ER Document Report ---
ED General - General Chief Complaint: Medication Refill Stated Complaint: MEDICATION CHANGE Time Seen by Provider: 09/14/17 12:49 Mode of Arrival: Ambulatory Information source: Patient TRAVEL OUTSIDE OF THE [place] IN LAST 30 DAYS: No - HPI Patient complains to provider of: i need different pain meds Notes: Patient is here with complaints of needing his prescription change for his pain medication. Patient is a noncompliant diabetic with a history of opiate dependency has had prior amputation of his right toes. The patient has been seen in the emergency department multiple times requesting pain medications. His last visit to the ER he was offered an admission to the hospital to have further amputation of his foot which would actually take care of the problem that he is having, but he did not want to be admitted to the hospital and just wanted a prescription for pain medication. The patient was seen in the emergency department earlier today requesting a prescription for pain medication. He was given a prescription for #10 5 mg Percocets. He states that he does not want these and that he wants 10 mg oxycodone. He denies any recent fevers. He has no other complaints for me other than wanting his prescription changed. - Related Data Allergies/Adverse Reactions: insulin regular [From Novolin 70/30] Allergy (Unknown, Verified 09/14/17 12:02) insulin isophane (NPH) [From Novolin 70/30] Allergy (Verified 09/14/17 12:02) metformin Allergy (Verified 09/14/17 12:02) Past Medical History - Social History Smoking Status: Unknown if Ever Smoked Family History: Reviewed & Not Pertinent - Past Medical History Cardiac Medical History: Reports: Hx Hypercholesterolemia, Hx Hypertension Endocrine Medical History: Reports: Hx Diabetes Mellitus Type 1, Hx Diabetes Mellitus Type 2 Renal/ Medical History: Denies: Hx Peritoneal Dialysis Psychiatric Medical History: Reports: Hx Depression Past Surgical History: Reports: Hx Abdominal Surgery - umbilical hernia repair, Hx Orthopedic Surgery - fifth right toe amputated, Other - Umbilical hernia repair, amputation right 5th digit with 5t metatarsal bone Review of Systems - Review of Systems -: Yes All other systems reviewed and negative Physical Exam - Vital signs Vitals: Temp Pulse Resp BP Pulse Ox 97.9 F 85 16 162/72 H 97 09/14/17 12:23 09/14/17 12:23 09/14/17 12:23 09/14/17 12:23 09/14/17 12:23 - Notes Notes: GENERAL: alert, cooperative, nontoxic, no distress. HEAD: normocephalic, atraumatic EYES: conjunctiva pink without discharge, no external redness or swelling. EARS: no external swelling, no external redness NOSE: atraumatic, no external swelling MOUTH/THROAT: mucous membranes moist and pink NECK: soft, supple, full range of motion, no meningismus. CHEST: no distress, lungs clear and equal throughout. No wheezing, rales, rhonchi. CARDIAC: regular rate and rhythm, no murmur, normal capillary refill, normal pulses. BACK: full range of motion, no CVA tenderness. EXTREMITIES: Patient will not allow exam of the foot, he states that it was just seen earlier today. NEURO: alert and oriented 3, no focal deficits, full range of motion of all extremities. PYSCH: appropriate mood, affect. Patient is cooperative. SKIN: pink, warm, dry, no rash. Course - Re-evaluation Re-evalutation: 09/14/17 13:09 Patient is nontoxic appearing with stable vitals. Patient is a noncompliant diabetic with a history of opiate dependency who had amputation several months ago. He is here requesting a change in his pain prescription. Been seen in the emergency department multiple times requesting pain prescriptions. His last visit to the ER a few weeks ago he was offered an admission to the hospital but declined. He was seen here earlier today was given a prescription for #10 5 mg Percocets. Tells me that he needs to switch to plain oxycodone. I explained that I am not going to switch his prescription, that he was given a prescription for narcotic medications already today and he can fill that prescription if he would like. I explained that the emergency department is not the place to obtain narcotic medications for chronic painful conditions that he needs to follow-up with his primary care doctor or the wound clinic or his surgeon if he feels that he needs chronic pain medication. Patient was not happy with this. Patient did up leaving the emergency department without any of his paperwork or signing discharge papers. - Vital Signs Vital signs: Temp Pulse Resp BP Pulse Ox 97.9 F 85 16 162/72 H 97 09/14/17 12:23 09/14/17 12:23 09/14/17 12:23 09/14/17 12:23 09/14/17 12:23 Discharge - Discharge Clinical Impression: Chronic pain Qualifiers: Chronic pain type: other chronic pain Qualified Code(s): G89.29 - Other chronic pain Condition: Stable Disposition: HOME, SELF-CARE Instructions: Chronic Pain Control ([facility]) Additional Instructions: Take prescriptions were given earlier today as directed. Follow-up with your primary care doctor, the wound center, or your surgeon if you feel that you need chronic pain medications for your foot. Emergency department is not the place to refill your narcotic medications. Your blood pressure was elevated during today's visit. Have this rechecked with your doctor. Forms: Elevated Blood Pressure, Smoking Cessation Education Referrals: [facility] [Provider Group] - Follow up as needed
== END 2017-09-14 13:06 | disposition home or self-care (01) ==
LOC: ER 12:01
DX: G89.29 Other chronic pain (principal); E11.69 Type 2 diabetes mellitus with other specified complication; I10 Essential (primary) hypertension; Z89.421 Acquired absence of other right toe(s); Z79.899 Other long term (current) drug therapy; Z86.59 Personal history of other mental and behavioral disorders
CPT/HCPCS: 99281

== ENCOUNTER 2017-09-24 11:17 | Emergency (ER) | payer SELFPAY ==
[2017-09-24 11:25] VITALS: BP 177/73
[2017-09-24] MEDS ORDERED: TRAMADOL HCL 50 MG TABLET PO ONE (11:31)
--- NOTE | 2017-09-24 11:36 | ER Document Report ---
ED General - General Chief Complaint: Foot Pain Stated Complaint: FOOT PAIN Time Seen by Provider: 09/24/17 11:25 Notes: 57-year-old male PMH chronic right foot wound here today with complaints of continued right foot pain ongoing for the past 5-6 months. He states that he was just at the [facility] prior to arrival where they evaluated his foot wound and wrapped it with clean dressing. He has not been taking anything for the pain. He is here because he wants the pain to go away because he is tired of it. He states that they told him antibiotics would not help since it is not infected. TRAVEL OUTSIDE OF THE [place] IN LAST 30 DAYS: No - Related Data Allergies/Adverse Reactions: insulin regular [From Novolin 70/30] Allergy (Unknown, Verified 09/24/17 11:22) insulin isophane (NPH) [From Novolin 70/30] Allergy (Verified 09/24/17 11:22) metformin Allergy (Verified 09/24/17 11:22) Past Medical History - Social History Smoking Status: Current Every Day Smoker Frequency of alcohol use: None Drug Abuse: None Family History: Reviewed & Not Pertinent Patient has suicidal ideation: No Patient has homicidal ideation: No - Past Medical History Cardiac Medical History: Reports: Hx Hypercholesterolemia, Hx Hypertension Endocrine Medical History: Reports: Hx Diabetes Mellitus Type 1, Hx Diabetes Mellitus Type 2 Renal/ Medical History: Denies: Hx Peritoneal Dialysis Psychiatric Medical History: Reports: Hx Depression Past Surgical History: Reports: Hx Abdominal Surgery - umbilical hernia repair, Hx Orthopedic Surgery - fifth right toe amputated, Other - Umbilical hernia repair, amputation right 5th digit with 5t metatarsal bone Review of Systems - Review of Systems Notes: See history of present illness for pertinent positive review of systems; otherwise all review of systems have been reviewed and are negative Physical Exam - Vital signs Vitals: Temp Pulse Resp BP Pulse Ox 98.7 F 88 16 177/73 H 99 09/24/17 11:20 09/24/17 11:20 09/24/17 11:20 09/24/17 11:20 09/24/17 11:20 - Notes Notes: PHYSICAL EXAMINATION: GENERAL: Well-appearing and in no acute distress. HEAD: Atraumatic, normocephalic. EYES: Pupils equal round and reactive to light, extraocular movements intact, sclera anicteric, conjunctiva are normal. ENT: nares patent, oropharynx clear without exudates. Moist mucous membranes. NECK: Normal range of motion, supple without lymphadenopathy LUNGS: CTAB and equal. No wheezes rales or rhonchi. HEART: Regular rate and rhythm without murmurs ABDOMEN: Soft, no tenderness. No guarding, no rebound EXTREMITIES: Normal range of motion, no pitting edema. No cyanosis. Right foot wound wrapped however patient will not allow me to unwrap it to examine the wound stating "they just wrapped it at the clinic" NEUROLOGICAL: Cranial nerves grossly intact. Normal sensory/motor exams. PSYCH: Normal mood, normal affect. SKIN: Warm, Dry, normal turgor, no rashes or lesions noted Course - Re-evaluation Re-evalutation: 09/24/17 11:35 MEDICAL DECISION MAKING: Concern for continued chronic right foot wound pain Patient will not allow for examination since it was just wrapped Though from his history I do not suspect infection Nevertheless, he is obtaining outpatient follow-up care for this wound Will give dose of pain medication here and prescription for same Instructed follow-up PCP and/or wound physician next day or few Patient understands and agrees to the plan of care - Vital Signs Vital signs: Temp Pulse Resp BP Pulse Ox 98.7 F 88 16 177/73 H 99 09/24/17 11:20 09/24/17 11:20 09/24/17 11:20 09/24/17 11:20 09/24/17 11:20 Discharge - Discharge Clinical Impression: Chronic pain in right foot Condition: Good Disposition: HOME, SELF-CARE Additional Instructions: Use the prescribed medication as needed for pain. You were seen in the emergency department at [facility]. If you were given any sedating medications, be sure not to operate heavy machinery (example - driving ) and be sure you are not too sedated to walk appropriately. Please followup with your primary physician in the next few days for further management/ evaluation. Please return to the emergency department for worsening of symptoms or any symptom that you deem to be concerning or life-threatening. Thank you for allowing us to be part of your care. Prescriptions: Tramadol HCl 50 mg PO BIDP PRN #7 tablet PRN Reason: Pain Scale Of 4
== END 2017-09-24 11:48 | disposition home or self-care (01) ==
LOC: ER 11:17
DX: G89.29 Other chronic pain (principal); M79.671 Pain in right foot; E11.9 Type 2 diabetes mellitus without complications; I10 Essential (primary) hypertension; F17.200 Nicotine dependence, unspecified, uncomplicated; Z88.8 Allergy status to other drugs, medicaments and biological substances
CPT/HCPCS: 99283

== ENCOUNTER 2017-09-28 08:10 | Inpatient (IN) | payer SELFPAY ==
[2017-09-28] MEDS ORDERED: ONDANSETRON 4 MG TAB.RAPDIS PO ONE (09:00)
[2017-09-28] MEDS ORDERED: TRAMADOL HCL 50 MG TABLET PO ONE (09:00)
--- NOTE | 2017-09-28 09:03 | ER Document Report ---
ED General - General Chief Complaint: General Weakness Stated Complaint: WEAKNESS Time Seen by Provider: 09/28/17 08:30 Mode of Arrival: Ambulatory Information source: Patient Notes: Patient presents with a one-week history of decreased energy, decreased appetite and cough. Patient states that he has a chronic foot wound to his right foot he has been treating for the past 6 months and sees the wound clinic for this issue. Patient reports nausea and vomiting yesterday without any emesis today. Patient denies any diarrhea or abdominal pain. Patient does complain of generalized body aches. Patient is requesting admission TRAVEL OUTSIDE OF THE [place] IN LAST 30 DAYS: No - HPI Onset: Last week Onset/Duration: Persistent Quality of pain: Achy Pain Level: 2 Associated symptoms: Body/muscle aches, Nonproductive cough, Vomiting - yesterday. denies: Chest pain, Diarrhea, Fever, Shortness of breath Exacerbated by: Denies Relieved by: Denies Similar symptoms previously: No Recently seen / treated by doctor: Yes - [facility] 5 days ago - Related Data Allergies/Adverse Reactions: insulin regular [From Novolin 70/30] Allergy (Unknown, Verified 09/28/17 13:17) insulin isophane (NPH) [From Novolin 70/30] Allergy (Verified 09/28/17 13:17) metformin Allergy (Verified 09/28/17 13:17) Past Medical History - General Information source: Patient - Social History Smoking Status: Current Some Day Smoker Frequency of alcohol use: None Drug Abuse: None Occupation: none Lives with: Homeless - at [facility] Family History: Reviewed & Not Pertinent - Past Medical History Cardiac Medical History: Reports: Hx Hypercholesterolemia, Hx Hypertension Endocrine Medical History: Reports: Hx Diabetes Mellitus Type 1, Hx Diabetes Mellitus Type 2 Renal/ Medical History: Reports: Hx Renal Insufficiency. 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 bone Review of Systems - Review of Systems Constitutional: Malaise. denies: Fever, Recent illness EENT: No symptoms reported Cardiovascular: No symptoms reported. denies: Chest pain Respiratory: Cough. denies: Short of breath Gastrointestinal: Nausea, Vomiting - yesterday, Poor appetite. denies: Abdominal pain, Diarrhea Genitourinary: No symptoms reported. denies: Dysuria, Flank pain Male Genitourinary: No symptoms reported Musculoskeletal: Joint pain - r foot pain, Other - generalized bodyaches Skin: Other - chronic foot wound r foot Hematologic/Lymphatic: No symptoms reported Neurological/Psychological: Other - diabetic neuropathy Physical Exam - Vital signs Vitals: Temp Pulse Resp BP Pulse Ox 98.2 F 83 20 132/69 H 97 09/28/17 08:15 09/28/17 08:15 09/28/17 08:15 09/28/17 08:15 09/28/17 08:15 - General General appearance: Appears well, Alert In distress: None - HEENT Head: Normocephalic, Atraumatic Eyes: Normal Conjunctiva: Normal Nasal: Normal Mouth/Lips: Normal Mucous membranes: Normal Neck: Normal, Supple. No: Lymphadenopathy, Meningismus - Respiratory Respiratory status: No respiratory distress Chest status: Nontender Breath sounds: Nonproductive cough. No: Rales, Rhonchi, Stridor Chest palpation: Normal - Cardiovascular Rhythm: Regular Heart sounds: S1 appreciated, S2 appreciated Murmur: No - Abdominal Inspection: Normal Distension: No distension Bowel sounds: Normal Tenderness: Nontender Organomegaly: No organomegaly - Back Back: Normal, Nontender - Extremities General upper extremity: Normal inspection, Normal strength General lower extremity: Tender - right foot Foot: Tender, Other - chronic foot wound over lateral aspect of r foot - Neurological Neuro grossly intact: Yes Cognition: Normal [place] Coma Scale Eye Opening: Spontaneous [place] Coma Scale Verbal: Oriented [place] Coma Scale Motor: Obeys Commands [place] Coma Scale Total: 15 - Psychological Associated symptoms: Normal affect, Normal mood - Skin Skin Temperature: Warm Skin Moisture: Dry Skin irregularity: other - chronic foot wound to right foot over lateral aspect of midfoot area Irregularity with: Tenderness, Other - malodorous Course - Re-evaluation Re-evalutation: 09/28/17 11:[address] Puri regarding pt xray as well as presentation, advises adding vancomycin and consulting with hospitalist for admission. At this time labs are still pending. 09/28/17 12:16 Patient with x-ray findings concerning for worsening infection, patient with leukocytosis and elevated blood sugar. Patient states that he has not taken his insulin as he has not been eating due to his not feeling well. Awaiting results of patient's chemistry panel before giving insulin at this time. Patient's vital signs stable, no concern for sepsis at this time. Consulted with dr Feldman who agrees to accept pt as admission to medical floor. - Vital Signs Vital signs: Temp Pulse Resp BP Pulse Ox 98.2 F 74 15 138/74 H 98 09/28/17 08:15 09/28/17 14:26 09/28/17 15:12 09/28/17 15:12 09/28/17 15:12 - Laboratory Result Diagrams: 09/28/17 09:45 09/28/17 12:38 Laboratory results interpreted by me: 09/28/17 09/28/17 09/28/17 09:45 10:30 10:39 WBC 23.6 H RDW 15.1 H Seg Neuts % (Manual) 79 H Lymphocytes % (Manual) 11 L Abs Neuts (Manual) 19.6 H POC Glucose 373 H Urine Protein 100 H Urine Glucose (UA) >=500 H Urine Ketones TRACE H Urine Blood MODERATE H Ur Leukocyte Esterase MODERATE H 09/28/17 11:57 WBC RDW Seg Neuts % (Manual) Lymphocytes % (Manual) Abs Neuts (Manual) POC Glucose 425 H* Urine Protein Urine Glucose (UA) Urine Ketones Urine Blood Ur Leukocyte Esterase - Diagnostic Test Radiology reviewed: Image reviewed, Reports reviewed Discharge - Discharge Clinical Impression: Diabetic foot infection, Chronic pain in right foot Uncontrolled type 2 diabetes mellitus Qualifiers: Diabetes mellitus intermediate accountant insulin use: with intermediate accountant use Diabetes mellitus complication status: with skin complications UTI (urinary tract infection) Qualifiers: Urinary tract infection type: acute cystitis Hematuria presence: with hematuria Qualified Code(s): N30.01 - Acute cystitis with hematuria Condition: Fair Disposition: ADMITTED INPATIENT Admitting Provider: Hospitalist Unit Admitted: Medical Floor
--- NOTE | 2017-09-28 09:52 | RADIOLOGY REPORT (SQ) ---
EXAM DESCRIPTION: CHEST 2 VIEWS COMPLETED DATE/TIME: 09/28/2017 9:25 am REASON FOR STUDY: cough COMPARISON: Two-view chest 09/14/2017, AP chest 08/08/2017 EXAM PARAMETERS: NUMBER OF VIEWS: two views TECHNIQUE: Digital Frontal and Lateral radiographic views of the chest acquired. RADIATION DOSE: NA LIMITATIONS: none FINDINGS: LUNGS AND PLEURA: No opacities, masses or pneumothorax. No pleural effusion. MEDIASTINUM AND HILAR STRUCTURES: No masses or contour abnormalities. HEART AND VASCULAR STRUCTURES: Heart normal size. No evidence for failure. BONES: No acute findings. HARDWARE: None in the chest. OTHER: No other significant finding. IMPRESSION: NO ACUTE RADIOGRAPHIC FINDING IN THE CHEST. TECHNICAL DOCUMENTATION: JOB ID: [id number] [employer]- All Rights Reserved Reading location - IP/workstation name: [email or web address]
--- NOTE | 2017-09-28 09:55 | RADIOLOGY REPORT (SQ) ---
EXAM DESCRIPTION: FOOT RIGHT COMPLETE COMPLETED DATE/TIME: 09/28/2017 9:25 am REASON FOR STUDY: chronic foot wound COMPARISON: 09/06/2017, 08/08/2017, 07/10/2017, 07/01/2016 NUMBER OF VIEWS: Three views. TECHNIQUE: AP, lateral and oblique radiographic images acquired of the right foot. LIMITATIONS: None. FINDINGS: 5 to 6 cm wound along the plantar and lateral aspect right midfoot. Patient is post 5th metatarsal and toe amputation. Along the lateral aspect of the cuboid bone, and base of the 4th metatarsal there is heterotopic ossi fication which has become demineralized since 09/06/2017, worrisome for ongoing osteomyelitis. There is bulky periosteal new bone along the 4th metatarsal midshaft which is similar compared to 06/22, likely indicating 4th metatarsal osteomyelitis. No acute fracture. No malalignment at the midfoot. IMPRESSION: Persistent plantar ulcer over the right mid foot at the level of the old 5th metatarsal osteotomy. Heterotopic ossification deep to the ulcer has demineralized since 09/06/2017 plain films worrisome for ongoing infection. TECHNICAL DOCUMENTATION: JOB ID: [id number] [employer]- All Rights Reserved Reading location - IP/workstation name: [email or web address]
[2017-09-28 10:27] LABS: HEMATOCRIT 41.3 % (37.9-51.0); HEMOGLOBIN 13.5 g/dL (13.5-17.0); MEAN CORPUSCULAR HGB CONC 32.7 g/dL (32.0-36.0); MEAN CORPUSCULAR VOLUME 86 fl (80-97); PLATELET COUNT 243 10^3/uL (150-450); RED BLOOD COUNT 4.82 10^6/uL (4.35-5.55); RED CELL DISTRIBUTION WIDTH 15.1 % (11.5-14.0); WHITE BLOOD COUNT 23.6 10^3/uL (4.0-10.5)
[2017-09-28] MEDS ORDERED: NORMAL SALINE 1000 ML 1,000 ML IV ONE (10:41)
[2017-09-28 10:52] LABS: ABSOLUTE LYMPHOCYTES# (MANUAL) 2.6 10^3/uL (0.5-4.7); ABSOLUTE MONOCYTES # (MANUAL) 1.4 10^3/uL (0.1-1.4); ABSOLUTE NEUTROPHILS# (MANUAL) 19.6 10^3/uL (1.7-8.2); BAND NEUTROPHILS % (MANUAL) 4 % (3-5); BASOPHILS % (MANUAL) 0 % (0-2); EOSINOPHILS % (MANUAL) 0 % (0-6); LYMPHOCYTES % (MANUAL) 11 % (13-45); MONOCYTES % (MANUAL) 6 % (3-13); SEGMENTED NEUTROPHILS % (MAN) 79 % (42-78); TOTAL CELLS COUNTED 100
[2017-09-28 10:53] LABS: RBC MORPHOLOGY COMMENT NORMO-CYTIC/CHROMIC
[2017-09-28 10:54] LABS: PLATELET COMMENT ADEQUATE; TOXIC GRANULATION 1+; TOXIC VACUOLATION PRESENT
[2017-09-28 11:07] LABS: APPEARANCE,URINE SLIGHTLY-CLOUDY; BILIRUBIN,URINE NEGATIVE (NEGATIVE); COLOR,URINE YELLOW; GLUCOSE, URINE >=500 mg/dL (NEGATIVE); KETONES,URINE TRACE mg/dL (NEGATIVE); LEUKOCYTE ESTERASE,URINE MODERATE (NEGATIVE); NITRITE,URINE NEGATIVE (NEGATIVE); PROTEIN,URINE 100 mg/dL (NEGATIVE); UROBILINOGEN,URINE NEGATIVE mg/dL (<2.0)
[2017-09-28] MEDS ORDERED: OXYCODONE-ACETAMINOPHEN 5-325 MG TABLET PO ONE (11:26)
[2017-09-28] MEDS ORDERED: VANCOMYCIN HCL INJ 1000 MG VIAL IV ONE (11:27)
[2017-09-28 11:37] LABS: VENOUS BLOOD BASE EXCESS 1.1 mmol/L; VENOUS BLOOD HCO3 26.5 mmol/L (20-32); VENOUS BLOOD PH 7.39 (7.30-7.42)
[2017-09-28] MEDS ORDERED: ALBUTEROL SULFATE 0.083% NEB 2.5 MG/3 ML AMPUL NEB PRN (13:08)
[2017-09-28] MEDS ORDERED: ZOLPIDEM TARTRATE 5 MG TABLET PO PRN (13:08)
[2017-09-28] MEDS ORDERED: ACETAMINOPHEN 325 MG TABLET PO PRN (13:08)
[2017-09-28] MEDS ORDERED: ONDANSETRON HCL INJ/PF 4 MG/2 ML SDV IV PRN (13:08)
[2017-09-28] MEDS ORDERED: NORMAL SALINE 1000 ML 1,000 ML IV PRN (13:13)
[2017-09-28] MEDS ORDERED: VANCOMYCIN HCL 0 MG in DEXTROSE 5%-WATER 250 ML IV NR (13:15)
[2017-09-28] MEDS ORDERED: DEXTROSE 50%-WATER 25 GM/50 ML DISP.SYRIN IV PRN ×2 (13:17)
[2017-09-28] MEDS ORDERED: GLUCAGON,HUMAN RECOMB 1 MG INJ IM PRN (13:17)
[2017-09-28] MEDS ORDERED: DEXTROSE 40% GEL 15 GM TUBE PO PRN ×2 (13:17)
[2017-09-28 13:20] LABS: ALANINE AMINOTRANSFERASE 28 U/L (21-72); ALBUMIN 2.9 g/dL (3.5-5.0); ALKALINE PHOSPHATASE 107 U/L (38-126); ANION GAP 13 (5-19); ASPARTATE AMINO TRANSFERASE 31 U/L (17-59); BILIRUBIN,DIRECT 0.5 mg/dL (0.0-0.4); BILIRUBIN,TOTAL 0.6 mg/dL (0.2-1.3); BLOOD UREA NITROGEN 34 mg/dL (7-20); CALCIUM 8.2 mg/dL (8.4-10.2); CARBON DIOXIDE 23 mmol/L (22-30); CHLORIDE 98 mmol/L (98-107); GLUCOSE 339 mg/dL (75-110); POTASSIUM 4.1 mmol/L (3.6-5.0); SODIUM 133.5 mmol/L (137-145); TOTAL PROTEIN 6.2 g/dL (6.3-8.2)
[2017-09-28] MEDS: NORMAL SALINE 1000 ML 1,000 ML IV PRN ×2 (13:52→18:12)
[2017-09-28] MEDS: IPRATROPIUM/ALBUTEROL 0.5-2.5 MG/3 ML AMPUL NEB SCH ×2 (14:23→19:33)
[2017-09-28] MEDS: INSULIN LISPRO 100 UNIT/ML 3 ML VIAL SUBCUT SCH (14:24)
[2017-09-28] MEDS: HEPARIN SOD (PORCINE) 5,000 UNIT/ML 1 ML SYRINGE SUBCUT SCH ×2 (14:25→21:39)
[2017-09-28] MEDS: INSULIN LISPRO 100 UNIT/ML 3 ML VIAL SUBCUT PRN ×2 (14:25→21:40)
[2017-09-28] MEDS ORDERED: PIPERACILLIN SODIUM/TAZOBACTAM 3.375 GM in NORMAL SALINE 100 ML IV SCH (15:00)
--- NOTE | 2017-09-28 16:07 | PDOC H&P ---
History of Present Illness Admission Date/PCP: 09/28/17 12:19 Patient complains of: Feeling weak all over for a couple of days History of Present Illness: LEEANNE WYLIE is a 57 year old male who is well-known to the hospitalist service due to similar presentation. He presented to emergency room complaining of generalized weakness, productive cough of white phlegm and pains all over his body. He denies fever or chills. Admits being thirsty and urinating a lot. Patient states that he had not been taking insulin but until yesterday because ran off. [facility] He also had been at the wound care center for a wound to his right leg. He states that is very difficult for him to take care of the wound since he is homeless and has to be on his feet all the time. When initially evaluated in emergency room blood sugar was in the 500s. IV access was difficult because of the impression of him being dehydrated. Only available blood work at the time of consulting was a CBC. BMP had been ordered and cancelled for some unknown reason. However, the consensus was that patient did not appear like his regular self. There was a concern about the possibility of a urinary tract infection. The hospitalist service was contacted and prompted to admit for further management as it appears that major issue continues being a diabetic foot infection with poorly controlled diabetes Past Medical History Cardiac Medical History: Reports: Hyperlipidema, Hypertension Pulmonary Medical History: Reports: Chronic Obstructive Pulmonary Disease (COPD) EENT Medical History: Reports: None Neurological Medical History: Reports: None Endocrine Medical History: Reports: Diabetes Mellitus Type 2 Malignancy Medical History: Reports: None GI Medical History: Reports: None Musculoskeltal Medical History: Reports: None Skin Medical History: Reports: None Psychiatric Medical History: Reports: Depression Traumatic Medical History: Reports: None Hematology: Reports: None Infectious Medical History: Reports: None Past Surgical History Past Surgical History: Reports: Orthopedic Surgery - fifth right toe amputated, Other - Umbilical hernia repair, amputation right 5th digit with 5t metatarsal bone Social History Information Source: Patient Lives with: Homeless - at [facility] Smoking Status: Current Some Day Smoker Frequency of Alcohol Use: None Hx Recreational Drug Use: No Drugs: None Hx Prescription Drug Abuse: No - Advance Directive Resuscitation Status: Do Not Resuscitate Family History Family History: Reviewed & Not Pertinent Parental Family History Reviewed: Yes Children Family History Reviewed: Yes Sibling(s) Family History Reviewed.: Yes Medication/Allergy Home Medications: No Home Medications 09/28/17 Allergies/Adverse Reactions: insulin regular [From Novolin 70/30] Allergy (Unknown, Verified 09/28/17 13:17) insulin isophane (NPH) [From Novolin 70/30] Allergy (Verified 09/28/17 13:17) metformin Allergy (Verified 09/28/17 13:17) Review of Systems Constitutional: ABSENT: chills, fatigue, fever(s) Eyes: ABSENT: visual disturbances Ears: ABSENT: hearing changes Nose, Mouth, and Throat: ABSENT: mouth pain, sore throat Cardiovascular: ABSENT: chest pain, dyspnea on exertion, edema Respiratory: PRESENT: cough Gastrointestinal: ABSENT: abdominal pain, nausea, vomiting Genitourinary: ABSENT: dysuria, hematuria Musculoskeletal: PRESENT: deformity Integumentary: PRESENT: wounds - To right foot Psychiatric: ABSENT: hallucinations Endocrine: PRESENT: polydipsia, polyphagia, polyuria Physical Exam Vital Signs: Temp Pulse Resp BP Pulse Ox 98.2 F 74 16 154/80 H 98 09/28/17 08:15 09/28/17 14:26 09/28/17 14:26 09/28/17 12:01 09/28/17 14:26 General appearance: PRESENT: no acute distress, cooperative, obese Head exam: PRESENT: atraumatic, normocephalic Eye exam: PRESENT: conjunctiva pink, EOMI, PERRLA Ear exam: PRESENT: normal external ear exam Mouth exam: PRESENT: moist Neck exam: PRESENT: full ROM. ABSENT: JVD, lymphadenopathy, tenderness Respiratory exam: PRESENT: rhonchi. ABSENT: tachypnea, unlabored, wheezes Cardiovascular exam: PRESENT: RRR. ABSENT: diastolic murmur, systolic murmur Vascular exam: PRESENT: normal capillary refill GI/Abdominal exam: PRESENT: normal bowel sounds, soft. ABSENT: tenderness Extremities exam: PRESENT: full ROM. ABSENT: pedal edema Musculoskeletal exam: PRESENT: ambulatory Neurological exam: PRESENT: alert, awake, oriented to person, oriented to place , oriented to time, oriented to situation, CN II-XII grossly intact Psychiatric exam: PRESENT: appropriate affect, normal mood Skin exam: PRESENT: other - There is a foul smelling wound localized to lateral aspect of right foot. Measuring around 3 cm x 1 cm x 1 cm. No discharge noted Results Laboratory Results: 09/28/17 12:38 09/28/17 12:38 Sodium 133.5 L Potassium 4.1 Chloride 98 Carbon Dioxide 23 Anion Gap 13 BUN 34 H Creatinine 1.47 H Est GFR ( Amer) 59 L Est GFR (Non-Af Amer) 49 L Glucose 339 H Calcium 8.2 L Total Bilirubin 0.6 AST 31 ALT 28 Alkaline Phosphatase 107 Total Protein 6.2 L Albumin 2.9 L Impressions: Chest X-Ray 09/28/17 08:59 IMPRESSION: NO ACUTE RADIOGRAPHIC FINDING IN THE CHEST. Foot X-Ray 09/28/17 09:00 IMPRESSION: Persistent plantar ulcer over the right mid foot at the level of the old 5th metatarsal osteotomy. Heterotopic ossification deep to the ulcer has demineralized since 09/06/2017 plain films worrisome for ongoing infection. Assessment & Plan - Diagnosis (1) Diabetic foot infection Is this a current diagnosis for this admission?: Yes Plan: To place patient on vancomycin and Zosyn. Consult surgical service. Patient made aware may need amputation. (2) Chronic pain in right foot Is this a current diagnosis for this admission?: Yes Plan: Judicious use of opioids (3) UTI (urinary tract infection) Qualifiers: Urinary tract infection type: acute cystitis Hematuria presence: with hematuria Qualified Code(s): N30.01 - Acute cystitis with hematuria Is this a current diagnosis for this admission?: Yes (4) Uncontrolled type 2 diabetes mellitus Qualifiers: Diabetes mellitus assisted insulin use: with mobile security architect use Diabetes mellitus complication status: with skin complications Is this a current diagnosis for this admission?: Yes Plan: To place patient on Lantus, Humalog premeal and sliding scale with bedside glucose AC and bedtime. Order fluids (5) HTN (hypertension) Qualifiers: Hypertension type: essential hypertension Qualified Code(s): I10 - Essential (primary) hypertension Is this a current diagnosis for this admission?: Yes Plan: Order norvasc and lisinopril (6) Acute on chronic renal failure Qualifiers: Chronic kidney disease stage: stage 3 (moderate) Is this a current diagnosis for this admission?: Yes Plan: Order fluids and trend. (7) Tobacco abuse Is this a current diagnosis for this admission?: Yes - Time Time Spent: 30 to 50 Minutes Medications reviewed and adjusted accordingly: Yes Anticipated discharge: Home with Homehealth Within: within 72 hours - Inpatient Certification Based on my medical assessment, after consideration of the patient's comorbidities, presenting symptoms, or acuity I expect that the services needed warrant INPATIENT care.: Yes I certify that my determination is in accordance with my understanding of Medicare's requirements for reasonable and necessary INPATIENT services [42 CFR 412.3e].: Yes Medical Necessity: Need Close Monitoring Due to Risk of Patient Decompensation, Need For IV Fluids, Need for IV Antibiotics
[2017-09-28] MEDS: PIPERACILLIN SODIUM/TAZOBACTAM 3.375 GM in NORMAL SALINE 100 ML IV SCH ×2 (17:19→21:39)
[2017-09-28] MEDS: OXYCODONE-ACETAMINOPHEN 5-325 MG TABLET PO PRN ×2 (17:28→21:41)
[2017-09-28] MEDS: ASCORBIC ACID 500 MG TABLET PO SCH (17:29)
[2017-09-28] MEDS: BUDESONIDE NEB 0.5 MG/2 ML AMPUL NEB SCH (19:33)
[2017-09-28] MEDS: INSULIN DETEMIR 100 UNIT/ML 3 ML PEN SUBCUT SCH (21:39)
[2017-09-28] MEDS: GUAIFENESIN 600 MG TABLET.SA PO SCH (21:42)
[2017-09-28] MEDS: VANCOMYCIN HCL 750 MG in DEXTROSE 5%-WATER 250 ML IV SCH (22:23)
[2017-09-29] MEDS: PIPERACILLIN SODIUM/TAZOBACTAM 3.375 GM in NORMAL SALINE 100 ML IV SCH ×4 (02:41→20:06)
[2017-09-29] MEDS: OXYCODONE-ACETAMINOPHEN 5-325 MG TABLET PO PRN ×3 (02:44→15:44)
[2017-09-29 05:10] LABS: HEMATOCRIT 33.9 % (37.9-51.0); MEAN CORPUSCULAR HEMOGLOBIN 27.6 pg (27.0-33.4); MEAN CORPUSCULAR HGB CONC 32.9 g/dL (32.0-36.0); MEAN CORPUSCULAR VOLUME 84 fl (80-97); PLATELET COUNT 208 10^3/uL (150-450); RED BLOOD COUNT 4.04 10^6/uL (4.35-5.55); RED CELL DISTRIBUTION WIDTH 14.7 % (11.5-14.0)
[2017-09-29 05:25] LABS: ANION GAP 9 (5-19); BLOOD UREA NITROGEN 36 mg/dL (7-20); CALCIUM 7.6 mg/dL (8.4-10.2); CARBON DIOXIDE 25 mmol/L (22-30); CHLORIDE 99 mmol/L (98-107); GLUCOSE 168 mg/dL (75-110); POTASSIUM 3.5 mmol/L (3.6-5.0); SODIUM 132.5 mmol/L (137-145)
[2017-09-29 05:33] LABS: HEMOGLOBIN 11.1 g/dL (13.5-17.0)
[2017-09-29 05:38] LABS: ABSOLUTE LYMPHOCYTES# (MANUAL) 1.5 10^3/uL (0.5-4.7); ABSOLUTE MONOCYTES # (MANUAL) 2.6 10^3/uL (0.1-1.4); BAND NEUTROPHILS % (MANUAL) 6 % (3-5); BASOPHILS % (MANUAL) 0 % (0-2); EOSINOPHILS % (MANUAL) 0 % (0-6); LYMPHOCYTES % (MANUAL) 10 % (13-45); MONOCYTES % (MANUAL) 17 % (3-13); SEGMENTED NEUTROPHILS % (MAN) 67 % (42-78); TOTAL CELLS COUNTED 100
[2017-09-29 05:39] LABS: PLATELET COMMENT ADEQUATE
[2017-09-29] MEDS: HEPARIN SOD (PORCINE) 5,000 UNIT/ML 1 ML SYRINGE SUBCUT SCH ×3 (05:41→22:54)
[2017-09-29 05:43] LABS: RBC MORPHOLOGY COMMENT NORMO-CYTIC/CHROMIC
[2017-09-29] MEDS: INSULIN LISPRO 100 UNIT/ML 3 ML VIAL SUBCUT SCH ×3 (08:21→15:52)
[2017-09-29] MEDS: IPRATROPIUM/ALBUTEROL 0.5-2.5 MG/3 ML AMPUL NEB SCH ×3 (08:26→19:32)
[2017-09-29] MEDS: BUDESONIDE NEB 0.5 MG/2 ML AMPUL NEB SCH ×2 (08:26→19:32)
[2017-09-29] MEDS: AMLODIPINE BESYLATE 5 MG TABLET PO SCH (09:04)
[2017-09-29] MEDS: INSULIN DETEMIR 100 UNIT/ML 3 ML PEN SUBCUT SCH ×2 (09:05→22:44)
[2017-09-29] MEDS: GUAIFENESIN 600 MG TABLET.SA PO SCH ×2 (09:05→22:50)
[2017-09-29] MEDS: LISINOPRIL 5 MG TABLET PO SCH (09:05)
[2017-09-29] MEDS: ASCORBIC ACID 500 MG TABLET PO SCH ×2 (09:05→17:52)
[2017-09-29] MEDS: INSULIN LISPRO 100 UNIT/ML 3 ML VIAL SUBCUT PRN ×2 (09:05→12:49)
[2017-09-29] MEDS: MULTIVITAMIN TABLET PO SCH (09:06)
[2017-09-29] MEDS: VANCOMYCIN HCL 750 MG in DEXTROSE 5%-WATER 250 ML IV SCH ×2 (09:06→22:50)
[2017-09-29] MEDS: NICOTINE 7 MG/24 HR PATCH.TD24 TD SCH (09:12)
[2017-09-29] MEDS ORDERED: DULOXETINE HCL 30 MG CAPSULE.DR PO ONE (11:30)
[2017-09-29] MEDS: GABAPENTIN 300 MG CAPSULE PO SCH ×2 (12:49→20:05)
[2017-09-29] MEDS: NORMAL SALINE 1000 ML 1,000 ML IV PRN (15:43)
--- NOTE | 2017-09-29 17:13 | PDOC PROGRESS REPORT ---
Subjective Progress Note for:: 09/29/17 Subjective:: Patient reports having pain to his right foot. Nurse states that Dr. Woo did a bedside debridement and afterwards patient was complaining of pain. Patient made aware that we need to work a regimen without the use of narcotics in anticipation for him to be discharged Review of system All organ systems evaluated and negative except as in subjective All significant laboratories and diagnostics have been reviewed Reason For Visit: DIABETIC RT FOOT INFECTION,UNCONTROLLED DIABETES Physical Exam Vital Signs: Temp Pulse Resp BP Pulse Ox 100.1 F 74 16 108/59 L 95 09/29/17 00:18 09/29/17 00:18 09/29/17 00:18 09/29/17 00:18 09/29/17 00:18 Intake & Output 09/27/17 09/28/17 09/29/17 06:59 06:59 06:59 Intake Total 46238 Output Total 1 Balance 62056 General appearance: PRESENT: cooperative, mild distress, obese Head exam: PRESENT: atraumatic, normocephalic Eye exam: PRESENT: conjunctiva pink, EOMI, PERRLA Ear exam: PRESENT: normal external ear exam Mouth exam: PRESENT: moist Neck exam: PRESENT: full ROM. ABSENT: JVD, lymphadenopathy, tenderness Respiratory exam: PRESENT: clear to auscultation manuel Cardiovascular exam: PRESENT: RRR. ABSENT: diastolic murmur, systolic murmur GI/Abdominal exam: PRESENT: normal bowel sounds, soft. ABSENT: tenderness Extremities exam: PRESENT: full ROM, pedal edema Musculoskeletal exam: PRESENT: ambulatory Neurological exam: PRESENT: alert, awake, oriented to person, oriented to place , oriented to time, oriented to situation, CN II-XII grossly intact Psychiatric exam: PRESENT: depressed Skin exam: PRESENT: normal color, other - Right foot covered with clean dressings Results Laboratory Results: 09/28/17 12:38 Sodium 133.5 L Potassium 4.1 Chloride 98 Carbon Dioxide 23 Anion Gap 13 BUN 34 H Creatinine 1.47 H Est GFR ( Amer) 59 L Est GFR (Non-Af Amer) 49 L Glucose 339 H Calcium 8.2 L Total Bilirubin 0.6 AST 31 ALT 28 Alkaline Phosphatase 107 Total Protein 6.2 L Albumin 2.9 L Impressions: Chest X-Ray 09/28/17 08:59 IMPRESSION: NO ACUTE RADIOGRAPHIC FINDING IN THE CHEST. Foot X-Ray 09/28/17 09:00 IMPRESSION: Persistent plantar ulcer over the right mid foot at the level of the old 5th metatarsal osteotomy. Heterotopic ossification deep to the ulcer has demineralized since 09/06/2017 plain films worrisome for ongoing infection. Assessment & Plan - Diagnosis (1) Diabetic foot infection Is this a current diagnosis for this admission?: Yes Plan: Continue vancomycin and Zosyn. Dr Sandoval following and appreciated (2) Chronic pain in right foot Is this a current diagnosis for this admission?: Yes Plan: Judicious use of opioids. Increace percocet dose. Order neurontin and cymbalta (3) UTI (urinary tract infection) Qualifiers: Urinary tract infection type: acute cystitis Hematuria presence: with hematuria Qualified Code(s): N30.01 - Acute cystitis with hematuria Is this a current diagnosis for this admission?: Yes Plan: Urine culture pending for final opinion regarding this initial concern. (4) Uncontrolled type 2 diabetes mellitus Qualifiers: Diabetes mellitus detention insulin use: with adjunct faculty for medical terminology use Diabetes mellitus complication status: with skin complications Is this a current diagnosis for this admission?: Yes Plan: Continue Lantus, Humalog premeal and sliding scale with bedside glucose AC and bedtime. Continue fluids. Improved (5) HTN (hypertension) Qualifiers: Hypertension type: essential hypertension Qualified Code(s): I10 - Essential (primary) hypertension Is this a current diagnosis for this admission?: Yes Plan: Continue norvasc and lisinopril (6) Acute on chronic renal failure Qualifiers: Chronic kidney disease stage: stage 3 (moderate) Is this a current diagnosis for this admission?: Yes Plan: Continue fluids and trending. Improving (7) Tobacco abuse Is this a current diagnosis for this admission?: Yes Plan: Continue nicotine patch. Educated - Time Time Spent with patient: 15-24 minutes Medications reviewed and adjusted accordingly: Yes Anticipated discharge: Other - Homeless longterm Within: within 48 hours - Inpatient Certification Based on my medical assessment, after consideration of the patient's comorbidities, presenting symptoms, or acuity I expect that the services needed warrant INPATIENT care.: Yes I certify that my determination is in accordance with my understanding of Medicare's requirements for reasonable and necessary INPATIENT services [42 CFR 412.3e].: Yes Medical Necessity: Significant Comorbidiites Make Outpatient Treatment Too Risky , Need Close Monitoring Due to Risk of Patient Decompensation, Need For IV Fluids, Need for IV Antibiotics
--- NOTE | 2017-09-29 21:33 | PDOC PROGRESS REPORT ---
Subjective Progress Note for:: 09/29/17 Subjective:: pains right foot Reason For Visit: DIABETIC RT FOOT INFECTION,UNCONTROLLED DIABETES Physical Exam Vital Signs: Temp Pulse Resp BP Pulse Ox 98.8 F 71 20 115/60 99 09/29/17 20:04 09/29/17 20:04 09/29/17 20:04 09/29/17 20:04 09/29/17 20:04 Intake & Output 09/28/17 09/29/17 09/30/17 06:59 06:59 06:59 Intake Total 1260 1930 Output Total 0 Balance 1260 1930 Weight 78.5 kg Exam: right foot dressing was changed by nurse this am. Will change dressing tomorrow. Wound was just debrided by Dr Woo Results Laboratory Results: 09/29/17 04:19 09/29/17 04:19 09/29/17 09/29/17 04:19 04:19 WBC 15.0 H RBC 4.04 L Hgb 11.1 L D Hct 33.9 L MCV 84 MCH 27.6 MCHC 32.9 RDW 14.7 H Plt Count 208 Seg Neutrophils % Not Reportable Lymphocytes % Not Reportable Monocytes % Not Reportable Eosinophils % Not Reportable Basophils % Not Reportable Absolute Neutrophils Not Reportable Absolute Lymphocytes Not Reportable Absolute Monocytes Not Reportable Absolute Eosinophils Not Reportable Absolute Basophils Not Reportable Sodium 132.5 L Potassium 3.5 L Chloride 99 Carbon Dioxide 25 Anion Gap 9 BUN 36 H Creatinine 1.66 H Est GFR ( Amer) 52 L Est GFR (Non-Af Amer) 43 L Glucose 168 H Calcium 7.6 L Magnesium 2.5 H Impressions: Chest X-Ray 09/28/17 08:59 IMPRESSION: NO ACUTE RADIOGRAPHIC FINDING IN THE CHEST. Foot X-Ray 09/28/17 09:00 IMPRESSION: Persistent plantar ulcer over the right mid foot at the level of the old 5th metatarsal osteotomy. Heterotopic ossification deep to the ulcer has demineralized since 09/06/2017 plain films worrisome for ongoing infection. Assessment & Plan - Time Time Spent with patient: 15-24 minutes - Plan Summary Plan Summary: Continue IV antibiotics Check right foot in am.
[2017-09-30] MEDS: GABAPENTIN 300 MG CAPSULE PO SCH ×3 (02:46→19:02)
[2017-09-30] MEDS: PIPERACILLIN SODIUM/TAZOBACTAM 3.375 GM in NORMAL SALINE 100 ML IV SCH (02:47)
[2017-09-30 05:31] LABS: ABSOLUTE EOSINOPHILS # (AUTO) 0.1 10^3/uL (0.0-0.6); ABSOLUTE NEUT (AUTO) 11.7 10^3/uL (1.7-8.2); BASOPHILS % (AUTO) 0.3 % (0-2); EOSINOPHILS % (AUTO) 0.9 % (0-6); HEMATOCRIT 35.7 % (37.9-51.0); HEMOGLOBIN 11.5 g/dL (13.5-17.0); LYMPHOCYTES % (AUTO) 6.7 % (13-45); MEAN CORPUSCULAR HEMOGLOBIN 27.3 pg (27.0-33.4); MEAN CORPUSCULAR HGB CONC 32.2 g/dL (32.0-36.0); MEAN CORPUSCULAR VOLUME 85 fl (80-97); MONOCYTES % (AUTO) 13.2 % (3-13); PLATELET COUNT 240 10^3/uL (150-450); RED BLOOD COUNT 4.21 10^6/uL (4.35-5.55); RED CELL DISTRIBUTION WIDTH 14.6 % (11.5-14.0); SEGMENTED NEUTROPHILS % (AUTO) 78.9 % (42-78); TOTAL CELLS COUNTED % (AUTO) 100 %; WHITE BLOOD COUNT 14.9 10^3/uL (4.0-10.5)
[2017-09-30 05:48] LABS: ANION GAP 10 (5-19); BLOOD UREA NITROGEN 24 mg/dL (7-20); CARBON DIOXIDE 23 mmol/L (22-30); CHLORIDE 104 mmol/L (98-107); GLUCOSE 117 mg/dL (75-110); POTASSIUM 3.7 mmol/L (3.6-5.0); SODIUM 137.3 mmol/L (137-145)
[2017-09-30] MEDS: HEPARIN SOD (PORCINE) 5,000 UNIT/ML 1 ML SYRINGE SUBCUT SCH ×3 (05:50→21:28)
[2017-09-30] MEDS: OXYCODONE-ACETAMINOPHEN 5-325 MG TABLET PO PRN ×2 (06:10→17:55)
[2017-09-30] MEDS: IPRATROPIUM/ALBUTEROL 0.5-2.5 MG/3 ML AMPUL NEB SCH ×3 (08:22→20:21)
[2017-09-30] MEDS: BUDESONIDE NEB 0.5 MG/2 ML AMPUL NEB SCH ×2 (08:22→20:21)
[2017-09-30] MEDS ORDERED: DULOXETINE HCL 30 MG CAPSULE.DR PO SCH (10:00)
[2017-09-30] MEDS: ASCORBIC ACID 500 MG TABLET PO SCH ×2 (10:16→17:56)
[2017-09-30] MEDS: CIPROFLOXACIN HCL 500 MG TABLET PO SCH ×2 (10:17→21:28)
[2017-09-30] MEDS: MULTIVITAMIN TABLET PO SCH (10:19)
[2017-09-30] MEDS: GUAIFENESIN 600 MG TABLET.SA PO SCH ×2 (10:19→21:28)
[2017-09-30] MEDS: INSULIN DETEMIR 100 UNIT/ML 3 ML PEN SUBCUT SCH ×2 (10:20→21:28)
[2017-09-30] MEDS: NICOTINE 7 MG/24 HR PATCH.TD24 TD SCH (10:25)
[2017-09-30 10:39] LABS: VANCOMYCIN,TROUGH 12.9 ug/mL (5.0-20.0)
[2017-09-30] MEDS: AMLODIPINE BESYLATE 5 MG TABLET PO SCH (10:44)
[2017-09-30] MEDS: LISINOPRIL 5 MG TABLET PO SCH (10:44)
[2017-09-30] MEDS: INSULIN LISPRO 100 UNIT/ML 3 ML VIAL SUBCUT SCH ×2 (12:04→19:02)
[2017-09-30] MEDS: INSULIN LISPRO 100 UNIT/ML 3 ML VIAL SUBCUT PRN (12:04)
[2017-09-30] MEDS ORDERED: CLINDAMYCIN HCL 150 MG CAPSULE PO SCH (14:00)
[2017-09-30] MEDS ORDERED: AMLODIPINE BESYLATE 5 MG TABLET PO SCH (17:35)
[2017-09-30] MEDS ORDERED: LISINOPRIL 5 MG TABLET PO SCH (17:35)
--- NOTE | 2017-09-30 17:37 | PDOC PROGRESS REPORT ---
Subjective Progress Note for:: 09/30/17 Subjective:: Patient found sitting comfortably on the reclining chair. He complains of pain in the right foot. Patient was made aware that he will have to follow-up with pain management clinic on discharge. Him being homeless makes him high risk for diversion of narcotics Review of system All organ systems evaluated and negative except as in subjective All significant laboratories and diagnostics have been reviewed Reason For Visit: DIABETIC RT FOOT INFECTION,UNCONTROLLED DIABETES Physical Exam Vital Signs: Temp Pulse Resp BP Pulse Ox 98.3 F 67 20 118/59 L 98 09/30/17 00:01 09/30/17 00:01 09/30/17 00:01 09/30/17 00:01 09/30/17 00:01 Intake & Output 09/29/17 09/30/17 10/01/17 06:59 06:59 06:59 Intake Total 1260 4466 Output Total 0 Balance 1260 4466 Weight 78.5 kg 77.5 kg General appearance: PRESENT: cooperative, obese Head exam: PRESENT: atraumatic, normocephalic Eye exam: PRESENT: EOMI, PERRLA Ear exam: PRESENT: normal external ear exam Mouth exam: PRESENT: moist Neck exam: PRESENT: full ROM. ABSENT: JVD, lymphadenopathy, tenderness Respiratory exam: PRESENT: clear to auscultation manuel Cardiovascular exam: PRESENT: RRR. ABSENT: diastolic murmur, systolic murmur Vascular exam: PRESENT: normal capillary refill GI/Abdominal exam: PRESENT: normal bowel sounds, soft. ABSENT: tenderness Extremities exam: PRESENT: full ROM, +1 edema Musculoskeletal exam: PRESENT: ambulatory Neurological exam: PRESENT: alert, awake, oriented to person, oriented to place , oriented to time, oriented to situation, CN II-XII grossly intact Psychiatric exam: PRESENT: appropriate affect, normal mood Skin exam: PRESENT: normal color, other - right foot covered with clean dressing. No foul smell present Results Laboratory Results: 09/30/17 04:40 09/30/17 04:40 09/30/17 09/30/17 04:40 04:40 WBC 14.9 H RBC 4.21 L Hgb 11.5 L Hct 35.7 L MCV 85 MCH 27.3 MCHC 32.2 RDW 14.6 H Plt Count 240 Seg Neutrophils % 78.9 H Lymphocytes % 6.7 L Monocytes % 13.2 H Eosinophils % 0.9 Basophils % 0.3 Absolute Neutrophils 11.7 H Absolute Lymphocytes 1.0 Absolute Monocytes 2.0 H Absolute Eosinophils 0.1 Absolute Basophils 0.0 Sodium 137.3 Potassium 3.7 Chloride 104 Carbon Dioxide 23 Anion Gap 10 BUN 24 H Creatinine 1.38 H Est GFR ( Amer) > 60 Est GFR (Non-Af Amer) 53 L Glucose 117 H Calcium 8.0 L Magnesium 2.6 H Impressions: Chest X-Ray 09/28/17 08:59 IMPRESSION: NO ACUTE RADIOGRAPHIC FINDING IN THE CHEST. Foot X-Ray 09/28/17 09:00 IMPRESSION: Persistent plantar ulcer over the right mid foot at the level of the old 5th metatarsal osteotomy. Heterotopic ossification deep to the ulcer has demineralized since 09/06/2017 plain films worrisome for ongoing infection. Assessment & Plan - Diagnosis (1) Diabetic foot infection Is this a current diagnosis for this admission?: Yes Plan: Polymicrobial. Growing gpc/gnb. Order Cipro and to continue for now. Change clindamycin to Ceftin (2) Chronic pain in right foot Is this a current diagnosis for this admission?: Yes Plan: Increase dose of opioid. Continue gabapentin and Cymbalta. Patient made aware need to follow-up with pain management clinic on discharge (3) UTI (urinary tract infection) Qualifiers: Urinary tract infection type: acute cystitis Hematuria presence: with hematuria Qualified Code(s): N30.01 - Acute cystitis with hematuria Is this a current diagnosis for this admission?: Yes Plan: Urine growing yeast and grew positive strep. Will start Diflucan and ceftin (4) Uncontrolled type 2 diabetes mellitus Qualifiers: Diabetes mellitus terminal superintendent insulin use: with intermediate use Diabetes mellitus complication status: with skin complications Is this a current diagnosis for this admission?: Yes Plan: Continue Lantus, Humalog premeal and sliding scale with bedside glucose AC and bedtime. Discontinue fluids. As expected better control since getting the medications for the treatment of diabetes (5) HTN (hypertension) Qualifiers: Hypertension type: essential hypertension Qualified Code(s): I10 - Essential (primary) hypertension Is this a current diagnosis for this admission?: Yes Plan: Increase dose of norvasc and lisinopril (6) Acute on chronic renal failure Qualifiers: Chronic kidney disease stage: stage 3 (moderate) Is this a current diagnosis for this admission?: Yes Plan: Improved (7) Tobacco abuse Is this a current diagnosis for this admission?: Yes Plan: Continue nicotine patch. Educated - Time Time Spent with patient: 15-24 minutes Medications reviewed and adjusted accordingly: Yes Anticipated discharge: Home Within: within 24 hours - Inpatient Certification Based on my medical assessment, after consideration of the patient's comorbidities, presenting symptoms, or acuity I expect that the services needed warrant INPATIENT care.: Yes I certify that my determination is in accordance with my understanding of Medicare's requirements for reasonable and necessary INPATIENT services [42 CFR 412.3e].: Yes Medical Necessity: Significant Comorbidiites Make Outpatient Treatment Too Risky
[2017-09-30] MEDS: FLUCONAZOLE 100 MG TABLET PO SCH (17:55)
--- NOTE | 2017-09-30 20:15 | PDOC PROGRESS REPORT ---
Subjective Progress Note for:: 09/30/17 Subjective:: Pains in his back more bothersome than pains on his right foot ulcer Reason For Visit: DIABETIC RT FOOT INFECTION,UNCONTROLLED DIABETES Physical Exam Vital Signs: Temp Pulse Resp BP Pulse Ox 98.1 F 74 18 158/74 H 99 09/30/17 16:03 09/30/17 16:03 09/30/17 16:03 09/30/17 16:03 09/30/17 16:03 Intake & Output 09/29/17 09/30/17 10/01/17 06:59 06:59 06:59 Intake Total 1260 4466 900 Output Total 0 Balance 1260 4466 900 Weight 78.5 kg 77.5 kg Exam: Right foot ulcer dressing changed with the nurse. A xeroform gauze was used as a gentle packing. No drainage noted. Results Laboratory Results: 09/30/17 04:40 09/30/17 10:01 09/30/17 09/30/17 09/30/17 04:40 04:40 10:01 WBC 14.9 H RBC 4.21 L Hgb 11.5 L Hct 35.7 L MCV 85 MCH 27.3 MCHC 32.2 RDW 14.6 H Plt Count 240 Seg Neutrophils % 78.9 H Lymphocytes % 6.7 L Monocytes % 13.2 H Eosinophils % 0.9 Basophils % 0.3 Absolute Neutrophils 11.7 H Absolute Lymphocytes 1.0 Absolute Monocytes 2.0 H Absolute Eosinophils 0.1 Absolute Basophils 0.0 Sodium 137.3 Potassium 3.7 Chloride 104 Carbon Dioxide 23 Anion Gap 10 BUN 24 H Creatinine 1.38 H 1.37 H Est GFR ( Amer) > 60 > 60 Est GFR (Non-Af Amer) 53 L 53 L Glucose 117 H Calcium 8.0 L Magnesium 2.6 H Impressions: Chest X-Ray 09/28/17 08:59 IMPRESSION: NO ACUTE RADIOGRAPHIC FINDING IN THE CHEST. Foot X-Ray 09/28/17 09:00 IMPRESSION: Persistent plantar ulcer over the right mid foot at the level of the old 5th metatarsal osteotomy. Heterotopic ossification deep to the ulcer has demineralized since 09/06/2017 plain films worrisome for ongoing infection. Assessment & Plan - Time Time Spent with patient: 15-24 minutes - Plan Summary Plan Summary: continue daily local wound care and IV antibiotics
[2017-09-30] MEDS: CEFUROXIME 500 MG TABLET PO SCH (21:28)
[2017-10-01] MEDS: GABAPENTIN 300 MG CAPSULE PO SCH ×3 (04:04→22:51)
[2017-10-01 04:36] LABS: ABSOLUTE BASOPHILS # (AUTO) 0.1 10^3/uL (0.0-0.2); ABSOLUTE EOSINOPHILS # (AUTO) 0.2 10^3/uL (0.0-0.6); ABSOLUTE LYMPHOCYTES (AUTO) 1.6 10^3/uL (0.5-4.7); ABSOLUTE MONOCYTES (AUTO) 1.4 10^3/uL (0.1-1.4); ABSOLUTE NEUT (AUTO) 10.5 10^3/uL (1.7-8.2); BASOPHILS % (AUTO) 0.4 % (0-2); EOSINOPHILS % (AUTO) 1.2 % (0-6); HEMATOCRIT 36.2 % (37.9-51.0); HEMOGLOBIN 12.2 g/dL (13.5-17.0); LYMPHOCYTES % (AUTO) 11.8 % (13-45); MEAN CORPUSCULAR HEMOGLOBIN 28.1 pg (27.0-33.4); MEAN CORPUSCULAR HGB CONC 33.7 g/dL (32.0-36.0); MEAN CORPUSCULAR VOLUME 83 fl (80-97); PLATELET COUNT 276 10^3/uL (150-450); RED BLOOD COUNT 4.34 10^6/uL (4.35-5.55); RED CELL DISTRIBUTION WIDTH 14.8 % (11.5-14.0); SEGMENTED NEUTROPHILS % (AUTO) 76.6 % (42-78); TOTAL CELLS COUNTED % (AUTO) 100 %; WHITE BLOOD COUNT 13.7 10^3/uL (4.0-10.5)
[2017-10-01 05:07] LABS: ANION GAP 10 (5-19); BLOOD UREA NITROGEN 23 mg/dL (7-20); CALCIUM 8.7 mg/dL (8.4-10.2); CARBON DIOXIDE 27 mmol/L (22-30); CHLORIDE 102 mmol/L (98-107); GLUCOSE 89 mg/dL (75-110)
[2017-10-01] MEDS: HEPARIN SOD (PORCINE) 5,000 UNIT/ML 1 ML SYRINGE SUBCUT SCH ×3 (05:09→22:54)
[2017-10-01 05:10] LABS: POTASSIUM 3.6 mmol/L (3.6-5.0)
[2017-10-01] MEDS: IPRATROPIUM/ALBUTEROL 0.5-2.5 MG/3 ML AMPUL NEB SCH ×2 (08:21→14:13)
[2017-10-01] MEDS: BUDESONIDE NEB 0.5 MG/2 ML AMPUL NEB SCH ×2 (08:21→19:32)
[2017-10-01] MEDS: INSULIN LISPRO 100 UNIT/ML 3 ML VIAL SUBCUT SCH ×3 (08:37→17:15)
[2017-10-01] MEDS: OXYCODONE-ACETAMINOPHEN 5-325 MG TABLET PO PRN (08:43)
[2017-10-01] MEDS: CIPROFLOXACIN HCL 500 MG TABLET PO SCH ×2 (11:21→22:50)
[2017-10-01] MEDS: CEFUROXIME 500 MG TABLET PO SCH ×2 (11:22→22:51)
[2017-10-01] MEDS: GUAIFENESIN 600 MG TABLET.SA PO SCH ×2 (11:24→22:51)
[2017-10-01] MEDS: LISINOPRIL 10 MG TABLET PO SCH (11:24)
[2017-10-01] MEDS: TIZANIDINE HCL 4 MG TABLET PO SCH ×3 (11:24→17:30)
[2017-10-01] MEDS: DULOXETINE HCL 30 MG CAPSULE.DR PO SCH (11:24)
[2017-10-01] MEDS: AMLODIPINE BESYLATE 10 MG TABLET PO SCH (11:24)
[2017-10-01] MEDS: MULTIVITAMIN TABLET PO SCH (11:26)
[2017-10-01] MEDS: NICOTINE 7 MG/24 HR PATCH.TD24 TD SCH (11:28)
[2017-10-01] MEDS: ASCORBIC ACID 500 MG TABLET PO SCH ×2 (11:28→17:05)
--- NOTE | 2017-10-01 15:23 | PDOC PROGRESS REPORT ---
Subjective Progress Note for:: 10/01/17 Subjective:: Patient was found laying on the hospital bed. Claimed that he has been having difficulty walking and back pain since yesterday. Nurse accompanied the author on rounds. She states that patient began complaining of back pain last night. Patient had been having regular bowel and urine movements. Patient also complains of having weakness to his legs. Patient claims that the author had not checked him. He also complains of being in a lot of pain. My understanding when talking to the nurse patient has usual got upset because Percocet dose was decreased. Again has been made aware that this is a long- standing issue on him and that he will need to follow-up upon discharge with a pain management clinic Review of system All organ systems evaluated and negative except as in subjective All significant laboratories and diagnostics have been reviewed Reason For Visit: DIABETIC RT FOOT INFECTION,UNCONTROLLED DIABETES Physical Exam Vital Signs: Temp Pulse Resp BP Pulse Ox 97.4 F 69 20 148/66 H 96 10/01/17 07:23 10/01/17 07:23 10/01/17 07:23 10/01/17 07:23 10/01/17 07:23 Intake & Output 09/30/17 10/01/17 10/02/17 06:59 06:59 06:59 Intake Total 4466 1654 Balance 4466 1654 Weight 77.5 kg 77.8 kg General appearance: PRESENT: obese, other - Patient appears to be bad mood Head exam: PRESENT: atraumatic, normocephalic Eye exam: PRESENT: conjunctiva pink, EOMI, PERRLA Ear exam: PRESENT: normal external ear exam Mouth exam: PRESENT: moist Neck exam: PRESENT: full ROM. ABSENT: JVD, lymphadenopathy, tenderness Respiratory exam: PRESENT: clear to auscultation manuel Cardiovascular exam: PRESENT: RRR. ABSENT: diastolic murmur, systolic murmur Vascular exam: PRESENT: normal capillary refill GI/Abdominal exam: PRESENT: normal bowel sounds, soft. ABSENT: tenderness Extremities exam: PRESENT: full ROM Musculoskeletal exam: PRESENT: ambulatory, other - Patient upon palpation of paraspinous process in lumbar area Neurological exam: PRESENT: alert, awake, oriented to person, oriented to place , oriented to time, oriented to situation, CN II-XII grossly intact Psychiatric exam: PRESENT: agitated, anxious Skin exam: PRESENT: normal color, other - Right foot unable to examine since covered with clean dressings Results Laboratory Results: 10/01/17 04:15 10/01/17 04:15 0410/01/17 10/01/17 10:01 04:15 04:15 WBC 13.7 H RBC 4.34 L Hgb 12.2 L Hct 36.2 L MCV 83 MCH 28.1 MCHC 33.7 RDW 14.8 H Plt Count 276 Seg Neutrophils % 76.6 Lymphocytes % 11.8 L Monocytes % 10.0 Eosinophils % 1.2 Basophils % 0.4 Absolute Neutrophils 10.5 H Absolute Lymphocytes 1.6 Absolute Monocytes 1.4 Absolute Eosinophils 0.2 Absolute Basophils 0.1 Sodium 139.0 Potassium 3.6 Chloride 102 Carbon Dioxide 27 Anion Gap 10 BUN 23 H Creatinine 1.37 H 1.18 Est GFR ( Amer) > 60 > 60 Est GFR (Non-Af Amer) 53 L > 60 Glucose 89 Calcium 8.7 Magnesium 2.8 H Impressions: Chest X-Ray 09/28/17 08:59 IMPRESSION: NO ACUTE RADIOGRAPHIC FINDING IN THE CHEST. Foot X-Ray 09/28/17 09:00 IMPRESSION: Persistent plantar ulcer over the right mid foot at the level of the old 5th metatarsal osteotomy. Heterotopic ossification deep to the ulcer has demineralized since 09/06/2017 plain films worrisome for ongoing infection. Assessment & Plan - Diagnosis (1) Diabetic foot infection Is this a current diagnosis for this admission?: Yes Plan: Polymicrobial. Currently well covered with Cipro and Ceftin (2) Chronic pain in right foot Is this a current diagnosis for this admission?: Yes Plan: Increase gabapentin and Cymbalta dose. Continue current dose of Percocet patient made aware need to follow-up with pain management clinic on discharge (3) UTI (urinary tract infection) Qualifiers: Urinary tract infection type: acute cystitis Hematuria presence: with hematuria Qualified Code(s): N30.01 - Acute cystitis with hematuria Is this a current diagnosis for this admission?: Yes Plan: Urine growing yeast and group B strep. Continue Diflucan and ceftin (4) Uncontrolled type 2 diabetes mellitus Qualifiers: Diabetes mellitus shelter insulin use: with manager intermediate use Diabetes mellitus complication status: with skin complications Is this a current diagnosis for this admission?: Yes Plan: Continue Lantus, Humalog premeal and sliding scale with bedside glucose AC and bedtime. As expected better control since getting the medications for the treatment of diabetes (5) HTN (hypertension) Qualifiers: Hypertension type: essential hypertension Qualified Code(s): I10 - Essential (primary) hypertension Is this a current diagnosis for this admission?: Yes Plan: Continue norvasc and lisinopril (6) Acute on chronic renal failure Qualifiers: Chronic kidney disease stage: stage 3 (moderate) Is this a current diagnosis for this admission?: Yes Plan: Improved (7) Tobacco abuse Is this a current diagnosis for this admission?: Yes Plan: Continue nicotine patch. Educated (8) Back pain Qualifiers: Back pain location: low back pain Back pain laterality: bilateral Is this a current diagnosis for this admission?: Yes Plan: Add muscle relaxer and request an MRI. Pain appears to be musculoskeletal to order physical therapy - Time Time Spent with patient: 15-24 minutes Medications reviewed and adjusted accordingly: Yes Anticipated discharge: Home Within: within 24 hours - Inpatient Certification Based on my medical assessment, after consideration of the patient's comorbidities, presenting symptoms, or acuity I expect that the services needed warrant INPATIENT care.: Yes I certify that my determination is in accordance with my understanding of Medicare's requirements for reasonable and necessary INPATIENT services [42 CFR 412.3e].: Yes Medical Necessity: Significant Comorbidiites Make Outpatient Treatment Too Risky
[2017-10-01] MEDS ORDERED: OXYCODONE-ACETAMINOPHEN 5-325 MG TABLET PO PRN (15:29)
[2017-10-01] MEDS: INSULIN DETEMIR 100 UNIT/ML 3 ML PEN SUBCUT SCH ×2 (17:14→22:50)
[2017-10-01] MEDS: FLUCONAZOLE 100 MG TABLET PO SCH (17:30)
--- NOTE | 2017-10-01 17:46 | RADIOLOGY REPORT (SQ) ---
EXAM DESCRIPTION: MRI LUMBAR SPINE WITHOUT COMPLETED DATE/TIME: 10/01/2017 5:26 pm REASON FOR STUDY: Back pain COMPARISON: None. TECHNIQUE: Sagittal and Axial imaging includes T1, T2, STIR and gradient echo sequences. Coronal T2/ HASTE imaging. LIMITATIONS: None. FINDINGS: VISUALIZED UPPER ABDOMEN: Limited evaluation. No acute or suspicious findings suggested. SEGMENTATION: No transitional anatomy. The lowest well-developed disc space is labeled L5-S1. ALIGNMENT: Anatomic. VERTEBRAE: Intact. BONE MARROW: Decreased T1 weighted fatty marrow content, suspect red marrow conversion from anemia DISC SIGNAL: Decreased T2 weighted intervertebral disc signal at L3-4, L4-5, and L5-S1 POSTERIOR ELEMENTS: Generally intact. No pars defect evident. HARDWARE: None in the spine. CORD AND CONUS: Normal in size and signal intensity. Conus at the L1-2 level. SOFT TISSUES: No aortic aneurysm seen. No bulky retroperitoneal adenopathy or mass. No paraspinal mas s or fluid. Diffuse bladder distention. T11-12: No central or foraminal stenosis. Bilateral facet hypertrophy. T12-L1: No central or foraminal stenosis. Bilateral facet hypertrophy L1-L2: Moderate bilateral facet hypertrophy. No central or foraminal encroachment L2-L3: Moderate bilateral facet hypertrophy. No central or foraminal encroachment. L3-L4: Moderate central canal stenosis with effacement of the CSF around the lumbar nerve roots resul ts from broad diffuse posterior disc bulging and bulky bilateral facet and ligament hypertrophy. Thi s is best shown on axial T2 image 18. There is moderate bilateral foraminal narrowing without exitin g L3 nerve root impingement. L4-L5: Moderate to high-grade central canal stenosis results from broad diffuse posterior disc bulge, superimposed central and right paracentral disc protrusion/ herniation, and moderate bilateral facet and ligament hypertrophy. There is effacement of the CSF around the lumbar nerve roots best shown o n axial image 24. Asymmetric flattening of the thecal sac at the takeoff of the right proximal S1 ne rve root is present. There is moderate bilateral foraminal narrowing without exiting L4 nerve root i mpingement. L5-S1: Broad diffuse disc bulge and a small central disc protrusion/ herniation along with moderate f acet hypertrophy causes borderline central canal narrowing. High-grade right foraminal narrowing wit h effacement of the fat around the exiting right L5 nerve root in the neural foramen. Moderate left foraminal narrowing. SACRUM: Visualized upper sacrum intact. OTHER: No other significant findings. IMPRESSION: Significant central canal stenosis at L3-4 and L4-5. Significant foraminal narrowing on the right at L5-S1. TECHNICAL DOCUMENTATION: JOB ID: [id number] [employer]- All Rights Reserved Reading location - IP/workstation name: [email or web address]
[2017-10-01] MEDS: INSULIN LISPRO 100 UNIT/ML 3 ML VIAL SUBCUT PRN (22:50)
[2017-10-02] MEDS: HEPARIN SOD (PORCINE) 5,000 UNIT/ML 1 ML SYRINGE SUBCUT SCH ×2 (05:37→14:51)
[2017-10-02] MEDS: GABAPENTIN 300 MG CAPSULE PO SCH ×2 (06:30→15:48)
[2017-10-02] MEDS: BUDESONIDE NEB 0.5 MG/2 ML AMPUL NEB SCH (07:45)
[2017-10-02] MEDS: TIZANIDINE HCL 4 MG TABLET PO SCH ×2 (09:39→15:48)
[2017-10-02] MEDS: DULOXETINE HCL 30 MG CAPSULE.DR PO SCH (09:39)
[2017-10-02] MEDS: LISINOPRIL 10 MG TABLET PO SCH (09:39)
[2017-10-02] MEDS: INSULIN DETEMIR 100 UNIT/ML 3 ML PEN SUBCUT SCH (09:40)
[2017-10-02] MEDS: CIPROFLOXACIN HCL 500 MG TABLET PO SCH (09:40)
[2017-10-02] MEDS: CEFUROXIME 500 MG TABLET PO SCH (09:40)
[2017-10-02] MEDS: AMLODIPINE BESYLATE 10 MG TABLET PO SCH (09:40)
[2017-10-02] MEDS: GUAIFENESIN 600 MG TABLET.SA PO SCH (09:40)
[2017-10-02] MEDS: INSULIN LISPRO 100 UNIT/ML 3 ML VIAL SUBCUT SCH ×2 (09:41→13:31)
[2017-10-02] MEDS: ASCORBIC ACID 500 MG TABLET PO SCH (09:42)
[2017-10-02] MEDS: MULTIVITAMIN TABLET PO SCH (09:42)
[2017-10-02] MEDS: NICOTINE 7 MG/24 HR PATCH.TD24 TD SCH (09:42)
[2017-10-02] MEDS ORDERED: OXYCODONE HCL IR 5 MG TABLET PO PRN (12:13)
[2017-10-02] MEDS ORDERED: HYDRALAZINE HCL 10 MG TABLET PO ONE (12:40)
[2017-10-02] MEDS ORDERED: HYDRALAZINE HCL INJ/PF 20 MG/1 ML SDV IV ONE (13:30)
[2017-10-02 15:56] VITALS: BP 140/80
--- NOTE | 2017-10-03 17:04 | PDOC DISCHARGE SUMMARY ---
General - Admit/Disc Date/PCP Admission Date/Primary Care Provider: 09/28/17 12:19 Discharge Date: 10/02/17 - Discharge Diagnosis (1) Acute on chronic renal failure Is this a current diagnosis for this admission?: Yes Summary: Improved. Acute on chronic renal failure in the setting of uncontrolled hypertension and type 2 diabetes mellitus. The patient was provided IV fluids and oral intake was encouraged. Creatinine trended down from 1.66-1.18 at time of discharge. (2) Chronic pain in right foot Is this a current diagnosis for this admission?: Yes Summary: The patient's gabapentin and Cymbalta dosing were increased. He was provided Percocet while inpatient and a short prescription for the same that must be filled at the time of his antibiotic prescriptions. He is advised that he will require follow-up with primary care provider and pain management for continued management of his chronic pain. (3) Diabetic foot infection Is this a current diagnosis for this admission?: Yes Summary: Polymicrobial; diabetic wound culture is positive for group B beta strep, Prevotella species, Alcaligebes species. Surgical services were consulted and determined that he did not require surgical interventions at this time. Patient was appropriately treated with Cipro and Ceftin; he was provided vouchers for prescriptions at discharge. (4) HTN (hypertension) Is this a current diagnosis for this admission?: Yes Summary: Appropriate blood pressure control was achieved with Norvasc and lisinopril. (5) Tobacco abuse Is this a current diagnosis for this admission?: Yes Summary: Smoking cessation was encouraged; nicotine replacement therapies were offered and prescriptions for NicoDerm patches were provided at discharge. (6) UTI (urinary tract infection) Is this a current diagnosis for this admission?: Yes Summary: Urine culture resulted in group B streptococcus and yeast. Patient received Diflucan 3 days while inpatient. He was also adequately treated with ceftin. (7) Uncontrolled type 2 diabetes mellitus Is this a current diagnosis for this admission?: Yes Summary: Appropriate glucose control was achieved with Lantus and Humalog pre-meal with sliding scale coverage. He is discharged with prescriptions for both. (8) Spinal stenosis of lumbar region Is this a current diagnosis for this admission?: Yes Summary: The day prior to discharge, the patient reported severe lower back pain and intermittent, migrating, leg pain that worsened with activity and was impeding his ability to walk. MRI was obtained and revealed L3 through S1 spinal stenosis. Physical therapy assessment was completed with recommendations for a walker which was obtained by discharge planning services and provided to the patient. With the walker, the patient was capable of independently standing from reclined position and ambulating. He was provided prescriptions for muscle relaxer, short prescription of oxycodone, and instructed to follow-up with his primary care provider or pain management clinic for continued management of back pain. - Additional Information Resuscitation Status: Do Not Resuscitate Discharge Diet: Diabetic Discharge Activity: Activity As Tolerated Prescriptions: Amlodipine Besylate [Norvasc 10 mg Tablet] 10 mg PO DAILY #30 tablet Ascorbic Acid [Vitamin C 500 mg Tablet] 500 mg PO BID #60 tablet Cefuroxime Axetil [Ceftin 500 mg Tablet] 500 mg PO Q12 #20 tablet Ciprofloxacin HCl [Cipro 500 mg Tablet] 250 mg PO Q12 #20 tablet Duloxetine HCl [Cymbalta 30 mg Capsule.] 60 mg PO DAILY #30 capsule.dr Gabapentin [Neurontin 300 mg Capsule] 600 mg PO Q8 #90 capsule Insulin Detemir [Levemir Insulin 100 units/mL] 35 unit SUBCUT Q12 #3 insuln.pen Insulin Lispro [Humalog Insulin (Lispro) 100 unit/mL] 7 unit SUBCUT AC #300 unit Lisinopril [Prinivil 10 mg Tablet] 20 mg PO DAILY #30 tablet Nicotine [Nicoderm 7 mg/24 Hr Transdermal Patch] 1 each TD DAILY #14 patch.td24 Oxycodone HCl/Acetaminophen [Percocet 5-325 mg Tablet] 1 tab PO Q6HP PRN #12 tablet PRN Reason: Oxycodone HCl [Oxycodone HCl 10 MG Tablet] 10 mg PO Q6H #18 tablet Tizanidine HCl [Zanaflex 4 mg Tablet] 4 mg PO TID #30 tablet Home Medications: Acetaminophen [Tylenol 325 mg Tablet] 325 mg PO Q4HP PRN tablet 10/02/17 Amlodipine Besylate [Norvasc 10 mg Tablet] 10 mg PO DAILY #30 tablet 10/02/17 Ascorbic Acid [Vitamin C 500 mg Tablet] 500 mg PO BID #60 tablet 10/02/17 Cefuroxime Axetil [Ceftin 500 mg Tablet] 500 mg PO Q12 #20 tablet 10/02/17 Ciprofloxacin HCl [Cipro 500 mg Tablet] 250 mg PO Q12 #20 tablet 10/02/17 Duloxetine HCl [Cymbalta 30 mg Capsule.] 60 mg PO DAILY #30 capsule. Gabapentin [Neurontin 300 mg Capsule] 600 mg PO Q8 #90 capsule 10/02/17 Insulin Detemir [Levemir Insulin 100 units/mL] 35 unit SUBCUT Q12 #3 insuln.pen 10/02/17 Insulin Lispro [Humalog Insulin (Lispro) 100 unit/mL] 7 unit SUBCUT AC #300 unit 10/02/17 Lisinopril [Prinivil 10 mg Tablet] 20 mg PO DAILY #30 tablet 10/02/17 Multivitamin [Tab-A-Vi (Multiple Vitamin) Tablet] 1 tab PO DAILY tablet 10/02 Nicotine [Nicoderm 7 mg/24 Hr Transdermal Patch] 1 each TD DAILY #14 patch.td24 10/02/17 Oxycodone HCl [Oxycodone HCl 10 MG Tablet] 10 mg PO Q6H #18 tablet 10/02/17 Oxycodone HCl/Acetaminophen [Percocet 5-325 mg Tablet] 1 tab PO Q6HP PRN #12 tablet 10/02/17 Tizanidine HCl [Zanaflex 4 mg Tablet] 4 mg PO TID #30 tablet 10/02/17 History of Present Illness History of Present Illness: Her H&P by Dr. Feldman: LEEANNE WYLIE is a 57 year old male who is well-known to the hospitalist service due to similar presentation. He presented to emergency room complaining of generalized weakness, productive cough of white phlegm and pains all over his body. He denies fever or chills. Admits being thirsty and urinating a lot. Patient states that he had not been taking insulin but until yesterday because ran off. [facility] He also had been at the wound care center for a wound to his right leg. He states that is very difficult for him to take care of the wound since he is homeless and has to be on his feet all the time. When initially evaluated in emergency room blood sugar was in the 500s. IV access was difficult because of the impression of him being dehydrated. Only available blood work at the time of consulting was a CBC. BMP had been ordered and cancelled for some unknown reason. However , the consensus was that patient did not appear like his regular self. There was a concern about the possibility of a urinary tract infection. The hospitalist service was contacted and prompted to admit for further management as it appears that major issue continues being a diabetic foot infection with poorly controlled diabetes Physical Exam Vital Signs: Temp Pulse Resp BP Pulse Ox 98.4 F 63 18 140/80 H 100 10/02/17 15:54 10/02/17 15:54 10/02/17 15:54 10/02/17 15:54 10/02/17 15:54 Intake & Output 10/02/17 10/03/17 10/04/17 06:59 06:59 06:59 Intake Total 1295 739 Balance 1295 739 Weight 77.1 kg General appearance: PRESENT: no acute distress, well-developed, well-nourished, other - Overweight Head exam: PRESENT: atraumatic, normocephalic Eye exam: PRESENT: conjunctiva pink, EOMI, PERRLA. ABSENT: scleral icterus Ear exam: PRESENT: normal external ear exam Mouth exam: PRESENT: moist, tongue midline Neck exam: ABSENT: carotid bruit, JVD, lymphadenopathy, thyromegaly Respiratory exam: PRESENT: clear to auscultation manuel. ABSENT: rales, rhonchi, wheezes Cardiovascular exam: PRESENT: RRR. ABSENT: diastolic murmur, rubs, systolic murmur Pulses: PRESENT: normal dorsalis pedis pul Vascular exam: PRESENT: normal capillary refill GI/Abdominal exam: PRESENT: normal bowel sounds, soft. ABSENT: distended, guarding, mass, organolmegaly, rebound, tenderness Rectal exam: PRESENT: deferred Extremities exam: PRESENT: full ROM. ABSENT: calf tenderness, clubbing, pedal edema Neurological exam: PRESENT: alert, awake, oriented to person, oriented to place , oriented to time, oriented to situation, CN II-XII grossly intact. ABSENT: motor sensory deficit Psychiatric exam: PRESENT: agitated - confrontational, appropriate affect. ABSENT: homicidal ideation, suicidal ideation Skin exam: PRESENT: dry, warm. ABSENT: cyanosis, intact, rash Results Laboratory Results: 10/01/17 04:15 10/01/17 04:15 Impressions: Chest X-Ray 09/28/17 08:59 IMPRESSION: NO ACUTE RADIOGRAPHIC FINDING IN THE CHEST. Foot X-Ray 09/28/17 09:00 IMPRESSION: Persistent plantar ulcer over the right mid foot at the level of the old 5th metatarsal osteotomy. Heterotopic ossification deep to the ulcer has demineralized since 09/06/2017 plain films worrisome for ongoing infection. Lumbar Spine MRI 10/01/17 00:00 IMPRESSION: Significant central canal stenosis at L3-4 and L4-5. Significant foraminal narrowing on the right at L5-S1. Qualifiers - * PATEINT BEING DISCHARGED WITH ANY OF THE FOLLOWING DIAGNOSIS?: No Plan Discharge Plan: Discharge to self-care; patient is provided a taxi voucher to return to homeless [facility] living. He is provided vouchers for his antibiotic prescriptions. [facility].
== END 2017-10-02 18:03 | disposition home or self-care (01) | DRG 638 ==
LOC: ER 08:10 → EH 12:19 → 4N 16:39
PROVIDERS: ADMIT Family Medicine; ATTEND Family Medicine
PROC: 3E0F73Z Introduction of Anti-inflammatory into Respiratory Tract, Via Natural or Artificial Opening (ICD-10-PCS; principal; 2017-09-28)
DX: E11.621 Type 2 diabetes mellitus with foot ulcer (principal); B37.49 Other urogenital candidiasis; N30.01 Acute cystitis with hematuria; L97.419 Non-pressure chronic ulcer of right heel and midfoot with unspecified severity; N17.9 Acute kidney failure, unspecified; E11.65 Type 2 diabetes mellitus with hyperglycemia; N18.3 Chronic kidney disease, stage 3 (moderate); Z66 Do not resuscitate; I12.9 Hypertensive chronic kidney disease with stage 1 through stage 4 chronic kidney disease, or unspecified chronic kidney disease; E11.22 Type 2 diabetes mellitus with diabetic chronic kidney disease; B95.1 Streptococcus, group B, as the cause of diseases classified elsewhere; B96.89 Other specified bacterial agents as the cause of diseases classified elsewhere; M48.061 Spinal stenosis, lumbar region without neurogenic claudication; E78.00 Pure hypercholesterolemia, unspecified; J44.9 Chronic obstructive pulmonary disease, unspecified; F32.9 Major depressive disorder, single episode, unspecified; M54.5 Low back pain; E11.40 Type 2 diabetes mellitus with diabetic neuropathy, unspecified; F41.9 Anxiety disorder, unspecified; E66.9 Obesity, unspecified; Z68.28 Body mass index [BMI] 28.0-28.9, adult; F17.210 Nicotine dependence, cigarettes, uncomplicated; Z59.0 Homelessness; Z89.421 Acquired absence of other right toe(s); Z79.899 Other long term (current) drug therapy; Z79.4 Long term (current) use of insulin; Z91.14 Patient's other noncompliance with medication regimen
CPT/HCPCS: 36415; 71046; 72148; 80048; 80053; 80202; 81001; 82565; 82803; 82962; 83735; 84443; 85025; 87040; 87070; 87075; 87077; 87086; 87088; 87186; 87205; 94640; 96361; 96365; 99285; J0360; J1644; J1815; J2543; J3370; J3490; J7030; J7060; J7620; S0119

== ENCOUNTER 2017-10-08 08:18 | Emergency (ER) | payer SELFPAY ==
[2017-10-08 08:24] VITALS: BP 194/92
[2017-10-08] MEDS ORDERED: IPRATROPIUM/ALBUTEROL 0.5-2.5 MG/3 ML AMPUL NEB ONE (09:13)
[2017-10-08] MEDS ORDERED: AMLODIPINE BESYLATE 10 MG TABLET PO ONE (09:20)
[2017-10-08] MEDS ORDERED: LISINOPRIL 10 MG TABLET PO ONE (09:20)
[2017-10-08] MEDS ORDERED: LIDOCAINE 5% (700 MG) TRANSDERMAL ADH..PATCH TP ONE (09:28)
--- NOTE | 2017-10-08 09:50 | ER Document Report ---
HPI - HPI Patient complains to provider of: dressing change Onset: Just prior to arrival Onset/Duration: Gradual Quality of pain: Achy Pain Level: 2 Context: Patient was recently discharged from the hospital 5 days ago for a diabetic foot ulcer. Patient states that he does not have money and has not been able to afford his prescriptions. Patient was given assistance to get the antibiotics to treat his osteomyelitis and has been compliant with taking his antibiotics. Patient has not been able to afford pain medication or his blood pressure medication. 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 Associated Symptoms: Other - low back pain. denies: Fever, Vomiting Exacerbated by: Movement Relieved by: Denies Similar symptoms previously: Yes Recently seen / treated by doctor: Yes - ROS ROS below otherwise negative: Yes Systems Reviewed and Negative: Yes All other systems reviewed and negative - CONSTITUTIONAL Constitutional: DENIES: Fever, Chills - EENT EENT: DENIES: Sore Throat, Ear Pain, Eye problems - NEURO Neurology: DENIES: Headache, Weakness, Vision blurred, Dizzinesss / Vertigo - CARDIOVASCULAR Cardiovascular: DENIES: Chest pain - RESPIRATORY Respiratory: REPORTS: Coughing. DENIES: Trouble Breathing - GASTROINTESTINAL Gastrointestinal: DENIES: Abdominal Pain, Patient vomiting, Black / Bloody Stools - URINARY Urinary: DENIES: Dysuria, Urgency, Frequency - MUSCULOSKELETAL Musculoskeletal: REPORTS: Extremity pain - right foot, Back Pain. DENIES: Neck Pain - DERM Skin Color: Normal Notes: Chronic diabetic foot ulcer Past Medical History - General Information source: Patient - Social History Smoking Status: Former Smoker Chew tobacco use (# tins/day): No Frequency of alcohol use: None Drug Abuse: None Lives with: Homeless Family History: Reviewed & Not Pertinent Patient has suicidal ideation: No Patient has homicidal ideation: No - Past Medical History Cardiac Medical History: Reports: Hx Hypercholesterolemia, Hx Hypertension Pulmonary Medical History: Reports: Hx COPD Endocrine Medical History: Reports: Hx Diabetes Mellitus Type 1, Hx Diabetes Mellitus Type 2 Renal/ Medical History: Reports: Hx Renal Insufficiency. 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 bone Vertical Provider Document - CONSTITUTIONAL Agree With Documented VS: Yes Exam Limitations: No Limitations General Appearance: WD/WN, No Apparent Distress - INFECTION CONTROL TRAVEL OUTSIDE OF THE [place] IN LAST 30 DAYS: No - HEENT HEENT: Atraumatic, Normocephalic - NECK Neck: Normal Inspection, Supple - RESPIRATORY Respiratory: Breath Sounds Normal, No Respiratory Distress - CARDIOVASCULAR Cardiovascular: Regular Rate, Regular Rhythm, No Murmur Pulses: Normal: Dorsalis pedis - BACK Back: Abnormal Inspection - Lumbar paraspinal tenderness, no step-off or deformity. negative: CVA Tenderness-Right, CVA Tenderness-Left - MUSCULOSKELETAL/EXTREMETIES Musculoskeletal/Extremeties: MAEW - NEURO Level of Consciousness: Awake, Alert, Appropriate Motor/Sensory: No Motor Deficit Notes: No saddle anesthesia, no footdrop - DERM Integumentary: Warm, Dry Notes: Diabetic ulcer to the lateral aspect of right foot, no purulent drainage noted, no surrounding erythema Course - Re-evaluation Re-evalutation: 10/08/17 09:[address] Bro regarding patient presentation and agrees with anticipated discharge plan of care. Discharge planning services consulted and will be by to speak with patient. 10/08/17 Discharge planning has the community superintendent refuse disposal that is going to take patient to get food and [facility] and to get him set up for their medication assistance program. Patient without any findings concerning for sepsis. Patient is agreeable to this plan of care. - Vital Signs Vital signs: Temp Pulse Resp BP Pulse Ox 97.8 F 83 16 194/92 H 98 10/08/17 08:22 10/08/17 08:22 10/08/17 08:22 10/08/17 08:22 10/08/17 08:22 - Diagnostic Test Radiology reviewed: Reports reviewed - Reviewed reports from previous admission Discharge - Discharge Clinical Impression: Hx of essential hypertension, History of COPD Diabetic foot ulcer Qualifiers: Diabetic foot ulcer location: midfoot Diabetes mellitus type: type 2 Laterality : right Non-pressure ulcer stage: unspecified non-pressure ulcer stage Qualified Code(s): E11.621 - Type 2 diabetes mellitus with foot ulcer Low back pain Qualifiers: Chronicity: chronic Back pain laterality: bilateral Sciatica presence: without sciatica Qualified Code(s): M54.5 - Low back pain Condition: Stable Disposition: HOME, SELF-CARE Additional Instructions: Return immediately for any new or worsening symptoms Followup with the [facility] for a recheck. Get your prescriptions that you were given at discharge filled and take as prescribed. Continue daily wound care, changing dressing daily. Forms: Elevated Blood Pressure Referrals: [facility] [Provider Group] - Follow up as needed Wound Care [Provider Group] - Follow up as needed
== END 2017-10-08 10:15 | disposition home or self-care (01) ==
LOC: ER 08:18
DX: E11.621 Type 2 diabetes mellitus with foot ulcer (principal); M54.5 Low back pain; E78.00 Pure hypercholesterolemia, unspecified; I10 Essential (primary) hypertension; J44.9 Chronic obstructive pulmonary disease, unspecified; E11.9 Type 2 diabetes mellitus without complications; Z87.891 Personal history of nicotine dependence
CPT/HCPCS: 94640; 99282; J7620

== ENCOUNTER 2017-10-15 09:06 | Emergency (ER) | payer MEDICAID ==
--- NOTE | 2017-10-15 10:44 | ER Document Report ---
ED General - General Chief Complaint: Medication Refill Stated Complaint: MEDICATION REFILL Time Seen by Provider: 10/15/17 09:33 Mode of Arrival: Ambulatory Information source: Patient Notes: 57-year-old homeless male history of diabetes with a diabetic wound that has been taking care of here multiple times presents with complaints of requesting supplies for his wound, patient notes that normally they use Silvadene and some kind of wash, he notes it is looking much better than in the past. He denies any fevers or chills denies any nausea vomiting or diarrhea. Patient was recently admitted for similar symptoms TRAVEL OUTSIDE OF THE [place] IN LAST 30 DAYS: No - HPI Onset: Just prior to arrival Onset/Duration: Sudden Quality of pain: Achy Severity: Mild Pain Level: 1 Associated symptoms: Other Exacerbated by: Movement Relieved by: Denies Similar symptoms previously: Yes Recently seen / treated by doctor: Yes - Related Data Allergies/Adverse Reactions: insulin regular [From Novolin 70/30] Allergy (Unknown, Verified 09/28/17 13:17) insulin isophane (NPH) [From Novolin 70/30] Allergy (Verified 09/28/17 13:17) metformin Allergy (Verified 09/28/17 13:17) Past Medical History - Social History Smoking Status: Current Every Day Smoker Cigarette use (# per day): Yes Chew tobacco use (# tins/day): No Smoking Education Provided: No Frequency of alcohol use: None Drug Abuse: None Family History: Reviewed & Not Pertinent Patient has suicidal ideation: No Patient has homicidal ideation: No - Past Medical History Cardiac Medical History: Reports: Hx Hypercholesterolemia, Hx Hypertension Pulmonary Medical History: Reports: Hx COPD Endocrine Medical History: Reports: Hx Diabetes Mellitus Type 1, Hx Diabetes Mellitus Type 2 Renal/ Medical History: Reports: Hx Renal Insufficiency. 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 bone Review of Systems - Review of Systems Notes: REVIEW OF SYSTEMS: CONSTITUTIONAL : Denies fever, chills, or sweats. Denies recent illness. EENT: Denies eye, ear, throat, or mouth pain or symptoms. Denies nasal or sinus congestion or discharge. Denies throat, tongue, or mouth swelling or difficulty swallowing. CARDIOVASCULAR: Denies chest pain. Denies palpitations or racing or irregular heart beat. Denies ankle edema. RESPIRATORY: Denies cough, cold, or chest congestion. Denies shortness of breath, difficulty breathing, or wheezing. GASTROINTESTINAL: Denies abdominal pain or distention. Denies nausea, vomiting , or diarrhea. Denies blood in vomitus, stools, or per rectum. Denies black, tarry stools. Denies constipation. GENITOURINARY: Denies difficulty urinating, painful urination, burning, frequency, blood in urine, or discharge. MUSCULOSKELETAL: Admits chronic back pain SKIN: Admits to diabetic well-healing wound on the right foot HEMATOLOGIC : Denies easy bruising or bleeding. LYMPHATIC: Denies swollen, enlarged glands. NEUROLOGICAL: Denies confusion or altered mental status. Denies passing out or loss of consciousness. Denies dizziness or lightheadedness. Denies headache. Denies weakness or paralysis or loss of use of either side. Denies problems with gait or speech. Denies sensory loss, numbness, or tingling. Denies seizures. PSYCHIATRIC: Denies anxiety or stress. Denies depression, suicidal ideation, or homicidal ideation. ALL OTHER SYSTEMS REVIEWED AND NEGATIVE. Dictation was performed using [employer] voice recognition software PHYSICAL EXAMINATION: GENERAL: Well-appearing, well-nourished and in no acute distress. HEAD: Atraumatic, normocephalic. EYES: Pupils equal round and reactive to light, extraocular movements intact, sclera anicteric, conjunctiva are normal. ENT: Nares patent, oropharynx clear without exudates. Moist mucous membranes. NECK: Normal range of motion, supple without lymphadenopathy LUNGS: Breath sounds clear to auscultation bilaterally and equal. No wheezes rales or rhonchi. HEART: Regular rate and rhythm without murmurs ABDOMEN: Soft, nontender, nondistended abdomen. No guarding, no rebound. No masses appreciated. Musculoskeletal: Normal range of motion, no pitting or edema. No cyanosis. NEUROLOGICAL: Cranial nerves grossly intact. Normal speech, normal gait. Normal sensory, motor exams PSYCH: Normal mood, normal affect. SKIN: Well granulated wound of the right foot lateral aspect previous amputation 5th digit Physical Exam - Vital signs Vitals: Temp Pulse Resp BP Pulse Ox 97.8 F 88 17 187/88 H 99 10/15/17 09:18 10/15/17 09:18 10/15/17 09:18 10/15/17 09:18 10/15/17 09:18 Course - Re-evaluation Re-evalutation: 10/15/17 10:42 Patient will be given follow-up wound care, supplies, he is requesting pain medication for his chronic back pain, Overall he looks well he is not septic has no other complaints that are life- threatening at this time After performing a Medical Screening Examination, I estimate there is LOW risk for OPEN FRACTURE, COMPARTMENT SYNDROME, TENDON RUPTURE, ACUTE NEUROVASCULAR INJURY, or RETAINED FOREIGN BODY, thus I consider the discharge disposition reasonable. Also, there is no evidence or peritonitis, sepsis, or toxicity. I have reevaluated this patient multiple times and no significant life threatening changes are noted. The patient and I have discussed the diagnosis and risks, and we agree with discharging home with close follow-up with the understanding that symptoms and presentations can change. We also discussed returning to the Emergency Department immediately if new or worsening symptoms occur. We have discussed the symptoms which are most concerning (e.g., changing or worsening pain, fever, numbness, weakness, cool or painful digits) that necessitate immediate return. - Vital Signs Vital signs: Temp Pulse Resp BP Pulse Ox 97.8 F 88 17 187/88 H 99 10/15/17 09:18 10/15/17 09:18 10/15/17 09:18 10/15/17 09:18 10/15/17 09:18 Discharge - Discharge Clinical Impression: Diabetic foot infection, Chronic pain in right foot Condition: Stable Disposition: HOME, SELF-CARE Instructions: Delayed Wound Closure ([facility]) Additional Instructions: Please follow-up with the wound care clinic for further evaluation of your wound Prescriptions: Oxycodone HCl/Acetaminophen [Percocet 5-325 mg Tablet] 1 - 2 tab PO Q4H PRN #15 tablet PRN Reason:
[2017-10-15] MEDS ORDERED: SILVER SULFADIAZINE 1% CREAM 400 GM TP ONE (10:47)
[2017-10-15 11:03] VITALS: BP 188/90
== END 2017-10-15 11:06 | disposition home or self-care (01) ==
LOC: ER 09:06
DX: E11.621 Type 2 diabetes mellitus with foot ulcer (principal); M79.671 Pain in right foot; M54.9 Dorsalgia, unspecified; G89.29 Other chronic pain; F17.210 Nicotine dependence, cigarettes, uncomplicated; I10 Essential (primary) hypertension
CPT/HCPCS: 99281; J3490

== ENCOUNTER 2017-10-31 15:06 | Emergency (ER) | payer MEDICAID ==
[2017-10-31] MEDS ORDERED: OXYCODONE-ACETAMINOPHEN 5-325 MG TABLET PO ONE (17:14)
--- NOTE | 2017-10-31 17:23 | ER Document Report ---
ED General Pain - General Chief Complaint: Pain All Over Stated Complaint: PAIN ALL OVER Time Seen by Provider: 10/31/17 16:18 Notes: Patient is here wanting pain medications for various pains throughout his body. He is complaining of pain in his back and legs that has been going on for a long time. Patient has had his fifth toe amputated from the right foot. He is an insulin-dependent diabetic. Has been in the hospital here numerous times since last April,. Has not been admitted for the past 2 months, however. Patient lives at the assisted. Is unable to work. Patient is not running any fever. Has not noted any significant drainage from either of his feet. He has neuropathy and has little or no feeling at all in either foot. TRAVEL OUTSIDE OF THE [place] IN LAST 30 DAYS: No - Related Data Allergies/Adverse Reactions: insulin regular [From Novolin 70/30] Allergy (Unknown, Verified 10/31/17 15:07) insulin isophane (NPH) [From Novolin 70/30] Allergy (Verified 10/31/17 15:07) metformin Allergy (Verified 10/31/17 15:07) Past Medical History - Social History Smoking Status: Unknown if Ever Smoked Chew tobacco use (# tins/day): No Frequency of alcohol use: None Drug Abuse: None Family History: Reviewed & Not Pertinent Patient has suicidal ideation: No Patient has homicidal ideation: No - Past Medical History Cardiac Medical History: Reports: Hx Hypercholesterolemia, Hx Hypertension Pulmonary Medical History: Reports: Hx COPD Endocrine Medical History: Reports: Hx Diabetes Mellitus Type 1, Hx Diabetes Mellitus Type 2 Renal/ Medical History: Reports: Hx Renal Insufficiency Psychiatric Medical History: Reports: Hx Anxiety, Hx Depression Past Surgical History: Reports: Hx Abdominal Surgery - umbilical hernia repair, Hx Orthopedic Surgery - fifth right toe amputated, Other - Umbilical hernia repair, amputation right 5th digit with 5t metatarsal bone Review of Systems - Review of Systems Notes: CONSTITUTIONAL : Denies fever. CARDIOVASCULAR: Denies chest pain. RESPIRATORY: Denies cough, chest congestion, or shortness of breath. GASTROINTESTINAL: Denies abdominal pain or nausea, vomiting, or diarrhea. GENITOURINARY: Denies difficulty or painful urinating, urinary frequency, blood in urine. Physical Exam - Vital signs Vitals: Temp Pulse Resp BP Pulse Ox 98.4 F 89 18 137/65 H 99 10/31/17 15:24 10/31/17 15:24 10/31/17 15:24 10/31/17 15:24 10/31/17 15:24 Interpretation: Normal - Notes Notes: PHYSICAL EXAMINATION: GENERAL: Well-appearing, no acute distress. Vital signs are all essentially normal. HEAD: Atraumatic, normocephalic. NECK: Normal range of motion, supple. LUNGS: Breath sounds clear and equal bilaterally. HEART: Regular rate and rhythm without murmurs heard. ABDOMEN: Soft, nontender. No guarding or rebound or masses felt. I examined the patient's right foot. Patient says his left foot is fine and is not having any problem. The right foot is missing the fifth toe and has fairly extensive thick dry tough external layer of skin over the lateral aspect of the foot. There is no definite drainage anywhere. I began to pick and remove a fairly significant amount of this almost eschar formation along the outer aspect of the right foot. There is no soft tissue swelling, no drainage, no erythema, no heat. Course - Re-evaluation Re-evalutation: 10/31/17 19:39 I debrided away a large amount of the debris and old dried up likely did skin along the lateral aspect of the right foot. I had to trim some of it with scissors. I went over our pain medication policy in the emergency department. Patient says he knows that but he does not have a primary care and cannot afford one. I actually feel sorry for the gentleman who has this severe medical condition and has no means or capability of taking care of it properly. I told him I will not give him any pain medications in the future but I am giving him a prescription for 25 Percocets at this time and told him to use them sparingly and wisely. - Vital Signs Vital signs: Temp Pulse Resp BP Pulse Ox 98.5 F 84 16 132/60 H 98 10/31/17 17:20 10/31/17 17:20 10/31/17 17:20 10/31/17 17:20 10/31/17 17:20 Discharge - Discharge Clinical Impression: Chronic pain, Homelessness, Peripheral neuropathy Condition: Stable Disposition: HOME, SELF-CARE Additional Instructions: Neuropathy Your symptoms are due to neuropathy. Neuropathy is nerve damage. There are many causes, including diabetes, immune disease, alcohol, blood vessel disease, and vitamin deficiency. The usual symptoms are pain and numbness. Neuropathy can occur anywhere, but it's most likely in the "longest" nerves. That's why the feet are most often affected. Sometimes the nerve damage can heal. But if the symptoms have lasted more than a few months, the damage is permanent. To avoid further damage, treat your underlying health problems carefully. If you have diabetes, keep the blood sugar as normal as possible. Avoid alcohol. Treat high blood pressure and high cholesterol. Treating chronic pain can be a problem. Obviously, you don't want to become addicted to pain medicine. Work closely with your doctor on pain management. Your options include antiinflammatory medicine, anti seizure medicine, antidepressants, and pain clinic management. Contact the doctor if there is a significant change. Diabetes You have an abnormally high blood sugar, suspicious for diabetes. Not all high blood sugar requires long-term treatment. High blood sugar can be due to medications, , or the stress of illness. (These cases are "borderline diabetes.") If the doctor feels your high blood sugar might get better with time, you may not require treatment now. You will be scheduled for further evaluation. It's very important that you follow through. Uncontrolled high blood sugar leads to early heart disease , strokes, nerve damage, eye damage, and kidney damage. All diabetics should follow a diet designed to control the blood sugar. Overweight diabetics should exercise regularly and lose weight. If this is not sufficient to control the blood sugar, pills or insulin shots are necessary. Younger people who develop diabetes almost always require insulin daily. Home testing of blood sugars or urine sugar is required. Diabetic teaching is available to help you figure insulin doses and monitor the blood sugar. Call the physician if there is faintness, excess sleepiness, or very rapid breathing. If hypoglycemia (LOW blood sugar) develops, symptoms are shakiness, weakness, sweating, and confusion. In this case, you should eat or drink something with sugar at once. Chronic Pain Control Stress, inactivity, and depression make pain more severe regardless of the cause of the pain. Stress and poor physical condition can cause pain such as headaches and backache. Relaxation: Rest in a quiet place with your eyes closed for 20 minutes twice daily. Concentrate on a pleasant image, or simply "feel" your breathing. Clear your mind. Stress management: Deal with your "stressors." Either take action, or eliminate the stressor from your life. Don't let things hang over you. Accept those things you can't change. Nutrition: Eat small, balanced meals -- don't skip, don't overeat. Meals should be high-carbohydrate, low-sugar, low-fat. Exercise: Exercise helps painful conditions and eases stress. Get 30 minutes of moderate exercise, five days a week. Do an activity that does not flare your pain. Precautions: Pain which continues to disrupt daily activities, or which changes in nature, requires a medical evaluation. Pain Clinic referral is available. Oral Narcotic Medication You have been given a prescription for pain control. This medication is a narcotic. It's best taken with food, as nausea can result if taken on an empty stomach. Don't operate machinery or drive within six hours of taking this medication. Do not combine this medicine with alcohol, or with any medication which can cause sedation (such as cold tablets or sleeping pills) unless you get permission from the physician. Narcotics tend to cause constipation. If possible, drink plenty of fluids and eat a diet high in fiber and fruits. We do not manage chronic pain in the Emergency Department. We will try to appropriately help you through an acute flare of your chronic painful condition , but for on-going chronic pain that does not improve, you will need to see your private doctor or crayon painter. We do not provide repeated medication management of chronic painful conditions. If you wish, we can provide the name of local pain management physicians. We will not be able to continue to provide you with pain medications for your chronic pain. Prescriptions: Oxycodone HCl/Acetaminophen [Percocet 5-325 mg Tablet] 1 - 2 tab PO Q4H PRN #25 tablet PRN Reason:
[2017-10-31 17:25] VITALS: BP 132/60
== END 2017-10-31 17:23 | disposition home or self-care (01) ==
LOC: ER 15:06
DX: G89.29 Other chronic pain (principal); M54.2 Cervicalgia; M79.606 Pain in leg, unspecified; E11.40 Type 2 diabetes mellitus with diabetic neuropathy, unspecified; Z79.4 Long term (current) use of insulin; I10 Essential (primary) hypertension; J44.9 Chronic obstructive pulmonary disease, unspecified; Z59.0 Homelessness; Z89.421 Acquired absence of other right toe(s)
CPT/HCPCS: 99283

== ENCOUNTER 2017-11-06 04:06 | Emergency (ER) | payer MEDICAID ==
[2017-11-06 04:24] VITALS: BP 165/79
--- NOTE | 2017-11-06 05:06 | ER Document Report ---
HPI - HPI Pain Level: 5 Notes: Patient is a 57-year-old male with a history of noncompliance, type 2 diabetes, chronic pain, homelessness who presents to the ED for the second time 6 days requesting stronger narcotic medications. Patient states that he has not had any acute change in his health overall, but does continue to have pain and has not been established with the PCM yet. Patient states that he is still eating and drinking without difficulty. He is urinating normally and having normal bowel movements. Patient was evaluated [address] Rees and was given 25 Percocet tablets and was told that he needed to use them wisely and sparingly and that he would not be getting any more narcotics from the emergency department. Patient states that he chewed through those quickly and it did not touch his pain. No other concerns or complaints at this time. Denies any headache, fever, neck pain, URI, sore throat, chest pain, palpitations, syncope, cough, shortness of breath, wheeze, dyspnea, abdominal pain, nausea/vomiting/diarrhea, urinary retention, dysuria, hematuria, loss of control of bowel or bladder, saddle anesthesia, muscle paralysis/weakness, or rash. - ROS Systems Reviewed and Negative: Yes All other systems reviewed and negative <MICHELET DUDLEY - Last Filed: 11/06/17 05:17> Past Medical History - Social History Smoking Status: Unknown if Ever Smoked Family History: Reviewed & Not Pertinent - Past Medical History Cardiac Medical History: Reports: Hx Hypercholesterolemia, Hx Hypertension Pulmonary Medical History: Reports: Hx COPD Endocrine Medical History: Reports: Hx Diabetes Mellitus Type 1, Hx Diabetes Mellitus Type 2 Renal/ Medical History: Reports: Hx Renal Insufficiency. 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 bone <MICHELET DUDLEY - Last Filed: 11/06/17 05:17> Vertical Provider Document - CONSTITUTIONAL Agree With Documented VS: Yes Notes: PHYSICAL EXAMINATION: GENERAL: Well-appearing, well-nourished and in no acute distress. LUNGS: Breath sounds clear to auscultation bilaterally and equal. No wheezes rales or rhonchi. HEART: Regular rate and rhythm without murmurs, rubs, gallops. ABDOMEN: Soft, nontender, nondistended abdomen. No guarding, no rebound. No masses appreciated. Normal bowel sounds present. No CVA tenderness bilaterally. No pulsatile mass Musculoskeletal: LE's b/l: FROM to passive/active. Strength 5+/5. Back: FROM to passive/active. Strength 5+/5. No vertebral point tenderness, stepoffs, or deformities. SLR negative b/l. No foot drop NEUROLOGICAL: Normal speech, ataxic gait. PSYCH: Normal mood, normal affect. - INFECTION CONTROL TRAVEL OUTSIDE OF THE [place] IN LAST 30 DAYS: No <MICHELET DUDLEY - Last Filed: 11/06/17 05:17> Course - Re-evaluation Re-evalutation: 11/06/17 05:16 Patient is an afebrile, well-hydrated, 57-year-old male who presents to the ED with chronic pain in search of narcotic pain medications. Vitals are acceptable. Patient has no significant tachycardia, tachypnea, or hypoxia. He is tolerating p.o. without difficulties. He is nontoxic-appearing. Upon entering the room patient immediately stated "why every time I come to the ED I only see you." Pt believes that I am [place] as well. I did advise patient that this is only the second time that I have actually seen him and my name is Michelet. Advised patient that I would not provide him with any narcotic medication and did offer him Lidoderm patches, Tylenol, Motrin, and/or Toradol. Patient states that none of that will work for his pain and he wants to see another provider. I did review this case with Dr. Mitchell who printed out his NCCSRS history and spoke with the patient. Patient will not be receiving any more narcotics in short per Dr. Mitchell. Recommend conservative measures otherwise for symptoms. Recheck with/establish with your PCM in the next week. Consider consult with pain management/orthopedic/physical therapy. Return to the ED with any worsening/concerning symptoms otherwise as reviewed discharge. Patient is in agreement, but not happy. - Vital Signs Vital signs: Temp Pulse Resp BP Pulse Ox 97.9 F 79 18 165/79 H 98 11/06/17 04:21 11/06/17 04:21 11/06/17 04:21 11/06/17 04:21 11/06/17 04:21 <MICHELET DUDLEY - Last Filed: 11/06/17 05:17> - Re-evaluation Re-evalutation: 11/06/17 05:22 Michelet Dudley, physician assistant project engineer, asked me to go see the Mr. Mcleod because is requesting to see the supervising physician. Patient is a 57-year-old male with chronic back pain who says he is having pain radiating from his low back down the back of his left leg. He says he has had MRIs of his back which shows that he has "nerve damage". Says he is able to walk but says has some pain with doing so. No actual weakness in his lower extremities. On exam patient points to area of pain. When pushing on his back he continues to talk and does not actually show much pain when pushing on his back. Patient then tells me it is actually a phantom pain that goes down his left leg. Patient does have a history of toe amputation and diabetic foot infections. I did look at both feet. Patient has a small diabetic wound on the lateral aspect of the right foot that appears to be healing without any surrounding inflammation or redness. Left foot does not have any wounds at this time. He does have good strength in both feet. Patient is extremely upset that Michelet is refusing to give him opiate medications. He says that he is going to report Michelet to the state board. I informed the patient that we actually are following suggested prescription guidelines by not refilling opiate medications for his chronic pain especially since she has received 6 different opiate prescriptions in the last 2 months from 6 different providers. I did look him up on the [place] controlled substance prescription database to find out the aforementioned information about his multiple prescriptions from multiple different providers. I informed him that he would need to follow up with his primary care doctor for continued pain management. I encouraged him return to the ER if he has fevers, weakness in his legs, or feels that he is worsening. Patient does not have any signs of cauda equina syndrome or any acutely emergent condition in regards to his leg pain. Dictation of this chart was performed using voice recognition software; therefore, there may be some unintended grammatical errors. - Vital Signs Vital signs: Temp Pulse Resp BP Pulse Ox 97.9 F 79 18 165/79 H 98 11/06/17 04:21 11/06/17 04:21 11/06/17 04:21 11/06/17 04:21 11/06/17 04:21 <DK MITCHELL - Last Filed: 11/06/17 05:30> Discharge <MICHELET DUDLEY - Last Filed: 11/06/17 05:17> <DK MITCHELL - Last Filed: 11/06/17 05:30> - Discharge Clinical Impression: Generalized pain, Chronic pain in right foot Chronic pain Qualifiers: Chronic pain type: other chronic pain Qualified Code(s): G89.29 - Other chronic pain Condition: Stable Disposition: HOME, SELF-CARE Instructions: Ice Packs ([facility]) Additional Instructions: Rest, Ice, Compression, Elevation Tylenol/ibuprofen as needed Light stretches daily Strength exercises as able Moist heat and massage may help F/u with your PCP in 3-5 days for a recheck Consider consult(s) with Orthopedics/physical therapy for ongoing/worsening symptoms Return to the ED with any worsening symptoms and/or development of fever, headache, chest pain, palpitations, syncope, shortness of breath, trouble breathing, abdominal pain, n/v/d, muscle weakness/paralysis, numbness/tingling, swelling, redness, or other worsening symptoms that are concerning to you. We do not manage chronic pain in the Emergency Department. We will try to appropriately help you through an acute flare of your chronic painful condition , but for on-going chronic pain that does not improve, you will need to see your private doctor or automatic paint sprayer operator. We do not provide repeated medication management of chronic painful conditions. If you wish, we can provide the name of local pain management physicians. We will not be able to continue to provide you with pain medications for your chronic pain. Prescriptions: Ibuprofen 600 mg PO QID PRN #30 tablet PRN Reason: Forms: Elevated Blood Pressure Referrals: [facility] [Provider Group] - Follow up as needed [facility] [Provider Group] - Follow up in 3-5 days
[2017-11-06] MEDS ORDERED: LIDOCAINE 5% (700 MG) TRANSDERMAL ADH..PATCH TP ONE (05:12)
[2017-11-06] MEDS ORDERED: KETOROLAC TROMETHAMINE INJ/PF 30 MG/1 ML SDV IM ONE (05:12)
== END 2017-11-06 05:49 | disposition home or self-care (01) ==
LOC: ER 04:06
DX: M79.1 Myalgia (principal); G89.29 Other chronic pain; M79.671 Pain in right foot; E11.9 Type 2 diabetes mellitus without complications; E78.00 Pure hypercholesterolemia, unspecified; I10 Essential (primary) hypertension; J44.9 Chronic obstructive pulmonary disease, unspecified; Z59.0 Homelessness
CPT/HCPCS: 99283; 96372; J1885; J3490

== ENCOUNTER 2017-11-11 05:29 | Emergency (ER) | payer MEDICAID ==
[2017-11-11 05:46] VITALS: BP 148/89
[2017-11-11] MEDS ORDERED: KETOROLAC TROMETHAMINE 60 MG/2 ML SDV IM PRN (06:47)
[2017-11-11] MEDS ORDERED: ACETAMINOPHEN SOLN 325 MG/10.15 ML UDCUP PO PRN (06:47)
--- NOTE | 2017-11-11 07:18 | ER Document Report ---
ED General Pain - General Chief Complaint: Pain All Over Stated Complaint: PAIN ALL OVER Time Seen by Provider: 11/11/17 06:41 Notes: 57-year-old male to the emergency department complaining of "pain all over". Patient states that he has chronic pain. Was hospitalized recently in 2018 for diabetic foot infection. States that his feet are not infected but he is having worsening back pain that radiates down both legs. No fever. No chills. No sweats. States that he "ran out of all of his medications for pain". States that "the word on the street as we do not take good care of people". Stating that "he needs some pain medication to get him through until he gets seen by specialist". Denies any problems with his eyes ears nose throat. Denies any chest pain, fever, shortness of breath. States that the pain is constant at all times. Located in the low back and radiates down his legs. States that he was told that "he has spinal stenosis". TRAVEL OUTSIDE OF THE [place] IN LAST 30 DAYS: No - HPI Quality of pain: Dull Severity: Moderate Context: Chronic problem - Related Data Allergies/Adverse Reactions: insulin regular [From Novolin 70/30] Allergy (Unknown, Verified 10/31/17 15:07) insulin isophane (NPH) [From Novolin 70/30] Allergy (Verified 10/31/17 15:07) metformin Allergy (Verified 10/31/17 15:07) Past Medical History - General Information source: Patient, [facility] Records - Social History Smoking Status: Former Smoker Chew tobacco use (# tins/day): No Frequency of alcohol use: None Drug Abuse: None Lives with: Homeless Family History: Reviewed & Not Pertinent Patient has suicidal ideation: No Patient has homicidal ideation: No - Past Medical History Cardiac Medical History: Reports: Hx Hypercholesterolemia, Hx Hypertension Pulmonary Medical History: Reports: Hx COPD Endocrine Medical History: Reports: Hx Diabetes Mellitus Type 1, Hx Diabetes Mellitus Type 2 Renal/ Medical History: Reports: Hx Renal Insufficiency. 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 bone Review of Systems - Review of Systems Constitutional: denies: Fever, Malaise, Weakness EENT: denies: Eye pain, Nose discharge, Mouth pain Cardiovascular: denies: Chest pain, Palpitations, Heart racing Respiratory: denies: Cough, Hurts to breathe, Hemoptysis, Short of breath Gastrointestinal: denies: Abdominal pain, Diarrhea, Nausea, Vomiting Genitourinary: denies: Burning, Dysuria, Discharge, Flank pain Musculoskeletal: See HPI, Back pain, Joint pain, Muscle pain, Muscle stiffness. denies: Neck pain, Deformity, Leg swelling, Ankle swelling Skin: denies: Dryness, Lesions, Rash Hematologic/Lymphatic: denies: Anemia, Blood clots, Easy bleeding Neurological/Psychological: denies: Confusion, Weakness, Numbness Physical Exam - Vital signs Vitals: Temp Pulse Resp BP Pulse Ox 97.6 F 74 17 148/89 H 97 11/11/17 05:43 11/11/17 05:43 11/11/17 05:43 11/11/17 05:43 11/11/17 05:43 Interpretation: Normal - General General appearance: Appears well, Alert - HEENT Head: Normocephalic, Atraumatic Eyes: Normal Pupils: PERRL - Respiratory Respiratory status: No respiratory distress Chest status: Nontender Breath sounds: Normal Chest palpation: Normal - Cardiovascular Rhythm: Regular Heart sounds: Normal auscultation Murmur: No - Abdominal Inspection: Normal Distension: No distension Bowel sounds: Normal Tenderness: Nontender Organomegaly: No organomegaly - Back Back: No: Deformity/step-off, CVA tenderness, Vertebra tenderness - Extremities General upper extremity: Normal inspection, Nontender, Normal color, Normal ROM , Normal temperature General lower extremity: Normal inspection, Nontender, Normal color, Normal ROM , Normal temperature, Other - Bilateral lower extremities are warm. No obvious edema. Negative straight leg bilaterally.. No: Edema, Jeanette's sign - Neurological Neuro grossly intact: Yes Cognition: Normal Orientation: AAOx4 [place] Coma Scale Eye Opening: Spontaneous [place] Coma Scale Verbal: Oriented [place] Coma Scale Motor: Obeys Commands G[place]mith Coma Scale Total: 15 Speech: Normal Motor strength normal: LUE, RUE, LLE, RLE Sensory: Normal - Psychological Associated symptoms: Normal affect, Normal mood - Skin Skin Temperature: Warm Skin Moisture: Dry Skin Color: Normal Course - Re-evaluation Re-evalutation: 11/11/17 07:52 Patient is unfortunately a chronic pain patient with limited resources. It appears that he has had multiple narcotic prescriptions given by multiple physicians. Patient has been advised recently that he is not to receive narcotics through the emergency department. This has been explained to the patient. I have no problem given him some anti-inflammatory medication. His blood sugar was checked his blood sugars a little high 303. Diet and insulin orders given. Toradol and Tylenol ordered but patient refused Tylenol and states that Toradol does not do anything. Will advise that he go back to his primary providers at the [facility]. Have nothing further to offer at this time. I do not find any acute emergencies. I do not feel the patient has acute cauda equina syndrome. His vital signs are within normal limits. He is afebrile. Blood sugar slightly elevated but states that he has not taken his insulin. - Vital Signs Vital signs: Temp Pulse Resp BP Pulse Ox 97.6 F 74 17 148/89 H 97 11/11/17 05:43 11/11/17 05:43 11/11/17 05:43 11/11/17 05:43 11/11/17 05:43 - Laboratory Laboratory results interpreted by me: 11/11/17 07:24 POC Glucose 303 H Discharge - Discharge Clinical Impression: Low back pain potentially associated with radiculopathy Condition: Good Disposition: HOME, SELF-CARE Instructions: Low Back Pain ([facility]), Diabetes ([facility]) Prescriptions: Duloxetine HCl [Ken 20 Mg Matthias.] 20 mg PO DAILY 30 Days #30 capsule. Gabapentin 300 mg PO TID 30 Days #90 capsule Insulin Glargine,Hum.rec.anlog [Lantus] 18 unit SQ DAILY 30 Days #1 vial Referrals: [facility] [Outside] - Follow up in 3-5 days
[2017-11-11] MEDS ORDERED: INSULIN LISPRO 100 UNIT/ML 3 ML VIAL SUBCUT ONE (07:48)
== END 2017-11-11 08:23 | disposition home or self-care (01) ==
LOC: ER 05:29
DX: M54.5 Low back pain (principal); G89.29 Other chronic pain; M79.604 Pain in right leg; M79.605 Pain in left leg; I10 Essential (primary) hypertension; Z87.891 Personal history of nicotine dependence; J44.9 Chronic obstructive pulmonary disease, unspecified; E11.9 Type 2 diabetes mellitus without complications
CPT/HCPCS: 99283; 96372; 82962; J1885

== ENCOUNTER 2017-11-17 04:41 | Emergency (ER) | payer MEDICAID ==
--- NOTE | 2017-11-17 07:07 | ER Document Report ---
ED General - General Chief Complaint: Back Pain Stated Complaint: BACK PAIN Time Seen by Provider: 11/17/17 07:05 Mode of Arrival: Ambulatory Information source: Patient TRAVEL OUTSIDE OF THE [place] IN LAST 30 DAYS: No - HPI Notes: 57-year-old male resents to the emergency room today for complaints of acute exacerbation of his chronic back pain, states he has pain all over his body. Denies any recent trauma or falling. Reports pain does radiate down his bilateral legs but this is been pre-existing prior to coming today. Has not followed up with his primary care provider for this issue. Patient was recently seen on November 11 for similar complaints, patient was told at this time that pain will be managed without the use of narcotics for his chronic pain. Denies fevers, chills, chest pain,palpitations, shortness of breath, dyspnea, nausea, vomiting, diarrhea, abdominal pain, hematuria,blurred vision, double vision, loss of vision, speech changes, LH, dizziness, syncope, headaches, wheezing, ST, URI, neck pain, weakness, bowel or bladder dysfunction, saddle anesthesia, numbness or tingling in bilateral upper equally, muscle paralysis, weakness in bilateral upper or lower extremities equally or rash. Denies IV drug use. - Related Data Allergies/Adverse Reactions: insulin regular [From Novolin 70/30] Allergy (Unknown, Verified 10/31/17 15:07) insulin isophane (NPH) [From Novolin 70/30] Allergy (Verified 10/31/17 15:07) metformin Allergy (Verified 10/31/17 15:07) Past Medical History - General Information source: Patient - Social History Smoking Status: Current Every Day Smoker Family History: Reviewed & Not Pertinent Patient has suicidal ideation: No Patient has homicidal ideation: No - Past Medical History Cardiac Medical History: Reports: Hx Hypercholesterolemia, Hx Hypertension Pulmonary Medical History: Reports: Hx COPD Endocrine Medical History: Reports: Hx Diabetes Mellitus Type 1, Hx Diabetes Mellitus Type 2 Renal/ Medical History: Reports: Hx Renal Insufficiency. 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 bone Review of Systems - Review of Systems Constitutional: No symptoms reported EENT: No symptoms reported Cardiovascular: No symptoms reported Respiratory: No symptoms reported Gastrointestinal: No symptoms reported Genitourinary: No symptoms reported Male Genitourinary: No symptoms reported Musculoskeletal: See HPI Skin: No symptoms reported Hematologic/Lymphatic: No symptoms reported Neurological/Psychological: No symptoms reported Physical Exam - Vital signs Vitals: Temp Pulse Resp BP Pulse Ox 98.1 F 81 16 104/60 100 11/17/17 04:46 11/17/17 04:46 11/17/17 04:46 11/17/17 04:46 11/17/17 04:46 - General General appearance: Appears well - Respiratory Respiratory status: No respiratory distress Chest status: Nontender Breath sounds: Normal Chest palpation: Normal - Cardiovascular Rhythm: Regular Heart sounds: Normal auscultation Murmur: No Normal capillary refill: Yes - Abdominal Inspection: Normal Distension: No distension Bowel sounds: Normal Tenderness: Nontender Organomegaly: No organomegaly - Back Back: Normal, Vertebra tenderness - Spinal tenderness to lumbar spine from L1- L3.. No: Deformity/step-off, CVA tenderness, Scars, Scoliosis, Wounds - Extremities General lower extremity: Normal inspection, Nontender, Normal strength Hip: Normal, Nontender Thigh: Normal, Nontender - Neurological Orientation: AAOx4 [place] Coma Scale Eye Opening: Spontaneous [place] Coma Scale Verbal: Oriented [place] Coma Scale Motor: Obeys Commands [place] Coma Scale Total: 15 Speech: Normal Motor strength normal: LUE, RUE, LLE, RLE Additional motor exam normals: Equal certified orthotist Sensory: Normal Knee - Reflex grade: 2 = Normal Ankle - Reflex grade: 2 = Normal - Psychological Associated symptoms: Agitated - Skin Skin Temperature: Warm Skin Moisture: Dry Skin Color: Normal Course - Re-evaluation Re-evalutation: 11/17/17 08:47 Afebrile, vitals stable male who is in acute exacerbation of his chronic back pain has been given multiple prescriptions in the emergency room setting for narcotics by different physicians at [facility] as well patient was advised for the second time that he will not receive narcotics to the ER for his chronic pain management. [place] narcotic control substance reporting system checked, patient was recently prescribed 25 tablets of oxycodone with acetaminophen 5 mg325 mg tablets on October 31. Patient has been given multiple referrals for primary care providers in the community, patient has not followed up with this. This provider did speak with social work who states that his Medicaid was recently approved, has been utilizing Bianca Kim who is a community resource literature teacher, has set up appointments for patient and patient has not shown up for his appointments with primary care providers. also discussed possible pain management resources with patient. Patient has not established with a primary care provider for pain management. Social work into speak with patient. Advised to follow-up with his primary care provider at the [facility]. There is no suspicion for acute cauda equinus syndrome. Patient given 60 mg of Toradol IM, prescribed lidocaine patch as well as a muscle relaxer. Do not drive, drink or operate heavy machinery while taking this medication. I have reevaluated this patient multiple times and no significant life threatening changes, no signs of toxicity, sepsis or peritonitis are noted. The patient and I have discussed the diagnosis and risks , and we agree with discharging home and close follow-up. We also discussed returning to the Emergency Department immediately if new or worsening symptoms occur with the understanding that symptoms and presentations can change. At this time will discharge with return precautions and follow-up recommendations. Verbal discharge instructions given a the bedside and opportunity for questions given. We have discussed the symptoms which are most concerning (e.g. , saddle anesthesia, urinary or bowel incontinence or retention, changing or worsening pain) that necessitate immediate return. Medication warnings reviewed. Patient is in agreement with this plan and has verbalized understanding of return precautions and the need for primary care follow-up in the next 24-72 hours. Patient verbalized understanding of plan of care and agree with plan of care. - Vital Signs Vital signs: Temp Pulse Resp BP Pulse Ox 98.5 F 81 16 175/82 H 100 11/17/17 08:58 11/17/17 08:58 11/17/17 04:46 11/17/17 08:58 11/17/17 08:58 Discharge - Discharge Clinical Impression: Acute exacerbation of chronic low back pain Condition: Good Disposition: HOME, SELF-CARE Instructions: Low Back Pain ([facility]), Pain Medication Injection ([facility]), Warm Packs ([facility]) Additional Instructions: LOW BACK PAIN: Three out of every four people will have an episode of disabling back pain during their lifetime. Most commonly the pain is due to straining of the muscles and ligaments in the low back. Usual treatment includes: (1) Rest on a firm surface. Avoid lying on your stomach. (2) Ice pack the painful area. After a few days, gentle heat may be used intermittently to relax the area, or ice packs can be continued. (3) Medication may be needed -- muscle relaxers and antiinflammatory medicines are commonly used. (4) As the back improves, exercises are prescribed to strengthen the back and abdominal muscles. Your doctor will advise you on the proper care for your back at each stage in your recovery. You may be better in a few days -- or healing may take several weeks. If new symptoms of a "herniated disc" (radiation of pain, numbness, or tingling down the back of the leg or weakness in the leg) occur, you should be re-examined. Further testing may be necessary. PAIN MEDICATION INJECTION: You have received an injection of a pain medication. You should experience significant pain relief within 45 minutes. If this injection was a narcotic -- it will impair your judgement, slow your reaction time and make you sleepy (as well as relieve your pain). Narcotics also can cause nausea. You should not drive, work with machinery, or perform any task requiring mental alertness until all effects of the medication are gone -- six to eight hours. Do not take any alcohol, or sedatives, and do not take any other medication without checking with your physician. MUSCLE RELAXERS: Muscle relaxing medications are usually prescribed for acute muscle spasm or injury to the neck and back. They are often combined with antiinflammatory pain medication for increased relief. You may stop the muscle relaxer when the pain and stiffness have improved. Start the medication again if spasms recur. Muscle relaxers may cause drowsiness, especially with the first dose. Do not operate machinery or drive while under the effects of the medication. Most muscle relaxers last up to 24 hours. Do not combine the medication with alcohol. ICE PACKS: Apply ice packs frequently against the painful area. Many different schedules are recommended, such as "20 minutes on, 20 minutes off" or "one hour ice, two hours rest." If you need to work, you may need to go longer between ice treatments. You should plan to have the area ice packed AT LEAST one fourth of the time. The ice should be applied over the wrap, tape, or splint, or over a layer of cloth -- not directly against the skin. Some ice bags have a built-in cloth and can be put directly on the skin. WARM PACKS: After approximately two days, apply gentle heat (such as a heating pad or hot water bottle) for about 20 to 30 minutes about every two hours -- at least four times daily. Warmth and elevation will help you make a more rapid recovery , and will ease the pain considerably. Do not use HOT heat, and never apply heat for longer than 30 minutes. The continuous heat can invisibly damage skin and muscles -- even when no burn is seen on the surface. Damaged muscles can make you MORE sore. FOLLOW-UP CARE: If you have been referred to a physician for follow-up care, call the physician s office for an appointment as you were instructed or within the next two days. If you experience worsening or a significant change in your symptoms, notify the physician immediately or return to the Emergency Department at any time for re-evaluation. You have been seen in the Emergency Department (ED) today for back pain. Your workup and exam have not shown any acute abnormalities and you are likely suffering from muscle strain or possible problems with your discs, but there is no treatment that will fix your symptoms at this time. Please use lidocaine patch as directed, advised to start on Lyrica for management of your chronic back pain. Will not prescribe you any NSAIDs due to her uncontrolled diabetes. Take [id number] Tylenol as needed. Warm compress 20 minutes on 20 minutes off for back stretching. To you should also purchase a local lidocaine cream such as "aspercreme with lidocaine" and use per bottle instructions to the affected area. Apply heat to the area as often as you are able. Continue to keep active and avoid prolonged periods of bed rest. Follow-up with primary care provider and video production specialist as referral is given for this Dr. Dr. Lamb and Dr. Adrien Bowie. Please follow-up within 1 week. Please follow up with your doctor as soon as possible regarding today's ED visit and your back pain. Return to the ED for worsening back pain, fever, weakness or numbness of either leg, or if you develop either (1) an inability to urinate or have bowel movements, or (2) loss of your ability to control your bathroom functions (if you start having "accidents"), or if you develop other new symptoms that concern you.concern you. Return immediately for any new or worsening symptoms. Follow up with primary care provider, call tomorrow to make followup appointment. Prescriptions: Cyclobenzaprine HCl [Flexeril 10 mg Tablet] 10 mg PO TIDP PRN #9 tab PRN Reason: Lidocaine/Menthol [Lidall 4%-1% Patch] 1 each TP TIDP PRN #20 adh..patch PRN Reason: Pregabalin [Lyrica] 50 mg PO Q8H #21 capsule Referrals: SUSIE LAMB MD [ACTIVE STAFF] - Follow up in 3-5 days ADRIEN VINCENT MD [ACTIVE STAFF] - Follow up in 1 week
[2017-11-17] MEDS ORDERED: KETOROLAC TROMETHAMINE 60 MG/2 ML SDV IM ONE (08:38)
[2017-11-17 09:15] VITALS: BP 175/82
== END 2017-11-17 09:15 | disposition home or self-care (01) ==
LOC: ER 04:41
DX: G89.29 Other chronic pain (principal); M54.5 Low back pain; I10 Essential (primary) hypertension; F17.200 Nicotine dependence, unspecified, uncomplicated; J44.9 Chronic obstructive pulmonary disease, unspecified; Z88.8 Allergy status to other drugs, medicaments and biological substances
CPT/HCPCS: 99283; 96372; J1885

== ENCOUNTER 2017-11-22 01:51 | Emergency (ER) | payer MEDICAID ==
[2017-11-22 02:08] VITALS: BP 177/88
[2017-11-22] MEDS ORDERED: LIDOCAINE 5% (700 MG) TRANSDERMAL ADH..PATCH TP ONE (02:21)
[2017-11-22] MEDS ORDERED: KETOROLAC TROMETHAMINE INJ/PF 30 MG/1 ML SDV IM ONE (02:21)
[2017-11-22] MEDS ORDERED: INSULIN REG, HUMAN 100 UNIT/ML 3 ML VIAL (PYX) SUBCUT ONE (02:21)
--- NOTE | 2017-11-22 02:29 | ER Document Report ---
HPI - HPI Notes: Patient is a 57-year-old male with a history of uncontrolled diabetes, chronic pain who presents to the ED complaining of continued chronic pain. Patient states that he has been seen by a specialist and his primary care doctor and had an MRI performed. His next appointment is not until the end of the month. Patient is very well-known to this emergency department. Patient is requesting a narcotic medication. Patient states that he has not had any acute changes in this pain and it is the same as it has always been. He has not had any injuries. He has been eating and drinking without any difficulties. He is urinating normally and having normal bowel movements. Patient states that he has aching in his knees, legs, and lower back. Denies any headache, fever, URI , sore throat, chest pain, palpitations, syncope, cough, shortness of breath, wheeze, dyspnea, abdominal pain, nausea/vomiting/diarrhea, urinary retention, dysuria, hematuria, loss of control of bowel or bladder, saddle anesthesia, muscle paralysis/weakness, or rash. Pt states he did not take his insulin today as he is running out. - ROS Systems Reviewed and Negative: Yes All other systems reviewed and negative - REPRODUCTIVE Reproductive: DENIES: : Past Medical History - Social History Smoking Status: Unknown if Ever Smoked Family History: Reviewed & Not Pertinent - Past Medical History Cardiac Medical History: Reports: Hx Hypercholesterolemia, Hx Hypertension Pulmonary Medical History: Reports: Hx COPD Endocrine Medical History: Reports: Hx Diabetes Mellitus Type 1, Hx Diabetes Mellitus Type 2 Renal/ Medical History: Reports: Hx Renal Insufficiency. 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 LUNGS: Breath sounds clear to auscultation bilaterally and equal. No wheezes rales or rhonchi. HEART: Regular rate and rhythm without murmurs, rubs, gallops. ABDOMEN: Soft, nontender, nondistended abdomen. No guarding, no rebound. No masses appreciated. Normal bowel sounds present. No CVA tenderness bilaterally. No pulsatile mass Musculoskeletal: LE's b/l: FROM to passive/active. Strength 5+/5. No deficits noted. No bony tenderness of extremities. Back: FROM to passive/active. Strength 5+/5. No vertebral point tenderness, stepoffs, or deformities. No other bony tenderness, erythema, swelling, or ecchymosis. SLR negative b/l. + mild tenderness to the L-paraspinal mm b/l. Mild spasming. No SI jt tenderness. No foot drop Extremities: No cyanosis, clubbing, or edema b/l. Peripheral pulses 2+. Capillary refill less than 2 seconds. NEUROLOGICAL: Normal speech, ataxic gait. Normal sensory, motor exams. Reflexes 2+ b/l. PSYCH: Normal mood, normal affect. SKIN: Warm, Dry, normal turgor, no rashes or lesions noted. - INFECTION CONTROL TRAVEL OUTSIDE OF THE [place] IN LAST 30 DAYS: No Course - Re-evaluation Re-evalutation: 11/22/17 02:25 Patient is an afebrile, well-hydrated, 57-year-old male who presents to the ED with chronic low back and leg pains, suspect secondary to his arthritis. Vitals are acceptable. PE is otherwise unremarkable for any focal neurological deficits, neurovascular compromise, obvious tendon/ligament rupture, obvious fracture/dislocation, septic joint. Patient has no significant tachycardia, tachypnea, or hypoxia. He is tolerating p.o. without any difficulties. Patient 's Accu-Chek was 356. 10 units of insulin was ordered. Patient also was given Toradol, heat packs, and a Lidoderm patch. Reviewed with patient on our narcotics policy. I will not be writing him for any narcotics. I will write him for a Rollator. Conservative measures otherwise for symptoms. Recheck with your PCM in 3-5 days. Schedule follow-up with your specialist. Return to the ED with any worsening/concerning symptoms otherwise as reviewed discharge. Patient is in agreement. - Vital Signs Vital signs: Temp Pulse Resp BP Pulse Ox 98.1 F 78 16 177/88 H 98 11/22/17 02:07 11/22/17 02:07 11/22/17 02:07 11/22/17 02:07 11/22/17 02:07 - Laboratory Laboratory results interpreted by me: 11/22/17 02:01 POC Glucose 356 H Discharge - Discharge Clinical Impression: Chronic low back pain Qualifiers: Back pain laterality: bilateral Sciatica presence: without sciatica Qualified Code(s): M54.5 - Low back pain; G89.29 - Other chronic pain; G89.29 - Other chronic pain Condition: Stable Disposition: HOME, SELF-CARE Instructions: Stretching Exercises for the Back ([facility]), Low Back Pain ([facility]), Muscle Relaxers ([facility]) Additional Instructions: Rest, Ice, Compression, Elevation Tylenol/ibuprofen as needed Light stretches daily Strength exercises as able Moist heat and massage may help F/u with your PCP in 3-5 days for a recheck Consider consult(s) with Orthopedics/physical therapy for ongoing/worsening symptoms Return to the ED with any worsening symptoms and/or development of fever, headache, chest pain, palpitations, syncope, shortness of breath, trouble breathing, abdominal pain, n/v/d, blood in stool/urine, loss of control of bowel /bladder, urinary retention, muscle weakness/paralysis, saddle anesthesia, numbness/tingling, or other worsening symptoms that are concerning to you. Prescriptions: Insulin Glargine,Hum.rec.anlog [Lantus Insulin Inj 300 Unit/3 ml Pen] 18 unit SUBCUT QHS #10 ml Cyclobenzaprine HCl [Flexeril 10 mg Tablet] 10 mg PO TIDP PRN #15 tab PRN Reason: Forms: Elevated Blood Pressure Referrals: [facility] [Provider Group] - Follow up as needed [facility] [Provider Group] - Follow up in 3-5 days
[2017-11-22] MEDS ORDERED: CYCLOBENZAPRINE HCL 10 MG TABLET PO ONE (02:30)
== END 2017-11-22 04:30 | disposition home or self-care (01) ==
LOC: ER 01:51
DX: G89.29 Other chronic pain (principal); M54.5 Low back pain; E78.00 Pure hypercholesterolemia, unspecified; I10 Essential (primary) hypertension; Z79.4 Long term (current) use of insulin
CPT/HCPCS: 99283; 96372; 82962; J3490 ×2; J1885; J1815

== ENCOUNTER 2017-12-08 06:50 | Emergency (ER) | payer MEDICAID, OTHER ==
[2017-12-08] MEDS ORDERED: NORMAL SALINE 1000 ML 1,000 ML IV ONE (09:06)
[2017-12-08] MEDS ORDERED: LISINOPRIL 10 MG TABLET PO ONE (09:09)
--- NOTE | 2017-12-08 09:11 | ER Document Report ---
ED General - General Mode of Arrival: Medic Information source: Patient TRAVEL OUTSIDE OF THE [place] IN LAST 30 DAYS: No - HPI Onset: Other - 1 month Onset/Duration: Worse Quality of pain: Sharp Pain Level: 5 Associated symptoms: Other - low back pain. denies: Nonproductive cough, Productive cough, Fever, Nausea, Vomiting Exacerbated by: Movement Relieved by: Denies Similar symptoms previously: Yes Recently seen / treated by doctor: No <ESTEE MARTINEZ - Last Filed: 12/08/17 19:30> <MICHELET GERMAIN - Last Filed: 12/09/17 03:29> - General Chief Complaint: Back Pain Stated Complaint: UNABLE TO WALK Time Seen by Provider: 12/08/17 08:51 Notes: Patient states that he has been homeless for the past 11 days as the homeless [facility] kicked him out. Patient states that because he has been out in the heat that his insulin has likely gone bad and he was advised by EMS not to take his insulin. Patient complains of an elevated blood sugar level. Patient also complains of difficulty walking for the past month that has worsened over the past 2 weeks. Patient states that he has been laying in the park and had a friend has been bringing him food and water and that he just rolls over to void. Patient denies any fever or injury. (ESTEE MARTINEZ) - Related Data Allergies/Adverse Reactions: insulin regular [From Novolin 70/30] Allergy (Unknown, Verified 10/31/17 15:07) insulin isophane (NPH) [From Novolin 70/30] Allergy (Verified 10/31/17 15:07) metformin Allergy (Verified 10/31/17 15:07) Past Medical History - General Information source: Patient - Social History Smoking Status: Current Every Day Smoker Frequency of alcohol use: None Drug Abuse: None Occupation: none Lives with: Homeless Family History: Reviewed & Not Pertinent Patient has suicidal ideation: No Patient has homicidal ideation: No - Past Medical History Cardiac Medical History: Reports: Hx Hypercholesterolemia, Hx Hypertension Pulmonary Medical History: Reports: Hx COPD Endocrine Medical History: Reports: Hx Diabetes Mellitus Type 1 Renal/ Medical History: Reports: Hx Renal Insufficiency. 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 bone <SETEE MARTINEZ - Last Filed: 12/08/17 19:30> Review of Systems - Review of Systems Constitutional: No symptoms reported. denies: Fever, Recent illness EENT: No symptoms reported Cardiovascular: No symptoms reported. denies: Chest pain Respiratory: No symptoms reported. denies: Cough Gastrointestinal: No symptoms reported. denies: Nausea, Vomiting Genitourinary: Incontinence - 1 episode when he was attempting to have a bowel movement. denies: Dysuria Male Genitourinary: No symptoms reported Musculoskeletal: Back pain. denies: Muscle pain Skin: No symptoms reported Hematologic/Lymphatic: No symptoms reported Neurological/Psychological: No symptoms reported. denies: Lost consciousness, Headaches <ESTEE MARTINEZ - Last Filed: 12/08/17 19:30> Physical Exam - General General appearance: Appears well, Alert In distress: Mild - HEENT Head: Normocephalic, Atraumatic Eyes: Normal Conjunctiva: Normal Nasal: Normal Mouth/Lips: Normal Mucous membranes: Dry Pharynx: Normal Neck: Normal - Respiratory Respiratory status: No respiratory distress Chest status: Nontender Breath sounds: Normal. No: Rales, Rhonchi, Stridor, Wheezing Chest palpation: Normal - Cardiovascular Rhythm: Regular Heart sounds: S1 appreciated, S2 appreciated Murmur: No - Abdominal Inspection: Normal Distension: No distension Bowel sounds: Normal Tenderness: Nontender - Back Back: Tender - Right lower lumbar tenderness, no midline tenderness, step-off or deformity. No: Deformity/step-off, CVA tenderness - Extremities General upper extremity: Normal inspection, Normal strength General lower extremity: Normal inspection. No: Normal strength - Decreased strength to lower extremities bilaterally - Neurological Neuro grossly intact: Yes Cognition: Normal [place] Coma Scale Eye Opening: Spontaneous [place] Coma Scale Verbal: Oriented [place] Coma Scale Motor: Obeys Commands [place] Coma Scale Total: 15 Knee - Reflex grade: 1 = Hypoactive Ankle - Reflex grade: 2 = Normal - Psychological Associated symptoms: Normal affect, Normal mood - Skin Skin Temperature: Warm Skin Moisture: Dry Skin Color: Normal <ESTEE MARTINEZ - Last Filed: 12/08/17 19:30> - Vital signs Vitals: Temp Pulse Resp BP Pulse Ox 97.9 F 89 16 169/87 H 98 12/08/17 07:29 12/08/17 07:29 12/08/17 07:29 12/08/17 07:29 12/08/17 07:29 Course - Laboratory Result Diagrams: 12/08/17 10:11 12/08/17 10:11 - Diagnostic Test Radiology reviewed: Reports reviewed <MICHELLEIVANTHOMAS - Last Filed: 12/08/17 19:30> - Laboratory Result Diagrams: 12/08/17 10:11 12/08/17 10:11 <MICHELET GERMAIN - Last Filed: 12/09/17 03:29> - Re-evaluation Re-evalutation: 12/08/17 13:07 Patient's vital signs stable at this time. Patient complains of continued low back pain. Patient states he has difficulty ambulating because of his pain symptoms. Patient states that he is only been able to ambulate a few feet over the past several months but states his pain is increased over the past 2 weeks and so he has not walked in the past 2 weeks. 12/08/17 13:[address] Shell who states that patient has findings worrisome for discitis and vertebral body osteomyelitis at the L3-L4 level with L4-L5 central canal stenosis. Recommends CT-guided disc aspiration but requests coagulation studies be performed first to help guide antibiotic treatment. 12/08/17 15:[address] with nausea at this time. Medication ordered for vomiting. Antibiotics ordered to be initiated after patient returns from having aspiration performed. 12/08/17 17:[address] Merino at [facility], requests consultation with neuro spine specialty. 12/08/17 18:26 Patient blood pressure trending upward, most recent blood pressure 230/114. Review of patient's previous ER visits does demonstrate a previous history of cocaine use. Consulted with Dr. Bro who recommends giving patient Ativan 1 mg IV. Patient had just received hydralazine 10 mg p.o. 12/08/17 18:[address] Landa at by did not he was on for neuro surgery who does agree to consult with patient. Transfer center states that patient will be placed on the list awaiting an available bed, admitted to the services of Dr. Merino. 12/08/17 19:[address] Matthews at [facility] who agrees to accept patient for transfer. They do not have any available beds at this time the patient will be placed on the list. Report and handoff given to Michelet OHARA (ESTEE MARTINEZ) 12/09/17 03:28 Transport arrived to [facility] patient. Vitals acceptable. Pt has no new concerns or complaints. Glucose elevated so 15 units insulin ordered. Pt stable for transport to [facility]. (MICHELET GERMAIN) - Vital Signs Vital signs: Temp Pulse Resp BP Pulse Ox 97.9 F 89 11 L 131/70 H 100 12/08/17 19:06 12/08/17 07:29 12/09/17 03:01 12/09/17 03:01 12/09/17 03:01 - Laboratory Laboratory results interpreted by me: 12/08/17 12/08/17 12/08/17 08:17 09:48 10:11 RDW 14.9 H Carbon Dioxide BUN Glucose POC Glucose 438 H* ALT Alkaline Phosphatase Urine Protein 100 H Urine Glucose (UA) >=500 H Urine Ketones TRACE H Urine Blood SMALL H 12/08/17 12/08/17 12/09/17 10:11 17:45 00:09 RDW Carbon Dioxide 21 L BUN 23 H Glucose 312 H POC Glucose 356 H 452 H* ALT 14 L Alkaline Phosphatase 157 H Urine Protein Urine Glucose (UA) Urine Ketones Urine Blood Labs- Entire Visit 12/08/17 12/08/17 12/08/17 08:17 09:48 10:11 WBC 9.4 RBC 5.06 Hgb 14.2 Hct 42.8 MCV 85 MCH 28.1 MCHC 33.2 RDW 14.9 H Plt Count 268 Seg Neutrophils % 70.7 Lymphocytes % 19.5 Monocytes % 8.3 Eosinophils % 1.0 Basophils % 0.5 Absolute Neutrophils 6.6 Absolute Lymphocytes 1.8 Absolute Monocytes 0.8 Absolute Eosinophils 0.1 Absolute Basophils 0.1 PT INR APTT VBG pH VBG pCO2 VBG HCO3 VBG Base Excess Sodium Potassium Chloride Carbon Dioxide Anion Gap BUN Creatinine Est GFR ( Amer) Est GFR (Non-Af Amer) Glucose POC Glucose 438 H* Lactic Acid Calcium Total Bilirubin Direct Bilirubin Neonat Total Bilirubin Neonat Direct Bilirubin Neonat Indirect Bili AST ALT Alkaline Phosphatase Creatine Kinase Total Protein Albumin Urine Color YELLOW Urine Appearance CLEAR Urine pH 5.0 Ur Specific [place] 1.024 Urine Protein 100 H Urine Glucose (UA) >=500 H Urine Ketones TRACE H Urine Blood SMALL H Urine Nitrite NEGATIVE Urine Bilirubin NEGATIVE Urine Urobilinogen NEGATIVE Ur Leukocyte Esterase NEGATIVE Urine WBC (Auto) 4 Urine RBC (Auto) 6 Squamous Epi Cells Auto 1 Granular Casts (Auto) 3 Urine Mucus (Auto) RARE Urine Ascorbic Acid NEGATIVE 12/08/17 12/08/17 12/08/17 10:11 11:04 14:12 WBC RBC Hgb Hct MCV MCH MCHC RDW Plt Count Seg Neutrophils % Lymphocytes % Monocytes % Eosinophils % Basophils % Absolute Neutrophils Absolute Lymphocytes Absolute Monocytes Absolute Eosinophils Absolute Basophils PT 13.2 INR 0.96 APTT 29.1 VBG pH 7.34 VBG pCO2 40.8 VBG HCO3 21.6 VBG Base Excess -3.9 Sodium 137.6 Potassium 4.4 Chloride 104 Carbon Dioxide 21 L Anion Gap 13 BUN 23 H Creatinine 1.13 Est GFR ( Amer) > 60 Est GFR (Non-Af Amer) > 60 Glucose 312 H POC Glucose Lactic Acid Calcium 10.0 Total Bilirubin 0.6 Direct Bilirubin 0.4 Neonat Total Bilirubin Not Reportable Neonat Direct Bilirubin Not Reportable Neonat Indirect Bili Not Reportable AST 26 ALT 14 L Alkaline Phosphatase 157 H Creatine Kinase 81 Total Protein 8.1 Albumin 4.0 Urine Color Urine Appearance Urine pH Ur Specific [place] Urine Protein Urine Glucose (UA) Urine Ketones Urine Blood Urine Nitrite Urine Bilirubin Urine Urobilinogen Ur Leukocyte Esterase Urine WBC (Auto) Urine RBC (Auto) Squamous Epi Cells Auto Granular Casts (Auto) Urine Mucus (Auto) Urine Ascorbic Acid 12/08/17 12/08/17 17:45 18:53 WBC RBC Hgb Hct MCV MCH MCHC RDW Plt Count Seg Neutrophils % Lymphocytes % Monocytes % Eosinophils % Basophils % Absolute Neutrophils Absolute Lymphocytes Absolute Monocytes Absolute Eosinophils Absolute Basophils PT INR APTT VBG pH VBG pCO2 VBG HCO3 VBG Base Excess Sodium Potassium Chloride Carbon Dioxide Anion Gap BUN Creatinine Est GFR ( Amer) Est GFR (Non-Af Amer) Glucose POC Glucose 356 H Lactic Acid 1.6 Calcium Total Bilirubin Direct Bilirubin Neonat Total Bilirubin Neonat Direct Bilirubin Neonat Indirect Bili AST ALT Alkaline Phosphatase Creatine Kinase Total Protein Albumin Urine Color Urine Appearance Urine pH Ur Specific [place] Urine Protein Urine Glucose (UA) Urine Ketones Urine Blood Urine Nitrite Urine Bilirubin Urine Urobilinogen Ur Leukocyte Esterase Urine WBC (Auto) Urine RBC (Auto) Squamous Epi Cells Auto Granular Casts (Auto) Urine Mucus (Auto) Urine Ascorbic Acid (ESTEE MARTINEZ) Discharge <ESTEE MARTINEZ - Last Filed: 12/08/17 19:30> <MICHELET GERMAIN - Last Filed: 12/09/17 03:29> - Discharge Clinical Impression: Inability to walk, Osteomyelitis of lumbar spine Low back pain Qualifiers: Chronicity: chronic Back pain laterality: right Sciatica presence: unspecified whether sciatica present Qualified Code(s): M54.5 - Low back pain Discitis Qualifiers: Spinal region: unspecified Qualified Code(s): M46.40 - Discitis, unspecified, site unspecified Condition: Stable Disposition: [facility] Referrals: MUKESH HOLDEN DO [Primary Care Provider] - Follow up as needed
[2017-12-08 10:15] LABS: APPEARANCE,URINE CLEAR; BILIRUBIN,URINE NEGATIVE (NEGATIVE); COLOR,URINE YELLOW; GLUCOSE, URINE >=500 mg/dL (NEGATIVE); KETONES,URINE TRACE mg/dL (NEGATIVE); LEUKOCYTE ESTERASE,URINE NEGATIVE (NEGATIVE); NITRITE,URINE NEGATIVE (NEGATIVE); PROTEIN,URINE 100 mg/dL (NEGATIVE); URINE SPECIFIC GRAVITY 1.024; UROBILINOGEN,URINE NEGATIVE mg/dL (<2.0)
[2017-12-08 10:31] LABS: ABSOLUTE BASOPHILS # (AUTO) 0.1 10^3/uL (0.0-0.2); ABSOLUTE EOSINOPHILS # (AUTO) 0.1 10^3/uL (0.0-0.6); ABSOLUTE LYMPHOCYTES (AUTO) 1.8 10^3/uL (0.5-4.7); ABSOLUTE MONOCYTES (AUTO) 0.8 10^3/uL (0.1-1.4); ABSOLUTE NEUT (AUTO) 6.6 10^3/uL (1.7-8.2); BASOPHILS % (AUTO) 0.5 % (0-2); HEMATOCRIT 42.8 % (37.9-51.0); HEMOGLOBIN 14.2 g/dL (13.5-17.0); LYMPHOCYTES % (AUTO) 19.5 % (13-45); MEAN CORPUSCULAR HEMOGLOBIN 28.1 pg (27.0-33.4); MEAN CORPUSCULAR HGB CONC 33.2 g/dL (32.0-36.0); MEAN CORPUSCULAR VOLUME 85 fl (80-97); MONOCYTES % (AUTO) 8.3 % (3-13); PLATELET COUNT 268 10^3/uL (150-450); RED BLOOD COUNT 5.06 10^6/uL (4.35-5.55); RED CELL DISTRIBUTION WIDTH 14.9 % (11.5-14.0); SEGMENTED NEUTROPHILS % (AUTO) 70.7 % (42-78); TOTAL CELLS COUNTED % (AUTO) 100 %; WHITE BLOOD COUNT 9.4 10^3/uL (4.0-10.5)
[2017-12-08 10:41] LABS: ALANINE AMINOTRANSFERASE 14 U/L (21-72); ALKALINE PHOSPHATASE 157 U/L (38-126); ANION GAP 13 (5-19); ASPARTATE AMINO TRANSFERASE 26 U/L (17-59); BILIRUBIN,DIRECT 0.4 mg/dL (0.0-0.4); BILIRUBIN,TOTAL 0.6 mg/dL (0.2-1.3); BLOOD UREA NITROGEN 23 mg/dL (7-20); CARBON DIOXIDE 21 mmol/L (22-30); CHLORIDE 104 mmol/L (98-107); CREATINE KINASE 81 U/L (55-170); GLUCOSE 312 mg/dL (75-110); POTASSIUM 4.4 mmol/L (3.6-5.0); SODIUM 137.6 mmol/L (137-145); TOTAL PROTEIN 8.1 g/dL (6.3-8.2)
[2017-12-08] MEDS ORDERED: HYDROMORPHONE HCL INJ/PF 2 MG/ML AMPULE IV ONE ×2 (10:49→13:23)
[2017-12-08] MEDS ORDERED: AMLODIPINE BESYLATE 10 MG TABLET PO ONE (10:50)
[2017-12-08 11:11] LABS: VENOUS BLOOD BASE EXCESS -3.9 mmol/L; VENOUS BLOOD HCO3 21.6 mmol/L (20-32); VENOUS BLOOD PCO2 40.8 mmHg (35-63); VENOUS BLOOD PH 7.34 (7.30-7.42)
[2017-12-08] MEDS ORDERED: NORMAL SALINE 1000 ML 1,000 ML IV PRN (12:45)
--- NOTE | 2017-12-08 13:41 | RADIOLOGY REPORT (SQ) ---
EXAM DESCRIPTION: MRI LUMBAR SPINE WITHOUT COMPLETED DATE/TIME: 12/08/2017 12:09 pm REASON FOR STUDY: back pain, inability to walk, incontinent of urine COMPARISON: MRI lumbar spine 10/01/2017 TECHNIQUE: Sagittal and Axial imaging includes T1, T2, STIR and gradient echo sequences. Coronal T2/ HASTE imaging. LIMITATIONS: None. FINDINGS: VISUALIZED UPPER ABDOMEN: Massive distention of the urinary bladder SEGMENTATION: No transitional anatomy. The lowest well-developed disc space is labeled L5-S1. ALIGNMENT: Anatomic. VERTEBRAE and BONE MARROW: BARE is abnormal disc space fluid at L3-4, with erosion of the ADJACENT ve rtebral body endplates, and extensive edema in the inferior half of L3 and upper half of the L4 verte bral body. PARASPINAL inflammatory change with edema in the medial aspect of the psoas muscles is se en at this level. findings are worrisome for discitis/osteomyelitis at L3-4. THIS was discussed wit makayla Pulido in the emergency room. DISC SIGNAL: Abnormal intervertebral disc space fluid at L3-4 with vertebral body endplate erosions w orrisome for discitis with adjacent osteomyelitis POSTERIOR ELEMENTS: Generally intact. No pars defect evident. HARDWARE: None in the spine. CORD AND CONUS: Normal in size and signal intensity. Conus at the mid L1 level. SOFT TISSUES: No aortic aneurysm seen. No bulky retroperitoneal adenopathy or mass. No paraspinal mas s or fluid. T11-12: Mild bilateral facet hypertrophy. No central or foraminal stenosis. T12-L1: Mild bilateral facet hypertrophy. No central or foraminal stenosis. L1-L2: Mild bilateral facet hypertrophy. No central or foraminal stenosis. L2-L3: Mild bilateral facet hypertrophy. No central or foraminal stenosis. L3-L4: L3-4 osteomyelitis and discitis with phlegmon in the paraspinal soft tissues along the right a nd left psoas muscle. Abnormal fluid in the intervertebral disc space with indistinct vertebral body endplates. There is broad diffuse posterior disc bulge and bony spurring and bulky bilateral facet hypertrophy. This causes effacement of CSF around the lumbar nerve roots with moderate central canal stenosis. This is similar compared to MRI lumbar spine 10/01/2017. Moderate bilateral foraminal park rowing is present without definite exiting L3 nerve root impingement L4-L5: Severe central canal stenosis, unchanged from 10/01/2017. A central disc herniation with infer ior migration of the extruded fragment, bulky bilateral facet and ligament hypertrophy cause high-gra de central canal stenosis. There is asymmetric flattening of the thecal sac right greater than left along the lateral recess containing the proximal right L5 nerve root. Elsewhere at L4-5 there is moderate bilateral inferior foraminal narrowing without exiting L4 nerve r oot impingement. L5-S1: Mild posterior disc bulging, small central disc protrusion, bulky bilateral facet hypertrophy. Mild central stenosis, moderate bilateral foraminal narrowing. These findings are similar compared to 10/01/2017. SACRUM: Visualized upper sacrum intact. OTHER: No other significant findings. IMPRESSION: Discitis and vertebral body endplate osteomyelitis at L3-4. Moderate central canal and moderate foraminal narrowing at L3-4, high-grade central canal stenosis at L4-5, mild central canal stenosis at L5-S1 all stable compared to prior MR exam 10/01/2017. TECHNICAL DOCUMENTATION: JOB ID: [id number] [employer]- All Rights Reserved Reading location - IP/workstation name: [email or web address]
[2017-12-08 14:27] LABS: INTERNATIONAL RATION (INR) 0.96; PROTHROMBIN TIME 13.2 SEC (11.4-15.4)
[2017-12-08 14:28] LABS: PARTIAL THROMBOPLASTIN TIME 29.1 SEC (23.5-35.8)
[2017-12-08] MEDS ORDERED: MIDAZOLAM 2 MG/2 ML INJ ONE (14:46)
[2017-12-08] MEDS ORDERED: LIDOCAINE 1% INJ-PF (10 MG/ML) 30 ML SDV ONE (14:46)
[2017-12-08] MEDS ORDERED: FENTANYL CITRATE INJ/PF 100 MCG/2 ML AMPUL ONE ×2 (14:46→15:30)
[2017-12-08] MEDS ORDERED: PROCHLORPERAZINE EDISYLATE INJ 10 MG/2 ML VIAL IV ONE (15:33)
[2017-12-08] MEDS ORDERED: VANCOMYCIN HCL INJ 1000 MG VIAL IV ONE (15:37)
[2017-12-08] MEDS ORDERED: CEFEPIME 2 GM/D5W RTU 2 GM/50 ML RTUPB IV ONE (15:39)
[2017-12-08] MEDS ORDERED: INSULIN REG, HUMAN 100 UNIT/ML 3 ML VIAL (PYX) SUBCUT ONE (17:55)
[2017-12-08] MEDS ORDERED: HYDRALAZINE HCL 10 MG TABLET PO ONE (17:58)
[2017-12-08] MEDS ORDERED: LORAZEPAM INJ 2 MG/1 ML VIAL IV ONE (18:26)
[2017-12-08 19:43] LABS: URINE AMPHETAMINES SCREEN NEGATIVE; URINE BARBITURATES SCREEN NEGATIVE; URINE BENZODIAZEPINES SCREEN NEGATIVE; URINE COCAINE SCREEN NEGATIVE; URINE MARIJUANA (THC) SCREEN NEGATIVE; URINE METHADONE SCREEN NEGATIVE; URINE PHENCYCLIDINE SCREEN NEGATIVE
[2017-12-08] MEDS ORDERED: CLONIDINE HCL 0.1 MG TABLET PO ONE (19:55)
--- NOTE | 2017-12-08 22:46 | EKG REPORT ---
SEVERITY:- BORDERLINE ECG - SINUS RHYTHM PROBABLE LEFT ATRIAL ABNORMALITY : Confirmed by: Truong Stovall 08-Dec-2017 22:45:59
[2017-12-09] MEDS ORDERED: INSULIN REG, HUMAN 100 UNIT/ML 3 ML VIAL (PYX) SUBCUT ONE (03:28)
[2017-12-09 03:41] VITALS: BP 153/88
--- NOTE | 2017-12-09 09:09 | RADIOLOGY REPORT (SQ) ---
EXAM DESCRIPTION: CT FINE NEEDLE ASPIRATION COMPLETED DATE/TIME: 12/08/2017 6:23 pm REASON FOR STUDY: LUMBAR SPINE DISCITIS COMPARISON: MRI lumbar spine 12/08/2017, 10/01/2017 TECHNIQUE: After obtaining informed consent and explaining the risks and benefits of IV pain medicat ions/conscious sedation,the patient agreed to the procedure. The patient was brought to the CT suite and was placed prone on the CT gurney. The patient was preppe d and draped in the usual sterile fashion . Axial images were obtained for targeting of theL3-4 disc space. An appropriate access site was selected. IV pain control was administered and physician direc tion by the registered nurse using 25 micrograms of fentanyl. Physiologic monitoring was provided bef ore, during, and after sedation. The total sedation time was 30 minutes. Documentation face to face time, the performing proceduralist, spent monitoring the patient: 10minute s. Noncontrasted CT of the lumbar spine was performed to localize an approach for the L3-4 disc space a spiration. A percutaneous site was marked. Time out was performed. After skin prep and local lidocaine for skin and deep tissue anesthesia, a 15 cm long 18 gauge needl e was used to obtain several aspirates from the L3-4 disc space. These were submitted to microbiolog y for Gram stain culture and sensitivity. No immediate postprocedure complications. Total of 9.[address] fluoro was used. 54 CT Fluoroscopic images were obtained and saved to PACS. All CT scanners at this facility use dose modulation, iterative reconstruction, and/or weight based d osing when appropriate to reduce radiation dose to as low as reasonably achievable (ALARA). [facility]: Dose Right [facility]: CareDose [facility]: Dose Right [facility]: Teradose 4D [facility]: [employer] RADIATION DOSE: CT Rad equipment meets quality standard of care and radiation dose reduction techniq ues were employed. CTDIvol: 4.0 - 13.1 mGy. DLP: 369 mGy-cm. mGy. LIMITATIONS: None. FINDINGS: CT guided liver biopsy as detailed above. IMPRESSION: CT GUIDED L3-4 DISC SPACE ASPIRATION FOR GRAM STAIN CULTURE AND SENSITIVITY. MICROBIOL OGY RESULTS ARE PENDING. NO IMMEDIATE COMPLICATIONS. COMMENT: Patient medication list reviewed:Yes- Quality ID# [id number]:Eligible professional attests to docu menting in the medical record they obtained, updated, or reviewed the patient's current medications.. Quality ID [id number]: Final reports for procedures using fluoroscopy that document radiation exposure han loi, or exposure time and number of fluorographic images (if radiation exposure indices are not avail able) TECHNICAL DOCUMENTATION: JOB ID: [id number] Quality ID # [id number]: Final reports with documentation of one or more dose reduction techniques (e.g., A utomated exposure control, adjustment of the mA and/or kV according to patient size, use of iterative reconstruction technique) 2010 [employer]- All Rights Reserved Reading location - IP/workstation name: [email or web address]
== END 2017-12-09 03:45 | disposition short-term general hospital (02) ==
LOC: ER 06:50
DX: M46.26 Osteomyelitis of vertebra, lumbar region (principal); M46.40 Discitis, unspecified, site unspecified; M54.5 Low back pain; R26.2 Difficulty in walking, not elsewhere classified; Z59.0 Homelessness; E78.00 Pure hypercholesterolemia, unspecified; I10 Essential (primary) hypertension; J44.9 Chronic obstructive pulmonary disease, unspecified; E10.9 Type 1 diabetes mellitus without complications; Z79.4 Long term (current) use of insulin
CPT/HCPCS: 93005; 96376; 99285; 96361; 96375; 96365; 36415; 87040; 87086; 87205; 87070; 82962; 82550; 83605; 85025; 85610; 85730; 87075; 80053; 81001; 80307; 82803; 72148; 10022; 93010; J3490 ×4; J3010; J1170; J2060; J1815 ×2; J0780; J7030; J3370; J0692; J2250

== ENCOUNTER 2018-04-16 19:03 | Inpatient (IN) | payer MEDICAID ==
--- NOTE | 2018-04-16 20:47 | ER Document Report ---
ED General - General Chief Complaint: High Blood Sugar Stated Complaint: FOOT PAIN Time Seen by Provider: 04/16/18 19:57 Notes: Patient is a 57-year old male history of prior fifth digit amputation on the right foot, recurrent diabetic foot ulcers, poor glycemic control with diabetes , has been out of medications for at least the past 2 weeks who presents with drainage and pain from his right foot. Patient states that the foot has become increasingly painful over the last 2 weeks and that it "popped" today draining purulent material from the lateral aspect of the foot. He describes the pain to the foot as being a dull, throbbing, constant pain. He denies fever but states that he had nausea and vomiting. Denies abdominal pain. States this feels similar to when he has had severe diabetic foot infections in the past that required hospitalization. He does not have a primary care physician. TRAVEL OUTSIDE OF THE [place] IN LAST 30 DAYS: No - Related Data Allergies/Adverse Reactions: insulin regular [From Novolin 70/30] Allergy (Unknown, Verified 04/16/18 19:38) insulin isophane (NPH) [From Novolin 70/30] Allergy (Verified 04/16/18 19:38) metformin Allergy (Verified 04/16/18 19:38) Past Medical History - General Information source: Patient - Social History Smoking Status: Current Some Day Smoker Chew tobacco use (# tins/day): Yes Frequency of alcohol use: None Drug Abuse: None Lives with: Homeless Family History: Reviewed & Not Pertinent Patient has suicidal ideation: No Patient has homicidal ideation: No - Past Medical History Cardiac Medical History: Reports: Hx Hypercholesterolemia, Hx Hypertension Pulmonary Medical History: Reports: Hx COPD Endocrine Medical History: Reports: Hx Diabetes Mellitus Type 1, Hx Diabetes Mellitus Type 2 Renal/ Medical History: Reports: Hx Renal Insufficiency. 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 bone Review of Systems - Review of Systems Notes: Constitutional: Negative for fever. HENT: Negative for sore throat. Eyes: Negative for visual changes. Cardiovascular: Negative for chest pain. Respiratory: Negative for shortness of breath. Gastrointestinal: Negative for abdominal pain, positive for nausea and vomiting Genitourinary: Negative for dysuria. Musculoskeletal: Positive for right foot pain Skin: Positive for multiple wounds to the lateral and plantar surface of the right foot Neurological: Negative for headaches, weakness or numbness. 10 point ROS negative except as marked above and in HPI. Physical Exam - Vital signs Vitals: Temp Pulse Resp BP Pulse Ox 99.2 F 86 22 H 166/89 H 97 04/16/18 19:29 04/16/18 19:29 04/16/18 19:29 04/16/18 19:29 04/16/18 19:29 Interpretation: Hypertensive Notes: PHYSICAL EXAMINATION: GENERAL: Appears moderately uncomfortable but in no acute distress HEAD: Atraumatic, normocephalic. EYES: Pupils equal round and reactive to light, extraocular movements intact, sclera anicteric, conjunctiva are normal. ENT: nares patent, oropharynx clear without exudates. Moderate dry mucous membranes. NECK: Normal range of motion, supple without lymphadenopathy LUNGS: Breath sounds clear to auscultation bilaterally and equal. No wheezes rales or rhonchi. HEART: Regular rate and rhythm without murmurs, 1+ DP pulse on the right, 2+ left ABDOMEN: Soft, nontender, normoactive bowel sounds. No guarding, no rebound. No masses appreciated. EXTREMITIES: Normal range of motion, no pitting or edema. NEUROLOGICAL: No focal neurological deficits. Moves all extremities spontaneously and on command. PSYCH: Normal mood, normal affect. SKIN: Warm, Dry, normal turgor, there is a 0.5 x 0.25 open wound to the lateral plantar aspect of the right foot. There is also a punctate opening to the lateral distal aspect of the right foot with purulent drainage that is foul in odor. The skin to the foot on the right is diffusely necrotic. Course - Re-evaluation Re-evalutation: 04/16/18 20:47 Patient presents with 2 open wounds on the right foot draining purulence, foul material with associated nausea and vomiting. Initial heart rate and temperature are unremarkable. Will obtain x-ray of the right foot, labs, reassess 04/16/18 21:43 X-ray does show findings consistent with osteomyelitis of the fourth metatarsal bone, leukocytosis noted on labs. Given acute osteomyelitis with associated leukocytosis patient will require IV antibiotics. Vancomycin and Zosyn have been initiated. Will discuss the hospitalist for admission. 04/16/18 22:[address] Fulton who has accepted the patient for admission. - Vital Signs Vital signs: Temp Pulse Resp BP Pulse Ox 99.2 F 86 22 H 166/89 H 97 04/16/18 19:29 04/16/18 19:29 04/16/18 19:29 04/16/18 19:29 04/16/18 19:29 - Laboratory Result Diagrams: 04/16/18 20:46 04/16/18 21:25 Laboratory results interpreted by me: 04/16/18 04/16/18 20:46 21:25 WBC 14.4 H Hgb 13.4 L RDW 15.0 H Plt Count 561 H Seg Neutrophils % 83.3 H Lymphocytes % 8.5 L Absolute Neutrophils 12.0 H Sodium 132.0 L Chloride 96 L Carbon Dioxide 21 L BUN 22 H Glucose 536 H* Discharge - Discharge Clinical Impression: Diabetic foot infection, Noncompliance Diabetes mellitus Qualifiers: Diabetes mellitus type: type 2 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 long insulin use: with prison use Diabetes mellitus complication status: with skin complications Diabetes mellitus complication detail: with foot ulcer Qualified Code(s): E11.621 - Type 2 diabetes mellitus with foot ulcer; L97.509 - Non-pressure chronic ulcer of other part of unspecified foot with unspecified severity; L97.509 - Non-pressure chronic ulcer of other part of unspecified foot with unspecified severity; L97.509 - Non-pressure chronic ulcer of other part of unspecified foot with unspecified severity; L97.509 - Non-pressure chronic ulcer of other part of unspecified foot with unspecified severity; Z79.4 - custodial (current) use of insulin; Z79.4 - custodial (current) use of insulin; Z79.4 - custodial (current) use of insulin; Z79.4 - custodial (current) use of insulin Osteomyelitis Qualifiers: Osteomyelitis type: unspecified type Osteomyelitis location: foot Laterality: right Qualified Code(s): M86.9 - Osteomyelitis, unspecified Condition: Fair Disposition: ADMITTED INPATIENT Admitting Provider: Hospitalist Unit Admitted: Medical Floor Referrals: MUKESH HOLDEN DO [NO LOCAL MD] - Follow up as needed
[2018-04-16 20:59] LABS: ABSOLUTE BASOPHILS # (AUTO) 0.1 10^3/uL (0.0-0.2); ABSOLUTE EOSINOPHILS # (AUTO) 0.1 10^3/uL (0.0-0.6); ABSOLUTE LYMPHOCYTES (AUTO) 1.2 10^3/uL (0.5-4.7); BASOPHILS % (AUTO) 0.6 % (0-2); EOSINOPHILS % (AUTO) 0.9 % (0-6); HEMATOCRIT 40.2 % (37.9-51.0); HEMOGLOBIN 13.4 g/dL (13.5-17.0); LYMPHOCYTES % (AUTO) 8.5 % (13-45); MEAN CORPUSCULAR HEMOGLOBIN 28.3 pg (27.0-33.4); MEAN CORPUSCULAR HGB CONC 33.2 g/dL (32.0-36.0); MEAN CORPUSCULAR VOLUME 85 fl (80-97); MONOCYTES % (AUTO) 6.7 % (3-13); PLATELET COUNT 561 10^3/uL (150-450); RED BLOOD COUNT 4.73 10^6/uL (4.35-5.55); SEGMENTED NEUTROPHILS % (AUTO) 83.3 % (42-78); TOTAL CELLS COUNTED % (AUTO) 100 %; VENOUS BLOOD BASE EXCESS -0.7 mmol/L; VENOUS BLOOD HCO3 24.8 mmol/L (20-32); VENOUS BLOOD PCO2 43.7 mmHg (35-63); VENOUS BLOOD PH 7.37 (7.30-7.42); WHITE BLOOD COUNT 14.4 10^3/uL (4.0-10.5)
--- NOTE | 2018-04-16 21:11 | RADIOLOGY REPORT (SQ) ---
EXAM DESCRIPTION: FOOT RIGHT COMPLETE COMPLETED DATE/TIME: 04/16/2018 8:22 pm REASON FOR STUDY: foot infection COMPARISON: 09/06/2017 NUMBER OF VIEWS: Three views. TECHNIQUE: AP, lateral and oblique radiographic images acquired of the right foot. LIMITATIONS: None. FINDINGS: MINERALIZATION: Normal. BONES: Unchanged appearance of amputation of the 5th digit. No acute fracture. New erosions along t he plantar base of the 4th metacarpal. Tiny plantar calcaneal enthesophyte. JOINTS: No effusions. SOFT TISSUES: Soft tissue swelling overlying in the lateral midfoot with a soft tissue defect. No di ssecting subcutaneous gas. No radiopaque foreign body. Scattered vascular calcifications. OTHER: No other significant finding. IMPRESSION: Findings suggestive of active osteomyelitis of the base of the 4th metacarpal underlying the soft tissue ulceration. TECHNICAL DOCUMENTATION: JOB ID: [id number] [facility]- All Rights Reserved Reading location - IP/workstation name: [email or web address]
[2018-04-16] MEDS ORDERED: VANCOMYCIN HCL INJ 1000 MG VIAL IV ONE (21:42)
[2018-04-16] MEDS ORDERED: PIPERACILLIN/TAZOBACTAM 3.375 GM VIAL IV ONE (21:42)
[2018-04-16] MEDS ORDERED: RINGERS SOLUTION,LACTATED 1,000 ML IV ONE (21:42)
[2018-04-16 21:58] LABS: ANION GAP 15 (5-19); BLOOD UREA NITROGEN 22 mg/dL (7-20); CALCIUM 9.1 mg/dL (8.4-10.2); CARBON DIOXIDE 21 mmol/L (22-30); CHLORIDE 96 mmol/L (98-107); POTASSIUM 4.6 mmol/L (3.6-5.0)
[2018-04-16 22:06] LABS: GLUCOSE 536 mg/dL (75-110)
[2018-04-16] MEDS ORDERED: INSULIN LISPRO 100 UNIT/ML 3 ML VIAL SUBCUT ONE (22:13)
[2018-04-16] MEDS ORDERED: DEXTROSE 50%-WATER 25 GM/50 ML DISP.SYRIN IV PRN ×2 (22:33)
[2018-04-16] MEDS ORDERED: GLUCAGON,HUMAN RECOMB 1 MG INJ IM PRN (22:33)
[2018-04-16] MEDS ORDERED: DEXTROSE 40% GEL 15 GM TUBE PO PRN ×2 (22:33)
[2018-04-16] MEDS ORDERED: ACETAMINOPHEN 325 MG TABLET PO PRN (22:33)
[2018-04-16] MEDS ORDERED: IPRATROPIUM/ALBUTEROL 0.5-2.5 MG/3 ML AMPUL NEB PRN (22:33)
[2018-04-16] MEDS ORDERED: MAGNESIUM HYDROXIDE SUSP 30 ML UDCUP PO PRN (22:33)
[2018-04-16] MEDS ORDERED: KETOROLAC TROMETHAMINE 0.45% 4 DROP/0.4 ML DROPERETTE OD SCH (22:45)
[2018-04-16] MEDS ORDERED: VANCOMYCIN HCL 0 MG in DEXTROSE 5%-WATER 250 ML IV NR (22:45)
[2018-04-16] MEDS ORDERED: CEFEPIME 1 GM/D5W RTU 1 GM/50 ML RTUPB IV ONE (23:00)
[2018-04-16] MEDS ORDERED: DIAZEPAM INJ 10 MG/2 ML DISP.SYRIN IV ONE (23:11)
[2018-04-17] MEDS ORDERED: VANCOMYCIN HCL INJ 1000 MG VIAL IV ONE (01:00)
[2018-04-17] MEDS: KETOROLAC TROMETHAMINE INJ/PF 30 MG/1 ML SDV IV PRN ×2 (01:48→07:22)
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
[2018-04-17] MEDS ORDERED: TRAZODONE HCL 50 MG TABLET PO ONE (04:00)
[2018-04-17] MEDS: NORMAL SALINE 1000 ML 1,000 ML IV PRN ×2 (04:30→08:33)
[2018-04-17] MEDS: OXYCODONE-ACETAMINOPHEN 5-325 MG TABLET PO PRN ×3 (04:32→21:26)
[2018-04-17] MEDS: HEPARIN SOD (PORCINE) 5,000 UNIT/ML 1 ML SYRINGE SUBCUT SCH ×3 (05:08→21:14)
[2018-04-17 05:42] LABS: ABSOLUTE BASOPHILS # (AUTO) 0.1 10^3/uL (0.0-0.2); ABSOLUTE EOSINOPHILS # (AUTO) 0.2 10^3/uL (0.0-0.6); ABSOLUTE LYMPHOCYTES (AUTO) 1.1 10^3/uL (0.5-4.7); ABSOLUTE MONOCYTES (AUTO) 0.9 10^3/uL (0.1-1.4); ABSOLUTE NEUT (AUTO) 9.3 10^3/uL (1.7-8.2); BASOPHILS % (AUTO) 0.4 % (0-2); EOSINOPHILS % (AUTO) 1.3 % (0-6); HEMATOCRIT 32.7 % (37.9-51.0); LYMPHOCYTES % (AUTO) 9.3 % (13-45); MEAN CORPUSCULAR HEMOGLOBIN 27.6 pg (27.0-33.4); MEAN CORPUSCULAR HGB CONC 33.6 g/dL (32.0-36.0); MEAN CORPUSCULAR VOLUME 82 fl (80-97); MONOCYTES % (AUTO) 7.6 % (3-13); PLATELET COUNT 426 10^3/uL (150-450); RED BLOOD COUNT 3.99 10^6/uL (4.35-5.55); RED CELL DISTRIBUTION WIDTH 14.6 % (11.5-14.0); SEGMENTED NEUTROPHILS % (AUTO) 81.4 % (42-78); TOTAL CELLS COUNTED % (AUTO) 100 %; WHITE BLOOD COUNT 11.4 10^3/uL (4.0-10.5)
[2018-04-17 06:05] LABS: ANION GAP 10 (5-19); BLOOD UREA NITROGEN 20 mg/dL (7-20); CALCIUM 8.7 mg/dL (8.4-10.2); CARBON DIOXIDE 24 mmol/L (22-30); CHLORIDE 103 mmol/L (98-107); GLUCOSE 219 mg/dL (75-110); POTASSIUM 4.2 mmol/L (3.6-5.0); SODIUM 137.2 mmol/L (137-145)
--- NOTE | 2018-04-17 07:12 | PDOC CONSULTATION ---
Consultation Attending physician:: LUIS CARNES Consult reason:: Septic right foot History of Present Illness Admission Date/PCP: 04/16/18 22:34 Patient complains of: Right foot pain History of Present Illness: LEEANNE WYLIE is a 57 year old male Presents the emergency department complaining of right foot pain, chronic; patient has a long complex history of psychiatric, and metabolic problems include diabetes mellitus, noncompliance; he is now homeless and is walking 10 hours/day. He does not have appropriate foot wear. He is 5-1/2 months status post right foot debridement, status post remote right fifth ray amputation. Presents with purulent discharge from the right foot, and x-ray findings consistent with osteomyelitis of the right fourth metatarsal head. Past Medical History Cardiac Medical History: Reports: Hyperlipidema, Hypertension Pulmonary Medical History: Reports: Chronic Obstructive Pulmonary Disease (COPD) Endocrine Medical History: Reports: Diabetes Mellitus Type 1, Diabetes Mellitus Type 2 Musculoskeltal Medical History: Reports: Other - Osteomyelitis Psychiatric Medical History: Reports: Depression Past Surgical History Past Surgical History: Right fifth ray amputation and debridement Past Surgical History: Reports: Orthopedic Surgery - fifth right toe amputated, Other - Umbilical hernia repair, amputation right 5th digit with 5t metatarsal bone Social History Lives with: Homeless Smoking Status: Former Smoker Frequency of Alcohol Use: None Hx Recreational Drug Use: No Drugs: None Hx Prescription Drug Abuse: No - Advance Directive Resuscitation Status: Full Code Family History Family History: DM, Hypertension Parental Family History Reviewed: Yes Children Family History Reviewed: Yes Sibling(s) Family History Reviewed.: Yes Medication/Allergy Home Medications: Lisinopril [Prinivil 10 mg Tablet] 20 mg PO DAILY #30 tablet 10/02/17 Cyclobenzaprine HCl [Flexeril 10 mg Tablet] 10 mg PO TIDP PRN #15 tab 11/22/17 Insulin Glargine,Hum.rec.anlog [Lantus Insulin Inj 300 Unit/3 ml Pen] 18 unit SUBCUT QHS #10 ml 11/22/17 Ketorolac Tromethamine 0.45% [Acuvail 0.45% Oph Soln 0.4 ml/Dropperette] 1 drop OD ASDIR 11/24/17 Moxifloxacin HCl [Vigamox 0.5% Oph Soln 3 ml] 1 drop OP ASDIR 11/24/17 Prednisolone Acetate [Pred Forte] 1 ml OP ASDIR 11/24/17 Allergies/Adverse Reactions: insulin regular [From Novolin 70/30] Allergy (Unknown, Verified 04/16/18 19:38) insulin isophane (NPH) [From Novolin 70/30] Allergy (Verified 04/16/18 19:38) metformin Allergy (Verified 04/16/18 19:38) Review of Systems ROS unobtainable: Due to mental status, Other - Schizophrenia history thereof Physical Exam Vital Signs: Temp Pulse Resp BP Pulse Ox 98.4 F 68 17 124/63 100 04/17/18 04:00 04/17/18 04:00 04/17/18 01:00 04/17/18 04:00 04/17/18 04:00 Intake & Output 04/16/18 04/17/18 04/18/18 06:59 06:59 06:59 Intake Total 1050 Balance 1050 Weight 84.4 kg General appearance: PRESENT: no acute distress Eye exam: PRESENT: EOMI Neck exam: PRESENT: full ROM Respiratory exam: PRESENT: clear to auscultation manuel Pulses: PRESENT: normal carotid pulses, normal radial pulses, normal femoral pulses, other - Palpable popliteal pulses GI/Abdominal exam: PRESENT: soft Rectal exam: PRESENT: deferred Musculoskeletal exam: PRESENT: other - Feet with crinkled skin bilaterally. Right foot with surgically amputated right fifth ray amputation. There are multiple sites of pus actively draining from the lateral and plantar surface of the right foot; chronic ulceration as well. Psychiatric exam: PRESENT: agitated Results Laboratory Results: 04/17/18 05:18 04/17/18 05:18 04/17/18 04/17/18 05:18 05:18 WBC 11.4 H RBC 3.99 L Hgb 11.0 L D Hct 32.7 L MCV 82 MCH 27.6 MCHC 33.6 RDW 14.6 H Plt Count 426 Seg Neutrophils % 81.4 H Lymphocytes % 9.3 L Monocytes % 7.6 Eosinophils % 1.3 Basophils % 0.4 Absolute Neutrophils 9.3 H Absolute Lymphocytes 1.1 Absolute Monocytes 0.9 Absolute Eosinophils 0.2 Absolute Basophils 0.1 Sodium 137.2 Potassium 4.2 Chloride 103 Carbon Dioxide 24 Anion Gap 10 BUN 20 Creatinine 1.22 Est GFR ( Amer) > 60 Est GFR (Non-Af Amer) > 60 Glucose 219 H Calcium 8.7 Impressions: Foot X-Ray 04/16/18 19:57 IMPRESSION: Findings suggestive of active osteomyelitis of the base of the 4th metacarpal underlying the soft tissue ulceration. Assessment & Plan - Diagnosis (1) Osteomyelitis Qualifiers: Osteomyelitis type: unspecified type Osteomyelitis location: foot Laterality: right Qualified Code(s): M86.9 - Osteomyelitis, unspecified Is this a current diagnosis for this admission?: Yes Plan: Impression: Active soft tissue infection and osteomyelitis of the right foot involving the right fourth metatarsal head in patient with previous right fifth ray amputation; long history of noncompliance, uncontrolled diabetes Recommendations: 1. N.p.o., continue IV antibiotics 2. Take patient to the operating room today for vigorous soft tissue and bone debridement of the lateral aspect of the foot; this will likely leave him with a mechanically compromised sanjay-foot that will be at high risk for re- infection. Eventually the patient will require foot amputation, but I do not think he has the educational or emotional maturity to grasp that. The procedure to be performed by Dr. Smith. (2) Diabetes mellitus Qualifiers: Diabetes mellitus type: type 2 Diabetes mellitus mcc insulin use: with mcc use Diabetes mellitus complication status: with skin complications Diabetes mellitus complication detail: with foot ulcer Qualified Code(s): E11.621 - Type 2 diabetes mellitus with foot ulcer; L97.509 - Non-pressure chronic ulcer of other part of unspecified foot with unspecified severity; L97.509 - Non-pressure chronic ulcer of other part of unspecified foot with unspecified severity; L97.509 - Non-pressure chronic ulcer of other part of unspecified foot with unspecified severity; L97.509 - Non-pressure chronic ulcer of other part of unspecified foot with unspecified severity; Z79.4 - senior living (current) use of insulin; Z79.4 - rotary drier feeder (current) use of insulin; Z79.4 - rotary drier feeder (current) use of insulin; Z79.4 - senior living (current ) use of insulin Is this a current diagnosis for this admission?: Yes (4) Acute on chronic renal failure Qualifiers: Chronic kidney disease stage: stage 3 (moderate) Is this a current diagnosis for this admission?: Yes (5) Hyperlipidemia Is this a current diagnosis for this admission?: Yes - Time Time Spent: 30 to 50 Minutes Smoking Cessation Education: 3 to 10 minutes Medications reviewed and adjusted accordingly: Yes Anticipated discharge: Home - Inpatient Certification Based on my medical assessment, after consideration of the patient's comorbidities, presenting symptoms, or acuity I expect that the services needed warrant INPATIENT care.: Yes I certify that my determination is in accordance with my understanding of Medicare's requirements for reasonable and necessary INPATIENT services [42 CFR 412.3e].: Yes Medical Necessity: Need For IV Fluids, Need for Pain Control, Need for IV Antibiotics, Need for Surgery
--- NOTE | 2018-04-17 10:35 | PDOC PROGRESS REPORT ---
Subjective Progress Note for:: 04/17/18 Subjective:: Mr. Mcleod is a 57 year old male with a past medical history of homelessness, anxiety, hypertension, stage III chronic kidney disease, uncontrolled insulin- dependent diabetes, COPD, history of osteomyelitis, peripheral vascular disease S/P 5th toe amputation who presented with increasing right foot pain with purulent drainage. Upon admission, right foot was noted to have multiple necrotic tissues with osteomyelitis on x-ray. No acute event overnight. Patient is comfortable upon encounter this morning. He continues ot have drainage from his right foot. He is going for surgical debridement this morning. No fever or chills. Reason For Visit: DIABETIC FOOT W OSTEOMYOLYSIS Physical Exam Vital Signs: Temp Pulse Resp BP Pulse Ox 98.3 F 69 16 144/71 H 99 04/17/18 09:35 04/17/18 09:35 04/17/18 09:35 04/17/18 09:35 04/17/18 09:35 Intake & Output 04/16/18 04/17/18 04/18/18 06:59 06:59 06:59 Intake Total 1050 900 Balance 1050 900 Weight 186 lb 1.122 oz General appearance: PRESENT: no acute distress, well-developed, well-nourished Head exam: PRESENT: atraumatic, normocephalic Eye exam: PRESENT: conjunctiva pink, EOMI, PERRLA. ABSENT: scleral icterus Ear exam: PRESENT: normal external ear exam Mouth exam: PRESENT: moist, tongue midline Neck exam: ABSENT: carotid bruit, JVD, lymphadenopathy, thyromegaly Respiratory exam: PRESENT: clear to auscultation manuel. ABSENT: rales, rhonchi, wheezes Cardiovascular exam: PRESENT: RRR. ABSENT: diastolic murmur, rubs, systolic murmur Pulses: PRESENT: normal dorsalis pedis pul GI/Abdominal exam: PRESENT: normal bowel sounds, soft. ABSENT: distended, guarding, mass, organolmegaly, rebound, tenderness Rectal exam: PRESENT: deferred Extremities exam: PRESENT: other - note of ~2 x 2 cm ulcer on the right lateral foot with necrotic tissues and puruelt drainage Results Laboratory Results: 04/17/18 05:18 04/17/18 05:18 04/17/18 04/17/18 05:18 05:18 WBC 11.4 H RBC 3.99 L Hgb 11.0 L D Hct 32.7 L MCV 82 MCH 27.6 MCHC 33.6 RDW 14.6 H Plt Count 426 Seg Neutrophils % 81.4 H Lymphocytes % 9.3 L Monocytes % 7.6 Eosinophils % 1.3 Basophils % 0.4 Absolute Neutrophils 9.3 H Absolute Lymphocytes 1.1 Absolute Monocytes 0.9 Absolute Eosinophils 0.2 Absolute Basophils 0.1 Sodium 137.2 Potassium 4.2 Chloride 103 Carbon Dioxide 24 Anion Gap 10 BUN 20 Creatinine 1.22 Est GFR ( Amer) > 60 Est GFR (Non-Af Amer) > 60 Glucose 219 H Calcium 8.7 Impressions: Foot X-Ray 04/16/18 19:57 IMPRESSION: Findings suggestive of active osteomyelitis of the base of the 4th metacarpal underlying the soft tissue ulceration. Assessment & Plan - Diagnosis (1) Osteomyelitis Qualifiers: Osteomyelitis type: other acute Osteomyelitis location: foot Laterality: right Qualified Code(s): M86.171 - Other acute osteomyelitis, right ankle and foot Is this a current diagnosis for this admission?: Yes Plan: X-ray is suggestive of acute osteomyelitis on 4th metacarpal baseof the right foot. Patient is going for surgery this morning. Continue vancomycin and cefepime. (2) Uncontrolled type 2 diabetes mellitus Is this a current diagnosis for this admission?: Yes Plan: Patient has uncontrolled IDDM. HBa1c is 13.8. Continue Lantus 18 u HS and insulin sliding scale coverage. Will titrate insulin regimen based on subsequent sugar checks. (3) HTN (hypertension) Qualifiers: Hypertension type: essential hypertension Qualified Code(s): I10 - Essential (primary) hypertension Is this a current diagnosis for this admission?: Yes Plan: Blood pressures in the 140/90s. Continue lisinopril. (4) CKD stage 3 secondary to diabetes Is this a current diagnosis for this admission?: Yes Plan: Creatinine appears to be at baseline, Cr 1.2. Avoid nephrotoxic agents. - Time Time Spent with patient: 15-24 minutes
[2018-04-17] MEDS ORDERED: MIDAZOLAM 2 MG/2 ML INJ ONE (11:22)
[2018-04-17] MEDS ORDERED: KETAMINE HCL INJ 500 MG/10 ML VIAL ONE (11:22)
[2018-04-17] MEDS ORDERED: FENTANYL CITRATE INJ/PF 100 MCG/2 ML AMPUL ONE (11:22)
[2018-04-17] MEDS ORDERED: PROPOFOL INJ 200 MG/20 ML VIAL IV ONE (11:23)
[2018-04-17] MEDS ORDERED: LIDOCAINE 1% INJ-PF (10 MG/ML) 30 ML SDV ONE (11:30)
[2018-04-17] MEDS ORDERED: BUPIVACAINE HCL 0.5 % INJ/PF 30 ML SDV ONE (11:30)
[2018-04-17] MEDS ORDERED: DIPHENHYDRAMINE HCL 50 MG/ML VIAL IV PRN (11:56)
[2018-04-17] MEDS ORDERED: PROMETHAZINE HCL INJ 25 MG/1 ML VIAL IV PRN ×2 (11:56)
[2018-04-17] MEDS ORDERED: MEPERIDINE HCL/PF INJ 25 MG/1 ML DISP.SYRIN IV PRN (11:56)
[2018-04-17] MEDS ORDERED: FENTANYL CITRATE INJ/PF 100 MCG/2 ML AMPUL IV PRN ×3 (11:56)
[2018-04-17] MEDS ORDERED: ONDANSETRON HCL INJ/PF 4 MG/2 ML SDV IV PRN (11:56)
[2018-04-17] MEDS ORDERED: MORPHINE SULFATE 10 MG/ML INJ IV PRN (11:56)
[2018-04-17] MEDS ORDERED: OXYCODONE-ACETAMINOPHEN 5-325 MG TABLET PO PRN ×2 (11:56)
[2018-04-17] MEDS: FAMOTIDINE 20 MG TABLET PO SCH ×2 (14:10→21:15)
[2018-04-17] MEDS: DOCUSATE SODIUM 100 MG CAPSULE PO SCH ×2 (14:10→17:00)
[2018-04-17] MEDS: LISINOPRIL 10 MG TABLET PO SCH (14:13)
[2018-04-17] MEDS: CEFEPIME 1 GM/D5W RTU 1 GM/50 ML RTUPB IV SCH ×2 (14:14→21:25)
[2018-04-17] MEDS: VANCOMYCIN HCL 750 MG in DEXTROSE 5%-WATER 250 ML IV SCH ×2 (14:58→23:24)
[2018-04-17] MEDS: INSULIN LISPRO 100 UNIT/ML 3 ML VIAL SUBCUT PRN (16:59)
--- NOTE | 2018-04-17 19:39 | Operative Report ---
Nonrecallable Operative Report DATE OF SURGERY: 04/17/18 PREOPERATIVE DIAGNOSIS: Diabetic foot infection with osteomyelitis POSTOPERATIVE DIAGNOSIS: Same as above OPERATION: 1. Amputation of the right fourth toe and metatarsal. 2. Drainage of diabetic foot abscess SURGEON: TIFFANIE WILSON ANESTHESIA: LMAC TISSUE REMOVED OR ALTERED: Fourth toe and metatarsal COMPLICATIONS: None apparent ESTIMATED BLOOD LOSS: 25 cc PROCEDURE: Drains/implants: Kerlix soaked in Betadine. Procedure in detail: After informed consent was obtained, the patient was brought into the operating room and laid in the supine position. The area of the right foot was prepped and draped in a normal sterile fashion. Incision was created in the lateral foot from the area of ulceration to the base of the fourth toe. The incision was carried around the base of the fourth toe. Dissection was carried through the subcutaneous tissue using sharp dissection and Bovie electrocautery. The fourth toe and fourth metatarsal were excised from the surrounding tissue. In the midportion of the fourth metatarsal there was an acute fracture with bony fragments protruding. There was a large amount of purulent material surrounding the fourth metatarsal. Once the fourth toe and metatarsal were completely removed, the abscess cavity was irrigated and curetted. Hemostasis was achieved using Bovie electrocautery. The wound was left open. It was packed with Kerlix and soaked in Betadine. A dressing was then placed, and the procedure was concluded. All sponge, instrument, and needle counts were correct x2. Condition: Fair.
[2018-04-17] MEDS: TRAZODONE HCL 50 MG TABLET PO SCH (21:26)
[2018-04-17] MEDS: INSULIN GLARGINE,HUM.REC.ANLOG 300 UNIT/3 ML INSULN.PEN SUBCUT SCH (21:38)
[2018-04-18] MEDS: HYDRALAZINE HCL INJ/PF 20 MG/1 ML SDV IV PRN (05:02)
[2018-04-18] MEDS: INSULIN LISPRO 100 UNIT/ML 3 ML VIAL SUBCUT PRN ×4 (05:59→21:13)
[2018-04-18] MEDS: HEPARIN SOD (PORCINE) 5,000 UNIT/ML 1 ML SYRINGE SUBCUT SCH ×3 (06:01→21:41)
[2018-04-18 06:20] LABS: HEMATOCRIT 31.6 % (37.9-51.0); HEMOGLOBIN 10.7 g/dL (13.5-17.0); MEAN CORPUSCULAR HEMOGLOBIN 27.7 pg (27.0-33.4); MEAN CORPUSCULAR HGB CONC 33.8 g/dL (32.0-36.0); MEAN CORPUSCULAR VOLUME 82 fl (80-97); PLATELET COUNT 388 10^3/uL (150-450); RED BLOOD COUNT 3.85 10^6/uL (4.35-5.55); RED CELL DISTRIBUTION WIDTH 14.6 % (11.5-14.0); WHITE BLOOD COUNT 9.6 10^3/uL (4.0-10.5)
[2018-04-18 06:44] LABS: ANION GAP 12 (5-19); BLOOD UREA NITROGEN 19 mg/dL (7-20); CALCIUM 8.1 mg/dL (8.4-10.2); CARBON DIOXIDE 18 mmol/L (22-30); CHLORIDE 101 mmol/L (98-107); GLUCOSE 381 mg/dL (75-110); POTASSIUM 4.6 mmol/L (3.6-5.0); SODIUM 131.1 mmol/L (137-145)
[2018-04-18 06:48] LABS: ABSOLUTE LYMPHOCYTES# (MANUAL) 0.9 10^3/uL (0.5-4.7); ABSOLUTE MONOCYTES # (MANUAL) 0.8 10^3/uL (0.1-1.4); ABSOLUTE NEUTROPHILS# (MANUAL) 7.8 10^3/uL (1.7-8.2); BASOPHILS % (MANUAL) 0 % (0-2); EOSINOPHILS % (MANUAL) 2 % (0-6); LYMPHOCYTES % (MANUAL) 9 % (13-45); MONOCYTES % (MANUAL) 8 % (3-13); SEGMENTED NEUTROPHILS % (MAN) 81 % (42-78); TOTAL CELLS COUNTED 100
[2018-04-18 06:52] LABS: BURR CELLS SLIGHT; HELMET CELLS SLIGHT; OVALOCYTES 2+; PLATELET COMMENT ADEQUATE; POIKILOCYTOSIS 2+; TOXIC GRANULATION SLIGHT; TOXIC VACUOLATION PRESENT
[2018-04-18] MEDS: OXYCODONE-ACETAMINOPHEN 5-325 MG TABLET PO PRN ×3 (09:15→23:01)
[2018-04-18] MEDS: TRAZODONE HCL 50 MG TABLET PO SCH ×2 (09:15→21:12)
[2018-04-18] MEDS: DOCUSATE SODIUM 100 MG CAPSULE PO SCH ×2 (09:16→17:03)
[2018-04-18] MEDS: FAMOTIDINE 20 MG TABLET PO SCH ×2 (09:16→21:12)
[2018-04-18] MEDS: LISINOPRIL 10 MG TABLET PO SCH (09:16)
[2018-04-18] MEDS: CEFEPIME 1 GM/D5W RTU 1 GM/50 ML RTUPB IV SCH ×2 (09:17→21:13)
[2018-04-18] MEDS: VANCOMYCIN HCL 750 MG in DEXTROSE 5%-WATER 250 ML IV SCH ×2 (10:16→22:59)
--- NOTE | 2018-04-18 12:00 | PDOC PROGRESS REPORT ---
Subjective Progress Note for:: 04/18/18 Subjective:: Mr. Mcleod is a 57 year old male with a past medical history of homelessness, anxiety, hypertension, stage III chronic kidney disease, uncontrolled insulin- dependent diabetes, COPD, history of osteomyelitis, peripheral vascular disease S/P 5th toe amputation who presented with increasing right foot pain with purulent drainage. Upon admission, right foot was noted to have multiple necrotic tissues with osteomyelitis on x-ray. He underwent debridement, drainage of foot abscess with amputation of the 4th toe and metatarsal yesterday 04/17/18. This morning complains he is having severe pain from the surgical site. Apparently, he did not ask for his prn pain medications and thought they were all scheduled. No fever or chills. Surgical dressings in place on right foot. Reason For Visit: DIABETIC FOOT W OSTEOMYOLYSIS Physical Exam Vital Signs: Temp Pulse Resp BP Pulse Ox 99.6 F 75 18 173/67 H 96 04/18/18 04:45 04/18/18 09:49 04/18/18 09:49 04/18/18 04:45 04/18/18 09:49 Intake & Output 04/17/18 04/18/18 04/19/18 06:59 06:59 06:59 Intake Total 1050 5244 Output Total 910 Balance 1050 4334 Weight 186 lb 1.122 oz General appearance: PRESENT: no acute distress, well-developed, well-nourished Head exam: PRESENT: atraumatic, normocephalic Eye exam: PRESENT: conjunctiva pink, EOMI, PERRLA. ABSENT: scleral icterus Ear exam: PRESENT: normal external ear exam Mouth exam: PRESENT: moist, tongue midline Neck exam: ABSENT: carotid bruit, JVD, lymphadenopathy, thyromegaly Respiratory exam: PRESENT: clear to auscultation manuel. ABSENT: rales, rhonchi, wheezes Cardiovascular exam: PRESENT: RRR. ABSENT: diastolic murmur, rubs, systolic murmur Pulses: PRESENT: normal dorsalis pedis pul GI/Abdominal exam: PRESENT: normal bowel sounds, soft. ABSENT: distended, guarding, mass, organolmegaly, rebound, tenderness Rectal exam: PRESENT: deferred Extremities exam: PRESENT: other - Surgical dressings in place on right foot. Neurological exam: PRESENT: alert, awake, oriented to person, oriented to place , oriented to time, oriented to situation, CN II-XII grossly intact. ABSENT: motor sensory deficit Results Laboratory Results: 04/18/18 05:53 04/18/18 05:53 04/18/18 04/18/18 05:53 05:53 WBC 9.6 RBC 3.85 L Hgb 10.7 L Hct 31.6 L MCV 82 MCH 27.7 MCHC 33.8 RDW 14.6 H Plt Count 388 Seg Neutrophils % Not Reportable Lymphocytes % Not Reportable Monocytes % Not Reportable Eosinophils % Not Reportable Basophils % Not Reportable Absolute Neutrophils Not Reportable Absolute Lymphocytes Not Reportable Absolute Monocytes Not Reportable Absolute Eosinophils Not Reportable Absolute Basophils Not Reportable Sodium 131.1 L Potassium 4.6 Chloride 101 Carbon Dioxide 18 L Anion Gap 12 BUN 19 Creatinine 1.07 Est GFR ( Amer) > 60 Est GFR (Non-Af Amer) > 60 Glucose 381 H Calcium 8.1 L Impressions: Foot X-Ray 04/16/18 19:57 IMPRESSION: Findings suggestive of active osteomyelitis of the base of the 4th metacarpal underlying the soft tissue ulceration. Assessment & Plan - Diagnosis (1) Osteomyelitis Qualifiers: Osteomyelitis type: other acute Osteomyelitis location: foot Laterality: right Qualified Code(s): M86.171 - Other acute osteomyelitis, right ankle and foot Is this a current diagnosis for this admission?: Yes Plan: S/P Drainage of foot abscess with amputation of the 4th toe and metatarsal yesterday 04/17/18. Continue vancomycin and cefepime. (2) Bacteremia Is this a current diagnosis for this admission?: Yes Plan: Likely from osteomyelitis. Initial blood culture is growing Gram + cocci in clusters 2/2. Continue vancomcyin. Will repeat blood cultures. (3) Uncontrolled type 2 diabetes mellitus Is this a current diagnosis for this admission?: Yes Plan: Patient has uncontrolled IDDM. HBa1c is 13.8. On Lantus 18 u HS and insulin sliding scale coverage. Sugars running in the 200-300s. Patient did not get his dose of Lantus last night. Continue sliding scale and administer Lantus tonight. (4) HTN (hypertension) Qualifiers: Hypertension type: essential hypertension Qualified Code(s): I10 - Essential (primary) hypertension Is this a current diagnosis for this admission?: Yes Plan: Blood pressures are running high. Increase lisinopril to 40 mg daily. (5) CKD stage 3 secondary to diabetes Is this a current diagnosis for this admission?: Yes Plan: Creatinine appears to be at baseline, Cr 1.07. Avoid nephrotoxic agents. - Time Time Spent with patient: 25-34 minutes
--- NOTE | 2018-04-18 19:48 | PDOC PROGRESS REPORT ---
Subjective Progress Note for:: 04/18/18 Reason For Visit: DIABETIC FOOT W OSTEOMYOLYSIS Physical Exam Vital Signs: Temp Pulse Resp BP Pulse Ox 99.1 F 79 16 158/68 H 97 04/18/18 12:00 04/18/18 16:11 04/18/18 16:11 04/18/18 12:00 04/18/18 16:11 Intake & Output 04/17/18 04/18/18 04/19/18 06:59 06:59 06:59 Intake Total 1050 5244 1600 Output Total 910 850 Balance 1050 4334 750 Weight 84.4 kg Results Laboratory Results: 04/18/18 05:53 04/18/18 05:53 04/18/18 04/18/18 05:53 05:53 WBC 9.6 RBC 3.85 L Hgb 10.7 L Hct 31.6 L MCV 82 MCH 27.7 MCHC 33.8 RDW 14.6 H Plt Count 388 Seg Neutrophils % Not Reportable Lymphocytes % Not Reportable Monocytes % Not Reportable Eosinophils % Not Reportable Basophils % Not Reportable Absolute Neutrophils Not Reportable Absolute Lymphocytes Not Reportable Absolute Monocytes Not Reportable Absolute Eosinophils Not Reportable Absolute Basophils Not Reportable Sodium 131.1 L Potassium 4.6 Chloride 101 Carbon Dioxide 18 L Anion Gap 12 BUN 19 Creatinine 1.07 Est GFR ( Amer) > 60 Est GFR (Non-Af Amer) > 60 Glucose 381 H Calcium 8.1 L Impressions: Foot X-Ray 04/16/18 19:57 IMPRESSION: Findings suggestive of active osteomyelitis of the base of the 4th metacarpal underlying the soft tissue ulceration. Assessment & Plan - Diagnosis (1) Diabetic foot infection Is this a current diagnosis for this admission?: Yes (2) Osteomyelitis Qualifiers: Osteomyelitis type: other acute Osteomyelitis location: foot Laterality: right Qualified Code(s): M86.171 - Other acute osteomyelitis, right ankle and foot Is this a current diagnosis for this admission?: Yes - Plan Summary Plan Summary: This is a 57-year-old male status post amputation of the fourth toe and metatarsal on the right. I have unpacked and redressed his wound today. There is healthy tissue, without signs of ongoing purulence. The patient will require delayed primary closure versus wound VAC therapy in several days. I will continue to follow the patient very closely with you.
[2018-04-18] MEDS: INSULIN GLARGINE,HUM.REC.ANLOG 300 UNIT/3 ML INSULN.PEN SUBCUT SCH (21:11)
[2018-04-19] MEDS: HEPARIN SOD (PORCINE) 5,000 UNIT/ML 1 ML SYRINGE SUBCUT SCH ×3 (05:09→22:03)
[2018-04-19] MEDS: OXYCODONE-ACETAMINOPHEN 5-325 MG TABLET PO PRN ×3 (06:12→18:36)
[2018-04-19 07:18] LABS: ABSOLUTE BASOPHILS # (AUTO) 0.1 10^3/uL (0.0-0.2); ABSOLUTE EOSINOPHILS # (AUTO) 0.1 10^3/uL (0.0-0.6); ABSOLUTE LYMPHOCYTES (AUTO) 1.3 10^3/uL (0.5-4.7); ABSOLUTE NEUT (AUTO) 8.3 10^3/uL (1.7-8.2); BASOPHILS % (AUTO) 0.7 % (0-2); EOSINOPHILS % (AUTO) 1.3 % (0-6); HEMATOCRIT 31.9 % (37.9-51.0); HEMOGLOBIN 10.8 g/dL (13.5-17.0); LYMPHOCYTES % (AUTO) 12.2 % (13-45); MEAN CORPUSCULAR HEMOGLOBIN 27.5 pg (27.0-33.4); MEAN CORPUSCULAR HGB CONC 33.7 g/dL (32.0-36.0); MEAN CORPUSCULAR VOLUME 81 fl (80-97); MONOCYTES % (AUTO) 9.5 % (3-13); PLATELET COUNT 348 10^3/uL (150-450); RED BLOOD COUNT 3.92 10^6/uL (4.35-5.55); RED CELL DISTRIBUTION WIDTH 14.7 % (11.5-14.0); SEGMENTED NEUTROPHILS % (AUTO) 76.3 % (42-78); TOTAL CELLS COUNTED % (AUTO) 100 %; WHITE BLOOD COUNT 10.9 10^3/uL (4.0-10.5)
[2018-04-19 07:38] LABS: ANION GAP 9 (5-19); BLOOD UREA NITROGEN 15 mg/dL (7-20); CALCIUM 8.3 mg/dL (8.4-10.2); CARBON DIOXIDE 23 mmol/L (22-30); CHLORIDE 105 mmol/L (98-107); GLUCOSE 281 mg/dL (75-110); POTASSIUM 4.3 mmol/L (3.6-5.0); SODIUM 136.8 mmol/L (137-145)
[2018-04-19] MEDS: INSULIN LISPRO 100 UNIT/ML 3 ML VIAL SUBCUT PRN ×3 (07:54→17:55)
[2018-04-19] MEDS: FAMOTIDINE 20 MG TABLET PO SCH (09:31)
[2018-04-19] MEDS: LISINOPRIL 10 MG TABLET PO SCH (09:31)
[2018-04-19] MEDS: DOCUSATE SODIUM 100 MG CAPSULE PO SCH ×2 (09:31→17:57)
[2018-04-19] MEDS: TRAZODONE HCL 50 MG TABLET PO SCH (09:31)
[2018-04-19] MEDS: CEFEPIME 1 GM/D5W RTU 1 GM/50 ML RTUPB IV SCH (09:32)
--- NOTE | 2018-04-19 11:05 | PDOC PROGRESS REPORT ---
Subjective Progress Note for:: 04/19/18 Subjective:: Mr. Mcleod is a 57 year old male with a past medical history of homelessness, anxiety, hypertension, stage III chronic kidney disease, uncontrolled insulin- dependent diabetes, COPD, history of osteomyelitis, peripheral vascular disease S/P 5th toe amputation who presented with increasing right foot pain with purulent drainage. Upon admission, right foot was noted to have multiple necrotic tissues with osteomyelitis on x-ray. He underwent debridement, drainage of foot abscess with amputation of the 4th toe and metatarsal on 04/17/18. No acute event overnight. His pain is well controlled with prn Percocet. No fever or chills. Post-op dressings in place on right foot. Reason For Visit: DIABETIC FOOT W OSTEOMYOLYSIS Physical Exam Vital Signs: Temp Pulse Resp BP Pulse Ox 97.3 F 74 19 165/67 H 99 04/19/18 07:24 04/19/18 09:01 04/19/18 09:01 04/19/18 07:24 04/19/18 09:01 Intake & Output 04/18/18 04/19/18 04/20/18 06:59 06:59 06:59 Intake Total 5244 2300 Output Total 910 850 Balance 4334 1450 Weight 188 lb 11.451 oz General appearance: PRESENT: no acute distress, well-developed, well-nourished Head exam: PRESENT: atraumatic, normocephalic Eye exam: PRESENT: conjunctiva pink, EOMI, PERRLA. ABSENT: scleral icterus Ear exam: PRESENT: normal external ear exam Mouth exam: PRESENT: moist, tongue midline Neck exam: ABSENT: carotid bruit, JVD, lymphadenopathy, thyromegaly Respiratory exam: PRESENT: clear to auscultation manuel. ABSENT: rales, rhonchi, wheezes Cardiovascular exam: PRESENT: RRR. ABSENT: diastolic murmur, rubs, systolic murmur Pulses: PRESENT: normal dorsalis pedis pul GI/Abdominal exam: PRESENT: normal bowel sounds, soft. ABSENT: distended, guarding, mass, organolmegaly, rebound, tenderness Rectal exam: PRESENT: deferred Musculoskeletal exam: PRESENT: other - post op dressing in place Neurological exam: PRESENT: alert, awake, oriented to person, oriented to place , oriented to time, oriented to situation, CN II-XII grossly intact. ABSENT: motor sensory deficit Results Laboratory Results: 04/19/18 06:58 04/19/18 06:58 04/19/18 04/19/18 06:58 06:58 WBC 10.9 H RBC 3.92 L Hgb 10.8 L Hct 31.9 L MCV 81 MCH 27.5 MCHC 33.7 RDW 14.7 H Plt Count 348 Seg Neutrophils % 76.3 Lymphocytes % 12.2 L Monocytes % 9.5 Eosinophils % 1.3 Basophils % 0.7 Absolute Neutrophils 8.3 H Absolute Lymphocytes 1.3 Absolute Monocytes 1.0 Absolute Eosinophils 0.1 Absolute Basophils 0.1 Sodium 136.8 L Potassium 4.3 Chloride 105 Carbon Dioxide 23 Anion Gap 9 BUN 15 Creatinine 1.03 Est GFR ( Amer) > 60 Est GFR (Non-Af Amer) > 60 Glucose 281 H Calcium 8.3 L Impressions: Foot X-Ray 04/16/18 19:57 IMPRESSION: Findings suggestive of active osteomyelitis of the base of the 4th metacarpal underlying the soft tissue ulceration. Assessment & Plan - Diagnosis (1) Osteomyelitis Qualifiers: Osteomyelitis type: other acute Osteomyelitis location: foot Laterality: right Qualified Code(s): M86.171 - Other acute osteomyelitis, right ankle and foot Is this a current diagnosis for this admission?: Yes Plan: S/P Drainage of foot abscess with amputation of the 4th toe and metatarsal 04/17. On vancomycin and cefepime. Blood cultures grew gram positive cocci so far 2/2. Discontinue cefepime. Continue vancomcycin. Surgery is closely following. Planning on possible primary wound closure VS wound vac placement. (2) Bacteremia Is this a current diagnosis for this admission?: Yes Plan: Likely from osteomyelitis. First set of blood cultures grew gram positive cocci so far 2/2. Discontinue cefepime. Continue vancomcycin. (3) Uncontrolled type 2 diabetes mellitus Is this a current diagnosis for this admission?: Yes Plan: Patient has uncontrolled IDDM. HBa1c is 13.8. On Lantus 18 u HS and insulin sliding scale coverage. Sugars running in the 200-300s. He did get his dose of Lantus last night. Continue sliding scale. Increase Lantus from 18 to 23 u HS. (4) HTN (hypertension) Qualifiers: Hypertension type: essential hypertension Qualified Code(s): I10 - Essential (primary) hypertension Is this a current diagnosis for this admission?: Yes Plan: Increased lisinopril to 40 mg daily. (5) CKD stage 3 secondary to diabetes Is this a current diagnosis for this admission?: Yes Plan: Creatinine appears to be at baseline, Cr 1.03. Avoid nephrotoxic agents. - Time Time Spent with patient: 15-24 minutes
[2018-04-19] MEDS: VANCOMYCIN HCL 750 MG in DEXTROSE 5%-WATER 250 ML IV SCH (11:13)
[2018-04-19 12:04] LABS: VANCOMYCIN,TROUGH 10.8 ug/mL (5.0-20.0)
[2018-04-19] MEDS: KETOROLAC TROMETHAMINE INJ/PF 30 MG/1 ML SDV IV PRN (16:59)
[2018-04-19] MEDS: CYCLOBENZAPRINE HCL 10 MG TABLET PO PRN (17:00)
--- NOTE | 2018-04-19 17:33 | PDOC PROGRESS REPORT ---
Subjective Progress Note for:: 04/19/18 Subjective:: Patient has no new complaints Reason For Visit: DIABETIC FOOT W OSTEOMYOLYSIS Physical Exam Vital Signs: Temp Pulse Resp BP Pulse Ox 97.4 F 76 18 172/68 H 99 04/19/18 15:54 04/19/18 15:54 04/19/18 15:54 04/19/18 15:54 04/19/18 15:54 Intake & Output 04/18/18 04/19/18 04/20/18 06:59 06:59 06:59 Intake Total 5244 2300 300 Output Total 910 850 Balance 4334 1450 300 Weight 85.6 kg General appearance: PRESENT: no acute distress Musculoskeletal exam: PRESENT: other - Dressing removed; some macerated tissue around the perimeter of the debridement site; wound cavity clean without foul smell or drainage; some debris. Nothing to debride at this time Results Laboratory Results: 04/19/18 06:58 04/19/18 06:58 04/19/18 04/19/18 06:58 06:58 WBC 10.9 H RBC 3.92 L Hgb 10.8 L Hct 31.9 L MCV 81 MCH 27.5 MCHC 33.7 RDW 14.7 H Plt Count 348 Seg Neutrophils % 76.3 Lymphocytes % 12.2 L Monocytes % 9.5 Eosinophils % 1.3 Basophils % 0.7 Absolute Neutrophils 8.3 H Absolute Lymphocytes 1.3 Absolute Monocytes 1.0 Absolute Eosinophils 0.1 Absolute Basophils 0.1 Sodium 136.8 L Potassium 4.3 Chloride 105 Carbon Dioxide 23 Anion Gap 9 BUN 15 Creatinine 1.03 Est GFR ( Amer) > 60 Est GFR (Non-Af Amer) > 60 Glucose 281 H Calcium 8.3 L Impressions: Foot X-Ray 04/16/18 19:57 IMPRESSION: Findings suggestive of active osteomyelitis of the base of the 4th metacarpal underlying the soft tissue ulceration. Assessment & Plan - Diagnosis (1) Osteomyelitis Qualifiers: Osteomyelitis type: other acute Osteomyelitis location: foot Laterality: right Qualified Code(s): M86.171 - Other acute osteomyelitis, right ankle and foot Is this a current diagnosis for this admission?: Yes Plan: Impression: Patient is postoperative day 2 status post right fourth ray amputation with open wound, with reasonable condition of the drainage site, no indication for further debridement at this time; patient growing a staph aureus from blood cultures on admission Recommendations: 1. Continue intravenous antibiotics 2. Start dressing changes today; discussed with nursing staff 3. Anticipate wound VAC placement tomorrow. 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 insulin use: with terminal block assembler use Diabetes mellitus complication status: with skin complications Diabetes mellitus complication detail: with foot ulcer Qualified Code(s): E11.621 - Type 2 diabetes mellitus with foot ulcer; L97.509 - Non-pressure chronic ulcer of other part of unspecified foot with unspecified severity; L97.509 - Non-pressure chronic ulcer of other part of unspecified foot with unspecified severity; L97.509 - Non-pressure chronic ulcer of other part of unspecified foot with unspecified severity; L97.509 - Non-pressure chronic ulcer of other part of unspecified foot with unspecified severity; Z79.4 - custodial (current) use of insulin; Z79.4 - custodial (current) use of insulin; Z79.4 - custodial (current) use of insulin; Z79.4 - terminal clerk (current ) use of insulin Is this a current diagnosis for this admission?: Yes (4) Acute on chronic renal failure Qualifiers: Chronic kidney disease stage: stage 3 (moderate) Is this a current diagnosis for this admission?: Yes (5) Hyperlipidemia Is this a current diagnosis for this admission?: Yes
[2018-04-19] MEDS ORDERED: INSULIN GLARGINE,HUM.REC.ANLOG 300 UNIT/3 ML INSULN.PEN SUBCUT SCH (22:00)
[2018-04-20] MEDS: VANCOMYCIN HCL 1,000 MG in DEXTROSE 5%-WATER 250 ML IV SCH ×2 (00:11→09:15)
[2018-04-20] MEDS: INSULIN LISPRO 100 UNIT/ML 3 ML VIAL SUBCUT PRN ×5 (00:12→23:31)
[2018-04-20] MEDS: FAMOTIDINE 20 MG TABLET PO SCH ×3 (00:13→22:05)
[2018-04-20] MEDS: TRAZODONE HCL 50 MG TABLET PO SCH ×3 (00:17→22:05)
[2018-04-20] MEDS: HEPARIN SOD (PORCINE) 5,000 UNIT/ML 1 ML SYRINGE SUBCUT SCH ×3 (06:03→22:00)
[2018-04-20] MEDS: OXYCODONE-ACETAMINOPHEN 5-325 MG TABLET PO PRN ×3 (09:13→23:32)
[2018-04-20] MEDS: DOCUSATE SODIUM 100 MG CAPSULE PO SCH ×2 (09:13→17:14)
[2018-04-20] MEDS: LISINOPRIL 10 MG TABLET PO SCH (09:13)
--- NOTE | 2018-04-20 09:29 | PDOC PROGRESS REPORT ---
Subjective Progress Note for:: 04/20/18 Subjective:: Mr. Mcleod is a 57 year old male with who is unfortunately homeless past medical history of, anxiety, hypertension, stage III chronic kidney disease, uncontrolled insulin-dependent diabetes, COPD, PVD and history of osteomyelitis who is status post fifth toe amputation sent to ED complaining of worsening right foot pain with purulent discharge. Upon admission, right foot was noted to have multiple necrotic tissues and positive x-ray for osteomyelitis. He is status post I&D and fourth toe amputation on 04/17/2018. 04/20/2018. No acute events overnight. Patient is comfortably resting in his bed. Asked how he was doing he states that he is having right lower extremity throbbing pain. He is p.o. tolerant and cooperating with physical examination. He denies any fever, chills, nausea, vomiting, diarrhea, constipation, shortness of breath or any urinary symptoms. Reason For Visit: DIABETIC FOOT W OSTEOMYOLYSIS Physical Exam Vital Signs: Temp Pulse Resp BP Pulse Ox 98.4 F 75 16 196/90 H 99 04/20/18 08:00 04/20/18 08:00 04/20/18 08:00 04/20/18 08:00 04/20/18 08:00 Intake & Output 04/19/18 04/20/18 04/21/18 06:59 06:59 06:59 Intake Total 2300 550 Output Total 850 Balance 1450 550 Weight 85.6 kg 85.1 kg General appearance: PRESENT: no acute distress, well-developed, well-nourished Head exam: PRESENT: atraumatic, normocephalic Eye exam: PRESENT: conjunctiva pink, EOMI, PERRLA. ABSENT: scleral icterus Ear exam: PRESENT: normal external ear exam Mouth exam: PRESENT: moist, tongue midline Neck exam: ABSENT: carotid bruit, JVD, lymphadenopathy, thyromegaly Respiratory exam: PRESENT: clear to auscultation manuel. ABSENT: rales, rhonchi, wheezes Cardiovascular exam: PRESENT: RRR. ABSENT: diastolic murmur, rubs, systolic murmur Pulses: PRESENT: normal dorsalis pedis pul Vascular exam: PRESENT: normal capillary refill GI/Abdominal exam: PRESENT: normal bowel sounds, soft. ABSENT: distended, guarding, mass, organolmegaly, rebound, tenderness Rectal exam: PRESENT: deferred Extremities exam: PRESENT: full ROM, +2 edema - Right lower extremity 2+ pitting edema up to mid calf. No tenderness.. ABSENT: calf tenderness, clubbing, pedal edema Neurological exam: PRESENT: alert, awake, oriented to person, oriented to place , oriented to time, oriented to situation, CN II-XII grossly intact. ABSENT: motor sensory deficit Psychiatric exam: PRESENT: appropriate affect, normal mood. ABSENT: homicidal ideation, suicidal ideation Skin exam: PRESENT: dry, intact, warm. ABSENT: cyanosis, rash Results Laboratory Results: 04/19/18 06:58 04/19/18 06:58 Impressions: Foot X-Ray 04/16/18 19:57 IMPRESSION: Findings suggestive of active osteomyelitis of the base of the 4th metacarpal underlying the soft tissue ulceration. Assessment & Plan - Diagnosis (1) Osteomyelitis Qualifiers: Osteomyelitis type: other acute Osteomyelitis location: foot Laterality: right Qualified Code(s): M86.171 - Other acute osteomyelitis, right ankle and foot Is this a current diagnosis for this admission?: Yes Plan: Status post I&D and right fourth ray amputation on 04/17/2018. Blood cultures from 04/16/2018 positive for MSSA. No wound culture available. Pending wound VAC placement by surgery. (2) MSSA bacteremia Is this a current diagnosis for this admission?: Yes Plan: Cultures from 04/16/2008 grew MSSA. Received 3 days of vancomycin and cefepime. Vancomycin and cefepime discontinued on 04/19/2018. Day 1 of clindamycin. (3) Chronic kidney disease, stage 3 (moderate) Is this a current diagnosis for this admission?: Yes Plan: Creatinine and electrolytes within normal limits. Avoid nephrotoxic agents. Optimize diabetes and hypertension treatments. Outpatient nephrology follow-up. (4) HTN (hypertension) Qualifiers: Hypertension type: essential hypertension Qualified Code(s): I10 - Essential (primary) hypertension Is this a current diagnosis for this admission?: Yes Plan: Controlled. Continue lisinopril 40 mg daily. Start amlodipine 5 mg daily. Adjust medications as needed. (5) Hyperlipidemia Is this a current diagnosis for this admission?: Yes Plan: ASCVD 27.3%. Continue high intensity statins. Lifestyle and diet modification. (6) Uncontrolled type 2 diabetes mellitus Is this a current diagnosis for this admission?: Yes Plan: Uncontrolled. A1c on admission 13.8. Blood glucose 281. Increase Lantus to 28 units nightly. Continue pre-meal and sliding scale insulin. Adjust insulin dosage as needed. Diabetic diet. (7) Anemia Is this a current diagnosis for this admission?: Yes Plan: Normocytic. Likely due to combined anemia of CKD and anemia of chronic disease. H&H stable. Supportive transfusion if hemoglobin drops less than 7 or actively bleeding.
--- NOTE | 2018-04-20 13:54 | PDOC PROGRESS REPORT ---
Subjective Progress Note for:: 04/20/18 Subjective:: no pains Reason For Visit: DIABETIC FOOT W OSTEOMYOLYSIS Physical Exam Vital Signs: Temp Pulse Resp BP Pulse Ox 95.5 F L 70 16 136/58 H 100 04/20/18 12:00 04/20/18 12:00 04/20/18 12:00 04/20/18 12:00 04/20/18 12:00 Intake & Output 04/19/18 04/20/18 04/21/18 06:59 06:59 06:59 Intake Total 2300 550 Output Total 850 Balance 1450 550 Weight 85.6 kg 85.1 kg Exam: right foot wound looks clean with granulation tissue Results Laboratory Results: 04/19/18 06:58 04/19/18 06:58 Impressions: Foot X-Ray 04/16/18 19:57 IMPRESSION: Findings suggestive of active osteomyelitis of the base of the 4th metacarpal underlying the soft tissue ulceration. Assessment & Plan - Time Time Spent with patient: 15-24 minutes - Plan Summary Plan Summary: Wound Vac applied to right foot amp site To have changed of VAC dressing q 3 days Continue IV antibiotics
[2018-04-20] MEDS: KETOROLAC TROMETHAMINE INJ/PF 30 MG/1 ML SDV IV PRN (15:15)
[2018-04-20] MEDS: CLINDAMYCIN HCL 150 MG CAPSULE PO SCH ×2 (15:16→22:06)
[2018-04-20] MEDS: CYCLOBENZAPRINE HCL 10 MG TABLET PO PRN (15:16)
[2018-04-20 16:31] LABS: ANION GAP 13 (5-19); BLOOD UREA NITROGEN 16 mg/dL (7-20); CALCIUM 8.6 mg/dL (8.4-10.2); CARBON DIOXIDE 22 mmol/L (22-30); CHLORIDE 103 mmol/L (98-107); GLUCOSE 271 mg/dL (75-110); POTASSIUM 4.4 mmol/L (3.6-5.0); SODIUM 137.7 mmol/L (137-145)
[2018-04-20] MEDS: ATORVASTATIN CALCIUM 40 MG TABLET PO SCH (22:05)
[2018-04-20] MEDS: INSULIN GLARGINE,HUM.REC.ANLOG 300 UNIT/3 ML INSULN.PEN SUBCUT SCH (22:08)
[2018-04-21] MEDS: CLINDAMYCIN HCL 150 MG CAPSULE PO SCH ×3 (05:59→21:26)
[2018-04-21] MEDS: HEPARIN SOD (PORCINE) 5,000 UNIT/ML 1 ML SYRINGE SUBCUT SCH ×3 (05:59→21:20)
[2018-04-21] MEDS: OXYCODONE-ACETAMINOPHEN 5-325 MG TABLET PO PRN ×3 (06:05→21:36)
[2018-04-21 06:43] LABS: ABSOLUTE BASOPHILS # (AUTO) 0.1 10^3/uL (0.0-0.2); ABSOLUTE EOSINOPHILS # (AUTO) 0.2 10^3/uL (0.0-0.6); ABSOLUTE LYMPHOCYTES (AUTO) 1.8 10^3/uL (0.5-4.7); ABSOLUTE NEUT (AUTO) 7.9 10^3/uL (1.7-8.2); BASOPHILS % (AUTO) 0.8 % (0-2); HEMATOCRIT 33.5 % (37.9-51.0); HEMOGLOBIN 11.4 g/dL (13.5-17.0); LYMPHOCYTES % (AUTO) 16.5 % (13-45); MEAN CORPUSCULAR HEMOGLOBIN 27.9 pg (27.0-33.4); MEAN CORPUSCULAR HGB CONC 33.9 g/dL (32.0-36.0); MEAN CORPUSCULAR VOLUME 82 fl (80-97); MONOCYTES % (AUTO) 8.7 % (3-13); PLATELET COUNT 398 10^3/uL (150-450); RED BLOOD COUNT 4.06 10^6/uL (4.35-5.55); RED CELL DISTRIBUTION WIDTH 14.8 % (11.5-14.0); TOTAL CELLS COUNTED % (AUTO) 100 %; WHITE BLOOD COUNT 10.9 10^3/uL (4.0-10.5)
[2018-04-21] MEDS: DOCUSATE SODIUM 100 MG CAPSULE PO SCH ×2 (09:19→16:59)
[2018-04-21] MEDS: LISINOPRIL 10 MG TABLET PO SCH (09:42)
[2018-04-21] MEDS: HYDRALAZINE HCL INJ/PF 20 MG/1 ML SDV IV PRN ×2 (09:43→17:18)
[2018-04-21] MEDS: TRAZODONE HCL 50 MG TABLET PO SCH ×2 (09:43→21:18)
[2018-04-21] MEDS: FAMOTIDINE 20 MG TABLET PO SCH ×2 (09:43→21:17)
[2018-04-21] MEDS: INSULIN LISPRO 100 UNIT/ML 3 ML VIAL SUBCUT PRN ×3 (09:43→21:38)
[2018-04-21] MEDS ORDERED: AMLODIPINE BESYLATE 5 MG TABLET PO SCH ×2 (10:00→11:46)
--- NOTE | 2018-04-21 11:13 | PDOC PROGRESS REPORT ---
Subjective Progress Note for:: 04/21/18 Subjective:: Mr. Mcleod is a 57 year old male with who is unfortunately homeless past medical history of, anxiety, hypertension, stage III chronic kidney disease, uncontrolled insulin-dependent diabetes, COPD, PVD and history of osteomyelitis who is status post fifth toe amputation sent to ED complaining of worsening right foot pain with purulent discharge. Upon admission, right foot was noted to have multiple necrotic tissues and positive x-ray for osteomyelitis. He is status post I&D and fourth toe amputation on 04/17/2018. 04/20/2018. No acute events overnight. Patient is comfortably resting in his bed. Asked how he was doing he states that he is having right lower extremity throbbing pain. He is p.o. tolerant and cooperating with physical examination. He denies any fever, chills, nausea, vomiting, diarrhea, constipation, shortness of breath or any urinary symptoms. 04/21/2018. No acute events overnight. As per nurses report patient has been very compliant with his insulin BP meds. He is refusing his diabetic diet. He has been consistently arguing with the nurse about his Percocet. On my encounter patient is comfortably sitting on his recliner and having his both extremities elevated over the bed. He does not seem to be in any acute distress but he is very argumentative about his Percocet. He wants her Percocet dosage increased because he is not controlling his pain in the left lower extremity. This is stating that he is still having pulsating right foot pain which is only controlled with Percocet. He has been refusing his to take his total of Tylenol. When asked about his diabetic diet he is adamantly refusing to be placed on diabetic diet because it does not taste good. Patient denies any fever, chills, nausea, vomiting, diarrhea, constipation or any urinary symptoms. Reason For Visit: DIABETIC FOOT W OSTEOMYOLYSIS Physical Exam Vital Signs: Temp Pulse Resp BP Pulse Ox 97.9 F 72 15 177/80 H 98 04/21/18 08:16 04/21/18 08:16 04/21/18 08:16 04/21/18 08:16 04/21/18 08:16 Intake & Output 04/20/18 04/21/18 04/22/18 06:59 06:59 06:59 Intake Total 550 1420 237 Output Total 1100 450 Balance 550 320 -213 Weight 85.1 kg 85.2 kg General appearance: PRESENT: no acute distress, well-developed, well-nourished Head exam: PRESENT: atraumatic, normocephalic Eye exam: PRESENT: conjunctiva pink, EOMI, PERRLA. ABSENT: scleral icterus Ear exam: PRESENT: normal external ear exam Mouth exam: PRESENT: moist, tongue midline Neck exam: ABSENT: carotid bruit, JVD, lymphadenopathy, thyromegaly Respiratory exam: PRESENT: clear to auscultation manuel. ABSENT: rales, rhonchi, wheezes Cardiovascular exam: PRESENT: RRR. ABSENT: diastolic murmur, rubs, systolic murmur Pulses: PRESENT: normal dorsalis pedis pul Vascular exam: PRESENT: normal capillary refill GI/Abdominal exam: PRESENT: normal bowel sounds, soft. ABSENT: distended, guarding, mass, organolmegaly, rebound, tenderness Rectal exam: PRESENT: deferred Extremities exam: PRESENT: full ROM. ABSENT: calf tenderness, clubbing, pedal edema Musculoskeletal exam: PRESENT: normal inspection, tenderness, other - Left foot elevated on the bed. Wound VAC in place. Wound looks clean no sign of active discharge or infection. Left lower extremity pitting edema has resolved. Neurological exam: PRESENT: alert, awake, oriented to person, oriented to place , oriented to time, oriented to situation, CN II-XII grossly intact. ABSENT: motor sensory deficit Psychiatric exam: PRESENT: appropriate affect, normal mood. ABSENT: homicidal ideation, suicidal ideation Skin exam: PRESENT: dry, intact, warm. ABSENT: cyanosis, rash Results Laboratory Results: 04/21/18 06:26 04/20/18 15:55 04/20/18 04/21/18 15:55 06:26 WBC 10.9 H RBC 4.06 L Hgb 11.4 L Hct 33.5 L MCV 82 MCH 27.9 MCHC 33.9 RDW 14.8 H Plt Count 398 Seg Neutrophils % 72.0 Lymphocytes % 16.5 Monocytes % 8.7 Eosinophils % 2.0 Basophils % 0.8 Absolute Neutrophils 7.9 Absolute Lymphocytes 1.8 Absolute Monocytes 1.0 Absolute Eosinophils 0.2 Absolute Basophils 0.1 Sodium 137.7 Potassium 4.4 Chloride 103 Carbon Dioxide 22 Anion Gap 13 BUN 16 Creatinine 1.02 Est GFR ( Amer) > 60 Est GFR (Non-Af Amer) > 60 Glucose 271 H Calcium 8.6 Impressions: Foot X-Ray 04/16/18 19:57 IMPRESSION: Findings suggestive of active osteomyelitis of the base of the 4th metacarpal underlying the soft tissue ulceration. Assessment & Plan - Diagnosis (1) Osteomyelitis Qualifiers: Osteomyelitis type: other acute Osteomyelitis location: foot Laterality: right Qualified Code(s): M86.171 - Other acute osteomyelitis, right ankle and foot Is this a current diagnosis for this admission?: Yes Plan: Status post I&D and right fourth ray amputation on 04/17/2018. Blood cultures from 04/16/2018 positive for MSSA. No wound culture available. Wound VAC in place. Surgery following. (2) MSSA bacteremia Is this a current diagnosis for this admission?: Yes Plan: Cultures from 04/16/2008 grew MSSA. Received 3 days of vancomycin and cefepime. Vancomycin and cefepime discontinued on 04/19/2018. Day 2 of clindamycin. Total 5 days of antibiotics. (3) Chronic kidney disease, stage 3 (moderate) Is this a current diagnosis for this admission?: Yes Plan: Creatinine and electrolytes within normal limits. Avoid nephrotoxic agents. Optimize diabetes and hypertension treatments. Outpatient nephrology follow-up. (4) HTN (hypertension) Qualifiers: Hypertension type: essential hypertension Qualified Code(s): I10 - Essential (primary) hypertension Is this a current diagnosis for this admission?: Yes Plan: Uncontrolled. Continue lisinopril 40 mg daily. Increase amlodipine to 10 mg p.o. daily. Hydralazine as needed. Adjust medications as needed. (5) Hyperlipidemia Is this a current diagnosis for this admission?: Yes Plan: ASCVD 27.3%. Continue high intensity statins. Lifestyle and diet modification. (6) Uncontrolled type 2 diabetes mellitus Is this a current diagnosis for this admission?: Yes Plan: Uncontrolled. A1c on admission 13.8. Blood glucose 281. Increase Lantus to 28 units nightly. Continue pre-meal and sliding scale insulin. Adjust insulin dosage as needed. Patient refusing diabetic diet. Patient was extensively counseled on the need for diabetic diet. Consult diabetic education. (7) Anemia Is this a current diagnosis for this admission?: Yes Plan: Normocytic. Likely due to combined anemia of CKD and anemia of chronic disease. H&H stable. Supportive transfusion if hemoglobin drops less than 7 or actively bleeding.
[2018-04-21] MEDS ORDERED: AMLODIPINE BESYLATE 5 MG TABLET PO ONE (11:45)
[2018-04-21] MEDS: OXYCODONE HCL IR 5 MG TABLET PO PRN ×2 (13:06→21:37)
[2018-04-21] MEDS: MAG HYDROX/AL HYDROX/SIMETH SUSP 30 ML UDCUP PO PRN (14:02)
[2018-04-21] MEDS: CARVEDILOL 12.5 MG TABLET PO SCH (17:18)
[2018-04-21] MEDS: ATORVASTATIN CALCIUM 40 MG TABLET PO SCH (21:18)
[2018-04-21] MEDS: INSULIN GLARGINE,HUM.REC.ANLOG 300 UNIT/3 ML INSULN.PEN SUBCUT SCH (21:19)
[2018-04-22 06:03] LABS: ABSOLUTE BASOPHILS # (AUTO) 0.1 10^3/uL (0.0-0.2); ABSOLUTE EOSINOPHILS # (AUTO) 0.2 10^3/uL (0.0-0.6); ABSOLUTE LYMPHOCYTES (AUTO) 2.2 10^3/uL (0.5-4.7); ABSOLUTE MONOCYTES (AUTO) 1.1 10^3/uL (0.1-1.4); ABSOLUTE NEUT (AUTO) 7.7 10^3/uL (1.7-8.2); BASOPHILS % (AUTO) 0.9 % (0-2); EOSINOPHILS % (AUTO) 1.9 % (0-6); HEMATOCRIT 29.2 % (37.9-51.0); HEMOGLOBIN 9.8 g/dL (13.5-17.0); LYMPHOCYTES % (AUTO) 19.2 % (13-45); MEAN CORPUSCULAR HEMOGLOBIN 27.6 pg (27.0-33.4); MEAN CORPUSCULAR HGB CONC 33.5 g/dL (32.0-36.0); MEAN CORPUSCULAR VOLUME 82 fl (80-97); PLATELET COUNT 376 10^3/uL (150-450); RED BLOOD COUNT 3.55 10^6/uL (4.35-5.55); RED CELL DISTRIBUTION WIDTH 14.8 % (11.5-14.0); TOTAL CELLS COUNTED % (AUTO) 100 %; WHITE BLOOD COUNT 11.3 10^3/uL (4.0-10.5)
[2018-04-22] MEDS: OXYCODONE-ACETAMINOPHEN 5-325 MG TABLET PO PRN ×3 (06:24→18:44)
[2018-04-22] MEDS: OXYCODONE HCL IR 5 MG TABLET PO PRN ×3 (06:24→18:43)
[2018-04-22] MEDS: CLINDAMYCIN HCL 150 MG CAPSULE PO SCH (06:30)
[2018-04-22] MEDS: CARVEDILOL 12.5 MG TABLET PO SCH ×2 (06:30→18:43)
[2018-04-22] MEDS: HEPARIN SOD (PORCINE) 5,000 UNIT/ML 1 ML SYRINGE SUBCUT SCH ×3 (06:31→21:57)
[2018-04-22 06:36] LABS: ALANINE AMINOTRANSFERASE 10 U/L (21-72); ALBUMIN 2.7 g/dL (3.5-5.0); ALKALINE PHOSPHATASE 85 U/L (38-126); ANION GAP 12 (5-19); ASPARTATE AMINO TRANSFERASE 13 U/L (17-59); BILIRUBIN,DIRECT 0.1 mg/dL (0.0-0.4); BILIRUBIN,TOTAL 0.3 mg/dL (0.2-1.3); BLOOD UREA NITROGEN 21 mg/dL (7-20); CALCIUM 8.4 mg/dL (8.4-10.2); CARBON DIOXIDE 22 mmol/L (22-30); CHLORIDE 104 mmol/L (98-107); GLUCOSE 222 mg/dL (75-110); SODIUM 137.6 mmol/L (137-145); TOTAL PROTEIN 6.7 g/dL (6.3-8.2)
[2018-04-22] MEDS ORDERED: VANCOMYCIN HCL 0 MG in DEXTROSE 5%-WATER 250 ML IV NR (08:00)
[2018-04-22] MEDS: AMLODIPINE BESYLATE 10 MG TABLET PO SCH (10:17)
[2018-04-22] MEDS: LISINOPRIL 10 MG TABLET PO SCH (10:17)
[2018-04-22] MEDS: FAMOTIDINE 20 MG TABLET PO SCH ×2 (10:17→21:57)
[2018-04-22] MEDS: TRAZODONE HCL 50 MG TABLET PO SCH ×2 (10:17→22:00)
[2018-04-22] MEDS: DOCUSATE SODIUM 100 MG CAPSULE PO SCH ×2 (10:17→19:31)
[2018-04-22] MEDS: VANCOMYCIN HCL 1,000 MG in DEXTROSE 5%-WATER 250 ML IV SCH ×2 (10:18→21:53)
[2018-04-22] MEDS: INSULIN LISPRO 100 UNIT/ML 3 ML VIAL SUBCUT PRN ×2 (10:18→12:37)
[2018-04-22] MEDS: INSULIN LISPRO 100 UNIT/ML 3 ML VIAL SUBCUT SCH ×2 (12:37→16:57)
--- NOTE | 2018-04-22 16:28 | PDOC PROGRESS REPORT ---
Subjective Progress Note for:: 04/22/18 Subjective:: Mr. Mcleod is a 57 year old male with who is unfortunately homeless past medical history of, anxiety, hypertension, stage III chronic kidney disease, uncontrolled insulin-dependent diabetes, COPD, PVD and history of osteomyelitis who is status post fifth toe amputation sent to ED complaining of worsening right foot pain with purulent discharge. Upon admission, right foot was noted to have multiple necrotic tissues and positive x-ray for osteomyelitis. He is status post I&D and fourth toe amputation on 04/17/2018. 04/20/2018. No acute events overnight. Patient is comfortably resting in his bed. Asked how he was doing he states that he is having right lower extremity throbbing pain. He is p.o. tolerant and cooperating with physical examination. He denies any fever, chills, nausea, vomiting, diarrhea, constipation, shortness of breath or any urinary symptoms. 04/21/2018. No acute events overnight. As per nurses report patient has been very compliant with his insulin BP meds. He is refusing his diabetic diet. He has been consistently arguing with the nurse about his Percocet. On my encounter patient is comfortably sitting on his recliner and having his both extremities elevated over the bed. He does not seem to be in any acute distress but he is very argumentative about his Percocet. He wants her Percocet dosage increased because he is not controlling his pain in the left lower extremity. This is stating that he is still having pulsating right foot pain which is only controlled with Percocet. He has been refusing his to take his total of Tylenol. When asked about his diabetic diet he is adamantly refusing to be placed on diabetic diet because it does not taste good. Patient denies any fever, chills, nausea, vomiting, diarrhea, constipation or any urinary symptoms. 04/22/2018. My encounter patient is sitting in his recliner having both legs elevated very pleasant and cooperative and seems to be very satisfied with the amount of pain management that he is receiving. He also had a conversation with fermenter about his diabetes and now has decided to go try diabetic diet. Denies any fever, chills, nausea, vomiting, chest pain, shortness of breath, constipation or any urinary symptoms. Reason For Visit: DIABETIC FOOT W OSTEOMYOLYSIS Physical Exam Vital Signs: Temp Pulse Resp BP Pulse Ox 98.2 F 71 15 162/75 H 98 04/22/18 07:25 04/22/18 07:25 04/22/18 07:25 04/22/18 07:25 04/22/18 07:25 Intake & Output 04/21/18 04/22/18 04/23/18 06:59 06:59 06:59 Intake Total 1420 1800 250 Output Total 1100 900 Balance 320 900 250 Weight 85.2 kg 85.2 kg General appearance: PRESENT: no acute distress, well-developed, well-nourished Head exam: PRESENT: atraumatic, normocephalic Eye exam: PRESENT: conjunctiva pink, EOMI, PERRLA. ABSENT: scleral icterus Ear exam: PRESENT: normal external ear exam Mouth exam: PRESENT: moist, tongue midline Neck exam: ABSENT: carotid bruit, JVD, lymphadenopathy, thyromegaly Respiratory exam: PRESENT: clear to auscultation manuel. ABSENT: rales, rhonchi, wheezes Cardiovascular exam: PRESENT: RRR. ABSENT: diastolic murmur, rubs, systolic murmur Pulses: PRESENT: normal dorsalis pedis pul Vascular exam: PRESENT: normal capillary refill GI/Abdominal exam: PRESENT: normal bowel sounds, soft. ABSENT: distended, guarding, mass, organolmegaly, rebound, tenderness Rectal exam: PRESENT: deferred Extremities exam: PRESENT: full ROM. ABSENT: calf tenderness, clubbing, pedal edema Musculoskeletal exam: PRESENT: other - Left foot status post first metatarsal ray resection. Wound VAC in place. Swelling has improved no signs of erythema or active infection. Neurological exam: PRESENT: alert, awake, oriented to person, oriented to place , oriented to time, oriented to situation, CN II-XII grossly intact. ABSENT: motor sensory deficit Psychiatric exam: PRESENT: appropriate affect, normal mood. ABSENT: homicidal ideation, suicidal ideation Skin exam: PRESENT: dry, intact, warm. ABSENT: cyanosis, rash Results Laboratory Results: 04/22/18 05:11 04/22/18 05:11 04/22/18 04/22/18 05:11 05:11 WBC 11.3 H RBC 3.55 L Hgb 9.8 L Hct 29.2 L MCV 82 MCH 27.6 MCHC 33.5 RDW 14.8 H Plt Count 376 Seg Neutrophils % 68.0 Lymphocytes % 19.2 Monocytes % 10.0 Eosinophils % 1.9 Basophils % 0.9 Absolute Neutrophils 7.7 Absolute Lymphocytes 2.2 Absolute Monocytes 1.1 Absolute Eosinophils 0.2 Absolute Basophils 0.1 Sodium 137.6 Potassium 5.0 Chloride 104 Carbon Dioxide 22 Anion Gap 12 BUN 21 H Creatinine 1.23 Est GFR ( Amer) > 60 Est GFR (Non-Af Amer) > 60 Glucose 222 H Calcium 8.4 Total Bilirubin 0.3 AST 13 L ALT 10 L Alkaline Phosphatase 85 Total Protein 6.7 Albumin 2.7 L 04/18/18 14:48 Blood Blood Culture - Final Staphylococcus Aureus Impressions: Foot X-Ray 04/16/18 19:57 IMPRESSION: Findings suggestive of active osteomyelitis of the base of the 4th metacarpal underlying the soft tissue ulceration. Assessment & Plan - Diagnosis (1) Osteomyelitis Qualifiers: Osteomyelitis type: other acute Osteomyelitis location: foot Laterality: right Qualified Code(s): M86.171 - Other acute osteomyelitis, right ankle and foot Is this a current diagnosis for this admission?: Yes Plan: Status post I&D and right foot ray amputation on 04/17/2018. Blood cultures from 04/16/2018 positive for MSSA. No wound culture available. Wound VAC in place. Surgery following. (2) MSSA bacteremia Is this a current diagnosis for this admission?: Yes Plan: Cultures from 04/16/2008 grew MSSA. Received 3 days of vancomycin and cefepime. Vancomycin and cefepime discontinued on 04/19/2018 but restarted today as patient is growing another gram-positive cocci in his blood. Chief 2 days of clindamycin. Total 6 days of antibiotics. (3) Chronic kidney disease, stage 3 (moderate) Is this a current diagnosis for this admission?: Yes Plan: Creatinine and electrolytes within normal limits. Avoid nephrotoxic agents. Optimize diabetes and hypertension treatments. Outpatient nephrology follow-up. (4) HTN (hypertension) Qualifiers: Hypertension type: essential hypertension Qualified Code(s): I10 - Essential (primary) hypertension Is this a current diagnosis for this admission?: Yes Plan: Uncontrolled. Continue lisinopril 40 mg daily. Increase amlodipine to 10 mg p.o. daily. Hydralazine as needed. Adjust medications as needed. (5) Hyperlipidemia Is this a current diagnosis for this admission?: Yes Plan: ASCVD 27.3%. Continue high intensity statins. Lifestyle and diet modification. (6) Uncontrolled type 2 diabetes mellitus Is this a current diagnosis for this admission?: Yes Plan: Uncontrolled. A1c on admission 13.8. Blood glucose 281. Increase Lantus to 33 units nightly. Pre-meal 6 units. Continue sliding scale. Adjust insulin dosage as needed. Patient refusing diabetic diet. Patient was extensively counseled on the need for diabetic diet. Consult diabetic education. (7) Anemia Is this a current diagnosis for this admission?: Yes Plan: Normocytic. Likely due to combined anemia of CKD and anemia of chronic disease. H&H stable. Supportive transfusion if hemoglobin drops less than 7 or actively bleeding.
[2018-04-22] MEDS ORDERED: INSULIN GLARGINE,HUM.REC.ANLOG 1,000 UNIT/10 ML UNIT SUBCUT ONE (21:29)
[2018-04-22] MEDS: ATORVASTATIN CALCIUM 40 MG TABLET PO SCH (21:57)
[2018-04-22] MEDS: INSULIN GLARGINE,HUM.REC.ANLOG 300 UNIT/3 ML INSULN.PEN SUBCUT SCH (21:59)
[2018-04-23 06:21] LABS: ABSOLUTE BASOPHILS # (AUTO) 0.1 10^3/uL (0.0-0.2); ABSOLUTE EOSINOPHILS # (AUTO) 0.2 10^3/uL (0.0-0.6); ABSOLUTE LYMPHOCYTES (AUTO) 2.4 10^3/uL (0.5-4.7); BASOPHILS % (AUTO) 1.2 % (0-2); EOSINOPHILS % (AUTO) 2.3 % (0-6); HEMATOCRIT 28.8 % (37.9-51.0); HEMOGLOBIN 9.7 g/dL (13.5-17.0); LYMPHOCYTES % (AUTO) 22.2 % (13-45); MEAN CORPUSCULAR HEMOGLOBIN 27.8 pg (27.0-33.4); MEAN CORPUSCULAR HGB CONC 33.6 g/dL (32.0-36.0); MEAN CORPUSCULAR VOLUME 83 fl (80-97); MONOCYTES % (AUTO) 9.2 % (3-13); PLATELET COUNT 356 10^3/uL (150-450); RED BLOOD COUNT 3.49 10^6/uL (4.35-5.55); RED CELL DISTRIBUTION WIDTH 15.2 % (11.5-14.0); SEGMENTED NEUTROPHILS % (AUTO) 65.1 % (42-78); TOTAL CELLS COUNTED % (AUTO) 100 %; WHITE BLOOD COUNT 10.8 10^3/uL (4.0-10.5)
[2018-04-23 06:38] LABS: ALANINE AMINOTRANSFERASE 14 U/L (21-72); ALBUMIN 2.7 g/dL (3.5-5.0); ALKALINE PHOSPHATASE 94 U/L (38-126); ANION GAP 12 (5-19); ASPARTATE AMINO TRANSFERASE 16 U/L (17-59); BILIRUBIN,DIRECT 0.1 mg/dL (0.0-0.4); BILIRUBIN,TOTAL 0.2 mg/dL (0.2-1.3); BLOOD UREA NITROGEN 22 mg/dL (7-20); CALCIUM 8.6 mg/dL (8.4-10.2); CARBON DIOXIDE 22 mmol/L (22-30); CHLORIDE 104 mmol/L (98-107); GLUCOSE 232 mg/dL (75-110); TOTAL PROTEIN 6.8 g/dL (6.3-8.2)
[2018-04-23 06:46] LABS: POTASSIUM 5.2 mmol/L (3.6-5.0)
[2018-04-23] MEDS: HEPARIN SOD (PORCINE) 5,000 UNIT/ML 1 ML SYRINGE SUBCUT SCH ×3 (06:48→22:01)
[2018-04-23] MEDS: CARVEDILOL 12.5 MG TABLET PO SCH ×2 (06:50→17:16)
[2018-04-23] MEDS ORDERED: CARVEDILOL 12.5 MG TABLET PO ONE (08:00)
[2018-04-23] MEDS: INSULIN LISPRO 100 UNIT/ML 3 ML VIAL SUBCUT SCH ×3 (08:39→17:08)
[2018-04-23] MEDS: INSULIN LISPRO 100 UNIT/ML 3 ML VIAL SUBCUT PRN ×3 (08:39→22:05)
[2018-04-23] MEDS: OXYCODONE HCL IR 5 MG TABLET PO PRN ×2 (08:51→18:12)
[2018-04-23] MEDS: OXYCODONE-ACETAMINOPHEN 5-325 MG TABLET PO PRN ×2 (08:51→18:12)
[2018-04-23] MEDS: AMLODIPINE BESYLATE 10 MG TABLET PO SCH (09:04)
[2018-04-23] MEDS: FAMOTIDINE 20 MG TABLET PO SCH ×2 (09:04→22:00)
[2018-04-23] MEDS: TRAZODONE HCL 50 MG TABLET PO SCH ×2 (09:04→22:00)
[2018-04-23] MEDS: DOCUSATE SODIUM 100 MG CAPSULE PO SCH ×2 (09:04→17:14)
[2018-04-23] MEDS: LISINOPRIL 10 MG TABLET PO SCH (09:05)
[2018-04-23] MEDS: VANCOMYCIN HCL 1,000 MG in DEXTROSE 5%-WATER 250 ML IV SCH ×2 (09:11→22:08)
--- NOTE | 2018-04-23 10:40 | PDOC PROGRESS REPORT ---
Subjective Progress Note for:: 04/23/18 Subjective:: Mr. Mcleod is a 57 year old male with who is unfortunately homeless past medical history of, anxiety, hypertension, stage III chronic kidney disease, uncontrolled insulin-dependent diabetes, COPD, PVD and history of osteomyelitis who is status post fifth toe amputation sent to ED complaining of worsening right foot pain with purulent discharge. Upon admission, right foot was noted to have multiple necrotic tissues and positive x-ray for osteomyelitis. He is status post I&D and fourth toe amputation on 04/17/2018. 04/20/2018. No acute events overnight. Patient is comfortably resting in his bed. Asked how he was doing he states that he is having right lower extremity throbbing pain. He is p.o. tolerant and cooperating with physical examination. He denies any fever, chills, nausea, vomiting, diarrhea, constipation, shortness of breath or any urinary symptoms. 04/21/2018. No acute events overnight. As per nurses report patient has been very compliant with his insulin BP meds. He is refusing his diabetic diet. He has been consistently arguing with the nurse about his Percocet. On my encounter patient is comfortably sitting on his recliner and having his both extremities elevated over the bed. He does not seem to be in any acute distress but he is very argumentative about his Percocet. He wants her Percocet dosage increased because he is not controlling his pain in the left lower extremity. This is stating that he is still having pulsating right foot pain which is only controlled with Percocet. He has been refusing his to take his total of Tylenol. When asked about his diabetic diet he is adamantly refusing to be placed on diabetic diet because it does not taste good. Patient denies any fever, chills, nausea, vomiting, diarrhea, constipation or any urinary symptoms. 04/22/2018. My encounter patient is sitting in his recliner having both legs elevated very pleasant and cooperative and seems to be very satisfied with the amount of pain management that he is receiving. He also had a conversation with technical administrative assistant about his diabetes and now has decided to go try diabetic diet. Denies any fever, chills, nausea, vomiting, chest pain, shortness of breath, constipation or any urinary symptoms. 04/23/2018. On my encounter patient is resting comfortably in his recliner elevating bilateral legs. Stating that he is feeling much better and happy with the amount of opioid narcotics that he is receiving for his foot pain. He is not very happy about being discharged stating that he has no place to go. He denies fever, nausea, vomiting, diarrhea, constipation or any urinary symptoms. Still not very compliant with his diabetic diet. Reason For Visit: DIABETIC FOOT W OSTEOMYOLYSIS Physical Exam Vital Signs: Temp Pulse Resp BP Pulse Ox 98.2 F 65 16 167/73 H 96 04/23/18 08:54 04/23/18 08:54 04/23/18 08:54 04/23/18 08:54 04/23/18 08:54 Intake & Output 04/22/18 04/23/18 04/24/18 06:59 06:59 06:59 Intake Total 1800 1416 Output Total 900 Balance 900 1416 Weight 85.2 kg 86.4 kg General appearance: PRESENT: no acute distress, well-developed, well-nourished Respiratory exam: PRESENT: clear to auscultation manuel. ABSENT: rales, rhonchi, wheezes Cardiovascular exam: PRESENT: RRR. ABSENT: diastolic murmur, rubs, systolic murmur GI/Abdominal exam: PRESENT: normal bowel sounds, soft. ABSENT: distended, guarding, mass, organolmegaly, rebound, tenderness Extremities exam: PRESENT: other - Left foot status post ray resection of first metatarsal. Wound VAC in place, wound looks clean, swelling has improved. Results Laboratory Results: 04/23/18 05:46 04/23/18 05:46 04/23/18 04/23/18 05:46 05:46 WBC 10.8 H RBC 3.49 L Hgb 9.7 L Hct 28.8 L MCV 83 MCH 27.8 MCHC 33.6 RDW 15.2 H Plt Count 356 Seg Neutrophils % 65.1 Lymphocytes % 22.2 Monocytes % 9.2 Eosinophils % 2.3 Basophils % 1.2 Absolute Neutrophils 7.0 Absolute Lymphocytes 2.4 Absolute Monocytes 1.0 Absolute Eosinophils 0.2 Absolute Basophils 0.1 Sodium 138.0 Potassium 5.2 H Chloride 104 Carbon Dioxide 22 Anion Gap 12 BUN 22 H Creatinine 1.25 Est GFR ( Amer) > 60 Est GFR (Non-Af Amer) 59 L Glucose 232 H Calcium 8.6 Magnesium 2.3 Total Bilirubin 0.2 AST 16 L ALT 14 L Alkaline Phosphatase 94 Total Protein 6.8 Albumin 2.7 L Impressions: Foot X-Ray 04/16/18 19:57 IMPRESSION: Findings suggestive of active osteomyelitis of the base of the 4th metacarpal underlying the soft tissue ulceration. Assessment & Plan - Diagnosis (1) Osteomyelitis Qualifiers: Osteomyelitis type: other acute Osteomyelitis location: foot Laterality: right Qualified Code(s): M86.171 - Other acute osteomyelitis, right ankle and foot Is this a current diagnosis for this admission?: Yes Plan: Status post I&D and right foot ray amputation on 04/17/2018. Postoperative day 7 Blood cultures from 04/16/2018 positive for MSSA. Blood cultures from 2017 growing gram-positive cocci's. Pending sensitivity No wound culture available. Wound VAC in place. Surgery following. (2) MSSA bacteremia Is this a current diagnosis for this admission?: Yes Plan: Cultures from 04/16/2008 grew MSSA. Received 3 days of vancomycin and cefepime. Vancomycin and cefepime discontinued on 04/19/2018 but restarted today as patient is growing another gram-positive cocci in his blood. Chief 2 days of clindamycin. Total 7 days of antibiotics. (3) Chronic kidney disease, stage 3 (moderate) Is this a current diagnosis for this admission?: Yes Plan: Creatinine and electrolytes within normal limits. Avoid nephrotoxic agents. Optimize diabetes and hypertension treatments. Outpatient nephrology follow-up. (4) HTN (hypertension) Qualifiers: Hypertension type: essential hypertension Qualified Code(s): I10 - Essential (primary) hypertension Is this a current diagnosis for this admission?: Yes Plan: Uncontrolled. DC lisinopril due to hyperkalemia. Continue carvedilol 25 twice daily, amlodipine 10 mg p.o. and hydralazine 25 twice daily. Hydralazine as needed. Adjust medications as needed. (5) Hyperlipidemia Is this a current diagnosis for this admission?: Yes Plan: ASCVD 27.3%. Continue high intensity statins. Lifestyle and diet modification. (6) Uncontrolled type 2 diabetes mellitus Is this a current diagnosis for this admission?: Yes Plan: Uncontrolled. Patient noncompliant with diabetic diet. A1c on admission 13.8. Increase Lantus to 33 units nightly. Pre-meal 6 units. Continue sliding scale. Adjust insulin dosage as needed. Patient was extensively counseled on the need for diabetic diet. Consult diabetic education. (7) Anemia Is this a current diagnosis for this admission?: Yes Plan: Normocytic. Likely due to combined anemia of CKD and anemia of chronic disease. H&H stable. Supportive transfusion if hemoglobin drops less than 7 or actively bleeding. (8) Hyperkalemia Is this a current diagnosis for this admission?: Yes Plan: Potassium 5.2. Hold lisinopril. Started on hyperkalemia protocol. BMP tomorrow.
[2018-04-23] MEDS ORDERED: CALCIUM GLUCONATE 1,000 MG in DEXTROSE 5%-WATER 50 ML IV ONE (10:42)
[2018-04-23] MEDS ORDERED: CALCIUM GLUCONATE 1000 MG/10 ML INJ IV ONE (11:30)
[2018-04-23] MEDS ORDERED: ALBUTEROL SULFATE 0.083% NEB 2.5 MG/3 ML AMPUL NEB ONE (11:30)
[2018-04-23] MEDS ORDERED: DEXTROSE 50%-WATER 25 GM/50 ML DISP.SYRIN IV ONE (11:30)
[2018-04-23] MEDS ORDERED: SODIUM POLYSTYRENE SULFONATE 15 GM/60 ML PO ONE (11:30)
[2018-04-23] MEDS ORDERED: INSULIN REG, HUMAN 100 UNIT/ML 3 ML VIAL (PYX) IV ONE (11:30)
--- NOTE | 2018-04-23 12:40 | EKG REPORT ---
SEVERITY:- NORMAL ECG - SINUS RHYTHM : Confirmed by: Martha Thomas MD 23-Apr-2018 12:39:21
--- NOTE | 2018-04-23 14:49 | RADIOLOGY REPORT (SQ) ---
EXAM DESCRIPTION: PICC INSERTION; FLUORO/CV PLACEMENT; U/S GUIDE FOR VASCULAR ACCESS COMPLETED DATE/TIME: 04/23/2018 2:16 pm; 04/23/2018 2:17 pm REASON FOR STUDY: NO IV ACCESS; NEED IV ACCESS COMPARISON: None. FLUOROSCOPY TIME: 50 seconds 3 images saved to PACS. TECHNIQUE: Fluoroscopic and ultrasound guided PICC placement. LIMITATIONS: None. PROCEDURE: After written consent and assessment were obtained, the patient was brought into the fluo roscopy room and placed supine on the table. Ultrasound evaluation of potential access sites were per formed. After successfully identifying a patent right basilic vein, the right arm was prepped and carina ped in a sterile fashion along with the ultrasound probe. The entry site was anesthetized with 1% lid ocaine. A 21 gauge 7 cm needle was advanced through the skin and into the basilic vein under live ult rasound guidance. An ultrasound image was saved to PACS confirming access site. A .018 guide wire w as then inserted through the needle and into the venous system. The needle was then removed and an 11 blade scalpel was used to make a 1cm skin incision. A 5 fr peel-away sheath was advanced over the w flako and into the venous system. A measurement was then made using the existing wire and live fluorosc opic guidance. The wire was then removed and trimmed. The PICC was advanced through the peel-away she ath and into the venous system. The peel-away sheath was removed and the catheter was adhered to the patients arm with a stat lock. The catheter was then aspirated and flushed and a sterile bandage was placed over the access site. A fluoroscopic spot image was saved to PACS confirming the catheter tip within the superior vena cava. IMPRESSION: SUCCESSFUL PLACEMENT OF A 5 FR DUAL LUMEN 37 CM PICC IN THE RIGHT BASILIC VEIN. COMMENT: Patient medication list reviewed: Yes- Quality ID# [id number]:Eligible professional attests to doc umenting in the medical record they obtained, updated, or reviewed the patient's current medications. . Quality ID 145: Final reports for procedures using fluoroscopy that document radiation exposure han loi, or exposure time and number of fluorographic images (if radiation exposure indices are not avail able) Quality ID #76: The patient was prepped and draped using maximum sterile barrier technique including cap, mask, sterile gown, sterile gloves, a large sterile sheet, hand hygiene, and 2% Chlorhexidine fo r cutaneous antisepsis. When ultrasound is used, sterile ultrasound techniques are followed requiring sterile gel and sterile probes. TECHNICAL DOCUMENTATION: JOB ID: [id number] [employer]- All Rights Reserved rev-11/06 Reading location - IP/workstation name: [email or web address]
--- NOTE | 2018-04-23 14:49 | RADIOLOGY REPORT (SQ) ---
EXAM DESCRIPTION: PICC INSERTION; FLUORO/CV PLACEMENT; U/S GUIDE FOR VASCULAR ACCESS COMPLETED DATE/TIME: 04/23/2018 2:16 pm; 04/23/2018 2:17 pm REASON FOR STUDY: NO IV ACCESS; NEED IV ACCESS COMPARISON: None. FLUOROSCOPY TIME: 50 seconds 3 images saved to PACS. TECHNIQUE: Fluoroscopic and ultrasound guided PICC placement. LIMITATIONS: None. PROCEDURE: After written consent and assessment were obtained, the patient was brought into the fluo roscopy room and placed supine on the table. Ultrasound evaluation of potential access sites were per formed. After successfully identifying a patent right basilic vein, the right arm was prepped and carina ped in a sterile fashion along with the ultrasound probe. The entry site was anesthetized with 1% lid ocaine. A 21 gauge 7 cm needle was advanced through the skin and into the basilic vein under live ult rasound guidance. An ultrasound image was saved to PACS confirming access site. A .018 guide wire w as then inserted through the needle and into the venous system. The needle was then removed and an 11 blade scalpel was used to make a 1cm skin incision. A 5 fr peel-away sheath was advanced over the w flako and into the venous system. A measurement was then made using the existing wire and live fluorosc opic guidance. The wire was then removed and trimmed. The PICC was advanced through the peel-away she ath and into the venous system. The peel-away sheath was removed and the catheter was adhered to the patients arm with a stat lock. The catheter was then aspirated and flushed and a sterile bandage was placed over the access site. A fluoroscopic spot image was saved to PACS confirming the catheter tip within the superior vena cava. IMPRESSION: SUCCESSFUL PLACEMENT OF A 5 FR DUAL LUMEN 37 CM PICC IN THE RIGHT BASILIC VEIN. COMMENT: Patient medication list reviewed: Yes- Quality ID# [id number]:Eligible professional attests to doc umenting in the medical record they obtained, updated, or reviewed the patient's current medications. . Quality ID 145: Final reports for procedures using fluoroscopy that document radiation exposure ahn loi, or exposure time and number of fluorographic images (if radiation exposure indices are not avail able) Quality ID #76: The patient was prepped and draped using maximum sterile barrier technique including cap, mask, sterile gown, sterile gloves, a large sterile sheet, hand hygiene, and 2% Chlorhexidine fo r cutaneous antisepsis. When ultrasound is used, sterile ultrasound techniques are followed requiring sterile gel and sterile probes. TECHNICAL DOCUMENTATION: JOB ID: [id number] [employer]- All Rights Reserved rev-11/06 Reading location - IP/workstation name: [email or web address]
[2018-04-23] MEDS ORDERED: NORMAL SALINE 10 ML SDV (AFTER EACH USE) IV PRN (15:14)
[2018-04-23] MEDS ORDERED: ONDANSETRON HCL INJ/PF 4 MG/2 ML SDV IV PRN (15:47)
[2018-04-23] MEDS ORDERED: ONDANSETRON HCL INJ/PF 4 MG/2 ML SDV ONE (15:48)
[2018-04-23] MEDS: INSULIN GLARGINE,HUM.REC.ANLOG 300 UNIT/3 ML INSULN.PEN SUBCUT SCH (21:59)
[2018-04-23] MEDS: HYDRALAZINE HCL 25 MG TABLET PO SCH (22:00)
[2018-04-23] MEDS: ATORVASTATIN CALCIUM 40 MG TABLET PO SCH (22:01)
[2018-04-23] MEDS: NORMAL SALINE 10 ML SDV (SCHEDULED) IV SCH (22:08)
[2018-04-24] MEDS: OXYCODONE HCL IR 5 MG TABLET PO PRN ×3 (00:15→16:28)
[2018-04-24] MEDS: OXYCODONE-ACETAMINOPHEN 5-325 MG TABLET PO PRN ×3 (00:16→16:27)
[2018-04-24] MEDS: CARVEDILOL 12.5 MG TABLET PO SCH ×2 (06:42→17:38)
[2018-04-24 06:43] LABS: ABSOLUTE EOSINOPHILS # (AUTO) 0.2 10^3/uL (0.0-0.6); ABSOLUTE MONOCYTES (AUTO) 0.8 10^3/uL (0.1-1.4); ABSOLUTE NEUT (AUTO) 6.1 10^3/uL (1.7-8.2); BASOPHILS % (AUTO) 0.3 % (0-2); EOSINOPHILS % (AUTO) 2.4 % (0-6); HEMATOCRIT 28.5 % (37.9-51.0); HEMOGLOBIN 9.7 g/dL (13.5-17.0); MEAN CORPUSCULAR HEMOGLOBIN 28.2 pg (27.0-33.4); MEAN CORPUSCULAR HGB CONC 34.1 g/dL (32.0-36.0); MEAN CORPUSCULAR VOLUME 83 fl (80-97); PLATELET COUNT 383 10^3/uL (150-450); RED BLOOD COUNT 3.45 10^6/uL (4.35-5.55); RED CELL DISTRIBUTION WIDTH 15.1 % (11.5-14.0); SEGMENTED NEUTROPHILS % (AUTO) 66.3 % (42-78); TOTAL CELLS COUNTED % (AUTO) 100 %; WHITE BLOOD COUNT 9.2 10^3/uL (4.0-10.5)
[2018-04-24] MEDS: HEPARIN SOD (PORCINE) 5,000 UNIT/ML 1 ML SYRINGE SUBCUT SCH ×3 (06:46→22:42)
[2018-04-24 07:08] LABS: ALANINE AMINOTRANSFERASE 13 U/L (21-72); ALBUMIN 2.8 g/dL (3.5-5.0); ALKALINE PHOSPHATASE 95 U/L (38-126); ANION GAP 10 (5-19); ASPARTATE AMINO TRANSFERASE 17 U/L (17-59); BILIRUBIN,DIRECT 0.2 mg/dL (0.0-0.4); BILIRUBIN,TOTAL 0.3 mg/dL (0.2-1.3); BLOOD UREA NITROGEN 21 mg/dL (7-20); CALCIUM 8.6 mg/dL (8.4-10.2); CARBON DIOXIDE 27 mmol/L (22-30); CHLORIDE 102 mmol/L (98-107); GLUCOSE 225 mg/dL (75-110); POTASSIUM 4.7 mmol/L (3.6-5.0); SODIUM 139.3 mmol/L (137-145); TOTAL PROTEIN 6.9 g/dL (6.3-8.2)
[2018-04-24] MEDS: INSULIN LISPRO 100 UNIT/ML 3 ML VIAL SUBCUT SCH ×3 (08:00→16:34)
[2018-04-24] MEDS: INSULIN LISPRO 100 UNIT/ML 3 ML VIAL SUBCUT PRN ×2 (08:00→12:32)
[2018-04-24] MEDS: FAMOTIDINE 20 MG TABLET PO SCH ×2 (10:05→22:38)
[2018-04-24] MEDS: HYDRALAZINE HCL 25 MG TABLET PO SCH ×2 (10:05→22:43)
[2018-04-24] MEDS: TRAZODONE HCL 50 MG TABLET PO SCH ×2 (10:05→22:42)
[2018-04-24] MEDS: AMLODIPINE BESYLATE 10 MG TABLET PO SCH (10:05)
[2018-04-24] MEDS: DOCUSATE SODIUM 100 MG CAPSULE PO SCH ×2 (10:05→17:37)
[2018-04-24] MEDS: VANCOMYCIN HCL 1,000 MG in DEXTROSE 5%-WATER 250 ML IV SCH (10:14)
[2018-04-24] MEDS: NORMAL SALINE 10 ML SDV (SCHEDULED) IV SCH ×2 (10:15→22:41)
[2018-04-24] MEDS ORDERED: MAGNESIUM CITRATE 296 ML BOTTLE PO ONE (11:00)
[2018-04-24 11:13] LABS: VANCOMYCIN,TROUGH 14.9 ug/mL (5.0-20.0)
--- NOTE | 2018-04-24 12:00 | PDOC PROGRESS REPORT ---
Subjective Progress Note for:: 04/24/18 Subjective:: Patient is resting comfortably in bed. VAC dressing on his right foot. His only complaint is constipation. Reason For Visit: DIABETIC FOOT W OSTEOMYOLYSIS Physical Exam Vital Signs: Temp Pulse Resp BP Pulse Ox 98.0 F 61 16 139/61 H 98 04/24/18 08:02 04/24/18 08:02 04/24/18 08:02 04/24/18 08:02 04/24/18 08:02 Intake & Output 04/23/18 04/24/18 04/25/18 06:59 06:59 05:59 Intake Total 1416 1178 Output Total 275 Balance 1416 903 Weight 86.4 kg 91.3 kg General appearance: PRESENT: no acute distress, cooperative, well-developed, well-nourished Head exam: PRESENT: atraumatic, normocephalic Eye exam: PRESENT: conjunctiva pale, EOMI. ABSENT: scleral icterus Ear exam: PRESENT: normal external ear exam Mouth exam: PRESENT: moist, neck supple Neck exam: PRESENT: full ROM. ABSENT: carotid bruit, JVD, lymphadenopathy Respiratory exam: PRESENT: clear to auscultation manuel, symmetrical, unlabored. ABSENT: accessory muscle use, rhonchi, wheezes Cardiovascular exam: PRESENT: RRR, +S1, +S2 GI/Abdominal exam: PRESENT: normal bowel sounds, soft. ABSENT: tenderness Extremities exam: PRESENT: other - VAC dressing right foot Neurological exam: PRESENT: alert, awake, oriented to person, oriented to place , oriented to situation, CN II-XII grossly intact Skin exam: PRESENT: dry, warm Results Laboratory Results: 04/24/18 06:00 04/24/18 06:00 04/24/18 04/24/18 06:00 06:00 WBC 9.2 RBC 3.45 L Hgb 9.7 L Hct 28.5 L MCV 83 MCH 28.2 MCHC 34.1 RDW 15.1 H Plt Count 383 Seg Neutrophils % 66.3 Lymphocytes % 22.0 Monocytes % 9.0 Eosinophils % 2.4 Basophils % 0.3 Absolute Neutrophils 6.1 Absolute Lymphocytes 2.0 Absolute Monocytes 0.8 Absolute Eosinophils 0.2 Absolute Basophils 0.0 Sodium 139.3 Potassium 4.7 Chloride 102 Carbon Dioxide 27 Anion Gap 10 BUN 21 H Creatinine 1.28 H Est GFR ( Amer) > 60 Est GFR (Non-Af Amer) 58 L Glucose 225 H Calcium 8.6 Total Bilirubin 0.3 AST 17 ALT 13 L Alkaline Phosphatase 95 Total Protein 6.9 Albumin 2.8 L 04/19/18 11:24 Blood Blood Culture - Final NO GROWTH IN 5 DAYS 04/19/18 11:00 Blood Blood Culture - Final Staphylococcus Aureus 04/18/18 13:20 Blood Blood Culture - Final NO GROWTH IN 5 DAYS Impressions: Foot X-Ray 04/16/18 19:57 IMPRESSION: Findings suggestive of active osteomyelitis of the base of the 4th metacarpal underlying the soft tissue ulceration. Guidance Fluoroscopy 04/23/18 00:00 IMPRESSION: SUCCESSFUL PLACEMENT OF A 5 FR DUAL LUMEN 37 CM PICC IN THE RIGHT BASILIC VEIN. Interventional Vascular Procedure 04/23/18 00:00 IMPRESSION: SUCCESSFUL PLACEMENT OF A 5 FR DUAL LUMEN 37 CM PICC IN THE RIGHT BASILIC VEIN. PICC Line Insertion 04/23/18 00:00 IMPRESSION: SUCCESSFUL PLACEMENT OF A 5 FR DUAL LUMEN 37 CM PICC IN THE RIGHT BASILIC VEIN. Assessment & Plan - Diagnosis (1) Osteomyelitis Qualifiers: Osteomyelitis type: other acute Osteomyelitis location: foot Laterality: right Qualified Code(s): M86.171 - Other acute osteomyelitis, right ankle and foot Is this a current diagnosis for this admission?: Yes Plan: The patient is status post amputation fourth toe and associated metatarsal. This is postop day 8. He had previous amputation of fifth ray and toe previously. The microbiology lab reports positive cultures for staph aureus methicillin sensitive. The bacteria was pansensitive to all blood erythromycin. With his underlying kidney disease I will change his antibiotic regimen to ceftriaxone 2 g daily. He does have a PICC line for prolonged antibiotic therapy. (2) MSSA bacteremia Is this a current diagnosis for this admission?: Yes Plan: As noted above he has a very sensitive staph aureus isolate. Antibiotics changed to ceftriaxone. (3) Hyperkalemia Is this a current diagnosis for this admission?: Yes Plan: The patient's serum potassium was 5.2 yesterday. It is improved today off of lisinopril. Continue his current regimen with amlodipine and hydralazine and monitor potassium level. (4) Chronic kidney disease, stage 3 (moderate) Is this a current diagnosis for this admission?: Yes Plan: The patient's estimated GFR is 58. This appears to be his baseline. Vancomycin has been discontinued as noted above thus reducing possible nephrotoxicity. (5) HTN (hypertension) Qualifiers: Hypertension type: essential hypertension Qualified Code(s): I10 - Essential (primary) hypertension Is this a current diagnosis for this admission?: Yes Plan: On his new regimen of carvedilol 25 mg twice daily, amlodipine 10 mg daily and hydralazine 25 mg twice daily his blood pressures are improved. Continue current regimen and adjust as clinically indicated. (6) Hyperlipidemia Is this a current diagnosis for this admission?: Yes Plan: Continue atorvastatin 40 mg daily. (7) Uncontrolled type 2 diabetes mellitus Is this a current diagnosis for this admission?: Yes Plan: The patient's current regimen is 33 units of Lantus each evening as well as a scheduled Humalog dose with meals as well as the sliding scale. We will continue to monitor his sliding scale requirements and adjust his insulin accordingly. The patient was complaining about his diabetic diet. This is most likely because he is noncompliant at home. (8) Constipation Qualifiers: Constipation type: drug induced constipation Qualified Code(s): K59.03 - Drug induced constipation Is this a current diagnosis for this admission?: Yes Plan: His constipation is likely a combination of limited activity with his recent amputation surgery, narcotic analgesia and a diet that is different from his usual diet at home. He did receive a bottle of citrate of magnesium today. I have ordered MiraLAX scheduled daily. I will check his magnesium level considering his underlying kidney disease. We may also need to change some of his antacid therapy. - Time Time Spent with patient: 15-24 minutes Medications reviewed and adjusted accordingly: Yes
[2018-04-24] MEDS: MAG HYDROX/AL HYDROX/SIMETH SUSP 30 ML UDCUP PO PRN (15:29)
[2018-04-24] MEDS: CEFTRIAXONE SODIUM 2,000 MG in DEXTROSE 5%-WATER 100 ML IV SCH (17:37)
[2018-04-24] MEDS ORDERED: CEFTRIAXONE 2 GM/D5W RTU 2 GM/50 ML RTUPB IV SCH (18:00)
[2018-04-24] MEDS: INSULIN GLARGINE,HUM.REC.ANLOG 300 UNIT/3 ML INSULN.PEN SUBCUT SCH (22:41)
[2018-04-24] MEDS: ATORVASTATIN CALCIUM 40 MG TABLET PO SCH (22:43)
[2018-04-25] MEDS: MAG HYDROX/AL HYDROX/SIMETH SUSP 30 ML UDCUP PO PRN (01:42)
[2018-04-25] MEDS: CARVEDILOL 12.5 MG TABLET PO SCH ×2 (05:37→17:20)
[2018-04-25] MEDS: HEPARIN SOD (PORCINE) 5,000 UNIT/ML 1 ML SYRINGE SUBCUT SCH ×3 (05:44→21:53)
[2018-04-25 06:38] LABS: HEMATOCRIT 29.6 % (37.9-51.0); HEMOGLOBIN 9.7 g/dL (13.5-17.0); MEAN CORPUSCULAR HEMOGLOBIN 27.2 pg (27.0-33.4); MEAN CORPUSCULAR HGB CONC 32.8 g/dL (32.0-36.0); MEAN CORPUSCULAR VOLUME 83 fl (80-97); PLATELET COUNT 414 10^3/uL (150-450); RED BLOOD COUNT 3.57 10^6/uL (4.35-5.55); RED CELL DISTRIBUTION WIDTH 15.1 % (11.5-14.0); WHITE BLOOD COUNT 10.3 10^3/uL (4.0-10.5)
[2018-04-25 07:07] LABS: ANION GAP 7 (5-19); BLOOD UREA NITROGEN 21 mg/dL (7-20); CALCIUM 8.7 mg/dL (8.4-10.2); CARBON DIOXIDE 30 mmol/L (22-30); CHLORIDE 102 mmol/L (98-107); GLUCOSE 236 mg/dL (75-110); POTASSIUM 5.1 mmol/L (3.6-5.0)
[2018-04-25] MEDS ORDERED: SODIUM POLYSTYRENE SULFONATE 15 GM/60 ML PO ONE (07:46)
[2018-04-25] MEDS: INSULIN LISPRO 100 UNIT/ML 3 ML VIAL SUBCUT SCH ×3 (09:45→17:20)
[2018-04-25] MEDS: INSULIN LISPRO 100 UNIT/ML 3 ML VIAL SUBCUT PRN ×2 (09:45→12:26)
[2018-04-25] MEDS: DOCUSATE SODIUM 100 MG CAPSULE PO SCH ×2 (09:46→17:20)
[2018-04-25] MEDS: AMLODIPINE BESYLATE 10 MG TABLET PO SCH (09:46)
[2018-04-25] MEDS: TRAZODONE HCL 50 MG TABLET PO SCH ×2 (09:46→21:51)
[2018-04-25] MEDS: NORMAL SALINE 10 ML SDV (SCHEDULED) IV SCH (09:46)
[2018-04-25] MEDS: FAMOTIDINE 20 MG TABLET PO SCH ×2 (09:46→21:52)
[2018-04-25] MEDS: OXYCODONE-ACETAMINOPHEN 5-325 MG TABLET PO PRN ×2 (09:58→16:14)
[2018-04-25] MEDS: OXYCODONE HCL IR 5 MG TABLET PO PRN ×2 (09:58→16:14)
[2018-04-25] MEDS: POLYETHYLENE GLYCOL 3350 POWDER 17 GM/1 PACKET PO SCH (10:08)
--- NOTE | 2018-04-25 10:50 | PDOC PROGRESS REPORT ---
Subjective Progress Note for:: 04/25/18 Subjective:: Mr. Mcleod is a 57 year old male with who is unfortunately homeless past medical history of, anxiety, hypertension, stage III chronic kidney disease, uncontrolled insulin-dependent diabetes, COPD, PVD and history of osteomyelitis who is status post fifth toe amputation sent to ED complaining of worsening right foot pain with purulent discharge. Upon admission, right foot was noted to have multiple necrotic tissues and positive x-ray for osteomyelitis. He is status post I&D and fourth toe amputation on 04/17/2018. 04/20/2018. No acute events overnight. Patient is comfortably resting in his bed. Asked how he was doing he states that he is having right lower extremity throbbing pain. He is p.o. tolerant and cooperating with physical examination. He denies any fever, chills, nausea, vomiting, diarrhea, constipation, shortness of breath or any urinary symptoms. 04/21/2018. No acute events overnight. As per nurses report patient has been very compliant with his insulin BP meds. He is refusing his diabetic diet. He has been consistently arguing with the nurse about his Percocet. On my encounter patient is comfortably sitting on his recliner and having his both extremities elevated over the bed. He does not seem to be in any acute distress but he is very argumentative about his Percocet. He wants her Percocet dosage increased because he is not controlling his pain in the left lower extremity. This is stating that he is still having pulsating right foot pain which is only controlled with Percocet. He has been refusing his to take his total of Tylenol. When asked about his diabetic diet he is adamantly refusing to be placed on diabetic diet because it does not taste good. Patient denies any fever, chills, nausea, vomiting, diarrhea, constipation or any urinary symptoms. 04/22/2018. On my encounter patient is sitting in his recliner having both legs elevated very pleasant and cooperative and seems to be very satisfied with the amount of pain management that he is receiving. He also had a conversation with equal opportunity specialist about his diabetes and now has decided to go try diabetic diet. Denies any fever, chills, nausea, vomiting, chest pain, shortness of breath, constipation or any urinary symptoms. 04/23/2018. On my encounter patient is resting comfortably in his recliner elevating bilateral legs. Stating that he is feeling much better and happy with the amount of opioid narcotics that he is receiving for his foot pain. He is not very happy about being discharged stating that he has no place to go. He denies fever, nausea, vomiting, diarrhea, constipation or any urinary symptoms. Still not very compliant with his diabetic diet. 04/25/2018. No acute events overnight. Patient comfortably resting in bed. Complaining of continuing pulsating pain in the right lower extremity. He still has wound VAC in place. He is p.o. tolerant and ambulating within the room. He denies any fever, chills, nausea, vomiting, diarrhea, constipation or any urinary symptoms. Reason For Visit: DIABETIC FOOT W OSTEOMYOLYSIS Physical Exam Vital Signs: Temp Pulse Resp BP Pulse Ox 98.0 F 69 16 158/74 H 100 04/25/18 07:15 04/25/18 07:15 04/25/18 07:15 04/25/18 07:15 04/25/18 07:15 Intake & Output 04/24/18 04/25/18 04/26/18 07:59 06:59 06:59 Intake Total Output Total Balance Weight General appearance: PRESENT: no acute distress, well-developed, well-nourished Respiratory exam: PRESENT: clear to auscultation manuel. ABSENT: rales, rhonchi, wheezes Cardiovascular exam: PRESENT: RRR. ABSENT: diastolic murmur, rubs, systolic murmur Extremities exam: PRESENT: +2 edema - Left lower extremity below knee., other - Status post right fifth metatarsal ray amputation. Wound VAC in place. Wound looks clean Results Laboratory Results: 04/25/18 05:40 04/25/18 05:40 04/25/18 04/25/18 05:40 05:40 WBC 10.3 RBC 3.57 L Hgb 9.7 L Hct 29.6 L MCV 83 MCH 27.2 MCHC 32.8 RDW 15.1 H Plt Count 414 Sodium 139.0 Potassium 5.1 H Chloride 102 Carbon Dioxide 30 Anion Gap 7 BUN 21 H Creatinine 1.22 Est GFR ( Amer) > 60 Est GFR (Non-Af Amer) > 60 Glucose 236 H Calcium 8.7 Magnesium 2.6 H 04/19/18 11:24 Blood Blood Culture - Final NO GROWTH IN 5 DAYS 04/19/18 11:00 Blood Blood Culture - Final Staphylococcus Aureus Impressions: Foot X-Ray 04/16/18 19:57 IMPRESSION: Findings suggestive of active osteomyelitis of the base of the 4th metacarpal underlying the soft tissue ulceration. Guidance Fluoroscopy 04/23/18 00:00 IMPRESSION: SUCCESSFUL PLACEMENT OF A 5 FR DUAL LUMEN 37 CM PICC IN THE RIGHT BASILIC VEIN. Interventional Vascular Procedure 04/23/18 00:00 IMPRESSION: SUCCESSFUL PLACEMENT OF A 5 FR DUAL LUMEN 37 CM PICC IN THE RIGHT BASILIC VEIN. PICC Line Insertion 04/23/18 00:00 IMPRESSION: SUCCESSFUL PLACEMENT OF A 5 FR DUAL LUMEN 37 CM PICC IN THE RIGHT BASILIC VEIN. Assessment & Plan - Diagnosis (1) Osteomyelitis Qualifiers: Osteomyelitis type: other acute Osteomyelitis location: foot Laterality: right Qualified Code(s): M86.171 - Other acute osteomyelitis, right ankle and foot Is this a current diagnosis for this admission?: Yes Plan: Status post I&D and right foot ray amputation on 04/17/2018. Postoperative day 9 Blood cultures from 04/16/2018 and 04/19/2018 both growing MSSA. Patient has PICC line in place due to difficult venous access. We will continue IV antibiotics. Total 9 days of antibiotic. Switch to p.o. on discharge. (2) MSSA bacteremia Is this a current diagnosis for this admission?: Yes Plan: Cultures from 04/16/2018 and 04/19/2018 both growing MSSA. Total 9 days of antibiotics. Continue IV antibiotics. Switch to p.o. on discharge. (3) Chronic kidney disease, stage 3 (moderate) Is this a current diagnosis for this admission?: Yes Plan: Creatinine and electrolytes within normal limits. Avoid nephrotoxic agents. Optimize diabetes and hypertension treatments. Outpatient nephrology follow-up. (4) HTN (hypertension) Qualifiers: Hypertension type: essential hypertension Qualified Code(s): I10 - Essential (primary) hypertension Is this a current diagnosis for this admission?: Yes Plan: Uncontrolled. DC lisinopril due to hyperkalemia. Continue carvedilol 25 twice daily, amlodipine 10 mg p.o. and hydralazine 25 twice daily. Hydralazine as needed. Adjust medications as needed. (5) Hyperlipidemia Is this a current diagnosis for this admission?: Yes Plan: ASCVD 27.3%. Continue high intensity statins. Lifestyle and diet modification. (6) Uncontrolled type 2 diabetes mellitus Is this a current diagnosis for this admission?: Yes Plan: Uncontrolled. Patient noncompliant with diabetic diet. A1c on admission 13.8. Increase Lantus to 35 units nightly. Pre-meal 8 units. Continue sliding scale. Adjust insulin dosage as needed. Patient was extensively counseled on the need for diabetic diet. Patient received diabetic education. (7) Anemia Is this a current diagnosis for this admission?: Yes Plan: Normocytic. Likely due to combined anemia of CKD and anemia of chronic disease. H&H stable. Supportive transfusion if hemoglobin drops less than 7 or actively bleeding. (8) Hyperkalemia Is this a current diagnosis for this admission?: Yes Plan: Potassium 5.0. Hold lisinopril. Give 1 dose of Kayexalate.. BMP tomorrow.
[2018-04-25] MEDS ORDERED: HYDRALAZINE HCL 25 MG TABLET PO SCH (14:00)
[2018-04-25] MEDS: HYDRALAZINE HCL INJ/PF 20 MG/1 ML SDV IV PRN (17:19)
[2018-04-25] MEDS: CEFTRIAXONE SODIUM 2,000 MG in DEXTROSE 5%-WATER 100 ML IV SCH (17:56)
[2018-04-25 18:32] LABS: ANION GAP 12 (5-19); BLOOD UREA NITROGEN 20 mg/dL (7-20); CALCIUM 8.7 mg/dL (8.4-10.2); CARBON DIOXIDE 29 mmol/L (22-30); CHLORIDE 101 mmol/L (98-107); GLUCOSE 191 mg/dL (75-110); POTASSIUM 4.5 mmol/L (3.6-5.0); SODIUM 141.7 mmol/L (137-145)
[2018-04-25] MEDS: HYDRALAZINE HCL 25 MG TABLET PO SCH (21:51)
[2018-04-25] MEDS: ATORVASTATIN CALCIUM 40 MG TABLET PO SCH (21:53)
[2018-04-25] MEDS ORDERED: INSULIN GLARGINE,HUM.REC.ANLOG 300 UNIT/3 ML INSULN.PEN SUBCUT SCH (22:00)
[2018-04-25 23:54] VITALS: BP 135/63
[2018-04-26] MEDS: MAG HYDROX/AL HYDROX/SIMETH SUSP 30 ML UDCUP PO PRN (00:55)
[2018-04-26] MEDS: NORMAL SALINE 10 ML SDV (SCHEDULED) IV SCH ×2 (00:57→10:26)
[2018-04-26] MEDS: HYDRALAZINE HCL 25 MG TABLET PO SCH (06:29)
[2018-04-26] MEDS: CARVEDILOL 12.5 MG TABLET PO SCH (06:32)
[2018-04-26 06:45] LABS: ABSOLUTE BASOPHILS # (AUTO) 0.1 10^3/uL (0.0-0.2); ABSOLUTE EOSINOPHILS # (AUTO) 0.2 10^3/uL (0.0-0.6); ABSOLUTE LYMPHOCYTES (AUTO) 1.9 10^3/uL (0.5-4.7); ABSOLUTE NEUT (AUTO) 6.2 10^3/uL (1.7-8.2); BASOPHILS % (AUTO) 0.9 % (0-2); EOSINOPHILS % (AUTO) 2.6 % (0-6); HEMATOCRIT 26.4 % (37.9-51.0); HEMOGLOBIN 8.8 g/dL (13.5-17.0); LYMPHOCYTES % (AUTO) 19.9 % (13-45); MEAN CORPUSCULAR HEMOGLOBIN 27.4 pg (27.0-33.4); MEAN CORPUSCULAR HGB CONC 33.2 g/dL (32.0-36.0); MEAN CORPUSCULAR VOLUME 83 fl (80-97); MONOCYTES % (AUTO) 10.7 % (3-13); PLATELET COUNT 376 10^3/uL (150-450); SEGMENTED NEUTROPHILS % (AUTO) 65.9 % (42-78); TOTAL CELLS COUNTED % (AUTO) 100 %; WHITE BLOOD COUNT 9.5 10^3/uL (4.0-10.5)
[2018-04-26 08:33] LABS: ANION GAP 9 (5-19); BLOOD UREA NITROGEN 19 mg/dL (7-20); CALCIUM 8.2 mg/dL (8.4-10.2); CARBON DIOXIDE 31 mmol/L (22-30); CHLORIDE 101 mmol/L (98-107); GLUCOSE 201 mg/dL (75-110); SODIUM 140.8 mmol/L (137-145)
[2018-04-26 08:34] LABS: POTASSIUM 4.4 mmol/L (3.6-5.0)
[2018-04-26] MEDS: HEPARIN SOD (PORCINE) 5,000 UNIT/ML 1 ML SYRINGE SUBCUT SCH (09:30)
[2018-04-26] MEDS: POLYETHYLENE GLYCOL 3350 POWDER 17 GM/1 PACKET PO SCH (10:19)
[2018-04-26] MEDS: TRAZODONE HCL 50 MG TABLET PO SCH (10:26)
[2018-04-26] MEDS: AMLODIPINE BESYLATE 10 MG TABLET PO SCH (10:26)
[2018-04-26] MEDS: INSULIN LISPRO 100 UNIT/ML 3 ML VIAL SUBCUT PRN (10:27)
[2018-04-26] MEDS: INSULIN LISPRO 100 UNIT/ML 3 ML VIAL SUBCUT SCH (10:27)
[2018-04-26] MEDS: OXYCODONE-ACETAMINOPHEN 5-325 MG TABLET PO PRN (10:29)
[2018-04-26] MEDS: OXYCODONE HCL IR 5 MG TABLET PO PRN (10:30)
[2018-04-26] MEDS: DOCUSATE SODIUM 100 MG CAPSULE PO SCH (10:32)
[2018-04-26] MEDS: FAMOTIDINE 20 MG TABLET PO SCH (10:32)
--- NOTE | 2018-04-26 12:19 | PDOC DISCHARGE SUMMARY ---
General - Admit/Disc Date/PCP Admission Date/Primary Care Provider: 04/16/18 22:34 Discharge Date: 04/26/18 - Discharge Diagnosis (1) Osteomyelitis Is this a current diagnosis for this admission?: Yes (2) MSSA bacteremia Is this a current diagnosis for this admission?: Yes (3) Chronic kidney disease, stage 3 (moderate) Is this a current diagnosis for this admission?: Yes (4) HTN (hypertension) Is this a current diagnosis for this admission?: Yes (5) Hyperlipidemia Is this a current diagnosis for this admission?: Yes (6) Uncontrolled type 2 diabetes mellitus Is this a current diagnosis for this admission?: Yes (7) Anemia Is this a current diagnosis for this admission?: Yes (8) Hyperkalemia Is this a current diagnosis for this admission?: Yes - Additional Information Resuscitation Status: Full Code Discharge Diet: As Tolerated Discharge Activity: Activity As Tolerated Prescriptions: Amlodipine Besylate [Norvasc 10 mg Tablet] 10 mg PO DAILY 30 Days #30 tablet Atorvastatin Calcium [Lipitor 40 mg Tablet] 40 mg PO QHS 30 Days #30 tablet Carvedilol [Coreg 12.5 mg Tablet] 25 mg PO Q12A 30 Days #60 tablet Clindamycin HCl [Cleocin 150 mg Capsule] 300 mg PO Q8 5 Days #20 capsule Hydralazine HCl [Apresoline 50 mg Tablet] 50 mg PO Q8 30 Days #90 tablet Insulin Glargine,Hum.rec.anlog [Lantus Insulin 100 Unit/mL] 35 unit SUBCUT QHS 30 Days #5 insuln.pen Insulin Lispro [Humalog Insulin (Lispro) 100 unit/mL] 8 unit SUBCUT AC 30 Days # 5 unit Oxycodone HCl [Oxy-Ir 5 mg Tablet] 5 mg PO Q6HP PRN 3 Days #12 tablet PRN Reason: Trazodone HCl [Desyrel 50 mg Tablet] 50 mg PO Q12 15 Days #30 tablet Home Medications: Amlodipine Besylate [Norvasc 10 mg Tablet] 10 mg PO DAILY 30 Days #30 tablet 11/06 Atorvastatin Calcium [Lipitor 40 mg Tablet] 40 mg PO QHS 30 Days #30 tablet 11/06 Carvedilol [Coreg 12.5 mg Tablet] 25 mg PO Q12A 30 Days #60 tablet 04/26/18 Clindamycin HCl [Cleocin 150 mg Capsule] 300 mg PO Q8 5 Days #20 capsule Hydralazine HCl [Apresoline 50 mg Tablet] 50 mg PO Q8 30 Days #90 tablet Insulin Glargine,Hum.rec.anlog [Lantus Insulin 100 Unit/mL] 35 unit SUBCUT QHS 30 Days #5 insuln.pen 04/26/18 Insulin Lispro [Humalog Insulin (Lispro) 100 unit/mL] 8 unit SUBCUT AC 30 Days # 5 unit 04/26/18 Oxycodone HCl [Oxy-Ir 5 mg Tablet] 5 mg PO Q6HP PRN 3 Days #12 tablet 04/26/18 Trazodone HCl [Desyrel 50 mg Tablet] 50 mg PO Q12 15 Days #30 tablet 04/26/18 History of Present Illness History of Present Illness: Mr. Mcleod is a 57 year old male with who is unfortunately homeless past medical history of, anxiety, hypertension, stage III chronic kidney disease, uncontrolled insulin-dependent diabetes, COPD, PVD and history of osteomyelitis who is status post fifth toe amputation sent to ED complaining of worsening right foot pain with purulent discharge. Upon admission, right foot was noted to have multiple necrotic tissues and positive x-ray for osteomyelitis. He is status post I&D and fourth toe amputation on 04/17/2018. Hospital Course Hospital Course: (1) Osteomyelitis Status post I&D and right foot ray amputation on 04/17/2018. Postoperative day 10 Blood cultures from 04/16/2018 and 04/19/2018 both growing MSSA. Wound culture available. Patient has PICC line in place due to difficult venous access. We will continue IV antibiotics. Switch to clindamycin to complete 14 days of total antibiotics. Patient was provided with appointment for wound care as outpatient. Does not qualify for rehab. (2) MSSA bacteremia Cultures from 04/16/2018 and 04/19/2018 both growing MSSA. Total 10 days of antibiotics. Which p.o. clindamycin upon discharge to complete total of 14 days. (3) Chronic kidney disease, stage 3 (moderate) Creatinine and electrolytes within normal limits. Avoid nephrotoxic agents. Optimize diabetes and hypertension treatments. Outpatient nephrology follow-up. (4) HTN (hypertension) Very difficult to control. DC lisinopril due to hyperkalemia. Continue carvedilol 25 twice daily, amlodipine 10 mg p.o. and hydralazine 50 twice daily. (5) Hyperlipidemia ASCVD 27.3%. Continue high intensity statins. Lifestyle and diet modification. (6) Uncontrolled type 2 diabetes mellitus Uncontrolled. Patient noncompliant with diabetic diet. A1c on admission 13.8. Start on Lantus 35. And pre-meal insulin. Patient was strongly advised to follow-up with his PCP for adjustment of his diabetes. Patient was extensively counseled on the need for diabetic diet. Patient received diabetic education. (7) Anemia Normocytic. Likely due to combined anemia of CKD and anemia of chronic disease. H&H stable. No active bleeding during hospitalization. Denies any melena, hematochezia, hematemesis, hemoptysis. Not receive any transfusion during hospitalization. (8) Hyperkalemia Resolved. Lisinopril was held. Patient received hyperkalemia protocol. Follow -up with PCP as outpatient. Physical Exam Vital Signs: Temp Pulse Resp BP Pulse Ox 97.6 F 69 19 135/63 H 98 04/26/18 11:56 04/26/18 11:56 04/26/18 11:56 04/26/18 11:56 04/26/18 11:56 Intake & Output 04/25/18 04/26/18 04/27/18 06:59 06:59 06:59 Intake Total 926 Output Total 500 Balance 426 Weight 91.4 kg General appearance: PRESENT: no acute distress, well-developed, well-nourished Head exam: PRESENT: atraumatic, normocephalic Eye exam: ABSENT: scleral icterus Neck exam: ABSENT: carotid bruit, JVD, lymphadenopathy, thyromegaly Respiratory exam: PRESENT: clear to auscultation manuel. ABSENT: rales, rhonchi, wheezes Cardiovascular exam: PRESENT: RRR. ABSENT: diastolic murmur, rubs, systolic murmur Pulses: PRESENT: normal dorsalis pedis pul Vascular exam: PRESENT: normal capillary refill GI/Abdominal exam: PRESENT: normal bowel sounds, soft. ABSENT: distended, guarding, mass, organolmegaly, rebound, tenderness Rectal exam: PRESENT: deferred Extremities exam: PRESENT: full ROM. ABSENT: calf tenderness, clubbing, pedal edema Musculoskeletal exam: PRESENT: other - Right foot wound looks clean no active drainage or erythema. Swelling has resolved. Neurological exam: PRESENT: alert, awake, oriented to person, oriented to place , oriented to time, oriented to situation, CN II-XII grossly intact. ABSENT: motor sensory deficit Psychiatric exam: PRESENT: appropriate affect, normal mood. ABSENT: homicidal ideation, suicidal ideation Skin exam: PRESENT: dry, intact, warm. ABSENT: cyanosis, rash Results Laboratory Results: 04/26/18 05:45 04/26/18 05:45 04/25/18 04/26/18 04/26/18 17:52 05:45 05:45 WBC 9.5 RBC 3.20 L Hgb 8.8 L Hct 26.4 L MCV 83 MCH 27.4 MCHC 33.2 RDW 15.0 H Plt Count 376 Seg Neutrophils % 65.9 Lymphocytes % 19.9 Monocytes % 10.7 Eosinophils % 2.6 Basophils % 0.9 Absolute Neutrophils 6.2 Absolute Lymphocytes 1.9 Absolute Monocytes 1.0 Absolute Eosinophils 0.2 Absolute Basophils 0.1 Sodium 141.7 Potassium 4.5 Chloride 101 Carbon Dioxide 29 Anion Gap 12 BUN 20 Creatinine 1.34 H Est GFR ( Amer) > 60 Est GFR (Non-Af Amer) 55 L Glucose 191 H Calcium 8.7 Magnesium 2.5 H 04/26/18 05:45 WBC RBC Hgb Hct MCV MCH MCHC RDW Plt Count Seg Neutrophils % Lymphocytes % Monocytes % Eosinophils % Basophils % Absolute Neutrophils Absolute Lymphocytes Absolute Monocytes Absolute Eosinophils Absolute Basophils Sodium 140.8 Potassium 4.4 Chloride 101 Carbon Dioxide 31 H Anion Gap 9 BUN 19 Creatinine 1.29 H Est GFR ( Amer) > 60 Est GFR (Non-Af Amer) 57 L Glucose 201 H Calcium 8.2 L Magnesium Impressions: Foot X-Ray 04/16/18 19:57 IMPRESSION: Findings suggestive of active osteomyelitis of the base of the 4th metacarpal underlying the soft tissue ulceration. Guidance Fluoroscopy 04/23/18 00:00 IMPRESSION: SUCCESSFUL PLACEMENT OF A 5 FR DUAL LUMEN 37 CM PICC IN THE RIGHT BASILIC VEIN. Interventional Vascular Procedure 04/23/18 00:00 IMPRESSION: SUCCESSFUL PLACEMENT OF A 5 FR DUAL LUMEN 37 CM PICC IN THE RIGHT BASILIC VEIN. PICC Line Insertion 04/23/18 00:00 IMPRESSION: SUCCESSFUL PLACEMENT OF A 5 FR DUAL LUMEN 37 CM PICC IN THE RIGHT BASILIC VEIN. Qualifiers - * PATIENT BEING DISCHARGED WITH ANY OF THE FOLLOWING DIAGNOSIS: No
[2018-04-26] MEDS ORDERED: CLINDAMYCIN HCL 150 MG CAPSULE PO SCH (14:00)
[2018-04-26] MEDS ORDERED: HYDRALAZINE HCL 50 MG TABLET PO SCH (14:00)
== END 2018-04-26 12:45 | disposition home or self-care (01) | DRG 617 ==
LOC: ER 19:03 → EH 22:34 → 4S 04-17 01:29
PROVIDERS: ADMIT Internal Medicine; ATTEND Internal Medicine
PROC: 0Y6M0ZD Detachment at Right Foot, Partial 4th Ray, Open Approach (ICD-10-PCS; principal; 2018-04-17 13:00)
PROC: 02HV33Z Insertion of Infusion Device into Superior Vena Cava, Percutaneous Approach (ICD-10-PCS; 2018-04-23)
PROC: B548ZZA Ultrasonography of Superior Vena Cava, Guidance (ICD-10-PCS; 2018-04-23)
PROC: B518ZZA Fluoroscopy of Superior Vena Cava, Guidance (ICD-10-PCS; 2018-04-23)
DX: E11.69 Type 2 diabetes mellitus with other specified complication (principal); M86.171 Other acute osteomyelitis, right ankle and foot; L97.518 Non-pressure chronic ulcer of other part of right foot with other specified severity; R78.81 Bacteremia; F17.200 Nicotine dependence, unspecified, uncomplicated; B95.61 Methicillin susceptible Staphylococcus aureus infection as the cause of diseases classified elsewhere; D63.1 Anemia in chronic kidney disease; E87.5 Hyperkalemia; J44.9 Chronic obstructive pulmonary disease, unspecified; N17.9 Acute kidney failure, unspecified; E78.5 Hyperlipidemia, unspecified; F41.9 Anxiety disorder, unspecified; F32.9 Major depressive disorder, single episode, unspecified; E11.621 Type 2 diabetes mellitus with foot ulcer; E11.22 Type 2 diabetes mellitus with diabetic chronic kidney disease; K59.03 Drug induced constipation; T40.605A Adverse effect of unspecified narcotics, initial encounter; I12.9 Hypertensive chronic kidney disease with stage 1 through stage 4 chronic kidney disease, or unspecified chronic kidney disease; N18.3 Chronic kidney disease, stage 3 (moderate); E11.65 Type 2 diabetes mellitus with hyperglycemia; E11.51 Type 2 diabetes mellitus with diabetic peripheral angiopathy without gangrene; Z59.0 Homelessness; Z89.421 Acquired absence of other right toe(s); Z79.4 Long term (current) use of insulin; Z91.11 Patient's noncompliance with dietary regimen; T38.3X6A Underdosing of insulin and oral hypoglycemic [antidiabetic] drugs, initial encounter; Z91.138 Patient's unintentional underdosing of medication regimen for other reason; Z65.5 Exposure to disaster, war and other hostilities
CPT/HCPCS: 01480; 36415; 36569; 76937; 77001; 80048; 80053; 80202; 82803; 82962; 83036; 83605; 83735; 85025; 85027; 87040; 87077; 87186; 93005; 93010; 99285; J0360; J0610; J0692; J0696; J1642; J1644; J1815; J1885; J2250; J2543; J2704; J3010; J3360; J3370; J3490; J7030; J7060; J7120

== ENCOUNTER 2018-05-07 09:31 | Inpatient (IN) | payer MEDICAID ==
[2018-05-07 12:22] LABS: HEMATOCRIT 30.8 % (37.9-51.0); HEMOGLOBIN 10.1 g/dL (13.5-17.0); MEAN CORPUSCULAR HGB CONC 32.6 g/dL (32.0-36.0); MEAN CORPUSCULAR VOLUME 80 fl (80-97); PLATELET COUNT 453 10^3/uL (150-450); RED BLOOD COUNT 3.87 10^6/uL (4.35-5.55); RED CELL DISTRIBUTION WIDTH 15.4 % (11.5-14.0); WHITE BLOOD COUNT 21.1 10^3/uL (4.0-10.5)
[2018-05-07 12:26] LABS: ALANINE AMINOTRANSFERASE 20 U/L (21-72); ALBUMIN 3.2 g/dL (3.5-5.0); ALKALINE PHOSPHATASE 142 U/L (38-126); ANION GAP 15 (5-19); ASPARTATE AMINO TRANSFERASE 19 U/L (17-59); BILIRUBIN,DIRECT 0.3 mg/dL (0.0-0.4); BILIRUBIN,TOTAL 0.7 mg/dL (0.2-1.3); BLOOD UREA NITROGEN 20 mg/dL (7-20); CALCIUM 8.9 mg/dL (8.4-10.2); CARBON DIOXIDE 24 mmol/L (22-30); CHLORIDE 96 mmol/L (98-107); GLUCOSE 308 mg/dL (75-110); POTASSIUM 3.8 mmol/L (3.6-5.0); SODIUM 134.6 mmol/L (137-145); TOTAL PROTEIN 7.7 g/dL (6.3-8.2)
[2018-05-07 13:19] LABS: ABSOLUTE LYMPHOCYTES# (MANUAL) 2.3 10^3/uL (0.5-4.7); ABSOLUTE MONOCYTES # (MANUAL) 1.7 10^3/uL (0.1-1.4); ABSOLUTE NEUTROPHILS# (MANUAL) 16.9 10^3/uL (1.7-8.2); BAND NEUTROPHILS % (MANUAL) 1 % (3-5); BASOPHILS % (MANUAL) 0 % (0-2); EOSINOPHILS % (MANUAL) 1 % (0-6); LYMPHOCYTES % (MANUAL) 11 % (13-45); MONOCYTES % (MANUAL) 8 % (3-13); SEGMENTED NEUTROPHILS % (MAN) 79 % (42-78); TOTAL CELLS COUNTED 100
[2018-05-07 13:22] LABS: HYPOCHROMASIA SLIGHT; PLATELET COMMENT ADEQUATE; TOXIC GRANULATION SLIGHT
[2018-05-07] MEDS: NORMAL SALINE 1000 ML 1,000 ML IV PRN ×3 (14:09→22:10)
[2018-05-07] MEDS ORDERED: CEFTAZIDIME INJ 1 GM VIAL IV ONE (14:20)
[2018-05-07] MEDS ORDERED: VANCOMYCIN HCL INJ 1000 MG VIAL IV ONE (14:20)
[2018-05-07] MEDS ORDERED: INSULIN DETEMIR 100 UNIT/ML 3 ML PEN SUBCUT ONE (15:05)
--- NOTE | 2018-05-07 15:20 | ER Document Report ---
ED General - General Chief Complaint: Nausea/Vomiting Stated Complaint: FOOT PAIN Time Seen by Provider: 05/07/18 09:38 Mode of Arrival: Ambulatory Information source: Patient Notes: Chief complaint: Right foot wound, general malaise History of complain:( obtained from----patient) 57 years old male presents today with general malaise and with a diabetic foot with amputation of the toe. Going through wound clinic. Noted some purulent discharge today and general malaise and fatigue therefore came to the ED. History of diabetes and hypertension Onset: As above Duration: Gradual Severity: Moderate Quality: Sharp Context: Ulcer Exacerbating factor and relieving factors: Walking REVIEW OF SYSTEMS: CONSTITUTIONAL : Denies fever, chills, or sweats. Denies recent illness. EENT: Denies eye, ear, throat, or mouth pain or symptoms. Denies nasal or sinus congestion or discharge. Denies throat, tongue, or mouth swelling or difficulty swallowing. CARDIOVASCULAR: Denies chest pain. Denies palpitations or racing or irregular heart beat. Denies ankle edema. RESPIRATORY: Denies cough, cold, or chest congestion. Denies shortness of breath, difficulty breathing, or wheezing. GASTROINTESTINAL: Denies distention. Denies nausea, vomiting, or diarrhea. Denies blood in vomitus, stools, or per rectum. Denies black, tarry stools. Denies constipation. GENITOURINARY: Denies difficulty urinating, painful urination, burning, frequency, blood in urine, or discharge. FEMALE GENITOURINARY: Denies vaginal bleeding, heavy or abnormal periods, irregular periods. Denies vaginal discharge or odor. MUSCULOSKELETAL: SKIN: Denies rash, lesions or sores. HEMATOLOGIC : Denies easy bruising or bleeding. LYMPHATIC: Denies swollen, enlarged glands. NEUROLOGICAL: Denies confusion or altered mental status. Denies passing out or loss of consciousness. Denies dizziness or lightheadedness. Denies headache. Denies weakness or paralysis or loss of use of either side. Denies problems with gait or speech. Denies sensory loss, numbness, or tingling. Denies seizures. PSYCHIATRIC: Denies anxiety or stress. Denies depression, suicidal ideation, or homicidal ideation. ALL OTHER SYSTEMS REVIEWED AND NEGATIVE. PHYSICAL EXAMINATION: GENERAL: Well-appearing, well-nourished and in mild to moderate acute distress. HEAD: Atraumatic, normocephalic. EYES: Pupils equal round and reactive to light, extraocular movements intact, conjunctiva are normal. ENT: Nares patent, oropharynx clear without exudates. Moist mucous membranes. NECK: Normal range of motion, supple without lymphadenopathy LUNGS: Breath sounds clear to auscultation bilaterally and equal. No wheezes rales or rhonchi. HEART: Regular rate and rhythm without murmurs ABDOMEN: Soft, nontender, nondistended abdomen. No guarding, no rebound. No masses appreciated. Examination of genitals-deferred Musculoskeletal: Right foot has surgical dressing, which is foul-smelling and noted some purulent discharge. NEUROLOGICAL: Cranial nerves grossly intact. Normal speech, normal gait. Normal sensory, motor exams PSYCH: Normal mood, normal affect. SKIN: Warm, Dry, normal turgor, no rashes or lesions noted. Dictation was performed using [employer] voice recognition software TRAVEL OUTSIDE OF THE [place] IN LAST 30 DAYS: No - HPI Notes: Dictated - Related Data Allergies/Adverse Reactions: metformin Allergy (Unknown, Verified 04/22/18 08:05) Past Medical History - Social History Smoking Status: Former Smoker Frequency of alcohol use: None Drug Abuse: None Lives with: Alone, Family Family History: Reviewed & Not Pertinent, DM, Hypertension Patient has suicidal ideation: No Patient has homicidal ideation: No - Past Medical History Cardiac Medical History: Reports: Hx Hypercholesterolemia, Hx Hypertension Pulmonary Medical History: Reports: Hx COPD Endocrine Medical History: Reports: Hx Diabetes Mellitus Type 1, Hx Diabetes Mellitus Type 2 Renal/ Medical History: Reports: Hx Renal Insufficiency. 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 bone Review of Systems - Review of Systems Notes: Dictated Physical Exam - Vital signs Vitals: Temp Pulse Resp BP Pulse Ox 98.7 F 88 20 213/86 H 98 05/07/18 10:01 05/07/18 10:01 05/07/18 10:01 05/07/18 10:01 05/07/18 10:01 - Notes Notes: Dictated Course - Vital Signs Vital signs: Temp Pulse Resp BP Pulse Ox 98.7 F 84 18 191/71 H 98 05/07/18 10:01 05/07/18 14:28 05/07/18 14:28 05/07/18 14:28 05/07/18 14:28 - Laboratory Result Diagrams: 05/07/18 11:58 05/07/18 11:58 Laboratory results interpreted by me: 05/07/18 05/07/18 11:58 11:58 WBC 21.1 H RBC 3.87 L Hgb 10.1 L Hct 30.8 L MCH 26.0 L RDW 15.4 H Plt Count 453 H Seg Neuts % (Manual) 79 H Band Neutrophils % 1 L Lymphocytes % (Manual) 11 L Abs Neuts (Manual) 16.9 H Abs Monocytes (Manual) 1.7 H Sodium 134.6 L Chloride 96 L Glucose 308 H ALT 20 L Alkaline Phosphatase 142 H Albumin 3.2 L Discharge - Discharge Clinical Impression: Osteomyelitis due to type 2 diabetes mellitus, Diabetic foot infection Condition: Stable Disposition: ADMITTED INPATIENT Admitting Provider: Hospitalist
[2018-05-07] MEDS ORDERED: FENTANYL CITRATE INJ/PF 100 MCG/2 ML AMPUL IV ONE (15:23)
[2018-05-07] MEDS ORDERED: ONDANSETRON HCL INJ/PF 4 MG/2 ML SDV IV ONE (15:24)
[2018-05-07] MEDS ORDERED: MAG HYDROX/AL HYDROX/SIMETH SUSP 30 ML UDCUP PO PRN (17:10)
[2018-05-07] MEDS ORDERED: DEXTROSE 50%-WATER 25 GM/50 ML DISP.SYRIN IV PRN ×2 (17:23)
[2018-05-07] MEDS ORDERED: GLUCAGON,HUMAN RECOMB 1 MG INJ IM PRN (17:23)
[2018-05-07] MEDS ORDERED: DEXTROSE 40% GEL 15 GM TUBE PO PRN ×2 (17:23)
[2018-05-07] MEDS ORDERED: VANCOMYCIN HCL 0 MG in DEXTROSE 5%-WATER 250 ML IV NR (17:45)
--- NOTE | 2018-05-07 18:24 | Operative Report ---
Operative Report DATE OF SURGERY: 05/07/18 PREOPERATIVE DIAGNOSIS: Infected right diabetic foot; status post right fourth and fifth ray amputations POSTOPERATIVE DIAGNOSIS: Same OPERATION: Bedside superficial soft tissue debridement, right lateral foot washout and packing SURGEON: MARICRUZ GALINDO ANESTHESIA: LMAC - None TISSUE REMOVED OR ALTERED: skin COMPLICATIONS: None INTRAOPERATIVE FINDINGS: See below PROCEDURE: Right foot was exposed. Timeout conducted. The right foot open wound lateral aspect at the site of the recent right fourth ray amputation with exposed granulation tissue was vigorously washed with a scrub brush. Exfoliating perimeter callus, and nonviable deep fascia fragments removed manually. Wound irrigated and foot massaged. Foul smell present but no pus draining. The majority of the wound is granulating vigorously. The foot is warm and edematous otherwise. The bedside debridement was felt to be suitable for this evening's project considering the patient just ate. Wound dressed with moist gauze 4 x 4, and foot wrapped with additional 4 x 4's and Kerlix. Impression: Neglected diabetic right foot wound in patient with long history of noncompliance , schizophrenia, with recent amputation of the right fourth ray Recommendations: 1. Intravenous antibiotics, foot elevation; orders written 2. We will check wound tomorrow; additional debridement may be required; otherwise will initiate VAC therapy
--- NOTE | 2018-05-07 19:46 | PDOC H&P ---
History of Present Illness Admission Date/PCP: 05/07/18 16:53 Patient complains of: This patient was recently hospitalized for a fourth ray amputation of the right foot. He was here at [facility] from April 16 - April 26. He was also on long-term antibiotic therapy for osteomyelitis. Patient states that his last dressing change was almost 5 days ago. He has been walking on the foot as well. History of Present Illness: LEEANNE WYLIE is a 57 year old noncompliant diabetic male who was recently hospitalized at [facility] from April 16 through 04/26/2018. He was previously in this institution for his initial fifth ray amputation from April 2017 through June 2017. He underwent fourth ray amputation on April 16. He also had osteomyelitis and received long-term antibiotic therapy. Surgery followed the patient for both admissions along with the hospitalist service. After discharge earlier this month the patient was referred to the wound care center. He states that he had been receiving some help with dressing changes at home. Unfortunately has not had dressing change for over 5 days. He has been walking with a postop shoe. Drainage is extremely foul-smelling and has leached through his gauze wrap as well as his sock. Past Medical History Cardiac Medical History: Reports: Hyperlipidema, Hypertension Cardiac History Note: Peripheral vascular disease Pulmonary Medical History: Reports: Chronic Obstructive Pulmonary Disease (COPD) Endocrine Medical History: Reports: Diabetes Mellitus Type 2 Psychiatric Medical History: Reports: Depression Infectious Medical History: Reports: Other Infectious History Note: Osteomyelitis Past Surgical History Past Surgical History: Reports: Orthopedic Surgery - fifth right toe amputated, Other - Umbilical hernia repair, amputation right 5th digit with 5t metatarsal bone Social History Information Source: Patient, [facility] Records Lives with: Alone, Family Smoking Status: Current Some Day Smoker Frequency of Alcohol Use: None Hx Recreational Drug Use: Yes Drugs: None, Marijuana - Monthly Hx Prescription Drug Abuse: No Family History Family History: DM, Hypertension Parental Family History Reviewed: Yes - Both . Father motor vehicle crash, mother diabetes at 27 years old Children Family History Reviewed: NA - Patient has no children Sibling(s) Family History Reviewed.: Yes - One brother and one sister health unknown Medication/Allergy Home Medications: No Home Medications 05/07/18 Allergies/Adverse Reactions: metformin Allergy (Unknown, Verified 04/22/18 08:05) Review of Systems Constitutional: PRESENT: anorexia, fatigue, weakness Eyes: ABSENT: visual disturbances Ears: ABSENT: hearing changes Nose, Mouth, and Throat: ABSENT: headache(s), mouth pain, sore throat Cardiovascular: ABSENT: chest pain, dyspnea on exertion, edema Respiratory: ABSENT: cough, dyspnea Gastrointestinal: PRESENT: nausea, vomiting. ABSENT: abdominal pain, diarrhea, dysphagia Genitourinary: ABSENT: difficulty urinating, dysuria Musculoskeletal: PRESENT: deformity - Status post fourth and fifth ray amputation right foot Integumentary: PRESENT: wounds - Open surgical wound lateral aspect right foot Neurological: ABSENT: confusion, focal weakness, lack of coordination, syncope, vertigo Psychiatric: ABSENT: anxiety, depression Endocrine: PRESENT: polyuria Hematologic/Lymphatic: ABSENT: easy bleeding, lymphadenopathy Allergic/Immunologic: ABSENT: seasonal rhinorrhea Physical Exam Vital Signs: Temp Pulse Resp BP Pulse Ox 98.7 F 84 18 172/82 H 98 05/07/18 10:01 05/07/18 14:28 05/07/18 14:28 05/07/18 16:01 05/07/18 16:02 General appearance: PRESENT: cooperative, mild distress, obese, well-developed Head exam: PRESENT: atraumatic, normocephalic Eye exam: PRESENT: conjunctiva pale, EOMI. ABSENT: nystagmus, scleral icterus Ear exam: PRESENT: normal external ear exam Mouth exam: PRESENT: dry mucosa, tongue midline Teeth exam: PRESENT: poor dentation Throat exam: ABSENT: tonsillar erythema, tonsillar exudate Neck exam: PRESENT: full ROM. ABSENT: carotid bruit, JVD, lymphadenopathy Respiratory exam: PRESENT: clear to auscultation manuel, symmetrical, unlabored. ABSENT: rales, rhonchi, wheezes Cardiovascular exam: PRESENT: RRR, +S1, +S2 Pulses: PRESENT: normal radial pulses, +1 pedal pulses bilateral GI/Abdominal exam: PRESENT: normal bowel sounds, soft. ABSENT: distended, guarding, tenderness Rectal exam: PRESENT: deferred Extremities exam: PRESENT: tenderness - Right foot. ABSENT: calf tenderness, clubbing Musculoskeletal exam: PRESENT: tenderness Neurological exam: PRESENT: alert, awake, oriented to person, oriented to place , oriented to time, oriented to situation, CN II-XII grossly intact Psychiatric exam: PRESENT: appropriate affect, normal mood Skin exam: PRESENT: other - As above Results Laboratory Results: White blood cell count 21.1. Hemoglobin 10. Platelets 434. Serum chemistries unremarkable except glucose greater than 300. Lactic acid was normal. Assessment & Plan - Diagnosis (1) Osteomyelitis due to type 2 diabetes mellitus Is this a current diagnosis for this admission?: Yes Plan: The patient has an open wound lateral aspect of the right foot status post fourth and fifth ray amputations. The proximal area of the lesion in fact has some granulation tissue. The distal portion of the lesion was in fact exposed under the dressing. There was a horrific odor coming from the lesion. Most likely Pseudomonas. The patient has been on long-term antibiotics several times. Surgery will be seeing the patient has well. He did have amputations for osteomyelitis but with the open wound and his noncompliance he may likely have osteomyelitis in the third ray. (2) Uncontrolled type 2 diabetes mellitus Is this a current diagnosis for this admission?: Yes Plan: We will continue the Humalog sliding scale. I have increased the patient's Lantus from 35-40 units as well. The patient will be placed on a controlled carbohydrate diet. (3) HTN (hypertension) Qualifiers: Hypertension type: essential hypertension Qualified Code(s): I10 - Essential (primary) hypertension Is this a current diagnosis for this admission?: Yes Plan: Continue amlodipine and hydralazine. Curiously there is no CHEYENNE inhibitor or arm. I will likely adjust his regimen prior to discharge. (4) Hyperlipidemia Qualifiers: Hyperlipidemia type: mixed hyperlipidemia Qualified Code(s): E78.2 - Mixed hyperlipidemia Is this a current diagnosis for this admission?: Yes Plan: Continue atorvastatin 40 mg daily. (5) Depression Qualifiers: Depression Type: unspecified Qualified Code(s): F32.9 - Major depressive disorder, single episode, unspecified Is this a current diagnosis for this admission?: Yes Plan: 05/07/18 Continue Trazodone - Time Time Spent: 50 to 70 Minutes - Inpatient Certification Based on my medical assessment, after consideration of the patient's comorbidities, presenting symptoms, or acuity I expect that the services needed warrant INPATIENT care.: Yes I certify that my determination is in accordance with my understanding of Medicare's requirements for reasonable and necessary INPATIENT services [42 CFR 412.3e].: Yes Medical Necessity: Failure to Improve With Outpatient Therapy, Need for IV Antibiotics, Need for Surgery
[2018-05-07] MEDS ORDERED: INSULIN GLARGINE,HUM.REC.ANLOG 300 UNIT/3 ML INSULN.PEN SUBCUT SCH (22:00)
[2018-05-07] MEDS ORDERED: INSULIN LISPRO 100 UNIT/ML 3 ML VIAL SUBCUT ONE (23:00)
[2018-05-07] MEDS: CEFTAZIDIME PENTAHYDRATE 1 GM in DEXTROSE 5%-WATER 50 ML IV SCH (23:34)
[2018-05-07] MEDS: TRAZODONE HCL 50 MG TABLET PO SCH (23:35)
[2018-05-07] MEDS: FAMOTIDINE 20 MG TABLET PO SCH (23:35)
[2018-05-07] MEDS: ATORVASTATIN CALCIUM 40 MG TABLET PO SCH (23:35)
[2018-05-07] MEDS: OXYCODONE-ACETAMINOPHEN 5-325 MG TABLET PO PRN (23:35)
[2018-05-07] MEDS: GABAPENTIN 100 MG CAPSULE PO SCH (23:35)
[2018-05-07] MEDS: HYDRALAZINE HCL 50 MG TABLET PO SCH (23:35)
[2018-05-08] MEDS ORDERED: INSULIN LISPRO 100 UNIT/ML 3 ML VIAL SUBCUT ONE (01:30)
[2018-05-08] MEDS: CEFTAZIDIME PENTAHYDRATE 1 GM in DEXTROSE 5%-WATER 50 ML IV SCH ×3 (05:41→21:04)
[2018-05-08] MEDS: GABAPENTIN 100 MG CAPSULE PO SCH ×2 (05:42→05:55)
[2018-05-08] MEDS: HYDRALAZINE HCL 50 MG TABLET PO SCH ×4 (05:42→21:04)
[2018-05-08] MEDS: NORMAL SALINE 1000 ML 1,000 ML IV PRN ×2 (05:42→14:25)
[2018-05-08] MEDS: OXYCODONE-ACETAMINOPHEN 5-325 MG TABLET PO PRN ×3 (05:43→21:07)
[2018-05-08] MEDS: VANCOMYCIN HCL 750 MG in DEXTROSE 5%-WATER 250 ML IV SCH ×2 (06:34→17:23)
[2018-05-08 06:45] LABS: ABSOLUTE EOSINOPHILS # (AUTO) 0.3 10^3/uL (0.0-0.6); ABSOLUTE MONOCYTES (AUTO) 1.9 10^3/uL (0.1-1.4); ABSOLUTE NEUT (AUTO) 14.8 10^3/uL (1.7-8.2); BASOPHILS % (AUTO) 0.2 % (0-2); EOSINOPHILS % (AUTO) 1.6 % (0-6); HEMATOCRIT 25.9 % (37.9-51.0); HEMOGLOBIN 8.5 g/dL (13.5-17.0); LYMPHOCYTES % (AUTO) 5.7 % (13-45); MEAN CORPUSCULAR HEMOGLOBIN 26.1 pg (27.0-33.4); MEAN CORPUSCULAR HGB CONC 32.8 g/dL (32.0-36.0); MEAN CORPUSCULAR VOLUME 80 fl (80-97); MONOCYTES % (AUTO) 10.4 % (3-13); PLATELET COUNT 370 10^3/uL (150-450); RED BLOOD COUNT 3.26 10^6/uL (4.35-5.55); RED CELL DISTRIBUTION WIDTH 15.2 % (11.5-14.0); SEGMENTED NEUTROPHILS % (AUTO) 82.1 % (42-78); TOTAL CELLS COUNTED % (AUTO) 100 %
[2018-05-08 07:39] LABS: ALANINE AMINOTRANSFERASE 13 U/L (21-72); ALBUMIN 2.4 g/dL (3.5-5.0); ALKALINE PHOSPHATASE 105 U/L (38-126); ANION GAP 12 (5-19); ASPARTATE AMINO TRANSFERASE 13 U/L (17-59); BILIRUBIN,DIRECT 0.3 mg/dL (0.0-0.4); BILIRUBIN,TOTAL 0.5 mg/dL (0.2-1.3); BLOOD UREA NITROGEN 18 mg/dL (7-20); CARBON DIOXIDE 24 mmol/L (22-30); CHLORIDE 101 mmol/L (98-107); GLUCOSE 85 mg/dL (75-110); PHOSPHORUS 2.3 mg/dL (2.5-4.5); POTASSIUM 3.9 mmol/L (3.6-5.0); SODIUM 136.6 mmol/L (137-145); TOTAL PROTEIN 6.4 g/dL (6.3-8.2)
[2018-05-08 07:50] LABS: C-REACTIVE PROTEIN 233.8 mg/L (<10.0)
[2018-05-08] MEDS: ACETAMINOPHEN 325 MG TABLET PO PRN (09:29)
[2018-05-08] MEDS: ENOXAPARIN SODIUM INJ 40 MG/0.4 ML DISP.SYRIN SUBCUT SCH (09:30)
[2018-05-08] MEDS: TRAZODONE HCL 50 MG TABLET PO SCH ×2 (09:30→21:04)
[2018-05-08] MEDS: FAMOTIDINE 20 MG TABLET PO SCH ×2 (09:30→21:05)
[2018-05-08] MEDS: AMLODIPINE BESYLATE 10 MG TABLET PO SCH (09:30)
[2018-05-08] MEDS: INSULIN LISPRO 100 UNIT/ML 3 ML VIAL SUBCUT PRN (11:20)
--- NOTE | 2018-05-08 13:56 | PDOC PROGRESS REPORT ---
Subjective Reason For Visit: POST OF INFECTION RIGHT FOOT Physical Exam Vital Signs: Temp Pulse Resp BP Pulse Ox 101.7 F H 69 18 111/58 L 97 05/08/18 07:34 05/08/18 07:34 05/08/18 07:34 05/08/18 07:34 05/08/18 07:34 Intake & Output 05/07/18 05/08/18 05/09/18 06:59 06:59 06:59 Intake Total 2956 250 Output Total 925 Balance 2031 250 Weight 78.6 kg General appearance: PRESENT: cooperative, mild distress, well-developed, other Neck exam: ABSENT: carotid bruit, JVD, lymphadenopathy Respiratory exam: PRESENT: clear to auscultation manuel, symmetrical. ABSENT: rales, rhonchi, stridor Cardiovascular exam: PRESENT: RRR, +S1, +S2, systolic murmur - 2/6 GI/Abdominal exam: PRESENT: normal bowel sounds, soft. ABSENT: distended, tenderness Neurological exam: PRESENT: other - Lethargic today. ABSENT: alert Psychiatric exam: PRESENT: appropriate affect - reflects pain. ABSENT: agitated Focused psych exam: ABSENT: restlessness Additional comments: Wound base cleaner signs than yesterday with saline wet to dry dressing. Surgery debrided as well. Results Laboratory Results: 05/08/18 06:21 05/08/18 06:21 05/07/18 05/08/18 05/08/18 21:34 06:21 06:21 WBC 18.0 H RBC 3.26 L Hgb 8.5 L Hct 25.9 L MCV 80 MCH 26.1 L MCHC 32.8 RDW 15.2 H Plt Count 370 Seg Neutrophils % 82.1 H Lymphocytes % 5.7 L Monocytes % 10.4 Eosinophils % 1.6 Basophils % 0.2 Absolute Neutrophils 14.8 H Absolute Lymphocytes 1.0 Absolute Monocytes 1.9 H Absolute Eosinophils 0.3 Absolute Basophils 0.0 Sodium 136.6 L Potassium 3.9 Chloride 101 Carbon Dioxide 24 Anion Gap 12 BUN 18 Creatinine 1.49 H Est GFR ( Amer) 58 L Est GFR (Non-Af Amer) 48 L Glucose 609 H* 85 Calcium 8.0 L Phosphorus 2.3 L Magnesium 2.2 Total Bilirubin 0.5 AST 13 L ALT 13 L Alkaline Phosphatase 105 C-Reactive Protein 233.8 H Total Protein 6.4 Albumin 2.4 L Assessment & Plan - Diagnosis (1) Osteomyelitis due to type 2 diabetes mellitus Is this a current diagnosis for this admission?: Yes Plan: The patient has an open wound lateral aspect of the right foot status post fourth and fifth ray amputations. The proximal area of the lesion in fact has some granulation tissue. The distal portion of the lesion was in fact exposed under the dressing. There was a horrific odor coming from the lesion. Most likely Pseudomonas. The patient has been on long-term antibiotics several times. Surgery will be seeing the patient has well. He did have amputations for osteomyelitis but with the open wound and his noncompliance he may likely have osteomyelitis in the third ray. 05/08/18- CRP >200. Will need 6 wweks of IV ABX. Hyperbaric oxygem might also be helpful over the manager terminal. Continue Vanco and Fortaz. (2) Uncontrolled type 2 diabetes mellitus Is this a current diagnosis for this admission?: Yes Plan: We will continue the Humalog sliding scale. I have increased the patient's Lantus from 35-40 units as well. The patient will be placed on a controlled carbohydrate diet. 05/08/18- Increased lantus to 50 units. Stressed dietary compliance as well. I did add gabapentin to help with pain but stopped it in case it was contributing to clinical changes today. (3) HTN (hypertension) Qualifiers: Hypertension type: essential hypertension Qualified Code(s): I10 - Essential (primary) hypertension Is this a current diagnosis for this admission?: Yes Plan: Continue amlodipine and hydralazine. Curiously there is no CHEYENNE inhibitor or arm. I will likely adjust his regimen prior to discharge. 05/08/18- good control today. Consider CHEYENNE (4) Hyperlipidemia Qualifiers: Hyperlipidemia type: mixed hyperlipidemia Qualified Code(s): E78.2 - Mixed hyperlipidemia Is this a current diagnosis for this admission?: Yes Plan: Continue atorvastatin 40 mg daily. (5) Depression Qualifiers: Depression Type: unspecified Qualified Code(s): F32.9 - Major depressive disorder, single episode, unspecified Is this a current diagnosis for this admission?: Yes Plan: 05/07/18 Continue Trazodone - Time Time Spent with patient: 25-34 minutes Medications reviewed and adjusted accordingly: Yes
[2018-05-08] MEDS: INSULIN GLARGINE,HUM.REC.ANLOG 300 UNIT/3 ML INSULN.PEN SUBCUT SCH ×2 (14:12→21:04)
[2018-05-08] MEDS: ONDANSETRON 4 MG TAB.RAPDIS PO PRN (16:30)
--- NOTE | 2018-05-08 16:52 | PDOC PROGRESS REPORT ---
Subjective Progress Note for:: 05/08/18 Reason For Visit: POST OF INFECTION RIGHT FOOT Physical Exam Vital Signs: Temp Pulse Resp BP Pulse Ox 101.7 F H 69 18 111/58 L 97 05/08/18 07:34 05/08/18 07:34 05/08/18 07:34 05/08/18 07:34 05/08/18 07:34 Intake & Output 05/07/18 05/08/18 05/09/18 06:59 06:59 06:59 Intake Total 2956 1724 Output Total 925 Balance 2031 1724 Weight 78.6 kg Results Laboratory Results: 05/08/18 06:21 05/08/18 06:21 05/07/18 05/08/18 05/08/18 21:34 06:21 06:21 WBC 18.0 H RBC 3.26 L Hgb 8.5 L Hct 25.9 L MCV 80 MCH 26.1 L MCHC 32.8 RDW 15.2 H Plt Count 370 Seg Neutrophils % 82.1 H Lymphocytes % 5.7 L Monocytes % 10.4 Eosinophils % 1.6 Basophils % 0.2 Absolute Neutrophils 14.8 H Absolute Lymphocytes 1.0 Absolute Monocytes 1.9 H Absolute Eosinophils 0.3 Absolute Basophils 0.0 Sodium 136.6 L Potassium 3.9 Chloride 101 Carbon Dioxide 24 Anion Gap 12 BUN 18 Creatinine 1.49 H Est GFR ( Amer) 58 L Est GFR (Non-Af Amer) 48 L Glucose 609 H* 85 Calcium 8.0 L Phosphorus 2.3 L Magnesium 2.2 Total Bilirubin 0.5 AST 13 L ALT 13 L Alkaline Phosphatase 105 C-Reactive Protein 233.8 H Total Protein 6.4 Albumin 2.4 L Assessment & Plan - Plan Summary Plan Summary: This is a 57-year-old male status post bedside washout and debridement of his right foot wound. I have changed the dressing today. His wound looks good. There is no sign of active infection. The patient should wash his foot with soap and water twice daily. Continue with damp dressing changes twice daily. Tight blood glucose control is essential. Follow-up with the wound care clinic as previously recommended. I will see the patient again on an as-needed basis. Please renotify with any questions or concerns.
[2018-05-08] MEDS: ATORVASTATIN CALCIUM 40 MG TABLET PO SCH (21:05)
[2018-05-09] MEDS: CEFTAZIDIME PENTAHYDRATE 1 GM in DEXTROSE 5%-WATER 50 ML IV SCH ×3 (05:25→21:38)
[2018-05-09] MEDS: VANCOMYCIN HCL 750 MG in DEXTROSE 5%-WATER 250 ML IV SCH ×2 (05:27→17:34)
[2018-05-09] MEDS: HYDRALAZINE HCL 50 MG TABLET PO SCH ×3 (05:36→21:45)
[2018-05-09 06:15] LABS: HEMATOCRIT 26.2 % (37.9-51.0); HEMOGLOBIN 8.5 g/dL (13.5-17.0); MEAN CORPUSCULAR HEMOGLOBIN 25.7 pg (27.0-33.4); MEAN CORPUSCULAR HGB CONC 32.4 g/dL (32.0-36.0); MEAN CORPUSCULAR VOLUME 80 fl (80-97); PLATELET COUNT 358 10^3/uL (150-450); RED BLOOD COUNT 3.29 10^6/uL (4.35-5.55); RED CELL DISTRIBUTION WIDTH 15.4 % (11.5-14.0); WHITE BLOOD COUNT 18.8 10^3/uL (4.0-10.5)
[2018-05-09 06:31] LABS: ANION GAP 10 (5-19); BLOOD UREA NITROGEN 19 mg/dL (7-20); CALCIUM 8.1 mg/dL (8.4-10.2); CARBON DIOXIDE 24 mmol/L (22-30); CHLORIDE 105 mmol/L (98-107); GLUCOSE 53 mg/dL (75-110); POTASSIUM 3.1 mmol/L (3.6-5.0); SODIUM 138.7 mmol/L (137-145)
[2018-05-09 06:38] LABS: VANCOMYCIN,TROUGH 15.2 ug/mL (5.0-20.0)
[2018-05-09] MEDS: INSULIN LISPRO 100 UNIT/ML 3 ML VIAL SUBCUT PRN (08:11)
[2018-05-09] MEDS: POLYETHYLENE GLYCOL 3350 POWDER 17 GM/1 PACKET PO SCH (10:41)
[2018-05-09] MEDS: DOCUSATE SODIUM 100 MG CAPSULE PO SCH (10:42)
[2018-05-09] MEDS: ENOXAPARIN SODIUM INJ 40 MG/0.4 ML DISP.SYRIN SUBCUT SCH (10:43)
[2018-05-09] MEDS: MULTIVIT-STRESS FORMULA/ZINC TABLET PO SCH (10:43)
[2018-05-09] MEDS: TRAZODONE HCL 50 MG TABLET PO SCH ×2 (10:43→21:45)
[2018-05-09] MEDS: FAMOTIDINE 20 MG TABLET PO SCH ×2 (10:43→21:45)
[2018-05-09] MEDS: AMLODIPINE BESYLATE 10 MG TABLET PO SCH (10:43)
[2018-05-09] MEDS: OXYCODONE-ACETAMINOPHEN 5-325 MG TABLET PO PRN ×2 (11:22→21:42)
[2018-05-09] MEDS: ACETAMINOPHEN 325 MG TABLET PO PRN (11:23)
[2018-05-09] MEDS ORDERED: BISACODYL 10 MG SUPP.RECT PR PRN (12:17)
--- NOTE | 2018-05-09 12:25 | PDOC PROGRESS REPORT ---
Subjective Progress Note for:: 05/09/18 Subjective:: Still not feeling well. Complains of abdominal discomfort and very poor appetite. Reason For Visit: POST OF INFECTION RIGHT FOOT Physical Exam Vital Signs: Temp Pulse Resp BP Pulse Ox 99.2 F 73 16 155/67 H 96 05/09/18 08:11 05/09/18 08:11 05/09/18 08:11 05/09/18 08:11 05/09/18 08:11 Intake & Output 05/08/18 05/09/18 05/10/18 06:59 06:59 06:59 Intake Total 2956 3824 250 Output Total 925 750 Balance 2031 3074 250 Weight 78.6 kg 79.3 kg General appearance: PRESENT: cooperative, mild distress, obese, well-developed Head exam: PRESENT: atraumatic, normocephalic Eye exam: PRESENT: conjunctiva pink, EOMI. ABSENT: scleral icterus Mouth exam: PRESENT: moist, tongue midline Neck exam: PRESENT: full ROM. ABSENT: carotid bruit, JVD, lymphadenopathy Respiratory exam: PRESENT: clear to auscultation manuel, symmetrical, unlabored. ABSENT: rales, rhonchi, wheezes Cardiovascular exam: PRESENT: RRR, +S1, +S2 GI/Abdominal exam: PRESENT: distended, hypoactive bowel sounds, soft, other - Tympanic Extremities exam: ABSENT: pedal edema Musculoskeletal exam: PRESENT: other - Dressing on right foot Neurological exam: PRESENT: alert, awake, oriented to person, oriented to place , oriented to situation, CN II-XII grossly intact Psychiatric exam: PRESENT: appropriate affect, normal mood Focused psych exam: ABSENT: restlessness Skin exam: PRESENT: other - Right foot wound Results Laboratory Results: 05/09/18 05:53 05/09/18 05:53 05/09/18 05/09/18 05:53 05:53 WBC 18.8 H RBC 3.29 L Hgb 8.5 L Hct 26.2 L MCV 80 MCH 25.7 L MCHC 32.4 RDW 15.4 H Plt Count 358 Sodium 138.7 Potassium 3.1 L Chloride 105 Carbon Dioxide 24 Anion Gap 10 BUN 19 Creatinine 1.41 H Est GFR ( Amer) > 60 Est GFR (Non-Af Amer) 51 L Glucose 53 L Calcium 8.1 L Magnesium 2.2 Assessment & Plan - Diagnosis (1) Osteomyelitis due to type 2 diabetes mellitus Is this a current diagnosis for this admission?: Yes Plan: The patient has an open wound lateral aspect of the right foot status post fourth and fifth ray amputations. The proximal area of the lesion in fact has some granulation tissue. The distal portion of the lesion was in fact exposed under the dressing. There was a horrific odor coming from the lesion. Most likely Pseudomonas. The patient has been on long-term antibiotics several times. Surgery will be seeing the patient has well. He did have amputations for osteomyelitis but with the open wound and his noncompliance he may likely have osteomyelitis in the third ray. 05/08/18- CRP >200. Will need 6 wweks of IV ABX. Hyperbaric oxygem might also be helpful over the buttermaker continuous churn. Continue Vanco and Fortaz. 05/09/2018-please also see surgery note. I did not unwrap the wound. Surgery reports that there is good granulation tissue on the wound does not look severely compromised. Continue antibiotic therapy. (2) Uncontrolled type 2 diabetes mellitus Is this a current diagnosis for this admission?: Yes Plan: We will continue the Humalog sliding scale. I have increased the patient's Lantus from 35-40 units as well. The patient will be placed on a controlled carbohydrate diet. 05/08/18- Increased lantus to 50 units. Stressed dietary compliance as well. I did add gabapentin to help with pain but stopped it in case it was contributing to clinical changes today. 05/09/2018-with his decreased appetite I may need to decrease his Lantus. Continue sliding scale coverage. (3) HTN (hypertension) Qualifiers: Hypertension type: essential hypertension Qualified Code(s): I10 - Essential (primary) hypertension Is this a current diagnosis for this admission?: Yes Plan: Continue amlodipine and hydralazine. Curiously there is no CHEYENNE inhibitor or arm. I will likely adjust his regimen prior to discharge. 05/08/18- good control today. Consider CHEYENNE 05/09/2018-continue current medications and monitor electrolytes. (4) Hyperlipidemia Qualifiers: Hyperlipidemia type: mixed hyperlipidemia Qualified Code(s): E78.2 - Mixed hyperlipidemia Is this a current diagnosis for this admission?: Yes Plan: Continue atorvastatin 40 mg daily. (5) Depression Qualifiers: Depression Type: unspecified Qualified Code(s): F32.9 - Major depressive disorder, single episode, unspecified Is this a current diagnosis for this admission?: Yes Plan: 05/07/18 Continue Trazodone (6) Constipation Qualifiers: Constipation type: drug induced constipation Qualified Code(s): K59.03 - Drug induced constipation Is this a current diagnosis for this admission?: Yes Plan: Patient has not had a bowel movement. This could be contributing to his abdominal discomfort. I will step up the stool softeners and laxatives in addition to obtaining a CT scan of the abdomen to rule out pathology. I have ordered a repeat liver panel and lipase level. - Time Time Spent with patient: 25-34 minutes Medications reviewed and adjusted accordingly: Yes
[2018-05-09] MEDS ORDERED: POTASSI CL 20 MEQ/50 ML RIDER 20 MEQ/50 ML RTUPB IV ONE (13:00)
[2018-05-09] MEDS ORDERED: MAGNESIUM CITRATE 296 ML BOTTLE PO ONE (13:00)
--- NOTE | 2018-05-09 13:12 | RADIOLOGY REPORT (SQ) ---
EXAM DESCRIPTION: FOOT RIGHT COMPLETE COMPLETED DATE/TIME: 05/09/2018 11:27 am REASON FOR STUDY: foot pain, s/p amputation COMPARISON: 04/16/2018. NUMBER OF VIEWS: Three views. TECHNIQUE: AP, lateral and oblique radiographic images acquired of the right foot. LIMITATIONS: None. FINDINGS: BONES: Since the previous study of 04/16/2018, there has been amputation of the right 4th metatarsal and right 4th toe. Bone fragments are noted in region of prominent soft tissue deformity in this region. Marked demineralization of the right 3rd cuneiform and anterior cuboid are noted. O steomyelitis is not excluded. Vascular calcification is seen. Degenerative changes 1st metatarsal-p halangeal joint and 1st DIP joint. Soft tissue swelling dorsally. JOINTS: No effusions. SOFT TISSUES: Soft tissue swelling dorsally. Prominent surgical soft tissue defect noted lateral rig ht foot. IMPRESSION: Interval amputation of right 4th metatarsal right 4th toe. The possibility of osteomyel itis of the 3rd cuneiform and tarsal cuboid cannot be excluded. Soft tissue deformity laterally. So ft tissue swelling dorsally. TECHNICAL DOCUMENTATION: JOB ID: [id number] [employer]- All Rights Reserved Reading location - IP/workstation name: [email or web address]
--- NOTE | 2018-05-09 13:23 | PDOC PROGRESS REPORT ---
Subjective Reason For Visit: POST OF INFECTION RIGHT FOOT Physical Exam Vital Signs: Temp Pulse Resp BP Pulse Ox 99.2 F 73 16 155/67 H 96 05/09/18 08:11 05/09/18 08:11 05/09/18 08:11 05/09/18 08:11 05/09/18 08:11 Intake & Output 05/08/18 05/09/18 05/10/18 06:59 06:59 06:59 Intake Total 2956 3824 250 Output Total 925 750 Balance 2030 3074 250 Weight 78.6 kg 79.3 kg Results Laboratory Results: 05/09/18 05:53 05/09/18 05:53 05/09/18 05/09/18 05:53 05:53 WBC 18.8 H RBC 3.29 L Hgb 8.5 L Hct 26.2 L MCV 80 MCH 25.7 L MCHC 32.4 RDW 15.4 H Plt Count 358 Sodium 138.7 Potassium 3.1 L Chloride 105 Carbon Dioxide 24 Anion Gap 10 BUN 19 Creatinine 1.41 H Est GFR ( Amer) > 60 Est GFR (Non-Af Amer) 51 L Glucose 53 L Calcium 8.1 L Magnesium 2.2 Impressions: Foot X-Ray 05/09/18 00:00 IMPRESSION: Interval amputation of right 4th metatarsal right 4th toe. The possibility of osteomyelitis of the 3rd cuneiform and tarsal cuboid cannot be excluded. Soft tissue deformity laterally. Soft tissue swelling dorsally. Assessment & Plan - Diagnosis (1) Wound of right foot Is this a current diagnosis for this admission?: Yes - Plan Summary Plan Summary: This is a 57-year-old male status post bedside washout and debridement of his right foot wound. I have changed the dressing again today. His wound looks good. There is no sign of active infection, abscess, erythema, purulent drainage. The patient still has a markedly elevated white blood cell count. I can not find evidence of infection in the right foot. I have discussed this with the patient's attending physician, who is continuing the investigation. I have ordered an x-ray of the right foot and reviewed the images and report. I cannot identify any evidence of extensive osteomyelitis. The patient should wash his foot with soap and water twice daily. Continue with damp dressing changes twice daily. Tight blood glucose control is essential. Follow-up with the wound care clinic as previously recommended.
--- NOTE | 2018-05-09 13:40 | RADIOLOGY REPORT (SQ) ---
EXAM DESCRIPTION: CT ABD/PELVIS NO ORAL OR IV COMPLETED DATE/TIME: 05/09/2018 12:41 pm REASON FOR STUDY: elevated WBC with abdo pain and elevated WBC COMPARISON: None. TECHNIQUE: CT scan of the abdomen and pelvis performed without intravenous or oral contrast. Images reviewed with lung, soft tissue, and bone windows. Reconstructed coronal and sagittal MPR images revi ewed. All images stored on PACS. All CT scanners at this facility use dose modulation, iterative reconstruction, and/or weight based d osing when appropriate to reduce radiation dose to as low as reasonably achievable (ALARA). [facility]: Dose Right [facility]: CareDose [facility]: Dose Right [facility]: Teradose 4D [facility]: Smart Abcellute RADIATION DOSE: CT Rad equipment meets quality standard of care and radiation dose reduction techniq ues were employed. CTDIvol: 8.0 mGy. DLP: 424 mGy-cm.mGy. LIMITATIONS: None. FINDINGS: LOWER CHEST: Chronic scarring in lung bases. NON-CONTRASTED LIVER, SPLEEN, ADRENALS: Liver: No abnormality. Spleen: No abnormality. Adrenals: No abnormality. PANCREAS: No abnormality. GALLBLADDER: Cholelithiasis. RIGHT KIDNEY AND URETER: No abnormality . LEFT KIDNEY AND URETER: No abnormality. Cortical cyst upper pole left kidney. AORTA AND RETROPERITONEUM: Atherosclerotic change of abdominal aorta and iliac vessels. BOWEL AND PERITONEAL CAVITY: Changes of constipation. APPENDIX: Hyperdense material noted within the appendix (coronal image [id number] series 601). - PELVIS, BLADDER, AND ABDOMINAL WALL:Urinary bladder: Marked bladder distention. The bladder measure s 15 cm in height x 11.5 cm in transverse diameter x11.5 cm in AP diameter. Consider catheterization . Prostate and seminal vesicles: No abnormality. BONES: There is evidence of marked spondylosis L3-4 with sclerosis and irregularity of inferior endp late L3 and superior endplate of L4 with compression of L4. The findings are consistent with chronic discitis and osteomyelitis previously noted. Broad-based circumferential bulging disc L4-5 with pos terior central and right lateral disc protrusion. Relative narrowing of the spinal canal at the disc level consistent with central canal stenosis and changes consistent with bilateral foraminal stenosi s. Bilateral foraminal narrowing at L5-S1. IMPRESSION: 1. Marked bladder distention. If clinically indicated, consider catheterization 2. Ch olelithiasis. 3. Changes compatible with chronic discitis L3-4 and compression of the L4 vertebra a gain noted. At L4-5 there is evidence of posterior central disc protrusion extending laterally to th e right. Central canal stenosis. At L5-S1, foramina stenosis bilaterally. 4. Constipation. COMMENT: Quality ID # [id number]: Final reports with documentation of one or more dose reduction techniques (e.g., Automated exposure control, adjustment of the mA and/or kV according to patient size, use of iterative reconstruction technique) TECHNICAL DOCUMENTATION: JOB ID: [id number] [employer]- All Rights Reserved Reading location - IP/workstation name: [email or web address]
[2018-05-09] MEDS ORDERED: ONDANSETRON HCL INJ/PF 4 MG/2 ML SDV IV PRN (20:38)
[2018-05-09] MEDS: INSULIN GLARGINE,HUM.REC.ANLOG 300 UNIT/3 ML INSULN.PEN SUBCUT SCH (21:44)
[2018-05-09] MEDS: TAMSULOSIN HCL 0.4 MG CAP.SR.24H PO SCH (21:44)
[2018-05-09] MEDS: ATORVASTATIN CALCIUM 40 MG TABLET PO SCH (21:45)
[2018-05-10] MEDS: CEFTAZIDIME PENTAHYDRATE 1 GM in DEXTROSE 5%-WATER 50 ML IV SCH ×3 (06:10→22:45)
[2018-05-10] MEDS: NORMAL SALINE 1000 ML 1,000 ML IV PRN ×2 (06:11→22:45)
[2018-05-10 06:14] LABS: RED BLOOD COUNT 3.09 10^6/uL (4.35-5.55); WHITE BLOOD COUNT 17.5 10^3/uL (4.0-10.5)
[2018-05-10 06:15] LABS: HEMATOCRIT 24.7 % (37.9-51.0); HEMOGLOBIN 8.1 g/dL (13.5-17.0); MEAN CORPUSCULAR HEMOGLOBIN 26.4 pg (27.0-33.4); MEAN CORPUSCULAR VOLUME 80 fl (80-97); PLATELET COUNT 335 10^3/uL (150-450); RED CELL DISTRIBUTION WIDTH 15.7 % (11.5-14.0)
[2018-05-10] MEDS: HYDRALAZINE HCL 50 MG TABLET PO SCH ×3 (06:23→23:08)
[2018-05-10 06:26] LABS: ALANINE AMINOTRANSFERASE 8 U/L (21-72); ALBUMIN 2.3 g/dL (3.5-5.0); ALKALINE PHOSPHATASE 96 U/L (38-126); ANION GAP 10 (5-19); ASPARTATE AMINO TRANSFERASE 9 U/L (17-59); BILIRUBIN,DIRECT 0.3 mg/dL (0.0-0.4); BILIRUBIN,TOTAL 0.3 mg/dL (0.2-1.3); BLOOD UREA NITROGEN 19 mg/dL (7-20); CALCIUM 7.7 mg/dL (8.4-10.2); CARBON DIOXIDE 24 mmol/L (22-30); CHLORIDE 105 mmol/L (98-107); GLUCOSE 106 mg/dL (75-110); LIPASE 15.4 U/L (23-300); POTASSIUM 3.7 mmol/L (3.6-5.0); SODIUM 138.9 mmol/L (137-145); TOTAL PROTEIN 6.1 g/dL (6.3-8.2)
[2018-05-10] MEDS: VANCOMYCIN HCL 750 MG in DEXTROSE 5%-WATER 250 ML IV SCH ×2 (07:17→18:24)
[2018-05-10] MEDS: OXYCODONE-ACETAMINOPHEN 5-325 MG TABLET PO PRN ×2 (08:23→22:45)
[2018-05-10] MEDS: AMLODIPINE BESYLATE 10 MG TABLET PO SCH (09:24)
[2018-05-10] MEDS: POTASSIUM CHLORIDE 10 MEQ CAPSULE.ER PO SCH (11:39)
[2018-05-10] MEDS: ENOXAPARIN SODIUM INJ 40 MG/0.4 ML DISP.SYRIN SUBCUT SCH (11:39)
[2018-05-10] MEDS: DOCUSATE SODIUM 100 MG CAPSULE PO SCH (11:39)
[2018-05-10] MEDS: TRAZODONE HCL 50 MG TABLET PO SCH ×2 (11:39→23:08)
[2018-05-10] MEDS: POLYETHYLENE GLYCOL 3350 POWDER 17 GM/1 PACKET PO SCH (11:39)
[2018-05-10] MEDS: FAMOTIDINE 20 MG TABLET PO SCH ×2 (11:40→23:09)
[2018-05-10] MEDS: MULTIVIT-STRESS FORMULA/ZINC TABLET PO SCH (11:40)
--- NOTE | 2018-05-10 11:46 | PDOC PROGRESS REPORT ---
Subjective Progress Note for:: 05/10/18 Subjective:: Still not feeling well. Complains of abdominal discomfort and very poor appetite. He does report significant improvement draining the distended bladder. The patient is quite upset this morning about several issues. Patient navigator will be seeing the patient. Reason For Visit: POST OF INFECTION RIGHT FOOT Physical Exam Vital Signs: Temp Pulse Resp BP Pulse Ox 97.9 F 70 16 159/62 H 99 05/10/18 07:38 05/10/18 07:38 05/10/18 07:38 05/10/18 07:38 05/10/18 07:38 Intake & Output 05/09/18 05/10/18 05/11/18 06:59 06:59 06:59 Intake Total 3824 1350 50 Output Total 750 1800 Balance 3074 -450 50 Weight 79.3 kg 79.3 kg General appearance: PRESENT: cooperative, mild distress, well-developed, other - Very upset this morning Head exam: PRESENT: atraumatic, normocephalic Mouth exam: PRESENT: moist Teeth exam: PRESENT: poor dentation Neck exam: ABSENT: carotid bruit, JVD, lymphadenopathy Respiratory exam: PRESENT: clear to auscultation manuel, symmetrical, unlabored. ABSENT: rales, rhonchi, stridor, wheezes Cardiovascular exam: PRESENT: RRR, +S1, +S2 GI/Abdominal exam: PRESENT: normal bowel sounds, soft. ABSENT: distended, tenderness Neurological exam: PRESENT: alert, awake, oriented to person, oriented to place , oriented to time, oriented to situation, CN II-XII grossly intact, other - Patient exhibited intact sensation that was symmetrical on the legs and lower abdomen. Neurogenic bladder discovered on ultrasound. Despite constipation he also has no urge to defecate. Psychiatric exam: PRESENT: agitated Skin exam: PRESENT: dry, warm. ABSENT: abrasion, rash Results Laboratory Results: 05/10/18 05:15 05/10/18 05:15 05/10/18 05/10/18 05:15 05:15 WBC 17.5 H RBC 3.09 L Hgb 8.1 L Hct 24.7 L MCV 80 MCH 26.4 L MCHC 33.0 RDW 15.7 H Plt Count 335 Sodium 138.9 Potassium 3.7 Chloride 105 Carbon Dioxide 24 Anion Gap 10 BUN 19 Creatinine 1.24 Est GFR ( Amer) > 60 Est GFR (Non-Af Amer) > 60 Glucose 106 Calcium 7.7 L Total Bilirubin 0.3 AST 9 L ALT 8 L Alkaline Phosphatase 96 Total Protein 6.1 L Albumin 2.3 L Lipase 15.4 L Impressions: Foot X-Ray 05/09/18 00:00 IMPRESSION: Interval amputation of right 4th metatarsal right 4th toe. The possibility of osteomyelitis of the 3rd cuneiform and tarsal cuboid cannot be excluded. Soft tissue deformity laterally. Soft tissue swelling dorsally. Abdomen/Pelvis CT 05/09/18 12:30 IMPRESSION: 1. Marked bladder distention. If clinically indicated, consider catheterization 2. Cholelithiasis. 3. Changes compatible with chronic discitis L3-4 and compression of the L4 vertebra again noted. At L4-5 there is evidence of posterior central disc protrusion extending laterally to the right. Central canal stenosis. At L5-S1, foramina stenosis bilaterally. 4. Constipation. Assessment & Plan - Diagnosis (1) Osteomyelitis of lumbar vertebra Is this a current diagnosis for this admission?: Yes Plan: 05/10/2018-review of old records reveals ostium mellitus diagnosed in November 2017. The patient was transferred to [facility]. He received 6 weeks of IV antibiotics and was transferred to an inpatient rehab facility. At the time of discharge she did not follow-up with any providers. He has had one hospitalization since then but prior to this admission. His C-reactive protein was greater than 200 on admission. He is receiving IV antibiotics. Depending on the results of the repeat MRI study he may need to see neurosurgery. (2) Neurogenic bladder Is this a current diagnosis for this admission?: Yes Plan: 05/10/2018-CT scan obtained yesterday for abdominal pain revealed significantly distended bladder. The patient did not have an urge to urinate. Lopez catheter was inserted and 1.2 L of urine was drained. We have with the Lopez catheter in place. Concern for nerve compression with his osteomyelitis of the spine. Rechecking MRI today and compared to November 2017 study where the osteomyelitis was first identified. (3) Osteomyelitis due to type 2 diabetes mellitus Is this a current diagnosis for this admission?: Yes Plan: The patient has an open wound lateral aspect of the right foot status post fourth and fifth ray amputations. The proximal area of the lesion in fact has some granulation tissue. The distal portion of the lesion was in fact exposed under the dressing. There was a horrific odor coming from the lesion. Most likely Pseudomonas. The patient has been on long-term antibiotics several times. Surgery will be seeing the patient has well. He did have amputations for osteomyelitis but with the open wound and his noncompliance he may likely have osteomyelitis in the third ray. 05/08/18- CRP >200. Will need 6 wweks of IV ABX. 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 Continue Vanco and Fortaz. 05/09/2018-please also see surgery note. I did not unwrap the wound. Surgery reports that there is good granulation tissue on the wound does not look severely compromised. Continue antibiotic therapy. 05/10/2018-the foot wound looks clean. Unfortunately CT scan of the abdomen revealed osteomyelitis at the L3-L4 area. This in fact was diagnosed and treated in November. Patient does not complain of back pain. See further discussion below. We are continuing his current antibiotic therapy which in light of this finding will require at least 6 weeks if not more of intravenous administration. (4) Uncontrolled type 2 diabetes mellitus Is this a current diagnosis for this admission?: Yes Plan: We will continue the Humalog sliding scale. I have increased the patient's Lantus from 35-40 units as well. The patient will be placed on a controlled carbohydrate diet. 05/08/18- Increased lantus to 50 units. Stressed dietary compliance as well. I did add gabapentin to help with pain but stopped it in case it was contributing to clinical changes today. 05/09/2018-with his decreased appetite I may need to decrease his Lantus. Continue sliding scale coverage. 05/10/2018-the patient is on daily Lantus. His current dose is 50 units. He is on a carbohydrate consistent diet while an inpatient. He is on Humalog sliding scale. He has well and even though Luis next week he can exhibited good glucose control on this regimen. (5) HTN (hypertension) Qualifiers: Hypertension type: essential hypertension Qualified Code(s): I10 - Essential (primary) hypertension Is this a current diagnosis for this admission?: Yes Plan: Continue amlodipine and hydralazine. Curiously there is no CHEYENNE inhibitor or arm. I will likely adjust his regimen prior to discharge. 05/08/18- good control today. Consider CHEYENNE 05/09/2018-continue current medications and monitor electrolytes. 05/10/2018-continue current treatment regimen. (6) Hyperlipidemia Qualifiers: Hyperlipidemia type: mixed hyperlipidemia Qualified Code(s): E78.2 - Mixed hyperlipidemia Is this a current diagnosis for this admission?: Yes Plan: Continue atorvastatin 40 mg daily. 05/10/2018-continue atorvastatin daily (7) Depression Qualifiers: Depression Type: unspecified Qualified Code(s): F32.9 - Major depressive disorder, single episode, unspecified Is this a current diagnosis for this admission?: Yes Plan: 05/07/18 Continue Trazodone 05/10/2018-the patient was upset this morning. Had to do with some care issues. He is also n.p.o. for possible surgery and this is somewhat upsetting for him also. We will continue trazodone for now and change or increase medications if needed. (8) Constipation Qualifiers: Constipation type: drug induced constipation Qualified Code(s): K59.03 - Drug induced constipation Is this a current diagnosis for this admission?: Yes Plan: Patient has not had a bowel movement. This could be contributing to his abdominal discomfort. I will step up the stool softeners and laxatives in addition to obtaining a CT scan of the abdomen to rule out pathology. I have ordered a repeat liver panel and lipase level. 05/10/2018-despite constipation noted on the CT scan the patient does not have an urge to defecate. This could be related to osteomyelitis and nerve compression. Await MRI findings. - Time Time Spent with patient: 25-34 minutes Medications reviewed and adjusted accordingly: Yes
--- NOTE | 2018-05-10 15:16 | RADIOLOGY REPORT (SQ) ---
EXAM DESCRIPTION: MRI LUMBAR SPINE WITHOUT COMPLETED DATE/TIME: 05/10/2018 2:49 pm REASON FOR STUDY: Osteomyelitis/nerve compression- compare to november COMPARISON: 12/08/2017 and 10/01/2017. TECHNIQUE: Sagittal and Axial imaging includes T1, T2, STIR and gradient echo sequences. Coronal T2/ HASTE imaging. LIMITATIONS: None. FINDINGS: VISUALIZED UPPER ABDOMEN: Limited evaluation. No acute or suspicious findings suggested. SEGMENTATION: No transitional anatomy. The lowest well-developed disc space is labeled L5-S1. ALIGNMENT: Anatomic. VERTEBRAE: Stable compression deformity of the superior endplate of L4. Otherwise intact. BONE MARROW: Normal. No marrow replacement or reactive changes. DISC SIGNAL: Normal. No significant abnormal signal or loss of height. POSTERIOR ELEMENTS: Generally intact. No pars defect evident. HARDWARE: None in the spine. CORD AND CONUS: Normal in size and signal intensity. Conus at the appropriate level. SOFT TISSUES: No aortic aneurysm seen. No bulky retroperitoneal adenopathy or mass. No paraspinal mas s or fluid. L1-L2: No significant spinal stenosis or exit foraminal stenosis. L2-L3: No significant disc bulge. Mild facet arthropathy. No significant spinal stenosis or exit fo raminal stenosis. L3-L4: Diffuse posterior disc bulge. Facet arthropathy with ligamentum flavum thickening. Moderate to severe spinal stenosis. Moderate bilateral exit foraminal stenosis. L4-L5: Posterior disc bulge with central protrusion. Facet arthropathy with ligamentum flavum thicke feli. Moderate spinal stenosis. Bilateral exit foraminal stenosis. L5-S1: Mild diffuse posterior disc bulge. Marked facet arthropathy. Mild spinal stenosis and mild t o moderate exit foraminal stenosis. LOWER THORACIC: Incompletely imaged. No stenosis seen. SACRUM: Visualized upper sacrum intact. OTHER: No other significant findings. IMPRESSION: 1. STABLE COMPRESSION DEFORMITY OF THE SUPERIOR ENDPLATE OF L4. PREVIOUSLY SEEN INFLAMMATORY CHANGES WITH MARROW EDEMA AT L3 AND L4 HAS RESOLVED. CURRENTLY NO SIGNIFICANT INFLAMMATION OR MARROW EDEMA. NO PARASPINAL OR EPIDURAL SOFT TISSUE CHANGES. 2. CHRONIC DEGENERATIVE CHANGES WITH STENOSIS DESCRIBED. SIMILAR TO THE PRIOR STUDY. TECHNICAL DOCUMENTATION: JOB ID: [id number] [employer]- All Rights Reserved Reading location - IP/workstation name: [email or web address]
--- NOTE | 2018-05-10 15:46 | Operative Report ---
Nonrecallable Operative Report DATE OF SURGERY: 05/10/18 PREOPERATIVE DIAGNOSIS: Septic right foot in noncompliant diabetic POSTOPERATIVE DIAGNOSIS: Same OPERATION: Focused ultrasound of the right foot SURGEON: MARICRUZ GALINDO ANESTHESIA: Other - None TISSUE REMOVED OR ALTERED: None COMPLICATIONS: None ESTIMATED BLOOD LOSS: None INTRAOPERATIVE FINDINGS: None PROCEDURE: At bedside the patient's right foot was exposed and skin with a variable frequency linear transducer. Images were retained for the record The dorsal surface of the right foot from mid position to the medial side was scanned. The findings were significant for deep soft tissue fluid density with minimal hypoechogenicity with movement on palpation. This is the area of maximum tenderness. The findings were most consistent with deep soft tissue retained fluid concerning for infectious process. Recommendations: 1. Keep patient n.p.o. I explained to the patient, nursing staff and primary care physician that I am concerned there is ongoing soft tissue infection in this foot in light of the patient's swelling, tenderness, leukocytosis despite 2 -1/2 days of IV antibiotics and findings now on ultrasonography. 2. Plan to take the patient to the operating room for debridement of the top of the right foot possible drain and/or counterincision creation. I believe the patient understands and agrees to proceed.
[2018-05-10] MEDS ORDERED: FENTANYL CITRATE INJ/PF 100 MCG/2 ML AMPUL ONE (16:49)
[2018-05-10] MEDS ORDERED: PROPOFOL INJ 200 MG/20 ML VIAL IV ONE (16:50)
[2018-05-10] MEDS ORDERED: MIDAZOLAM 2 MG/2 ML INJ ONE (16:50)
[2018-05-10] MEDS ORDERED: LIDOCAINE 1% INJ-PF (10 MG/ML) 30 ML SDV ONE (16:56)
[2018-05-10] MEDS ORDERED: DIPHENHYDRAMINE HCL 50 MG/ML VIAL IV PRN (17:34)
[2018-05-10] MEDS ORDERED: PROMETHAZINE HCL INJ 25 MG/1 ML VIAL IV PRN ×2 (17:34)
[2018-05-10] MEDS ORDERED: FENTANYL CITRATE INJ/PF 100 MCG/2 ML AMPUL IV PRN ×3 (17:34)
[2018-05-10] MEDS ORDERED: MORPHINE SULFATE 10 MG/ML INJ IV PRN (17:34)
[2018-05-10] MEDS ORDERED: MEPERIDINE HCL/PF INJ 25 MG/1 ML DISP.SYRIN IV PRN (17:34)
--- NOTE | 2018-05-10 17:42 | Operative Report ---
Nonrecallable Operative Report DATE OF SURGERY: 05/10/18 PREOPERATIVE DIAGNOSIS: Septic right foot; status post right amputations 4 and 5 POSTOPERATIVE DIAGNOSIS: Same with laudable pus dorsal aspect right foot OPERATION: Excisional debridement of skin, subcutaneous tissue, fascia, and pus from the dorsal surface of the right foot using pickups, scissors, knife; vigorous debridement of right lateral foot wound using curettes SURGEON: MARICRUZ GALINDO ANESTHESIA: LMAC TISSUE REMOVED OR ALTERED: Pus, skin, infected fascia COMPLICATIONS: None ESTIMATED BLOOD LOSS: Minimal INTRAOPERATIVE FINDINGS: See below PROCEDURE: Patient was taken to the main operating room where LMAC anesthesia was induced. Right foot was exposed. Prepped draped sterile fashion. Surgical plan surgical timeout conducted. Findings are significant for chronic wound the lateral aspect of the right foot status post right fourth and fifth ray amputations. This wound was vigorously debrided with friction, 4 x 4's, multiple size curettes until all granulating surfaces were vigorously. On the dorsal aspect of foot, medial to midline was a puffy, swollen tender area. A longitudinal incision was made and we got right into laudable pus, approximately 20 cc. This was in the deep subcutaneous space above the fascia. All loculations were broken up and index finger. A counterincision, over the dorsal more medial aspect of the forefoot was made using the knife blade. A large Sycamore loop drain was then placed between these 2 incisions on the forefoot. The foot was then irrigated with 3 L of warm saline. Skin, subcutaneous tissue and fascia from the introductory wound on the medial side of the dorsum of the foot was excised using scissors and knife. The final primary debridement wound was approximately 3-1/2 cm in diameter. All 3 wounds, 2 on the dorsum of the foot and one involving the lateral aspect of the foot were all packed with 4 x 4 's and the leg wrapped with gauze dressing. Patient tolerated procedure well, taken to recovery in stable condition.
[2018-05-10] MEDS: INSULIN GLARGINE,HUM.REC.ANLOG 300 UNIT/3 ML INSULN.PEN SUBCUT SCH (22:46)
[2018-05-10] MEDS: TAMSULOSIN HCL 0.4 MG CAP.SR.24H PO SCH (23:08)
[2018-05-10] MEDS: ATORVASTATIN CALCIUM 40 MG TABLET PO SCH (23:10)
[2018-05-11] MEDS: CEFTAZIDIME PENTAHYDRATE 1 GM in DEXTROSE 5%-WATER 50 ML IV SCH ×3 (06:13→22:52)
[2018-05-11] MEDS: HYDRALAZINE HCL 50 MG TABLET PO SCH ×3 (06:43→22:51)
[2018-05-11] MEDS: OXYCODONE-ACETAMINOPHEN 5-325 MG TABLET PO PRN ×3 (06:44→22:53)
--- NOTE | 2018-05-11 08:21 | PDOC PROGRESS REPORT ---
Subjective Progress Note for:: 05/11/18 Subjective:: Complaining of right foot pain Reason For Visit: POST OF INFECTION RIGHT FOOT Physical Exam Vital Signs: Temp Pulse Resp BP Pulse Ox 99.3 F 89 18 142/90 H 99 05/10/18 19:15 05/10/18 19:15 05/10/18 19:15 05/10/18 19:15 05/10/18 19:15 Intake & Output 05/10/18 05/11/18 05/12/18 06:59 06:59 06:59 Intake Total 1350 6907 Output Total 1800 6655 Balance -450 252 Weight 79.3 kg 79.3 kg General appearance: PRESENT: no acute distress Musculoskeletal exam: PRESENT: other - Dressing removed removed; patient now has a new active site of purulent discharge from the mid dorsal lateral aspect of the foot, adjacent to the loop Chelsey drain. The amputation site wound is granulating nicely, and the loop drain in the more medial aspect of the foot has no purulent discharge. Results Laboratory Results: 05/10/18 05:15 05/10/18 05:15 Impressions: Foot X-Ray 05/09/18 00:00 IMPRESSION: Interval amputation of right 4th metatarsal right 4th toe. The possibility of osteomyelitis of the 3rd cuneiform and tarsal cuboid cannot be excluded. Soft tissue deformity laterally. Soft tissue swelling dorsally. Abdomen/Pelvis CT 05/09/18 12:30 IMPRESSION: 1. Marked bladder distention. If clinically indicated, consider catheterization 2. Cholelithiasis. 3. Changes compatible with chronic discitis L3-4 and compression of the L4 vertebra again noted. At L4-5 there is evidence of posterior central disc protrusion extending laterally to the right. Central canal stenosis. At L5-S1, foramina stenosis bilaterally. 4. Constipation. Lumbar Spine MRI 05/10/18 00:00 IMPRESSION: 1. STABLE COMPRESSION DEFORMITY OF THE SUPERIOR ENDPLATE OF L4. PREVIOUSLY SEEN INFLAMMATORY CHANGES WITH MARROW EDEMA AT L3 AND L4 HAS RESOLVED. CURRENTLY NO SIGNIFICANT INFLAMMATION OR MARROW EDEMA. NO PARASPINAL OR EPIDURAL SOFT TISSUE CHANGES. 2. CHRONIC DEGENERATIVE CHANGES WITH STENOSIS DESCRIBED. SIMILAR TO THE PRIOR STUDY. Assessment & Plan - Diagnosis (1) Diabetic foot infection Is this a current diagnosis for this admission?: Yes Plan: Impression: Persisting soft tissue infection of the right foot despite operative debridement on the dorsal aspect of the foot. Recommendations: 1. The patient's long history of medical noncompliance, and the multitude of previous surgeries on this complicated foot now with multiple incisions and persisting purulent discharge, I believe the patient is going to come to a right [id number] amputation. I mentioned this to the patient. He seemed very distressed. 2. Continue intravenous antibiotic therapy 3. Work with patient regarding the futility of trying to salvage the right foot.
[2018-05-11] MEDS: POTASSIUM CHLORIDE 10 MEQ CAPSULE.ER PO SCH (09:50)
[2018-05-11] MEDS: TRAZODONE HCL 50 MG TABLET PO SCH ×2 (09:50→22:51)
[2018-05-11] MEDS: MULTIVIT-STRESS FORMULA/ZINC TABLET PO SCH (09:50)
[2018-05-11] MEDS: AMLODIPINE BESYLATE 10 MG TABLET PO SCH (09:50)
[2018-05-11] MEDS: FAMOTIDINE 20 MG TABLET PO SCH ×2 (09:51→22:52)
[2018-05-11] MEDS: DOCUSATE SODIUM 100 MG CAPSULE PO SCH (09:59)
[2018-05-11] MEDS: ENOXAPARIN SODIUM INJ 40 MG/0.4 ML DISP.SYRIN SUBCUT SCH (10:00)
[2018-05-11] MEDS: VANCOMYCIN HCL 750 MG in DEXTROSE 5%-WATER 250 ML IV SCH ×2 (11:24→22:52)
--- NOTE | 2018-05-11 11:26 | PDOC PROGRESS REPORT ---
Subjective Progress Note for:: 05/11/18 Subjective:: 05/11/2018-patient's name is Elvis Estevez is a 57-year-old male admitted with cellulitis of the right foot did complains that he is not feeling well he is not sure whether he is anxious or depressed. He is complaining of pain in the right foot 4 x 10. Patient said surgeons came and talked to him about possible amputation of the right foot but he said he is not ready about it and he wants to think about it and he know the complications of waiting for a long time Reason For Visit: POST OF INFECTION RIGHT FOOT Physical Exam Vital Signs: Temp Pulse Resp BP Pulse Ox 98.1 F 77 16 147/61 H 99 05/11/18 08:39 05/11/18 08:39 05/11/18 08:39 05/11/18 08:39 05/11/18 08:39 Intake & Output 05/10/18 05/11/18 05/12/18 06:59 06:59 06:59 Intake Total 1350 6957 Output Total 1800 6655 Balance -450 302 Weight 79.3 kg 79.3 kg General appearance: PRESENT: mild distress, well-developed Head exam: PRESENT: atraumatic, normocephalic Eye exam: PRESENT: PERRLA Neck exam: ABSENT: carotid bruit, JVD, lymphadenopathy, thyromegaly Respiratory exam: PRESENT: clear to auscultation manuel. ABSENT: rales, rhonchi, wheezes Cardiovascular exam: PRESENT: RRR. ABSENT: diastolic murmur, rubs, systolic murmur Pulses: PRESENT: other - Peripheral pulses are poor GI/Abdominal exam: PRESENT: normal bowel sounds, soft. ABSENT: distended, guarding, mass, organolmegaly, rebound, tenderness Extremities exam: PRESENT: other - Right foot wrapped in bandage Neurological exam: PRESENT: alert, awake, oriented to person, oriented to place , oriented to time, oriented to situation, CN II-XII grossly intact. ABSENT: motor sensory deficit Psychiatric exam: PRESENT: appropriate affect, normal mood. ABSENT: homicidal ideation, suicidal ideation Skin exam: PRESENT: other - Right foot infection with purulent discharge Results Laboratory Results: 05/10/18 05:15 05/10/18 05:15 Impressions: Foot X-Ray 05/09/18 00:00 IMPRESSION: Interval amputation of right 4th metatarsal right 4th toe. The possibility of osteomyelitis of the 3rd cuneiform and tarsal cuboid cannot be excluded. Soft tissue deformity laterally. Soft tissue swelling dorsally. Abdomen/Pelvis CT 05/09/18 12:30 IMPRESSION: 1. Marked bladder distention. If clinically indicated, consider catheterization 2. Cholelithiasis. 3. Changes compatible with chronic discitis L3-4 and compression of the L4 vertebra again noted. At L4-5 there is evidence of posterior central disc protrusion extending laterally to the right. Central canal stenosis. At L5-S1, foramina stenosis bilaterally. 4. Constipation. Lumbar Spine MRI 05/10/18 00:00 IMPRESSION: 1. STABLE COMPRESSION DEFORMITY OF THE SUPERIOR ENDPLATE OF L4. PREVIOUSLY SEEN INFLAMMATORY CHANGES WITH MARROW EDEMA AT L3 AND L4 HAS RESOLVED. CURRENTLY NO SIGNIFICANT INFLAMMATION OR MARROW EDEMA. NO PARASPINAL OR EPIDURAL SOFT TISSUE CHANGES. 2. CHRONIC DEGENERATIVE CHANGES WITH STENOSIS DESCRIBED. SIMILAR TO THE PRIOR STUDY. Assessment & Plan - Diagnosis (1) Depression Qualifiers: Depression Type: unspecified Qualified Code(s): F32.9 - Major depressive disorder, single episode, unspecified Is this a current diagnosis for this admission?: Yes Plan: 05/11/2018 patient looks slightly anxious may be depressed patient is on trazodone right now and will continue the trazodone and that for the time being. Patient may be more anxious and nervous because of the possible amputation of the right lower leg (2) Diabetic foot infection Is this a current diagnosis for this admission?: Yes Plan: 05/11/2018-has right foot infection which was chronic he is on IV antibiotics right now. The surgeons evaluated the patient this morning found to have a purulent discharge from the infection site has recurrent surgeries on this right foot prior the surgeon spoke to me and he told me about the possible need for right BKA. He is aware of the possibility of right BKA but he says he is not ready for amputation at this point. Prefers to be continues to be on IV antibiotics at this time. (3) Neurogenic bladder Is this a current diagnosis for this admission?: Yes Plan: 05/11/2018-CT scan obtained on 9 05/10/2018 shows significant bladder distention and patient does not have any allergy to urinate and Lopez's catheter was placed on 1.2 L of urine was removed. MRI of the lumbar spine was done yesterday to rule out nerve compression impression from the radiologist is stable compression deformity of the superior endplate of L4 previously seen inflammatory changes with marrow edema at at L3 and L4 has resolved. Currently no significant inflammation or marrow edema. No paraspinal or epidural soft tissue changes. Chronic degenerative changes with stenosis. We are planning to remove the Lopez's catheter at today if the patient is able to void by himself he cannot will place the Lopez's catheter back again. Patient was started on Flomax during this admission. (4) Osteomyelitis due to type 2 diabetes mellitus Is this a current diagnosis for this admission?: Yes Plan: 07/11/2017-patient has open wound lateral aspect of the right foot status post fourth and fifth toes amputations. Surgeons noticed purulent discharge from the open wound today. There is from 05/09/2018 suggest possibility of osteomyelitis of the third cuneiform and tarsal could not be excluded. The surgeon's impression is there is a need for possible right BKA. Patient is on ceftaz Z IM and vancomycin. Lab called me this morning about blood cultures with possible contamination. Will continue the present medications I mean IV antibiotic therapy in the meantime. Please see the surgical note today (5) Osteomyelitis of lumbar vertebra Is this a current diagnosis for this admission?: Yes Plan: 07/11/2017-and has MRI of the lumbar spine was done osteomyelitis of the lumbar spine is unlikely (6) Acute pain Is this a current diagnosis for this admission?: Yes Plan: 05/11/2018 patient is complaining of pain a 4 x 10 because of the right foot infection07/11/2017 patient is on Percocet patient is on oxycodone 2 tablets every 4 hours as needed for pain. We will continue the present pain medication regimen at this point (7) Diabetes mellitus Qualifiers: Diabetes mellitus type: type 2 Diabetes mellitus group home insulin use: with group home use Diabetes mellitus complication status: with skin complications Diabetes mellitus complication detail: with foot ulcer Qualified Code(s): E11.621 - Type 2 diabetes mellitus with foot ulcer; L97.509 - Non-pressure chronic ulcer of other part of unspecified foot with unspecified severity; L97.509 - Non-pressure chronic ulcer of other part of unspecified foot with unspecified severity; L97.509 - Non-pressure chronic ulcer of other part of unspecified foot with unspecified severity; L97.509 - Non-pressure chronic ulcer of other part of unspecified foot with unspecified severity; Z79.4 - intermediate (current) use of insulin; 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 He is also on Lantus 40 units daily he is on low-carb diet. Dietary consult was in place. Patient's latest blood sugar is 230. These high blood sugars may be secondary to right foot infection. (8) HTN (hypertension) Qualifiers: Hypertension type: essential hypertension Qualified Code(s): I10 - Essential (primary) hypertension Is this a current diagnosis for this admission?: Yes Plan: 05/11/2018-patient's blood pressures are relatively stable. Will continue will continue the present management. - Time Time Spent with patient: 25-34 minutes Medications reviewed and adjusted accordingly: Yes
[2018-05-11] MEDS: POLYETHYLENE GLYCOL 3350 POWDER 17 GM/1 PACKET PO SCH (11:32)
[2018-05-11] MEDS: INSULIN LISPRO 100 UNIT/ML 3 ML VIAL SUBCUT PRN ×3 (13:56→22:54)
[2018-05-11] MEDS: NORMAL SALINE 1000 ML 1,000 ML IV PRN (20:36)
[2018-05-11] MEDS: TAMSULOSIN HCL 0.4 MG CAP.SR.24H PO SCH (22:51)
[2018-05-11] MEDS: INSULIN GLARGINE,HUM.REC.ANLOG 300 UNIT/3 ML INSULN.PEN SUBCUT SCH (22:52)
[2018-05-11] MEDS: ATORVASTATIN CALCIUM 40 MG TABLET PO SCH (22:52)
[2018-05-11] MEDS: BISACODYL 5 MG TABEC PO PRN (22:53)
[2018-05-12] MEDS: CEFTAZIDIME PENTAHYDRATE 1 GM in DEXTROSE 5%-WATER 50 ML IV SCH ×3 (05:12→21:41)
[2018-05-12] MEDS: HYDRALAZINE HCL 50 MG TABLET PO SCH ×3 (05:12→21:43)
[2018-05-12] MEDS: BISACODYL 5 MG TABEC PO PRN (05:13)
[2018-05-12] MEDS: OXYCODONE-ACETAMINOPHEN 5-325 MG TABLET PO PRN ×3 (05:13→22:42)
[2018-05-12 05:46] LABS: ABSOLUTE BASOPHILS # (AUTO) 0.1 10^3/uL (0.0-0.2); ABSOLUTE EOSINOPHILS # (AUTO) 0.4 10^3/uL (0.0-0.6); ABSOLUTE LYMPHOCYTES (AUTO) 1.9 10^3/uL (0.5-4.7); ABSOLUTE MONOCYTES (AUTO) 1.2 10^3/uL (0.1-1.4); ABSOLUTE NEUT (AUTO) 8.9 10^3/uL (1.7-8.2); BASOPHILS % (AUTO) 1.1 % (0-2); EOSINOPHILS % (AUTO) 2.9 % (0-6); HEMATOCRIT 25.1 % (37.9-51.0); HEMOGLOBIN 8.1 g/dL (13.5-17.0); LYMPHOCYTES % (AUTO) 15.5 % (13-45); MEAN CORPUSCULAR HEMOGLOBIN 25.8 pg (27.0-33.4); MEAN CORPUSCULAR HGB CONC 32.2 g/dL (32.0-36.0); MEAN CORPUSCULAR VOLUME 80 fl (80-97); MONOCYTES % (AUTO) 9.3 % (3-13); PLATELET COUNT 401 10^3/uL (150-450); RED BLOOD COUNT 3.14 10^6/uL (4.35-5.55); RED CELL DISTRIBUTION WIDTH 16.1 % (11.5-14.0); SEGMENTED NEUTROPHILS % (AUTO) 71.2 % (42-78); TOTAL CELLS COUNTED % (AUTO) 100 %; WHITE BLOOD COUNT 12.6 10^3/uL (4.0-10.5)
[2018-05-12 06:07] LABS: ALANINE AMINOTRANSFERASE 16 U/L (21-72); ALBUMIN 2.5 g/dL (3.5-5.0); ALKALINE PHOSPHATASE 121 U/L (38-126); ANION GAP 12 (5-19); ASPARTATE AMINO TRANSFERASE 13 U/L (17-59); BILIRUBIN,DIRECT 0.2 mg/dL (0.0-0.4); BILIRUBIN,TOTAL 0.2 mg/dL (0.2-1.3); BLOOD UREA NITROGEN 25 mg/dL (7-20); CALCIUM 7.9 mg/dL (8.4-10.2); CARBON DIOXIDE 23 mmol/L (22-30); CHLORIDE 100 mmol/L (98-107); GLUCOSE 397 mg/dL (75-110); POTASSIUM 4.3 mmol/L (3.6-5.0); SODIUM 134.8 mmol/L (137-145); TOTAL PROTEIN 6.7 g/dL (6.3-8.2)
[2018-05-12] MEDS: INSULIN LISPRO 100 UNIT/ML 3 ML VIAL SUBCUT PRN ×5 (06:15→21:44)
[2018-05-12] MEDS: VANCOMYCIN HCL 750 MG in DEXTROSE 5%-WATER 250 ML IV SCH ×3 (08:24→21:41)
[2018-05-12] MEDS: FAMOTIDINE 20 MG TABLET PO SCH ×2 (09:12→21:52)
[2018-05-12] MEDS: POTASSIUM CHLORIDE 10 MEQ CAPSULE.ER PO SCH (09:12)
[2018-05-12] MEDS: TRAZODONE HCL 50 MG TABLET PO SCH ×2 (09:12→21:42)
[2018-05-12] MEDS: DOCUSATE SODIUM 100 MG CAPSULE PO SCH (09:12)
[2018-05-12] MEDS: MULTIVIT-STRESS FORMULA/ZINC TABLET PO SCH (09:12)
[2018-05-12] MEDS: AMLODIPINE BESYLATE 10 MG TABLET PO SCH (09:12)
[2018-05-12] MEDS: POLYETHYLENE GLYCOL 3350 POWDER 17 GM/1 PACKET PO SCH ×2 (09:13→09:29)
[2018-05-12] MEDS: ENOXAPARIN SODIUM INJ 40 MG/0.4 ML DISP.SYRIN SUBCUT SCH ×2 (09:13→09:27)
--- NOTE | 2018-05-12 09:49 | PDOC PROGRESS REPORT ---
Subjective Reason For Visit: POST OF INFECTION RIGHT FOOT Physical Exam Vital Signs: Temp Pulse Resp BP Pulse Ox 98.0 F 67 16 143/67 H 100 05/12/18 06:28 05/12/18 06:28 05/12/18 06:28 05/12/18 06:28 05/12/18 06:28 Intake & Output 05/11/18 05/12/18 05/13/18 06:59 06:59 06:59 Intake Total 7207 3166 50 Output Total 6610 2240 Balance 552 926 50 Weight 79.3 kg 81.3 kg Results Laboratory Results: 05/12/18 05:35 05/12/18 05:35 05/12/18 05/12/18 05:35 05:35 WBC 12.6 H RBC 3.14 L Hgb 8.1 L Hct 25.1 L MCV 80 MCH 25.8 L MCHC 32.2 RDW 16.1 H Plt Count 401 Seg Neutrophils % 71.2 Lymphocytes % 15.5 Monocytes % 9.3 Eosinophils % 2.9 Basophils % 1.1 Absolute Neutrophils 8.9 H Absolute Lymphocytes 1.9 Absolute Monocytes 1.2 Absolute Eosinophils 0.4 Absolute Basophils 0.1 Sodium 134.8 L Potassium 4.3 Chloride 100 Carbon Dioxide 23 Anion Gap 12 BUN 25 H Creatinine 1.15 Est GFR ( Amer) > 60 Est GFR (Non-Af Amer) > 60 Glucose 397 H Calcium 7.9 L Magnesium 2.4 H Total Bilirubin 0.2 AST 13 L ALT 16 L Alkaline Phosphatase 121 Total Protein 6.7 Albumin 2.5 L Impressions: Foot X-Ray 05/09/18 00:00 IMPRESSION: Interval amputation of right 4th metatarsal right 4th toe. The possibility of osteomyelitis of the 3rd cuneiform and tarsal cuboid cannot be excluded. Soft tissue deformity laterally. Soft tissue swelling dorsally. Abdomen/Pelvis CT 05/09/18 12:30 IMPRESSION: 1. Marked bladder distention. If clinically indicated, consider catheterization 2. Cholelithiasis. 3. Changes compatible with chronic discitis L3-4 and compression of the L4 vertebra again noted. At L4-5 there is evidence of posterior central disc protrusion extending laterally to the right. Central canal stenosis. At L5-S1, foramina stenosis bilaterally. 4. Constipation. Lumbar Spine MRI 05/10/18 00:00 IMPRESSION: 1. STABLE COMPRESSION DEFORMITY OF THE SUPERIOR ENDPLATE OF L4. PREVIOUSLY SEEN INFLAMMATORY CHANGES WITH MARROW EDEMA AT L3 AND L4 HAS RESOLVED. CURRENTLY NO SIGNIFICANT INFLAMMATION OR MARROW EDEMA. NO PARASPINAL OR EPIDURAL SOFT TISSUE CHANGES. 2. CHRONIC DEGENERATIVE CHANGES WITH STENOSIS DESCRIBED. SIMILAR TO THE PRIOR STUDY. Assessment & Plan - Diagnosis (1) Wound of right foot Is this a current diagnosis for this admission?: Yes - Plan Summary Plan Summary: This is a 57-year-old noncompliant diabetic male with a severe diabetic right foot infection. There is still purulent material emanating from the deep tissues of the right foot, in the area of the ankle. I have recommended below- knee amputation as definitive treatment, however the patient is resistant. Continue antibiotics. Continue dressing changes. Hopefully the patient will reconsider below-knee amputation.
--- NOTE | 2018-05-12 10:23 | PDOC PROGRESS REPORT ---
Subjective Progress Note for:: 05/12/18 Subjective:: 05/12/2018 patient was alert and oriented communicating well. Denies any pain. Lopez's catheter was removed yesterday. Patient is still not voided yet it and also does not have any bowel movement. Reason For Visit: POST OF INFECTION RIGHT FOOT Physical Exam Vital Signs: Temp Pulse Resp BP Pulse Ox 98.0 F 67 16 143/67 H 100 05/12/18 06:28 05/12/18 06:28 05/12/18 06:28 05/12/18 06:28 05/12/18 06:28 Intake & Output 05/11/18 05/12/18 05/13/18 06:59 06:59 06:59 Intake Total 7207 3166 50 Output Total 6655 2240 Balance 552 926 50 Weight 79.3 kg 81.3 kg General appearance: PRESENT: no acute distress Head exam: PRESENT: atraumatic, normocephalic Eye exam: PRESENT: PERRLA Neck exam: ABSENT: carotid bruit, JVD, lymphadenopathy, thyromegaly Respiratory exam: PRESENT: clear to auscultation manuel. ABSENT: rales, rhonchi, wheezes Cardiovascular exam: PRESENT: RRR. ABSENT: diastolic murmur, rubs, systolic murmur GI/Abdominal exam: PRESENT: normal bowel sounds, soft. ABSENT: distended, guarding, mass, organolmegaly, rebound, tenderness Neurological exam: PRESENT: alert, awake, oriented to person, oriented to place , oriented to time, oriented to situation, CN II-XII grossly intact. ABSENT: motor sensory deficit Psychiatric exam: PRESENT: appropriate affect, normal mood. ABSENT: homicidal ideation, suicidal ideation Results Laboratory Results: 05/12/18 05:35 05/12/18 05:35 05/12/18 05/12/18 05:35 05:35 WBC 12.6 H RBC 3.14 L Hgb 8.1 L Hct 25.1 L MCV 80 MCH 25.8 L MCHC 32.2 RDW 16.1 H Plt Count 401 Seg Neutrophils % 71.2 Lymphocytes % 15.5 Monocytes % 9.3 Eosinophils % 2.9 Basophils % 1.1 Absolute Neutrophils 8.9 H Absolute Lymphocytes 1.9 Absolute Monocytes 1.2 Absolute Eosinophils 0.4 Absolute Basophils 0.1 Sodium 134.8 L Potassium 4.3 Chloride 100 Carbon Dioxide 23 Anion Gap 12 BUN 25 H Creatinine 1.15 Est GFR ( Amer) > 60 Est GFR (Non-Af Amer) > 60 Glucose 397 H Calcium 7.9 L Magnesium 2.4 H Total Bilirubin 0.2 AST 13 L ALT 16 L Alkaline Phosphatase 121 Total Protein 6.7 Albumin 2.5 L Impressions: Foot X-Ray 05/09/18 00:00 IMPRESSION: Interval amputation of right 4th metatarsal right 4th toe. The possibility of osteomyelitis of the 3rd cuneiform and tarsal cuboid cannot be excluded. Soft tissue deformity laterally. Soft tissue swelling dorsally. Abdomen/Pelvis CT 05/09/18 12:30 IMPRESSION: 1. Marked bladder distention. If clinically indicated, consider catheterization 2. Cholelithiasis. 3. Changes compatible with chronic discitis L3-4 and compression of the L4 vertebra again noted. At L4-5 there is evidence of posterior central disc protrusion extending laterally to the right. Central canal stenosis. At L5-S1, foramina stenosis bilaterally. 4. Constipation. Lumbar Spine MRI 05/10/18 00:00 IMPRESSION: 1. STABLE COMPRESSION DEFORMITY OF THE SUPERIOR ENDPLATE OF L4. PREVIOUSLY SEEN INFLAMMATORY CHANGES WITH MARROW EDEMA AT L3 AND L4 HAS RESOLVED. CURRENTLY NO SIGNIFICANT INFLAMMATION OR MARROW EDEMA. NO PARASPINAL OR EPIDURAL SOFT TISSUE CHANGES. 2. CHRONIC DEGENERATIVE CHANGES WITH STENOSIS DESCRIBED. SIMILAR TO THE PRIOR STUDY. Assessment & Plan - Diagnosis (1) Depression Qualifiers: Depression Type: unspecified Qualified Code(s): F32.9 - Major depressive disorder, single episode, unspecified Is this a current diagnosis for this admission?: Yes (2) Diabetic foot infection Is this a current diagnosis for this admission?: Yes Plan: 05/11/2018-has right foot infection which was chronic he is on IV antibiotics right now. The surgeons evaluated the patient this morning found to have a purulent discharge from the infection site has recurrent surgeries on this right foot prior the surgeon spoke to me and he told me about the possible need for right BKA. He is aware of the possibility of right BKA but he says he is not ready for amputation at this point. Prefers to be continues to be on IV antibiotics at this time. 05/12/2018 she has right foot infection is an IV antibiotic therapy, the surgeons recommended right BKA, pt says he is under lot of stress and not ready to discuss any kind of surgery. The latest blood cultures shows gram positive cocci in clusters. Patient is on ceftazadime and vancomycin. Vancomycin trough is 15.2 on 05/09/2018. Right foot was wrapped in dressing. Unable to examine the wound. (3) Neurogenic bladder Is this a current diagnosis for this admission?: Yes Plan: 05/11/2018-CT scan obtained on 9 05/10/2018 shows significant bladder distention and patient does not have any allergy to urinate and Lopez's catheter was placed on 1.2 L of urine was removed. MRI of the lumbar spine was done yesterday to rule out nerve compression impression from the radiologist is stable compression deformity of the superior endplate of L4 previously seen inflammatory changes with marrow edema at at L3 and L4 has resolved. Currently no significant inflammation or marrow edema. No paraspinal or epidural soft tissue changes. Chronic degenerative changes with stenosis. We are planning to remove the Lopez's catheter at today if the patient is able to void by himself he cannot will place the Lopez's catheter back again. Patient was started on Flomax during this admission. 05/12/2018-catheter was removed today to see if the patient able to void urine so far patient did not have any urge to urinate. I am going to reevaluate the patient this afternoon and I requested the nurse to do the bladder scan if necessary the planning to put the Lopez's catheter back on. (4) Osteomyelitis due to type 2 diabetes mellitus Is this a current diagnosis for this admission?: Yes Plan: 07/11/2017-patient has open wound lateral aspect of the right foot status post fourth and fifth toes amputations. Surgeons noticed purulent discharge from the open wound today. There is from 05/09/2018 suggest possibility of osteomyelitis of the third cuneiform and tarsal could not be excluded. The surgeon's impression is there is a need for possible right BKA. Patient is on ceftaz Z IM and vancomycin. Lab called me this morning about blood cultures with possible contamination. Will continue the present medications I mean IV antibiotic therapy in the meantime. Please see the surgical note today 05/12/2018 from patient has infection of the right foot in the lateral aspect of the foot, history of fourth and fifth toe amputations. As I mentioned above patient blood cultures came back positive for gram-positive cocci in clusters on IV vancomycin and ceftaz a dime. Today's labs WBC is 12,600 improving and temperature is 98.4. (5) Osteomyelitis of lumbar vertebra Is this a current diagnosis for this admission?: Yes Plan: 07/11/2017-and has MRI of the lumbar spine was done osteomyelitis of the lumbar spine is unlikely 05/12/2018. Osteomyelitis of the lumbar spine was ruled out. Still patient is unable to void urine and did not have bowel movement for the last couple of days. (6) Acute pain Is this a current diagnosis for this admission?: Yes Plan: 05/11/2018 patient is complaining of pain a 4 x 10 because of the right foot infection07/11/2017 patient is on Percocet patient is on oxycodone 2 tablets every 4 hours as needed for pain. We will continue the present pain medication regimen at this point 07/12/2017 has any pet pain today that is according to him . Patient is on oxycodone every 4 as needed. 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 Diabetes mellitus complication status: with skin complications Diabetes mellitus complication detail: with foot ulcer Qualified Code(s): E11.621 - Type 2 diabetes mellitus with foot ulcer; L97.509 - Non-pressure chronic ulcer of other part of unspecified foot with unspecified severity; L97.509 - Non-pressure chronic ulcer of other part of unspecified foot with unspecified severity; L97.509 - Non-pressure chronic ulcer of other part of unspecified foot with unspecified severity; L97.509 - Non-pressure chronic ulcer of other part of unspecified foot with unspecified severity; Z79.4 - [facility] (current) use of insulin; 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 He is also on Lantus 40 units daily he is on low-carb diet. Dietary consult was in place. Patient's latest blood sugar is 230. These high blood sugars may be secondary to right foot infection. 05/12/2018-blood sugars are fluctuating sugar is 403 this morning , after getting 12 units of coverage his latest blood sugar is 298. He is on insulin glargine 50 units at bedtime. I think his fluctuating blood sugars are due to sepsis. I will continue the present regimen at this time. (8) HTN (hypertension) Qualifiers: Hypertension type: essential hypertension Qualified Code(s): I10 - Essential (primary) hypertension Is this a current diagnosis for this admission?: Yes Plan: 05/11/2018-patient's blood pressures are relatively stable. Will continue will continue the present management. 07/12/2017 since latest blood pressure is 143/67, pulse rate is 67. And is on amlodipine 10 mg daily, hydralazine 50 mg p.o. every 6 hourly. He is also on IV fluids normal saline at 75 cc/h. Discontinue his IV fluids. (9) Constipation Qualifiers: Constipation type: drug induced constipation Qualified Code(s): K59.03 - Drug induced constipation Is this a current diagnosis for this admission?: Yes Plan: 05/12/2018 she does requesting mag citrate for bowel movements. Having a bowel movement for 2-3 days. - Time Time Spent with patient: 15-24 minutes Medications reviewed and adjusted accordingly: Yes
[2018-05-12] MEDS ORDERED: MAGNESIUM CITRATE 296 ML BOTTLE PO SCH (11:00)
[2018-05-12] MEDS: MAGNESIUM CITRATE 296 ML BOTTLE PO PRN (13:31)
[2018-05-12] MEDS: TAMSULOSIN HCL 0.4 MG CAP.SR.24H PO SCH (21:41)
[2018-05-12] MEDS: INSULIN GLARGINE,HUM.REC.ANLOG 300 UNIT/3 ML INSULN.PEN SUBCUT SCH (21:43)
[2018-05-12] MEDS: ATORVASTATIN CALCIUM 40 MG TABLET PO SCH (21:52)
[2018-05-13] MEDS: HYDRALAZINE HCL 50 MG TABLET PO SCH ×3 (05:45→21:23)
[2018-05-13] MEDS: OXYCODONE-ACETAMINOPHEN 5-325 MG TABLET PO PRN ×2 (05:46→21:22)
[2018-05-13] MEDS: CEFTAZIDIME PENTAHYDRATE 1 GM in DEXTROSE 5%-WATER 50 ML IV SCH ×3 (05:47→21:25)
[2018-05-13] MEDS: INSULIN LISPRO 100 UNIT/ML 3 ML VIAL SUBCUT PRN ×4 (08:22→23:16)
--- NOTE | 2018-05-13 08:27 | PDOC PROGRESS REPORT ---
Subjective Progress Note for:: 05/13/18 Subjective:: Feels well. No complaints. Reason For Visit: POST OF INFECTION RIGHT FOOT Physical Exam Vital Signs: Temp Pulse Resp BP Pulse Ox 98.2 F 64 16 128/69 H 100 05/13/18 07:36 05/13/18 07:36 05/13/18 07:36 05/13/18 07:36 05/13/18 07:36 Intake & Output 05/12/18 05/13/18 05/14/18 06:59 06:59 06:59 Intake Total 3166 2453 50 Output Total 2240 850 Balance 926 1603 50 Weight 81.3 kg 82.4 kg Extremities exam: PRESENT: other - Foot wound is clean today with no drainage. Some granulation tissue seen at the lateral wound. Chelsey drain in place at the upper dorsum. Results Laboratory Results: 05/12/18 05:35 05/12/18 05:35 Impressions: Foot X-Ray 05/09/18 00:00 IMPRESSION: Interval amputation of right 4th metatarsal right 4th toe. The possibility of osteomyelitis of the 3rd cuneiform and tarsal cuboid cannot be excluded. Soft tissue deformity laterally. Soft tissue swelling dorsally. Abdomen/Pelvis CT 05/09/18 12:30 IMPRESSION: 1. Marked bladder distention. If clinically indicated, consider catheterization 2. Cholelithiasis. 3. Changes compatible with chronic discitis L3-4 and compression of the L4 vertebra again noted. At L4-5 there is evidence of posterior central disc protrusion extending laterally to the right. Central canal stenosis. At L5-S1, foramina stenosis bilaterally. 4. Constipation. Lumbar Spine MRI 05/10/18 00:00 IMPRESSION: 1. STABLE COMPRESSION DEFORMITY OF THE SUPERIOR ENDPLATE OF L4. PREVIOUSLY SEEN INFLAMMATORY CHANGES WITH MARROW EDEMA AT L3 AND L4 HAS RESOLVED. CURRENTLY NO SIGNIFICANT INFLAMMATION OR MARROW EDEMA. NO PARASPINAL OR EPIDURAL SOFT TISSUE CHANGES. 2. CHRONIC DEGENERATIVE CHANGES WITH STENOSIS DESCRIBED. SIMILAR TO THE PRIOR STUDY. Assessment & Plan - Diagnosis (1) Diabetic foot infection Is this a current diagnosis for this admission?: Yes Plan: Patient still refusing amputation. Will continue local wound care and antibiotics.
[2018-05-13] MEDS ORDERED: INSULIN GLARGINE,HUM.REC.ANLOG 300 UNIT/3 ML INSULN.PEN SUBCUT SCH (08:57)
[2018-05-13] MEDS: VANCOMYCIN HCL 750 MG in DEXTROSE 5%-WATER 250 ML IV SCH ×2 (10:05→23:50)
[2018-05-13] MEDS: MULTIVIT-STRESS FORMULA/ZINC TABLET PO SCH (10:05)
[2018-05-13] MEDS: POTASSIUM CHLORIDE 10 MEQ CAPSULE.ER PO SCH (10:06)
[2018-05-13] MEDS: FAMOTIDINE 20 MG TABLET PO SCH ×2 (10:06→21:27)
[2018-05-13] MEDS: TRAZODONE HCL 50 MG TABLET PO SCH ×2 (10:06→21:24)
[2018-05-13] MEDS: DOCUSATE SODIUM 100 MG CAPSULE PO SCH (10:06)
[2018-05-13] MEDS: AMLODIPINE BESYLATE 10 MG TABLET PO SCH (10:07)
[2018-05-13] MEDS: ENOXAPARIN SODIUM INJ 40 MG/0.4 ML DISP.SYRIN SUBCUT SCH (10:07)
[2018-05-13] MEDS: POLYETHYLENE GLYCOL 3350 POWDER 17 GM/1 PACKET PO SCH (10:08)
--- NOTE | 2018-05-13 14:50 | PDOC PROGRESS REPORT ---
Subjective Progress Note for:: 05/13/18 Subjective:: No overnight issues. Foot feeling OK. Denies fever, chills, CP, SOB, abdominal pain, NV. Tolerating antibiotics. Reason For Visit: POST OF INFECTION RIGHT FOOT Physical Exam Vital Signs: Temp Pulse Resp BP Pulse Ox 98.2 F 64 16 128/69 H 100 05/13/18 07:36 05/13/18 07:36 05/13/18 07:36 05/13/18 07:36 05/13/18 07:36 Intake & Output 05/12/18 05/13/18 05/14/18 06:59 06:59 06:59 Intake Total 3166 2453 891 Output Total 2240 850 300 Balance 926 1603 591 Weight 81.3 kg 82.4 kg General appearance: PRESENT: no acute distress, cooperative Head exam: PRESENT: atraumatic Mouth exam: PRESENT: moist Respiratory exam: PRESENT: unlabored. ABSENT: wheezes Cardiovascular exam: PRESENT: +S1, +S2. ABSENT: tachycardia GI/Abdominal exam: PRESENT: soft, other. ABSENT: tenderness Extremities exam: PRESENT: other - Right foot wrapped; no active drainage. Chelsey drain in place Neurological exam: PRESENT: alert, awake, CN II-XII grossly intact Psychiatric exam: PRESENT: appropriate affect Skin exam: PRESENT: dry. ABSENT: warm Results Laboratory Results: 05/12/18 05:35 05/12/18 05:35 Impressions: Foot X-Ray 05/09/18 00:00 IMPRESSION: Interval amputation of right 4th metatarsal right 4th toe. The possibility of osteomyelitis of the 3rd cuneiform and tarsal cuboid cannot be excluded. Soft tissue deformity laterally. Soft tissue swelling dorsally. Abdomen/Pelvis CT 05/09/18 12:30 IMPRESSION: 1. Marked bladder distention. If clinically indicated, consider catheterization 2. Cholelithiasis. 3. Changes compatible with chronic discitis L3-4 and compression of the L4 vertebra again noted. At L4-5 there is evidence of posterior central disc protrusion extending laterally to the right. Central canal stenosis. At L5-S1, foramina stenosis bilaterally. 4. Constipation. Lumbar Spine MRI 05/10/18 00:00 IMPRESSION: 1. STABLE COMPRESSION DEFORMITY OF THE SUPERIOR ENDPLATE OF L4. PREVIOUSLY SEEN INFLAMMATORY CHANGES WITH MARROW EDEMA AT L3 AND L4 HAS RESOLVED. CURRENTLY NO SIGNIFICANT INFLAMMATION OR MARROW EDEMA. NO PARASPINAL OR EPIDURAL SOFT TISSUE CHANGES. 2. CHRONIC DEGENERATIVE CHANGES WITH STENOSIS DESCRIBED. SIMILAR TO THE PRIOR STUDY. Assessment & Plan - Diagnosis (1) Diabetic foot infection Is this a current diagnosis for this admission?: Yes Plan: Long conversation with patient this morning regarding his chronic foot infections. Patient states that he tries very hard to care from himself however has faced challenges with homelessness. He finally has qualified for benefits and staying at hotel. He feels pressured by surgery to have more aggressive amputation. We discussed that this is likely to remain a chronic issue and infections may return even in the best circumstances due to his diabetes. At some point he may need amputation more urgently particularly if he became septic. He is aware and will think over. - S/p debridment on 05/10 - Surgery following, appreciate continued recs - Blood cultures from 05/07 show Coryneacterium (1/2 bottle) and MSSA (1/2 bottle) - For now, continue medical management with IV Vanc and Ceftazidime - Repeat blood cultures never obtained to document clearance; will repeat today. (2) Depression Qualifiers: Depression Type: unspecified Qualified Code(s): F32.9 - Major depressive disorder, single episode, unspecified Is this a current diagnosis for this admission?: Yes Plan: Mood stable (3) Osteomyelitis due to type 2 diabetes mellitus Is this a current diagnosis for this admission?: Yes Plan: 07/11/2017-patient has open wound lateral aspect of the right foot status post fourth and fifth toes amputations. Surgeons noticed purulent discharge from the open wound today. There is from 05/09/2018 suggest possibility of osteomyelitis of the third cuneiform and tarsal could not be excluded. The surgeon's impression is there is a need for possible right BKA. Patient is on ceftaz Z IM and vancomycin. Lab called me this morning about blood cultures with possible contamination. Will continue the present medications I mean IV antibiotic therapy in the meantime. Please see the surgical note today 05/12/2018 from patient has infection of the right foot in the lateral aspect of the foot, history of fourth and fifth toe amputations. As I mentioned above patient blood cultures came back positive for gram-positive cocci in clusters on IV vancomycin and ceftaz a dime. Lab: WBC is 12,600 improving and temperature is 98.4. (4) Neurogenic bladder Is this a current diagnosis for this admission?: Yes Plan: CT scan 05/10/2018 with significant bladder distention. MRI lumbar shows stable compression deformity of the superior endplate of L4 previously seen inflammatory changes with marrow edema at at L3 and L4 has resolved. Currently no significant inflammation or marrow edema. No paraspinal or epidural soft tissue changes. Chronic degenerative changes with stenosis. On 05/12/2018, finley catheter removed. On Flomax. Voiding OK. 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 use Diabetes mellitus complication status: with skin complications Diabetes mellitus complication detail: with foot ulcer Qualified Code(s): E11.621 - Type 2 diabetes mellitus with foot ulcer; L97.509 - Non-pressure chronic ulcer of other part of unspecified foot with unspecified severity; L97.509 - Non-pressure chronic ulcer of other part of unspecified foot with unspecified severity; L97.509 - Non-pressure chronic ulcer of other part of unspecified foot with unspecified severity; L97.509 - Non-pressure chronic ulcer of other part of unspecified foot with unspecified severity; Z79.4 - USP (current) use of insulin; Z79.4 - USP (current) use of insulin; Z79.4 - intermediate frame tender (current) use of insulin; Z79.4 - USP (current ) use of insulin Is this a current diagnosis for this admission?: Yes Plan: Blood sugars continue to fluctuate. Elevated at bedtime on 05/12 - Increased Lantus from 50 to 60u qHS - Continue LDISS - IF BS remain elevated, will consider changed to BID lantus dosing - Time Time Spent with patient: 15-24 minutes Anticipated discharge: Home with Homehealth Within: within 48 hours
[2018-05-13] MEDS: TAMSULOSIN HCL 0.4 MG CAP.SR.24H PO SCH (21:24)
[2018-05-13] MEDS: ATORVASTATIN CALCIUM 40 MG TABLET PO SCH (21:25)
[2018-05-14] MEDS: CEFTAZIDIME PENTAHYDRATE 1 GM in DEXTROSE 5%-WATER 50 ML IV SCH ×2 (06:27→14:24)
[2018-05-14] MEDS: HYDRALAZINE HCL 50 MG TABLET PO SCH ×3 (06:27→22:05)
[2018-05-14] MEDS: INSULIN LISPRO 100 UNIT/ML 3 ML VIAL SUBCUT PRN ×2 (08:39→22:05)
[2018-05-14] MEDS: MAGNESIUM CITRATE 296 ML BOTTLE PO PRN (08:43)
[2018-05-14] MEDS: OXYCODONE-ACETAMINOPHEN 5-325 MG TABLET PO PRN ×4 (08:43→23:08)
[2018-05-14] MEDS ORDERED: INSULIN GLARGINE,HUM.REC.ANLOG 300 UNIT/3 ML INSULN.PEN SUBCUT SCH (10:00)
[2018-05-14] MEDS ORDERED: LIDOCAINE 1% INJ-PF (10 MG/ML) 30 ML SDV INJ ONE (11:00)
[2018-05-14] MEDS: FAMOTIDINE 20 MG TABLET PO SCH ×2 (11:05→22:05)
[2018-05-14] MEDS: POTASSIUM CHLORIDE 10 MEQ CAPSULE.ER PO SCH ×2 (11:05→11:33)
[2018-05-14] MEDS: TRAZODONE HCL 50 MG TABLET PO SCH ×2 (11:05→22:05)
[2018-05-14] MEDS: DOCUSATE SODIUM 100 MG CAPSULE PO SCH (11:06)
[2018-05-14] MEDS: AMLODIPINE BESYLATE 10 MG TABLET PO SCH (11:06)
--- NOTE | 2018-05-14 11:07 | PDOC PROGRESS REPORT ---
Subjective Progress Note for:: 05/14/18 Subjective:: No complaints Reason For Visit: POST OF INFECTION RIGHT FOOT Physical Exam Vital Signs: Temp Pulse Resp BP Pulse Ox 98.5 F 69 20 143/68 H 99 05/14/18 07:42 05/14/18 07:42 05/14/18 07:42 05/14/18 07:42 05/14/18 07:42 Intake & Output 05/13/18 05/14/18 05/15/18 06:59 06:59 06:59 Intake Total 2453 2732 Output Total 850 300 Balance 1603 2432 Weight 82.4 kg 87.5 kg General appearance: PRESENT: no acute distress, cooperative Extremities exam: PRESENT: other - Lateral aspect of the foot has clean granulating wound. However the upper medial aspect of the midfoot wound has some fibrinous exudate. Lateral to this region beyond the [place] drain there is a region of fluctuance and drainage. This area was explored under local anesthetic at bedside and drained and debrided. Patient still has a diffuse foot erythema and induration. But overall improved. Results Laboratory Results: 05/12/18 05:35 Impressions: Foot X-Ray 05/09/18 00:00 IMPRESSION: Interval amputation of right 4th metatarsal right 4th toe. The possibility of osteomyelitis of the 3rd cuneiform and tarsal cuboid cannot be excluded. Soft tissue deformity laterally. Soft tissue swelling dorsally. Abdomen/Pelvis CT 05/09/18 12:30 IMPRESSION: 1. Marked bladder distention. If clinically indicated, consider catheterization 2. Cholelithiasis. 3. Changes compatible with chronic discitis L3-4 and compression of the L4 vertebra again noted. At L4-5 there is evidence of posterior central disc protrusion extending laterally to the right. Central canal stenosis. At L5-S1, foramina stenosis bilaterally. 4. Constipation. Lumbar Spine MRI 05/10/18 00:00 IMPRESSION: 1. STABLE COMPRESSION DEFORMITY OF THE SUPERIOR ENDPLATE OF L4. PREVIOUSLY SEEN INFLAMMATORY CHANGES WITH MARROW EDEMA AT L3 AND L4 HAS RESOLVED. CURRENTLY NO SIGNIFICANT INFLAMMATION OR MARROW EDEMA. NO PARASPINAL OR EPIDURAL SOFT TISSUE CHANGES. 2. CHRONIC DEGENERATIVE CHANGES WITH STENOSIS DESCRIBED. SIMILAR TO THE PRIOR STUDY. Assessment & Plan - Diagnosis (1) Diabetic foot infection Is this a current diagnosis for this admission?: Yes Plan: Patient still refusing amputation. He had new region of fluctuance that was locally debrided but overall the foot does look improved on current measures. Continue local wound care and antibiotics. May want to fine-tune his antibiotic regimen based on his cultures. Will defer to hospitalist. If he continues to refuse an amputation then he will require long-term IV antibiotics at home.
--- NOTE | 2018-05-14 11:11 | Operative Report ---
Operative Report DATE OF SURGERY: 05/10/18 PREOPERATIVE DIAGNOSIS: Diabetic foot infection POSTOPERATIVE DIAGNOSIS: Diabetic foot infection with new localized abscess OPERATION: Excisional debridement approximately 2 x 2 centimeter X abscess cavity and excision about 1 x 1 cm overlying skin. SURGEON: ROCAEL BASS ANESTHESIA: Local TISSUE REMOVED OR ALTERED: Overlying necrotic skin and underlying debris COMPLICATIONS: None ESTIMATED BLOOD LOSS: Minimal INTRAOPERATIVE FINDINGS: See below PROCEDURE: Informed consent was obtained. The procedure was done at the patient's bedside. Patient's right foot was prepped with Betadine and draped. Local anesthetic with 1% lidocaine was used. At the mid lateral aspect of his right foot there was a small region of fluctuance with a small opening. The surrounding rim of skin of this opening had necrosis and approximately a centimeter of skin was excised. There was approximately 2 x 2 centimeter pocket with the scant amount of debris which was evacuated there was no tracts extending from this area. The wound was explored with a clamp. It was cleaned with gauze and then packed with iodoform gauze. Patient also had some fibrinous exudate at his medial upper open wound and this fibrinous exudate was excised with scissors. Dressings were all applied. Patient tolerated procedure well with no apparent complications.
[2018-05-14 11:22] LABS: VANCOMYCIN,TROUGH 17.4 ug/mL (5.0-20.0)
[2018-05-14] MEDS: MULTIVIT-STRESS FORMULA/ZINC TABLET PO SCH (12:02)
[2018-05-14] MEDS: VANCOMYCIN HCL 750 MG in DEXTROSE 5%-WATER 250 ML IV SCH (12:04)
[2018-05-14] MEDS: POLYETHYLENE GLYCOL 3350 POWDER 17 GM/1 PACKET PO SCH (12:04)
[2018-05-14] MEDS: INSULIN GLARGINE,HUM.REC.ANLOG 1,000 UNIT/10 ML UNIT SUBCUT SCH ×2 (12:07→18:11)
[2018-05-14] MEDS: ENOXAPARIN SODIUM INJ 40 MG/0.4 ML DISP.SYRIN SUBCUT SCH (14:25)
--- NOTE | 2018-05-14 14:34 | PDOC PROGRESS REPORT ---
Subjective Progress Note for:: 05/14/18 Subjective:: No overnight issues. This AM only complaint is constipation. Has not had BM in 1 week. Trialing Milk of Magnesia this morning. Foot unchanged Denies fever, chills, CP, SOB, abdominal pain, NV. Tolerating antibiotics. Reason For Visit: POST OF INFECTION RIGHT FOOT Physical Exam Vital Signs: Temp Pulse Resp BP Pulse Ox 98.3 F 69 18 147/63 H 98 05/14/18 11:13 05/14/18 11:13 05/14/18 11:13 05/14/18 11:13 05/14/18 11:13 Intake & Output 05/13/18 05/14/18 05/15/18 06:59 06:59 06:59 Intake Total 2453 2732 641 Output Total 850 300 350 Balance 1603 2432 291 Weight 82.4 kg 87.5 kg General appearance: PRESENT: no acute distress, cooperative, well-developed, well-nourished Head exam: PRESENT: atraumatic Mouth exam: PRESENT: moist Respiratory exam: PRESENT: unlabored. ABSENT: wheezes Cardiovascular exam: PRESENT: +S1, +S2. ABSENT: tachycardia GI/Abdominal exam: PRESENT: soft. ABSENT: tenderness Extremities exam: PRESENT: other - Erythema improving, no active drainage; non tender to palpation, foot mobile. Musculoskeletal exam: PRESENT: ambulatory Neurological exam: PRESENT: alert, awake, CN II-XII grossly intact Psychiatric exam: PRESENT: appropriate affect Skin exam: PRESENT: other - Per above, otherwise WNL Results Laboratory Results: 05/12/18 05:35 05/14/18 10:30 05/14/18 10:30 Creatinine 1.17 Est GFR ( Amer) > 60 Est GFR (Non-Af Amer) > 60 Impressions: Foot X-Ray 05/09/18 00:00 IMPRESSION: Interval amputation of right 4th metatarsal right 4th toe. The possibility of osteomyelitis of the 3rd cuneiform and tarsal cuboid cannot be excluded. Soft tissue deformity laterally. Soft tissue swelling dorsally. Abdomen/Pelvis CT 05/09/18 12:30 IMPRESSION: 1. Marked bladder distention. If clinically indicated, consider catheterization 2. Cholelithiasis. 3. Changes compatible with chronic discitis L3-4 and compression of the L4 vertebra again noted. At L4-5 there is evidence of posterior central disc protrusion extending laterally to the right. Central canal stenosis. At L5-S1, foramina stenosis bilaterally. 4. Constipation. Lumbar Spine MRI 05/10/18 00:00 IMPRESSION: 1. STABLE COMPRESSION DEFORMITY OF THE SUPERIOR ENDPLATE OF L4. PREVIOUSLY SEEN INFLAMMATORY CHANGES WITH MARROW EDEMA AT L3 AND L4 HAS RESOLVED. CURRENTLY NO SIGNIFICANT INFLAMMATION OR MARROW EDEMA. NO PARASPINAL OR EPIDURAL SOFT TISSUE CHANGES. 2. CHRONIC DEGENERATIVE CHANGES WITH STENOSIS DESCRIBED. SIMILAR TO THE PRIOR STUDY. Assessment & Plan - Diagnosis (1) Diabetic foot infection Is this a current diagnosis for this admission?: Yes Plan: On 05/13:Long conversation with patient this morning regarding his chronic foot infections. Patient states that he tries very hard to care from himself however has faced challenges with homelessness. He finally has qualified for benefits and staying at hotel. He feels pressured by surgery to have more aggressive amputation. We discussed that this is likely to remain a chronic issue and infections may return even in the best circumstances due to his diabetes. At some point he may need amputation more urgently particularly if he became septic. He is aware and will think over. 05/14: Still no interest in surgery at this time. - S/p debridment on 05/10 - Surgery following, appreciate continued recs - Blood cultures from 05/07 show Coryneacterium (1/2 bottle) and MSSA (1/2 bottle) - Repeat blood cultures on 05/13 pending; will tailor abx based on results. Discontinued IV vanc on 05/14 - For now, continue IV Ceftazidime - Consider discharge in next 1-2 days (2) Depression Qualifiers: Depression Type: unspecified Qualified Code(s): F32.9 - Major depressive disorder, single episode, unspecified Is this a current diagnosis for this admission?: Yes (3) Osteomyelitis due to type 2 diabetes mellitus Is this a current diagnosis for this admission?: Yes Plan: 07/11/2017-patient has open wound lateral aspect of the right foot status post fourth and fifth toes amputations. Surgeons noticed purulent discharge from the open wound today. There is from 05/09/2018 suggest possibility of osteomyelitis of the third cuneiform and tarsal could not be excluded. The surgeon's impression is there is a need for possible right BKA. Patient is on ceftaz Z IM and vancomycin. Lab called me this morning about blood cultures with possible contamination. Will continue the present medications I mean IV antibiotic therapy in the meantime. Please see the surgical note today 05/12/2018 from patient has infection of the right foot in the lateral aspect of the foot, history of fourth and fifth toe amputations. As I mentioned above patient blood cultures came back positive for gram-positive cocci in clusters on IV vancomycin and ceftaz a dime. Lab: WBC is 12,600 improving and temperature is 98.4. 05/14/2018: Afebrile, HHDS, continued on IV cetaz (4) Neurogenic bladder Is this a current diagnosis for this admission?: Yes Plan: CT scan 05/10/2018 with significant bladder distention. MRI lumbar shows stable compression deformity of the superior endplate of L4 previously seen inflammatory changes with marrow edema at at L3 and L4 has resolved. Currently no significant inflammation or marrow edema. No paraspinal or epidural soft tissue changes. Chronic degenerative changes with stenosis. On 05/12/2018, finley catheter removed. On Flomax. 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 use: with sfdc technical architect use Diabetes mellitus complication status: with skin complications Diabetes mellitus complication detail: with foot ulcer Qualified Code(s): E11.621 - Type 2 diabetes mellitus with foot ulcer; L97.509 - Non-pressure chronic ulcer of other part of unspecified foot with unspecified severity; L97.509 - Non-pressure chronic ulcer of other part of unspecified foot with unspecified severity; L97.509 - Non-pressure chronic ulcer of other part of unspecified foot with unspecified severity; L97.509 - Non-pressure chronic ulcer of other part of unspecified foot with unspecified severity; Z79.4 - detention (current) use of insulin; Z79.4 - head turning machine operator (current) use of insulin; Z79.4 - head turning machine operator (current) use of insulin; Z79.4 - head turning machine operator (current ) use of insulin Is this a current diagnosis for this admission?: Yes Plan: Blood sugars continue to fluctuate. - Changed Lantus from 60u qhs to 35u BID - Continue LDISS - Need to optomize Blood sugars prior to discharge (6) Constipation Qualifiers: Constipation type: unspecified constipation type Qualified Code(s): K59.00 - Constipation, unspecified Is this a current diagnosis for this admission?: Yes Plan: No BM since 05/08. - Received Mag Citrate on 05/14 - If no BM, will try Lactulose - Patient refused suppository or enema - Time Time Spent with patient: Less than 15 minutes Anticipated discharge: Home, Home with Homehealth Within: within 48 hours
[2018-05-14] MEDS: ATORVASTATIN CALCIUM 40 MG TABLET PO SCH (22:05)
[2018-05-14] MEDS: TAMSULOSIN HCL 0.4 MG CAP.SR.24H PO SCH (22:05)
[2018-05-15 05:00] LABS: ABSOLUTE BASOPHILS # (AUTO) 0.1 10^3/uL (0.0-0.2); ABSOLUTE EOSINOPHILS # (AUTO) 0.2 10^3/uL (0.0-0.6); ABSOLUTE LYMPHOCYTES (AUTO) 2.1 10^3/uL (0.5-4.7); BASOPHILS % (AUTO) 0.8 % (0-2); HEMATOCRIT 23.2 % (37.9-51.0); LYMPHOCYTES % (AUTO) 18.2 % (13-45); MEAN CORPUSCULAR HEMOGLOBIN 25.9 pg (27.0-33.4); MEAN CORPUSCULAR HGB CONC 32.5 g/dL (32.0-36.0); MEAN CORPUSCULAR VOLUME 80 fl (80-97); MONOCYTES % (AUTO) 8.9 % (3-13); PLATELET COUNT 425 10^3/uL (150-450); RED BLOOD COUNT 2.91 10^6/uL (4.35-5.55); RED CELL DISTRIBUTION WIDTH 16.4 % (11.5-14.0); SEGMENTED NEUTROPHILS % (AUTO) 70.1 % (42-78); TOTAL CELLS COUNTED % (AUTO) 100 %; WHITE BLOOD COUNT 11.4 10^3/uL (4.0-10.5)
[2018-05-15 05:05] LABS: HEMOGLOBIN 7.5 g/dL (13.5-17.0)
[2018-05-15] MEDS: HYDRALAZINE HCL 50 MG TABLET PO SCH ×3 (05:09→22:18)
[2018-05-15 05:33] LABS: ANION GAP 11 (5-19); BLOOD UREA NITROGEN 29 mg/dL (7-20); CARBON DIOXIDE 27 mmol/L (22-30); CHLORIDE 101 mmol/L (98-107); GLUCOSE 186 mg/dL (75-110); POTASSIUM 5.6 mmol/L (3.6-5.0); SODIUM 138.6 mmol/L (137-145)
[2018-05-15] MEDS: INSULIN LISPRO 100 UNIT/ML 3 ML VIAL SUBCUT PRN ×3 (07:52→22:18)
--- NOTE | 2018-05-15 09:05 | PDOC PROGRESS REPORT ---
Subjective Progress Note for:: 05/15/18 Subjective:: Patient states he feels better still is not moving much; still has not gotten in the shower Reason For Visit: POST OF INFECTION RIGHT FOOT Physical Exam Vital Signs: Temp Pulse Resp BP Pulse Ox 97.9 F 71 18 172/61 H 100 05/15/18 07:28 05/15/18 07:28 05/15/18 07:28 05/15/18 07:28 05/15/18 07:28 Intake & Output 05/14/18 05/15/18 05/16/18 06:59 06:59 06:59 Intake Total 2732 1691 Output Total 300 1050 Balance 2432 641 Weight 87.5 kg GI/Abdominal exam: PRESENT: other - Dressing removed; no active pus; total of 4 wounds with packing removed, no active smell. Large wounds granulating ; smaller wounds decompressed Results Laboratory Results: 05/15/18 03:48 05/15/18 03:48 05/14/18 05/15/18 05/15/18 10:30 03:48 03:48 WBC 11.4 H RBC 2.91 L Hgb 7.5 L Hct 23.2 L MCV 80 MCH 25.9 L MCHC 32.5 RDW 16.4 H Plt Count 425 Seg Neutrophils % 70.1 Lymphocytes % 18.2 Monocytes % 8.9 Eosinophils % 2.0 Basophils % 0.8 Absolute Neutrophils 8.0 Absolute Lymphocytes 2.1 Absolute Monocytes 1.0 Absolute Eosinophils 0.2 Absolute Basophils 0.1 Sodium 138.6 Potassium 5.6 H Chloride 101 Carbon Dioxide 27 Anion Gap 11 BUN 29 H Creatinine 1.17 1.13 Est GFR ( Amer) > 60 > 60 Est GFR (Non-Af Amer) > 60 > 60 Glucose 186 H Calcium 8.0 L Impressions: Foot X-Ray 05/09/18 00:00 IMPRESSION: Interval amputation of right 4th metatarsal right 4th toe. The possibility of osteomyelitis of the 3rd cuneiform and tarsal cuboid cannot be excluded. Soft tissue deformity laterally. Soft tissue swelling dorsally. Abdomen/Pelvis CT 05/09/18 12:30 IMPRESSION: 1. Marked bladder distention. If clinically indicated, consider catheterization 2. Cholelithiasis. 3. Changes compatible with chronic discitis L3-4 and compression of the L4 vertebra again noted. At L4-5 there is evidence of posterior central disc protrusion extending laterally to the right. Central canal stenosis. At L5-S1, foramina stenosis bilaterally. 4. Constipation. Lumbar Spine MRI 05/10/18 00:00 IMPRESSION: 1. STABLE COMPRESSION DEFORMITY OF THE SUPERIOR ENDPLATE OF L4. PREVIOUSLY SEEN INFLAMMATORY CHANGES WITH MARROW EDEMA AT L3 AND L4 HAS RESOLVED. CURRENTLY NO SIGNIFICANT INFLAMMATION OR MARROW EDEMA. NO PARASPINAL OR EPIDURAL SOFT TISSUE CHANGES. 2. CHRONIC DEGENERATIVE CHANGES WITH STENOSIS DESCRIBED. SIMILAR TO THE PRIOR STUDY. Assessment & Plan - Diagnosis (1) Diabetic foot infection Is this a current diagnosis for this admission?: Yes (2) Diabetic foot ulcer Qualifiers: Diabetic foot ulcer location: midfoot Diabetes mellitus type: type 2 Laterality: right Non-pressure ulcer stage: unspecified non-pressure ulcer stage Qualified Code(s): E11.621 - Type 2 diabetes mellitus with foot ulcer; L97.419 - Non-pressure chronic ulcer of right heel and midfoot with unspecified severity; L97.419 - Non-pressure chronic ulcer of right heel and midfoot with unspecified severity; L97.419 - Non-pressure chronic ulcer of right heel and midfoot with unspecified severity; L97.419 - Non-pressure chronic ulcer of right heel and midfoot with unspecified severity Is this a current diagnosis for this admission?: Yes Plan: Impression: Complex septic foot secondary to staph aureus infection due to neglect, diabetes, with multiple wounds, open, majority granulating Recommendations: 1. We will get patient in the shower today 2. Continue local wound care; likelihood of foot salvage remains poor; patient adamant about keeping his foot. - Time Time Spent with patient: Less than 15 minutes
[2018-05-15] MEDS: POTASSIUM CHLORIDE 10 MEQ CAPSULE.ER PO SCH (09:50)
[2018-05-15] MEDS: MULTIVIT-STRESS FORMULA/ZINC TABLET PO SCH (09:58)
[2018-05-15] MEDS: FAMOTIDINE 20 MG TABLET PO SCH ×2 (09:58→22:18)
[2018-05-15] MEDS: TRAZODONE HCL 50 MG TABLET PO SCH ×2 (09:59→22:18)
[2018-05-15] MEDS: AMLODIPINE BESYLATE 10 MG TABLET PO SCH (09:59)
[2018-05-15] MEDS: INSULIN GLARGINE,HUM.REC.ANLOG 1,000 UNIT/10 ML UNIT SUBCUT SCH ×2 (09:59→17:51)
[2018-05-15] MEDS: DOCUSATE SODIUM 100 MG CAPSULE PO SCH (10:09)
[2018-05-15] MEDS: POLYETHYLENE GLYCOL 3350 POWDER 17 GM/1 PACKET PO SCH (10:09)
[2018-05-15] MEDS: ENOXAPARIN SODIUM INJ 40 MG/0.4 ML DISP.SYRIN SUBCUT SCH (10:09)
[2018-05-15] MEDS: OXYCODONE-ACETAMINOPHEN 5-325 MG TABLET PO PRN ×3 (10:12→22:24)
--- NOTE | 2018-05-15 16:24 | PDOC PROGRESS REPORT ---
Subjective Progress Note for:: 05/15/18 Subjective:: No adverse events overnight. No new complaints. Vital signs been stable. His hemoglobin was low again this morning but it has been low for several days. He has had no fevers. Reason For Visit: POST OF INFECTION RIGHT FOOT Physical Exam Vital Signs: Temp Pulse Resp BP Pulse Ox 98.4 F 65 18 157/66 H 100 05/15/18 11:32 05/15/18 11:32 05/15/18 11:32 05/15/18 11:32 05/15/18 11:32 Intake & Output 05/14/18 05/15/18 05/16/18 06:59 06:59 06:59 Intake Total 2732 1691 584 Output Total 300 1050 350 Balance 2432 641 234 Weight 87.5 kg General appearance: PRESENT: no acute distress, cooperative, well-developed, well-nourished Respiratory exam: PRESENT: unlabored. ABSENT: wheezes Cardiovascular exam: PRESENT: +S1, +S2. ABSENT: tachycardia GI/Abdominal exam: PRESENT: soft. ABSENT: tenderness Extremities exam: PRESENT: Right foot covered in a large bandage with no shadowing Neurological exam: PRESENT: alert, awake, oriented x3 Psychiatric exam: PRESENT: appropriate affect Results Laboratory Results: 05/15/18 03:48 05/15/18 03:48 05/15/18 05/15/18 03:48 03:48 WBC 11.4 H RBC 2.91 L Hgb 7.5 L Hct 23.2 L MCV 80 MCH 25.9 L MCHC 32.5 RDW 16.4 H Plt Count 425 Seg Neutrophils % 70.1 Lymphocytes % 18.2 Monocytes % 8.9 Eosinophils % 2.0 Basophils % 0.8 Absolute Neutrophils 8.0 Absolute Lymphocytes 2.1 Absolute Monocytes 1.0 Absolute Eosinophils 0.2 Absolute Basophils 0.1 Sodium 138.6 Potassium 5.6 H Chloride 101 Carbon Dioxide 27 Anion Gap 11 BUN 29 H Creatinine 1.13 Est GFR ( Amer) > 60 Est GFR (Non-Af Amer) > 60 Glucose 186 H Calcium 8.0 L 05/10/18 17:15 Foot - Diabetic Ulcer Gram Stain - Final 05/10/18 17:15 Foot - Diabetic Ulcer Wound Culture - Final Staphylococcus Aureus E.faecium Vre Impressions: Foot X-Ray 05/09/18 00:00 IMPRESSION: Interval amputation of right 4th metatarsal right 4th toe. The possibility of osteomyelitis of the 3rd cuneiform and tarsal cuboid cannot be excluded. Soft tissue deformity laterally. Soft tissue swelling dorsally. Abdomen/Pelvis CT 05/09/18 12:30 IMPRESSION: 1. Marked bladder distention. If clinically indicated, consider catheterization 2. Cholelithiasis. 3. Changes compatible with chronic discitis L3-4 and compression of the L4 vertebra again noted. At L4-5 there is evidence of posterior central disc protrusion extending laterally to the right. Central canal stenosis. At L5-S1, foramina stenosis bilaterally. 4. Constipation. Lumbar Spine MRI 05/10/18 00:00 IMPRESSION: 1. STABLE COMPRESSION DEFORMITY OF THE SUPERIOR ENDPLATE OF L4. PREVIOUSLY SEEN INFLAMMATORY CHANGES WITH MARROW EDEMA AT L3 AND L4 HAS RESOLVED. CURRENTLY NO SIGNIFICANT INFLAMMATION OR MARROW EDEMA. NO PARASPINAL OR EPIDURAL SOFT TISSUE CHANGES. 2. CHRONIC DEGENERATIVE CHANGES WITH STENOSIS DESCRIBED. SIMILAR TO THE PRIOR STUDY. Assessment & Plan - Diagnosis (1) MSSA bacteremia Is this a current diagnosis for this admission?: Yes Plan: SM the chart the ceftazidime was ordered. I could not see that in his orders, so I started him on Ancef, because ceftazidime does not have very good gram- positive coverage. I have also ordered an echocardiogram to evaluate for endocarditis. It should be noted that we were already planning on treating him with 6 weeks of IV antibiotic therapy anyway. (2) Diabetic foot infection Is this a current diagnosis for this admission?: Yes Plan: Due to MSSA. On Ancef as noted above. He had a VRE show up in his wound culture. I have chosen not to treat him for VRE at this time. This is because he was on vancomycin previously, and had responded well to it. Also, it was a very low colony count compared to the MSSA. We will be monitoring him for the next couple of days, and if he shows signs of decompensation then we can consider switching him to daptomycin or linezolid. (3) Osteomyelitis due to type 2 diabetes mellitus Is this a current diagnosis for this admission?: Yes Plan: Treatment is as noted above. (4) Osteomyelitis of lumbar vertebra Is this a current diagnosis for this admission?: Yes Plan: This is chronic and has been treated previously. Not complaining of any back pain at this time. (5) Anemia Qualifiers: Anemia type: iron deficiency Is this a current diagnosis for this admission?: Yes Plan: Blood counts have been low but stable. He may require transfusion prior to discharge. We will check an iron panel if one has not already been done. If low, will start him on an iron supplement. - Time Time Spent with patient: 25-34 minutes
[2018-05-15] MEDS ORDERED: OXYCODONE-ACETAMINOPHEN 5-325 MG TABLET ONE (17:48)
[2018-05-15] MEDS: CEFAZOLIN 2 GM/D5W RTU 2 GM/50 ML RTUPB IV SCH (17:52)
[2018-05-15] MEDS: ATORVASTATIN CALCIUM 40 MG TABLET PO SCH (22:18)
[2018-05-15] MEDS: TAMSULOSIN HCL 0.4 MG CAP.SR.24H PO SCH (22:18)
[2018-05-16] MEDS: CEFAZOLIN 2 GM/D5W RTU 2 GM/50 ML RTUPB IV SCH ×3 (02:35→17:40)
[2018-05-16] MEDS: ENOXAPARIN SODIUM INJ 40 MG/0.4 ML DISP.SYRIN SUBCUT SCH (10:40)
[2018-05-16] MEDS: POLYETHYLENE GLYCOL 3350 POWDER 17 GM/1 PACKET PO SCH (10:46)
[2018-05-16] MEDS: LACTULOSE SYRUP 20 GM/30 ML UDCUP PO PRN ×2 (10:47→22:17)
[2018-05-16] MEDS: BISACODYL 5 MG TABEC PO PRN (10:48)
[2018-05-16] MEDS: TRAZODONE HCL 50 MG TABLET PO SCH ×2 (10:48→22:14)
[2018-05-16] MEDS: AMLODIPINE BESYLATE 10 MG TABLET PO SCH (10:48)
[2018-05-16] MEDS: DOCUSATE SODIUM 100 MG CAPSULE PO SCH (10:49)
[2018-05-16] MEDS: MULTIVIT-STRESS FORMULA/ZINC TABLET PO SCH (10:49)
[2018-05-16] MEDS: FAMOTIDINE 20 MG TABLET PO SCH ×2 (10:49→22:14)
[2018-05-16] MEDS: POTASSIUM CHLORIDE 10 MEQ CAPSULE.ER PO SCH (10:50)
[2018-05-16] MEDS: INSULIN GLARGINE,HUM.REC.ANLOG 1,000 UNIT/10 ML UNIT SUBCUT SCH ×2 (10:53→22:12)
--- NOTE | 2018-05-16 11:38 | PDOC PROGRESS REPORT ---
Subjective Progress Note for:: 05/16/18 Subjective:: Patient marginally compliant with recommendations for shower etc. Reason For Visit: POST OF INFECTION RIGHT FOOT Physical Exam Vital Signs: Temp Pulse Resp BP Pulse Ox 97.9 F 69 20 169/74 H 100 05/16/18 07:17 05/16/18 07:17 05/16/18 07:17 05/16/18 07:17 05/16/18 07:17 Intake & Output 05/15/18 05/16/18 05/17/18 06:59 06:59 06:59 Intake Total 1691 1305 50 Output Total 1050 850 Balance 641 455 50 Weight 83.6 kg General appearance: PRESENT: no acute distress Musculoskeletal exam: PRESENT: other - Dressings removed; drainage minimal; no foul smell No active purulence Results Laboratory Results: 05/15/18 03:48 05/15/18 03:48 05/10/18 17:15 Foot - Diabetic Ulcer Gram Stain - Final 05/10/18 17:15 Foot - Diabetic Ulcer Wound Culture - Final Staphylococcus Aureus E.faecium Vre Impressions: Foot X-Ray 05/09/18 00:00 IMPRESSION: Interval amputation of right 4th metatarsal right 4th toe. The possibility of osteomyelitis of the 3rd cuneiform and tarsal cuboid cannot be excluded. Soft tissue deformity laterally. Soft tissue swelling dorsally. Abdomen/Pelvis CT 05/09/18 12:30 IMPRESSION: 1. Marked bladder distention. If clinically indicated, consider catheterization 2. Cholelithiasis. 3. Changes compatible with chronic discitis L3-4 and compression of the L4 vertebra again noted. At L4-5 there is evidence of posterior central disc protrusion extending laterally to the right. Central canal stenosis. At L5-S1, foramina stenosis bilaterally. 4. Constipation. Lumbar Spine MRI 05/10/18 00:00 IMPRESSION: 1. STABLE COMPRESSION DEFORMITY OF THE SUPERIOR ENDPLATE OF L4. PREVIOUSLY SEEN INFLAMMATORY CHANGES WITH MARROW EDEMA AT L3 AND L4 HAS RESOLVED. CURRENTLY NO SIGNIFICANT INFLAMMATION OR MARROW EDEMA. NO PARASPINAL OR EPIDURAL SOFT TISSUE CHANGES. 2. CHRONIC DEGENERATIVE CHANGES WITH STENOSIS DESCRIBED. SIMILAR TO THE PRIOR STUDY. Assessment & Plan - Diagnosis (1) Diabetic foot infection Is this a current diagnosis for this admission?: Yes Plan: Impression: Stable right foot with multiple wounds and noncompliant patient growing staph aureus on appropriate antibiotics Recommendations: 1. Continue local wound care; patient may be ready for outpatient management early next week. (2) Diabetic foot ulcer Qualifiers: Diabetic foot ulcer location: midfoot Diabetes mellitus type: type 2 Laterality: right Non-pressure ulcer stage: unspecified non-pressure ulcer stage Qualified Code(s): E11.621 - Type 2 diabetes mellitus with foot ulcer; L97.419 - Non-pressure chronic ulcer of right heel and midfoot with unspecified severity; L97.419 - Non-pressure chronic ulcer of right heel and midfoot with unspecified severity; L97.419 - Non-pressure chronic ulcer of right heel and midfoot with unspecified severity; L97.419 - Non-pressure chronic ulcer of right heel and midfoot with unspecified severity Is this a current diagnosis for this admission?: Yes
--- NOTE | 2018-05-16 13:05 | XCELERA REPORT ---
[address] [address] Transthoracic Echocardiogram Report Name: LEEANNE WYLIE Age: 57 yrs Gender: Male : 1960 Patient Status: Inpatient Patient Location: [address] [place] [address] Study Date: 05/16/2018 12:21 PM Height: 65 in Weight: 192 lb BSA: 1.9 m2 Procedure: A two-dimensional transthoracic echocardiogram with color flow and Doppler was performed. Study Quality: Poor. The study was technically difficult with many images being suboptimal in quality. Reason For Study: MSSA bacteremia History: MRSA bacteremia / ENDOCARDITIS. Ordering Physician: REY MOISE Performed By: Siria Saldivar Interpretation Summary Normal LV size.No LVH.No defenite regionl wall motion abnormality.LVEF is normal and greater than 55%.LV diastolic function is normal. Poor Valve interogations.No stenotic or regurgitant valvular lesins.No tin vegetations seen,but needs SARA if still suspicion for endocarditis.No pericardial effsion. MMode/2D Measurements & Calculations RVDd: 2.0 cm LVIDd: 4.4 cm FS: 30.7 % Ao root diam: 3.3 cm IVSd: 1.3 cm LVIDs: 3.0 cm EDV(Teich): 85.9 ml Ao root area: 8.5 cm2 LVPWd: 1.0 cm ESV(Teich): 35.7 ml LA dimension: 4.5 cm EF(Teich): 58.5 % LVOT diam: 1.3 cm LVOT area: 1.3 cm2 Doppler Measurements & Calculations MV E max blanka: MV P1/2t max blanka: Ao V2 max: LV V1 max P.1 cm/sec 111.6 cm/sec 124.9 cm/sec 4.8 mmHg MV A max blanka: MV P1/2t: 75.3 msec Ao max P.2 mmHgLV V1 max: 52.3 cm/sec MVA(P1/2t): 2.9 cm2 RUSH(V,D): 1.1 cm2 109.1 cm/sec MV E/A: 2.1 MV dec slope: 434.2 cm/sec2 PA V2 max: TR max blanka: MV P1/2t-pr_phl: 127.6 cm/sec 268.8 cm/sec 75.3 msec PA max P.5 mmHgTR max P.9 mmHg Left Ventricle Normal LV size.No LVH.No defenite regionl wall motion abnormality.LVEF is normal and greater than 55%.LV diastolic function is normal. Poor Valve interogations.No stenotic or regurgitant valvular lesins.No tin vegetations seen,but needs SARA if still suspicion for endocarditis.No pericardial effsion. : REY MOISE > Martha Thomas
--- NOTE | 2018-05-16 14:36 | PDOC PROGRESS REPORT ---
Subjective Progress Note for:: 05/16/18 Subjective:: No adverse events overnight. No new complaints. Vital signs been stable. He reports no change in his condition. He has had no fevers. He is concerned about how he is going to be able to receive his IV antibiotics considering that he is living in a hotel right now. Reason For Visit: POST OF INFECTION RIGHT FOOT Physical Exam Vital Signs: Temp Pulse Resp BP Pulse Ox 97.9 F 69 20 169/74 H 100 05/16/18 07:17 05/16/18 07:17 05/16/18 07:17 05/16/18 07:17 05/16/18 07:17 Intake & Output 05/15/18 05/16/18 05/17/18 06:59 06:59 06:59 Intake Total 1691 1305 50 Output Total 1050 850 Balance 641 455 50 Weight 83.6 kg General appearance: PRESENT: no acute distress, cooperative, well-developed, well-nourished Respiratory exam: PRESENT: unlabored. ABSENT: wheezes Cardiovascular exam: PRESENT: +S1, +S2. ABSENT: tachycardia GI/Abdominal exam: PRESENT: soft. ABSENT: tenderness Extremities exam: PRESENT: Right foot covered in a large bandage with no shadowing Neurological exam: PRESENT: alert, awake, oriented x3 Psychiatric exam: PRESENT: appropriate affect Results Laboratory Results: 05/15/18 03:48 05/15/18 03:48 05/10/18 17:15 Foot - Diabetic Ulcer Gram Stain - Final 05/10/18 17:15 Foot - Diabetic Ulcer Wound Culture - Final Staphylococcus Aureus E.faecium Vre Impressions: Foot X-Ray 05/09/18 00:00 IMPRESSION: Interval amputation of right 4th metatarsal right 4th toe. The possibility of osteomyelitis of the 3rd cuneiform and tarsal cuboid cannot be excluded. Soft tissue deformity laterally. Soft tissue swelling dorsally. Abdomen/Pelvis CT 05/09/18 12:30 IMPRESSION: 1. Marked bladder distention. If clinically indicated, consider catheterization 2. Cholelithiasis. 3. Changes compatible with chronic discitis L3-4 and compression of the L4 vertebra again noted. At L4-5 there is evidence of posterior central disc protrusion extending laterally to the right. Central canal stenosis. At L5-S1, foramina stenosis bilaterally. 4. Constipation. Lumbar Spine MRI 05/10/18 00:00 IMPRESSION: 1. STABLE COMPRESSION DEFORMITY OF THE SUPERIOR ENDPLATE OF L4. PREVIOUSLY SEEN INFLAMMATORY CHANGES WITH MARROW EDEMA AT L3 AND L4 HAS RESOLVED. CURRENTLY NO SIGNIFICANT INFLAMMATION OR MARROW EDEMA. NO PARASPINAL OR EPIDURAL SOFT TISSUE CHANGES. 2. CHRONIC DEGENERATIVE CHANGES WITH STENOSIS DESCRIBED. SIMILAR TO THE PRIOR STUDY. Assessment & Plan - Diagnosis (1) MSSA bacteremia Is this a current diagnosis for this admission?: Yes Plan: SM the chart the ceftazidime was ordered. I could not see that in his orders, so I started him on Ancef, because ceftazidime does not have very good gram- positive coverage. Echocardiogram was negative for valvular vegetations, but it was noted that the views were not very good and if suspicion was high a SARA should be ordered. It should be noted that we were already planning on treating him with 6 weeks of IV antibiotic therapy anyway. Rather than put him through a SARA at this time, or have him transferred for one, since we are going to treat him for 6 weeks anyway, we will have him repeat blood cultures after being off of antibiotics for 4-7 days once he completes his 6 weeks of treatment. If he is still positive at that time, it can be arranged for him to have a SARA. (2) Diabetic foot infection Is this a current diagnosis for this admission?: Yes Plan: Due to MSSA. On Ancef as noted above. He had a VRE show up in his wound culture. I have chosen not to treat him for VRE at this time. This is because he was on vancomycin previously, and had responded well to it. Also, it was a very low colony count compared to the MSSA. We will be monitoring him for the next couple of days, and if he shows signs of decompensation then we can consider switching him to daptomycin or linezolid. (3) Osteomyelitis due to type 2 diabetes mellitus Is this a current diagnosis for this admission?: Yes Plan: Treatment is as noted above. (4) Osteomyelitis of lumbar vertebra Is this a current diagnosis for this admission?: Yes Plan: This is chronic and has been treated previously. Not complaining of any back pain at this time. (5) Anemia Qualifiers: Anemia type: iron deficiency Is this a current diagnosis for this admission?: Yes Plan: Blood counts have been low but stable. Iron studies are pending. - Time Time Spent with patient: 25-34 minutes
[2018-05-16 15:26] LABS: RETICULOCYTE COUNT (AUTO) 3.24 % (0.66-2.85)
[2018-05-16 15:31] LABS: IRON(TIBC) 25.4 ug/dL (49-181)
[2018-05-16 16:38] LABS: FOLATE 9.14 ng/mL (>2.76)
[2018-05-16] MEDS: HYDRALAZINE HCL 50 MG TABLET PO SCH ×3 (17:40→22:13)
[2018-05-16] MEDS: INSULIN LISPRO 100 UNIT/ML 3 ML VIAL SUBCUT PRN (22:13)
[2018-05-16] MEDS: OXYCODONE-ACETAMINOPHEN 5-325 MG TABLET PO PRN (22:14)
[2018-05-16] MEDS: TAMSULOSIN HCL 0.4 MG CAP.SR.24H PO SCH (22:14)
[2018-05-16] MEDS: ATORVASTATIN CALCIUM 40 MG TABLET PO SCH (22:14)
[2018-05-17] MEDS: CEFAZOLIN 2 GM/D5W RTU 2 GM/50 ML RTUPB IV SCH ×4 (02:14→18:50)
[2018-05-17] MEDS: HYDRALAZINE HCL 50 MG TABLET PO SCH ×3 (05:30→21:35)
[2018-05-17] MEDS: AMLODIPINE BESYLATE 10 MG TABLET PO SCH (12:44)
[2018-05-17] MEDS: OXYCODONE-ACETAMINOPHEN 5-325 MG TABLET PO PRN ×2 (12:51→18:50)
[2018-05-17] MEDS: FERROUS SULFATE 325 MG TABLET PO SCH ×2 (13:04→19:27)
[2018-05-17] MEDS: POTASSIUM CHLORIDE 10 MEQ CAPSULE.ER PO SCH (13:04)
[2018-05-17] MEDS: DOCUSATE SODIUM 100 MG CAPSULE PO SCH (13:04)
[2018-05-17] MEDS: TRAZODONE HCL 50 MG TABLET PO SCH ×2 (13:04→21:35)
[2018-05-17] MEDS: INSULIN GLARGINE,HUM.REC.ANLOG 1,000 UNIT/10 ML UNIT SUBCUT SCH ×2 (13:05→19:00)
[2018-05-17] MEDS: ENOXAPARIN SODIUM INJ 40 MG/0.4 ML DISP.SYRIN SUBCUT SCH (13:06)
[2018-05-17] MEDS: FAMOTIDINE 20 MG TABLET PO SCH (13:09)
[2018-05-17] MEDS: MULTIVIT-STRESS FORMULA/ZINC TABLET PO SCH (13:09)
[2018-05-17] MEDS: POLYETHYLENE GLYCOL 3350 POWDER 17 GM/1 PACKET PO SCH (13:09)
--- NOTE | 2018-05-17 16:34 | PDOC PROGRESS REPORT ---
Subjective Progress Note for:: 05/17/18 Subjective:: Patient was seen in his room today. Patient was pretty uncooperative and will not answer questions appropriately or respond to me. He says he is leaving today. Reason For Visit: POST OF INFECTION RIGHT FOOT Physical Exam Vital Signs: Temp Pulse Resp BP Pulse Ox 98.2 F 74 16 187/83 H 99 05/17/18 12:08 05/17/18 12:08 05/17/18 12:08 05/17/18 12:08 05/17/18 12:08 Intake & Output 05/16/18 05/17/18 05/18/18 06:59 06:59 06:59 Intake Total 1305 1784 Output Total 850 2285 Balance 455 -501 Weight 83.6 kg 82.4 kg General appearance: PRESENT: no acute distress. ABSENT: cooperative Head exam: PRESENT: atraumatic Neck exam: ABSENT: carotid bruit, JVD, lymphadenopathy, thyromegaly GI/Abdominal exam: PRESENT: normal bowel sounds, soft. ABSENT: distended, guarding, mass, organolmegaly, rebound, tenderness Rectal exam: PRESENT: deferred Musculoskeletal exam: PRESENT: other - Minimal exam done as patient not cooperative Neurological exam: PRESENT: alert, awake, oriented to person, oriented to place Results Laboratory Results: 05/15/18 03:48 05/15/18 03:48 05/16/18 15:05 Iron 25.4 L TIBC 193 L % Saturation 13 Ferritin 121.00 Vitamin B12 747.0 Folate 9.14 Impressions: Foot X-Ray 05/09/18 00:00 IMPRESSION: Interval amputation of right 4th metatarsal right 4th toe. The possibility of osteomyelitis of the 3rd cuneiform and tarsal cuboid cannot be excluded. Soft tissue deformity laterally. Soft tissue swelling dorsally. Abdomen/Pelvis CT 05/09/18 12:30 IMPRESSION: 1. Marked bladder distention. If clinically indicated, consider catheterization 2. Cholelithiasis. 3. Changes compatible with chronic discitis L3-4 and compression of the L4 vertebra again noted. At L4-5 there is evidence of posterior central disc protrusion extending laterally to the right. Central canal stenosis. At L5-S1, foramina stenosis bilaterally. 4. Constipation. Lumbar Spine MRI 05/10/18 00:00 IMPRESSION: 1. STABLE COMPRESSION DEFORMITY OF THE SUPERIOR ENDPLATE OF L4. PREVIOUSLY SEEN INFLAMMATORY CHANGES WITH MARROW EDEMA AT L3 AND L4 HAS RESOLVED. CURRENTLY NO SIGNIFICANT INFLAMMATION OR MARROW EDEMA. NO PARASPINAL OR EPIDURAL SOFT TISSUE CHANGES. 2. CHRONIC DEGENERATIVE CHANGES WITH STENOSIS DESCRIBED. SIMILAR TO THE PRIOR STUDY. 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 use Diabetes mellitus complication status: with skin complications Diabetes mellitus complication detail: with foot ulcer Qualified Code(s): E11.621 - Type 2 diabetes mellitus with foot ulcer; L97.509 - Non-pressure chronic ulcer of other part of unspecified foot with unspecified severity; L97.509 - Non-pressure chronic ulcer of other part of unspecified foot with unspecified severity; L97.509 - Non-pressure chronic ulcer of other part of unspecified foot with unspecified severity; L97.509 - Non-pressure chronic ulcer of other part of unspecified foot with unspecified severity; 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 Transthoracic echocardiogram was done which revealed no evidence of vegetation. Of course SARA will be as suggested for high at suspicion of vegetations however it appears this patient has been made to treat patient for 6 weeks due to his bacteremia and SARA been deferred at this time. And is very noncompliant and unfortunately his social situation at this time is that he is living in a hotel. Social service will have to arrange wound care as well as IV antibiotics for 6 weeks for him (5) Noncompliance Is this a current diagnosis for this admission?: Yes Plan: This is a recurring theme any major issue with this patient and he actually threatened to sign out AGAINST MEDICAL ADVICE today - Time Time Spent with patient: 15-24 minutes Medications reviewed and adjusted accordingly: Yes Anticipated discharge: Other - Inpatient Certification Based on my medical assessment, after consideration of the patient's comorbidities, presenting symptoms, or acuity I expect that the services needed warrant INPATIENT care.: Yes Medical Necessity: Need for IV Antibiotics
[2018-05-17] MEDS: INSULIN LISPRO 100 UNIT/ML 3 ML VIAL SUBCUT PRN (21:35)
[2018-05-17] MEDS: TAMSULOSIN HCL 0.4 MG CAP.SR.24H PO SCH (21:35)
--- NOTE | 2018-05-18 00:05 | PDOC PROGRESS REPORT ---
Subjective Progress Note for:: 05/17/18 Subjective:: Patient not seen because he is uncooperative and wants to leave against medical advise. Reason For Visit: POST OF INFECTION RIGHT FOOT Physical Exam Vital Signs: Temp Pulse Resp BP Pulse Ox 98.2 F 74 16 187/83 H 99 05/17/18 12:08 05/17/18 12:08 05/17/18 12:08 05/17/18 12:08 05/17/18 12:08 Intake & Output 05/16/18 05/17/18 05/18/18 06:59 06:59 06:59 Intake Total 1305 1784 849 Output Total 850 2285 900 Balance 455 -501 -51 Weight 83.6 kg 82.4 kg Exam: dressing of foot changed by nurses. No apparent drainage. Results Laboratory Results: 05/15/18 03:48 05/15/18 03:48 Impressions: Foot X-Ray 05/09/18 00:00 IMPRESSION: Interval amputation of right 4th metatarsal right 4th toe. The possibility of osteomyelitis of the 3rd cuneiform and tarsal cuboid cannot be excluded. Soft tissue deformity laterally. Soft tissue swelling dorsally. Abdomen/Pelvis CT 05/09/18 12:30 IMPRESSION: 1. Marked bladder distention. If clinically indicated, consider catheterization 2. Cholelithiasis. 3. Changes compatible with chronic discitis L3-4 and compression of the L4 vertebra again noted. At L4-5 there is evidence of posterior central disc protrusion extending laterally to the right. Central canal stenosis. At L5-S1, foramina stenosis bilaterally. 4. Constipation. Lumbar Spine MRI 05/10/18 00:00 IMPRESSION: 1. STABLE COMPRESSION DEFORMITY OF THE SUPERIOR ENDPLATE OF L4. PREVIOUSLY SEEN INFLAMMATORY CHANGES WITH MARROW EDEMA AT L3 AND L4 HAS RESOLVED. CURRENTLY NO SIGNIFICANT INFLAMMATION OR MARROW EDEMA. NO PARASPINAL OR EPIDURAL SOFT TISSUE CHANGES. 2. CHRONIC DEGENERATIVE CHANGES WITH STENOSIS DESCRIBED. SIMILAR TO THE PRIOR STUDY. Assessment & Plan - Time Time Spent with patient: Less than 15 minutes - Plan Summary Plan Summary: Continue IV antibiotics. Will re-evaluate wound tmorrow when hopefully patient is more cooperative.
[2018-05-18] MEDS: CEFAZOLIN 2 GM/D5W RTU 2 GM/50 ML RTUPB IV SCH ×3 (03:49→18:27)
[2018-05-18] MEDS: FAMOTIDINE 20 MG TABLET PO SCH ×3 (03:49→21:27)
[2018-05-18] MEDS: ATORVASTATIN CALCIUM 40 MG TABLET PO SCH ×2 (03:49→21:27)
[2018-05-18] MEDS: HYDRALAZINE HCL 50 MG TABLET PO SCH ×3 (05:39→21:25)
[2018-05-18] MEDS: ENOXAPARIN SODIUM INJ 40 MG/0.4 ML DISP.SYRIN SUBCUT SCH (10:10)
[2018-05-18] MEDS: LACTULOSE SYRUP 20 GM/30 ML UDCUP PO PRN ×2 (10:10→21:39)
[2018-05-18] MEDS: DOCUSATE SODIUM 100 MG CAPSULE PO SCH (10:11)
[2018-05-18] MEDS: OXYCODONE-ACETAMINOPHEN 5-325 MG TABLET PO PRN ×3 (10:11→23:00)
[2018-05-18] MEDS: FERROUS SULFATE 325 MG TABLET PO SCH ×2 (10:13→17:20)
[2018-05-18] MEDS: TRAZODONE HCL 50 MG TABLET PO SCH ×2 (10:14→21:25)
[2018-05-18] MEDS: POLYETHYLENE GLYCOL 3350 POWDER 17 GM/1 PACKET PO SCH (10:15)
[2018-05-18] MEDS: AMLODIPINE BESYLATE 10 MG TABLET PO SCH (10:16)
[2018-05-18] MEDS: MULTIVIT-STRESS FORMULA/ZINC TABLET PO SCH (10:19)
[2018-05-18] MEDS: INSULIN GLARGINE,HUM.REC.ANLOG 1,000 UNIT/10 ML UNIT SUBCUT SCH ×2 (10:32→17:28)
[2018-05-18] MEDS ORDERED: NORMAL SALINE 10 ML SDV (AFTER EACH USE) IV PRN (15:07)
--- NOTE | 2018-05-18 15:18 | RADIOLOGY REPORT (SQ) ---
EXAM DESCRIPTION: PICC INSERTION; FLUORO/CV PLACEMENT; U/S GUIDE FOR VASCULAR ACCESS COMPLETED DATE/TIME: 05/18/2018 2:53 pm REASON FOR STUDY: outpatient 6 wk antibiotic therapy; IV ABX; IV ACCESS COMPARISON: 04/23/2018 right PICC catheter placement FLUOROSCOPY TIME: 44 seconds 1 digital chest fluoro image and 1 ultrasound image saved to PACS. TECHNIQUE: Fluoroscopic and ultrasound guided PICC placement. LIMITATIONS: None. PROCEDURE: After written consent and assessment were obtained, the patient was brought into the fluo roscopy room and placed supine on the table. Ultrasound evaluation of potential access sites were per formed. After successfully identifying a patent left basilic vein, the left arm was prepped and drape d in a sterile fashion along with the ultrasound probe. The entry site was anesthetized with 1% lidoc kory. A 21 gauge 7 cm needle was advanced through the skin and into the basilic vein under live ultra sound guidance. An ultrasound image was saved to PACS confirming access site. A .018 guide wire was then inserted through the needle and into the venous system. The needle was then removed and an 11 b lade scalpel was used to make a 1cm skin incision. A 5 fr peel-away sheath was advanced over the wir e and into the venous system. A measurement was then made using the existing wire and live fluoroscop ic guidance. The wire was then removed and trimmed. The PICC was advanced through the peel-away sheat h and into the venous system. The peel-away sheath was removed and the catheter was adhered to the pa tients arm with a stat lock. The catheter was then aspirated and flushed and a sterile bandage was pl aced over the access site. A fluoroscopic spot image was saved to PACS confirming the catheter tip w ithin the superior vena cava. IMPRESSION: SUCCESSFUL PLACEMENT OF A 5 FR DUAL LUMEN 37 CM PICC IN THE LEFT BASILIC VEIN. COMMENT: Patient medication list reviewed: Yes- Quality ID# 130:Eligible professional attests to doc umenting in the medical record they obtained, updated, or reviewed the patient's current medications. . Quality ID 145: Final reports for procedures using fluoroscopy that document radiation exposure han loi, or exposure time and number of fluorographic images (if radiation exposure indices are not avail able) Quality ID #76: The patient was prepped and draped using maximum sterile barrier technique including cap, mask, sterile gown, sterile gloves, a large sterile sheet, hand hygiene, and 2% Chlorhexidine fo r cutaneous antisepsis. When ultrasound is used, sterile ultrasound techniques are followed requiring sterile gel and sterile probes. TECHNICAL DOCUMENTATION: JOB ID: [id number] [employer]- All Rights Reserved rev-11/06 Reading location - IP/workstation name: [email or web address] [id number]
[2018-05-18] MEDS: INSULIN LISPRO 100 UNIT/ML 3 ML VIAL SUBCUT PRN ×2 (17:20→21:38)
--- NOTE | 2018-05-18 18:29 | PDOC PROGRESS REPORT ---
Subjective Progress Note for:: 05/18/18 Subjective:: Patient was seen in his room today. He is much more cooperative today. Extended discussion re his living situation and need for prolonged IV abx. Also talked with Elkin (his outside social media marketing specialist) as well as Viky Marsh re need for IV antibiotics. She will work on the situation regarding Home health. I discussed with Dr. Melani patton antibiotic choice given patient;s situation and we both agree that although Ceftriaxone 2g daily is not the first choice this may be the best alternative as he can get this daily. This will be kept in mind as we make arrangements to transition from hospital Reason For Visit: POST OF INFECTION RIGHT FOOT Physical Exam Vital Signs: Temp Pulse Resp BP Pulse Ox 98.3 F 71 18 147/70 H 100 05/18/18 15:38 05/18/18 15:38 05/18/18 15:38 05/18/18 15:38 05/18/18 15:38 Intake & Output 05/17/18 05/18/18 05/19/18 06:59 06:59 06:59 Intake Total 1784 1323 Output Total 2285 900 1150 Balance -501 423 -1150 Weight 82.4 kg 82.4 kg General appearance: PRESENT: no acute distress, well-developed, well-nourished Head exam: PRESENT: atraumatic, normocephalic Eye exam: PRESENT: conjunctiva pink, EOMI, PERRLA. ABSENT: scleral icterus Ear exam: PRESENT: normal external ear exam Mouth exam: PRESENT: moist, tongue midline Neck exam: ABSENT: carotid bruit, JVD, lymphadenopathy, thyromegaly Respiratory exam: PRESENT: clear to auscultation manuel. ABSENT: rales, rhonchi, wheezes Cardiovascular exam: PRESENT: RRR. ABSENT: diastolic murmur, rubs, systolic murmur Pulses: PRESENT: normal dorsalis pedis pul, other - poor pedal pulse foot Vascular exam: PRESENT: normal capillary refill GI/Abdominal exam: PRESENT: normal bowel sounds, soft. ABSENT: distended, guarding, mass, organolmegaly, rebound, tenderness Rectal exam: PRESENT: deferred Extremities exam: PRESENT: full ROM. ABSENT: calf tenderness, clubbing, pedal edema Musculoskeletal exam: PRESENT: ambulatory, deformity, other - Right foot eith linear debrided wound, clean base lateral aspect, no discharges seen quarter sized ulcer on medial aspect of R foot and some small shallow ulcers on anterior aspect. Neurological exam: PRESENT: alert, awake, oriented to person, oriented to place , oriented to time, oriented to situation, CN II-XII grossly intact. ABSENT: motor sensory deficit Psychiatric exam: PRESENT: appropriate affect, normal mood. ABSENT: homicidal ideation, suicidal ideation Skin exam: PRESENT: dry, intact, warm. ABSENT: cyanosis, rash Results Laboratory Results: 05/15/18 03:48 05/15/18 03:48 05/13/18 16:00 Blood Blood Culture - Final NO GROWTH IN 5 DAYS 05/13/18 15:22 Blood Blood Culture - Final NO GROWTH IN 5 DAYS Impressions: Foot X-Ray 05/09/18 00:00 IMPRESSION: Interval amputation of right 4th metatarsal right 4th toe. The possibility of osteomyelitis of the 3rd cuneiform and tarsal cuboid cannot be excluded. Soft tissue deformity laterally. Soft tissue swelling dorsally. Abdomen/Pelvis CT 05/09/18 12:30 IMPRESSION: 1. Marked bladder distention. If clinically indicated, consider catheterization 2. Cholelithiasis. 3. Changes compatible with chronic discitis L3-4 and compression of the L4 vertebra again noted. At L4-5 there is evidence of posterior central disc protrusion extending laterally to the right. Central canal stenosis. At L5-S1, foramina stenosis bilaterally. 4. Constipation. Lumbar Spine MRI 05/10/18 00:00 IMPRESSION: 1. STABLE COMPRESSION DEFORMITY OF THE SUPERIOR ENDPLATE OF L4. PREVIOUSLY SEEN INFLAMMATORY CHANGES WITH MARROW EDEMA AT L3 AND L4 HAS RESOLVED. CURRENTLY NO SIGNIFICANT INFLAMMATION OR MARROW EDEMA. NO PARASPINAL OR EPIDURAL SOFT TISSUE CHANGES. 2. CHRONIC DEGENERATIVE CHANGES WITH STENOSIS DESCRIBED. SIMILAR TO THE PRIOR STUDY. Guidance Fluoroscopy 05/18/18 00:00 IMPRESSION: SUCCESSFUL PLACEMENT OF A 5 FR DUAL LUMEN 37 CM PICC IN THE LEFT BASILIC VEIN. Interventional Vascular Procedure 05/18/18 00:00 IMPRESSION: SUCCESSFUL PLACEMENT OF A 5 FR DUAL LUMEN 37 CM PICC IN THE LEFT BASILIC VEIN. PICC Line Insertion 05/18/18 00:00 IMPRESSION: SUCCESSFUL PLACEMENT OF A 5 FR DUAL LUMEN 37 CM PICC IN THE LEFT BASILIC VEIN. 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: with ferry terminal supervisor use Diabetes mellitus complication status: with skin complications Diabetes mellitus complication detail: with foot ulcer Qualified Code(s): E11.621 - Type 2 diabetes mellitus with foot ulcer; L97.509 - Non-pressure chronic ulcer of other part of unspecified foot with unspecified severity; L97.509 - Non-pressure chronic ulcer of other part of unspecified foot with unspecified severity; L97.509 - Non-pressure chronic ulcer of other part of unspecified foot with unspecified severity; L97.509 - Non-pressure chronic ulcer of other part of unspecified foot with unspecified severity; Z79.4 - residential (current) use of insulin; Z79.4 - residential (current) use of insulin; Z79.4 - residential (current) use of insulin; Z79.4 - residential (current ) use of insulin Is this a current diagnosis for this admission?: Yes (4) MSSA bacteremia Is this a current diagnosis for this admission?: Yes (5) Noncompliance Is this a current diagnosis for this admission?: Yes - Time Time Spent with patient: 35 or more minutes Medications reviewed and adjusted accordingly: Yes Anticipated discharge: Home with Homehealth Within: within 48 hours - Inpatient Certification Based on my medical assessment, after consideration of the patient's comorbidities, presenting symptoms, or acuity I expect that the services needed warrant INPATIENT care.: Yes Medical Necessity: Need Close Monitoring Due to Risk of Patient Decompensation, Need for IV Antibiotics - Plan Summary Plan Summary: PICC LINE DC to 'home' once arrangements made
--- NOTE | 2018-05-18 19:11 | Progress Note ---
Provider Note Provider Note: ID Consult Note Discussed patient with Dr Michelle via telephone briefly this afternoon and reviewed pt's chart, including VS, labs, imaging reports and provider reports. Mr. Mcleod is a 57 year old man with PMH including obesity, poorly controlled diabetes with noncompliance, R diabetic foot osteomyelitis s/p 4th and 5th ray amputations, tobacco use, PVD and homelessness who presented on 05/07/18 with generalized malaise and fatigue associated with malodorous purulent drainage from the R foot wound. The patient's right foot was malodorous, edematous and had some necrotic soft tissue that required bedside debridement on 05/07. Pt was febrile to 101.7 F on presentation. He has been noted to have a 2/6 systolic murmur. Labs revealed leukocytosis, hyperglycemia, elevated creatinine. Blood cultures on admission grew MSSA in one set. The other set of blood cultures on 05/07 grew Corynebacterium species, a contaminant. The patient had plain films of the R foot that showed soft tissue swelling dorsally and marked demineralization of the R 3rd cuneiform and anterior cuboid for which osteomyelitis could not be excluded. Ultrasound of the R foot showed a deep soft tissue fluid density concerning for an infectious process, and the patient was taken back to the OR on 05/10 for debridement of an abscess cavity. From this, 4+ MSSA grew in culture of the submitted tissue, along with 1+ VRE. Other studies have included repeat blood cultures on 05/13 that did not show any growth. TTE did not show any gross vegetations but the study was technically difficult with many images being suboptimal in quality. MRI of the lumbar spine showed stable compression deformity at L4 and resolution of previously seen infalmmatory changes with marrow edema at L3-L4; no paraspinal or epidural soft tissue changes and currently no significant inflammation or marrow edema to suggest infectious spondylitis or complications related thereof. Impression sepsis due to MSSA bacteremia secondary to diabetic foot infection with possible residual osteomyelitis and abscess - s/p debridement, with cultures from the abscess yielding 4+ MSSA. This appears to be the source of the bacteremia. In mixed infections, focused antibiotic therapy aimed at targeting Enterococcus is often not required, and the culture obtained can reflect some skin contaminants/colonists in addition to deeper pathogens. The 1+ VRE that also grew from the tissue culture, I agree , is most likely a contaminant in the overall clinical picture and not in need of dedicated antibiotic therapy. - As discussed with Dr Michelle, the patient is suspected of having residual osteomyelitis. He has plain film changes that are potentially compatible with osteomyelitis, and with recurrent infection - not to mention the poor ability of his TTE to exclude endocarditis - he would likely benefit from a prolonged course of IV antibiotic therapy for MSSA. - The best treatment for MSSA bacteremia or osteomyelitis would be either IV cefazolin (2 g IV every 8 hours, as long as creatinine clearance remains over 30 ) or IV nafcillin 12 g continuous infusion. IV Rocephin 2 g daily has been used as an alternative treatment for MSSA osteoarticular infections, but - for MSSA bacteremia - there are studies that indicate Rocephin may be inferior for treatment compared to IV cefazolin or IV nafcillin (or IV oxacillin, IV cloxacillin). - IV daptomycin at a dose of approximately 8 mg/kg daily could be considered as an alternative but would require stopping pt's statin (unless absolutely needed ) and would likely be prohibitively costly to the patient. Recommendations - Preference should be given to treating the patient with IV cefazolin 2 g q8h for 6 weeks, starting from the date of negative blood cultures (projected end date 06/24/18). - My understanding is that the patient is homeless and has significant socioeconomic limitations to whether preferred antibiotic therapy might be possible, and in this setting, IV Rocephin 2 g daily for 6 weeks would likely be the most viable alternative, bearing in mind that it may not be as effective. Steive Polo MD [facility] Infectious Diseases pager [phone]
[2018-05-18] MEDS: TAMSULOSIN HCL 0.4 MG CAP.SR.24H PO SCH (21:26)
[2018-05-18] MEDS: NORMAL SALINE 10 ML SDV (SCHEDULED) IV SCH (21:27)
[2018-05-18] MEDS: BISACODYL 5 MG TABEC PO PRN (21:38)
[2018-05-19] MEDS: CEFAZOLIN 2 GM/D5W RTU 2 GM/50 ML RTUPB IV SCH ×3 (03:27→18:43)
[2018-05-19] MEDS: OXYCODONE-ACETAMINOPHEN 5-325 MG TABLET PO PRN ×3 (05:58→18:52)
[2018-05-19] MEDS: HYDRALAZINE HCL 50 MG TABLET PO SCH ×3 (05:58→21:18)
[2018-05-19 06:41] LABS: ABSOLUTE EOSINOPHILS # (AUTO) 0.1 10^3/uL (0.0-0.6); ABSOLUTE MONOCYTES (AUTO) 0.8 10^3/uL (0.1-1.4); ABSOLUTE NEUT (AUTO) 6.2 10^3/uL (1.7-8.2); BASOPHILS % (AUTO) 0.4 % (0-2); EOSINOPHILS % (AUTO) 1.3 % (0-6); HEMATOCRIT 24.8 % (37.9-51.0); LYMPHOCYTES % (AUTO) 21.7 % (13-45); MEAN CORPUSCULAR HEMOGLOBIN 25.8 pg (27.0-33.4); MEAN CORPUSCULAR HGB CONC 31.9 g/dL (32.0-36.0); MEAN CORPUSCULAR VOLUME 81 fl (80-97); MONOCYTES % (AUTO) 8.4 % (3-13); PLATELET COUNT 510 10^3/uL (150-450); RED BLOOD COUNT 3.08 10^6/uL (4.35-5.55); RED CELL DISTRIBUTION WIDTH 16.9 % (11.5-14.0); SEGMENTED NEUTROPHILS % (AUTO) 68.2 % (42-78); TOTAL CELLS COUNTED % (AUTO) 100 %; WHITE BLOOD COUNT 9.1 10^3/uL (4.0-10.5)
[2018-05-19 06:55] LABS: HEMOGLOBIN 7.9 g/dL (13.5-17.0)
[2018-05-19 07:10] LABS: ANION GAP 12 (5-19); BLOOD UREA NITROGEN 35 mg/dL (7-20); CALCIUM 8.6 mg/dL (8.4-10.2); CARBON DIOXIDE 26 mmol/L (22-30); CHLORIDE 101 mmol/L (98-107); GLUCOSE 244 mg/dL (75-110); POTASSIUM 5.8 mmol/L (3.6-5.0); SODIUM 139.1 mmol/L (137-145)
[2018-05-19] MEDS ORDERED: 1/2 NORMAL SALINE 1,000 ML IV PRN (09:33)
[2018-05-19] MEDS ORDERED: SODIUM POLYSTYRENE SULFONATE 15 GM/60 ML PO ONE (09:45)
[2018-05-19] MEDS: MULTIVIT-STRESS FORMULA/ZINC TABLET PO SCH (10:51)
[2018-05-19] MEDS: FERROUS SULFATE 325 MG TABLET PO SCH ×2 (10:51→18:43)
[2018-05-19] MEDS: AMLODIPINE BESYLATE 10 MG TABLET PO SCH (10:51)
[2018-05-19] MEDS: NORMAL SALINE 10 ML SDV (SCHEDULED) IV SCH ×2 (10:51→21:19)
[2018-05-19] MEDS: DOCUSATE SODIUM 100 MG CAPSULE PO SCH (10:54)
[2018-05-19] MEDS: TRAZODONE HCL 50 MG TABLET PO SCH ×2 (10:54→21:18)
[2018-05-19] MEDS: INSULIN LISPRO 100 UNIT/ML 3 ML VIAL SUBCUT PRN ×2 (10:55→14:58)
[2018-05-19] MEDS: FAMOTIDINE 20 MG TABLET PO SCH ×3 (10:55→21:19)
[2018-05-19] MEDS: ENOXAPARIN SODIUM INJ 40 MG/0.4 ML DISP.SYRIN SUBCUT SCH (10:56)
[2018-05-19] MEDS: INSULIN GLARGINE,HUM.REC.ANLOG 1,000 UNIT/10 ML UNIT SUBCUT SCH ×2 (10:56→18:35)
[2018-05-19] MEDS: POLYETHYLENE GLYCOL 3350 POWDER 17 GM/1 PACKET PO SCH (10:56)
--- NOTE | 2018-05-19 11:08 | PDOC PROGRESS REPORT ---
Subjective Progress Note for:: 05/19/18 Subjective:: Patient was seen in his room today. He is much more cooperative today. Extended discussion again regarding his living situation. In fact I did listen to his conversation with the hotel, [facility] and they have promised to hold his room and allow him to make a payment by May 26 so this should not be a problem for patient to be discharged. I also attempted to [employer] social science teacher about the arrangements for home health and this is currently in progress. As soon as we can find a suitable arrangement for home health and patient remains stable he can be discharge Reason For Visit: POST OF INFECTION RIGHT FOOT Physical Exam Vital Signs: Temp Pulse Resp BP Pulse Ox 97.9 F 62 16 138/67 H 98 05/19/18 07:46 05/19/18 07:46 05/19/18 07:46 05/19/18 07:46 05/19/18 07:46 Intake & Output 05/18/18 05/19/18 05/20/18 06:59 06:59 06:59 Intake Total 1323 774 Output Total 900 1150 Balance 423 -376 Weight 82.4 kg 82.4 kg General appearance: PRESENT: no acute distress, well-developed, well-nourished Head exam: PRESENT: atraumatic, normocephalic Eye exam: PRESENT: conjunctiva pink, EOMI, PERRLA. ABSENT: scleral icterus Ear exam: PRESENT: normal external ear exam Mouth exam: PRESENT: moist, tongue midline Neck exam: ABSENT: carotid bruit, JVD, lymphadenopathy, thyromegaly Respiratory exam: PRESENT: clear to auscultation manuel. ABSENT: rales, rhonchi, wheezes Cardiovascular exam: PRESENT: RRR. ABSENT: diastolic murmur, rubs, systolic murmur Pulses: PRESENT: normal dorsalis pedis pul Vascular exam: PRESENT: normal capillary refill GI/Abdominal exam: PRESENT: normal bowel sounds, soft. ABSENT: distended, guarding, mass, organolmegaly, rebound, tenderness Rectal exam: PRESENT: deferred Extremities exam: PRESENT: full ROM, pedal edema, other - R foot now with wound vac. ABSENT: calf tenderness, clubbing Musculoskeletal exam: PRESENT: ambulatory Neurological exam: PRESENT: alert, awake, oriented to person, oriented to place , oriented to time, oriented to situation, CN II-XII grossly intact. ABSENT: motor sensory deficit Psychiatric exam: PRESENT: appropriate affect, normal mood. ABSENT: homicidal ideation, suicidal ideation Skin exam: PRESENT: dry, intact, warm. ABSENT: cyanosis, rash Results Laboratory Results: 05/19/18 06:00 05/19/18 06:00 05/19/18 05/19/18 06:00 06:00 WBC 9.1 RBC 3.08 L Hgb 7.9 L Hct 24.8 L MCV 81 MCH 25.8 L MCHC 31.9 L RDW 16.9 H Plt Count 510 H Seg Neutrophils % 68.2 Lymphocytes % 21.7 Monocytes % 8.4 Eosinophils % 1.3 Basophils % 0.4 Absolute Neutrophils 6.2 Absolute Lymphocytes 2.0 Absolute Monocytes 0.8 Absolute Eosinophils 0.1 Absolute Basophils 0.0 Sodium 139.1 Potassium 5.8 H Chloride 101 Carbon Dioxide 26 Anion Gap 12 BUN 35 H Creatinine 1.73 H Est GFR ( Amer) 49 L Est GFR (Non-Af Amer) 41 L Glucose 244 H Calcium 8.6 05/13/18 16:00 Blood Blood Culture - Final NO GROWTH IN 5 DAYS 05/13/18 15:22 Blood Blood Culture - Final NO GROWTH IN 5 DAYS Impressions: Foot X-Ray 05/09/18 00:00 IMPRESSION: Interval amputation of right 4th metatarsal right 4th toe. The possibility of osteomyelitis of the 3rd cuneiform and tarsal cuboid cannot be excluded. Soft tissue deformity laterally. Soft tissue swelling dorsally. Abdomen/Pelvis CT 05/09/18 12:30 IMPRESSION: 1. Marked bladder distention. If clinically indicated, consider catheterization 2. Cholelithiasis. 3. Changes compatible with chronic discitis L3-4 and compression of the L4 vertebra again noted. At L4-5 there is evidence of posterior central disc protrusion extending laterally to the right. Central canal stenosis. At L5-S1, foramina stenosis bilaterally. 4. Constipation. Lumbar Spine MRI 05/10/18 00:00 IMPRESSION: 1. STABLE COMPRESSION DEFORMITY OF THE SUPERIOR ENDPLATE OF L4. PREVIOUSLY SEEN INFLAMMATORY CHANGES WITH MARROW EDEMA AT L3 AND L4 HAS RESOLVED. CURRENTLY NO SIGNIFICANT INFLAMMATION OR MARROW EDEMA. NO PARASPINAL OR EPIDURAL SOFT TISSUE CHANGES. 2. CHRONIC DEGENERATIVE CHANGES WITH STENOSIS DESCRIBED. SIMILAR TO THE PRIOR STUDY. Guidance Fluoroscopy 05/18/18 00:00 IMPRESSION: SUCCESSFUL PLACEMENT OF A 5 FR DUAL LUMEN 37 CM PICC IN THE LEFT BASILIC VEIN. Interventional Vascular Procedure 05/18/18 00:00 IMPRESSION: SUCCESSFUL PLACEMENT OF A 5 FR DUAL LUMEN 37 CM PICC IN THE LEFT BASILIC VEIN. PICC Line Insertion 05/18/18 00:00 IMPRESSION: SUCCESSFUL PLACEMENT OF A 5 FR DUAL LUMEN 37 CM PICC IN THE LEFT BASILIC VEIN. 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 insulin use: with usp use Diabetes mellitus complication status: with skin complications Diabetes mellitus complication detail: with foot ulcer Qualified Code(s): E11.621 - Type 2 diabetes mellitus with foot ulcer; L97.509 - Non-pressure chronic ulcer of other part of unspecified foot with unspecified severity; L97.509 - Non-pressure chronic ulcer of other part of unspecified foot with unspecified severity; L97.509 - Non-pressure chronic ulcer of other part of unspecified foot with unspecified severity; L97.509 - Non-pressure chronic ulcer of other part of unspecified foot with unspecified severity; Z79.4 - group home (current) use of insulin; Z79.4 - group home (current) use of insulin; Z79.4 - group home (current) use of insulin; Z79.4 - 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 Will give Kayexalate (7) Acute renal failure Is this a current diagnosis for this admission?: Yes Plan: Cautious IVF hydration (8) Anemia Qualifiers: Anemia type: iron deficiency Is this a current diagnosis for this admission?: Yes Plan: Will continue to monitor and transfuse as needed - Time Time Spent with patient: 25-34 minutes Medications reviewed and adjusted accordingly: Yes Anticipated discharge: Home with Homehealth Within: within 48 hours
[2018-05-19] MEDS: TAMSULOSIN HCL 0.4 MG CAP.SR.24H PO SCH (21:18)
[2018-05-19] MEDS: ATORVASTATIN CALCIUM 40 MG TABLET PO SCH (21:18)
[2018-05-19] MEDS: ONDANSETRON 4 MG TAB.RAPDIS PO PRN (23:28)
[2018-05-19] MEDS ORDERED: HYDRALAZINE HCL 25 MG TABLET PO ONE (23:45)
[2018-05-19] MEDS ORDERED: HYDRALAZINE HCL INJ/PF 20 MG/1 ML SDV IV PRN (23:56)
[2018-05-20] MEDS: CEFAZOLIN 2 GM/D5W RTU 2 GM/50 ML RTUPB IV SCH (01:19)
[2018-05-20] MEDS: OXYCODONE-ACETAMINOPHEN 5-325 MG TABLET PO PRN ×2 (06:08→22:15)
[2018-05-20] MEDS: HYDRALAZINE HCL 50 MG TABLET PO SCH ×3 (06:08→22:15)
[2018-05-20 07:12] LABS: ANION GAP 14 (5-19); BLOOD UREA NITROGEN 33 mg/dL (7-20); C-REACTIVE PROTEIN 34.5 mg/L (<10.0); CALCIUM 9.4 mg/dL (8.4-10.2); CARBON DIOXIDE 25 mmol/L (22-30); CHLORIDE 100 mmol/L (98-107); GLUCOSE 190 mg/dL (75-110); SODIUM 139.4 mmol/L (137-145)
[2018-05-20 07:23] LABS: POTASSIUM 6.1 mmol/L (3.6-5.0)
[2018-05-20] MEDS ORDERED: SODIUM BICARBONATE 8.4% INJ 50 MEQ/50 ML DISP.SYRIN IV ONE (08:30)
[2018-05-20] MEDS ORDERED: SODIUM POLYSTYRENE SULFONATE 15 GM/60 ML PO ONE (08:30)
[2018-05-20] MEDS ORDERED: ALBUTEROL SULFATE 0.083% NEB 2.5 MG/3 ML AMPUL NEB ONE (08:30)
[2018-05-20] MEDS ORDERED: CALCIUM GLUCONATE 1000 MG/10 ML INJ IV ONE ×2 (08:30→09:03)
[2018-05-20] MEDS: FERROUS SULFATE 325 MG TABLET PO SCH ×2 (09:06→17:10)
[2018-05-20] MEDS ORDERED: CEFTRIAXONE SODIUM 2,000 MG in DEXTROSE 5%-WATER 100 ML IV SCH (10:00)
[2018-05-20] MEDS ORDERED: CEFTRIAXONE 2 GM/D5W RTU 2 GM/50 ML RTUPB IV SCH (10:00)
[2018-05-20] MEDS: MULTIVIT-STRESS FORMULA/ZINC TABLET PO SCH (10:59)
[2018-05-20] MEDS: FAMOTIDINE 20 MG TABLET PO SCH ×2 (10:59→22:27)
[2018-05-20] MEDS: AMLODIPINE BESYLATE 10 MG TABLET PO SCH (10:59)
[2018-05-20] MEDS: TRAZODONE HCL 50 MG TABLET PO SCH ×2 (11:00→22:27)
[2018-05-20] MEDS: DOCUSATE SODIUM 100 MG CAPSULE PO SCH (11:00)
[2018-05-20] MEDS: POLYETHYLENE GLYCOL 3350 POWDER 17 GM/1 PACKET PO SCH (11:01)
[2018-05-20] MEDS: NORMAL SALINE 10 ML SDV (SCHEDULED) IV SCH ×2 (11:01→22:28)
[2018-05-20] MEDS: ENOXAPARIN SODIUM INJ 40 MG/0.4 ML DISP.SYRIN SUBCUT SCH (11:01)
[2018-05-20] MEDS: INSULIN GLARGINE,HUM.REC.ANLOG 1,000 UNIT/10 ML UNIT SUBCUT SCH ×2 (11:07→17:09)
[2018-05-20 12:54] LABS: ANION GAP 12 (5-19); BLOOD UREA NITROGEN 34 mg/dL (7-20); CALCIUM 9.6 mg/dL (8.4-10.2); CARBON DIOXIDE 28 mmol/L (22-30); CHLORIDE 99 mmol/L (98-107); GLUCOSE 264 mg/dL (75-110); POTASSIUM 5.3 mmol/L (3.6-5.0); SODIUM 138.9 mmol/L (137-145)
--- NOTE | 2018-05-20 16:42 | PDOC PROGRESS REPORT ---
Subjective Progress Note for:: 05/20/18 Subjective:: Patient was seen in his room today. He was found to be hyperkalemic and did come to find out that he did not use his Kayexalate as prescribed yesterday. Orders written for kaliuresis and this was achieved with a repeat potassium of 5.3 down from 6.1. It appears patient was also enough to be discharged but at the end of the day it appears that patient is unable to go back to his hotel for IV antibiotics. 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 At this point it appears as though he choses to go to a rehab facility. We are going to pursue this but this really may be the only option unless patient has someone reliable to help him with his IV piggyback's Reason For Visit: POST OF INFECTION RIGHT FOOT Physical Exam Vital Signs: Temp Pulse Resp BP Pulse Ox 97.8 F 77 18 174/75 H 100 05/20/18 07:53 05/20/18 07:53 05/20/18 07:53 05/20/18 07:53 05/20/18 07:53 Intake & Output 05/19/18 05/20/18 05/21/18 06:59 06:59 06:59 Intake Total 774 1900 Output Total 1150 2000 Balance -376 -100 Weight 82.4 kg 82.4 kg General appearance: PRESENT: no acute distress, well-developed, well-nourished Head exam: PRESENT: atraumatic, normocephalic Eye exam: PRESENT: conjunctiva pink, EOMI, PERRLA. ABSENT: scleral icterus Ear exam: PRESENT: normal external ear exam Mouth exam: PRESENT: moist, tongue midline Neck exam: ABSENT: carotid bruit, JVD, lymphadenopathy, thyromegaly Respiratory exam: PRESENT: clear to auscultation manuel. ABSENT: rales, rhonchi, wheezes Cardiovascular exam: PRESENT: RRR. ABSENT: diastolic murmur, rubs, systolic murmur Pulses: PRESENT: normal dorsalis pedis pul Vascular exam: PRESENT: normal capillary refill GI/Abdominal exam: PRESENT: normal bowel sounds, soft. ABSENT: distended, guarding, mass, organolmegaly, rebound, tenderness Rectal exam: PRESENT: deferred Extremities exam: PRESENT: full ROM. ABSENT: calf tenderness, clubbing, pedal edema Neurological exam: PRESENT: alert, awake, oriented to person, oriented to place , oriented to time, oriented to situation, CN II-XII grossly intact. ABSENT: motor sensory deficit Psychiatric exam: PRESENT: appropriate affect, normal mood. ABSENT: homicidal ideation, suicidal ideation Skin exam: PRESENT: dry, intact, warm. ABSENT: cyanosis, rash Results Laboratory Results: 05/19/18 06:00 05/20/18 12:10 05/20/18 05/20/18 06:25 12:10 Sodium 139.4 138.9 Potassium 6.1 H* 5.3 H Chloride 100 99 Carbon Dioxide 25 28 Anion Gap 14 12 BUN 33 H 34 H Creatinine 1.91 H 1.95 H Est GFR ( Amer) 44 L 43 L Est GFR (Non-Af Amer) 36 L 35 L Glucose 190 H 264 H Calcium 9.4 9.6 C-Reactive Protein 34.5 H Impressions: Foot X-Ray 05/09/18 00:00 IMPRESSION: Interval amputation of right 4th metatarsal right 4th toe. The possibility of osteomyelitis of the 3rd cuneiform and tarsal cuboid cannot be excluded. Soft tissue deformity laterally. Soft tissue swelling dorsally. Abdomen/Pelvis CT 05/09/18 12:30 IMPRESSION: 1. Marked bladder distention. If clinically indicated, consider catheterization 2. Cholelithiasis. 3. Changes compatible with chronic discitis L3-4 and compression of the L4 vertebra again noted. At L4-5 there is evidence of posterior central disc protrusion extending laterally to the right. Central canal stenosis. At L5-S1, foramina stenosis bilaterally. 4. Constipation. Lumbar Spine MRI 05/10/18 00:00 IMPRESSION: 1. STABLE COMPRESSION DEFORMITY OF THE SUPERIOR ENDPLATE OF L4. PREVIOUSLY SEEN INFLAMMATORY CHANGES WITH MARROW EDEMA AT L3 AND L4 HAS RESOLVED. CURRENTLY NO SIGNIFICANT INFLAMMATION OR MARROW EDEMA. NO PARASPINAL OR EPIDURAL SOFT TISSUE CHANGES. 2. CHRONIC DEGENERATIVE CHANGES WITH STENOSIS DESCRIBED. SIMILAR TO THE PRIOR STUDY. Guidance Fluoroscopy 05/18/18 00:00 IMPRESSION: SUCCESSFUL PLACEMENT OF A 5 FR DUAL LUMEN 37 CM PICC IN THE LEFT BASILIC VEIN. Interventional Vascular Procedure 05/18/18 00:00 IMPRESSION: SUCCESSFUL PLACEMENT OF A 5 FR DUAL LUMEN 37 CM PICC IN THE LEFT BASILIC VEIN. PICC Line Insertion 05/18/18 00:00 IMPRESSION: SUCCESSFUL PLACEMENT OF A 5 FR DUAL LUMEN 37 CM PICC IN THE LEFT BASILIC VEIN. 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4 - alf (current) use of insulin; Z79.4 - middle or intermediate school principal (current) use of insulin; Z79.4 - alf (current) use of insulin; Z79.4 - middle or intermediate school principal (current ) use of insulin Is this a current diagnosis for this admission?: Yes (4) MSSA bacteremia Is this a current diagnosis for this admission?: Yes (5) Noncompliance Is this a current diagnosis for this admission?: Yes (6) Hyperkalemia Is this a current diagnosis for this admission?: Yes Plan: Improved (7) Acute renal failure Is this a current diagnosis for this admission?: Yes Plan: Cautious IVF hydration, improved GFR (8) Anemia Qualifiers: Anemia type: iron deficiency Is this a current diagnosis for this admission?: Yes Plan: Will continue to monitor and transfuse as needed - Time Time Spent with patient: 25-34 minutes Medications reviewed and adjusted accordingly: Yes Anticipated discharge: Acute Rehab Within: within 48 hours - Inpatient Certification Based on my medical assessment, after consideration of the patient's comorbidities, presenting symptoms, or acuity I expect that the services needed warrant INPATIENT care.: Yes Medical Necessity: Need Close Monitoring Due to Risk of Patient Decompensation, Need for IV Antibiotics
--- NOTE | 2018-05-20 18:24 | PDOC PROGRESS REPORT ---
Subjective Progress Note for:: 05/20/18 Subjective:: no pains Reason For Visit: POST OF INFECTION RIGHT FOOT Physical Exam Vital Signs: Temp Pulse Resp BP Pulse Ox 97.8 F 77 18 174/75 H 100 05/20/18 07:53 05/20/18 07:53 05/20/18 07:53 05/20/18 07:53 05/20/18 07:53 Intake & Output 05/19/18 05/20/18 05/21/18 06:59 06:59 06:59 Intake Total 774 1900 1182 Output Total 1150 2000 1350 Balance -376 -100 -168 Weight 82.4 kg 82.4 kg Exam: wound vac to [address] Results Laboratory Results: 05/19/18 06:00 05/20/18 12:10 05/20/18 05/20/18 06:25 12:10 Sodium 139.4 138.9 Potassium 6.1 H* 5.3 H Chloride 100 99 Carbon Dioxide 25 28 Anion Gap 14 12 BUN 33 H 34 H Creatinine 1.91 H 1.95 H Est GFR ( Amer) 44 L 43 L Est GFR (Non-Af Amer) 36 L 35 L Glucose 190 H 264 H Calcium 9.4 9.6 C-Reactive Protein 34.5 H Impressions: Foot X-Ray 05/09/18 00:00 IMPRESSION: Interval amputation of right 4th metatarsal right 4th toe. The possibility of osteomyelitis of the 3rd cuneiform and tarsal cuboid cannot be excluded. Soft tissue deformity laterally. Soft tissue swelling dorsally. Abdomen/Pelvis CT 05/09/18 12:30 IMPRESSION: 1. Marked bladder distention. If clinically indicated, consider catheterization 2. Cholelithiasis. 3. Changes compatible with chronic discitis L3-4 and compression of the L4 vertebra again noted. At L4-5 there is evidence of posterior central disc protrusion extending laterally to the right. Central canal stenosis. At L5-S1, foramina stenosis bilaterally. 4. Constipation. Lumbar Spine MRI 05/10/18 00:00 IMPRESSION: 1. STABLE COMPRESSION DEFORMITY OF THE SUPERIOR ENDPLATE OF L4. PREVIOUSLY SEEN INFLAMMATORY CHANGES WITH MARROW EDEMA AT L3 AND L4 HAS RESOLVED. CURRENTLY NO SIGNIFICANT INFLAMMATION OR MARROW EDEMA. NO PARASPINAL OR EPIDURAL SOFT TISSUE CHANGES. 2. CHRONIC DEGENERATIVE CHANGES WITH STENOSIS DESCRIBED. SIMILAR TO THE PRIOR STUDY. Guidance Fluoroscopy 05/18/18 00:00 IMPRESSION: SUCCESSFUL PLACEMENT OF A 5 FR DUAL LUMEN 37 CM PICC IN THE LEFT BASILIC VEIN. Interventional Vascular Procedure 05/18/18 00:00 IMPRESSION: SUCCESSFUL PLACEMENT OF A 5 FR DUAL LUMEN 37 CM PICC IN THE LEFT BASILIC VEIN. PICC Line Insertion 05/18/18 00:00 IMPRESSION: SUCCESSFUL PLACEMENT OF A 5 FR DUAL LUMEN 37 CM PICC IN THE LEFT BASILIC VEIN. Assessment & Plan - Time Time Spent with patient: 15-24 minutes - Plan Summary Plan Summary: OK to make arrangement for continued wound vac therapy at patient's dwelling which is a hotel right now. Further follow up at the wound care center. May d/c antibiotics on discharge
[2018-05-20] MEDS ORDERED: SODIUM POLYSTYRENE SULFONATE 15 GM/60 ML PO SCH (22:00)
[2018-05-20] MEDS: ATORVASTATIN CALCIUM 40 MG TABLET PO SCH (22:28)
[2018-05-20] MEDS: TAMSULOSIN HCL 0.4 MG CAP.SR.24H PO SCH (22:31)
[2018-05-21] MEDS: HYDRALAZINE HCL 50 MG TABLET PO SCH (05:45)
[2018-05-21 07:58] VITALS: BP 157/70
--- NOTE | 2018-05-21 11:47 | PDOC DISCHARGE SUMMARY ---
General - Admit/Disc Date/PCP Admission Date/Primary Care Provider: 05/07/18 16:53 Discharge Date: 05/21/18 - Discharge Diagnosis (1) Diabetic foot infection Is this a current diagnosis for this admission?: Yes (2) Osteomyelitis due to type 2 diabetes mellitus Is this a current diagnosis for this admission?: Yes (3) Diabetes mellitus Is this a current diagnosis for this admission?: Yes (4) MSSA bacteremia Is this a current diagnosis for this admission?: Yes (5) Noncompliance Is this a current diagnosis for this admission?: Yes (6) Hyperkalemia Is this a current diagnosis for this admission?: Yes (7) Acute renal failure Is this a current diagnosis for this admission?: Yes (8) Anemia Is this a current diagnosis for this admission?: Yes - Additional Information Resuscitation Status: Full Code Home Medications: No Home Medications 05/07/18 History of Present Illness History of Present Illness: LEEANNE WYLIE is a 57 year old male DAnoncompliant diabetic male who was recently hospitalized at [facility] from April 16 through 04/26/2018. He was previously in this institution for his initial fifth ray amputation from April 2017 through June 2017. He underwent fourth ray amputation on April 16. He also had osteomyelitis and received long-term antibiotic therapy. Surgery followed the patient for both admissions along with the hospitalist service. After discharge earlier this month the patient was referred to the wound care center. He states that he had been receiving some help with dressing changes at home. Unfortunately has not had dressing change for over 5 days. He has been walking with a postop shoe. Drainage is extremely foul-smelling and has leaked through his gauze wrap as well as his sock. Hospital Course Hospital Course: Patient had a prolonged hospital stay. He was receiving intravenous antibiotics and other treatment had been made for him to be discharged home on IV antibiotics for a period of 6 weeks due to concerns about osteomyelitis. Patient already had a PICC line in place unfortunately his social situation was for him to be discharged to his hotel which is his temporary residence. At the last minute he was concluded that due to patient poor vision he would not be able to hang up his IV antibiotics. Patient adamantly refuses to go to a rehab facility. We also gave him the option of coming to the infusion site but patient adamantly refuses. He then decides to leave without treatment being completed or arrangements being made. His PICC line was removed and patient decided to sign out AGAINST MEDICAL ADVICE or leave without completing treatment. Physical Exam Vital Signs: Temp Pulse Resp BP Pulse Ox 98.2 F 64 17 157/70 H 100 05/21/18 07:32 05/21/18 07:32 05/21/18 07:32 05/21/18 07:32 05/21/18 07:32 Intake & Output 05/20/18 05/21/18 05/22/18 06:59 06:59 06:59 Intake Total 1900 2308 Output Total 1999 2650 Balance -100 -342 Weight 82.4 kg 83.4 kg General appearance: PRESENT: no acute distress Head exam: PRESENT: atraumatic, normocephalic Neck exam: ABSENT: carotid bruit, JVD, lymphadenopathy, thyromegaly Respiratory exam: PRESENT: clear to auscultation manuel. ABSENT: rales, rhonchi, wheezes Cardiovascular exam: PRESENT: RRR. ABSENT: diastolic murmur, rubs, systolic murmur GI/Abdominal exam: PRESENT: normal bowel sounds, soft. ABSENT: distended, guarding, mass, organolmegaly, rebound, tenderness Rectal exam: PRESENT: deferred Extremities exam: PRESENT: other - R foot as per prior discussions Neurological exam: PRESENT: alert, awake, oriented to person, oriented to place , oriented to time, oriented to situation, CN II-XII grossly intact. ABSENT: motor sensory deficit Results Laboratory Results: 05/19/18 06:00 05/20/18 12:10 05/20/18 12:10 Sodium 138.9 Potassium 5.3 H Chloride 99 Carbon Dioxide 28 Anion Gap 12 BUN 34 H Creatinine 1.95 H Est GFR ( Amer) 43 L Est GFR (Non-Af Amer) 35 L Glucose 264 H Calcium 9.6 Impressions: Foot X-Ray 05/09/18 00:00 IMPRESSION: Interval amputation of right 4th metatarsal right 4th toe. The possibility of osteomyelitis of the 3rd cuneiform and tarsal cuboid cannot be excluded. Soft tissue deformity laterally. Soft tissue swelling dorsally. Abdomen/Pelvis CT 05/09/18 12:30 IMPRESSION: 1. Marked bladder distention. If clinically indicated, consider catheterization 2. Cholelithiasis. 3. Changes compatible with chronic discitis L3-4 and compression of the L4 vertebra again noted. At L4-5 there is evidence of posterior central disc protrusion extending laterally to the right. Central canal stenosis. At L5-S1, foramina stenosis bilaterally. 4. Constipation. Lumbar Spine MRI 05/10/18 00:00 IMPRESSION: 1. STABLE COMPRESSION DEFORMITY OF THE SUPERIOR ENDPLATE OF L4. PREVIOUSLY SEEN INFLAMMATORY CHANGES WITH MARROW EDEMA AT L3 AND L4 HAS RESOLVED. CURRENTLY NO SIGNIFICANT INFLAMMATION OR MARROW EDEMA. NO PARASPINAL OR EPIDURAL SOFT TISSUE CHANGES. 2. CHRONIC DEGENERATIVE CHANGES WITH STENOSIS DESCRIBED. SIMILAR TO THE PRIOR STUDY. Guidance Fluoroscopy 05/18/18 00:00 IMPRESSION: SUCCESSFUL PLACEMENT OF A 5 FR DUAL LUMEN 37 CM PICC IN THE LEFT BASILIC VEIN. Interventional Vascular Procedure 05/18/18 00:00 IMPRESSION: SUCCESSFUL PLACEMENT OF A 5 FR DUAL LUMEN 37 CM PICC IN THE LEFT BASILIC VEIN. PICC Line Insertion 05/18/18 00:00 IMPRESSION: SUCCESSFUL PLACEMENT OF A 5 FR DUAL LUMEN 37 CM PICC IN THE LEFT BASILIC VEIN. Qualifiers - * PATIENT BEING DISCHARGED WITH ANY OF THE FOLLOWING DIAGNOSIS: No
== END 2018-05-21 11:03 | disposition left against medical advice (07) | DRG 623 ==
LOC: ER 09:31 → EH 16:53 → 4N 18:36
PROVIDERS: ADMIT Hospitalist; ATTEND Hospitalist
PROC: 0HDMXZZ Extraction of Right Foot Skin, External Approach (ICD-10-PCS; 2018-05-07)
PROC: 0J9Q00Z Drainage of Right Foot Subcutaneous Tissue and Fascia with Drainage Device, Open Approach (ICD-10-PCS; 2018-05-10)
PROC: BH48ZZZ Ultrasonography of Lower Extremity (ICD-10-PCS; 2018-05-10)
PROC: 0HDMXZZ Extraction of Right Foot Skin, External Approach (ICD-10-PCS; 2018-05-10)
PROC: 0JBQ0ZZ Excision of Right Foot Subcutaneous Tissue and Fascia, Open Approach (ICD-10-PCS; principal; 2018-05-10 16:45)
PROC: 02HV33Z Insertion of Infusion Device into Superior Vena Cava, Percutaneous Approach (ICD-10-PCS; 2018-05-18)
DX: E11.628 Type 2 diabetes mellitus with other skin complications (principal); M86.8X7 Other osteomyelitis, ankle and foot; M46.26 Osteomyelitis of vertebra, lumbar region; L76.82 Other postprocedural complications of skin and subcutaneous tissue; L08.89 Other specified local infections of the skin and subcutaneous tissue; E11.69 Type 2 diabetes mellitus with other specified complication; E11.65 Type 2 diabetes mellitus with hyperglycemia; B95.61 Methicillin susceptible Staphylococcus aureus infection as the cause of diseases classified elsewhere; E11.621 Type 2 diabetes mellitus with foot ulcer; E87.5 Hyperkalemia; N17.9 Acute kidney failure, unspecified; E11.36 Type 2 diabetes mellitus with diabetic cataract; I10 Essential (primary) hypertension; D64.9 Anemia, unspecified; E78.00 Pure hypercholesterolemia, unspecified; J44.9 Chronic obstructive pulmonary disease, unspecified; K59.03 Drug induced constipation; N31.9 Neuromuscular dysfunction of bladder, unspecified; F41.8 Other specified anxiety disorders; F17.210 Nicotine dependence, cigarettes, uncomplicated; Z60.2 Problems related to living alone; Y83.5 Amputation of limb(s) as the cause of abnormal reaction of the patient, or of later complication, without mention of misadventure at the time of the procedure; Y92.009 Unspecified place in unspecified non-institutional (private) residence as the place of occurrence of the external cause; Z91.19 Patient's noncompliance with other medical treatment and regimen; Z89.421 Acquired absence of other right toe(s); Z79.4 Long term (current) use of insulin
CPT/HCPCS: 01480; 36415; 36569; 72148; 74176; 76937; 77001; 80048; 80053; 80202; 82565; 82607; 82728; 82746; 82947; 82962; 83036; 83540; 83550; 83605; 83690; 83735; 84100; 85025; 85027; 85045; 86140; 87040; 87070; 87075; 87077; 87186; 87205; 93306; 96365; 96375; 99285; A6266; C1769; J0610; J0690; J0696; J0713; J1642; J1650; J1815; J2250; J2405; J2704; J3010; J3370; J3480; J3490; J7030; J7060; S0119

== ENCOUNTER 2018-06-05 23:54 | Emergency (ER) | payer MEDICAID ==
[2018-06-06] MEDS ORDERED: MORPHINE SULFATE IR 15 MG TABLET PO ONE ×2 (00:06→01:37)
[2018-06-06] MEDS ORDERED: LIDOCAINE 5% (700 MG) TRANSDERMAL ADH..PATCH TP ONE (00:06)
[2018-06-06] MEDS ORDERED: ACETAMINOPHEN 325 MG TABLET PO ONE (00:06)
[2018-06-06] MEDS ORDERED: TRAMADOL HCL 50 MG TABLET PO ONE (00:10)
--- NOTE | 2018-06-06 00:10 | ER Document Report ---
ED General - General Chief Complaint: left shoulder pain Stated Complaint: LEFT SHOULDER PAIN Time Seen by Provider: 06/06/18 00:05 Notes: Patient is a 57-year-old male with a known history of diabetes, hypertension, chronic kidney disease, chronic right foot wound, known history of noncompliance including a recent discharge from the hospital under circumstances of it being AGAINST MEDICAL ADVICE who presents by EMS with 4 days of left shoulder pain. The patient does describe this as a severe, throbbing, constant pain over his left trapezius and into the left shoulder joint rating into the left upper extremity. States that the pain is worsened by any attempt at moving the shoulder. He has not tried anything for improvement of the pain. He is requesting Percocet for the pain. He denies any known trauma to the shoulder. He has not seen his general physician regarding today's concerns. The patient states that he is following with a primary care physician regarding his right lower extremity wound and is planning to get his medications filled tomorrow for his diabetes as well as all of his other chronic medical problems. He states that he is here exclusively for left shoulder pain. TRAVEL OUTSIDE OF THE [place] IN LAST 30 DAYS: No - Related Data Allergies/Adverse Reactions: metformin Allergy (Unknown, Verified 04/22/18 08:05) Past Medical History - General Information source: Patient - Social History Smoking Status: Never Smoker Frequency of alcohol use: None Drug Abuse: None Lives with: Homeless Family History: DM, Hypertension - Past Medical History Cardiac Medical History: Reports: Hx Hypercholesterolemia, Hx Hypertension Pulmonary Medical History: Reports: Hx COPD Endocrine Medical History: Reports: Hx Diabetes Mellitus Type 1, Hx Diabetes Mellitus Type 2 Renal/ Medical History: Reports: Hx Renal Insufficiency. 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 bone Review of Systems - Review of Systems Notes: Constitutional: Negative for fever. HENT: Negative for sore throat. Eyes: Negative for visual changes. Cardiovascular: Negative for chest pain. Respiratory: Negative for shortness of breath. Gastrointestinal: Negative for abdominal pain, vomiting or diarrhea. Genitourinary: Negative for dysuria. Musculoskeletal: Positive for left shoulder pain Skin: Positive for chronic right foot wound Neurological: Negative for headaches, weakness or numbness. 10 point ROS negative except as marked above and in HPI. Physical Exam - Vital signs Vitals: BP 150/82 H 06/06/18 00:05 Interpretation: Hypertensive Notes: PHYSICAL EXAMINATION: GENERAL: Well-appearing, well-nourished and in no acute distress. HEAD: Atraumatic, normocephalic. EYES: Pupils equal round and reactive to light, extraocular movements intact, sclera anicteric, conjunctiva are normal. ENT: nares patent, oropharynx clear without exudates. Moist mucous membranes. NECK: Normal range of motion, supple without lymphadenopathy LUNGS: Breath sounds clear to auscultation bilaterally and equal. No wheezes rales or rhonchi. HEART: Regular rate and rhythm without murmurs ABDOMEN: Soft, nontender, normoactive bowel sounds. No guarding, no rebound. No masses appreciated. EXTREMITIES: Pain on palpation of the left trapezius and left shoulder joint. Pain with abduction of the left shoulder. No apparent swelling, erythema or joint effusion. Exam examination otherwise globally unremarkable. No pitting or edema. No cyanosis. NEUROLOGICAL: No focal neurological deficits. Moves all extremities spontaneously and on command. PSYCH: Normal mood, normal affect. SKIN: Warm, Dry, normal turgor, there is approximately 1 x 1 cm chronic wound to the medial aspect of the right foot that does not appear grossly infected. No significant odor from the wound. No active drainage although the bandage overlying was saturated with drainage. Course - Re-evaluation Re-evalutation: 06/06/18 00:08 No evidence of a septic joint, gout flare, dislocation, or fracture on exam and imaging. No evidence of joint effusion on exam. No fever or constitutional symptoms. Vitals wnl. At this time, I do not see an indication for labs or further imaging. Patient is known to be noncompliant with all his medications, was noted to be hyperglycemic by EMS and notes that he has not taken his insulin since being discharged from the hospital. He does a chronic wound on his right lower extremity. His dressing was cut down the wound appears actually healing quite well over the medial aspect of the right midfoot. He denies any concerns regarding this wound. The wound was redressed. The patient did leave AGAINST MEDICAL ADVICE at the end of last month regarding this issue and states that he has been following him as an outpatient with wound management but has not yet been able to fill his prescriptions. Pain control provided in the emergency department. Of note the patient was very disgruntled that I did not provide Percocet which have informed him I do not utilize in my practice. At this time will discharge with return precautions and follow-up recommendations. Verbal discharge instructions given a the bedside and opportunity for questions given. Medication warnings reviewed. Patient is in agreement with this plan and has verbalized understanding of return precautions and the need for primary care follow-up in the next 24-72 hours. - Vital Signs Vital signs: Temp Pulse Resp BP Pulse Ox 98.5 F 87 18 146/63 H 99 06/06/18 00:09 06/06/18 00:09 06/06/18 00:09 06/06/18 00:09 06/06/18 00:09 - Diagnostic Test Radiology reviewed: Image reviewed, Reports reviewed Radiology results interpreted by me: 06/06/18 00:09 Left shoulder x-ray: No acute fracture or dislocation Discharge - Discharge Clinical Impression: Chronic wound of extremity Left shoulder pain Qualifiers: Chronicity: acute Qualified Code(s): M25.512 - Pain in left shoulder Uncontrolled type 2 diabetes mellitus Qualifiers: Glycemic state: with hyperglycemia Qualified Code(s): E11.65 - Type 2 diabetes mellitus with hyperglycemia Condition: Stable Disposition: HOME, SELF-CARE Additional Instructions: Your x-ray does not show any acute fracture today. You likely have a ligamentous strain. You should continue to take Tylenol 1000 mg every 6 hours as well as application of lidocaine to the area per bottle instructions. Continue to apply ice to the area is much your able. Please follow-up with your primary care physician if you do not have improving your symptoms in the next 1-2 weeks. Please return immediately if you develop weakness, numbness, spreading redness from the area, or any other symptoms that are concerning to you. Referrals: YASIR VILCHIS, VONDA-C [Primary Care Provider] - Follow up as needed
--- NOTE | 2018-06-06 01:19 | RADIOLOGY REPORT (SQ) ---
EXAM DESCRIPTION: XR SHOULDER 2 OR MORE VIEWS COMPLETED DATE/TME: 06/06/2018 00:06 CLINICAL HISTORY: 57 years, Male, pain, limited rom COMPARISON: None. FINDINGS: 3 views of the left shoulder. No acute fracture or dislocation. Osteopenia. No acute abnormalities of the left hemithorax identified. Mild osteophytic change of the glenohumeral joints and spurring of the acromioclavicular joint IMPRESSION: 1. No acute fracture or dislocation. 2. 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 copyright 2010 [employer]- All Rights Reserved
[2018-06-06] MEDS ORDERED: INSULIN REG, HUMAN 100 UNIT/ML 3 ML VIAL (PYX) SUBCUT ONE (01:54)
[2018-06-06 02:15] VITALS: BP 164/72
== END 2018-06-06 02:14 | disposition home or self-care (01) ==
LOC: ER 23:54
DX: M25.512 Pain in left shoulder (principal); I12.9 Hypertensive chronic kidney disease with stage 1 through stage 4 chronic kidney disease, or unspecified chronic kidney disease; E11.65 Type 2 diabetes mellitus with hyperglycemia; N18.9 Chronic kidney disease, unspecified
CPT/HCPCS: 99284; 82962; 73030; J3490 ×2; J1815

== ENCOUNTER 2018-06-07 21:50 | Inpatient (IN) | payer MEDICAID ==
[2018-06-07] MEDS ORDERED: LIDOCAINE 5% (700 MG) TRANSDERMAL ADH..PATCH TP ONE (22:18)
--- NOTE | 2018-06-07 22:24 | ER Document Report ---
ED General - General Stated Complaint: URINARY PROBLEM Time Seen by Provider: 06/07/18 21:58 TRAVEL OUTSIDE OF THE [place] IN LAST 30 DAYS: No - HPI Notes: Patient is a 57-year-old male that presents to the emergency department for chief complaint of urinary retention. Patient states that since the end of April he has been having increased difficulty urinating. He states when he is able to urinate it is a small amount. He feels a pressure in his lower abdomen like he has a large amount of urine that he needs to void. He is straining to void. He denies any hematuria but does report some dysuria. He denies any fever, chills, nausea, vomiting and diarrhea. He denies constipation. Patient also complaining of needing a dressing change on his chronic right foot wound. He states he sees outpatient wound management and has been paying somebody to come to the house to help him with dressing changes. Patient is also requesting pain medication for left shoulder pain. He states that he has had a ache in his left shoulder that is worse with movement for the last week. He has not taken any pain medication at home. Past Medical History: Diabetes, CKD Past Surgical History: Reviewed in chart Social History: Reviewed in chart Family History: Reviewed and noncontributory for presenting illness Allergies: Reviewed, see documented allergy list. REVIEW OF SYSTEMS: CONSTITUTIONAL : No fever No chills No diaphoresis No recent illness EENT: No vision changes No congestion No sore throat CARDIOVASCULAR: No chest pain No palpitations RESPIRATORY: No shortness of breath No cough No difficulty breathing GASTROINTESTINAL: No abdominal pain No nausea No vomiting No diarrhea GENITOURINARY: Urinary retention dysuria No hematuria No difficulty urinating MUSCULOSKELETAL: No back pain No leg pain Left shoulder pain SKIN: No rashes Right foot wound LYMPHATIC: No swollen, enlarged glands. NEUROLOGICAL: No lightheadedness No headache No weakness No paresthesias PSYCHIATRIC: No anxiety No depression PHYSICAL EXAMINATION: Vital signs reviewed, nursing noted reviewed. GENERAL: Well-appearing, well-nourished and in no acute distress. HEAD: Atraumatic, normocephalic. EYES: Eyes appear normal, extraocular movements intact, sclera anicteric, conjunctiva are normal. ENT: nares patent, oropharynx clear without exudates. Moist mucous membranes. NECK: Normal range of motion, supple without lymphadenopathy LUNGS: Breath sounds clear to auscultation bilaterally and equal. No wheezes rales or rhonchi. HEART: Regular rate and rhythm without murmurs ABDOMEN: Soft, nontender, normoactive bowel sounds. No rebound, guarding, or rigidity. No masses appreciated. EXTREMITIES: Nontender, good range of motion, no pitting or edema. NEUROLOGICAL: No focal neurological deficits. Moves all extremities spontaneously Motor and sensory grossly intact on exam. PSYCH: Normal mood, normal affect. SKIN: Warm, Dry, normal turgor. Medial right foot ulcerative wound with good granulation tissue, no drainage or bleeding, no surrounding erythema - Related Data Allergies/Adverse Reactions: metformin Allergy (Unknown, Verified 04/22/18 08:05) Past Medical History - Social History Smoking Status: Current Every Day Smoker Family History: DM, Hypertension - Past Medical History Cardiac Medical History: Reports: Hx Hypercholesterolemia, Hx Hypertension Pulmonary Medical History: Reports: Hx COPD Endocrine Medical History: Reports: Hx Diabetes Mellitus Type 1, Hx Diabetes Mellitus Type 2 Renal/ Medical History: Reports: Hx Renal Insufficiency. 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 bone Physical Exam - Vital signs Vitals: Temp Resp BP Pulse Ox 98.9 F 18 177/81 H 98 06/07/18 22:07 06/07/18 22:07 06/07/18 22:07 06/07/18 22:07 Course - Re-evaluation Re-evalutation: 06/07/18 22:23 Vitals reviewed. Nursing notes reviewed. Patient does not have Sirs criteria by vital signs. He did have a glucose of 461 reported by EMS prior to arrival. Patient has been noncompliant with home medications and does not currently have his insulin. I recommended lab work to evaluate him for renal failure since he is reporting decreased urination and difficulty urinating. Patient is refusing blood work. He understands his medical care and has capacity to make his own medical decisions. 06/08/18 00:12 Patient reevaluated and is now agreeing to receive blood work. He is hyperglycemic and will be given insulin and IV hydration. Urinalysis is positive for urinary tract infection and patient will be given Rocephin. Urine culture will be sent. His wound is well healing and does not appear infected, the wound was redressed. 06/08/18 03:39 Patient reevaluated. He is still hemodynamically stable. Lab work shows a leukocytosis of 31.8. Patient will be admitted to the hospital for his urinary tract infection and uncontrolled hyperglycemia. He is in agreement with this plan. Case discussed with Dr. Morton who accepted admission. Laboratory 06/07/18 06/08/18 06/08/18 23:20 01:16 01:16 WBC Cancelled RBC Cancelled Hgb Cancelled Hct Cancelled MCV Cancelled MCH Cancelled MCHC Cancelled RDW Cancelled Plt Count Cancelled Total Counted Seg Neutrophils % Cancelled Seg Neuts % (Manual) Lymphocytes % Cancelled Lymphocytes % (Manual) Atypical Lymphs % Monocytes % Cancelled Monocytes % (Manual) Eosinophils % Cancelled Eosinophils % (Manual) Basophils % Cancelled Basophils % (Manual) Absolute Neutrophils Cancelled Abs Neuts (Manual) Absolute Lymphocytes Cancelled Abs Lymphs (Manual) Absolute Monocytes Cancelled Abs Monocytes (Manual) Absolute Eosinophils Cancelled Absolute Eos (Manual) Absolute Basophils Cancelled Abs Basophils (Manual) Toxic Granulation Toxic Vacuolation Platelet Estimate Cancelled Platelet Comment Hypochromasia Poikilocytosis Anisocytosis Target Cells Tear Drop Cells Helmet Cells Schistocytes VBG pH VBG pCO2 VBG HCO3 VBG Base Excess Sodium Cancelled Potassium Cancelled Chloride Cancelled Carbon Dioxide Cancelled Anion Gap Cancelled BUN Cancelled Creatinine Cancelled Est GFR ( Amer) Cancelled Est GFR (Non-Af Amer) Cancelled Glucose Cancelled POC Glucose Calcium Cancelled Urine Color YELLOW Urine Appearance CLOUDY Urine pH 5.0 Ur Specific [place] 1.017 Urine Protein 100 H Urine Glucose (UA) >=500 H Urine Ketones 20 H Urine Blood MODERATE H Urine Nitrite NEGATIVE Urine Bilirubin NEGATIVE Urine Urobilinogen NEGATIVE Ur Leukocyte Esterase LARGE H Urine WBC (Auto) 124 Urine RBC (Auto) 96 Urine WBC Clumps FEW Urine Mucus (Auto) RARE Urine Yeast (Budding) PRESENT Urine Ascorbic Acid NEGATIVE Slides for Path Review Cancelled 06/08/18 06/08/18 06/08/18 01:16 02:30 02:30 WBC 31.8 H* RBC 3.77 L Hgb 9.3 L Hct 28.6 L MCV 76 L D MCH 24.6 L MCHC 32.5 RDW 18.4 H Plt Count 543 H Total Counted 100 Seg Neutrophils % Not Reportable Seg Neuts % (Manual) 84 H Lymphocytes % Not Reportable Lymphocytes % (Manual) 8 L Atypical Lymphs % 3 Monocytes % Not Reportable Monocytes % (Manual) 5 Eosinophils % Not Reportable Eosinophils % (Manual) 0 Basophils % Not Reportable Basophils % (Manual) 0 Absolute Neutrophils Not Reportable Abs Neuts (Manual) 26.7 H Absolute Lymphocytes Not Reportable Abs Lymphs (Manual) 3.5 Absolute Monocytes Not Reportable Abs Monocytes (Manual) 1.6 H Absolute Eosinophils Not Reportable Absolute Eos (Manual) 0.0 Absolute Basophils Not Reportable Abs Basophils (Manual) 0.0 Toxic Granulation 1+ Toxic Vacuolation PRESENT Platelet Estimate Platelet Comment ADEQUATE Hypochromasia 1+ Poikilocytosis 2+ Anisocytosis 2+ Target Cells 1+ Tear Drop Cells 1+ Helmet Cells SLIGHT Schistocytes 1+ VBG pH 7.47 H VBG pCO2 33.5 L VBG HCO3 23.7 VBG Base Excess 0.2 Sodium 135.4 L Potassium 3.3 L Chloride 100 Carbon Dioxide 26 Anion Gap 9 BUN 30 H Creatinine 1.02 Est GFR ( Amer) > 60 Est GFR (Non-Af Amer) > 60 Glucose 281 H POC Glucose Calcium 8.4 Urine Color Urine Appearance Urine pH Ur Specific [place] Urine Protein Urine Glucose (UA) Urine Ketones Urine Blood Urine Nitrite Urine Bilirubin Urine Urobilinogen Ur Leukocyte Esterase Urine WBC (Auto) Urine RBC (Auto) Urine WBC Clumps Urine Mucus (Auto) Urine Yeast (Budding) Urine Ascorbic Acid Slides for Path Review 06/08/18 02:43 WBC RBC Hgb Hct MCV MCH MCHC RDW Plt Count Total Counted Seg Neutrophils % Seg Neuts % (Manual) Lymphocytes % Lymphocytes % (Manual) Atypical Lymphs % Monocytes % Monocytes % (Manual) Eosinophils % Eosinophils % (Manual) Basophils % Basophils % (Manual) Absolute Neutrophils Abs Neuts (Manual) Absolute Lymphocytes Abs Lymphs (Manual) Absolute Monocytes Abs Monocytes (Manual) Absolute Eosinophils Absolute Eos (Manual) Absolute Basophils Abs Basophils (Manual) Toxic Granulation Toxic Vacuolation Platelet Estimate Platelet Comment Hypochromasia Poikilocytosis Anisocytosis Target Cells Tear Drop Cells Helmet Cells Schistocytes VBG pH VBG pCO2 VBG HCO3 VBG Base Excess Sodium Potassium Chloride Carbon Dioxide Anion Gap BUN Creatinine Est GFR ( Amer) Est GFR (Non-Af Amer) Glucose POC Glucose 256 H Calcium Urine Color Urine Appearance Urine pH Ur Specific [place] Urine Protein Urine Glucose (UA) Urine Ketones Urine Blood Urine Nitrite Urine Bilirubin Urine Urobilinogen Ur Leukocyte Esterase Urine WBC (Auto) Urine RBC (Auto) Urine WBC Clumps Urine Mucus (Auto) Urine Yeast (Budding) Urine Ascorbic Acid Slides for Path Review - Vital Signs Vital signs: Temp Pulse Resp BP Pulse Ox 98.9 F 18 177/81 H 98 06/07/18 22:07 06/08/18 02:00 06/07/18 22:07 06/08/18 02:00 - Laboratory Result Diagrams: 06/08/18 02:30 06/08/18 02:30 Laboratory results interpreted by me: 06/07/18 06/08/18 06/08/18 23:20 01:16 02:30 WBC RBC Hgb Hct MCV MCH RDW Plt Count Seg Neuts % (Manual) Lymphocytes % (Manual) Abs Neuts (Manual) Abs Monocytes (Manual) VBG pH 7.47 H VBG pCO2 33.5 L Sodium 135.4 L Potassium 3.3 L BUN 30 H Glucose 281 H POC Glucose Urine Protein 100 H Urine Glucose (UA) >=500 H Urine Ketones 20 H Urine Blood MODERATE H Ur Leukocyte Esterase LARGE H 06/08/18 06/08/18 02:30 02:43 WBC 31.8 H* RBC 3.77 L Hgb 9.3 L Hct 28.6 L MCV 76 L D MCH 24.6 L RDW 18.4 H Plt Count 543 H Seg Neuts % (Manual) 84 H Lymphocytes % (Manual) 8 L Abs Neuts (Manual) 26.7 H Abs Monocytes (Manual) 1.6 H VBG pH VBG pCO2 Sodium Potassium BUN Glucose POC Glucose 256 H Urine Protein Urine Glucose (UA) Urine Ketones Urine Blood Ur Leukocyte Esterase Discharge - Discharge Clinical Impression: Unspecified open wound, right foot, subsequent encounter UTI (urinary tract infection) Qualifiers: Urinary tract infection type: site unspecified Hematuria presence: with hematuria Qualified Code(s): N39.0 - Urinary tract infection, site not specified ; R31.9 - Hematuria, unspecified; R31.9 - Hematuria, unspecified Left shoulder pain Qualifiers: Chronicity: acute Qualified Code(s): M25.512 - Pain in left shoulder Leukocytosis Qualifiers: Leukocytosis type: other Qualified Code(s): D72.828 - Other elevated white blood cell count Condition: Stable Disposition: ADMITTED INPATIENT Admitting Provider: Hospitalist Additional Instructions: Please return to the emergency department if you have any worsening, or concern of your symptoms. Please return to the emergency department if you develop chest pain, difficulty breathing, severe abdominal pain, or ongoing vomiting. Please follow-up with your primary care physician in 2-3 days and any other recommended physicians. If prescribed, take all medications as directed. If you have any questions or concerns do not hesitate to return the emergency department for evaluation. [] Referrals: YASIR VILCHIS, CHANDNI [Primary Care Provider] - Follow up as needed
[2018-06-07 23:45] LABS: APPEARANCE,URINE CLOUDY; BILIRUBIN,URINE NEGATIVE (NEGATIVE); COLOR,URINE YELLOW; GLUCOSE, URINE >=500 mg/dL (NEGATIVE); KETONES,URINE 20 mg/dL (NEGATIVE); LEUKOCYTE ESTERASE,URINE LARGE (NEGATIVE); NITRITE,URINE NEGATIVE (NEGATIVE); PROTEIN,URINE 100 mg/dL (NEGATIVE); URINE SPECIFIC GRAVITY 1.017; UROBILINOGEN,URINE NEGATIVE mg/dL (<2.0)
[2018-06-08] MEDS ORDERED: CEPHALEXIN 500 MG CAPSULE PO ONE (00:03)
[2018-06-08] MEDS ORDERED: CEFTRIAXONE INJ 1000 MG VIAL IV ONE (00:11)
[2018-06-08] MEDS ORDERED: NORMAL SALINE 1000 ML 1,000 ML IV ONE (00:11)
[2018-06-08] MEDS ORDERED: INSULIN REG, HUMAN 100 UNIT/ML 3 ML VIAL (PYX) SUBCUT ONE (00:12)
[2018-06-08 01:36] LABS: VENOUS BLOOD BASE EXCESS 0.2 mmol/L; VENOUS BLOOD HCO3 23.7 mmol/L (20-32); VENOUS BLOOD PCO2 33.5 mmHg (35-63); VENOUS BLOOD PH 7.47 (7.30-7.42)
[2018-06-08 02:41] LABS: HEMATOCRIT 28.6 % (37.9-51.0); HEMOGLOBIN 9.3 g/dL (13.5-17.0); MEAN CORPUSCULAR HEMOGLOBIN 24.6 pg (27.0-33.4); MEAN CORPUSCULAR HGB CONC 32.5 g/dL (32.0-36.0); PLATELET COUNT 543 10^3/uL (150-450); RED BLOOD COUNT 3.77 10^6/uL (4.35-5.55); RED CELL DISTRIBUTION WIDTH 18.4 % (11.5-14.0)
[2018-06-08 02:59] LABS: ANION GAP 9 (5-19); BLOOD UREA NITROGEN 30 mg/dL (7-20); CALCIUM 8.4 mg/dL (8.4-10.2); CARBON DIOXIDE 26 mmol/L (22-30); CHLORIDE 100 mmol/L (98-107); GLUCOSE 281 mg/dL (75-110); POTASSIUM 3.3 mmol/L (3.6-5.0); SODIUM 135.4 mmol/L (137-145)
[2018-06-08 03:02] LABS: ABSOLUTE LYMPHOCYTES# (MANUAL) 3.5 10^3/uL (0.5-4.7); ABSOLUTE MONOCYTES # (MANUAL) 1.6 10^3/uL (0.1-1.4); ABSOLUTE NEUTROPHILS# (MANUAL) 26.7 10^3/uL (1.7-8.2); BASOPHILS % (MANUAL) 0 % (0-2); EOSINOPHILS % (MANUAL) 0 % (0-6); LYMPHOCYTES % (MANUAL) 8 % (13-45); MONOCYTES % (MANUAL) 5 % (3-13); SEGMENTED NEUTROPHILS % (MAN) 84 % (42-78); TOTAL CELLS COUNTED 100
[2018-06-08 03:06] LABS: ANISOCYTOSIS 2+; HELMET CELLS SLIGHT; HYPOCHROMASIA 1+; POIKILOCYTOSIS 2+; SCHISTOCYTES 1+; TARGET CELLS 1+; TEAR DROP CELLS 1+; TOXIC GRANULATION 1+; TOXIC VACUOLATION PRESENT
[2018-06-08 03:07] LABS: MEAN CORPUSCULAR VOLUME 76 fl (80-97); PLATELET COMMENT ADEQUATE
[2018-06-08 03:22] LABS: WHITE BLOOD COUNT 31.8 10^3/uL (4.0-10.5)
[2018-06-08] MEDS ORDERED: ONDANSETRON 4 MG TAB.RAPDIS PO PRN (04:14)
[2018-06-08] MEDS ORDERED: MAGNESIUM HYDROXIDE SUSP 30 ML UDCUP PO PRN (04:14)
[2018-06-08] MEDS ORDERED: MORPHINE SULFATE 10 MG/ML INJ IV PRN (04:23)
[2018-06-08] MEDS ORDERED: ACETAMINOPHEN 650 MG SUPP.RECT PR PRN (04:23)
[2018-06-08] MEDS ORDERED: GLUCAGON,HUMAN RECOMB 1 MG INJ IM PRN (04:24)
[2018-06-08] MEDS ORDERED: DEXTROSE 50%-WATER 25 GM/50 ML DISP.SYRIN IV PRN ×2 (04:24)
[2018-06-08] MEDS ORDERED: DEXTROSE 40% GEL 15 GM TUBE PO PRN ×2 (04:24)
[2018-06-08] MEDS ORDERED: NICOTINE 21 MG/24 HR PATCH.TD24 TD PRN (05:21)
--- NOTE | 2018-06-08 05:21 | PDOC H&P ---
History of Present Illness Admission Date/PCP: 06/08/18 04:18 CHANDNI DIAS Patient complains of: Urinary retention History of Present Illness: LEEANNE WYLIE is a 57 year old male who presented to the emergency room with a 1 day history of urinary retention. He allows that he had been unable to pass urine except for very small amounts for the last day prior to his presentation. He felt moderate to severe, nonradiating lower abdominal discomfort/pressure but had no pain, nausea, vomiting or diarrhea. The small amounts of urine he has been able to pass have been a dark yellow with no evidence of blood. He also complains of chronic pain in his left shoulder which has been aching for more than a week, his right foot dressing needs to be changed and he is been having hiccups all day and would like to have something for them. In the emergency room he had a Lopez catheter placed which drained approximately 250 mL of urine immediately and has continued to be functional. Additionally his right foot dressing was changed and lab work was performed. A CBC showed a significantly elevated white blood count at 31,000. His urine showed a significant pyuria and he was subsequently treated with Rocephin for presumed urinary tract infection. He was subsequently admitted to hospitalist service for continued treatment of his urinary tract infection/pyuria pending culture results. Past Medical History Cardiac Medical History: Reports: Hyperlipidema, Hypertension Pulmonary Medical History: Reports: Chronic Obstructive Pulmonary Disease (COPD) Denies: Tuberculosis EENT Medical History: Reports: None Neurological Medical History: Denies: Hemorrhagic CVA, Ischemic CVA Endocrine Medical History: Reports: Diabetes Mellitus Type 2 Denies: Diabetes Mellitus Type 1, Hyperthyroidism Renal/ Medical History: Denies: End Stage Renal Disease, Nephrolithiasis Malignancy Medical History: Reports: None GI Medical History: Denies: Cirrhosis, Hepatitis Skin Medical History: Reports: Other - Foot ulcers and other skin complications of diabetes mellitus Denies: Eczema, Psoriasis Psychiatric Medical History: Reports: Depression, Substance Abuse, Tobacco Dependency Denies: Alcohol Dependency Traumatic Medical History: Reports: None Hematology: Denies: Anemia, Bleeding Tendencies Infectious Medical History: Reports: Methicillin-Resistant Staph Aureus Past Surgical History Past Surgical History: Reports: Orthopedic Surgery - fifth right toe amputated, Other - Umbilical hernia repair, amputation right 5th digit with 5t metatarsal bone Social History Information Source: Patient Smoking Status: Current Every Day Smoker Frequency of Alcohol Use: None Hx Recreational Drug Use: Yes Drugs: Marijuana - Monthly Hx Prescription Drug Abuse: No - Advance Directive Resuscitation Status: Full Code Surrogate healthcare decision maker:: Catherine Harsha Family History Family History: DM, Hypertension Parental Family History Reviewed: Yes Children Family History Reviewed: No Sibling(s) Family History Reviewed.: Yes Medication/Allergy Home Medications: Lidocaine [Lidoderm 5% (700 mg) Transdermal Patch] 1 patch TP DAILY #30 adh..patch 06/06/18 Tramadol HCl [Ultram] 50 mg PO Q6HP PRN #8 tablet 06/06/18 Allergies/Adverse Reactions: metformin Allergy (Unknown, Verified 04/22/18 08:05) Review of Systems Constitutional: ABSENT: chills, fever(s) Eyes: ABSENT: visual disturbances, other - Ocular pain Ears: ABSENT: hearing changes, other - Ear pain Nose, Mouth, and Throat: ABSENT: mouth pain, sore throat Cardiovascular: ABSENT: chest pain, palpitations Respiratory: ABSENT: cough, dyspnea Gastrointestinal: ABSENT: abdominal pain, constipation, diarrhea, nausea, vomiting Genitourinary: PRESENT: as per HPI, difficulty urinating. ABSENT: dysuria, hematuria Musculoskeletal: PRESENT: deformity - Status post amputation of right fifth toe , other - Painful left shoulder. ABSENT: back pain Integumentary: PRESENT: pruritus - Rash on legs, rash - On legs Neurological: ABSENT: confusion, convulsions, memory loss, syncope Psychiatric: PRESENT: depression. ABSENT: anxiety Endocrine: ABSENT: cold intolerance, heat intolerance Hematologic/Lymphatic: ABSENT: easy bleeding, easy bruising Physical Exam Vital Signs: Temp Pulse Resp BP Pulse Ox 98.9 F 18 177/81 H 98 06/07/18 22:07 06/08/18 02:00 06/07/18 22:07 06/08/18 02:00 General appearance: PRESENT: no acute distress, cooperative Head exam: PRESENT: atraumatic, normocephalic Eye exam: PRESENT: EOMI. ABSENT: scleral icterus Ear exam: PRESENT: normal external ear exam. ABSENT: bleeding, drainage Mouth exam: PRESENT: dry mucosa, neck supple Neck exam: ABSENT: JVD, thyromegaly, tracheal deviation Respiratory exam: PRESENT: clear to auscultation manuel, decreased breath sounds - Mildly decreased breath sounds throughout all penn, symmetrical, unlabored Cardiovascular exam: PRESENT: RRR. ABSENT: clicks, gallop, rubs Pulses: PRESENT: normal radial pulses. ABSENT: normal dorsalis pedis pul - Decreased dorsalis pedis pulses bilaterally Vascular exam: PRESENT: normal capillary refill. ABSENT: pallor GI/Abdominal exam: PRESENT: normal bowel sounds, soft, other - Lpoez catheter noted in urethral meatus Rectal exam: PRESENT: deferred Gentrourinary exam: PRESENT: indwelling catheter. ABSENT: scrotal swelling, testicular tenderness Extremities exam: PRESENT: other - Right foot wrapped in fresh dressing not removed at the time of my exam. ABSENT: joint swelling Musculoskeletal exam: PRESENT: other - Status post amputation of the right fifth toe. ABSENT: dislocation Neurological exam: PRESENT: alert, oriented to person, oriented to place, oriented to time, oriented to situation Psychiatric exam: PRESENT: appropriate affect, normal mood Skin exam: PRESENT: rash - Chronic eczematous changes noted in the bilateral lower extremities with scaling and evidence of mild excoriation.. ABSENT: jaundice, urticaria Assessment & Plan - Diagnosis (1) Acute urinary retention Is this a current diagnosis for this admission?: Yes Plan: Patient has had a Lopez catheter placed which should resolve his acute urinary retention. The underlying cause of his urinary retention may well be a urinary tract infection which will be treated with IV antibiotics pending urine cultures and sensitivity results. (2) Intractable hiccups Is this a current diagnosis for this admission?: Yes Plan: Patient will be treated with Thorazine 25 mg IM or IV every 6 hours as needed hiccups (3) Diabetes mellitus Qualifiers: Diabetes mellitus type: type 2 Diabetes mellitus longterm insulin use: with longterm use Diabetes mellitus complication status: with skin complications Diabetes mellitus complication detail: with foot ulcer Qualified Code(s): E11.621 - Type 2 diabetes mellitus with foot ulcer; L97.509 - Non-pressure chronic ulcer of other part of unspecified foot with unspecified severity; L97.509 - Non-pressure chronic ulcer of other part of unspecified foot with unspecified severity; L97.509 - Non-pressure chronic ulcer of other part of unspecified foot with unspecified severity; L97.509 - Non-pressure chronic ulcer of other part of unspecified foot with unspecified severity; Z79.4 - long term care social worker (current) use of insulin; Z79.4 - alf (current) use of insulin; Z79.4 - long term care social worker (current) use of insulin; Z79.4 - long term care social worker (current ) use of insulin Is this a current diagnosis for this admission?: Yes Plan: Patient's blood sugars and poor control and it is noted that he uses no medications at home for this. He will be given sliding scale insulin before meals and at bedtime initially with further therapy as indicated over the course of his care. (4) UTI (urinary tract infection) Qualifiers: Urinary tract infection type: site unspecified Hematuria presence: with hematuria Qualified Code(s): N39.0 - Urinary tract infection, site not specified; R31.9 - Hematuria, unspecified; R31.9 - Hematuria, unspecified Is this a current diagnosis for this admission?: Yes Plan: Patient was initially started on intravenous Rocephin pending urine culture and sensitivity results. (5) Tobacco abuse Is this a current diagnosis for this admission?: Yes Plan: Patient is advised to quit smoking. Smoking cessation counseling is provided and a nicotine replacement patch will be available if patient desires. (6) Left shoulder pain Qualifiers: Chronicity: unspecified Qualified Code(s): M25.512 - Pain in left shoulder Is this a current diagnosis for this admission?: Yes Plan: Patient complains of what seems to be chronic left shoulder pain although he says it has been going on for a week or more. He will be given morphine sulfate intravenously on a sliding scale basis as needed for pain control. (7) Unspecified open wound, right foot, subsequent encounter Is this a current diagnosis for this admission?: Yes Plan: Patient will continue to have dressing changes twice daily during his hospital course with further intervention and treatment to be contemplated as needed. (8) Leukocytosis Qualifiers: Leukocytosis type: unspecified Qualified Code(s): D72.829 - Elevated white blood cell count, unspecified Is this a current diagnosis for this admission?: Yes Plan: The patient's CBC will be followed on a regular basis as well the basic metabolic profile and magnesium levels. IV antibiotics are being provided to treat a suspected urinary tract infection. - Time Time Spent: 30 to 50 Minutes Critical Time spent with patient: Less than 15 minutes Smoking Cessation Education: 3 to 10 minutes Medications reviewed and adjusted accordingly: Yes - Inpatient Certification Based on my medical assessment, after consideration of the patient's comorbidities, presenting symptoms, or acuity I expect that the services needed warrant INPATIENT care.: Yes I certify that my determination is in accordance with my understanding of Medicare's requirements for reasonable and necessary INPATIENT services [42 CFR 412.3e].: Yes Medical Necessity: Significant Comorbidiites Make Outpatient Treatment Too Risky , Need for Pain Control, Need for IV Antibiotics
[2018-06-08] MEDS: HEPARIN SOD (PORCINE) 5,000 UNIT/ML 1 ML SYRINGE SUBCUT SCH ×3 (06:13→23:10)
[2018-06-08] MEDS: CHLORPROMAZINE HCL INJ 25 MG/1 ML AMPULE IV PRN (06:13)
[2018-06-08] MEDS: INSULIN LISPRO 100 UNIT/ML 3 ML VIAL SUBCUT PRN ×3 (07:30→23:12)
[2018-06-08] MEDS: MORPHINE SULFATE 10 MG/ML INJ IV PRN ×4 (07:31→23:11)
[2018-06-08] MEDS: ONDANSETRON HCL INJ/PF 4 MG/2 ML SDV IV PRN ×3 (07:40→23:12)
[2018-06-08] MEDS: TRAMADOL HCL 50 MG TABLET PO PRN ×2 (08:36→15:29)
[2018-06-08] MEDS ORDERED: CEFTRIAXONE INJ 1000 MG VIAL IV SCH (10:00)
[2018-06-08] MEDS: LIDOCAINE 5% (700 MG) TRANSDERMAL ADH..PATCH TP SCH (10:02)
[2018-06-08] MEDS: FAMOTIDINE 20 MG TABLET PO SCH ×2 (10:02→22:57)
[2018-06-08] MEDS: DOCUSATE SODIUM 100 MG CAPSULE PO SCH ×2 (10:02→17:07)
[2018-06-08] MEDS: MINERAL OIL/PETROLATUM,WHITE CREAM 114 GM TP SCH (10:54)
[2018-06-08] MEDS: HYDRALAZINE HCL INJ/PF 20 MG/1 ML SDV IV PRN (11:37)
[2018-06-08 12:56] LABS: PATH REVIEW PATHOLOGIST REVIEWED
[2018-06-08] MEDS ORDERED: VANCOMYCIN HCL 0 MG in DEXTROSE 5%-WATER 250 ML IV NR (19:45)
[2018-06-08] MEDS ORDERED: VANCOMYCIN HCL 1,500 MG in DEXTROSE 5%-WATER 250 ML IV ONE (21:00)
[2018-06-08] MEDS ORDERED: CEFTRIAXONE 1 GM/D5W RTU 1 GM/50 ML RTUPB IV SCH (22:00)
[2018-06-08] MEDS: CEFTRIAXONE SODIUM 1,000 MG in DEXTROSE 5%-WATER 50 ML IV SCH (22:57)
[2018-06-09] MEDS ORDERED: CHLORPROMAZINE HCL INJ 25 MG/1 ML AMPULE ONE (00:21)
[2018-06-09] MEDS: MORPHINE SULFATE 10 MG/ML INJ IV PRN ×6 (01:22→23:13)
[2018-06-09 06:44] LABS: HEMATOCRIT 26.7 % (37.9-51.0); HEMOGLOBIN 8.5 g/dL (13.5-17.0); MEAN CORPUSCULAR HEMOGLOBIN 24.4 pg (27.0-33.4); MEAN CORPUSCULAR HGB CONC 31.9 g/dL (32.0-36.0); MEAN CORPUSCULAR VOLUME 77 fl (80-97); PLATELET COUNT 469 10^3/uL (150-450); RED BLOOD COUNT 3.48 10^6/uL (4.35-5.55); RED CELL DISTRIBUTION WIDTH 18.2 % (11.5-14.0); WHITE BLOOD COUNT 23.9 10^3/uL (4.0-10.5)
[2018-06-09] MEDS: HEPARIN SOD (PORCINE) 5,000 UNIT/ML 1 ML SYRINGE SUBCUT SCH ×3 (06:59→23:13)
[2018-06-09 07:06] LABS: ANION GAP 12 (5-19)
[2018-06-09 07:16] LABS: BLOOD UREA NITROGEN 35 mg/dL (7-20); CALCIUM 8.1 mg/dL (8.4-10.2); CARBON DIOXIDE 25 mmol/L (22-30); CHLORIDE 97 mmol/L (98-107); GLUCOSE 263 mg/dL (75-110); POTASSIUM 3.4 mmol/L (3.6-5.0)
[2018-06-09 08:01] LABS: ABSOLUTE LYMPHOCYTES# (MANUAL) 1.4 10^3/uL (0.5-4.7); ABSOLUTE MONOCYTES # (MANUAL) 1.9 10^3/uL (0.1-1.4); ABSOLUTE NEUTROPHILS# (MANUAL) 20.6 10^3/uL (1.7-8.2); ANISOCYTOSIS 2+; BASOPHILS % (MANUAL) 0 % (0-2); EOSINOPHILS % (MANUAL) 0 % (0-6); LYMPHOCYTES % (MANUAL) 5 % (13-45); MONOCYTES % (MANUAL) 8 % (3-13); POIKILOCYTOSIS SLIGHT; SEGMENTED NEUTROPHILS % (MAN) 86 % (42-78); TARGET CELLS SLIGHT; TOTAL CELLS COUNTED 100
[2018-06-09 08:02] LABS: HYPOCHROMASIA 2+; PLATELET COMMENT INCREASED; TOXIC GRANULATION 2+
[2018-06-09] MEDS: INSULIN LISPRO 100 UNIT/ML 3 ML VIAL SUBCUT PRN ×3 (08:44→23:14)
[2018-06-09] MEDS: VANCOMYCIN HCL 1,000 MG in DEXTROSE 5%-WATER 250 ML IV SCH ×2 (08:45→20:11)
[2018-06-09] MEDS: ONDANSETRON HCL INJ/PF 4 MG/2 ML SDV IV PRN ×2 (10:16→23:14)
[2018-06-09] MEDS: DOCUSATE SODIUM 100 MG CAPSULE PO SCH ×2 (10:17→17:08)
[2018-06-09] MEDS: FAMOTIDINE 20 MG TABLET PO SCH ×2 (10:17→22:52)
[2018-06-09] MEDS ORDERED: MAGNESIUM CITRATE 296 ML BOTTLE PO PRN (13:41)
[2018-06-09] MEDS: POLYETHYLENE GLYCOL 3350 POWDER 17 GM/1 PACKET PO SCH (15:07)
[2018-06-09] MEDS: LIDOCAINE 5% (700 MG) TRANSDERMAL ADH..PATCH TP SCH (15:08)
[2018-06-09] MEDS: MINERAL OIL/PETROLATUM,WHITE CREAM 114 GM TP SCH (18:29)
--- NOTE | 2018-06-09 22:35 | PDOC PROGRESS REPORT ---
Subjective Progress Note for:: 06/09/18 Subjective:: Patient returns once again for complications from his right foot ulcer. He now has gram-positive cocci bacteremia. He also complains of constipation. Reason For Visit: LEUKOCYTOSIS Physical Exam Vital Signs: Temp Pulse Resp BP Pulse Ox 98.8 F 83 19 106/74 92 06/09/18 19:33 06/09/18 19:33 06/09/18 19:33 06/09/18 03:00 06/09/18 19:33 Intake & Output 06/08/18 06/09/18 06/10/18 06:59 06:59 06:59 Intake Total 1000 650 570 Output Total 2250 400 Balance 1000 -1600 170 Weight 69.4 kg General appearance: PRESENT: cooperative, other - Somnolent Respiratory exam: PRESENT: clear to auscultation manuel, symmetrical, unlabored. ABSENT: rales, rhonchi, wheezes Cardiovascular exam: PRESENT: RRR, +S1, +S2 GI/Abdominal exam: PRESENT: normal bowel sounds, soft. ABSENT: tenderness Extremities exam: PRESENT: other - Dressing on right foot Neurological exam: PRESENT: other - Slightly somnolent today Psychiatric exam: PRESENT: flat affect Skin exam: PRESENT: other - Dressing on right foot Results Laboratory Results: 06/09/18 04:15 06/09/18 04:15 06/09/18 06/09/18 04:15 04:15 WBC 23.9 H RBC 3.48 L Hgb 8.5 L Hct 26.7 L MCV 77 L MCH 24.4 L MCHC 31.9 L RDW 18.2 H Plt Count 469 H Seg Neutrophils % Not Reportable Lymphocytes % Not Reportable Monocytes % Not Reportable Eosinophils % Not Reportable Basophils % Not Reportable Absolute Neutrophils Not Reportable Absolute Lymphocytes Not Reportable Absolute Monocytes Not Reportable Absolute Eosinophils Not Reportable Absolute Basophils Not Reportable Sodium 134.0 L Potassium 3.4 L Chloride 97 L Carbon Dioxide 25 Anion Gap 12 BUN 35 H Creatinine 1.09 Est GFR ( Amer) > 60 Est GFR (Non-Af Amer) > 60 Glucose 263 H Calcium 8.1 L Magnesium 2.4 H 06/07/18 23:20 Lopez Catheter Urine Culture - Final C.albicans/C.dubliniensis Assessment & Plan - Diagnosis (1) Bacteremia Is this a current diagnosis for this admission?: Yes Plan: Blood culture bottles revealed gram-positive cocci in clusters. Await final identification and sensitivities to change antibiotic therapy. 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 The patient shows a consistent pattern of noncompliance. We discussed a surgical or podiatry consult. I will have a discussion with the patient tomorrow. My opinion the best next step would be below-knee amputation. If this is undertaken his recurrent infections will likely resolve. - Time Time Spent with patient: 15-24 minutes
[2018-06-09] MEDS: CEFTRIAXONE SODIUM 1,000 MG in DEXTROSE 5%-WATER 50 ML IV SCH (23:12)
[2018-06-09] MEDS: CHLORPROMAZINE HCL INJ 25 MG/1 ML AMPULE IV PRN (23:22)
[2018-06-10] MEDS ORDERED: NALOXONE HCL INJ/PF 0.4 MG/1 ML SDV ONE (02:48)
[2018-06-10] MEDS: ACETAMINOPHEN 325 MG TABLET PO PRN (02:58)
[2018-06-10] MEDS ORDERED: NALOXONE HCL INJ/PF 0.4 MG/1 ML SDV IV ONE (03:00)
[2018-06-10] MEDS: HEPARIN SOD (PORCINE) 5,000 UNIT/ML 1 ML SYRINGE SUBCUT SCH ×3 (05:01→23:07)
[2018-06-10] MEDS: MINERAL OIL/PETROLATUM,WHITE CREAM 114 GM TP SCH (09:20)
[2018-06-10] MEDS: VANCOMYCIN HCL 1,000 MG in DEXTROSE 5%-WATER 250 ML IV SCH (09:24)
[2018-06-10] MEDS: POLYETHYLENE GLYCOL 3350 POWDER 17 GM/1 PACKET PO SCH (09:24)
[2018-06-10] MEDS: FAMOTIDINE 20 MG TABLET PO SCH ×2 (09:24→23:08)
[2018-06-10] MEDS: DOCUSATE SODIUM 100 MG CAPSULE PO SCH ×2 (09:24→17:37)
[2018-06-10 09:28] LABS: VANCOMYCIN,TROUGH 19.5 ug/mL (5.0-20.0)
--- NOTE | 2018-06-10 10:48 | PDOC PROGRESS REPORT ---
Subjective Progress Note for:: 06/10/18 Subjective:: Patient more alert today. Still a bit lethargic. Reason For Visit: LEUKOCYTOSIS Physical Exam Vital Signs: Temp Pulse Resp BP Pulse Ox 97.9 F 76 18 126/57 H 100 06/10/18 07:49 06/10/18 07:49 06/10/18 07:49 06/10/18 03:00 06/10/18 07:49 Intake & Output 06/09/18 06/10/18 06/11/18 06:59 06:59 06:59 Intake Total 650 970 Output Total 2250 825 Balance -1600 145 Weight 69.4 kg 70.9 kg General appearance: PRESENT: no acute distress, cooperative, well-developed Respiratory exam: PRESENT: clear to auscultation manuel, symmetrical, unlabored. ABSENT: crackles, prolonged expiratory phas, rales, wheezes Cardiovascular exam: PRESENT: RRR, +S1, +S2 GI/Abdominal exam: PRESENT: normal bowel sounds, soft. ABSENT: tenderness Extremities exam: PRESENT: other - Large dressing right foot Neurological exam: PRESENT: awake, oriented to person, oriented to place, oriented to situation, CN II-XII grossly intact Psychiatric exam: PRESENT: flat affect Results Laboratory Results: 06/09/18 04:15 06/09/18 04:15 06/07/18 23:20 Lopez Catheter Urine Culture - Final C.albicans/C.dubliniensis Assessment & Plan - Diagnosis (1) Bacteremia Is this a current diagnosis for this admission?: Yes Plan: Continue ceftriaxone and vancomycin. Once I have the final results on the blood cultures I can narrow the spectrum of the antibiotics. Unfortunately because of the chronicity of his foot ulcer and lack of healing the patient has recurrent bacteremia. 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 The patient has been struggling with this ulcer for almost a year. From purely medical standpoint below-knee amputation of the leg would be the best treatment option for the patient. At this time he does not want to even consider amputation surgery. This is unfortunate because in my opinion this wound is not going to heal. (3) Candiduria Is this a current diagnosis for this admission?: Yes Plan: The patient has been on antibiotics intermittently for many months. This could be a clinically significant Isidra cystitis. We will monitor the urine for another day or 2 and if it does not clear then I will add fluconazole. (4) Uncontrolled type 2 diabetes mellitus Qualifiers: Glycemic state: with hyperglycemia Qualified Code(s): E11.65 - Type 2 diabetes mellitus with hyperglycemia Is this a current diagnosis for this admission?: Yes Plan: I will initiate a trial of 70/30 insulin. I will start at 40 units twice a day. - Time Time Spent with patient: 15-24 minutes Medications reviewed and adjusted accordingly: Yes
[2018-06-10 10:58] LABS: HEMATOCRIT 25.1 % (37.9-51.0); HEMOGLOBIN 8.2 g/dL (13.5-17.0); MEAN CORPUSCULAR HEMOGLOBIN 24.9 pg (27.0-33.4); MEAN CORPUSCULAR HGB CONC 32.6 g/dL (32.0-36.0); MEAN CORPUSCULAR VOLUME 76 fl (80-97); PLATELET COUNT 464 10^3/uL (150-450); RED BLOOD COUNT 3.29 10^6/uL (4.35-5.55); RED CELL DISTRIBUTION WIDTH 18.7 % (11.5-14.0); WHITE BLOOD COUNT 24.7 10^3/uL (4.0-10.5)
[2018-06-10 11:11] LABS: ANION GAP 11 (5-19); BLOOD UREA NITROGEN 39 mg/dL (7-20); CARBON DIOXIDE 24 mmol/L (22-30); CHLORIDE 96 mmol/L (98-107); GLUCOSE 299 mg/dL (75-110); POTASSIUM 3.3 mmol/L (3.6-5.0); SODIUM 131.4 mmol/L (137-145)
[2018-06-10] MEDS: MORPHINE SULFATE 10 MG/ML INJ IV PRN ×3 (11:32→23:07)
[2018-06-10] MEDS: NORMAL SALINE 1000 ML 1,000 ML IV PRN ×2 (11:32→15:51)
[2018-06-10] MEDS: LIDOCAINE 5% (700 MG) TRANSDERMAL ADH..PATCH TP SCH (11:38)
[2018-06-10 11:41] LABS: C-REACTIVE PROTEIN 396.5 mg/L (<10.0)
[2018-06-10] MEDS: INSULIN LISPRO 100 UNIT/ML 3 ML VIAL SUBCUT PRN ×2 (12:41→17:43)
[2018-06-10] MEDS: HUM INSULIN NPH/REG INSULIN HM 100 UNIT/1 ML 3 ML SUBCUT SCH (17:43)
[2018-06-10] MEDS: CEFTRIAXONE SODIUM 1,000 MG in DEXTROSE 5%-WATER 50 ML IV SCH (23:06)
[2018-06-11] MEDS: VANCOMYCIN HCL 750 MG in DEXTROSE 5%-WATER 250 ML IV SCH ×2 (01:01→11:25)
[2018-06-11] MEDS: MORPHINE SULFATE 10 MG/ML INJ IV PRN ×2 (05:23→16:41)
[2018-06-11] MEDS: HEPARIN SOD (PORCINE) 5,000 UNIT/ML 1 ML SYRINGE SUBCUT SCH ×3 (05:24→22:01)
[2018-06-11] MEDS: CHLORPROMAZINE HCL INJ 25 MG/1 ML AMPULE IV PRN (05:25)
[2018-06-11] MEDS: HUM INSULIN NPH/REG INSULIN HM 100 UNIT/1 ML 3 ML SUBCUT SCH ×2 (08:52→15:58)
[2018-06-11] MEDS: LIDOCAINE 5% (700 MG) TRANSDERMAL ADH..PATCH TP SCH (08:53)
[2018-06-11] MEDS: INSULIN LISPRO 100 UNIT/ML 3 ML VIAL SUBCUT PRN ×4 (08:54→21:59)
[2018-06-11] MEDS: MINERAL OIL/PETROLATUM,WHITE CREAM 114 GM TP SCH (09:06)
[2018-06-11] MEDS: POLYETHYLENE GLYCOL 3350 POWDER 17 GM/1 PACKET PO SCH (09:06)
[2018-06-11] MEDS: DOCUSATE SODIUM 100 MG CAPSULE PO SCH ×2 (10:59→17:38)
[2018-06-11] MEDS: FAMOTIDINE 20 MG TABLET PO SCH ×2 (10:59→22:00)
[2018-06-11] MEDS ORDERED: CHLORPROMAZINE HCL INJ 25 MG/1 ML AMPULE IV PRN (16:00)
[2018-06-11] MEDS ORDERED: LISINOPRIL 5 MG TABLET PO ONE (16:51)
[2018-06-11] MEDS: NORMAL SALINE 1000 ML 1,000 ML IV PRN (17:52)
[2018-06-11] MEDS ORDERED: BISACODYL 10 MG SUPP.RECT PR PRN (18:25)
--- NOTE | 2018-06-11 18:28 | PDOC PROGRESS REPORT ---
Subjective Progress Note for:: 06/11/18 Subjective:: The patient still feels quite poorly. He is very thirsty, and pain and worried about his foul smelling urine. Reason For Visit: LEUKOCYTOSIS Physical Exam Vital Signs: Temp Pulse Resp BP Pulse Ox 99.0 F 82 12 143/59 H 94 06/11/18 11:28 06/11/18 14:00 06/11/18 11:28 06/11/18 11:28 06/11/18 11:28 Intake & Output 06/10/18 06/11/18 06/12/18 06:59 06:59 06:59 Intake Total 970 3718 1150 Output Total 825 2075 850 Balance 145 1643 300 Weight 70.9 kg 75.5 kg General appearance: PRESENT: cooperative, mild distress, well-developed Head exam: PRESENT: atraumatic, normocephalic Neck exam: ABSENT: carotid bruit, JVD, lymphadenopathy Respiratory exam: PRESENT: clear to auscultation manuel, symmetrical, unlabored. ABSENT: accessory muscle use, rales, rhonchi, wheezes Cardiovascular exam: PRESENT: RRR, +S1, +S2 GI/Abdominal exam: PRESENT: normal bowel sounds, soft. ABSENT: distended, tenderness Extremities exam: PRESENT: other - Large dressing right foot. ABSENT: calf tenderness, pedal edema Musculoskeletal exam: ABSENT: ambulatory Neurological exam: PRESENT: alert, awake, oriented to person, oriented to place, oriented to time, oriented to situation, CN II-XII grossly intact Psychiatric exam: PRESENT: flat affect Results Laboratory Results: 06/10/18 08:49 06/10/18 08:49 Assessment & Plan - Diagnosis (1) Bacteremia Is this a current diagnosis for this admission?: Yes Plan: Final culture results revealed methicillin sensitive staph aureus. Antibiotics narrowed to Ancef 2 g IV every 8 hours. 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 Still with pain. I tried to discuss amputation, which would be best for the patient, and he did not care to have that discussion. (3) Candiduria Is this a current diagnosis for this admission?: Yes Plan: With the patient on antibiotics he is susceptible and his urine is foul-smelling and very cloudy. I have initiated fluconazole therapy. (4) Uncontrolled type 2 diabetes mellitus Qualifiers: Glycemic state: with hyperglycemia Qualified Code(s): E11.65 - Type 2 diabetes mellitus with hyperglycemia Is this a current diagnosis for this admission?: Yes Plan: Still with high Accu-Cheks. I increased the 70/30 insulin 8 units twice daily. (5) Left shoulder pain Qualifiers: Chronicity: unspecified Qualified Code(s): M25.512 - Pain in left shoulder Is this a current diagnosis for this admission?: Yes Plan: We are going to trial Naprosyn scheduled twice daily to see if this helps. Consider physical therapy. (6) HTN (hypertension) Qualifiers: Hypertension type: essential hypertension Qualified Code(s): I10 - Essential (primary) hypertension Is this a current diagnosis for this admission?: Yes Plan: The patient's blood pressures have been higher than I would like. I have starte d lisinopril 5 mg daily. This will also help with prophylaxis for kidney disease from his diabetes. - Time Time Spent with patient: 25-34 minutes Medications reviewed and adjusted accordingly: Yes
[2018-06-11] MEDS: TRAZODONE HCL 50 MG TABLET PO SCH (21:59)
[2018-06-11] MEDS: MORPHINE SULFATE SR 15 MG TABLET PO SCH (22:00)
[2018-06-11] MEDS: CEFAZOLIN SODIUM 2 GM in DEXTROSE 5%-WATER 100 ML IV SCH (22:04)
[2018-06-12] MEDS: CEFAZOLIN SODIUM 2 GM in DEXTROSE 5%-WATER 100 ML IV SCH ×3 (06:29→22:29)
[2018-06-12] MEDS: HEPARIN SOD (PORCINE) 5,000 UNIT/ML 1 ML SYRINGE SUBCUT SCH ×3 (06:29→22:31)
[2018-06-12] MEDS: NORMAL SALINE 1000 ML 1,000 ML IV PRN ×2 (08:42→15:19)
[2018-06-12] MEDS: NAPROXEN 375 MG TABLET PO SCH ×2 (08:42→18:00)
[2018-06-12] MEDS: MORPHINE SULFATE 10 MG/ML INJ IV PRN ×4 (08:43→18:03)
[2018-06-12] MEDS: HUM INSULIN NPH/REG INSULIN HM 100 UNIT/1 ML 3 ML SUBCUT SCH (08:43)
[2018-06-12] MEDS: INSULIN LISPRO 100 UNIT/ML 3 ML VIAL SUBCUT PRN ×4 (08:44→22:31)
[2018-06-12] MEDS: LIDOCAINE 5% (700 MG) TRANSDERMAL ADH..PATCH TP SCH (09:33)
[2018-06-12] MEDS: MINERAL OIL/PETROLATUM,WHITE CREAM 114 GM TP SCH (09:34)
[2018-06-12] MEDS: FLUCONAZOLE 200 MG/NS RTU 200 MG/100 ML RTUPB IV SCH (09:34)
[2018-06-12] MEDS: FAMOTIDINE 20 MG TABLET PO SCH ×2 (09:34→22:30)
[2018-06-12] MEDS: LISINOPRIL 10 MG TABLET PO SCH (09:34)
[2018-06-12] MEDS: MORPHINE SULFATE SR 15 MG TABLET PO SCH ×2 (09:34→22:30)
[2018-06-12] MEDS: DOCUSATE SODIUM 100 MG CAPSULE PO SCH ×2 (09:34→18:00)
[2018-06-12] MEDS: POLYETHYLENE GLYCOL 3350 POWDER 17 GM/1 PACKET PO SCH (09:35)
[2018-06-12] MEDS: ONDANSETRON HCL INJ/PF 4 MG/2 ML SDV IV PRN (15:18)
--- NOTE | 2018-06-12 17:38 | PDOC PROGRESS REPORT ---
Subjective Progress Note for:: 06/12/18 Subjective:: The patient feels quite poorly again today. He is somewhat nauseated. I certainly believe it is related to his constipation. Reason For Visit: LEUKOCYTOSIS Physical Exam Vital Signs: Temp Pulse Resp BP Pulse Ox 97.4 F 55 L 18 121/65 92 06/12/18 15:50 06/12/18 15:50 06/12/18 15:50 06/12/18 15:50 06/12/18 15:50 Intake & Output 06/11/18 06/12/18 06/13/18 06:59 06:59 06:59 Intake Total 3718 3306 1358 Output Total 2075 1950 Balance 1643 1356 1358 Weight 75.5 kg 76.2 kg General appearance: PRESENT: cooperative - But feels poorly, mild distress Mouth exam: PRESENT: dry mucosa Respiratory exam: PRESENT: clear to auscultation manuel, symmetrical, unlabored. ABSENT: rales, rhonchi, wheezes Cardiovascular exam: PRESENT: RRR, +S1, +S2 GI/Abdominal exam: PRESENT: distended, hypoactive bowel sounds, soft Neurological exam: PRESENT: awake - But lethargic, oriented to person, oriented to place, oriented to situation, CN II-XII grossly intact Results Laboratory Results: 06/10/18 08:49 06/10/18 08:49 Assessment & Plan - Diagnosis (1) Bacteremia Is this a current diagnosis for this admission?: Yes Plan: Methicillin susceptible staph aureus. Now on Ancef. 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 Unfortunately the foot is to the point where amputation is the most appropriate medical therapy. Unfortunately the patient does not want to entertain this. (3) Candiduria Is this a current diagnosis for this admission?: Yes Plan: Continue fluconazole (4) Uncontrolled type 2 diabetes mellitus Qualifiers: Glycemic state: with hyperglycemia Qualified Code(s): E11.65 - Type 2 diabetes mellitus with hyperglycemia Is this a current diagnosis for this admission?: Yes Plan: Still not achieving good control. I will increase the 70/30 to 10 units twice a day (5) Left shoulder pain Qualifiers: Chronicity: unspecified Qualified Code(s): M25.512 - Pain in left shoulder Is this a current diagnosis for this admission?: Yes Plan: Continue current trial of NSAIDs (6) HTN (hypertension) Qualifiers: Hypertension type: essential hypertension Qualified Code(s): I10 - Essential (primary) hypertension Is this a current diagnosis for this admission?: Yes Plan: Continue to adjust medications based on blood pressure readings (7) Constipation Qualifiers: Constipation type: drug induced constipation Qualified Code(s): K59.03 - Drug induced constipation Is this a current diagnosis for this admission?: Yes Plan: The patient has not had a bowel movement for multiple days. I am going to start an extremely aggressive regimen. I will obtain an abdominal film tomorrow to assess how much stool is present. - Time Time Spent with patient: 15-24 minutes Medications reviewed and adjusted accordingly: Yes
[2018-06-12] MEDS ORDERED: MAGNESIUM CITRATE 296 ML BOTTLE PO ONE (18:15)
[2018-06-12] MEDS: LACTULOSE SYRUP 20 GM/30 ML UDCUP PO SCH (22:30)
[2018-06-12] MEDS: TRAZODONE HCL 50 MG TABLET PO SCH (22:30)
[2018-06-13 05:52] LABS: ANION GAP 10 (5-19); BLOOD UREA NITROGEN 31 mg/dL (7-20); CARBON DIOXIDE 25 mmol/L (22-30); CHLORIDE 103 mmol/L (98-107); GLUCOSE 218 mg/dL (75-110); POTASSIUM 3.3 mmol/L (3.6-5.0); SODIUM 137.5 mmol/L (137-145)
[2018-06-13 05:54] LABS: MEAN CORPUSCULAR HEMOGLOBIN 24.3 pg (27.0-33.4); MEAN CORPUSCULAR HGB CONC 31.2 g/dL (32.0-36.0); MEAN CORPUSCULAR VOLUME 78 fl (80-97); PLATELET COUNT 389 10^3/uL (150-450); RED BLOOD COUNT 3.21 10^6/uL (4.35-5.55)
[2018-06-13 06:05] LABS: HEMOGLOBIN 7.8 g/dL (13.5-17.0)
[2018-06-13] MEDS: CEFAZOLIN SODIUM 2 GM in DEXTROSE 5%-WATER 100 ML IV SCH ×3 (06:48→21:20)
[2018-06-13] MEDS: LACTULOSE SYRUP 20 GM/30 ML UDCUP PO SCH ×3 (06:49→21:20)
[2018-06-13] MEDS: HEPARIN SOD (PORCINE) 5,000 UNIT/ML 1 ML SYRINGE SUBCUT SCH ×3 (06:49→21:20)
[2018-06-13] MEDS ORDERED: HUM INSULIN NPH/REG INSULIN HM 100 UNIT/1 ML 3 ML SUBCUT SCH (08:00)
[2018-06-13] MEDS: ONDANSETRON HCL INJ/PF 4 MG/2 ML SDV IV PRN (08:32)
[2018-06-13] MEDS: NAPROXEN 375 MG TABLET PO SCH ×2 (08:33→17:40)
[2018-06-13] MEDS: INSULIN LISPRO 100 UNIT/ML 3 ML VIAL SUBCUT PRN ×3 (08:34→17:41)
[2018-06-13] MEDS: MORPHINE SULFATE 10 MG/ML INJ IV PRN (08:34)
--- NOTE | 2018-06-13 08:42 | RADIOLOGY REPORT (SQ) ---
EXAM DESCRIPTION: KUB/ABDOMEN (SINGLE VIEW) COMPLETED DATE/TIME: 06/13/2018 8:25 am REASON FOR STUDY: obstipation COMPARISON: None. NUMBER OF VIEWS: One view. TECHNIQUE: Supine radiographic image of the abdomen acquired. LIMITATIONS: None. FINDINGS: BOWEL GAS PATTERN: Normal bowel gas pattern. No dilated loops. CONSTIPATION: marked CALCIFICATIONS: No suspicious calcifications. SOFT TISSUES: No gross mass or suggestion of organomegaly. HARDWARE: Rectal tube BONES: No acute fracture. No worrisome bone lesions. OTHER: No other significant finding. IMPRESSION: NO RADIOGRAPHIC EVIDENCE FOR ACUTE ABDOMINAL DISEASE. Marked constipation. TECHNICAL DOCUMENTATION: JOB ID: [id number] [employer]- All Rights Reserved Reading location - IP/workstation name: [email or web address]
[2018-06-13] MEDS: LISINOPRIL 10 MG TABLET PO SCH (09:46)
[2018-06-13] MEDS: FAMOTIDINE 20 MG TABLET PO SCH ×2 (09:46→21:21)
[2018-06-13] MEDS: MORPHINE SULFATE SR 15 MG TABLET PO SCH ×2 (09:46→21:20)
[2018-06-13] MEDS: DOCUSATE SODIUM 100 MG CAPSULE PO SCH ×2 (09:46→17:40)
[2018-06-13] MEDS: POLYETHYLENE GLYCOL 3350 POWDER 17 GM/1 PACKET PO SCH ×2 (09:47→09:50)
[2018-06-13] MEDS: LIDOCAINE 5% (700 MG) TRANSDERMAL ADH..PATCH TP SCH (09:47)
[2018-06-13] MEDS: MAGNESIUM CITRATE 296 ML BOTTLE PO SCH (09:47)
[2018-06-13] MEDS: MINERAL OIL/PETROLATUM,WHITE CREAM 114 GM TP SCH (09:47)
[2018-06-13] MEDS: FLUCONAZOLE 200 MG/NS RTU 200 MG/100 ML RTUPB IV SCH (09:59)
[2018-06-13] MEDS: HUM INSULIN NPH/REG INSULIN HM 100 UNIT/1 ML 3 ML SUBCUT SCH ×2 (12:48→17:41)
[2018-06-13] MEDS ORDERED: POTASSI CL 20 MEQ/NS 1L 1,000 ML IV PRN (15:14)
--- NOTE | 2018-06-13 15:29 | PDOC PROGRESS REPORT ---
Subjective Progress Note for:: 06/13/18 Subjective:: Patient has still not had a bowel movement. Reason For Visit: LEUKOCYTOSIS Physical Exam Vital Signs: Temp Pulse Resp BP Pulse Ox 97.4 F 64 16 162/74 H 100 06/13/18 11:59 06/13/18 11:59 06/13/18 11:59 06/13/18 11:59 06/13/18 11:59 Intake & Output 06/12/18 06/13/18 06/14/18 06:59 06:59 06:59 Intake Total 3306 1658 1200 Output Total 1950 760 Balance 7592 496 6938 Weight 76.2 kg 76.7 kg General appearance: PRESENT: cooperative, mild distress, well-developed Eye exam: PRESENT: conjunctiva pale. ABSENT: scleral icterus Ear exam: PRESENT: normal external ear exam Teeth exam: PRESENT: poor dentation Respiratory exam: PRESENT: clear to auscultation manuel, symmetrical, unlabored. ABSENT: prolonged expiratory phas, rales, rhonchi, wheezes Cardiovascular exam: PRESENT: RRR, +S1, +S2 GI/Abdominal exam: PRESENT: distended, hypoactive bowel sounds, soft, other - Tympanitic Extremities exam: PRESENT: other - Bandage on right foot Neurological exam: PRESENT: alert, awake, oriented to person, oriented to place, oriented to time, oriented to situation, CN II-XII grossly intact Psychiatric exam: PRESENT: agitated - Frustrated with his complications Results Laboratory Results: 06/13/18 04:11 06/13/18 04:11 06/13/18 06/13/18 04:11 04:11 WBC 16.0 H RBC 3.21 L Hgb 7.8 L Hct 25.0 L MCV 78 L MCH 24.3 L MCHC 31.2 L RDW 19.0 H Plt Count 389 Sodium 137.5 Potassium 3.3 L Chloride 103 Carbon Dioxide 25 Anion Gap 10 BUN 31 H Creatinine 1.32 H Est GFR ( Amer) > 60 Est GFR (Non-Af Amer) 56 L Glucose 218 H Calcium 8.0 L Impressions: KUB X-Ray 06/13/18 06:00 IMPRESSION: NO RADIOGRAPHIC EVIDENCE FOR ACUTE ABDOMINAL DISEASE. Marked constipation. Assessment & Plan - Diagnosis (1) Bacteremia Is this a current diagnosis for this admission?: Yes Plan: Methicillin sensitive staph aureus. Continue Ancef. 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 I tried to make him understand that amputation would be the best option for him at this point. He could then he will more quickly and obtain a prosthesis and get on with his life. He has spent most of the last year in the hospital. He still feels that he could get better if he had more support. He states that currently he gets no support from family. (3) Candiduria Is this a current diagnosis for this admission?: Yes Plan: Continue fluconazole as ordered (4) Uncontrolled type 2 diabetes mellitus Qualifiers: Glycemic state: with hyperglycemia Qualified Code(s): E11.65 - Type 2 diabetes mellitus with hyperglycemia Is this a current diagnosis for this admission?: Yes Plan: Glucose is still above 200. I will increase the 70/30 again. Hopefully once he moves his bowels he will begin eating again as well. His dose will now be 14 units twice daily. (5) Left shoulder pain Qualifiers: Chronicity: unspecified Qualified Code(s): M25.512 - Pain in left shoulder Is this a current diagnosis for this admission?: Yes Plan: Continue short trial of naproxen. Need to monitor renal function and hypertension. (6) HTN (hypertension) Qualifiers: Hypertension type: essential hypertension Qualified Code(s): I10 - Essential (primary) hypertension Is this a current diagnosis for this admission?: Yes Plan: I am going to leave his medications unchanged at this point. His blood pressure is likely affected by his abdominal discomfort. Reassess after he is relieved of constipation. (7) Constipation Qualifiers: Constipation type: drug induced constipation Qualified Code(s): K59.03 - Drug induced constipation Is this a current diagnosis for this admission?: Yes Plan: I strongly encourage the patient to drink the unsuccessful I have ordered a fleets enema if needed. - Time Time Spent with patient: 15-24 minutes Medications reviewed and adjusted accordingly: Yes - Plan Summary Plan Summary: Once again I had a long discussion with the patient. He looks for other reasons why his foot is not getting better. He will state that he has no ability to offload and no place to live. I again pointed out that this is all the more reason to get a more definitive procedure. He still is not willing to consider amputation.
[2018-06-13] MEDS ORDERED: LACTULOSE SYRUP 20 GM/30 ML UDCUP PO ONE (16:48)
[2018-06-13] MEDS: TRAZODONE HCL 50 MG TABLET PO SCH (21:20)
[2018-06-14 05:21] LABS: HEMATOCRIT 23.8 % (37.9-51.0); MEAN CORPUSCULAR HGB CONC 31.7 g/dL (32.0-36.0); MEAN CORPUSCULAR VOLUME 76 fl (80-97); PLATELET COUNT 427 10^3/uL (150-450); RED BLOOD COUNT 3.13 10^6/uL (4.35-5.55); RED CELL DISTRIBUTION WIDTH 19.3 % (11.5-14.0); WHITE BLOOD COUNT 13.4 10^3/uL (4.0-10.5)
[2018-06-14 05:29] LABS: HEMOGLOBIN 7.5 g/dL (13.5-17.0)
[2018-06-14 05:35] LABS: BLOOD UREA NITROGEN 29 mg/dL (7-20); GLUCOSE 143 mg/dL (75-110)
[2018-06-14] MEDS: HEPARIN SOD (PORCINE) 5,000 UNIT/ML 1 ML SYRINGE SUBCUT SCH ×2 (05:41→15:36)
[2018-06-14] MEDS: CEFAZOLIN SODIUM 2 GM in DEXTROSE 5%-WATER 100 ML IV SCH ×3 (05:41→22:12)
[2018-06-14] MEDS: LACTULOSE SYRUP 20 GM/30 ML UDCUP PO SCH ×3 (05:41→22:13)
[2018-06-14 06:06] LABS: CARBON DIOXIDE 29 mmol/L (22-30); CHLORIDE 105 mmol/L (98-107); SODIUM 139.2 mmol/L (137-145)
[2018-06-14 06:14] LABS: ANION GAP 5 (5-19)
[2018-06-14] MEDS: NAPROXEN 375 MG TABLET PO SCH ×3 (08:08→17:21)
[2018-06-14] MEDS: POTASSIUM CHLORIDE 10 MEQ CAPSULE.ER PO ONE ×2 (08:08→08:19)
[2018-06-14] MEDS: INSULIN LISPRO 100 UNIT/ML 3 ML VIAL SUBCUT PRN ×2 (08:09→17:21)
[2018-06-14] MEDS: ONDANSETRON HCL INJ/PF 4 MG/2 ML SDV IV PRN ×2 (08:09→19:51)
[2018-06-14] MEDS: HUM INSULIN NPH/REG INSULIN HM 100 UNIT/1 ML 3 ML SUBCUT SCH ×2 (08:10→17:22)
[2018-06-14] MEDS: DOCUSATE SODIUM 100 MG CAPSULE PO SCH ×2 (10:30→17:21)
[2018-06-14] MEDS: LISINOPRIL 10 MG TABLET PO SCH (10:31)
[2018-06-14] MEDS: POLYETHYLENE GLYCOL 3350 POWDER 17 GM/1 PACKET PO SCH ×2 (10:32→10:40)
[2018-06-14] MEDS: MINERAL OIL/PETROLATUM,WHITE CREAM 114 GM TP SCH (10:32)
[2018-06-14] MEDS: LIDOCAINE 5% (700 MG) TRANSDERMAL ADH..PATCH TP SCH (10:32)
[2018-06-14] MEDS: MAGNESIUM CITRATE 296 ML BOTTLE PO SCH (10:32)
[2018-06-14] MEDS: MORPHINE SULFATE SR 15 MG TABLET PO SCH (10:33)
[2018-06-14] MEDS: FAMOTIDINE 20 MG TABLET PO SCH (10:33)
[2018-06-14] MEDS ORDERED: METOCLOPRAMIDE HCL INJ/PF 10 MG/2 ML SDV IV PRN (14:14)
[2018-06-14] MEDS ORDERED: BISACODYL 5 MG TABEC PO ONE (15:15)
--- NOTE | 2018-06-14 15:18 | RADIOLOGY REPORT (SQ) ---
EXAM DESCRIPTION: PICC INSERTION; U/S GUIDE FOR VASCULAR ACCESS; FLUORO/CV PLACEMENT COMPLETED DATE/TIME: 06/14/2018 3:09 pm; 06/14/2018 3:11 pm REASON FOR STUDY: iv fluids, antibiotics; IV ABX COMPARISON: PICC line placement 05/18/2018 FLUOROSCOPY TIME: 1 minutes 48 seconds 1 ultrasound and 1 digital fluoroscopic images saved to PACS. TECHNIQUE: Fluoroscopic and ultrasound guided PICC placement. LIMITATIONS: None. PROCEDURE: After written consent and assessment were obtained, the patient was brought into the fluo roscopy room and placed supine on the table. Ultrasound evaluation of potential access sites were per formed. After successfully identifying a patent right basilic vein, the right arm was prepped and carina ped in a sterile fashion along with the ultrasound probe. The entry site was anesthetized with 1% lid ocaine. A 21 gauge 7 cm needle was advanced through the skin and into the basilic vein under live ult rasound guidance. An ultrasound image was saved to PACS confirming access site. A .018 guide wire w as then inserted through the needle and into the venous system. The needle was then removed and an 11 blade scalpel was used to make a 1cm skin incision. A 5 fr peel-away sheath was advanced over the w flako and into the venous system. A measurement was then made using the existing wire and live fluorosc opic guidance. The wire was then removed and trimmed. The PICC was advanced through the peel-away she ath and into the venous system. The peel-away sheath was removed and the catheter was adhered to the patients arm with a stat lock. The catheter was then aspirated and flushed and a sterile bandage was placed over the access site. A fluoroscopic spot image was saved to PACS confirming the catheter tip within the superior vena cava. IMPRESSION: SUCCESSFUL PLACEMENT OF A 5 FR DUAL LUMEN 36 CM PICC IN THE LEFT BASILIC VEIN. COMMENT: Patient medication list reviewed: Yes- Quality ID# 130:Eligible professional attests to doc umenting in the medical record they obtained, updated, or reviewed the patient's current medications. . Quality ID 145: Final reports for procedures using fluoroscopy that document radiation exposure han loi, or exposure time and number of fluorographic images (if radiation exposure indices are not avail able) Quality ID #76: The patient was prepped and draped using maximum sterile barrier technique including cap, mask, sterile gown, sterile gloves, a large sterile sheet, hand hygiene, and 2% Chlorhexidine fo r cutaneous antisepsis. When ultrasound is used, sterile ultrasound techniques are followed requiring sterile gel and sterile probes. TECHNICAL DOCUMENTATION: JOB ID: [id number] [employer]- All Rights Reserved rev-11/06 Reading location - IP/workstation name: [email or web address]
[2018-06-14] MEDS ORDERED: POTASSIUM CHLORIDE 20 MEQ/50 ML RTU IV ONE (15:30)
--- NOTE | 2018-06-14 16:42 | PDOC PROGRESS REPORT ---
Subjective Progress Note for:: 06/14/18 Subjective:: The patient appears to be feeling somewhat better today. He still has general malaise with nausea. He still has not had a bowel movement. He has not been inclined to take all of his oral medications. Reason For Visit: LEUKOCYTOSIS Physical Exam Vital Signs: Temp Pulse Resp BP Pulse Ox 97.9 F 60 14 147/64 H 99 06/14/18 09:08 06/14/18 09:08 06/14/18 09:08 06/14/18 09:08 06/14/18 09:08 Intake & Output 06/13/18 06/14/18 06/15/18 06:59 06:59 06:59 Intake Total 1658 2620 Output Total 760 1700 Balance 898 920 Weight 76.7 kg 76.2 kg General appearance: PRESENT: no acute distress, cooperative, well-developed Head exam: PRESENT: atraumatic, normocephalic Mouth exam: PRESENT: dry mucosa, tongue midline Teeth exam: PRESENT: poor dentation Respiratory exam: PRESENT: clear to auscultation manuel, symmetrical, unlabored. ABSENT: rales, rhonchi, wheezes Cardiovascular exam: PRESENT: RRR, +S1, +S2 GI/Abdominal exam: PRESENT: diminished bowel sounds, soft. ABSENT: guarding, tenderness Neurological exam: PRESENT: alert, awake, oriented to person, oriented to place, oriented to time, oriented to situation, CN II-XII grossly intact Psychiatric exam: PRESENT: flat affect - As noted before the patient is not nearly as animated/vital as he has been on previous hospitalizations.. ABSENT: agitated, anxious Focused psych exam: ABSENT: restlessness Results Laboratory Results: 06/14/18 04:19 06/14/18 04:19 06/14/18 06/14/18 04:19 04:19 WBC 13.4 H RBC 3.13 L Hgb 7.5 L Hct 23.8 L MCV 76 L MCH 24.0 L MCHC 31.7 L RDW 19.3 H Plt Count 427 Sodium 139.2 Potassium 3.0 L* Chloride 105 Carbon Dioxide 29 Anion Gap 5 BUN 29 H Creatinine 1.28 H Est GFR ( Amer) > 60 Est GFR (Non-Af Amer) 58 L Glucose 143 H Calcium 8.0 L Impressions: KUB X-Ray 06/13/18 06:00 IMPRESSION: NO RADIOGRAPHIC EVIDENCE FOR ACUTE ABDOMINAL DISEASE. Marked constipation. Guidance Fluoroscopy 06/14/18 00:00 IMPRESSION: SUCCESSFUL PLACEMENT OF A 5 FR DUAL LUMEN 36 CM PICC IN THE LEFT BASILIC VEIN. Interventional Vascular Procedure 06/14/18 00:00 IMPRESSION: SUCCESSFUL PLACEMENT OF A 5 FR DUAL LUMEN 36 CM PICC IN THE LEFT BASILIC VEIN. PICC Line Insertion 06/14/18 00:00 IMPRESSION: SUCCESSFUL PLACEMENT OF A 5 FR DUAL LUMEN 36 CM PICC IN THE LEFT BASILIC VEIN. Assessment & Plan - Diagnosis (1) Bacteremia Is this a current diagnosis for this admission?: Yes Plan: Methicillin sensitive staph aureus. Continue Ancef. Contact precautions no longer required. In my opinion bacteremia is going to be a constant issue until his leg gets definitive treatment. I have suggested amputation on multiple occasions. (2) Diabetic foot ulcer Qualifiers: Diabetic foot ulcer location: midfoot Diabetes mellitus type: type 2 Laterality: right Non-pressure ulcer stage: with necrosis of muscle Qualified Code(s): E11.621 - Type 2 diabetes mellitus with foot ulcer; L97.413 - Non-pressure chronic ulcer of right heel and midfoot with necrosis of muscle Is this a current diagnosis for this admission?: Yes Plan: Very limited healing. Still with purulent drainage despite antibiotic therapy. (3) Candiduria Is this a current diagnosis for this admission?: Yes Plan: Complete fluconazole as ordered (4) Uncontrolled type 2 diabetes mellitus Qualifiers: Glycemic state: with hyperglycemia Qualified Code(s): E11.65 - Type 2 diabetes mellitus with hyperglycemia Is this a current diagnosis for this admission?: Yes Plan: Finally achieving good control with the increased dose of 70/30. If his appetite improves we may need to address this again. (5) Left shoulder pain Qualifiers: Chronicity: unspecified Qualified Code(s): M25.512 - Pain in left shoulder Is this a current diagnosis for this admission?: Yes Plan: The trial of naproxen seems to be helping. (6) HTN (hypertension) Qualifiers: Hypertension type: essential hypertension Qualified Code(s): I10 - Essential (primary) hypertension Is this a current diagnosis for this admission?: Yes Plan: Blood pressures are slowly improving. Continue current regimen for the time being. (7) Constipation Qualifiers: Constipation type: drug induced constipation Qualified Code(s): K59.03 - Drug induced constipation Is this a current diagnosis for this admission?: Yes Plan: The patient has stated that several interventions in the past have helped. He felt that the mag citrate would be effective but it has not been. We are going to try Dulcolax tablets because he said these have been effective in the past. I have also given 1 dose of Reglan more for the nausea than anything. - Time Time Spent with patient: 15-24 minutes Medications reviewed and adjusted accordingly: Yes
[2018-06-14] MEDS: FLUCONAZOLE 200 MG/NS RTU 200 MG/100 ML RTUPB IV SCH (17:21)
[2018-06-14] MEDS: NORMAL SALINE 10 ML SDV (AFTER EACH USE) IV PRN ×2 (19:53→19:54)
[2018-06-15 05:12] LABS: HEMATOCRIT 21.6 % (37.9-51.0); MEAN CORPUSCULAR HEMOGLOBIN 24.6 pg (27.0-33.4); MEAN CORPUSCULAR HGB CONC 31.9 g/dL (32.0-36.0); MEAN CORPUSCULAR VOLUME 77 fl (80-97); PLATELET COUNT 404 10^3/uL (150-450); RED CELL DISTRIBUTION WIDTH 19.5 % (11.5-14.0); WHITE BLOOD COUNT 13.9 10^3/uL (4.0-10.5)
[2018-06-15 05:13] LABS: HEMOGLOBIN 6.9 g/dL (13.5-17.0)
[2018-06-15 05:58] LABS: ANION GAP 5 (5-19); BLOOD UREA NITROGEN 23 mg/dL (7-20); CALCIUM 7.5 mg/dL (8.4-10.2); CARBON DIOXIDE 28 mmol/L (22-30); CHLORIDE 104 mmol/L (98-107); GLUCOSE 224 mg/dL (75-110); PHOSPHORUS 2.8 mg/dL (2.5-4.5); POTASSIUM 3.6 mmol/L (3.6-5.0)
[2018-06-15] MEDS: TRAZODONE HCL 50 MG TABLET PO SCH (06:13)
[2018-06-15] MEDS: MORPHINE SULFATE SR 15 MG TABLET PO SCH ×2 (06:13→10:37)
[2018-06-15] MEDS: HEPARIN SOD (PORCINE) 5,000 UNIT/ML 1 ML SYRINGE SUBCUT SCH ×3 (06:13→13:54)
[2018-06-15] MEDS: NORMAL SALINE 10 ML SDV (SCHEDULED) IV SCH ×2 (06:14→10:37)
[2018-06-15] MEDS: FAMOTIDINE 20 MG TABLET PO SCH ×3 (06:14→22:25)
[2018-06-15] MEDS: LACTULOSE SYRUP 20 GM/30 ML UDCUP PO SCH ×3 (06:59→22:21)
[2018-06-15] MEDS: HUM INSULIN NPH/REG INSULIN HM 100 UNIT/1 ML 3 ML SUBCUT SCH ×2 (08:56→17:00)
[2018-06-15] MEDS: NAPROXEN 375 MG TABLET PO SCH ×2 (08:56→17:37)
[2018-06-15] MEDS: INSULIN LISPRO 100 UNIT/ML 3 ML VIAL SUBCUT PRN ×2 (08:58→12:39)
[2018-06-15] MEDS: DOCUSATE SODIUM 100 MG CAPSULE PO SCH ×2 (10:19→17:37)
[2018-06-15] MEDS: LISINOPRIL 10 MG TABLET PO SCH (10:19)
[2018-06-15] MEDS: LIDOCAINE 5% (700 MG) TRANSDERMAL ADH..PATCH TP SCH (10:19)
[2018-06-15] MEDS: FLUCONAZOLE 200 MG/NS RTU 200 MG/100 ML RTUPB IV SCH (10:19)
[2018-06-15] MEDS: MAGNESIUM CITRATE 296 ML BOTTLE PO SCH (10:36)
[2018-06-15] MEDS: POLYETHYLENE GLYCOL 3350 POWDER 17 GM/1 PACKET PO SCH (10:37)
[2018-06-15] MEDS: MINERAL OIL/PETROLATUM,WHITE CREAM 114 GM TP SCH (10:37)
[2018-06-15] MEDS: CEFAZOLIN SODIUM 2 GM in DEXTROSE 5%-WATER 100 ML IV SCH ×2 (10:40→17:37)
[2018-06-15] MEDS ORDERED: NORMAL SALINE 250 ML IV PRN ×2 (11:44)
[2018-06-15 12:29] LABS: ABSOLUTE RETICS # 0.061 10^6/uL (0.028-0.122); RETICULOCYTE COUNT (AUTO) 2.16 % (0.66-2.85)
[2018-06-15 13:50] LABS: FOLATE 4.95 ng/mL (>2.76)
[2018-06-15 13:52] LABS: IRON(TIBC) < 10.1 ug/dL (49-181)
[2018-06-15] MEDS: HYDRALAZINE HCL INJ/PF 20 MG/1 ML SDV IV PRN (13:54)
--- NOTE | 2018-06-15 14:03 | PDOC PROGRESS REPORT ---
Subjective Progress Note for:: 06/15/18 Subjective:: The patient is sitting up in the chair. He is somewhat forewarn. Reason For Visit: LEUKOCYTOSIS Physical Exam Vital Signs: Temp Pulse Resp BP Pulse Ox 98.2 F 73 14 180/70 H 100 06/15/18 12:01 06/15/18 12:01 06/15/18 12:01 06/15/18 12:01 06/15/18 12:01 Intake & Output 06/14/18 06/15/18 06/16/18 06:59 06:59 06:59 Intake Total 2620 1319 200 Output Total 1700 875 Balance 920 444 200 Weight 76.2 kg 75.4 kg General appearance: PRESENT: no acute distress, cooperative Respiratory exam: PRESENT: clear to auscultation manuel, symmetrical, unlabored. ABSENT: rales, rhonchi, wheezes Cardiovascular exam: PRESENT: RRR, +S1, +S2 GI/Abdominal exam: PRESENT: normal bowel sounds, soft. ABSENT: tenderness Neurological exam: PRESENT: alert, awake, oriented to person, oriented to place, oriented to time, oriented to situation, CN II-XII grossly intact Psychiatric exam: PRESENT: appropriate affect, normal mood. ABSENT: agitated, anxious Focused psych exam: ABSENT: restlessness Results Laboratory Results: 06/15/18 04:45 06/15/18 04:45 06/15/18 06/15/18 06/15/18 04:45 04:45 04:45 WBC 13.9 H RBC 2.80 L Hgb 6.9 L Hct 21.6 L MCV 77 L MCH 24.6 L MCHC 31.9 L RDW 19.5 H Plt Count 404 Retic Count (auto) 2.16 Absolute Retic 0.061 Sodium 137.0 Potassium 3.6 Chloride 104 Carbon Dioxide 28 Anion Gap 5 BUN 23 H Creatinine 1.30 H Est GFR ( Amer) > 60 Est GFR (Non-Af Amer) 57 L Glucose 224 H Calcium 7.5 L Phosphorus 2.8 Magnesium 2.6 H Iron TIBC % Saturation Ferritin Vitamin B12 Folate Blood Type Antibody Screen 06/15/18 06/15/18 04:45 12:20 WBC RBC Hgb Hct MCV MCH MCHC RDW Plt Count Retic Count (auto) Absolute Retic Sodium Potassium Chloride Carbon Dioxide Anion Gap BUN Creatinine Est GFR ( Amer) Est GFR (Non-Af Amer) Glucose Calcium Phosphorus Magnesium Iron < 10.1 L TIBC 136 L % Saturation UNABLE TO CALCULATE Ferritin 203.00 Vitamin B12 827.0 Folate 4.95 Blood Type A POSITIVE Antibody Screen NEGATIVE Impressions: KUB X-Ray 06/13/18 06:00 IMPRESSION: NO RADIOGRAPHIC EVIDENCE FOR ACUTE ABDOMINAL DISEASE. Marked constipation. Guidance Fluoroscopy 06/14/18 00:00 IMPRESSION: SUCCESSFUL PLACEMENT OF A 5 FR DUAL LUMEN 36 CM PICC IN THE LEFT BASILIC VEIN. Interventional Vascular Procedure 06/14/18 00:00 IMPRESSION: SUCCESSFUL PLACEMENT OF A 5 FR DUAL LUMEN 36 CM PICC IN THE LEFT BASILIC VEIN. PICC Line Insertion 06/14/18 00:00 IMPRESSION: SUCCESSFUL PLACEMENT OF A 5 FR DUAL LUMEN 36 CM PICC IN THE LEFT BASILIC VEIN. Assessment & Plan - Diagnosis (1) Bacteremia Is this a current diagnosis for this admission?: Yes Plan: Staph aureus sensitive to Ancef. Continue Ancef IV. (2) Diabetic foot ulcer Qualifiers: Diabetic foot ulcer location: midfoot Diabetes mellitus type: type 2 Laterality: right Non-pressure ulcer stage: with necrosis of muscle Qualified Code(s): E11.621 - Type 2 diabetes mellitus with foot ulcer; L97.413 - Non-pressure chronic ulcer of right heel and midfoot with necrosis of muscle Is this a current diagnosis for this admission?: Yes Plan: I sat with the patient and had an extended discussion (25 minutes) about why I feel amputation would be the best answer for him. He is considering it. He thought about it last night. I will sit with him again tomorrow. I did explain that sometimes we just cannot cure an infection that is past a certain point. I think he is beginning to understand. (3) Candiduria Is this a current diagnosis for this admission?: Yes Plan: Complete Diflucan as ordered (4) Uncontrolled type 2 diabetes mellitus Qualifiers: Glycemic state: with hyperglycemia Qualified Code(s): E11.65 - Type 2 diabetes mellitus with hyperglycemia Is this a current diagnosis for this admission?: Yes Plan: Sugars were reasonably controlled now they are labile again. Continue the dose of 70/30 and insulin sliding scale. (5) Left shoulder pain Qualifiers: Chronicity: unspecified Qualified Code(s): M25.512 - Pain in left shoulder Is this a current diagnosis for this admission?: Yes Plan: Improved with trial of anti-inflammatories. Monitor renal function. (6) HTN (hypertension) Qualifiers: Hypertension type: essential hypertension Qualified Code(s): I10 - Essential (primary) hypertension Is this a current diagnosis for this admission?: Yes Plan: Still with fluctuations in blood pressure. Some of this is related to pain. I may need to increase his Norvasc. (7) Constipation Qualifiers: Constipation type: drug induced constipation Qualified Code(s): K59.03 - Drug induced constipation Is this a current diagnosis for this admission?: Yes Plan: We will try another dose of Dulcolax. - Time Time Spent with patient: 35 or more minutes Medications reviewed and adjusted accordingly: Yes
[2018-06-15] MEDS ORDERED: BISACODYL 5 MG TABEC PO ONE (15:00)
[2018-06-15] MEDS ORDERED: ENALAPRILAT DIHYDRATE INJ/PF 1.25 MG/1 ML SDV IV ONE (17:00)
[2018-06-15] MEDS ORDERED: AMLODIPINE BESYLATE 10 MG TABLET PO ONE (17:00)
[2018-06-16] MEDS: TRAZODONE HCL 50 MG TABLET PO SCH ×2 (01:47→22:21)
[2018-06-16] MEDS: HEPARIN SOD (PORCINE) 5,000 UNIT/ML 1 ML SYRINGE SUBCUT SCH ×4 (01:48→22:13)
[2018-06-16] MEDS: MORPHINE SULFATE SR 15 MG TABLET PO SCH ×3 (01:48→22:22)
[2018-06-16] MEDS: NORMAL SALINE 10 ML SDV (SCHEDULED) IV SCH ×3 (01:49→22:16)
[2018-06-16] MEDS: CEFAZOLIN SODIUM 2 GM in DEXTROSE 5%-WATER 100 ML IV SCH ×3 (04:21→18:40)
[2018-06-16] MEDS: LACTULOSE SYRUP 20 GM/30 ML UDCUP PO SCH ×3 (05:49→22:21)
[2018-06-16] MEDS: HUM INSULIN NPH/REG INSULIN HM 100 UNIT/1 ML 3 ML SUBCUT SCH ×2 (07:42→16:15)
[2018-06-16] MEDS: INSULIN LISPRO 100 UNIT/ML 3 ML VIAL SUBCUT PRN ×2 (07:43→12:12)
[2018-06-16] MEDS: NAPROXEN 375 MG TABLET PO SCH ×2 (07:43→17:47)
[2018-06-16] MEDS: FLUCONAZOLE 200 MG/NS RTU 200 MG/100 ML RTUPB IV SCH (10:30)
[2018-06-16] MEDS: LIDOCAINE 5% (700 MG) TRANSDERMAL ADH..PATCH TP SCH (10:55)
[2018-06-16] MEDS: MINERAL OIL/PETROLATUM,WHITE CREAM 114 GM TP SCH (10:55)
[2018-06-16] MEDS: LISINOPRIL 10 MG TABLET PO SCH (11:01)
[2018-06-16] MEDS: POLYETHYLENE GLYCOL 3350 POWDER 17 GM/1 PACKET PO SCH (11:02)
[2018-06-16] MEDS: DOCUSATE SODIUM 100 MG CAPSULE PO SCH ×2 (11:03→17:44)
[2018-06-16] MEDS: AMLODIPINE BESYLATE 5 MG TABLET PO SCH (11:03)
[2018-06-16] MEDS: FAMOTIDINE 20 MG TABLET PO SCH ×2 (11:04→22:14)
[2018-06-16] MEDS ORDERED: NORMAL SALINE 250 ML IV PRN ×2 (14:58)
--- NOTE | 2018-06-16 15:14 | PDOC PROGRESS REPORT ---
Subjective Progress Note for:: 06/16/18 Subjective:: The patient is still feeling poorly. Unfortunately he only received 1 unit of packed red blood cells yesterday. Reason For Visit: LEUKOCYTOSIS Physical Exam Vital Signs: Temp Pulse Resp BP Pulse Ox 98.5 F 79 18 170/76 H 97 06/16/18 12:00 06/16/18 12:00 06/16/18 12:00 06/16/18 12:00 06/15/18 16:01 Intake & Output 06/15/18 06/16/18 06/17/18 06:59 06:59 06:59 Intake Total 1319 2186 1282 Output Total 875 1705 970 Balance 444 481 312 Weight 75.4 kg 75.2 kg General appearance: PRESENT: cooperative Head exam: PRESENT: normocephalic Teeth exam: PRESENT: poor dentation Respiratory exam: PRESENT: clear to auscultation manuel, symmetrical, unlabored. ABSENT: rhonchi, wheezes Cardiovascular exam: PRESENT: RRR, +S1, +S2 GI/Abdominal exam: PRESENT: normal bowel sounds, soft. ABSENT: tenderness Extremities exam: PRESENT: other - Dressing removed from the right foot. There was purulent drainage dripping out of the heel. The dressings on the lateral aspect of the foot, over the medial ulcer in the heel wall had foul drainage. The ankle and heel area were swollen. Psychiatric exam: PRESENT: anxious, other - Understandably upset about discussion of amputation Results Laboratory Results: 06/15/18 04:45 06/15/18 04:45 Impressions: KUB X-Ray 06/13/18 06:00 IMPRESSION: NO RADIOGRAPHIC EVIDENCE FOR ACUTE ABDOMINAL DISEASE. Marked constipation. Guidance Fluoroscopy 06/14/18 00:00 IMPRESSION: SUCCESSFUL PLACEMENT OF A 5 FR DUAL LUMEN 36 CM PICC IN THE LEFT BASILIC VEIN. Interventional Vascular Procedure 06/14/18 00:00 IMPRESSION: SUCCESSFUL PLACEMENT OF A 5 FR DUAL LUMEN 36 CM PICC IN THE LEFT BASILIC VEIN. PICC Line Insertion 06/14/18 00:00 IMPRESSION: SUCCESSFUL PLACEMENT OF A 5 FR DUAL LUMEN 36 CM PICC IN THE LEFT BASILIC VEIN. Assessment & Plan - Diagnosis (1) Bacteremia Is this a current diagnosis for this admission?: Yes Plan: Currently on Ancef for his staph aureus. Unfortunately the foot is not getting better. (2) Diabetic foot ulcer Qualifiers: Diabetic foot ulcer location: midfoot Diabetes mellitus type: type 2 Laterality: right Non-pressure ulcer stage: with necrosis of muscle Qualified Code(s): E11.621 - Type 2 diabetes mellitus with foot ulcer; L97.413 - Non-pressure chronic ulcer of right heel and midfoot with necrosis of muscle Is this a current diagnosis for this admission?: Yes Plan: Badly infected. I had a long discussion with the patient. I told him the only option for the best recovery from this is an open below-knee amputation on the right leg. (3) Candiduria Is this a current diagnosis for this admission?: Yes Plan: Complete fluconazole (4) Uncontrolled type 2 diabetes mellitus Qualifiers: Glycemic state: with hyperglycemia Qualified Code(s): E11.65 - Type 2 ken betes mellitus with hyperglycemia Is this a current diagnosis for this admission?: Yes Plan: Continue current regimen. Sugars are fluctuating because of infection. (5) Left shoulder pain Qualifiers: Chronicity: unspecified Qualified Code(s): M25.512 - Pain in left shoulder Is this a current diagnosis for this admission?: Yes (6) HTN (hypertension) Qualifiers: Hypertension type: essential hypertension Qualified Code(s): I10 - Essential (primary) hypertension Is this a current diagnosis for this admission?: Yes Plan: Still fluctuating. Understandable under the circumstances. Continue current regimens. (7) Constipation Qualifiers: Constipation type: drug induced constipation Qualified Code(s): K59.03 - Drug induced constipation Is this a current diagnosis for this admission?: Yes Plan: Improved (8) Iron deficiency anemia Is this a current diagnosis for this admission?: Yes Plan: See also laboratory results. Undetectable serum iron levels. I will start iron sucrose therapy. We will start with 100 mg every other day for 5 doses and reassess. - Time Time Spent with patient: 15-24 minutes Medications reviewed and adjusted accordingly: Yes - Plan Summary Plan Summary: I had a long discussion with the patient while the nurses in the room. His foot is definitely not responding to therapy. I explained that more surgery would actually make it worse. As more tissue than just the heel would have to be removed and it would make it impractical for ambulation. With that in mind I explained how a below-knee amputation would resolve infection and allow him to get his life back after this heals. I explained how it would require intensive therapy afterwards and adjustment to the amputation status. I also explained how the prosthetic is made using custom fit technology. He was tearful but I think he understands that this is the only realistic option. He wants to talk to family before he decides. His hemoglobin is still quite low and so despite ordering 2 units of packed red blood cells yesterday he received 1. I asked that he receive 2 units today. In addition his iron was undetectable. I will start intravenous iron therapy.
[2018-06-16] MEDS: IRON SUCROSE COMPLEX INJ/PF 100 MG/5 ML SDV IV SCH (18:40)
[2018-06-17] MEDS: CEFAZOLIN SODIUM 2 GM in DEXTROSE 5%-WATER 100 ML IV SCH ×3 (04:09→17:07)
[2018-06-17] MEDS: HEPARIN SOD (PORCINE) 5,000 UNIT/ML 1 ML SYRINGE SUBCUT SCH ×3 (08:00→21:53)
[2018-06-17] MEDS: LACTULOSE SYRUP 20 GM/30 ML UDCUP PO SCH ×3 (08:00→21:53)
[2018-06-17 08:10] LABS: INTERNATIONAL RATION (INR) 1.53; PARTIAL THROMBOPLASTIN TIME 44.1 SEC (23.5-35.8); PROTHROMBIN TIME 19.1 SEC (11.4-15.4)
[2018-06-17 08:11] LABS: ABSOLUTE BASOPHILS # (AUTO) 0.1 10^3/uL (0.0-0.2); ABSOLUTE EOSINOPHILS # (AUTO) 0.1 10^3/uL (0.0-0.6); ABSOLUTE LYMPHOCYTES (AUTO) 1.2 10^3/uL (0.5-4.7); ABSOLUTE MONOCYTES (AUTO) 0.8 10^3/uL (0.1-1.4); ABSOLUTE NEUT (AUTO) 8.6 10^3/uL (1.7-8.2); BASOPHILS % (AUTO) 0.5 % (0-2); HEMATOCRIT 29.3 % (37.9-51.0); LYMPHOCYTES % (AUTO) 11.3 % (13-45); MEAN CORPUSCULAR HEMOGLOBIN 26.2 pg (27.0-33.4); MEAN CORPUSCULAR HGB CONC 33.2 g/dL (32.0-36.0); MEAN CORPUSCULAR VOLUME 79 fl (80-97); MONOCYTES % (AUTO) 7.3 % (3-13); PLATELET COUNT 280 10^3/uL (150-450); RED BLOOD COUNT 3.72 10^6/uL (4.35-5.55); RED CELL DISTRIBUTION WIDTH 18.3 % (11.5-14.0); SEGMENTED NEUTROPHILS % (AUTO) 79.9 % (42-78); TOTAL CELLS COUNTED % (AUTO) 100 %; WHITE BLOOD COUNT 10.7 10^3/uL (4.0-10.5)
[2018-06-17 08:14] LABS: HEMOGLOBIN 9.7 g/dL (13.5-17.0)
[2018-06-17] MEDS: NAPROXEN 375 MG TABLET PO SCH ×3 (08:15→17:49)
[2018-06-17] MEDS: HUM INSULIN NPH/REG INSULIN HM 100 UNIT/1 ML 3 ML SUBCUT SCH ×2 (08:16→17:02)
[2018-06-17 08:28] LABS: ALANINE AMINOTRANSFERASE < 6 U/L (21-72); ALBUMIN 2.3 g/dL (3.5-5.0); ALKALINE PHOSPHATASE 131 U/L (38-126); ANION GAP 7 (5-19); ASPARTATE AMINO TRANSFERASE 10 U/L (17-59); BILIRUBIN,DIRECT 0.4 mg/dL (0.0-0.4); BILIRUBIN,TOTAL 0.6 mg/dL (0.2-1.3); BLOOD UREA NITROGEN 16 mg/dL (7-20); CARBON DIOXIDE 26 mmol/L (22-30); CHLORIDE 105 mmol/L (98-107); GLUCOSE 207 mg/dL (75-110); POTASSIUM 3.7 mmol/L (3.6-5.0); SODIUM 137.7 mmol/L (137-145); TOTAL PROTEIN 6.9 g/dL (6.3-8.2)
[2018-06-17] MEDS: MINERAL OIL/PETROLATUM,WHITE CREAM 114 GM TP SCH (10:31)
[2018-06-17] MEDS: MORPHINE SULFATE SR 15 MG TABLET PO SCH ×2 (10:32→21:52)
[2018-06-17] MEDS: FAMOTIDINE 20 MG TABLET PO SCH ×2 (10:32→21:53)
[2018-06-17] MEDS: POLYETHYLENE GLYCOL 3350 POWDER 17 GM/1 PACKET PO SCH (10:32)
[2018-06-17] MEDS: DOCUSATE SODIUM 100 MG CAPSULE PO SCH ×2 (10:35→17:07)
[2018-06-17] MEDS: AMLODIPINE BESYLATE 5 MG TABLET PO SCH (10:36)
[2018-06-17] MEDS: LISINOPRIL 10 MG TABLET PO SCH (10:36)
[2018-06-17] MEDS: LIDOCAINE 5% (700 MG) TRANSDERMAL ADH..PATCH TP SCH (10:37)
[2018-06-17] MEDS: NORMAL SALINE 10 ML SDV (SCHEDULED) IV SCH ×2 (10:37→21:53)
[2018-06-17] MEDS: FLUCONAZOLE 200 MG/NS RTU 200 MG/100 ML RTUPB IV SCH (10:38)
[2018-06-17] MEDS: TRAZODONE HCL 50 MG TABLET PO SCH (21:52)
[2018-06-18] MEDS: CEFAZOLIN SODIUM 2 GM in DEXTROSE 5%-WATER 100 ML IV SCH ×3 (04:57→17:02)
[2018-06-18] MEDS: LACTULOSE SYRUP 20 GM/30 ML UDCUP PO SCH ×3 (05:05→21:10)
[2018-06-18] MEDS: HEPARIN SOD (PORCINE) 5,000 UNIT/ML 1 ML SYRINGE SUBCUT SCH ×3 (05:05→21:10)
[2018-06-18] MEDS: NAPROXEN 375 MG TABLET PO SCH ×2 (08:52→16:57)
[2018-06-18] MEDS: HUM INSULIN NPH/REG INSULIN HM 100 UNIT/1 ML 3 ML SUBCUT SCH ×2 (08:52→16:57)
--- NOTE | 2018-06-18 09:49 | PDOC PROGRESS REPORT ---
Subjective Progress Note for:: 06/17/18 Subjective:: Feeling okay, right foot pain controlled. Denies fever or chills, no chest pain or shortness of breath or palpitations. Reason For Visit: LEUKOCYTOSIS Physical Exam Vital Signs: Temp Pulse Resp BP Pulse Ox 99.0 F 89 19 183/82 H 95 06/17/18 17:04 06/17/18 19:00 06/17/18 17:04 06/17/18 17:04 06/17/18 17:04 Intake & Output 06/16/18 06/17/18 06/18/18 06:59 06:59 06:59 Intake Total 2186 3670 497 Output Total 1705 1970 700 Balance 481 1700 -203 Weight 75.2 kg 75.4 kg General appearance: PRESENT: cooperative Head exam: PRESENT: normocephalic Teeth exam: PRESENT: poor dentation Respiratory exam: PRESENT: clear to auscultation manuel, symmetrical, unlabored. ABSENT: rhonchi, wheezes Cardiovascular exam: PRESENT: RRR, +S1, +S2 GI/Abdominal exam: PRESENT: normal bowel sounds, soft. ABSENT: tenderness Extremities exam: PRESENT: other - Dressing intact with some staining from drainage. Psychiatric exam: PRESENT: Normal affect Results Laboratory Results: 06/17/18 07:30 06/17/18 07:30 06/15/18 06/17/18 06/17/18 12:20 07:30 07:30 WBC 10.7 H RBC 3.72 L Hgb 9.7 L D Hct 29.3 L MCV 79 L MCH 26.2 L MCHC 33.2 RDW 18.3 H Plt Count 280 Seg Neutrophils % 79.9 H Lymphocytes % 11.3 L Monocytes % 7.3 Eosinophils % 1.0 Basophils % 0.5 Absolute Neutrophils 8.6 H Absolute Lymphocytes 1.2 Absolute Monocytes 0.8 Absolute Eosinophils 0.1 Absolute Basophils 0.1 Sodium 137.7 Potassium 3.7 Chloride 105 Carbon Dioxide 26 Anion Gap 7 BUN 16 Creatinine 1.08 Est GFR ( Amer) > 60 Est GFR (Non-Af Amer) > 60 Glucose 207 H Calcium 8.0 L Total Bilirubin 0.6 AST 10 L ALT < 6 L Alkaline Phosphatase 131 H Total Protein 6.9 Albumin 2.3 L Blood Type A POSITIVE Antibody Screen NEGATIVE Impressions: KUB X-Ray 06/13/18 06:00 IMPRESSION: NO RADIOGRAPHIC EVIDENCE FOR ACUTE ABDOMINAL DISEASE. Marked constipation. Guidance Fluoroscopy 06/14/18 00:00 IMPRESSION: SUCCESSFUL PLACEMENT OF A 5 FR DUAL LUMEN 36 CM PICC IN THE LEFT BASILIC VEIN. Interventional Vascular Procedure 06/14/18 00:00 IMPRESSION: SUCCESSFUL PLACEMENT OF A 5 FR DUAL LUMEN 36 CM PICC IN THE LEFT BASILIC VEIN. PICC Line Insertion 06/14/18 00:00 IMPRESSION: SUCCESSFUL PLACEMENT OF A 5 FR DUAL LUMEN 36 CM PICC IN THE LEFT BASILIC VEIN. Assessment & Plan - Diagnosis (1) Bacteremia Is this a current diagnosis for this admission?: Yes Plan: Currently on Ancef for his staph aureus. (2) Diabetic foot infection Is this a current diagnosis for this admission?: Yes Plan: On Ancef as above. Patient states he is still thinking about possible amputation as the best chance for recovery. 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 Continue antibiotics, dressing changes/wound care. (4) Wound of right foot Is this a current diagnosis for this admission?: Yes Plan: See above (5) Iron deficiency anemia Is this a current diagnosis for this admission?: Yes Plan: Undetectable serum iron levels. Continue iron sucrose therapy which was started at 100 mg every other day with plans to treat for 5 doses and reassess. (6) HTN (hypertension) Qualifiers: Hypertension type: unspecified secondary hypertension Qualified Code(s): I15.9 - Secondary hypertension, unspecified; I15 - Secondary hypertension Is this a current diagnosis for this admission?: Yes Plan: Continue management (7) Candiduria Is this a current diagnosis for this admission?: Yes Plan: Complete fluconazole course
[2018-06-18] MEDS: MINERAL OIL/PETROLATUM,WHITE CREAM 114 GM TP SCH (10:23)
--- NOTE | 2018-06-18 10:29 | PDOC PROGRESS REPORT ---
Subjective Progress Note for:: 06/18/18 Subjective:: Feeling okay, states he is leaning more towards a possible right leg amputation for nonhealing right foot ulcer. Nurse reports patient refusing Accu-Cheks. Right foot pain controlled. Denies fever or chills, no chest pain or shortness of breath or palpitations. Reason For Visit: LEUKOCYTOSIS Physical Exam Vital Signs: Temp Pulse Resp BP Pulse Ox 97.7 F 68 18 159/77 H 97 06/18/18 08:30 06/18/18 08:30 06/18/18 08:30 06/18/18 08:30 06/18/18 08:30 Intake & Output 06/17/18 06/18/18 06/19/18 06:59 06:59 06:59 Intake Total 3670 1254 Output Total 1970 700 Balance 1700 554 Weight 75.4 kg General appearance: PRESENT: cooperative Head exam: PRESENT: normocephalic Teeth exam: PRESENT: poor dentation Respiratory exam: PRESENT: clear to auscultation manuel, symmetrical, unlabored. ABSENT: rhonchi, wheezes Cardiovascular exam: PRESENT: RRR, +S1, +S2 GI/Abdominal exam: PRESENT: normal bowel sounds, soft. ABSENT: tenderness Extremities exam: PRESENT: other - Dressing intact with some staining. Psychiatric exam: PRESENT: Normal affect Results Laboratory Results: 06/17/18 07:30 06/17/18 07:30 Impressions: KUB X-Ray 06/13/18 06:00 IMPRESSION: NO RADIOGRAPHIC EVIDENCE FOR ACUTE ABDOMINAL DISEASE. Marked constipation. Guidance Fluoroscopy 06/14/18 00:00 IMPRESSION: SUCCESSFUL PLACEMENT OF A 5 FR DUAL LUMEN 36 CM PICC IN THE LEFT BASILIC VEIN. Interventional Vascular Procedure 06/14/18 00:00 IMPRESSION: SUCCESSFUL PLACEMENT OF A 5 FR DUAL LUMEN 36 CM PICC IN THE LEFT BASILIC VEIN. PICC Line Insertion 06/14/18 00:00 IMPRESSION: SUCCESSFUL PLACEMENT OF A 5 FR DUAL LUMEN 36 CM PICC IN THE LEFT BASILIC VEIN. Assessment & Plan - Diagnosis (1) Bacteremia Is this a current diagnosis for this admission?: Yes Plan: Currently on cefazolin for his staph aureus. The bug is sensitive to these antibiotics. (2) Diabetic foot infection Is this a current diagnosis for this admission?: Yes Plan: On Ancef as above. Patient states he is open to possible amputation as the best chance for recovery. He is interested in surgical to reevaluation for other alternative/further recommendation for possible healing of his current ulcer. 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 Continue antibiotics, dressing changes/wound care. Surgical consult Dr. Hampton. (4) Wound of right foot Is this a current diagnosis for this admission?: Yes Plan: See above (5) Iron deficiency anemia Is this a current diagnosis for this admission?: Yes Plan: Undetectable serum iron levels. Continue iron sucrose therapy which was started at 100 mg every other day with plans to treat for 5 doses and reassess. 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 Diabetes mellitus complication status: with skin complications Diabetes mellitus complication detail: with foot ulcer Qualified Code(s): E11.621 - Type 2 diabetes mellitus with foot ulcer; L97.509 - Non-pressure chronic ulcer of other part of unspecified foot with unspecified severity; L97.509 - Non-pressure chronic ulcer of other part of unspecified foot with unspecified severity; L97.509 - Non-pressure chronic ulcer of other part of unspecified foot with unspecified severity; L97.509 - Non-pressure chronic ulcer of other part of unspecified foot with unspecified severity; 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 Informed that in addition to avoiding other complications, good control of his diabetes is essential for his wound healing. - Plan Summary Plan Summary: Follow CBC and Chem-7 in a.m. Again, surgical consult.
[2018-06-18] MEDS: NORMAL SALINE 10 ML SDV (SCHEDULED) IV SCH ×2 (10:40→21:11)
[2018-06-18] MEDS: POLYETHYLENE GLYCOL 3350 POWDER 17 GM/1 PACKET PO SCH (10:40)
[2018-06-18] MEDS: FLUCONAZOLE 200 MG/NS RTU 200 MG/100 ML RTUPB IV SCH (10:41)
[2018-06-18] MEDS: DOCUSATE SODIUM 100 MG CAPSULE PO SCH ×2 (10:41→17:07)
[2018-06-18] MEDS: LIDOCAINE 5% (700 MG) TRANSDERMAL ADH..PATCH TP SCH (10:41)
[2018-06-18] MEDS: LISINOPRIL 10 MG TABLET PO SCH (10:42)
[2018-06-18] MEDS: FAMOTIDINE 20 MG TABLET PO SCH ×2 (10:42→21:11)
[2018-06-18] MEDS: AMLODIPINE BESYLATE 5 MG TABLET PO SCH (10:42)
[2018-06-18] MEDS: MORPHINE SULFATE SR 15 MG TABLET PO SCH ×3 (10:42→23:17)
[2018-06-18] MEDS: INSULIN LISPRO 100 UNIT/ML 3 ML VIAL SUBCUT PRN (12:00)
[2018-06-18] MEDS: HYDRALAZINE HCL INJ/PF 20 MG/1 ML SDV IV PRN (12:00)
--- NOTE | 2018-06-18 15:46 | RADIOLOGY REPORT (SQ) ---
EXAM DESCRIPTION: FOOT RIGHT 2 VIEWS COMPLETED DATE/TIME: 06/18/2018 3:12 pm REASON FOR STUDY: OSTEOMYLITIS COMPARISON: 05/09/2018 NUMBER OF VIEWS: Two views. TECHNIQUE: AP and lateral radiographic images acquired of the right foot. LIMITATIONS: None. FINDINGS: MINERALIZATION: Osteopenia. 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 Increasi ng periosteal reaction base of the 3rd metatarsal. JOINTS: Intact as visualized. SOFT TISSUES: Diffuse swelling. OTHER: No other significant finding. IMPRESSION: Findings consistent with osteomyelitis in the surgical bed. TECHNICAL DOCUMENTATION: JOB ID: [id number] [employer]- All Rights Reserved Reading location - IP/workstation name: [email or web address] DEPARTMENT [email or web address]
[2018-06-18] MEDS: IRON SUCROSE COMPLEX INJ/PF 100 MG/5 ML SDV IV SCH (17:02)
--- NOTE | 2018-06-18 20:29 | PDOC CONSULTATION ---
Consultation Consult Date: 06/18/18 Consult reason:: non healing right foot wounds History of Present Illness Admission Date/PCP: 06/08/18 04:18 CHANDNI DIAS Patient complains of: right foot pains History of Present Illness: LEEANNE WYLIE is a 57 year old male with DM noted chronic wounds right foot with prior toe/metatarsal amputations. Somehow patient after last discharge did not get his wound vac. At any rate, patient admitted this time for non healing wounds on the right foot. I just ordered an XRAY OF THE RIGHT FOOT WHICH SHOWED OSTEOMYELITIS. Past Medical History Cardiac Medical History: Reports: Hyperlipidema, Hypertension Pulmonary Medical History: Reports: Chronic Obstructive Pulmonary Disease (COPD) Denies: Tuberculosis EENT Medical History: Reports: None Neurological Medical History: Denies: Hemorrhagic CVA, Ischemic CVA Endocrine Medical History: Reports: Diabetes Mellitus Type 2 Denies: Diabetes Mellitus Type 1, Hyperthyroidism Renal/ Medical History: Denies: End Stage Renal Disease, Nephrolithiasis Malignancy Medical History: Reports: None GI Medical History: Denies: Cirrhosis, Hepatitis Skin Medical History: Reports: Other - Foot ulcers and other skin complications of diabetes mellitus Denies: Eczema, Psoriasis Psychiatric Medical History: Reports: Depression, Substance Abuse, Tobacco Dependency Denies: Alcohol Dependency Traumatic Medical History: Reports: None Hematology: Denies: Anemia, Bleeding Tendencies Infectious Medical History: Reports: Methicillin-Resistant Staph Aureus Past Surgical History Past Surgical History: Reports: Orthopedic Surgery - fifth right toe amputated, Other - Umbilical hernia repair, amputation right 5th digit with 5t metatarsal bone Social History Smoking Status: Current Every Day Smoker Frequency of Alcohol Use: None Hx Recreational Drug Use: Yes Drugs: Marijuana Hx Prescription Drug Abuse: No - Advance Directive Resuscitation Status: Full Code Family History Family History: DM, Hypertension Parental Family History Reviewed: Yes Children Family History Reviewed: No Sibling(s) Family History Reviewed.: No Medication/Allergy Home Medications: No Home Medications 06/08/18 Allergies/Adverse Reactions: metformin Allergy (Unknown, Verified 04/22/18 08:05) Review of Systems Constitutional: PRESENT: other - denies fever/chills Eyes: PRESENT: other - no visual/hearing changes Nose, Mouth, and Throat: PRESENT: other - no headaches Cardiovascular: PRESENT: other - no chest pains/cough Gastrointestinal: PRESENT: other - no pains Genitourinary: PRESENT: other - no dysuria Musculoskeletal: PRESENT: other - non healing wounds right foot Neurological: PRESENT: numbness - right foot Physical Exam Vital Signs: Temp Pulse Resp BP Pulse Ox 98.4 F 61 18 155/71 H 96 06/18/18 14:52 06/18/18 14:52 06/18/18 14:52 06/18/18 14:52 06/18/18 14:52 Intake & Output 06/17/18 06/18/18 06/19/18 06:59 06:59 06:59 Intake Total 3670 1254 900 Output Total 6591 444 0288 Balance 1700 554 -250 Weight 75.4 kg General appearance: PRESENT: no acute distress Head exam: PRESENT: atraumatic Mouth exam: PRESENT: moist Neck exam: PRESENT: full ROM Respiratory exam: PRESENT: clear to auscultation manuel Cardiovascular exam: PRESENT: RRR Pulses: PRESENT: normal radial pulses Vascular exam: PRESENT: normal capillary refill GI/Abdominal exam: PRESENT: soft Rectal exam: PRESENT: deferred Extremities exam: PRESENT: other - has draining wounds right lateral,medial foot with edema Neurological exam: PRESENT: alert, oriented to person, oriented to place, oriented to time, oriented to situation Psychiatric exam: PRESENT: appropriate affect Results Laboratory Results: 06/17/18 07:30 06/17/18 07:30 Impressions: KUB X-Ray 06/13/18 06:00 IMPRESSION: NO RADIOGRAPHIC EVIDENCE FOR ACUTE ABDOMINAL DISEASE. Marked constipation. Guidance Fluoroscopy 06/14/18 00:00 IMPRESSION: SUCCESSFUL PLACEMENT OF A 5 FR DUAL LUMEN 36 CM PICC IN THE LEFT BASILIC VEIN. Interventional Vascular Procedure 06/14/18 00:00 IMPRESSION: SUCCESSFUL PLACEMENT OF A 5 FR DUAL LUMEN 36 CM PICC IN THE LEFT BASILIC VEIN. PICC Line Insertion 06/14/18 00:00 IMPRESSION: SUCCESSFUL PLACEMENT OF A 5 FR DUAL LUMEN 36 CM PICC IN THE LEFT BASILIC VEIN. Foot X-Ray 06/18/18 00:00 IMPRESSION: Findings consistent with osteomyelitis in the surgical bed. Assessment & Plan - Diagnosis (1) Diabetes mellitus Qualifiers: Diabetes mellitus type: type 2 Diabetes mellitus terminal supervisor insulin use: with terminal supervisor use Diabetes mellitus complication status: with skin complications Diabetes mellitus complication detail: with foot ulcer Qualified Code(s): E11.621 - Type 2 diabetes mellitus with foot ulcer; L97.509 - Non-pressure chronic ulcer of other part of unspecified foot with unspecified severity; L97.509 - Non-pressure chronic ulcer of other part of unspecified foot with unspecified severity; L97.509 - Non-pressure chronic ulcer of other part of unspecified foot with unspecified severity; L97.509 - Non-pressure chronic ulcer of other part of unspecified foot with unspecified severity; 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.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; Z79.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; Z79.4 - retirement (current) use of insulin; Z79.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 Is this a current diagnosis for this admission?: Yes (2) Diabetic foot ulcer Qualifiers: Diabetic foot ulcer location: midfoot Diabetes mellitus type: type 2 Laterality: right Non-pressure ulcer stage: with necrosis of muscle Qualified Code(s): E11.621 - Type 2 diabetes mellitus with foot ulcer; L97.413 - Non-pressure chronic ulcer of right heel and midfoot with necrosis of muscle Is this a current diagnosis for this admission?: Yes (3) Osteomyelitis due to type 2 diabetes mellitus Is this a current diagnosis for this admission?: Yes (4) Tobacco abuse Is this a current diagnosis for this admission?: Yes (5) Wound of right foot Is this a current diagnosis for this admission?: Yes - Time Time Spent: 30 to 50 Minutes - Inpatient Certification Medical Necessity: Need For IV Fluids, Need for IV Antibiotics, Need for Surgery - Plan Summary Plan Summary: SInce he has non healing wounds right foot and now with osteomyelitis, i agree that he needs at least a BKA. He has not completely agreed to surgery yet. Will keep right foot elevated and try to keep edema down for better healing post op. Meantime, continue IV antibiotics. Will talk to him tomorrow again to convince him for the need of amputation.
[2018-06-18] MEDS: TRAZODONE HCL 50 MG TABLET PO SCH (21:09)
[2018-06-18 21:54] LABS: ABSOLUTE EOSINOPHILS # (AUTO) 0.1 10^3/uL (0.0-0.6); ABSOLUTE LYMPHOCYTES (AUTO) 1.9 10^3/uL (0.5-4.7); ABSOLUTE MONOCYTES (AUTO) 0.9 10^3/uL (0.1-1.4); ABSOLUTE NEUT (AUTO) 8.1 10^3/uL (1.7-8.2); BASOPHILS % (AUTO) 0.4 % (0-2); EOSINOPHILS % (AUTO) 1.3 % (0-6); HEMATOCRIT 30.7 % (37.9-51.0); HEMOGLOBIN 10.2 g/dL (13.5-17.0); LYMPHOCYTES % (AUTO) 17.5 % (13-45); MEAN CORPUSCULAR HEMOGLOBIN 26.3 pg (27.0-33.4); MEAN CORPUSCULAR HGB CONC 33.3 g/dL (32.0-36.0); MEAN CORPUSCULAR VOLUME 79 fl (80-97); MONOCYTES % (AUTO) 8.2 % (3-13); PLATELET COUNT 446 10^3/uL (150-450); RED BLOOD COUNT 3.88 10^6/uL (4.35-5.55); RED CELL DISTRIBUTION WIDTH 18.8 % (11.5-14.0); SEGMENTED NEUTROPHILS % (AUTO) 72.6 % (42-78); TOTAL CELLS COUNTED % (AUTO) 100 %; WHITE BLOOD COUNT 11.1 10^3/uL (4.0-10.5)
[2018-06-19] MEDS: CEFAZOLIN SODIUM 2 GM in DEXTROSE 5%-WATER 100 ML IV SCH ×3 (01:25→17:08)
[2018-06-19 05:47] LABS: INTERNATIONAL RATION (INR) 1.12
[2018-06-19 05:48] LABS: ABSOLUTE EOSINOPHILS # (AUTO) 0.1 10^3/uL (0.0-0.6); ABSOLUTE LYMPHOCYTES (AUTO) 1.6 10^3/uL (0.5-4.7); ABSOLUTE MONOCYTES (AUTO) 0.9 10^3/uL (0.1-1.4); ABSOLUTE NEUT (AUTO) 7.4 10^3/uL (1.7-8.2); BASOPHILS % (AUTO) 0.2 % (0-2); EOSINOPHILS % (AUTO) 1.3 % (0-6); HEMATOCRIT 29.8 % (37.9-51.0); HEMOGLOBIN 9.8 g/dL (13.5-17.0); LYMPHOCYTES % (AUTO) 16.1 % (13-45); MEAN CORPUSCULAR HEMOGLOBIN 26.1 pg (27.0-33.4); MEAN CORPUSCULAR VOLUME 79 fl (80-97); MONOCYTES % (AUTO) 8.6 % (3-13); PLATELET COUNT 424 10^3/uL (150-450); RED BLOOD COUNT 3.77 10^6/uL (4.35-5.55); RED CELL DISTRIBUTION WIDTH 18.9 % (11.5-14.0); SEGMENTED NEUTROPHILS % (AUTO) 73.8 % (42-78); TOTAL CELLS COUNTED % (AUTO) 100 %
[2018-06-19 06:13] LABS: ANION GAP 6 (5-19); BLOOD UREA NITROGEN 17 mg/dL (7-20); CALCIUM 8.1 mg/dL (8.4-10.2); CARBON DIOXIDE 28 mmol/L (22-30); CHLORIDE 105 mmol/L (98-107); GLUCOSE 75 mg/dL (75-110); POTASSIUM 3.6 mmol/L (3.6-5.0); SODIUM 138.7 mmol/L (137-145)
[2018-06-19] MEDS: LACTULOSE SYRUP 20 GM/30 ML UDCUP PO SCH ×3 (07:39→21:09)
[2018-06-19] MEDS: HEPARIN SOD (PORCINE) 5,000 UNIT/ML 1 ML SYRINGE SUBCUT SCH ×3 (07:39→21:09)
[2018-06-19] MEDS: NAPROXEN 375 MG TABLET PO SCH ×2 (08:46→17:08)
[2018-06-19] MEDS: HUM INSULIN NPH/REG INSULIN HM 100 UNIT/1 ML 3 ML SUBCUT SCH ×2 (08:46→17:08)
[2018-06-19] MEDS: DOCUSATE SODIUM 100 MG CAPSULE PO SCH ×2 (09:46→17:08)
[2018-06-19] MEDS: MORPHINE SULFATE SR 15 MG TABLET PO SCH ×3 (09:47→21:38)
[2018-06-19] MEDS: LIDOCAINE 5% (700 MG) TRANSDERMAL ADH..PATCH TP SCH (09:47)
[2018-06-19] MEDS: NORMAL SALINE 10 ML SDV (SCHEDULED) IV SCH ×2 (09:48→21:39)
[2018-06-19] MEDS: AMLODIPINE BESYLATE 5 MG TABLET PO SCH (09:48)
[2018-06-19] MEDS: FAMOTIDINE 20 MG TABLET PO SCH ×2 (09:48→21:39)
[2018-06-19] MEDS: LISINOPRIL 10 MG TABLET PO SCH (09:49)
--- NOTE | 2018-06-19 09:52 | PDOC PROGRESS REPORT ---
Subjective Progress Note for:: 06/19/18 Subjective:: mild discomfort right foot. Being elevated Reason For Visit: LEUKOCYTOSIS Physical Exam Vital Signs: Temp Pulse Resp BP Pulse Ox 98.2 F 60 18 144/75 H 98 06/18/18 20:12 06/19/18 07:00 06/18/18 20:12 06/18/18 20:12 06/18/18 20:12 Intake & Output 06/18/18 06/19/18 06/20/18 06:59 06:59 06:59 Intake Total 1254 1000 Output Total 700 1950 Balance 554 -950 Exam: edema right foot/lower leg decreasing Results Laboratory Results: 06/19/18 05:00 06/19/18 05:00 06/18/18 06/19/18 06/19/18 21:30 05:00 05:00 WBC 11.1 H 10.0 RBC 3.88 L 3.77 L Hgb 10.2 L 9.8 L Hct 30.7 L 29.8 L MCV 79 L 79 L MCH 26.3 L 26.1 L MCHC 33.3 33.0 RDW 18.8 H 18.9 H Plt Count 446 424 Seg Neutrophils % 72.6 73.8 Lymphocytes % 17.5 16.1 Monocytes % 8.2 8.6 Eosinophils % 1.3 1.3 Basophils % 0.4 0.2 Absolute Neutrophils 8.1 7.4 Absolute Lymphocytes 1.9 1.6 Absolute Monocytes 0.9 0.9 Absolute Eosinophils 0.1 0.1 Absolute Basophils 0.0 0.0 Sodium 138.7 Potassium 3.6 Chloride 105 Carbon Dioxide 28 Anion Gap 6 BUN 17 Creatinine 1.07 Est GFR ( Amer) > 60 Est GFR (Non-Af Amer) > 60 Glucose 75 Calcium 8.1 L Impressions: KUB X-Ray 06/13/18 06:00 IMPRESSION: NO RADIOGRAPHIC EVIDENCE FOR ACUTE ABDOMINAL DISEASE. Marked constipation. Guidance Fluoroscopy 06/14/18 00:00 IMPRESSION: SUCCESSFUL PLACEMENT OF A 5 FR DUAL LUMEN 36 CM PICC IN THE LEFT BASILIC VEIN. Interventional Vascular Procedure 06/14/18 00:00 IMPRESSION: SUCCESSFUL PLACEMENT OF A 5 FR DUAL LUMEN 36 CM PICC IN THE LEFT BASILIC VEIN. PICC Line Insertion 06/14/18 00:00 IMPRESSION: SUCCESSFUL PLACEMENT OF A 5 FR DUAL LUMEN 36 CM PICC IN THE LEFT BASILIC VEIN. Foot X-Ray 06/18/18 00:00 IMPRESSION: Findings consistent with osteomyelitis in the surgical bed. Assessment & Plan - Diagnosis (1) Diabetes mellitus Qualifiers: Diabetes mellitus type: type 2 Diabetes mellitus manager terminal insulin use: with residential use Diabetes mellitus complication status: with skin complications Diabetes mellitus complication detail: with foot ulcer Qualified Code(s): E11.621 - Type 2 diabetes mellitus with foot ulcer; L97.509 - Non-pressure chronic ulcer of other part of unspecified foot with unspecified severity; L97.509 - Non-pressure chronic ulcer of other part of unspecified foot with unspecified severity; L97.509 - Non-pressure chronic ulcer of other part of unspecified foot with unspecified severity; L97.509 - Non-pressure chronic ulcer of other part of unspecified foot with unspecified severity; Z79.4 - [facility] (current) use of insulin; Z79.4 - [facility] (current) use of insulin; Z79.4 - [facility] (current) use of insulin; Z79.4 - medical terminologist (current) use of insulin Is this a current diagnosis for this admission?: Yes (2) Diabetic foot ulcer Qualifiers: Diabetic foot ulcer location: midfoot Diabetes mellitus type: type 2 Laterality: right Non-pressure ulcer stage: with necrosis of muscle Qualified Code(s): E11.621 - Type 2 diabetes mellitus with foot ulcer; L97.413 - Non-pressure chronic ulcer of right heel and midfoot with necrosis of muscle Is this a current diagnosis for this admission?: Yes (3) Osteomyelitis due to type 2 diabetes mellitus Is this a current diagnosis for this admission?: Yes (4) Tobacco abuse Is this a current diagnosis for this admission?: Yes (5) Wound of right foot Is this a current diagnosis for this admission?: Yes - Time Time Spent with patient: 15-24 minutes - Inpatient Certification Medical Necessity: Need for IV Antibiotics, Need for Surgery - Plan Summary Plan Summary: Still hesitant to give permission for right BKA. Will talk to patient tomorrow and hopefully will give permission for surgery Thursday
[2018-06-19] MEDS: MINERAL OIL/PETROLATUM,WHITE CREAM 114 GM TP SCH (09:59)
[2018-06-19] MEDS: POLYETHYLENE GLYCOL 3350 POWDER 17 GM/1 PACKET PO SCH (10:04)
--- NOTE | 2018-06-19 16:51 | PDOC PROGRESS REPORT ---
Subjective Progress Note for:: 06/19/18 Subjective:: Feeling okay, pain right foot doing okay on current regimen. States he is leaning more towards a possible right leg amputation for nonhealing right foot ulcer. Denies fever or chills, no chest pain or shortness of breath or palpitations. He is keeping his feet elevated. Reason For Visit: LEUKOCYTOSIS Physical Exam Vital Signs: Temp Pulse Resp BP Pulse Ox 98.2 F 55 L 22 H 181/92 H 97 06/19/18 09:47 06/19/18 14:00 06/19/18 09:47 06/19/18 09:47 06/19/18 09:47 Intake & Output 06/18/18 06/19/18 06/20/18 06:59 06:59 06:59 Intake Total 1254 1000 100 Output Total 700 1950 Balance 554 -950 100 General appearance: PRESENT: cooperative Head exam: PRESENT: normocephalic Respiratory exam: PRESENT: clear to auscultation manuel, symmetrical, unlabored. ABSENT: rhonchi, wheezes Cardiovascular exam: PRESENT: RRR, +S1, +S2 GI/Abdominal exam: PRESENT: normal bowel sounds, soft. ABSENT: tenderness Extremities exam: PRESENT: other - Dressing clean, dry, intact. Psychiatric exam: PRESENT: Normal affect Results Laboratory Results: 06/19/18 05:00 06/19/18 05:00 06/18/18 06/19/18 06/19/18 21:30 05:00 05:00 WBC 11.1 H 10.0 RBC 3.88 L 3.77 L Hgb 10.2 L 9.8 L Hct 30.7 L 29.8 L MCV 79 L 79 L MCH 26.3 L 26.1 L MCHC 33.3 33.0 RDW 18.8 H 18.9 H Plt Count 446 424 Seg Neutrophils % 72.6 73.8 Lymphocytes % 17.5 16.1 Monocytes % 8.2 8.6 Eosinophils % 1.3 1.3 Basophils % 0.4 0.2 Absolute Neutrophils 8.1 7.4 Absolute Lymphocytes 1.9 1.6 Absolute Monocytes 0.9 0.9 Absolute Eosinophils 0.1 0.1 Absolute Basophils 0.0 0.0 Sodium 138.7 Potassium 3.6 Chloride 105 Carbon Dioxide 28 Anion Gap 6 BUN 17 Creatinine 1.07 Est GFR ( Amer) > 60 Est GFR (Non-Af Amer) > 60 Glucose 75 Calcium 8.1 L Impressions: KUB X-Ray 06/13/18 06:00 IMPRESSION: NO RADIOGRAPHIC EVIDENCE FOR ACUTE ABDOMINAL DISEASE. Marked constipation. Guidance Fluoroscopy 06/14/18 00:00 IMPRESSION: SUCCESSFUL PLACEMENT OF A 5 FR DUAL LUMEN 36 CM PICC IN THE LEFT BASILIC VEIN. Interventional Vascular Procedure 06/14/18 00:00 IMPRESSION: SUCCESSFUL PLACEMENT OF A 5 FR DUAL LUMEN 36 CM PICC IN THE LEFT BASILIC VEIN. PICC Line Insertion 06/14/18 00:00 IMPRESSION: SUCCESSFUL PLACEMENT OF A 5 FR DUAL LUMEN 36 CM PICC IN THE LEFT BASILIC VEIN. Foot X-Ray 06/18/18 00:00 IMPRESSION: Findings consistent with osteomyelitis in the surgical bed. Assessment & Plan - Diagnosis (1) Bacteremia Is this a current diagnosis for this admission?: Yes (2) Diabetic foot infection Is this a current diagnosis for this admission?: Yes (3) Diabetic foot ulcer Qualifiers: Diabetic foot ulcer location: midfoot Diabetes mellitus type: type 2 Laterality: right Non-pressure ulcer stage: with necrosis of muscle Qualified Code(s): E11.621 - Type 2 diabetes mellitus with foot ulcer; L97.413 - Non-pressure chronic ulcer of right heel and midfoot with necrosis of muscle Is this a current diagnosis for this admission?: Yes (4) Wound of right foot Is this a current diagnosis for this admission?: Yes (5) Iron deficiency anemia Is this a current diagnosis for this admission?: Yes (6) HTN (hypertension) Qualifiers: Hypertension type: unspecified secondary hypertension Qualified Code(s): I15.9 - Secondary hypertension, unspecified; I15 - Secondary hypertension Is this a current diagnosis for this admission?: Yes (7) Candiduria Is this a current diagnosis for this admission?: Yes (8) Diabetes mellitus Qualifiers: Diabetes mellitus type: type 2 Diabetes mellitus manager long term care insulin use: with [facility] use Diabetes mellitus complication status: with skin complications Diabetes mellitus complication detail: with foot ulcer Qualified Code(s): E11.621 - Type 2 diabetes mellitus with foot ulcer; L97.509 - Non-pressure chronic ulcer of other part of unspecified foot with unspecified severity; L97.509 - Non-pressure chronic ulcer of other part of unspecified foot with unspecified severity; L97.509 - Non-pressure chronic ulcer of other part of unspecified foot with unspecified severity; L97.509 - Non-pressure chronic ulcer of other part of unspecified foot with unspecified severity; Z79.4 - senior living (current) use of insulin; Z79.4 - senior living (current) use of insulin; Z79.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 Surgical consult appreciated. Continue wound care. For anemia, undetectable serum iron levels. Continue iron sucrose therapy which was started at 100 mg every other day with plans to treat for 5 doses and reassess. Complete fluconazole course. Continue medical management otherwise, including aggressive diabetes management. Keep feet elevated.
[2018-06-19] MEDS: TRAZODONE HCL 50 MG TABLET PO SCH (21:38)
[2018-06-20] MEDS: CEFAZOLIN SODIUM 2 GM in DEXTROSE 5%-WATER 100 ML IV SCH ×3 (02:28→17:37)
[2018-06-20] MEDS: HEPARIN SOD (PORCINE) 5,000 UNIT/ML 1 ML SYRINGE SUBCUT SCH ×3 (05:09→21:37)
[2018-06-20] MEDS: LACTULOSE SYRUP 20 GM/30 ML UDCUP PO SCH ×3 (05:09→21:47)
[2018-06-20] MEDS: NAPROXEN 375 MG TABLET PO SCH ×2 (08:08→17:37)
[2018-06-20] MEDS: HUM INSULIN NPH/REG INSULIN HM 100 UNIT/1 ML 3 ML SUBCUT SCH ×2 (08:08→17:37)
[2018-06-20] MEDS: MINERAL OIL/PETROLATUM,WHITE CREAM 114 GM TP SCH (09:06)
[2018-06-20] MEDS: POLYETHYLENE GLYCOL 3350 POWDER 17 GM/1 PACKET PO SCH (09:46)
[2018-06-20] MEDS: DOCUSATE SODIUM 100 MG CAPSULE PO SCH ×2 (10:07→17:37)
[2018-06-20] MEDS: LIDOCAINE 5% (700 MG) TRANSDERMAL ADH..PATCH TP SCH (10:07)
[2018-06-20] MEDS: LISINOPRIL 10 MG TABLET PO SCH (10:08)
[2018-06-20] MEDS: MORPHINE SULFATE SR 15 MG TABLET PO SCH ×2 (10:08→21:45)
[2018-06-20] MEDS: FAMOTIDINE 20 MG TABLET PO SCH ×2 (10:08→21:46)
[2018-06-20] MEDS: NORMAL SALINE 10 ML SDV (SCHEDULED) IV SCH ×2 (10:08→21:47)
[2018-06-20] MEDS: AMLODIPINE BESYLATE 5 MG TABLET PO SCH (10:08)
--- NOTE | 2018-06-20 11:26 | PDOC PROGRESS REPORT ---
Subjective Progress Note for:: 06/20/18 Subjective:: He reports doing okay, pain right foot doing controlled on current regimen. States he is now leaning more towards NOT have been a right leg amputation for nonhealing right foot ulcer. However, he is still thinking about it. Denies fever or chills, no chest pain or shortness of breath or palpitations. He is keeping his feet elevated. Reason For Visit: LEUKOCYTOSIS Physical Exam Vital Signs: Temp Pulse Resp BP Pulse Ox 98.3 F 70 20 162/70 H 97 06/20/18 08:09 06/20/18 08:09 06/20/18 08:09 06/20/18 08:09 06/20/18 08:09 Intake & Output 06/19/18 06/20/18 06/21/18 06:59 06:59 06:59 Intake Total 1000 2340 Output Total 1950 1300 Balance -950 1040 General appearance: PRESENT: cooperative Head exam: PRESENT: normocephalic Respiratory exam: PRESENT: clear to auscultation manuel, symmetrical, unlabored. ABSENT: rhonchi, wheezes Cardiovascular exam: PRESENT: RRR, +S1, +S2 GI/Abdominal exam: PRESENT: normal bowel sounds, soft. ABSENT: tenderness Extremities exam: PRESENT: other - Dressing clean, dry, intact. Keeping feet elevated. Psychiatric exam: PRESENT: Normal affect Results Laboratory Results: 06/19/18 05:00 06/19/18 05:00 Impressions: KUB X-Ray 06/13/18 06:00 IMPRESSION: NO RADIOGRAPHIC EVIDENCE FOR ACUTE ABDOMINAL DISEASE. Marked constipation. Guidance Fluoroscopy 06/14/18 00:00 IMPRESSION: SUCCESSFUL PLACEMENT OF A 5 FR DUAL LUMEN 36 CM PICC IN THE LEFT BASILIC VEIN. Interventional Vascular Procedure 06/14/18 00:00 IMPRESSION: SUCCESSFUL PLACEMENT OF A 5 FR DUAL LUMEN 36 CM PICC IN THE LEFT BASILIC VEIN. PICC Line Insertion 06/14/18 00:00 IMPRESSION: SUCCESSFUL PLACEMENT OF A 5 FR DUAL LUMEN 36 CM PICC IN THE LEFT BASILIC VEIN. Foot X-Ray 06/18/18 00:00 IMPRESSION: Findings consistent with osteomyelitis in the surgical bed. Assessment & Plan - Diagnosis (1) Bacteremia Is this a current diagnosis for this admission?: Yes (2) Diabetic foot infection Is this a current diagnosis for this admission?: Yes (3) Diabetic foot ulcer Qualifiers: Diabetic foot ulcer location: midfoot Diabetes mellitus type: type 2 Laterality: right Non-pressure ulcer stage: with necrosis of muscle Qualified Code(s): E11.621 - Type 2 diabetes mellitus with foot ulcer; L97.413 - Non-pressure chronic ulcer of right heel and midfoot with necrosis of muscle Is this a current diagnosis for this admission?: Yes (4) Wound of right foot Is this a current diagnosis for this admission?: Yes (5) Iron deficiency anemia Is this a current diagnosis for this admission?: Yes (6) HTN (hypertension) Qualifiers: Hypertension type: unspecified secondary hypertension Qualified Code(s): I15.9 - Secondary hypertension, unspecified; I15 - Secondary hypertension Is this a current diagnosis for this admission?: Yes (7) Candiduria Is this a current diagnosis for this admission?: Yes (8) Diabetes mellitus Qualifiers: Diabetes mellitus type: type 2 Diabetes mellitus [facility] insulin use: with terminal worker use Diabetes mellitus complication status: with skin complications Diabetes mellitus complication detail: with foot ulcer Qualified Code(s): E11.621 - Type 2 diabetes mellitus with foot ulcer; L97.509 - Non-pressure chronic ulcer of other part of unspecified foot with unspecified se verity; L97.509 - Non-pressure chronic ulcer of other part of unspecified foot with unspecified severity; L97.509 - Non-pressure chronic ulcer of other part of unspecified foot with unspecified severity; L97.509 - Non-pressure chronic ulcer of other part of unspecified foot with unspecified severity; 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 Surgical f/u appreciated. Continue wound care. For anemia, undetectable serum iron levels. Continue iron sucrose therapy which was started at 100 mg every other day with plans to treat for 5 doses and reassess. Will recheck anemia panel in a.m. Complete fluconazole course. Continue medical management otherwise, including aggressive diabetes management. Keep feet elevated.
[2018-06-20] MEDS: INSULIN LISPRO 100 UNIT/ML 3 ML VIAL SUBCUT PRN (11:43)
--- NOTE | 2018-06-20 14:25 | PDOC PROGRESS REPORT ---
Subjective Progress Note for:: 06/20/18 Subjective:: Still have not decide about Right BKA. Reason For Visit: LEUKOCYTOSIS Physical Exam Vital Signs: Temp Pulse Resp BP Pulse Ox 98.2 F 60 16 177/74 H 97 06/20/18 11:06 06/20/18 11:06 06/20/18 11:06 06/20/18 11:06 06/20/18 11:06 Intake & Output 06/19/18 06/20/18 06/21/18 06:59 06:59 06:59 Intake Total 1000 2340 100 Output Total 1950 1300 Balance -950 1040 100 Exam: Right foot still with draining ulcers. Right lower leg swelling decreasing with leg elevation Results Laboratory Results: 06/19/18 05:00 06/19/18 05:00 Impressions: KUB X-Ray 06/13/18 06:00 IMPRESSION: NO RADIOGRAPHIC EVIDENCE FOR ACUTE ABDOMINAL DISEASE. Marked constipation. Guidance Fluoroscopy 06/14/18 00:00 IMPRESSION: SUCCESSFUL PLACEMENT OF A 5 FR DUAL LUMEN 36 CM PICC IN THE LEFT BASILIC VEIN. Interventional Vascular Procedure 06/14/18 00:00 IMPRESSION: SUCCESSFUL PLACEMENT OF A 5 FR DUAL LUMEN 36 CM PICC IN THE LEFT BASILIC VEIN. PICC Line Insertion 06/14/18 00:00 IMPRESSION: SUCCESSFUL PLACEMENT OF A 5 FR DUAL LUMEN 36 CM PICC IN THE LEFT BASILIC VEIN. Foot X-Ray 06/18/18 00:00 IMPRESSION: Findings consistent with osteomyelitis in the surgical bed. Assessment & Plan - Diagnosis (1) Diabetes mellitus Qualifiers: Diabetes mellitus type: type 2 Diabetes mellitus [facility] insulin use: with [facility] use Diabetes mellitus complication status: with skin complications Diabetes mellitus complication detail: with foot ulcer Qualified Code(s): E11.621 - Type 2 diabetes mellitus with foot ulcer; L97.509 - Non-pressure chronic ulcer of other part of unspecified foot with unspecified severity; L97.509 - Non-pressure chronic ulcer of other part of unspecified foot with unspecified severity; L97.509 - Non-pressure chronic ulcer of other part of unspecified foot with unspecified severity; L97.509 - Non-pressure chronic ulcer of other part of unspecified foot with unspecified severity; Z79.4 - computer terminal operator (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) 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 of insulin; Z79.4 - computer terminal operator (current) use of insulin; Z79.4 - computer terminal operator (current) use of insulin; Z79.4 - correction (current) use of insulin Is this a current diagnosis for this admission?: Yes (2) Diabetic foot ulcer Qualifiers: Diabetic foot ulcer location: midfoot Diabetes mellitus type: type 2 Laterality: right Non-pressure ulcer stage: with necrosis of muscle Qualified Code(s): E11.621 - Type 2 diabetes mellitus with foot ulcer; L97.413 - Non-pressure chronic ulcer of right heel and midfoot with necrosis of muscle Is this a current diagnosis for this admission?: Yes (3) Osteomyelitis due to type 2 diabetes mellitus Is this a current diagnosis for this admission?: Yes (4) Tobacco abuse Is this a current diagnosis for this admission?: Yes (5) Wound of right foot Is this a current diagnosis for this admission?: Yes - Time Time Spent with patient: 15-24 minutes - Inpatient Certification Medical Necessity: Need for IV Antibiotics, Need for Surgery - Plan Summary Plan Summary: Had a long talk with the patient. Told him his best option is a right BKA and this is the best time before this infection goes any higher that will preclude BKA then he will be facing a right AKA. Told him AKA will have more difficulty with rehab and ambulation compared to a BKA. He seems to understand and appears to be agreeable for a right BKA. Will keep NPO from midnight for possible right BKA tomorrow.
[2018-06-20] MEDS: IRON SUCROSE COMPLEX INJ/PF 100 MG/5 ML SDV IV SCH (17:37)
[2018-06-20] MEDS: TRAZODONE HCL 50 MG TABLET PO SCH (21:46)
[2018-06-21] MEDS: CEFAZOLIN SODIUM 2 GM in DEXTROSE 5%-WATER 100 ML IV SCH ×3 (02:32→17:45)
[2018-06-21] MEDS: HEPARIN SOD (PORCINE) 5,000 UNIT/ML 1 ML SYRINGE SUBCUT SCH ×2 (06:06→14:15)
[2018-06-21] MEDS: LACTULOSE SYRUP 20 GM/30 ML UDCUP PO SCH ×2 (06:09→14:03)
[2018-06-21 07:37] LABS: ABSOLUTE BASOPHILS # (AUTO) 0.1 10^3/uL (0.0-0.2); ABSOLUTE EOSINOPHILS # (AUTO) 0.1 10^3/uL (0.0-0.6); ABSOLUTE LYMPHOCYTES (AUTO) 1.5 10^3/uL (0.5-4.7); ABSOLUTE MONOCYTES (AUTO) 0.7 10^3/uL (0.1-1.4); ABSOLUTE NEUT (AUTO) 8.5 10^3/uL (1.7-8.2); BASOPHILS % (AUTO) 0.6 % (0-2); EOSINOPHILS % (AUTO) 1.4 % (0-6); HEMOGLOBIN 9.8 g/dL (13.5-17.0); LYMPHOCYTES % (AUTO) 13.8 % (13-45); MEAN CORPUSCULAR HEMOGLOBIN 26.3 pg (27.0-33.4); MEAN CORPUSCULAR HGB CONC 32.8 g/dL (32.0-36.0); MEAN CORPUSCULAR VOLUME 80 fl (80-97); PLATELET COUNT 408 10^3/uL (150-450); RED BLOOD COUNT 3.74 10^6/uL (4.35-5.55); RED CELL DISTRIBUTION WIDTH 19.6 % (11.5-14.0); RETICULOCYTE COUNT (AUTO) 2.14 % (0.66-2.85); SEGMENTED NEUTROPHILS % (AUTO) 78.2 % (42-78); TOTAL CELLS COUNTED % (AUTO) 100 %; WHITE BLOOD COUNT 10.9 10^3/uL (4.0-10.5)
[2018-06-21 08:02] LABS: ANION GAP 8 (5-19); BLOOD UREA NITROGEN 18 mg/dL (7-20); CARBON DIOXIDE 28 mmol/L (22-30); CHLORIDE 103 mmol/L (98-107); GLUCOSE 88 mg/dL (75-110); IRON(TIBC) 28.7 ug/dL (49-181); SODIUM 138.6 mmol/L (137-145)
--- NOTE | 2018-06-21 09:21 | PDOC PROGRESS REPORT ---
Subjective Progress Note for:: 06/21/18 Subjective:: Patient concerned about the consequences of losing his foot, support for prosthesis, and health care after leaving the hospital. Reason For Visit: LEUKOCYTOSIS Physical Exam Vital Signs: Temp Pulse Resp BP Pulse Ox 98.4 F 67 17 154/78 H 99 06/21/18 07:44 06/21/18 07:44 06/21/18 07:44 06/21/18 07:44 06/21/18 07:44 Intake & Output 06/20/18 06/21/18 06/22/18 06:59 06:59 06:59 Intake Total 2340 1413 Output Total 1300 1000 Balance 1040 413 Weight 75.4 kg General appearance: PRESENT: no acute distress Extremities exam: PRESENT: other - Right foot dressing removed; multiple sites of active purulent discharge from the top, medial, and lateral aspects of the foot at sites of previous drainage. The lower leg has scaly skin; there is no significant edema, streaking. There is a strong popliteal pulse. Results Laboratory Results: 06/21/18 07:00 06/21/18 07:00 WBC 10.9 H RBC 3.74 L Hgb 9.8 L Hct 30.0 L MCV 80 MCH 26.3 L MCHC 32.8 RDW 19.6 H Plt Count 408 Seg Neutrophils % 78.2 H Lymphocytes % 13.8 Monocytes % 6.0 Eosinophils % 1.4 Basophils % 0.6 Absolute Neutrophils 8.5 H Absolute Lymphocytes 1.5 Absolute Monocytes 0.7 Absolute Eosinophils 0.1 Absolute Basophils 0.1 Retic Count (auto) 2.14 Absolute Retic 0.080 Impressions: KUB X-Ray 06/13/18 06:00 IMPRESSION: NO RADIOGRAPHIC EVIDENCE FOR ACUTE ABDOMINAL DISEASE. Marked constipation. Guidance Fluoroscopy 06/14/18 00:00 IMPRESSION: SUCCESSFUL PLACEMENT OF A 5 FR DUAL LUMEN 36 CM PICC IN THE LEFT BASILIC VEIN. Interventional Vascular Procedure 06/14/18 00:00 IMPRESSION: SUCCESSFUL PLACEMENT OF A 5 FR DUAL LUMEN 36 CM PICC IN THE LEFT BASILIC VEIN. PICC Line Insertion 06/14/18 00:00 IMPRESSION: SUCCESSFUL PLACEMENT OF A 5 FR DUAL LUMEN 36 CM PICC IN THE LEFT BASILIC VEIN. Foot X-Ray 06/18/18 00:00 IMPRESSION: Findings consistent with osteomyelitis in the surgical bed. Assessment & Plan - Diagnosis (1) Diabetic infection of right foot Is this a current diagnosis for this admission?: Yes Plan: Impression: Persisting deep soft tissue infection, extensive, right foot, status post multiple previous debridements, and fourth and fifth ray amputations in this 57-year-old Afro-Lao male with brittle diabetes and long history of noncompliance primarily due to poor social situation Recommendations: 1. Long talk with patient to reduce risk of soft tissue extension up his leg, necessitating a higher level amputation. This was discussed with the patient with emphasis on the need to proceed with amputation in the next 48 hours. He is not prepared to undergo the amputation today. 2. We will keep him n.p.o. after midnight, and posted for tomorrow, right below the knee amputation.
[2018-06-21 09:24] LABS: FOLATE 5.19 ng/mL (>2.76)
[2018-06-21] MEDS: POLYETHYLENE GLYCOL 3350 POWDER 17 GM/1 PACKET PO SCH (09:39)
[2018-06-21] MEDS: MINERAL OIL/PETROLATUM,WHITE CREAM 114 GM TP SCH (09:50)
[2018-06-21] MEDS: LISINOPRIL 10 MG TABLET PO SCH (09:52)
[2018-06-21] MEDS: FAMOTIDINE 20 MG TABLET PO SCH (09:52)
[2018-06-21] MEDS: MORPHINE SULFATE SR 15 MG TABLET PO SCH (09:52)
[2018-06-21] MEDS: AMLODIPINE BESYLATE 5 MG TABLET PO SCH (09:52)
[2018-06-21] MEDS: NAPROXEN 375 MG TABLET PO SCH ×2 (09:53→17:45)
[2018-06-21] MEDS: LIDOCAINE 5% (700 MG) TRANSDERMAL ADH..PATCH TP SCH (09:53)
[2018-06-21] MEDS: DOCUSATE SODIUM 100 MG CAPSULE PO SCH ×2 (09:53→17:46)
[2018-06-21] MEDS: NORMAL SALINE 10 ML SDV (SCHEDULED) IV SCH (09:55)
[2018-06-21] MEDS: HUM INSULIN NPH/REG INSULIN HM 100 UNIT/1 ML 3 ML SUBCUT SCH ×2 (09:55→17:46)
--- NOTE | 2018-06-21 17:29 | PDOC PROGRESS REPORT ---
Subjective Progress Note for:: 06/21/18 Subjective:: He reports doing okay, pain right foot controlled on current regimen. Patient has been going back and forth on whether to have a right leg amputation for nonhealing foot ulcer. Apparently he was in agreement to proceed today, but wanted to hold off 1 more day. It appears it is now planned for tomorrow. Denies fever or chills, no chest pain or shortness of breath or palpitations. He is keeping his feet elevated. Reason For Visit: LEUKOCYTOSIS Physical Exam Vital Signs: Temp Pulse Resp BP Pulse Ox 98.7 F 62 16 160/80 H 97 06/21/18 16:00 06/21/18 16:00 06/21/18 16:00 06/21/18 16:00 06/21/18 16:00 Intake & Output 06/20/18 06/21/18 06/22/18 06:59 06:59 06:59 Intake Total 2340 1413 100 Output Total 1300 1000 Balance 1040 413 100 Weight 75.4 kg General appearance: PRESENT: cooperative Head exam: PRESENT: normocephalic Respiratory exam: PRESENT: clear to auscultation manuel, symmetrical, unlabored. ABSENT: rhonchi, wheezes Cardiovascular exam: PRESENT: RRR, +S1, +S2 GI/Abdominal exam: PRESENT: normal bowel sounds, soft. ABSENT: tenderness Extremities exam: PRESENT: other - Dressing clean, dry, intact. Keeping feet elevated. Psychiatric exam: PRESENT: Normal affect Results Laboratory Results: 06/21/18 07:00 06/21/18 07:00 06/21/18 06/21/18 07:00 07:00 WBC 10.9 H RBC 3.74 L Hgb 9.8 L Hct 30.0 L MCV 80 MCH 26.3 L MCHC 32.8 RDW 19.6 H Plt Count 408 Seg Neutrophils % 78.2 H Lymphocytes % 13.8 Monocytes % 6.0 Eosinophils % 1.4 Basophils % 0.6 Absolute Neutrophils 8.5 H Absolute Lymphocytes 1.5 Absolute Monocytes 0.7 Absolute Eosinophils 0.1 Absolute Basophils 0.1 Retic Count (auto) 2.14 Absolute Retic 0.080 Sodium 138.6 Potassium 4.0 Chloride 103 Carbon Dioxide 28 Anion Gap 8 BUN 18 Creatinine 1.10 Est GFR ( Amer) > 60 Est GFR (Non-Af Amer) > 60 Glucose 88 Calcium 8.0 L Iron 28.7 L TIBC 154 L % Saturation 19 Ferritin 344.00 Vitamin B12 692.0 Folate 5.19 Impressions: KUB X-Ray 06/13/18 06:00 IMPRESSION: NO RADIOGRAPHIC EVIDENCE FOR ACUTE ABDOMINAL DISEASE. Marked constipation. Guidance Fluoroscopy 06/14/18 00:00 IMPRESSION: SUCCESSFUL PLACEMENT OF A 5 FR DUAL LUMEN 36 CM PICC IN THE LEFT BASILIC VEIN. Interventional Vascular Procedure 06/14/18 00:00 IMPRESSION: SUCCESSFUL PLACEMENT OF A 5 FR DUAL LUMEN 36 CM PICC IN THE LEFT BASILIC VEIN. PICC Line Insertion 06/14/18 00:00 IMPRESSION: SUCCESSFUL PLACEMENT OF A 5 FR DUAL LUMEN 36 CM PICC IN THE LEFT BASILIC VEIN. Foot X-Ray 06/18/18 00:00 IMPRESSION: Findings consistent with osteomyelitis in the surgical bed. Assessment & Plan - Diagnosis (1) Bacteremia Is this a current diagnosis for this admission?: Yes (2) Diabetic foot infection Is this a current diagnosis for this admission?: Yes (3) Diabetic foot ulcer Qualifiers: Diabetic foot ulcer location: midfoot Diabetes mellitus type: type 2 Laterality: right Non-pressure ulcer stage: with necrosis of muscle Qualified Code(s): E11.621 - Type 2 diabetes mellitus with foot ulcer; L97.413 - Non-pressure chronic ulcer of right heel and midfoot with necrosis of muscle Is this a current diagnosis for this admission?: Yes (4) Wound of right foot Is this a current diagnosis for this admission?: Yes (5) Iron deficiency anemia Is this a current diagnosis for this admission?: Yes (6) HTN (hypertension) Qualifiers: Hypertension type: unspecified secondary hypertension Qualified Code(s): I15.9 - Secondary hypertension, unspecified; I15 - Secondary hypertension Is this a current diagnosis for this admission?: Yes (7) Candiduria Is this a current diagnosis for this admission?: Yes (8) Diabetes mellitus Qualifiers: Diabetes mellitus type: type 2 Diabetes mellitus long-term insulin use: with termite control service representative use Diabetes mellitus complication status: with skin complications Diabetes mellitus complication detail: with foot ulcer Qualified Code(s): E11.621 - Type 2 diabetes mellitus with foot ulcer; L97.509 - Non-pressure chronic ulcer of other part of unspecified foot with unspecified severity; L97.509 - Non-pressure chronic ulcer of other part of unspecified foot with unspecified severity; L97.509 - Non-pressure chronic ulcer of other part of unspecified foot with unspecified severity; L97.509 - Non-pressure chronic ulcer of other part of unspecified foot with unspecified severity; Z79.4 - correction (current) use of insulin; Z79.4 - emt intermediate (current) use of insulin; Z79.4 - emt intermediate (current) use of insulin; Z79.4 - correction (current) use of insulin Is this a current diagnosis for this admission?: Yes - Plan Summary Plan Summary: Currently on cefazolin for his staph aureus to which the bug is sensitive. Surgical f/u appreciated. Continue wound care. For anemia, undetectable serum iron levels on initial anemia panel. Continue iron sucrose therapy which was started at 100 mg every other day with plans to treat for 5 doses and reassess. Recheck today reveals improvement of iron level. Suspect a large part of the anemia is is due to chronic disease. We will continue iron sucrose for now. Patient has completed fluconazole course. Continue medical management otherwise, including diabetes management. Keep feet elevated to reduce edema and ensure better wound healing after surgery.
[2018-06-22] MEDS: HEPARIN SOD (PORCINE) 5,000 UNIT/ML 1 ML SYRINGE SUBCUT SCH ×4 (00:02→23:56)
[2018-06-22] MEDS: LACTULOSE SYRUP 20 GM/30 ML UDCUP PO SCH ×4 (00:03→22:05)
[2018-06-22] MEDS: TRAZODONE HCL 50 MG TABLET PO SCH ×2 (00:17→22:04)
[2018-06-22] MEDS: MORPHINE SULFATE SR 15 MG TABLET PO SCH ×3 (00:17→22:03)
[2018-06-22] MEDS: FAMOTIDINE 20 MG TABLET PO SCH ×3 (00:18→22:03)
[2018-06-22] MEDS: NORMAL SALINE 10 ML SDV (SCHEDULED) IV SCH ×3 (00:18→22:09)
[2018-06-22] MEDS: CEFAZOLIN SODIUM 2 GM in DEXTROSE 5%-WATER 100 ML IV SCH (01:56)
[2018-06-22] MEDS ORDERED: DEXMEDETOMIDINE INJ 80 MCG/20 ML VIAL IV ONE (07:47)
[2018-06-22] MEDS ORDERED: LIDOCAINE 2% INJ-PF (20 MG/ML) 10 ML AMPUL ONE (07:47)
[2018-06-22] MEDS ORDERED: LIDOCAINE 1% INJ-PF (10 MG/ML) 30 ML SDV ONE (07:47)
[2018-06-22] MEDS ORDERED: EPHEDRINE SULFATE INJ 50 MG/1 ML AMPULE ONE (07:47)
[2018-06-22] MEDS ORDERED: MIDAZOLAM 2 MG/2 ML INJ ONE (07:47)
[2018-06-22] MEDS ORDERED: FENTANYL CITRATE INJ/PF 250 MCG/5 ML AMPULE ONE (07:47)
[2018-06-22] MEDS ORDERED: PROPOFOL INJ 200 MG/20 ML VIAL IV ONE ×2 (07:48→08:21)
[2018-06-22] MEDS ORDERED: ACETAMINOPHEN 1,000 MG/100 ML RTUPB IV ONE (07:48)
[2018-06-22] MEDS ORDERED: BUPIVACAINE HCL/DEX-WATER/PF 15 MG/2 ML AMPULE ONE (08:22)
[2018-06-22] MEDS: HUM INSULIN NPH/REG INSULIN HM 100 UNIT/1 ML 3 ML SUBCUT SCH ×2 (09:19→17:09)
[2018-06-22] MEDS ORDERED: CEFAZOLIN INJ 1 GM VIAL ONE (09:23)
[2018-06-22] MEDS ORDERED: PROMETHAZINE HCL INJ 25 MG/1 ML VIAL IV PRN ×2 (09:39)
[2018-06-22] MEDS ORDERED: ONDANSETRON HCL INJ/PF 4 MG/2 ML SDV IV PRN (09:39)
[2018-06-22] MEDS ORDERED: FENTANYL CITRATE INJ/PF 100 MCG/2 ML AMPUL IV PRN ×3 (09:39)
[2018-06-22] MEDS ORDERED: MEPERIDINE HCL/PF INJ 25 MG/1 ML DISP.SYRIN IV PRN (09:39)
[2018-06-22] MEDS ORDERED: DIPHENHYDRAMINE HCL 50 MG/ML VIAL IV PRN (09:39)
[2018-06-22] MEDS ORDERED: BUPIVACAINE INJ/PF LIPOSOME/PF 266 MG/20 ML SDV ONE (09:41)
[2018-06-22] MEDS: DOCUSATE SODIUM 100 MG CAPSULE PO SCH ×2 (10:00→17:08)
[2018-06-22] MEDS: NAPROXEN 375 MG TABLET PO SCH ×2 (10:00→17:08)
[2018-06-22] MEDS: MINERAL OIL/PETROLATUM,WHITE CREAM 114 GM TP SCH (10:00)
[2018-06-22] MEDS: POLYETHYLENE GLYCOL 3350 POWDER 17 GM/1 PACKET PO SCH (10:00)
[2018-06-22] MEDS ORDERED: CEFAZOLIN SODIUM 2 GM in DEXTROSE 5%-WATER 100 ML IV PRN (10:08)
--- NOTE | 2018-06-22 10:28 | Operative Report ---
Operative Report DATE OF SURGERY: 06/22/18 PREOPERATIVE DIAGNOSIS: Septic right foot status post multiple debridements and toe amputations POSTOPERATIVE DIAGNOSIS: Same OPERATION: Right [id number] mid lower leg amputation with closure SURGEON: MARICRUZ GALINDO ANESTHESIA: GA TISSUE REMOVED OR ALTERED: Right foot and lower leg COMPLICATIONS: None ESTIMATED BLOOD LOSS: 250 cc INTRAOPERATIVE FINDINGS: See below PROCEDURE: Patient was seen in the preop holding area with her right leg was marked. He was then taken to the main operating room where an attempt was made in inducing spinal anesthesia. Because of history of spinal stenosis, this attempt was aborted. The patient was subsequently placed in supine position and general anesthesia was induced. The right foot, previously wrapped with dressings, was isolated with a co-band and a Ioban drape. The right lower leg, knee and thigh were exposed, prepped and draped in sterile fashion. Surgical plan surgical timeout were conducted. Markings were made on the skin for a mid right lower leg below the knee amputation. The posterior flap was 1-1/2 times the length of the anterior flap. Skin was cut with #10 blade, subcutaneous tissue fascia and muscle divided with electrocautery. Superficial veins including saphenous vein ligated as encountered. The periosteum surrounding the tibia and fibula was elevated with the periosteal elevator. Both bones were transected using the oscillating saw. Anterior, posterior tibial and peroneal neurovascular bundles were ligated as encountered with 0 Vicryl suture. The remaining muscles posterior were divided with electrocautery and the limb freely removed from the operating field and sent to pathology. Meticulous hemostasis was insured with electrocautery and small clips. All muscle was healthy, with no evidence of ischemia, or infection. There was no bleeding from the bone marrow. A layered myodesis was performed using 2-0 Vicryl suture in an ice pad for a BKA stump. Subcutaneous tissue was approximated in a running fashion with 3-0 Vicryl and skin closed with multiple keven. 20 cc of full-strength Exparel deployed in the wound. The wound wrapped with Xeroform 4 x 4's Kerlix and Deepak wrap. Patient tolerated procedure well. He remained hemodynamically stable. Estimated blood loss was 200 cc. Patient was awakened and taken to recovery room in stable condition
[2018-06-22] MEDS: FENTANYL CITRATE INJ/PF 100 MCG/2 ML AMPUL ONE ×2 (10:40→10:45)
[2018-06-22] MEDS ORDERED: KETOROLAC TROMETHAMINE INJ/PF 30 MG/1 ML SDV IV PRN (11:09)
[2018-06-22] MEDS ORDERED: ACETAMINOPHEN INJ/PF 1000 MG/100 ML SDV IV SCH (12:00)
[2018-06-22] MEDS: AMLODIPINE BESYLATE 5 MG TABLET PO SCH (12:15)
[2018-06-22] MEDS: ONDANSETRON HCL INJ/PF 4 MG/2 ML SDV IV PRN (12:15)
[2018-06-22] MEDS: LISINOPRIL 10 MG TABLET PO SCH (12:16)
[2018-06-22] MEDS: KETOROLAC TROMETHAMINE 10 MG TABLET PO PRN (12:16)
[2018-06-22] MEDS: ACETAMINOPHEN 1,000 MG/100 ML RTUPB IV SCH ×2 (12:18→17:09)
[2018-06-22] MEDS ORDERED: SUCCINYLCHOLINE CHLORIDE INJ 200 MG/10 ML VIAL ONE (14:20)
[2018-06-22] MEDS ORDERED: ONDANSETRON HCL INJ/PF 4 MG/2 ML SDV ONE (14:20)
[2018-06-22] MEDS ORDERED: GLYCOPYRROLATE 1 MG/5 ML SYRINGE ONE (14:20)
[2018-06-22] MEDS ORDERED: METOCLOPRAMIDE HCL INJ/PF 10 MG/2 ML SDV ONE (14:20)
[2018-06-22] MEDS ORDERED: LIDOCAINE 2% INJ-PF (20 MG/ML) 2 ML AMPUL ONE (14:20)
[2018-06-22] MEDS: LIDOCAINE 5% (700 MG) TRANSDERMAL ADH..PATCH TP SCH (16:43)
[2018-06-22] MEDS: IRON SUCROSE COMPLEX INJ/PF 100 MG/5 ML SDV IV SCH (17:09)
--- NOTE | 2018-06-22 17:33 | PDOC PROGRESS REPORT ---
Subjective Progress Note for:: 06/22/18 Subjective:: The patient is a 57-year-old male with a past medical history of hypertension, hyperlipidemia, diabetes mellitus, chronic foot ulcer (well-known to our service), depression, substance abuse, and tobacco dependency who was admitted 06/08/2018 for acute urinary retention, uncontrolled diabetes mellitus, diabetic foot wound. He is now postop a right below the knee amputation by Dr. Woo today. The patient was seen on morning rounds. He was found resting in bed comfortably on room air following his BKA today. He is very agitated and refuses to talk to me; pointedly looks away when I asked him how he is doing and if I may examine him. He does finally nod his head yes and tells me to "hurry it up." ROS is limited secondary to patient participation. He appears comfortable at present and is not noted to be in any acute distress. No concerns per nursing. Reason For Visit: LEUKOCYTOSIS Physical Exam Vital Signs: Temp Pulse Resp BP Pulse Ox 97.3 F 61 14 180/74 H 97 06/22/18 13:30 06/22/18 13:30 06/22/18 13:30 06/22/18 13:30 06/22/18 13:30 Intake & Output 06/21/18 06/22/18 06/23/18 06:59 06:59 06:59 Intake Total 1413 1306 1800 Output Total 1000 775 850 Balance 413 531 950 Weight 75.4 kg General appearance: PRESENT: no acute distress, well-developed, well-nourished Head exam: PRESENT: atraumatic, normocephalic Eye exam: PRESENT: conjunctiva pink, EOMI, PERRLA. ABSENT: scleral icterus Ear exam: PRESENT: normal external ear exam Mouth exam: PRESENT: moist, tongue midline Neck exam: PRESENT: full ROM. ABSENT: JVD Respiratory exam: PRESENT: clear to auscultation manuel, symmetrical, unlabored. ABSENT: rales, rhonchi, wheezes Cardiovascular exam: PRESENT: RRR. ABSENT: diastolic murmur, rubs, systolic murmur Pulses: PRESENT: normal radial pulses Vascular exam: PRESENT: normal capillary refill Rectal exam: PRESENT: deferred Extremities exam: PRESENT: full ROM, other - New right BKA; surgical dressing is clean dry and intact. ABSENT: calf tenderness, clubbing, pedal edema Neurological exam: PRESENT: alert, awake, oriented to person, oriented to place, oriented to time, oriented to situation, CN II-XII grossly intact. ABSENT: motor sensory deficit Psychiatric exam: PRESENT: agitated, flat affect. ABSENT: homicidal ideation, suicidal ideation Skin exam: PRESENT: dry, intact, warm. ABSENT: cyanosis, rash Results Laboratory Results: 06/21/18 07:00 06/21/18 07:00 Impressions: KUB X-Ray 06/13/18 06:00 IMPRESSION: NO RADIOGRAPHIC EVIDENCE FOR ACUTE ABDOMINAL DISEASE. Marked constipation. Guidance Fluoroscopy 06/14/18 00:00 IMPRESSION: SUCCESSFUL PLACEMENT OF A 5 FR DUAL LUMEN 36 CM PICC IN THE LEFT BASILIC VEIN. Interventional Vascular Procedure 06/14/18 00:00 IMPRESSION: SUCCESSFUL PLACEMENT OF A 5 FR DUAL LUMEN 36 CM PICC IN THE LEFT BASILIC VEIN. PICC Line Insertion 06/14/18 00:00 IMPRESSION: SUCCESSFUL PLACEMENT OF A 5 FR DUAL LUMEN 36 CM PICC IN THE LEFT BASILIC VEIN. Foot X-Ray 06/18/18 00:00 IMPRESSION: Findings consistent with osteomyelitis in the surgical bed. Assessment & Plan - Diagnosis (1) Candiduria Is this a current diagnosis for this admission?: Yes Plan: Patient is completed a course of fluconazole. (2) Diabetic infection of right foot Is this a current diagnosis for this admission?: Yes Plan: Now status post right BKA by Dr. Woo today. Wound care per surgery's expertise. Physical therapy is consulted. Discharge planning is consulted. (3) Iron deficiency anemia Is this a current diagnosis for this admission?: Yes Plan: Patient is noted to have iron deficiency anemia; continues to receive IV iron every other day. Has received 4 of 5 doses. He has received 4 units PRBC. Hemoglobin is currently stable at 9.8 No evidence of active bleeding. Continue IV iron infusions; then transition to p.o. ferrous sulfate supplementation. Will order multivitamin. clinical unit educator and registered dietitian are consulted. (4) Bacteremia Is this a current diagnosis for this admission?: Yes Plan: MSSA bacteremia (4 out of 4 bottles). Now status post right BKA which is removed the source of his bacteremia. Continue IV Ancef; should clear rapidly now that source has been eliminated. (5) Diabetes mellitus Qualifiers: Diabetes mellitus type: type 2 Diabetes mellitus emt intermediate insulin use: with emt intermediate use Diabetes mellitus complication status: with skin complications Diabetes mellitus complication detail: with foot ulcer Qualified Code(s): E11.621 - Type 2 diabetes mellitus with foot ulcer; L97.509 - Non-pressure chronic ulcer of other part of unspecified foot with unspecified severity; L97.509 - Non-pressure chronic ulcer of other part of unspecified foot with unspecified severity; L97.509 - Non-pressure chronic ulcer of other part of unspecified foot with unspecified severity; L97.509 - Non-pressure chronic ulcer of other part of unspecified foot with unspecified severity; Z79.4 - long-term (current) use of insulin; Z79.4 - terminal gauger supervisor (current) use of insulin; Z79.4 - terminal gauger supervisor (current) use of insulin; Z79.4 - long-term (current) use of insulin Is this a current diagnosis for this admission?: Yes Plan: A1c 13.9% (05/09) Patient is placed on a consistent carb diet. Accu-Cheks before meals and at bedtime with Humalog for sliding scale coverage. Insulin 70/30; 14 units twice daily with meals. Registered dietitian and life educator are consulted. (6) HTN (hypertension) Qualifiers: Hypertension type: unspecified secondary hypertension Qualified Code(s): I15.9 - Secondary hypertension, unspecified; I15 - Secondary hypertension Is this a current diagnosis for this admission?: Yes Plan: Blood pressures remain persistently elevated; 150/79 today. Continue lisinopril 10 mg daily. Will increase amlodipine to 10 mg daily. IV hydralazine as needed for blood pressure control. - Time Time Spent with patient: 15-24 minutes Medications reviewed and adjusted accordingly: Yes Anticipated discharge: SNF
[2018-06-22] MEDS ORDERED: CEFAZOLIN 2 GM/D5W RTU 2 GM/50 ML RTUPB IV SCH (18:00)
[2018-06-22] MEDS ORDERED: CEFAZOLIN 2 GM/D5W RTU 2 GM/50 ML RTUPB IV ONE (21:30)
[2018-06-22] MEDS ORDERED: CEFAZOLIN 1 GM/D5W RTU 4 GM/200 ML RTUPB IV ONE (21:40)
[2018-06-22] MEDS: INSULIN LISPRO 100 UNIT/ML 3 ML VIAL SUBCUT PRN (22:07)
[2018-06-23] MEDS ORDERED: CEFAZOLIN 2 GM/D5W RTU 2 GM/50 ML RTUPB IV SCH (03:00)
[2018-06-23] MEDS: ACETAMINOPHEN 1,000 MG/100 ML RTUPB IV SCH ×4 (05:15→17:29)
[2018-06-23] MEDS: LACTULOSE SYRUP 20 GM/30 ML UDCUP PO SCH ×3 (05:42→21:38)
[2018-06-23] MEDS: HEPARIN SOD (PORCINE) 5,000 UNIT/ML 1 ML SYRINGE SUBCUT SCH ×3 (05:42→21:38)
[2018-06-23] MEDS: HUM INSULIN NPH/REG INSULIN HM 100 UNIT/1 ML 3 ML SUBCUT SCH ×2 (08:21→16:31)
[2018-06-23] MEDS: LIDOCAINE 5% (700 MG) TRANSDERMAL ADH..PATCH TP SCH (08:22)
[2018-06-23] MEDS: NAPROXEN 375 MG TABLET PO SCH ×2 (08:22→16:44)
[2018-06-23] MEDS: DOCUSATE SODIUM 100 MG CAPSULE PO SCH ×2 (08:22→17:29)
[2018-06-23] MEDS: NORMAL SALINE 10 ML SDV (SCHEDULED) IV SCH ×2 (08:23→21:32)
[2018-06-23] MEDS: MORPHINE SULFATE SR 15 MG TABLET PO SCH ×2 (08:23→21:38)
[2018-06-23] MEDS: FAMOTIDINE 20 MG TABLET PO SCH ×2 (08:23→21:38)
[2018-06-23] MEDS: LISINOPRIL 10 MG TABLET PO SCH (08:23)
[2018-06-23] MEDS: MINERAL OIL/PETROLATUM,WHITE CREAM 114 GM TP SCH (09:06)
[2018-06-23] MEDS: POLYETHYLENE GLYCOL 3350 POWDER 17 GM/1 PACKET PO SCH (09:06)
[2018-06-23] MEDS: CEFAZOLIN SODIUM 2 GM in DEXTROSE 5%-WATER 100 ML IV SCH ×3 (09:40→21:38)
[2018-06-23] MEDS: AMLODIPINE BESYLATE 5 MG TABLET PO SCH (09:40)
[2018-06-23] MEDS ORDERED: MAGNESIUM CITRATE 296 ML BOTTLE PO ONE (11:02)
--- NOTE | 2018-06-23 11:02 | PDOC PROGRESS REPORT ---
Subjective Progress Note for:: 06/23/18 Reason For Visit: LEUKOCYTOSIS Physical Exam Vital Signs: Temp Pulse Resp BP Pulse Ox 98.6 F 64 16 168/74 H 95 06/23/18 07:44 06/23/18 07:44 06/23/18 07:44 06/23/18 07:44 06/23/18 07:44 Intake & Output 06/22/18 06/23/18 06/24/18 06:59 06:59 06:59 Intake Total 1306 3346 100 Output Total 775 1175 Balance 531 2171 100 Weight 75.2 kg General appearance: PRESENT: no acute distress Respiratory exam: PRESENT: clear to auscultation manuel Cardiovascular exam: PRESENT: RRR GI/Abdominal exam: PRESENT: distended, firm Extremities exam: PRESENT: other - right lower extremity dressing intact without any evidence of bleeding Results Laboratory Results: 06/21/18 07:00 06/21/18 07:00 Impressions: KUB X-Ray 06/13/18 06:00 IMPRESSION: NO RADIOGRAPHIC EVIDENCE FOR ACUTE ABDOMINAL DISEASE. Marked constipation. Guidance Fluoroscopy 06/14/18 00:00 IMPRESSION: SUCCESSFUL PLACEMENT OF A 5 FR DUAL LUMEN 36 CM PICC IN THE LEFT BASILIC VEIN. Interventional Vascular Procedure 06/14/18 00:00 IMPRESSION: SUCCESSFUL PLACEMENT OF A 5 FR DUAL LUMEN 36 CM PICC IN THE LEFT BASILIC VEIN. PICC Line Insertion 06/14/18 00:00 IMPRESSION: SUCCESSFUL PLACEMENT OF A 5 FR DUAL LUMEN 36 CM PICC IN THE LEFT BASILIC VEIN. Foot X-Ray 06/18/18 00:00 IMPRESSION: Findings consistent with osteomyelitis in the surgical bed. Assessment & Plan - Diagnosis (1) Diabetic infection of right foot Is this a current diagnosis for this admission?: Yes - Plan Summary Plan Summary: Patient status post right below the knee amputation for diabetic foot infection that did not respond to medical treatment This morning he has a somewhat distended abdomen and complains of bowel movement for a number of days Plan we will order a physical therapy and will order magnesium citrate for the constipation
--- NOTE | 2018-06-23 14:09 | PDOC PROGRESS REPORT ---
Subjective Progress Note for:: 06/23/18 Subjective:: Patient is resting comfortably in bed. Postop day 2 from right below-knee amputation. Still reports phantom pain. Still struggling with constipation. Reason For Visit: LEUKOCYTOSIS Physical Exam Vital Signs: Temp Pulse Resp BP Pulse Ox 98.6 F 64 16 168/74 H 95 06/23/18 07:44 06/23/18 07:44 06/23/18 07:44 06/23/18 07:44 06/23/18 07:44 Intake & Output 06/22/18 06/23/18 06/24/18 06:59 06:59 06:59 Intake Total 1306 3346 200 Output Total 775 1175 Balance 531 2171 200 Weight 75.2 kg General appearance: PRESENT: no acute distress, cooperative, well-developed Head exam: PRESENT: normocephalic Respiratory exam: PRESENT: clear to auscultation manuel, symmetrical, unlabored. ABSENT: rales, rhonchi, wheezes Cardiovascular exam: PRESENT: RRR, +S1, +S2, systolic murmur - 2/6 GI/Abdominal exam: PRESENT: normal bowel sounds, soft. ABSENT: distended, tenderness Extremities exam: PRESENT: other - New right below-knee amputation with dressing in place Neurological exam: PRESENT: alert, awake, oriented to person, oriented to place, oriented to time, oriented to situation, CN II-XII grossly intact Psychiatric exam: PRESENT: appropriate affect, normal mood. ABSENT: agitated, anxious Focused psych exam: ABSENT: restlessness Results Laboratory Results: 06/21/18 07:00 06/21/18 07:00 Impressions: KUB X-Ray 06/13/18 06:00 IMPRESSION: NO RADIOGRAPHIC EVIDENCE FOR ACUTE ABDOMINAL DISEASE. Marked constipation. Guidance Fluoroscopy 06/14/18 00:00 IMPRESSION: SUCCESSFUL PLACEMENT OF A 5 FR DUAL LUMEN 36 CM PICC IN THE LEFT BASILIC VEIN. Interventional Vascular Procedure 06/14/18 00:00 IMPRESSION: SUCCESSFUL PLACEMENT OF A 5 FR DUAL LUMEN 36 CM PICC IN THE LEFT BASILIC VEIN. PICC Line Insertion 06/14/18 00:00 IMPRESSION: SUCCESSFUL PLACEMENT OF A 5 FR DUAL LUMEN 36 CM PICC IN THE LEFT BASILIC VEIN. Foot X-Ray 06/18/18 00:00 IMPRESSION: Findings consistent with osteomyelitis in the surgical bed. Assessment & Plan - Diagnosis (1) Bacteremia Is this a current diagnosis for this admission?: Yes Plan: From right foot infection. Now that he has had the amputation there is no longer a source. There is no longer a need for the antibiotic therapy. Bacteremia has resolved. (2) Diabetic foot ulcer Qualifiers: Diabetic foot ulcer location: midfoot Diabetes mellitus type: type 2 Laterality: right Non-pressure ulcer stage: with necrosis of muscle Qualified Code(s): E11.621 - Type 2 diabetes mellitus with foot ulcer; L97.413 - Non-pressure chronic ulcer of right heel and midfoot with necrosis of muscle Is this a current diagnosis for this admission?: Yes Plan: Successful right below-knee amputation (3) Candiduria Is this a current diagnosis for this admission?: Yes Plan: Resolved (4) Uncontrolled type 2 diabetes mellitus Qualifiers: Glycemic state: with hyperglycemia Qualified Code(s): E11.65 - Type 2 diabetes mellitus with hyperglycemia Is this a current diagnosis for this admission?: Yes Plan: Occasional sugar still greater than 200. We will monitor for another day before changing. The recent surgery likely is contributing. (5) Left shoulder pain Qualifiers: Chronicity: unspecified Qualified Code(s): M25.512 - Pain in left shoulder Is this a current diagnosis for this admission?: Yes Plan: Continue Lidoderm patch (6) HTN (hypertension) Qualifiers: Hypertension type: unspecified secondary hypertension Qualified Code(s): I15.9 - Secondary hypertension, unspecified; I15 - Secondary hypertension Is this a current diagnosis for this admission?: Yes Plan: Still with mildly elevated systolic pressure. Consider adjustment in medications. (7) Constipation Qualifiers: Constipation type: drug induced constipation Qualified Code(s): K59.03 - Drug induced constipation Is this a current diagnosis for this admission?: Yes Plan: Still an issue. I have ordered 10 mg of Dulcolax p.o. in addition to his current regimen. This was effective last time. (8) Iron deficiency anemia Is this a current diagnosis for this admission?: Yes Plan: When intravenous iron therapy is completed add oral iron supplement. - Time Time Spent with patient: 15-24 minutes Medications reviewed and adjusted accordingly: Yes
[2018-06-23] MEDS ORDERED: BISACODYL 5 MG TABEC PO ONE (17:15)
[2018-06-23] MEDS: TRAZODONE HCL 50 MG TABLET PO SCH (21:32)
[2018-06-24] MEDS: KETOROLAC TROMETHAMINE 10 MG TABLET PO PRN ×2 (02:15→14:43)
[2018-06-24] MEDS: CEFAZOLIN SODIUM 2 GM in DEXTROSE 5%-WATER 100 ML IV SCH ×2 (02:19→09:34)
[2018-06-24] MEDS: HEPARIN SOD (PORCINE) 5,000 UNIT/ML 1 ML SYRINGE SUBCUT SCH ×3 (05:52→21:36)
[2018-06-24] MEDS: ACETAMINOPHEN 1,000 MG/100 ML RTUPB IV SCH ×5 (05:52→23:45)
[2018-06-24] MEDS: LACTULOSE SYRUP 20 GM/30 ML UDCUP PO SCH ×3 (05:52→21:36)
[2018-06-24] MEDS: POLYETHYLENE GLYCOL 3350 POWDER 17 GM/1 PACKET PO SCH ×2 (09:35→17:31)
[2018-06-24] MEDS: LISINOPRIL 10 MG TABLET PO SCH (09:35)
[2018-06-24] MEDS: MORPHINE SULFATE SR 15 MG TABLET PO SCH ×2 (09:35→21:32)
[2018-06-24] MEDS: DOCUSATE SODIUM 100 MG CAPSULE PO SCH ×2 (09:35→17:31)
[2018-06-24] MEDS: FAMOTIDINE 20 MG TABLET PO SCH ×2 (09:35→21:36)
[2018-06-24] MEDS: AMLODIPINE BESYLATE 5 MG TABLET PO SCH (09:35)
[2018-06-24] MEDS: NORMAL SALINE 10 ML SDV (SCHEDULED) IV SCH ×2 (09:37→21:33)
[2018-06-24] MEDS: MINERAL OIL/PETROLATUM,WHITE CREAM 114 GM TP SCH (09:37)
[2018-06-24] MEDS: LIDOCAINE 5% (700 MG) TRANSDERMAL ADH..PATCH TP SCH (09:39)
[2018-06-24] MEDS: NAPROXEN 375 MG TABLET PO SCH ×2 (09:39→17:34)
--- NOTE | 2018-06-24 11:18 | PDOC PROGRESS REPORT ---
Subjective Progress Note for:: 06/24/18 Subjective:: Sleepy this morning. Did not sleep well last night. Lopez catheter intervention and vital signs woke him. Reason For Visit: LEUKOCYTOSIS Physical Exam Vital Signs: Temp Pulse Resp BP Pulse Ox 98.8 F 72 18 168/74 H 96 06/24/18 08:33 06/24/18 08:33 06/24/18 08:33 06/24/18 08:33 06/24/18 08:33 Intake & Output 06/23/18 06/24/18 06/25/18 06:59 06:59 06:59 Intake Total 3346 1230 300 Output Total 1175 2070 Balance 2171 -840 300 Weight 75.2 kg 75.8 kg General appearance: PRESENT: no acute distress, cooperative, other - Somewhat sleepy Head exam: PRESENT: normocephalic Neck exam: PRESENT: full ROM. ABSENT: lymphadenopathy Respiratory exam: PRESENT: clear to auscultation maunel, symmetrical, unlabored. ABSENT: rales, rhonchi, wheezes Cardiovascular exam: PRESENT: RRR, +S1, +S2, systolic murmur - 2/6 GI/Abdominal exam: PRESENT: diminished bowel sounds, distended, soft. ABSENT: tenderness Gentrourinary exam: PRESENT: indwelling catheter Extremities exam: PRESENT: other - New right below-knee amputation Musculoskeletal exam: ABSENT: ambulatory Neurological exam: PRESENT: alert, awake, oriented to person, oriented to place, oriented to time, oriented to situation, CN II-XII grossly intact Psychiatric exam: PRESENT: flat affect. ABSENT: agitated Results Laboratory Results: 06/21/18 07:00 06/21/18 07:00 Impressions: KUB X-Ray 06/13/18 06:00 IMPRESSION: NO RADIOGRAPHIC EVIDENCE FOR ACUTE ABDOMINAL DISEASE. Marked constipation. Guidance Fluoroscopy 06/14/18 00:00 IMPRESSION: SUCCESSFUL PLACEMENT OF A 5 FR DUAL LUMEN 36 CM PICC IN THE LEFT BASILIC VEIN. Interventional Vascular Procedure 06/14/18 00:00 IMPRESSION: SUCCESSFUL PLACEMENT OF A 5 FR DUAL LUMEN 36 CM PICC IN THE LEFT BASILIC VEIN. PICC Line Insertion 06/14/18 00:00 IMPRESSION: SUCCESSFUL PLACEMENT OF A 5 FR DUAL LUMEN 36 CM PICC IN THE LEFT BASILIC VEIN. Foot X-Ray 06/18/18 00:00 IMPRESSION: Findings consistent with osteomyelitis in the surgical bed. Assessment & Plan - Diagnosis (1) Bacteremia Is this a current diagnosis for this admission?: Yes Plan: Now that the etiology of the infection has been removed I will discontinue the Ancef. I will repeat blood cultures to ensure that there is no (2) Uncontrolled type 2 diabetes mellitus Qualifiers: Glycemic state: with hyperglycemia Qualified Code(s): E11.65 - Type 2 diabetes mellitus with hyperglycemia Is this a current diagnosis for this admission?: Yes Plan: All glucoses for the last 48 hours have been under 200. Continue same regimen. (3) Left shoulder pain Qualifiers: Chronicity: unspecified Qualified Code(s): M25.512 - Pain in left shoulder Is this a current diagnosis for this admission?: Yes Plan: Continue Lidoderm patch (4) HTN (hypertension) Qualifiers: Hypertension type: unspecified secondary hypertension Qualified Code(s): I15.9 - Secondary hypertension, unspecified; I15 - Secondary hypertension Is this a current diagnosis for this admission?: Yes Plan: Continue to monitor blood pressure. Adjust medications if needed. (5) Constipation Qualifiers: Constipation type: drug induced constipation Qualified Code(s): K59.03 - Drug induced constipation Is this a current diagnosis for this admission?: Yes Plan: Increase MiraLAX to twice a day. As needed medications also available. (6) Iron deficiency anemia Is this a current diagnosis for this admission?: Yes Plan: Complete IV iron as ordered. (7) Diabetic foot ulcer Qualifiers: Diabetic foot ulcer location: midfoot Diabetes mellitus type: type 2 Laterality: right Non-pressure ulcer stage: with necrosis of muscle Qualified Code(s): E11.621 - Type 2 diabetes mellitus with foot ulcer; L97.413 - Non-pressure chronic ulcer of right heel and midfoot with necrosis of muscle Is this a current diagnosis for this admission?: Yes Plan: Resolved with amputation (8) Candiduria Is this a current diagnosis for this admission?: Yes Plan: Resolved. New Lopez catheter placed last night. - Time Time Spent with patient: 15-24 minutes Medications reviewed and adjusted accordingly: Yes Anticipated discharge: SNF
[2018-06-24] MEDS: HUM INSULIN NPH/REG INSULIN HM 100 UNIT/1 ML 3 ML SUBCUT SCH ×2 (13:47→17:35)
[2018-06-24 15:35] LABS: HEMATOCRIT 26.5 % (37.9-51.0); HEMOGLOBIN 8.5 g/dL (13.5-17.0); MEAN CORPUSCULAR HGB CONC 32.1 g/dL (32.0-36.0); MEAN CORPUSCULAR VOLUME 81 fl (80-97); PLATELET COUNT 324 10^3/uL (150-450); RED BLOOD COUNT 3.27 10^6/uL (4.35-5.55); RED CELL DISTRIBUTION WIDTH 19.4 % (11.5-14.0); WHITE BLOOD COUNT 9.4 10^3/uL (4.0-10.5)
[2018-06-24 15:46] LABS: ANION GAP 6 (5-19); BLOOD UREA NITROGEN 21 mg/dL (7-20); CALCIUM 7.7 mg/dL (8.4-10.2); CARBON DIOXIDE 29 mmol/L (22-30); CHLORIDE 104 mmol/L (98-107); GLUCOSE 213 mg/dL (75-110); POTASSIUM 4.3 mmol/L (3.6-5.0); SODIUM 138.7 mmol/L (137-145)
--- NOTE | 2018-06-24 17:01 | PDOC PROGRESS REPORT ---
Subjective Reason For Visit: LEUKOCYTOSIS Physical Exam Vital Signs: Temp Pulse Resp BP Pulse Ox 98.9 F 71 17 171/71 H 96 06/24/18 11:29 06/24/18 11:29 06/24/18 11:29 06/24/18 11:29 06/24/18 11:29 Intake & Output 06/23/18 06/24/18 06/25/18 06:59 06:59 06:59 Intake Total 3346 1230 500 Output Total 1175 2070 Balance 2171 -840 500 Weight 75.2 kg 75.8 kg Results Laboratory Results: 06/24/18 14:40 06/24/18 14:40 06/24/18 06/24/18 14:40 14:40 WBC 9.4 RBC 3.27 L Hgb 8.5 L Hct 26.5 L MCV 81 MCH 26.0 L MCHC 32.1 RDW 19.4 H Plt Count 324 Sodium 138.7 Potassium 4.3 Chloride 104 Carbon Dioxide 29 Anion Gap 6 BUN 21 H Creatinine 1.32 H Est GFR ( Amer) > 60 Est GFR (Non-Af Amer) 56 L Glucose 213 H Calcium 7.7 L Impressions: KUB X-Ray 06/13/18 06:00 IMPRESSION: NO RADIOGRAPHIC EVIDENCE FOR ACUTE ABDOMINAL DISEASE. Marked constipation. Guidance Fluoroscopy 06/14/18 00:00 IMPRESSION: SUCCESSFUL PLACEMENT OF A 5 FR DUAL LUMEN 36 CM PICC IN THE LEFT BASILIC VEIN. Interventional Vascular Procedure 06/14/18 00:00 IMPRESSION: SUCCESSFUL PLACEMENT OF A 5 FR DUAL LUMEN 36 CM PICC IN THE LEFT BASILIC VEIN. PICC Line Insertion 06/14/18 00:00 IMPRESSION: SUCCESSFUL PLACEMENT OF A 5 FR DUAL LUMEN 36 CM PICC IN THE LEFT BASILIC VEIN. Foot X-Ray 06/18/18 00:00 IMPRESSION: Findings consistent with osteomyelitis in the surgical bed. Assessment & Plan - Diagnosis (1) Diabetic infection of right foot Is this a current diagnosis for this admission?: Yes - Plan Summary Plan Summary: 57-year-old male status post right below-knee amputation for chronic osteomyelitis and diabetic foot infection. Patient is doing well today. He complains of phantom pain. I will add gabapentin to his medication regimen. Dressing is dry and intact. I have encouraged the patient to work on flexion and extension exercises. Aggressive pulmonary toilet.
[2018-06-24] MEDS: IRON SUCROSE COMPLEX INJ/PF 100 MG/5 ML SDV IV SCH (17:34)
[2018-06-24] MEDS: BISACODYL 5 MG TABEC PO PRN (17:45)
[2018-06-24] MEDS: GABAPENTIN 100 MG CAPSULE PO SCH (21:32)
[2018-06-24] MEDS: TRAZODONE HCL 50 MG TABLET PO SCH (21:32)
[2018-06-25] MEDS: GABAPENTIN 100 MG CAPSULE PO SCH ×3 (06:05→22:36)
[2018-06-25] MEDS: ACETAMINOPHEN 1,000 MG/100 ML RTUPB IV SCH ×3 (06:06→18:14)
[2018-06-25] MEDS: LACTULOSE SYRUP 20 GM/30 ML UDCUP PO SCH ×3 (06:37→18:10)
[2018-06-25] MEDS: HEPARIN SOD (PORCINE) 5,000 UNIT/ML 1 ML SYRINGE SUBCUT SCH ×3 (06:37→22:37)
[2018-06-25] MEDS: NAPROXEN 375 MG TABLET PO SCH ×2 (08:49→16:39)
[2018-06-25] MEDS: HUM INSULIN NPH/REG INSULIN HM 100 UNIT/1 ML 3 ML SUBCUT SCH ×2 (08:50→16:40)
--- NOTE | 2018-06-25 10:08 | PDOC PROGRESS REPORT ---
Subjective Progress Note for:: 06/25/18 Subjective:: No complaints; some phantom limb pain Reason For Visit: LEUKOCYTOSIS Physical Exam Vital Signs: Temp Pulse Resp BP Pulse Ox 98.5 F 61 16 147/63 H 97 06/25/18 07:24 06/25/18 07:24 06/25/18 07:24 06/25/18 07:24 06/25/18 07:24 Intake & Output 06/24/18 06/25/18 06/26/18 06:59 06:59 06:59 Intake Total 1230 1158 Output Total 2070 1480 Balance -840 -322 Weight 75.8 kg 76.5 kg General appearance: PRESENT: no acute distress Extremities exam: PRESENT: other - Dressing removed; flaps viable look very healthy no hematoma no foul smell drainage keven intact. Results Laboratory Results: 06/24/18 14:40 06/24/18 14:40 06/24/18 06/24/18 14:40 14:40 WBC 9.4 RBC 3.27 L Hgb 8.5 L Hct 26.5 L MCV 81 MCH 26.0 L MCHC 32.1 RDW 19.4 H Plt Count 324 Sodium 138.7 Potassium 4.3 Chloride 104 Carbon Dioxide 29 Anion Gap 6 BUN 21 H Creatinine 1.32 H Est GFR ( Amer) > 60 Est GFR (Non-Af Amer) 56 L Glucose 213 H Calcium 7.7 L Impressions: KUB X-Ray 06/13/18 06:00 IMPRESSION: NO RADIOGRAPHIC EVIDENCE FOR ACUTE ABDOMINAL DISEASE. Marked constipation. Guidance Fluoroscopy 06/14/18 00:00 IMPRESSION: SUCCESSFUL PLACEMENT OF A 5 FR DUAL LUMEN 36 CM PICC IN THE LEFT BASILIC VEIN. Interventional Vascular Procedure 06/14/18 00:00 IMPRESSION: SUCCESSFUL PLACEMENT OF A 5 FR DUAL LUMEN 36 CM PICC IN THE LEFT BASILIC VEIN. PICC Line Insertion 06/14/18 00:00 IMPRESSION: SUCCESSFUL PLACEMENT OF A 5 FR DUAL LUMEN 36 CM PICC IN THE LEFT BASILIC VEIN. Foot X-Ray 06/18/18 00:00 IMPRESSION: Findings consistent with osteomyelitis in the surgical bed. Assessment & Plan - Diagnosis (1) Diabetic infection of right foot Is this a current diagnosis for this admission?: Yes Plan: Patient is now 3 days status post right BKA, doing well, transferring with physical therapy; stump looks excellent at this point. Recommendations: 1. Will order dressing changes. 2. Leave keven in place 3. Patient can follow-up with Dr. [facility] in 1-2 weeks. 4. No indication for ongoing intravenous antibiotic therapy
[2018-06-25] MEDS: MINERAL OIL/PETROLATUM,WHITE CREAM 114 GM TP SCH (10:41)
[2018-06-25] MEDS: POLYETHYLENE GLYCOL 3350 POWDER 17 GM/1 PACKET PO SCH ×2 (10:44→18:09)
[2018-06-25] MEDS: LIDOCAINE 5% (700 MG) TRANSDERMAL ADH..PATCH TP SCH (10:45)
[2018-06-25] MEDS: FAMOTIDINE 20 MG TABLET PO SCH ×2 (10:45→22:36)
[2018-06-25] MEDS: MORPHINE SULFATE SR 15 MG TABLET PO SCH ×2 (10:45→22:36)
[2018-06-25] MEDS: LISINOPRIL 10 MG TABLET PO SCH (10:46)
[2018-06-25] MEDS: AMLODIPINE BESYLATE 5 MG TABLET PO SCH (10:46)
[2018-06-25] MEDS: DOCUSATE SODIUM 100 MG CAPSULE PO SCH ×2 (10:47→18:10)
[2018-06-25] MEDS: NORMAL SALINE 10 ML SDV (SCHEDULED) IV SCH ×2 (11:12→22:46)
--- NOTE | 2018-06-25 15:21 | PDOC PROGRESS REPORT ---
Subjective Progress Note for:: 06/25/18 Subjective:: Patient is sleeping but awakens easily. Very flat affect. Starting to worry about no bowel movement. Reason For Visit: LEUKOCYTOSIS Physical Exam Vital Signs: Temp Pulse Resp BP Pulse Ox 98.5 F 59 L 16 147/63 H 97 06/25/18 07:24 06/25/18 13:58 06/25/18 07:24 06/25/18 07:24 06/25/18 07:24 Intake & Output 06/24/18 06/25/18 06/26/18 06:59 06:59 06:59 Intake Total 1230 1158 100 Output Total 2070 1480 Balance -840 -322 100 Weight 75.8 kg 76.5 kg General appearance: PRESENT: no acute distress, cooperative Head exam: PRESENT: normocephalic Respiratory exam: PRESENT: clear to auscultation manuel, symmetrical, unlabored. ABSENT: rales, rhonchi, wheezes Cardiovascular exam: PRESENT: RRR, +S1, +S2, systolic murmur GI/Abdominal exam: PRESENT: distended, normal bowel sounds, soft. ABSENT: tenderness Extremities exam: PRESENT: other - Right stump with Deepak wrap Neurological exam: PRESENT: alert, awake, oriented to person, oriented to place, oriented to time, oriented to situation, CN II-XII grossly intact Psychiatric exam: PRESENT: flat affect. ABSENT: agitated, anxious Results Laboratory Results: 06/24/18 14:40 06/24/18 14:40 06/24/18 06/24/18 14:40 14:40 WBC 9.4 RBC 3.27 L Hgb 8.5 L Hct 26.5 L MCV 81 MCH 26.0 L MCHC 32.1 RDW 19.4 H Plt Count 324 Sodium 138.7 Potassium 4.3 Chloride 104 Carbon Dioxide 29 Anion Gap 6 BUN 21 H Creatinine 1.32 H Est GFR ( Amer) > 60 Est GFR (Non-Af Amer) 56 L Glucose 213 H Calcium 7.7 L Impressions: KUB X-Ray 06/13/18 06:00 IMPRESSION: NO RADIOGRAPHIC EVIDENCE FOR ACUTE ABDOMINAL DISEASE. Marked constipation. Guidance Fluoroscopy 06/14/18 00:00 IMPRESSION: SUCCESSFUL PLACEMENT OF A 5 FR DUAL LUMEN 36 CM PICC IN THE LEFT BASILIC VEIN. Interventional Vascular Procedure 06/14/18 00:00 IMPRESSION: SUCCESSFUL PLACEMENT OF A 5 FR DUAL LUMEN 36 CM PICC IN THE LEFT BASILIC VEIN. PICC Line Insertion 06/14/18 00:00 IMPRESSION: SUCCESSFUL PLACEMENT OF A 5 FR DUAL LUMEN 36 CM PICC IN THE LEFT BASILIC VEIN. Foot X-Ray 06/18/18 00:00 IMPRESSION: Findings consistent with osteomyelitis in the surgical bed. Assessment & Plan - Diagnosis (1) Uncontrolled type 2 diabetes mellitus Qualifiers: Glycemic state: with hyperglycemia Qualified Code(s): E11.65 - Type 2 diabetes mellitus with hyperglycemia Is this a current diagnosis for this admission?: Yes Plan: Accu-Cheks finally falling below 200. Continue current regimen. (2) Left shoulder pain Qualifiers: Chronicity: unspecified Qualified Code(s): M25.512 - Pain in left shoulder Is this a current diagnosis for this admission?: Yes Plan: Continue current regimen. Shoulder still hurts but it is tolerable. (3) HTN (hypertension) Qualifiers: Hypertension type: unspecified secondary hypertension Qualified Code(s): I15.9 - Secondary hypertension, unspecified; I15 - Secondary hypertension Is this a current diagnosis for this admission?: Yes Plan: Still slightly elevated systolic pressure. No changes in medications today. (4) Constipation Qualifiers: Constipation type: drug induced constipation Qualified Code(s): K59.03 - Drug induced constipation Is this a current diagnosis for this admission?: Yes Plan: Now worrisome with some abdominal distention. More aggressive regimen. Increase lactulose to every 6 hours. Continue MiraLAX twice daily. I have also ordered a Fleet mineral oil enema. (5) Iron deficiency anemia Is this a current diagnosis for this admission?: Yes Plan: Once his constipation is resolved I will start an iron supplement by mouth. (6) Candiduria Is this a current diagnosis for this admission?: Yes Plan: Resolved (7) Bacteremia Is this a current diagnosis for this admission?: Yes Plan: Resolved (8) Diabetic foot ulcer Qualifiers: Diabetic foot ulcer location: midfoot Diabetes mellitus type: type 2 Laterality: right Non-pressure ulcer stage: with necrosis of muscle Qualified Code(s): E11.621 - Type 2 diabetes mellitus with foot ulcer; L97.413 - Non-pressure chronic ulcer of right heel and midfoot with necrosis of muscle Is this a current diagnosis for this admission?: Yes Plan: Resolved with amputation (9) Depression, reactive Is this a current diagnosis for this admission?: Yes Plan: Herb is struggling. It was a very difficult decision to have the amputation surgery. His affect has been very flat. He has agreed to start a trial of antidepressant therapy. - Time Time Spent with patient: 15-24 minutes Medications reviewed and adjusted accordingly: Yes Anticipated discharge: SNF
[2018-06-25] MEDS ORDERED: MINERAL OIL ENEMA 133 ML PR ONE (16:00)
[2018-06-25] MEDS: SENNOSIDES/DOCUSATE 8.6-50 MG 1 EACH TABLET PO SCH (18:10)
[2018-06-25] MEDS: TRAZODONE HCL 50 MG TABLET PO SCH (22:36)
[2018-06-25] MEDS: VENLAFAXINE HCL 25 MG TABLET PO SCH (22:41)
[2018-06-26] MEDS: ACETAMINOPHEN 1,000 MG/100 ML RTUPB IV SCH ×4 (02:46→17:29)
[2018-06-26] MEDS: LACTULOSE SYRUP 20 GM/30 ML UDCUP PO SCH ×4 (02:47→17:12)
[2018-06-26] MEDS: GABAPENTIN 100 MG CAPSULE PO SCH ×3 (07:00→21:34)
[2018-06-26] MEDS: HEPARIN SOD (PORCINE) 5,000 UNIT/ML 1 ML SYRINGE SUBCUT SCH ×3 (07:01→21:36)
[2018-06-26] MEDS: MINERAL OIL/PETROLATUM,WHITE CREAM 114 GM TP SCH (10:10)
[2018-06-26] MEDS: POLYETHYLENE GLYCOL 3350 POWDER 17 GM/1 PACKET PO SCH ×2 (10:29→17:29)
[2018-06-26] MEDS: HUM INSULIN NPH/REG INSULIN HM 100 UNIT/1 ML 3 ML SUBCUT SCH ×2 (10:29→17:11)
[2018-06-26] MEDS: MORPHINE SULFATE SR 15 MG TABLET PO SCH ×2 (10:30→21:36)
[2018-06-26] MEDS: AMLODIPINE BESYLATE 5 MG TABLET PO SCH (10:30)
[2018-06-26] MEDS: FAMOTIDINE 20 MG TABLET PO SCH ×2 (10:30→21:34)
[2018-06-26] MEDS: SENNOSIDES/DOCUSATE 8.6-50 MG 1 EACH TABLET PO SCH ×2 (10:30→17:34)
[2018-06-26] MEDS: LISINOPRIL 10 MG TABLET PO SCH (10:30)
[2018-06-26] MEDS: NORMAL SALINE 10 ML SDV (SCHEDULED) IV SCH ×2 (10:31→21:37)
[2018-06-26] MEDS: DOCUSATE SODIUM 100 MG CAPSULE PO SCH ×2 (10:31→17:29)
[2018-06-26] MEDS: VENLAFAXINE HCL 25 MG TABLET PO SCH ×2 (10:31→21:36)
[2018-06-26] MEDS: LIDOCAINE 5% (700 MG) TRANSDERMAL ADH..PATCH TP SCH ×2 (10:32→10:47)
[2018-06-26] MEDS: NAPROXEN 375 MG TABLET PO SCH ×2 (10:32→17:33)
--- NOTE | 2018-06-26 11:02 | PDOC PROGRESS REPORT ---
Subjective Progress Note for:: 06/26/18 Subjective:: Patient is resting comfortably this morning still no bowel movement. He feels that he is getting close. Good pain control right amputation site. Reason For Visit: LEUKOCYTOSIS Physical Exam Vital Signs: Temp Pulse Resp BP Pulse Ox 97.8 F 58 L 16 160/80 H 97 06/26/18 03:20 06/26/18 07:00 06/26/18 03:20 06/26/18 03:20 06/26/18 03:20 Intake & Output 06/25/18 06/26/18 06/27/18 06:59 06:59 06:59 Intake Total 1158 1602 Output Total 1480 1300 Balance -322 302 Weight 76.5 kg 76.5 kg General appearance: PRESENT: no acute distress, cooperative, well-developed Head exam: PRESENT: normocephalic Teeth exam: PRESENT: poor dentation Respiratory exam: PRESENT: clear to auscultation manuel, symmetrical, unlabored. ABSENT: rales, rhonchi, wheezes Cardiovascular exam: PRESENT: RRR, +S1, +S2, systolic murmur - 2/6 GI/Abdominal exam: PRESENT: diminished bowel sounds, distended, soft. ABSENT: tenderness Extremities exam: PRESENT: other - New right below-knee amputation Neurological exam: PRESENT: alert, awake, oriented to person, oriented to place, oriented to time, oriented to situation, CN II-XII grossly intact Psychiatric exam: PRESENT: flat affect. ABSENT: agitated, anxious Focused psych exam: ABSENT: restlessness Results Laboratory Results: 06/24/18 14:40 06/24/18 14:40 Impressions: KUB X-Ray 06/13/18 06:00 IMPRESSION: NO RADIOGRAPHIC EVIDENCE FOR ACUTE ABDOMINAL DISEASE. Marked constipation. Guidance Fluoroscopy 06/14/18 00:00 IMPRESSION: SUCCESSFUL PLACEMENT OF A 5 FR DUAL LUMEN 36 CM PICC IN THE LEFT BASILIC VEIN. Interventional Vascular Procedure 06/14/18 00:00 IMPRESSION: SUCCESSFUL PLACEMENT OF A 5 FR DUAL LUMEN 36 CM PICC IN THE LEFT BASILIC VEIN. PICC Line Insertion 06/14/18 00:00 IMPRESSION: SUCCESSFUL PLACEMENT OF A 5 FR DUAL LUMEN 36 CM PICC IN THE LEFT BASILIC VEIN. Foot X-Ray 06/18/18 00:00 IMPRESSION: Findings consistent with osteomyelitis in the surgical bed. Assessment & Plan - Diagnosis (1) Uncontrolled type 2 diabetes mellitus Qualifiers: Glycemic state: with hyperglycemia Qualified Code(s): E11.65 - Type 2 diabetes mellitus with hyperglycemia Is this a current diagnosis for this admission?: Yes Plan: Most glucoses below 200. Because of his high healing needs I will increase him to a level 5 consistent carbohydrate diet. I am encouraging him to take his Glucerna as well. I will adjust his insulin based on his Accu-Cheks. (2) Left shoulder pain Qualifiers: Chronicity: unspecified Qualified Code(s): M25.512 - Pain in left shoulder Is this a current diagnosis for this admission?: Yes Plan: Continue Lidoderm and analgesia (3) HTN (hypertension) Qualifiers: Hypertension type: unspecified secondary hypertension Qualified Code(s): I15.9 - Secondary hypertension, unspecified; I15 - Secondary hypertension Is this a current diagnosis for this admission?: Yes Plan: Increase lisinopril to 20 mg. May need to add hydrochlorothiazide 12.5 mg. (4) Constipation Qualifiers: Constipation type: drug induced constipation Qualified Code(s): K59.03 - Drug induced constipation Is this a current diagnosis for this admission?: Yes Plan: Patient has not been compliant with the ordered regimen. I have ordered 20 mg of Dulcolax by mouth today and encouraged him to be compliant with his regimen. (5) Iron deficiency anemia Is this a current diagnosis for this admission?: Yes Plan: Add oral iron supplement when constipation is resolved. (6) Candiduria Is this a current diagnosis for this admission?: Yes Plan: Resolved (7) Bacteremia Is this a current diagnosis for this admission?: Yes Plan: Resolved (8) Diabetic foot ulcer Qualifiers: Diabetic foot ulcer location: midfoot Diabetes mellitus type: type 2 Laterality: right Non-pressure ulcer stage: with necrosis of muscle Qualified Code(s): E11.621 - Type 2 diabetes mellitus with foot ulcer; L97.413 - Non-pressure chronic ulcer of right heel and midfoot with necrosis of muscle Is this a current diagnosis for this admission?: Yes Plan: Resolved with amputation (9) Depression, reactive Is this a current diagnosis for this admission?: Yes Plan: Started on venlafaxine. - Time Time Spent with patient: 15-24 minutes Medications reviewed and adjusted accordingly: Yes Anticipated discharge: SNF
[2018-06-26] MEDS: TRAZODONE HCL 50 MG TABLET PO SCH (21:36)
[2018-06-27] MEDS: ACETAMINOPHEN 1,000 MG/100 ML RTUPB IV SCH ×4 (00:22→17:22)
[2018-06-27] MEDS: LACTULOSE SYRUP 20 GM/30 ML UDCUP PO SCH ×4 (00:22→17:21)
[2018-06-27] MEDS: MAG HYDROX/AL HYDROX/SIMETH SUSP 30 ML UDCUP PO PRN (04:08)
[2018-06-27] MEDS: HYDRALAZINE HCL INJ/PF 20 MG/1 ML SDV IV PRN ×2 (04:52→17:22)
[2018-06-27] MEDS: HEPARIN SOD (PORCINE) 5,000 UNIT/ML 1 ML SYRINGE SUBCUT SCH ×3 (05:31→21:56)
[2018-06-27] MEDS: GABAPENTIN 100 MG CAPSULE PO SCH ×3 (05:32→21:56)
[2018-06-27] MEDS: KETOROLAC TROMETHAMINE 10 MG TABLET PO PRN (05:36)
[2018-06-27] MEDS: ONDANSETRON HCL INJ/PF 4 MG/2 ML SDV IV PRN ×2 (05:37→11:49)
[2018-06-27] MEDS ORDERED: LACTULOSE SYRUP 20 GM/30 ML UDCUP PO ONE (05:59)
[2018-06-27] MEDS: NA PHOS,M-B/NA PHOS,DI-BA (ADULT) 133 ML ENEMA PR SCH ×3 (08:31→21:55)
[2018-06-27] MEDS: HUM INSULIN NPH/REG INSULIN HM 100 UNIT/1 ML 3 ML SUBCUT SCH ×2 (08:37→15:33)
[2018-06-27 08:57] LABS: CREATINE KINASE MB 1.16 ng/mL (<4.55)
[2018-06-27 09:02] LABS: TROPONIN I < 0.012 ng/mL
[2018-06-27] MEDS: NAPROXEN 375 MG TABLET PO SCH ×2 (09:03→17:21)
[2018-06-27] MEDS: VENLAFAXINE HCL 25 MG TABLET PO SCH ×2 (09:03→21:56)
[2018-06-27] MEDS: MINERAL OIL/PETROLATUM,WHITE CREAM 114 GM TP SCH (09:04)
[2018-06-27] MEDS: DOCUSATE SODIUM 100 MG CAPSULE PO SCH ×2 (09:04→17:21)
[2018-06-27] MEDS: POLYETHYLENE GLYCOL 3350 POWDER 17 GM/1 PACKET PO SCH ×2 (09:05→17:22)
[2018-06-27] MEDS: LIDOCAINE 5% (700 MG) TRANSDERMAL ADH..PATCH TP SCH (09:05)
[2018-06-27] MEDS: MORPHINE SULFATE SR 15 MG TABLET PO SCH ×2 (09:05→21:54)
[2018-06-27] MEDS: FAMOTIDINE 20 MG TABLET PO SCH ×2 (09:06→21:56)
[2018-06-27] MEDS: NORMAL SALINE 10 ML SDV (SCHEDULED) IV SCH ×2 (09:06→21:56)
[2018-06-27] MEDS: AMLODIPINE BESYLATE 5 MG TABLET PO SCH (09:06)
[2018-06-27] MEDS: SENNOSIDES/DOCUSATE 8.6-50 MG 1 EACH TABLET PO SCH ×2 (09:07→17:22)
[2018-06-27] MEDS: LISINOPRIL 10 MG TABLET PO SCH (09:07)
[2018-06-27 16:02] LABS: TROPONIN I < 0.012 ng/mL
--- NOTE | 2018-06-27 20:19 | PDOC PROGRESS REPORT ---
Subjective Progress Note for:: 06/27/18 Subjective:: states he's fine - doesn't really want to talk to me- looks away. became upset at me since i started to discuss about his discharge disposition- also doesn't want it finley out as i had discussed about possible voiding trial Reason For Visit: LEUKOCYTOSIS Physical Exam Vital Signs: Temp Pulse Resp BP Pulse Ox 97.8 F 71 16 173/86 H 95 06/27/18 15:00 06/27/18 15:00 06/27/18 15:00 06/27/18 15:00 06/27/18 15:00 Intake & Output 06/26/18 06/27/18 06/28/18 06:59 06:59 06:59 Intake Total 1602 965 Output Total 1300 2125 2125 Balance 302 -1160 -2125 Weight 168 lb 10.458 oz 184 lb 11.958 oz General appearance: PRESENT: no acute distress Head exam: PRESENT: atraumatic, normocephalic Eye exam: PRESENT: EOMI, PERRLA. ABSENT: scleral icterus Ear exam: PRESENT: normal external ear exam Mouth exam: PRESENT: tongue midline Neck exam: ABSENT: tracheal deviation Respiratory exam: PRESENT: clear to auscultation manuel, symmetrical Cardiovascular exam: PRESENT: +S1, +S2 GI/Abdominal exam: PRESENT: normal bowel sounds, soft. ABSENT: tenderness Extremities exam: ABSENT: pedal edema Musculoskeletal exam: PRESENT: other - right BKA noted with dressing and robert wra p Neurological exam: PRESENT: alert, awake, oriented to person, oriented to place, oriented to time, CN II-XII grossly intact Skin exam: PRESENT: dry, warm Results Laboratory Results: 06/24/18 14:40 06/24/18 14:40 06/27/18 06/27/18 06/27/18 06:30 06:30 15:15 Creatine Kinase 42 L 42 L CK-MB (CK-2) 1.16 Troponin I < 0.012 06/27/18 15:15 Creatine Kinase CK-MB (CK-2) 1.00 Troponin I < 0.012 Impressions: KUB X-Ray 06/13/18 06:00 IMPRESSION: NO RADIOGRAPHIC EVIDENCE FOR ACUTE ABDOMINAL DISEASE. Marked constipation. Guidance Fluoroscopy 06/14/18 00:00 IMPRESSION: SUCCESSFUL PLACEMENT OF A 5 FR DUAL LUMEN 36 CM PICC IN THE LEFT BASILIC VEIN. Interventional Vascular Procedure 06/14/18 00:00 IMPRESSION: SUCCESSFUL PLACEMENT OF A 5 FR DUAL LUMEN 36 CM PICC IN THE LEFT BASILIC VEIN. PICC Line Insertion 06/14/18 00:00 IMPRESSION: SUCCESSFUL PLACEMENT OF A 5 FR DUAL LUMEN 36 CM PICC IN THE LEFT BASILIC VEIN. Foot X-Ray 06/18/18 00:00 IMPRESSION: Findings consistent with osteomyelitis in the surgical bed. Assessment & Plan - Diagnosis (1) Acute urinary retention Is this a current diagnosis for this admission?: Yes (2) Diabetic infection of right foot Is this a current diagnosis for this admission?: Yes (3) UTI (urinary tract infection) Qualifiers: Urinary tract infection type: site unspecified Hematuria presence: with hematuria Qualified Code(s): N39.0 - Urinary tract infection, site not specified; R31.9 - Hematuria, unspecified; R31.9 - Hematuria, unspecified Is this a current diagnosis for this admission?: Yes (4) CKD stage 3 secondary to diabetes Is this a current diagnosis for this admission?: Yes (5) HTN (hypertension) Qualifiers: Hypertension type: unspecified secondary hypertension Qualified Code(s): I15.9 - Secondary hypertension, unspecified; I15 - Secondary hypertension Is this a current diagnosis for this admission?: Yes (6) MSSA bacteremia Is this a current diagnosis for this admission?: Yes - Plan Summary Plan Summary: Diabetic wound of the right foot- s/p BKA 06/22/18- doing well- c/w wound care and dressing changes as directed by surgery DM type 2- uncontrolled- A1c >13- c/w regimen- will adjust as needed Urinary retention- had a finley since admission- i spoke with him about voiding trial but he refuses- ?neurogenic bladder. will start him on flomax bid and then attempt finley removal in 24-48h UTI- resolved ZANE- resolved CKD- stage 3- likely 2/2 DM type 2 MSSA bacteremia- BCx now neg- finished Abx with Ancef. likely was from the right foot infection
[2018-06-27] MEDS: TAMSULOSIN HCL 0.4 MG CAP.SR.24H PO SCH (21:55)
[2018-06-27] MEDS: TRAZODONE HCL 50 MG TABLET PO SCH (21:56)
[2018-06-28] MEDS: LACTULOSE SYRUP 20 GM/30 ML UDCUP PO SCH ×4 (00:22→17:26)
[2018-06-28] MEDS: ACETAMINOPHEN 1,000 MG/100 ML RTUPB IV SCH ×2 (00:22→05:12)
[2018-06-28 02:05] LABS: CREATINE KINASE MB 0.81 ng/mL (<4.55)
[2018-06-28 02:10] LABS: TROPONIN I < 0.012 ng/mL
[2018-06-28] MEDS: HEPARIN SOD (PORCINE) 5,000 UNIT/ML 1 ML SYRINGE SUBCUT SCH ×3 (05:12→21:49)
[2018-06-28] MEDS: GABAPENTIN 100 MG CAPSULE PO SCH ×3 (05:12→21:54)
[2018-06-28] MEDS: INSULIN LISPRO 100 UNIT/ML 3 ML VIAL SUBCUT PRN (08:18)
[2018-06-28] MEDS: NAPROXEN 375 MG TABLET PO SCH ×2 (08:19→17:26)
[2018-06-28] MEDS: HUM INSULIN NPH/REG INSULIN HM 100 UNIT/1 ML 3 ML SUBCUT SCH ×2 (08:19→16:35)
[2018-06-28] MEDS: TAMSULOSIN HCL 0.4 MG CAP.SR.24H PO SCH ×2 (08:19→21:54)
[2018-06-28] MEDS: LIDOCAINE 5% (700 MG) TRANSDERMAL ADH..PATCH TP SCH (10:47)
[2018-06-28] MEDS: DOCUSATE SODIUM 100 MG CAPSULE PO SCH ×2 (10:47→17:26)
[2018-06-28] MEDS: NA PHOS,M-B/NA PHOS,DI-BA (ADULT) 133 ML ENEMA PR SCH ×2 (10:47→21:50)
[2018-06-28] MEDS: MORPHINE SULFATE SR 15 MG TABLET PO SCH ×2 (10:47→21:51)
[2018-06-28] MEDS: VENLAFAXINE HCL 25 MG TABLET PO SCH ×2 (10:47→21:54)
[2018-06-28] MEDS: LISINOPRIL 10 MG TABLET PO SCH (10:48)
[2018-06-28] MEDS: AMLODIPINE BESYLATE 5 MG TABLET PO SCH (10:48)
[2018-06-28] MEDS: SENNOSIDES/DOCUSATE 8.6-50 MG 1 EACH TABLET PO SCH ×2 (10:48→17:26)
[2018-06-28] MEDS: FAMOTIDINE 20 MG TABLET PO SCH ×2 (10:48→21:54)
[2018-06-28] MEDS: POLYETHYLENE GLYCOL 3350 POWDER 17 GM/1 PACKET PO SCH (10:49)
[2018-06-28] MEDS: MINERAL OIL/PETROLATUM,WHITE CREAM 114 GM TP SCH (11:00)
[2018-06-28] MEDS: NORMAL SALINE 10 ML SDV (SCHEDULED) IV SCH ×2 (11:01→21:55)
--- NOTE | 2018-06-28 15:40 | RADIOLOGY REPORT (SQ) ---
EXAM DESCRIPTION: ABDOMEN 2 VIEWS COMPLETED DATE/TIME: 06/28/2018 3:25 pm REASON FOR STUDY: abdominal pain and distension COMPARISON: 06/03/2018 NUMBER OF VIEWS: Two views. TECHNIQUE: Supine and erect/decubitus radiographic images of the abdomen acquired. LIMITATIONS: None. FINDINGS: FREE AIR: None. No abnormal gas collections. LUNG BASES: There is ill-defined opacification in the right base laterally. BOWEL GAS PATTERN: Nonobstructive gas pattern. Large amount of stool. CALCIFICATIONS: No suspicious calcifications. SOFT TISSUES: No gross mass or suggestion of organomegaly. HARDWARE: None in the abdomen. BONES: No acute fracture. No worrisome bone lesions. OTHER: No other significant finding. IMPRESSION: Constipation. Cannot exclude limited right lower lobe pneumonia. TECHNICAL DOCUMENTATION: JOB ID: [id number] [employer]- All Rights Reserved Reading location - IP/workstation name: [email or web address]
[2018-06-28] MEDS: BISACODYL 5 MG TABEC PO PRN (15:58)
--- NOTE | 2018-06-28 16:04 | PDOC PROGRESS REPORT ---
Subjective Progress Note for:: 06/28/18 Subjective:: states his epigastric region hurts- states its been hurting for a few days now- i asked him why he didnt mention this to me yesterday- states he didn't think it was important- states food makes it worse and he believes this is all due to constipation - states this the same kind of pain he gets when he gets constipated- he did refuse some of his bowel regimens today- i requested that he take them. Reason For Visit: LEUKOCYTOSIS Physical Exam Vital Signs: Temp Pulse Resp BP Pulse Ox 98.5 F 63 15 165/69 H 98 06/28/18 07:49 06/28/18 07:49 06/28/18 07:49 06/28/18 07:49 06/28/18 07:49 Intake & Output 06/27/18 06/28/18 06/29/18 06:59 06:59 06:59 Intake Total 965 250 Output Total 2125 2425 Balance -1160 -2175 Weight 184 lb 11.958 oz 178 lb 9.191 oz General appearance: PRESENT: no acute distress Head exam: PRESENT: atraumatic, normocephalic Eye exam: PRESENT: EOMI, PERRLA. ABSENT: scleral icterus Ear exam: PRESENT: normal external ear exam Mouth exam: PRESENT: tongue midline Neck exam: ABSENT: tracheal deviation Respiratory exam: PRESENT: clear to auscultation manuel, symmetrical Cardiovascular exam: PRESENT: +S1, +S2 Pulses: PRESENT: +1 pedal pulses bilateral - left GI/Abdominal exam: PRESENT: distended - slightly, normal bowel sounds, soft, tenderness - minimal TTP diffusely in all quadrants with some minimal distension Musculoskeletal exam: PRESENT: other - right BKA noted Neurological exam: PRESENT: alert, awake, oriented to person, oriented to place, oriented to time, oriented to situation, CN II-XII grossly intact Skin exam: PRESENT: dry, warm Results Laboratory Results: 06/24/18 14:40 06/24/18 14:40 06/23/18 04:40 Blood Blood Culture - Final NO GROWTH IN 5 DAYS 06/23/18 04:47 Blood Blood Culture - Final NO GROWTH IN 5 DAYS 06/27/18 06/27/18 06/27/18 06:30 06:30 15:15 Creatine Kinase 42 L 42 L CK-MB (CK-2) 1.16 Troponin I < 0.012 06/27/18 06/27/18 06/27/18 15:15 23:28 23:28 Creatine Kinase 33 L CK-MB (CK-2) 1.00 0.81 Troponin I < 0.012 < 0.012 Impressions: KUB X-Ray 06/13/18 06:00 IMPRESSION: NO RADIOGRAPHIC EVIDENCE FOR ACUTE ABDOMINAL DISEASE. Marked constipation. Guidance Fluoroscopy 06/14/18 00:00 IMPRESSION: SUCCESSFUL PLACEMENT OF A 5 FR DUAL LUMEN 36 CM PICC IN THE LEFT BASILIC VEIN. Interventional Vascular Procedure 06/14/18 00:00 IMPRESSION: SUCCESSFUL PLACEMENT OF A 5 FR DUAL LUMEN 36 CM PICC IN THE LEFT BASILIC VEIN. PICC Line Insertion 06/14/18 00:00 IMPRESSION: SUCCESSFUL PLACEMENT OF A 5 FR DUAL LUMEN 36 CM PICC IN THE LEFT BASILIC VEIN. Foot X-Ray 06/18/18 00:00 IMPRESSION: Findings consistent with osteomyelitis in the surgical bed. Abdomen X-Ray 06/28/18 00:00 IMPRESSION: Constipation. Cannot exclude limited right lower lobe pneumonia. Assessment & Plan - Diagnosis (1) Acute urinary retention Is this a current diagnosis for this admission?: Yes (2) Diabetic infection of right foot Is this a current diagnosis for this admission?: Yes (3) UTI (urinary tract infection) Qualifiers: Urinary tract infection type: site unspecified Hematuria presence: with hematuria Qualified Code(s): N39.0 - Urinary tract infection, site not specified; R31.9 - Hematuria, unspecified; R31.9 - Hematuria, unspecified Is this a current diagnosis for this admission?: Yes (4) CKD stage 3 secondary to diabetes Is this a current diagnosis for this admission?: Yes (5) HTN (hypertension) Qualifiers: Hypertension type: unspecified secondary hypertension Qualified Code(s): I15.9 - Secondary hypertension, unspecified; I15 - Secondary hypertension Is this a current diagnosis for this admission?: Yes (6) MSSA bacteremia Is this a current diagnosis for this admission?: Yes (7) Constipation Qualifiers: Constipation type: drug induced constipation Qualified Code(s): K59.03 - Drug induced constipation Is this a current diagnosis for this admission?: Yes - Plan Summary Plan Summary: Constipation- c/o abdominal pain- epigastric- on bowel regimen but he had refused a few- got an abdominal series today and shows constipation-and concern for RLL PNA- he's afebrile and doesn't have cough or SOB- will monitor for now. for his constipation i have asked him to take his medications as prescribed. 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 started him on Flomax today- will try and pull finley tomorrow- we need to give a voiding trial UTI- resolved ZANE- resolved CKD- stage 3- likely 2/2 DM type 2 MSSA bacteremia- BCx now neg- finished Abx with Ancef. likely was from the right foot infection
[2018-06-28] MEDS: TRAZODONE HCL 50 MG TABLET PO SCH (21:52)
[2018-06-29] MEDS: LACTULOSE SYRUP 20 GM/30 ML UDCUP PO SCH ×4 (03:36→18:03)
[2018-06-29] MEDS: NA PHOS,M-B/NA PHOS,DI-BA (ADULT) 133 ML ENEMA PR PRN ×2 (03:41→17:59)
[2018-06-29] MEDS: HEPARIN SOD (PORCINE) 5,000 UNIT/ML 1 ML SYRINGE SUBCUT SCH ×3 (05:51→21:42)
[2018-06-29] MEDS: GABAPENTIN 100 MG CAPSULE PO SCH ×3 (05:51→21:41)
[2018-06-29] MEDS: HUM INSULIN NPH/REG INSULIN HM 100 UNIT/1 ML 3 ML SUBCUT SCH ×2 (08:21→18:11)
[2018-06-29] MEDS: NAPROXEN 375 MG TABLET PO SCH ×2 (08:22→18:06)
[2018-06-29] MEDS: TAMSULOSIN HCL 0.4 MG CAP.SR.24H PO SCH ×2 (08:22→21:40)
[2018-06-29 08:39] LABS: ABSOLUTE EOSINOPHILS # (AUTO) 0.2 10^3/uL (0.0-0.6); ABSOLUTE LYMPHOCYTES (AUTO) 1.5 10^3/uL (0.5-4.7); ABSOLUTE MONOCYTES (AUTO) 0.7 10^3/uL (0.1-1.4); ABSOLUTE NEUT (AUTO) 6.7 10^3/uL (1.7-8.2); BASOPHILS % (AUTO) 0.5 % (0-2); EOSINOPHILS % (AUTO) 1.7 % (0-6); HEMATOCRIT 25.9 % (37.9-51.0); HEMOGLOBIN 8.4 g/dL (13.5-17.0); LYMPHOCYTES % (AUTO) 16.8 % (13-45); MEAN CORPUSCULAR HEMOGLOBIN 26.3 pg (27.0-33.4); MEAN CORPUSCULAR HGB CONC 32.6 g/dL (32.0-36.0); MEAN CORPUSCULAR VOLUME 81 fl (80-97); PLATELET COUNT 322 10^3/uL (150-450); RED CELL DISTRIBUTION WIDTH 20.2 % (11.5-14.0); TOTAL CELLS COUNTED % (AUTO) 100 %; WHITE BLOOD COUNT 9.2 10^3/uL (4.0-10.5)
[2018-06-29 08:59] LABS: ALANINE AMINOTRANSFERASE 10 U/L (21-72); ALBUMIN 2.5 g/dL (3.5-5.0); ALKALINE PHOSPHATASE 141 U/L (38-126); ANION GAP 7 (5-19); ASPARTATE AMINO TRANSFERASE 12 U/L (17-59); BILIRUBIN,DIRECT 0.2 mg/dL (0.0-0.4); BILIRUBIN,TOTAL 0.2 mg/dL (0.2-1.3); BLOOD UREA NITROGEN 17 mg/dL (7-20); CALCIUM 8.1 mg/dL (8.4-10.2); CARBON DIOXIDE 29 mmol/L (22-30); CHLORIDE 102 mmol/L (98-107); GLUCOSE 222 mg/dL (75-110); POTASSIUM 4.6 mmol/L (3.6-5.0); SODIUM 137.5 mmol/L (137-145); TOTAL PROTEIN 6.9 g/dL (6.3-8.2)
[2018-06-29] MEDS: DOCUSATE SODIUM 100 MG CAPSULE PO SCH ×2 (11:06→18:03)
[2018-06-29] MEDS: SENNOSIDES/DOCUSATE 8.6-50 MG 1 EACH TABLET PO SCH ×2 (11:06→18:06)
[2018-06-29] MEDS: NA PHOS,M-B/NA PHOS,DI-BA (ADULT) 133 ML ENEMA PR SCH (11:07)
[2018-06-29] MEDS: VENLAFAXINE HCL 25 MG TABLET PO SCH ×2 (11:13→21:41)
[2018-06-29] MEDS: MINERAL OIL/PETROLATUM,WHITE CREAM 114 GM TP SCH (11:15)
[2018-06-29] MEDS: POLYETHYLENE GLYCOL 3350 POWDER 17 GM/1 PACKET PO SCH (11:16)
[2018-06-29] MEDS: LIDOCAINE 5% (700 MG) TRANSDERMAL ADH..PATCH TP SCH (11:16)
[2018-06-29] MEDS: MORPHINE SULFATE SR 15 MG TABLET PO SCH ×2 (11:17→21:41)
[2018-06-29] MEDS: LISINOPRIL 10 MG TABLET PO SCH (11:17)
[2018-06-29] MEDS: FAMOTIDINE 20 MG TABLET PO SCH ×2 (11:17→21:41)
[2018-06-29] MEDS: NORMAL SALINE 10 ML SDV (SCHEDULED) IV SCH ×2 (11:17→21:42)
[2018-06-29] MEDS: AMLODIPINE BESYLATE 5 MG TABLET PO SCH (11:17)
[2018-06-29] MEDS: KETOROLAC TROMETHAMINE 10 MG TABLET PO PRN (16:03)
[2018-06-29] MEDS: BISACODYL 5 MG TABEC PO PRN (16:03)
[2018-06-29] MEDS: MAG HYDROX/AL HYDROX/SIMETH SUSP 30 ML UDCUP PO PRN (16:47)
--- NOTE | 2018-06-29 18:12 | PDOC PROGRESS REPORT ---
Subjective Progress Note for:: 06/29/18 Subjective:: Laying on his bed comfortably. Does not seem to be in distress. States that his abdominal pain is better than yesterday. States he had 4 bowel movements since yesterday and today. Today I discussed with him about discontinuing his Lopez but he was not happy about this. I explained the risks and benefits of having a Lopez for prolonged time. Reason For Visit: LEUKOCYTOSIS Physical Exam Vital Signs: Temp Pulse Resp BP Pulse Ox 98.6 F 81 17 196/90 H 98 06/29/18 11:16 06/29/18 11:16 06/29/18 11:16 06/29/18 11:16 06/29/18 11:16 Intake & Output 06/28/18 06/29/18 06/30/18 06:59 06:59 06:59 Intake Total 250 820 Output Total 2425 850 Balance -2175 -30 Weight 178 lb 9.191 oz 174 lb 9.698 oz General appearance: PRESENT: no acute distress Head exam: PRESENT: atraumatic, normocephalic Eye exam: PRESENT: EOMI, PERRLA. ABSENT: scleral icterus Ear exam: PRESENT: normal external ear exam Mouth exam: PRESENT: tongue midline Neck exam: ABSENT: tracheal deviation Respiratory exam: PRESENT: clear to auscultation manuel, symmetrical Cardiovascular exam: PRESENT: +S1, +S2 GI/Abdominal exam: PRESENT: distended - Mild, normal bowel sounds, soft, tenderness - Minimal Extremities exam: PRESENT: other - Subjective edema of bilateral elbows Musculoskeletal exam: PRESENT: other - Right BKA with dressing noted Neurological exam: PRESENT: alert, awake, oriented to person, oriented to place, oriented to time, oriented to situation, CN II-XII grossly intact Skin exam: PRESENT: dry, warm Results Laboratory Results: 06/29/18 08:10 06/29/18 08:10 06/29/18 06/29/18 08:10 08:10 WBC 9.2 RBC 3.20 L Hgb 8.4 L Hct 25.9 L MCV 81 MCH 26.3 L MCHC 32.6 RDW 20.2 H Plt Count 322 Seg Neutrophils % 73.0 Lymphocytes % 16.8 Monocytes % 8.0 Eosinophils % 1.7 Basophils % 0.5 Absolute Neutrophils 6.7 Absolute Lymphocytes 1.5 Absolute Monocytes 0.7 Absolute Eosinophils 0.2 Absolute Basophils 0.0 Sodium 137.5 Potassium 4.6 Chloride 102 Carbon Dioxide 29 Anion Gap 7 BUN 17 Creatinine 1.11 Est GFR ( Amer) > 60 Est GFR (Non-Af Amer) > 60 Glucose 222 H Calcium 8.1 L Magnesium 1.8 Total Bilirubin 0.2 AST 12 L ALT 10 L Alkaline Phosphatase 141 H Total Protein 6.9 Albumin 2.5 L 06/24/18 14:40 Blood Blood Culture - Final NO GROWTH IN 5 DAYS 06/24/18 13:08 Blood Blood Culture - Final NO GROWTH IN 5 DAYS 06/27/18 06/27/18 06/27/18 06:30 06:30 15:15 Creatine Kinase 42 L 42 L CK-MB (CK-2) 1.16 Troponin I < 0.012 06/27/18 06/27/18 06/27/18 15:15 23:28 23:28 Creatine Kinase 33 L CK-MB (CK-2) 1.00 0.81 Troponin I < 0.012 < 0.012 Impressions: KUB X-Ray 06/13/18 06:00 IMPRESSION: NO RADIOGRAPHIC EVIDENCE FOR ACUTE ABDOMINAL DISEASE. Marked constipation. Guidance Fluoroscopy 06/14/18 00:00 IMPRESSION: SUCCESSFUL PLACEMENT OF A 5 FR DUAL LUMEN 36 CM PICC IN THE LEFT BASILIC VEIN. Interventional Vascular Procedure 06/14/18 00:00 IMPRESSION: SUCCESSFUL PLACEMENT OF A 5 FR DUAL LUMEN 36 CM PICC IN THE LEFT BASILIC VEIN. PICC Line Insertion 06/14/18 00:00 IMPRESSION: SUCCESSFUL PLACEMENT OF A 5 FR DUAL LUMEN 36 CM PICC IN THE LEFT BASILIC VEIN. Foot X-Ray 06/18/18 00:00 IMPRESSION: Findings consistent with osteomyelitis in the surgical bed. Abdomen X-Ray 06/28/18 00:00 IMPRESSION: Constipation. Cannot exclude limited right lower lobe pneumonia. Assessment & Plan - Diagnosis (1) Acute urinary retention Is this a current diagnosis for this admission?: Yes (2) Diabetic infection of right foot Is this a current diagnosis for this admission?: Yes (3) UTI (urinary tract infection) Qualifiers: Urinary tract infection type: site unspecified Hematuria presence: with hematuria Qualified Code(s): N39.0 - Urinary tract infection, site not specified; R31.9 - Hematuria, unspecified; R31.9 - Hematuria, unspecified Is this a current diagnosis for this admission?: Yes (4) CKD stage 3 secondary to diabetes Is this a current diagnosis for this admission?: Yes (5) HTN (hypertension) Qualifiers: Hypertension type: unspecified secondary hypertension Qualified Code(s): I15.9 - Secondary hypertension, unspecified; I15 - Secondary hypertension Is this a current diagnosis for this admission?: Yes (6) MSSA bacteremia Is this a current diagnosis for this admission?: Yes (7) Constipation Qualifiers: Constipation type: drug induced constipation Qualified Code(s): K59.03 - Drug induced constipation Is this a current diagnosis for this admission?: Yes - Plan Summary Plan Summary: Constipation-his abdominal pain is better as he had 4 bowel movements yesterday and today combined. States that he still constipated. I spoke with nursing and they tell me that in the last few days patient has refused some of his bowel regimens. I confronted patient with this and he denies it. Per nursing patient had refused some of his bowel regimens and has not taken them as scheduled. I have spoken to patient about this again and advised him to be more compliant with his medications as prescribed. I did get an abdominal series x-ray yesterday which showed constipation and concern for right lower lobe pneumonia although he remains afebrile. Will monitor for now. 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 Patient had his Lopez since admission and had a changed about 6 days ago. At this time we will give him a voiding trial and see if he is having urinary retention or not. I gave order to nursing for bladder scan every 4 hours and straight cath if he has more than 350 cc on scan. If he continues to retain then we need to place the Lopez back and at that time he will need to follow-up with urology for further management. UTI- resolved ZANE- resolved CKD- stage 3- likely 2/2 DM type 2 MSSA bacteremia- BCx now neg- finished Abx with Ancef. likely was from the right foot infection Disposition-Case management is working on his placement but it has been difficult
[2018-06-29] MEDS: INSULIN LISPRO 100 UNIT/ML 3 ML VIAL SUBCUT PRN (18:49)
[2018-06-29] MEDS: ACETAMINOPHEN 325 MG TABLET PO PRN (20:10)
[2018-06-29] MEDS: CLONAZEPAM 1 MG TABLET PO PRN (20:35)
[2018-06-29] MEDS: TRAZODONE HCL 50 MG TABLET PO SCH (21:41)
[2018-06-30] MEDS: HYDRALAZINE HCL INJ/PF 20 MG/1 ML SDV IV PRN (01:15)
[2018-06-30] MEDS: KETOROLAC TROMETHAMINE 10 MG TABLET PO PRN (06:14)
[2018-06-30] MEDS: LACTULOSE SYRUP 20 GM/30 ML UDCUP PO SCH ×4 (06:15→18:12)
[2018-06-30] MEDS: GABAPENTIN 100 MG CAPSULE PO SCH (06:15)
[2018-06-30] MEDS: NA PHOS,M-B/NA PHOS,DI-BA (ADULT) 133 ML ENEMA PR SCH ×3 (06:20→21:40)
[2018-06-30] MEDS: HEPARIN SOD (PORCINE) 5,000 UNIT/ML 1 ML SYRINGE SUBCUT SCH ×3 (07:44→21:41)
[2018-06-30] MEDS: LIDOCAINE 5% (700 MG) TRANSDERMAL ADH..PATCH TP SCH (10:10)
[2018-06-30] MEDS: POLYETHYLENE GLYCOL 3350 POWDER 17 GM/1 PACKET PO SCH (10:16)
[2018-06-30] MEDS: AMLODIPINE BESYLATE 5 MG TABLET PO SCH (10:16)
[2018-06-30] MEDS: DOCUSATE SODIUM 100 MG CAPSULE PO SCH ×2 (10:16→18:16)
[2018-06-30] MEDS: SENNOSIDES/DOCUSATE 8.6-50 MG 1 EACH TABLET PO SCH ×2 (10:16→18:16)
[2018-06-30] MEDS: HUM INSULIN NPH/REG INSULIN HM 100 UNIT/1 ML 3 ML SUBCUT SCH ×2 (10:17→18:12)
[2018-06-30] MEDS: TAMSULOSIN HCL 0.4 MG CAP.SR.24H PO SCH ×2 (10:17→21:39)
[2018-06-30] MEDS: NAPROXEN 375 MG TABLET PO SCH ×2 (10:17→18:16)
[2018-06-30] MEDS: VENLAFAXINE HCL 25 MG TABLET PO SCH ×2 (10:17→21:39)
[2018-06-30] MEDS: FAMOTIDINE 20 MG TABLET PO SCH ×2 (10:17→21:40)
[2018-06-30] MEDS: LISINOPRIL 10 MG TABLET PO SCH (10:17)
[2018-06-30] MEDS: MORPHINE SULFATE SR 15 MG TABLET PO SCH ×2 (10:18→21:39)
[2018-06-30] MEDS: NORMAL SALINE 10 ML SDV (SCHEDULED) IV SCH ×2 (10:19→21:41)
[2018-06-30] MEDS: MINERAL OIL/PETROLATUM,WHITE CREAM 114 GM TP SCH (10:20)
--- NOTE | 2018-06-30 13:22 | TRANSFER SUMMARY E ---
Transfer Summary NAME: LEEANNE WYLIE : 1960 AGE: 57Y ADMITTED: 06/08/2018 TRANSFERRED: 06/30/2018 CODE STATUS: FULL CODE PRIMARY CARE PROVIDER: VONDA Hernandez DISCHARGE DIAGNOSES: Includes: 1. Right diabetic foot infection/osteomyelitis status post amputation. 2. Chronic kidney disease, stage-III due to diabetes. 3. Methicillin sensitive staphylococcus aureus bacteremia; has completed course of IV antibiotics. 4. Hypertension. 5. Opiate dependence, continuous. 6. Constipation which is opiate induced. 7. Urinary retention. 8. Poorly controlled diabetes mellitus type-2; not obese. DISCHARGE MEDICATIONS: Include: 1. Norvasc 5 mg p.o. daily. 2. Dulcolax 5 mg p.o. daily p.r.n. 3. Clonopin 2 mg p.o. q. hour of sleep p.r.n. 4. Colace 100 mg p.o. b.i.d. 5. Neurontin 300 mg p.o. q. 8 hours. 6. NPH 70/30 14 units subcutaneous b.i.d. 7. Humalog sliding scale coverage. 8. Lisinopril 20 mg p.o. daily. 9. MS-Contin sustained release 15 mg p.o. q. 12 hours. 10. Fleets enema 1 enema daily p.r.n. 11. Naproxen 375 mg p.o. b.i.d. 12. Nicotine patch 21 mg transdermally daily p.r.n. 13. Miralax 17 grams p.o. daily. 14. Senna plus 1 tablet p.o. b.i.d. 15. Flomax 0.4 mg p.o. daily. 16. Trazodone 500 mg p.o. q. hour of sleep. 17. Effexor 25 mg p.o. q. 12 hours. The sliding scale coverage is as follows: Before meals and after meals, blood glucose less than 70 no coverage; blood glucose 150-200 2 units; blood glucose 201-250 4 units; from 251-300 is 6 units, from 301-350 is 8 units; from 351-400 is 10 units. Blood glucose greater than 400 is 12 units. DIET: Diabetic. ACTIVITY: As tolerated. CONDITION: Fair. DIAGNOSTICS: Lab values are as follows: Hematology obtained on 06/29/2018: WBCs are 9.2, hemoglobin is 10.4, hematocrit is 35.9, platelet count is 322,000. Coagulation panel obtained on 06/19/2018: PT is 15.0, INR is 3.12. Venous blood gas obtained on 06/08/2018: His pH is 7.47, pCO2 is 36.5, pO2 is 23.7. Chemistry obtained on 06/30/2017: Sodium is 137, potassium 4.6, chloride is 102, carbon dioxide 29, BUN 17, creatinine is 1.11, glucose 115, calcium is 8.1, phosphorous is 2.8, magnesium is 1.9, iron is 28.7, TIBC is 154, percent saturation is 19. Ferritin is 344, bilirubin 0.28, AST 12, ALT 10, delvin-phos 141, CK is 33, CKMB is 0.81. Troponin is 0.012 x3 sets. C-reactive protein is 396. Total protein is 6.9, albumin 2.5, B12 is 692, folate is 5.19. Urinalysis obtained on 06/07/2018: Color yellow, appearance cloudy, pH 5.0, specific gravity 1.017, protein 100, glucose greater than 500, ketones 20, occult blood moderate, nitrite negative, BILI negative, urobilinogen is negative, leukocyte esterase is large, WBC 124, RBC is 96, WBCs few, mucous rate. Microbiology obtained on 06/07/2018: Urine culture revealed kay. Blood cultures on 06/08/2018: Reveals MSSA staph. Blood cultures obtained on 06/23/2018 reveals no growth. Blood cultures obtained on 06/24/2018 reveals no growth. KUB obtained on 06/13/2018 reveals no radiographic evidence for acute abdominal disease but marked constipation. Foot x-ray obtained on 06/18/2018 reveals findings consistent with osteomyelitis in the surgical bed. Abdominal x-ray obtained on 06/28/2018 reveals constipation. Pathology obtained on 06/22/2018 reveals gangrene with acute and chronic osteomyelitis of the foot, clean within the margins. PHYSICAL EXAMINATION: VITAL SIGNS: Temperature is 98.8, pulse 78, respirations 20, blood pressure 160/96, oxygen saturation is 94% on room air. HISTORY OF PRESENT ILLNESS: The patient is a 57-year-old male with a past medical history of diabetes mellitus type-2 and chronic wound ulceration. The patient presented to the emergency department with a chief complaint of urinary retention. The patient states that he had been unable to pass urine except for a small amount since the day prior to presentation. The patient had a moderately severe non-radiating lower abdominal pain, discomfort and pressure but denied any nausea, vomiting, or diarrhea. The patient was able to void small amounts of urine and it has also been dark yellow with no evidence of blood. The patient also complained of chronic pain of the left shoulder which is an ache for more than a week. The patient's right foot dressing needed to be changed and the patient has not had it changed in days. While in the emergency department, a Lopez was placed and drained only 250 mL of urine but the patient's CBC showed a white count of 31,000, C-reactive protein was greater than 200, and concerning was also for osteomyelitis. Given these findings, the patient was referred to the hospitalist for admission and management. HOSPITAL COURSE: The patient was admitted to the Medical/Surgical Unit. The patient was covered with antibiotic coverage. Patient's blood cultures were positive for MSSA. The patient did continue cephalosporin for greater than 2 weeks and has completed his course of treatment. The patient has had persistently negative blood cultures at this time. No fevers are noted either. The patient was seen and evaluated by the surgery service and the patient did have amputation on 06/22/[address] Gene Woo for which the patient has tolerated well. The patient has had his Lopez removed with voiding trials and at this time has been able to pass urine with the addition of an alpha-holly. DISCHARGE PLANNIN. The patient is to follow up with his primary care provider as needed. 2. The patient needs to follow up with Dr. Ojeda at the [facility] within 1 to 2 weeks for hospital followup. Time spent on this transfer including resource alignment is 35 minutes. DICTATING PHYSICIAN: SARAH DUMONT NP [id number] PHY#: [id number] ID: [id number] JOB#: [id number] ACCT: [id number] cc:SARAH DUMONT NP >
[2018-06-30] MEDS: GABAPENTIN 300 MG CAPSULE PO SCH ×2 (13:51→21:39)
[2018-06-30] MEDS ORDERED: GABAPENTIN 100 MG CAPSULE PO SCH (14:00)
[2018-06-30 20:16] VITALS: BP 153/71
[2018-06-30] MEDS: TRAZODONE HCL 50 MG TABLET PO SCH (21:40)
[2018-06-30] MEDS: CLONAZEPAM 1 MG TABLET PO PRN (21:40)
== END 2018-06-30 23:27 | disposition short-term general hospital (02) | DRG 617 ==
LOC: ER 21:50 → EH 06-08 04:18 → 4N 06-08 13:15
PROVIDERS: ADMIT Emergency Medicine; ATTEND Emergency Medicine
PROC: 02HV33Z Insertion of Infusion Device into Superior Vena Cava, Percutaneous Approach (ICD-10-PCS; 2018-06-14)
PROC: B548ZZA Ultrasonography of Superior Vena Cava, Guidance (ICD-10-PCS; 2018-06-14)
PROC: 30233N1 Transfusion of Nonautologous Red Blood Cells into Peripheral Vein, Percutaneous Approach (ICD-10-PCS; 2018-06-15)
PROC: 30233N1 Transfusion of Nonautologous Red Blood Cells into Peripheral Vein, Percutaneous Approach (ICD-10-PCS; 2018-06-16)
PROC: 0Y6H0Z2 Detachment at Right Lower Leg, Mid, Open Approach (ICD-10-PCS; principal; 2018-06-30)
DX: E11.621 Type 2 diabetes mellitus with foot ulcer (principal); M86.9 Osteomyelitis, unspecified; R78.81 Bacteremia; F11.20 Opioid dependence, uncomplicated; N39.0 Urinary tract infection, site not specified; B37.49 Other urogenital candidiasis; L97.413 Non-pressure chronic ulcer of right heel and midfoot with necrosis of muscle; E11.22 Type 2 diabetes mellitus with diabetic chronic kidney disease; E11.65 Type 2 diabetes mellitus with hyperglycemia; N18.3 Chronic kidney disease, stage 3 (moderate); I12.9 Hypertensive chronic kidney disease with stage 1 through stage 4 chronic kidney disease, or unspecified chronic kidney disease; B95.61 Methicillin susceptible Staphylococcus aureus infection as the cause of diseases classified elsewhere; E11.69 Type 2 diabetes mellitus with other specified complication; T40.2X5A Adverse effect of other opioids, initial encounter; K59.03 Drug induced constipation; R33.9 Retention of urine, unspecified; E78.5 Hyperlipidemia, unspecified; M25.512 Pain in left shoulder; L29.9 Pruritus, unspecified; R06.6 Hiccough; F17.210 Nicotine dependence, cigarettes, uncomplicated; M48.00 Spinal stenosis, site unspecified; D50.9 Iron deficiency anemia, unspecified; F32.9 Major depressive disorder, single episode, unspecified; Z79.4 Long term (current) use of insulin; Z89.421 Acquired absence of other right toe(s); Z71.6 Tobacco abuse counseling; Z91.19 Patient's noncompliance with other medical treatment and regimen; Z83.3 Family history of diabetes mellitus; Z82.49 Family history of ischemic heart disease and other diseases of the circulatory system
CPT/HCPCS: 01482; 36415; 36430; 36569; 51702; 74018; 74019; 76937; 77001; 80048; 80053; 80202; 81001; 82550; 82553; 82607; 82728; 82746; 82803; 82962; 83540; 83550; 83735; 84100; 84484; 85025; 85027; 85045; 85610; 85730; 86140; 86850; 86900; 86901; 86920; 87040; 87077; 87086; 87186; 88307; 88311; 96365; 99284; C1769; C9290; J0131; J0330; J0360; J0690; J0696; J1450; J1642; J1644; J1756; J1815; J2250; J2270; J2310; J2405; J2704; J2765; J3010; J3230; J3370; J3480; J3490; J7030; J7060; P9016; S0119